=== PATIENT | male | born 1975 | race African-American/Black ===

== ENCOUNTER 2016-04-07 15:53 | Emergency (ER) | payer MEDICAID ==
[2016-04-07] MEDS ORDERED: NORMAL SALINE 1000 ML 1,000 ML IV ONE ×2 (16:42→19:04)
[2016-04-07] MEDS ORDERED: ONDANSETRON HCL INJ/PF 4 MG/2 ML SDV IV ONE ×2 (16:42→21:48)
[2016-04-07 17:11] LABS: HEMATOCRIT 56.2 % (37.9-51.0); HGB HCT DIFFERENCE -2.2; MEAN CORPUSCULAR HEMOGLOBIN 24.3 pg (27.0-33.4); MEAN CORPUSCULAR VOLUME 76 fl (80-97); RED CELL DISTRIBUTION WIDTH 16.2 % (11.5-14.0)
[2016-04-07 17:24] LABS: ALANINE AMINOTRANSFERASE 61 U/L (21-72); ALBUMIN 5.3 g/dL (3.5-5.0); ALKALINE PHOSPHATASE 82 U/L (38-126); ANION GAP 18 (5-19); ASPARTATE AMINO TRANSFERASE 34 U/L (17-59); BILIRUBIN,TOTAL 1.6 mg/dL (0.2-1.3); BLOOD UREA NITROGEN 18 mg/dL (7-20); CALCIUM 11.6 mg/dL (8.4-10.2); CARBON DIOXIDE 22 mmol/L (22-30); CHLORIDE 100 mmol/L (98-107); CREATININE RESULT 1.78 mg/dL (0.52-1.25); GLUCOSE 107 mg/dL (75-110); POTASSIUM 4.7 mmol/L (3.6-5.0); SODIUM 139.6 mmol/L (137-145)
[2016-04-07 17:34] LABS: BAND NEUTROPHILS % (MANUAL) 1 % (3-5); BASOPHILS % (MANUAL) 2 % (0-2); EOSINOPHILS % (MANUAL) 0 % (0-6); LYMPHOCYTES % (MANUAL) 5 % (13-45); TOTAL CELLS COUNTED 100
[2016-04-07 17:37] LABS: ANISOCYTOSIS 1+; HYPOCHROMASIA SLIGHT; MICROCYTOSIS 2+; OVALOCYTES SLIGHT; POIKILOCYTOSIS 1+; TARGET CELLS SLIGHT
[2016-04-07 17:38] LABS: RED BLOOD COUNT 7.39 10^6/uL (4.35-5.55)
--- NOTE | 2016-04-07 19:08 | ER Document Report ---
ED General - General Chief Complaint: Nausea/Vomiting Stated Complaint: NAUSEA/VOMITING Notes: Patient is a 41-year-old male with past medical history of stage IV colon cancer on active chemotherapy presents with vomiting and abdominal pain. States his primary concern is the vomiting as his level of abdominal pain today is typical for him. Described as a diffuse, cramping abdominal pain. Nothing improves or worsens his pain. Notes that he is had green output from the ostomy which is not uncommon for him. He has not seen his main doctor regarding today's concerns. He's had similar episodes in the past that required ED visits. He has not had any fever, cough weakness or numbness. TRAVEL OUTSIDE OF THE [place] IN LAST 30 DAYS: No - Related Data Allergies/Adverse Reactions: No Known Allergies Allergy (Verified 12/05/15 09:26) Past Medical History - General Information source: Patient - Social History Smoking Status: Never Smoker Frequency of alcohol use: None Drug Abuse: None Lives with: Family Family History: Reviewed & Not Pertinent - Past Medical History Cardiac Medical History: Reports: Hx Hypertension Pulmonary Medical History: Denies: Hx Tuberculosis Malignancy Medical History: Reports Hx Colorectal Cancer - With ileostomy placement. GI Medical History: Reports: Hx Colonoscopy Past Surgical History: Reports: Hx Abdominal Surgery - colon resection, Hx Appendectomy, Hx Bowel Surgery - Partial bowel resection, partial splenectomy, Hx Cholecystectomy, Hx Ileostomy - Immunizations Hx Diphtheria, Pertussis, Tetanus Vaccination: No Hx Pneumococcal Vaccination: 01/16/13 Review of Systems - Review of Systems Notes: Constitutional: Negative for fever. HENT: Negative for sore throat. Eyes: Negative for visual changes. Cardiovascular: Negative for chest pain. Respiratory: Negative for shortness of breath. Gastrointestinal: Positive for abdominal pain, vomiting Genitourinary: Negative for dysuria. Musculoskeletal: Negative for back pain. Skin: Negative for rash. Neurological: Negative for headaches, weakness or numbness. 10 point ROS negative except as marked above and in HPI. Physical Exam - Vital signs Vitals: Temp Pulse Resp BP Pulse Ox 97.5 F 82 20 115/82 98 04/07/16 16:05 04/07/16 16:05 04/07/16 16:05 04/07/16 16:05 04/07/16 16:05 Interpretation: Normal Notes: PHYSICAL EXAMINATION: GENERAL: Well-appearing, well-nourished and in no acute distress. HEAD: Atraumatic, normocephalic. EYES: Pupils equal round and reactive to light, extraocular movements intact, sclera anicteric, conjunctiva are normal. ENT: nares patent, oropharynx clear without exudates. Moist mucous membranes. NECK: Normal range of motion, supple without lymphadenopathy LUNGS: Breath sounds clear to auscultation bilaterally and equal. No wheezes rales or rhonchi. HEART: Regular rate and rhythm without murmurs ABDOMEN: Soft, diffuse mild tenderness, normoactive bowel sounds. No guarding, no rebound. No masses appreciated. Ostomy with liquid green output. EXTREMITIES: Normal range of motion, no pitting or edema. No cyanosis. NEUROLOGICAL: No focal neurological deficits. Moves all extremities spontaneously and on command. PSYCH: Normal mood, normal affect. SKIN: Warm, Dry, normal turgor, no rashes or lesions noted. Course - Re-evaluation Re-evalutation: 04/07/16 19:06 Patient presents with vomiting and diffuse abdominal pain in the setting of stage IV metastatic colon cancer, actively on chemotherapy his ostomy is having clear, bilious output. He has diffuse abdominal pain without rebound or guarding. Primary concern is bowel obstruction versus ileus. His labs do demonstrate prominent leukocytosis with associated hemoconcentration. His other vitals are within normal limits and I do not suspect sepsis at this time. A bowel perforation is also on the differential although I think this is less likely given his overall nontoxic appearance and absence of any peritoneal signs on abdominal exam. He will receive fluids, pain control, antiemetics and a CT scan of the abdomen and pelvis without contrast due to his acute kidney injury and inability to tolerate oral intake at this time. 04/07/16 20:[address] scan of the abdomen and pelvis does not show any evidence of an obstruction or ileus. States his abdominal pain is improved at this time. He is not tolerating oral intake. Vitals remain within normal limits. I do suspect that the elevated white blood cell count was due to hemoconcentration as demonstrated by an elevated hemoglobin and platelet count as well as patient' s episodes of vomiting prior to arrival. He is overall very well in appearance this time. Review of prior medical records show that he often has a green output from his ostomy that this is not different and patient does confirm this. At this time will discharge with return precautions and follow-up recommendations. Verbal discharge instructions given a the bedside and opportunity for questions given. Medication warnings reviewed. Patient is in agreement with this plan and has verbalized understanding of return precautions and the need for primary care follow-up in the next 24-72 hours. - Vital Signs Vital signs: Temp Pulse Resp BP Pulse Ox 97.5 F 82 12 128/96 H 91 L 04/07/16 16:05 04/07/16 16:05 04/08/16 02:01 04/08/16 02:00 04/08/16 02:01 - Laboratory Result Diagrams: 04/07/16 16:40 04/07/16 16:40 Laboratory results interpreted by me: 04/07/16 04/07/16 16:40 16:40 WBC 20.0 H RBC 7.39 H Hgb 18.0 H Hct 56.2 H MCV 76 L MCH 24.3 L RDW 16.2 H Plt Count 452 H Seg Neuts % (Manual) 86 H Band Neutrophils % 1 L Lymphocytes % (Manual) 5 L Abs Neuts (Manual) 17.4 H Abs Basophils (Manual) 0.4 H Creatinine 1.78 H Est GFR ( Amer) 51 L Est GFR (Non-Af Amer) 42 L Calcium 11.6 H Total Bilirubin 1.6 H Total Protein 10.0 H Albumin 5.3 H - Diagnostic Test Radiology reviewed: Reports reviewed Discharge - Discharge Clinical Impression: Abdominal pain Qualifiers: Abdominal location: generalized Qualified Code(s): R10.84 - Generalized abdominal pain Vomiting Qualifiers: Vomiting type: unspecified Vomiting Intractability: non-intractable Nausea presence: with nausea Qualified Code(s): R11.2 - Nausea with vomiting, unspecified Condition: Good Disposition: HOME, SELF-CARE Additional Instructions: Your CT scan today was normal and did not show any evidence of an obstruction. You need to follow-up with her primary doctors at your earliest ability. Return to the emergency department immediately if you have persistent vomiting, pass out, have worsening abdominal pain, develop a fever greater than 100.4F, or have any other symptoms that are worrisome to you. Referrals: ANDREI WILLARD MD [Primary Care Provider] - Follow up tomorrow
[2016-04-07] MEDS: HYDROMORPHONE HCL INJ/PF 2 MG/ML AMPULE IV PRN ×2 (19:19→21:56)
[2016-04-07] MEDS ORDERED: PROMETHAZINE HCL INJ 25 MG/1 ML VIAL IV ONE (20:23)
[2016-04-07] MEDS ORDERED: METOCLOPRAMIDE HCL INJ/PF 10 MG/2 ML SDV IV ONE (20:39)
[2016-04-08] MEDS ORDERED: NALOXONE HCL INJ/PF 0.4 MG/1 ML SDV IV ONE (00:16)
[2016-04-08 02:04] VITALS: BP 128/96
== END 2016-04-08 02:23 | disposition home or self-care (01) ==
LOC: ER 15:53
DX: R11.2 Nausea with vomiting, unspecified (principal); R10.84 Generalized abdominal pain; C18.9 Malignant neoplasm of colon, unspecified; I10 Essential (primary) hypertension; Z93.3 Colostomy status
CPT/HCPCS: 36591; 96376; 99284; 96361; 96374; 96375; 36415; 85025; 80053; 74176; J2765; J2310; J1170; J2405; J7030

== ENCOUNTER 2016-05-29 06:33 | Inpatient (IN) | payer MEDICAID ==
[2016-05-29] MEDS ORDERED: NORMAL SALINE 1,000 ML IV ONE (07:30)
--- NOTE | 2016-05-29 07:30 | ER Document Report ---
ED GI/ - General Mode of Arrival: Medic Information source: Patient TRAVEL OUTSIDE OF THE [place] IN LAST 30 DAYS: No - HPI Patient complains to provider of: Abdominal pain Onset: Other - x2 days Timing/Duration: Persistent Associated symptoms: Fever, Vomiting Similar symptoms previously: Yes Recently seen / treated by doctor: Yes <CYN SCHMITT - Last Filed: 05/29/16 08:23> <ABHILASH MANZANARES - Last Filed: 05/29/16 17:08> - General Stated Complaint: URINARY PROBLEMS Notes: Patient is a 41-year-old male that presents to the emergency department today with complaints of abdominal pain for 2 days. Patient is on chemotherapy, and has been every other week for 11 years according to him for colorectal. Patient 's last chemotherapy treatment was 3 days ago. Patient states his bladder felt hard and he has had associated vomiting and hematuria. Patient states his pain today feels similar to when his ileostomy is obstructed however he usually has constant vomiting when that occurs. Patient states yesterday he felt hot and had a temperature of 100.6 in the ambulance on the way here today. Patient states he vomited once last night. Patient states he has a mild cough and has had one for a few weeks and was started on an antibiotic by his oncologist but he cannot remember which one. (CYN SCHMITT) - Related Data Allergies/Adverse Reactions: No Known Allergies Allergy (Verified 12/05/15 09:26) Home Medications: Current Home Medications Alprazolam [Xanax 0.5 mg Tablet] 0.5 mg PO BID 05/29/16 [History] Diphenoxylate HCl/Atropine [Lomotil 2.5-0.025 mg Tablet] 1 tab PO TIDP PRN 05/29 [History] Hydromorphone HCl [Dilaudid] 8 mg PO Q4HP PRN 05/29/16 [History] Ondansetron HCl [Zofran 8 mg Tablet] 8 mg PO Q8HP PRN 05/29/16 [History] Promethazine HCl [Phenergan] 25 mg PO Q6 05/29/16 [History] Zolpidem Tartrate [Ambien 5 mg Tablet] 5 mg PO HSP PRN 05/29/16 [History] Past Medical History - General Information source: Patient, [facility] Records - Social History Smoking Status: Unknown if Ever Smoked Cigarette use (# per day): No Frequency of alcohol use: None Drug Abuse: None Lives with: Family Family History: Reviewed & Not Pertinent - Past Medical History Cardiac Medical History: Reports: Hx Hypertension Malignancy Medical History: Reports Hx Colorectal Cancer - With ileostomy placement. GI Medical History: Reports: Hx Colonoscopy Past Surgical History: Reports: Hx Abdominal Surgery - colon resection, Hx Appendectomy, Hx Bowel Surgery - Partial bowel resection, partial splenectomy, Hx Cholecystectomy, Hx Ileostomy - Immunizations Hx Diphtheria, Pertussis, Tetanus Vaccination: No Hx Pneumococcal Vaccination: 01/16/13 <GIANNA SCHMITTON - Last Filed: 05/29/16 08:23> Review of Systems - Review of Systems Constitutional: See HPI, Fever EENT: No symptoms reported Cardiovascular: No symptoms reported Respiratory: See HPI, Cough Gastrointestinal: See HPI, Vomiting Genitourinary: See HPI, Hematuria Male Genitourinary: No symptoms reported Musculoskeletal: No symptoms reported Skin: No symptoms reported Hematologic/Lymphatic: No symptoms reported Neurological/Psychological: No symptoms reported -: Yes All other systems reviewed and negative <CYN SCHMITT - Last Filed: 05/29/16 08:23> Physical Exam <CYN SCHMITT - Last Filed: 05/29/16 08:23> <ABHILASH MANZANARES - Last Filed: 05/29/16 17:08> - Vital signs Vitals: Temp Pulse Resp BP Pulse Ox 99.6 F 88 18 127/86 H 98 05/29/16 07:33 05/29/16 07:33 05/29/16 07:33 05/29/16 07:33 05/29/16 07:33 - Notes Notes: Physical Exam: General: Alert, appears uncomfortable. HEENT: Normocephalic. Atraumatic. PERRL. Extraocular movements intact. Oropharynx clear. Neck: Supple. Non-tender. Respiratory: No respiratory distress. Clear and equal breath sounds bilaterally. Cardiovascular: Regular rate and rhythm. Abdominal: Diffuse lower abdominal tenderness, ileostomy in place. Decreased bowel Sounds. Back: Non-tender. No deformity or step off. Extremities: Moves all four extremities. Upper extremities: Normal inspection. Normal ROM. Lower extremities: Normal inspection. No edema. Normal ROM. Neurological: Normal cognition. AAOx4. Normal speech. Psychological: Normal affect. Normal Mood. Skin: Warm. Dry. Normal color. (CYN SCHMITT) Course - Laboratory Result Diagrams: 05/29/16 07:45 05/29/16 07:45 <CYN SCHMITT - Last Filed: 05/29/16 08:23> - Laboratory Result Diagrams: 05/29/16 07:45 05/29/16 08:50 <ABHILASH MANZANARES - Last Filed: 05/29/16 17:08> - Re-evaluation Re-evalutation: 05/29/16 10:11 Patient's has history of colon cancer and is status post ileostomy presents complaining of severe abdominal pain. The patient does have a history of small bowel obstruction and is concerned that he may have same. He said this morning he started "pissing blood". On exam, the patient appears uncomfortable, vital signs are stable except patient is febrile. The abdominal exam reveals tenderness in the lower quadrants however is soft, but with diminished bowel sounds. Medical decision making: This patient has a fever and abdominal pain with history of colon cancer. Concern for possible SBO, abscess, fistula. Awaiting CT results. He shouldn't being treated with IV fluids, analgesics and nausea medications. Antibiotics will be started empirically. (ABHILASH MANZANARES) - Vital Signs Vital signs: Temp Pulse Resp BP Pulse Ox 99.6 F 88 18 127/86 H 98 05/29/16 07:33 05/29/16 07:33 05/29/16 07:33 05/29/16 07:33 05/29/16 07:33 - Laboratory Laboratory results interpreted by me: 05/29/16 05/29/16 05/29/16 07:45 08:10 08:50 WBC 17.8 H RBC 5.95 H MCV 75 L MCH 23.8 L MCHC 31.7 L RDW 16.8 H Seg Neutrophils % 84.2 H Lymphocytes % 5.3 L Absolute Neutrophils 15.0 H Absolute Monocytes 1.8 H Carbon Dioxide 21 L Lipase 16.4 L Urine Protein 100 H Urine Ketones 20 H Urine Blood MODERATE H Ur Leukocyte Esterase LARGE H Discharge <CYN SCHMITT - Last Filed: 05/29/16 08:23> - Discharge Admitting Provider: Hospitalist Unit Admitted: Medical Floor <ABHILASH MANZANARES - Last Filed: 05/29/16 17:08> - Discharge Clinical Impression: SIRS (systemic inflammatory response syndrome) UTI (urinary tract infection) Qualifiers: Urinary tract infection type: site unspecified Hematuria presence: with hematuria Qualified Code(s): N39.0 - Urinary tract infection, site not specified Scribe Attestation: 05/29/16 13:29 I personally performed the services described in the documentation, reviewed and edited the documentation which was dictated to the scribe in my presence, and it accurately records my words and actions. (ABHILASH MANZANARES) Scribe Documentation - Scribe Written by Scribe:: Tamara Hernandez, 05/29/2016 0818 acting as scribe for :: Strong <CYN SCHMITT - Last Filed: 05/29/16 08:23>
[2016-05-29] MEDS ORDERED: MORPHINE SULFATE 10 MG/ML INJ IV ONE ×2 (07:31→10:09)
[2016-05-29] MEDS ORDERED: DIPHENHYDRAMINE HCL 50 MG/ML VIAL IV ONE ×2 (07:32→13:39)
[2016-05-29] MEDS ORDERED: METOCLOPRAMIDE HCL INJ/PF 10 MG/2 ML SDV IV ONE ×2 (07:32→13:39)
[2016-05-29 08:08] LABS: ABSOLUTE BASOPHILS # (AUTO) 0.1 10^3/uL (0.0-0.2); ABSOLUTE LYMPHOCYTES (AUTO) 0.9 10^3/uL (0.5-4.7); ABSOLUTE MONOCYTES (AUTO) 1.8 10^3/uL (0.1-1.4); BASOPHILS % (AUTO) 0.5 % (0-2); EOSINOPHILS % (AUTO) 0.1 % (0-6); HEMATOCRIT 44.7 % (37.9-51.0); HEMOGLOBIN 14.1 g/dL (13.5-17.0); HGB HCT DIFFERENCE -2.4; LYMPHOCYTES % (AUTO) 5.3 % (13-45); MEAN CORPUSCULAR HEMOGLOBIN 23.8 pg (27.0-33.4); MEAN CORPUSCULAR HGB CONC 31.7 g/dL (32.0-36.0); MEAN CORPUSCULAR VOLUME 75 fl (80-97); MONOCYTES % (AUTO) 9.9 % (3-13); RED BLOOD COUNT 5.95 10^6/uL (4.35-5.55); RED CELL DISTRIBUTION WIDTH 16.8 % (11.5-14.0); SEGMENTED NEUTROPHILS % (AUTO) 84.2 % (42-78); WHITE BLOOD COUNT 17.8 10^3/uL (4.0-10.5)
[2016-05-29 08:42] LABS: APPEARANCE,URINE TURBID; BILIRUBIN,URINE NEGATIVE (NEGATIVE); GLUCOSE, URINE NEGATIVE (NEGATIVE); KETONES,URINE 20 mg/dL (NEGATIVE); LEUKOCYTE ESTERASE,URINE LARGE (NEGATIVE); NITRITE,URINE NEGATIVE (NEGATIVE); PROTEIN,URINE 100 mg/dL (NEGATIVE); UROBILINOGEN,URINE NEGATIVE mg/dL (<2.0)
[2016-05-29 09:25] LABS: ALANINE AMINOTRANSFERASE 42 U/L (21-72); ALBUMIN 3.7 g/dL (3.5-5.0); ALKALINE PHOSPHATASE 56 U/L (38-126); ANION GAP 16 (5-19); ASPARTATE AMINO TRANSFERASE 22 U/L (17-59); BILIRUBIN,DIRECT 0.2 mg/dL (0.0-0.4); BLOOD UREA NITROGEN 7 mg/dL (7-20); CALCIUM 9.2 mg/dL (8.4-10.2); CARBON DIOXIDE 21 mmol/L (22-30); CHLORIDE 102 mmol/L (98-107); CREATININE RESULT 0.82 mg/dL (0.52-1.25); GLUCOSE 85 mg/dL (75-110); LIPASE 16.4 U/L (23-300); POTASSIUM 4.3 mmol/L (3.6-5.0); SODIUM 138.9 mmol/L (137-145); TOTAL PROTEIN 6.9 g/dL (6.3-8.2)
[2016-05-29] MEDS ORDERED: PIPERACILLIN/TAZOBACTAM 3.375 GM VIAL IV ONE (10:13)
[2016-05-29] MEDS ORDERED: KETOROLAC TROMETHAMINE INJ/PF 30 MG/1 ML SDV IV ONE (13:38)
[2016-05-29] MEDS: HEPARIN SOD (PORCINE) 5,000 UNIT/ML 1 ML SYRINGE SUBCUT SCH ×2 (13:58→22:09)
--- NOTE | 2016-05-29 16:52 | PDOC H&P ---
History of Present Illness Admission Date/PCP: 05/29/16 13:24 ANDREI WILLARD MD Oncologist: Dr. Lewis Patient complains of: Bladder pain History of Present Illness: Mr. Mansfield is a 41-year-old -[place] male with a past medical history of colon cancer with ileostomy that is well known to the hospitalist service. The patient presents to the emergency department with complaints of abdominal pain for 2 days. Patient is on chemotherapy, and has been every other week for 11 years according to him for colorectal. Patient's last chemotherapy treatment was 3 days ago. Patient states his bladder felt hard and he has had associated vomiting and hematuria. Patient states his pain today feels similar to when his ileostomy is obstructed however he usually has constant vomiting when that occurs. Patient states yesterday he felt hot and had a temperature of 100.6 in the ambulance on the way here today. Patient states he vomited once last night. Patient states he has a mild cough and has had one for a few weeks and was started on an antibiotic by his oncologist but he cannot remember which one. On the emergency department the patient had a CT which was not specific for obstructive process. According to the patient he does not feel instructed at this time. The patient's leukocytosis and UA were suggestive of UTI and the patient was referred to the hospitalist formation and management. Past Medical History Cardiac Medical History: Reports: Hypertension Malignancy Medical History: Reports: Colorectal Cancer - With ileostomy placement. GI Medical History: Reports: Other - Recurrent small bowel obstructions Psychiatric Medical History: Reports: Other - Opiate dependence Past Surgical History Past Surgical History: Reports: Appendectomy, Cholecystectomy, Ileostomy, Splenectomy - Partial Social History Information Source: Patient Occupation: Disabled Lives with: Family Smoking Status: Unknown if Ever Smoked Frequency of Alcohol Use: None Hx Recreational Drug Use: No Hx Prescription Drug Abuse: No - Advance Directive Resuscitation Status: Full Code Surrogate healthcare decision maker:: Mother Family History Family History: Reviewed & Not Pertinent Parental Family History Reviewed: Yes Children Family History Reviewed: Yes Sibling(s) Family History Reviewed.: Yes Medication/Allergy Home Medications: Alprazolam [Xanax 0.5 mg Tablet] 0.5 mg PO BID 05/29/16 Diphenoxylate HCl/Atropine [Lomotil 2.5-0.025 mg Tablet] 1 tab PO TIDP PRN 05/29 Hydromorphone HCl [Dilaudid] 8 mg PO Q4HP PRN 05/29/16 Ondansetron HCl [Zofran 8 mg Tablet] 8 mg PO Q8HP PRN 05/29/16 Promethazine HCl [Phenergan] 25 mg PO Q6 05/29/16 Zolpidem Tartrate [Ambien 5 mg Tablet] 5 mg PO HSP PRN 05/29/16 Allergies/Adverse Reactions: No Known Allergies Allergy (Verified 12/05/15 09:26) Review of Systems Constitutional: ABSENT: chills, fever(s), headache(s), weight gain, weight loss Eyes: ABSENT: visual disturbances Ears: ABSENT: hearing changes Cardiovascular: ABSENT: chest pain, dyspnea on exertion, edema, orthropnea, palpitations Respiratory: ABSENT: cough, hemoptysis Gastrointestinal: PRESENT: abdominal pain, nausea, vomiting. ABSENT: constipation, diarrhea, hematemesis, hematochezia Genitourinary: PRESENT: difficulty urinating, dysuria. ABSENT: hematuria Musculoskeletal: ABSENT: joint swelling Integumentary: ABSENT: rash, wounds Neurological: ABSENT: abnormal gait, abnormal speech, confusion, dizziness, focal weakness, syncope Psychiatric: ABSENT: anxiety, depression, homidical ideation, suicidal ideation Endocrine: ABSENT: cold intolerance, heat intolerance, polydipsia, polyuria Hematologic/Lymphatic: ABSENT: easy bleeding, easy bruising Physical Exam Vital Signs: Temp Pulse Resp BP Pulse Ox 99.6 F 88 18 127/86 H 98 05/29/16 07:33 05/29/16 07:33 05/29/16 07:33 05/29/16 07:33 05/29/16 07:33 Intake & Output 05/27/16 05/28/16 05/29/16 23:59 23:59 23:59 Weight 65 kg General appearance: PRESENT: no acute distress, well-developed, well-nourished Head exam: PRESENT: atraumatic, normocephalic Eye exam: PRESENT: conjunctiva pink, EOMI, PERRLA. ABSENT: scleral icterus Ear exam: PRESENT: normal external ear exam Mouth exam: PRESENT: moist, tongue midline Neck exam: ABSENT: carotid bruit, JVD, lymphadenopathy, thyromegaly Respiratory exam: PRESENT: clear to auscultation luisa. ABSENT: rales, rhonchi, wheezes Cardiovascular exam: PRESENT: RRR. ABSENT: diastolic murmur, rubs, systolic murmur Pulses: PRESENT: normal dorsalis pedis pul Vascular exam: PRESENT: normal capillary refill GI/Abdominal exam: PRESENT: firm, normal bowel sounds, soft, tenderness, other - Ileostomy with green output. ABSENT: distended, guarding, mass, organolmegaly , rebound Rectal exam: PRESENT: deferred Extremities exam: PRESENT: full ROM. ABSENT: calf tenderness, clubbing, pedal edema Neurological exam: PRESENT: alert, awake, oriented to person, oriented to place , oriented to time, oriented to situation, CN II-XII grossly intact. ABSENT: motor sensory deficit Psychiatric exam: PRESENT: appropriate affect, normal mood. ABSENT: homicidal ideation, suicidal ideation Skin exam: PRESENT: dry, intact, warm. ABSENT: cyanosis, rash Results Laboratory Results: Labs- Last Values WBC 17.8 10^3/uL (4.0-10.5) H 05/29/16 07:45 RBC 5.95 10^6/uL (4.35-5.55) H 05/29/16 07:45 Hgb 14.1 g/dL (13.5-17.0) 05/29/16 07:45 Hct 44.7 % (37.9-51.0) 05/29/16 07:45 MCV 75 fl (80-97) L 05/29/16 07:45 MCH 23.8 pg (27.0-33.4) L 05/29/16 07:45 MCHC 31.7 g/dL (32.0-36.0) L 05/29/16 07:45 RDW 16.8 % (11.5-14.0) H 05/29/16 07:45 Plt Count 445 10^3/uL (150-450) 05/29/16 07:45 Seg Neutrophils % 84.2 % (42-78) H 05/29/16 07:45 Lymphocytes % 5.3 % (13-45) L 05/29/16 07:45 Monocytes % 9.9 % (3-13) 05/29/16 07:45 Eosinophils % 0.1 % (0-6) 05/29/16 07:45 Basophils % 0.5 % (0-2) 05/29/16 07:45 Absolute Neutrophils 15.0 10^3/uL (1.7-8.2) H 05/29/16 07:45 Absolute Lymphocytes 0.9 10^3/uL (0.5-4.7) 05/29/16 07:45 Absolute Monocytes 1.8 10^3/uL (0.1-1.4) H 05/29/16 07:45 Absolute Eosinophils 0.0 10^3/uL (0.0-0.6) 05/29/16 07:45 Absolute Basophils 0.1 10^3/uL (0.0-0.2) 05/29/16 07:45 Sodium 138.9 mmol/L (137-145) 05/29/16 08:50 Potassium 4.3 mmol/L (3.6-5.0) 05/29/16 08:50 Chloride 102 mmol/L (98-107) 05/29/16 08:50 Carbon Dioxide 21 mmol/L (22-30) L 05/29/16 08:50 Anion Gap 16 (5-19) 05/29/16 08:50 BUN 7 mg/dL (7-20) 05/29/16 08:50 Creatinine 0.82 mg/dL (0.52-1.25) 05/29/16 08:50 Est GFR ( Amer) > 60 (>60) 05/29/16 08:50 Est GFR (Non-Af Amer) > 60 (>60) 05/29/16 08:50 Glucose 85 mg/dL (75-110) 05/29/16 08:50 Lactic Acid 1.1 mmol/L (0.7-2.1) 05/29/16 07:45 Calcium 9.2 mg/dL (8.4-10.2) 05/29/16 08:50 Total Bilirubin 1.0 mg/dL (0.2-1.3) 05/29/16 08:50 Direct Bilirubin 0.2 mg/dL (0.0-0.4) 05/29/16 08:50 Indirect Bilirubin Not Reportable 05/29/16 08:50 Neonat Total Bilirubin Not Reportable 05/29/16 08:50 AST 22 U/L (17-59) 05/29/16 08:50 ALT 42 U/L (21-72) 05/29/16 08:50 Alkaline Phosphatase 56 U/L (38-126) 05/29/16 08:50 Total Protein 6.9 g/dL (6.3-8.2) 05/29/16 08:50 Albumin 3.7 g/dL (3.5-5.0) 05/29/16 08:50 Lipase 16.4 U/L (23-300) L 05/29/16 08:50 Urine Color YELLOW 05/29/16 08:10 Urine Appearance TURBID 05/29/16 08:10 Urine pH 5.0 (5.0-9.0) 05/29/16 08:10 Ur Specific [place] 1.010 05/29/16 08:10 Urine Protein 100 mg/dL (NEGATIVE) H 05/29/16 08:10 Urine Glucose (UA) NEGATIVE mg/dL (NEGATIVE) 05/29/16 08:10 Urine Ketones 20 mg/dL (NEGATIVE) H 05/29/16 08:10 Urine Blood MODERATE (NEGATIVE) H 05/29/16 08:10 Urine Nitrite NEGATIVE (NEGATIVE) 05/29/16 08:10 Urine Bilirubin NEGATIVE (NEGATIVE) 05/29/16 08:10 Urine Urobilinogen NEGATIVE mg/dL (<2.0) 05/29/16 08:10 Ur Leukocyte Esterase LARGE (NEGATIVE) H 05/29/16 08:10 Urine WBC (Auto) >182 /HPF 05/29/16 08:10 Urine RBC (Auto) 93 /HPF 05/29/16 08:10 Urine Bacteria (Auto) 1+ /HPF 05/29/16 08:10 Urine WBC Clumps MANY /HPF 05/29/16 08:10 Urine Ascorbic Acid NEGATIVE (NEGATIVE) 05/29/16 08:10 Impressions: Abdomen/Pelvis CT 05/29/16 07:35 IMPRESSION: STABLE APPEARANCE OF THE ABDOMEN AND PELVIS. EXTENSIVE SURGICAL CHANGES. APPARENTLY LOCULATED FLUID COLLECTIONS INTERSPERSED AMONG THE BOWEL LOOPS HAVE A SIMILAR APPEARANCE TO THE PRIOR STUDIES. NO DEFINITE ACUTE FINDINGS. Chest X-Ray 05/29/16 10:32 IMPRESSION: STABLE MILD SCARRING IN THE RIGHT LUNG BASE. NO ACUTE RADIOGRAPHIC FINDING IN THE CHEST. Assessment & Plan - Diagnosis (1) UTI (urinary tract infection) Qualifiers: Urinary tract infection type: site unspecified Hematuria presence: with hematuria Qualified Code(s): N39.0 - Urinary tract infection, site not specified Is this a current diagnosis for this admission?: YesPlan: Will admit the patient to inpatient telemetry. Will cover the patient with antibiotics IV antibiotic coverage and await for culture and sensitivity. (2) SIRS (systemic inflammatory response syndrome) Is this a current diagnosis for this admission?: Yes (3) Opiate dependence, continuous Is this a current diagnosis for this admission?: YesPlan: Currently awaiting med reconciliation (4) Anemia of chronic disease Is this a current diagnosis for this admission?: Yes (5) Ileostomy in place Is this a current diagnosis for this admission?: Yes (6) Nutrition Is this a current diagnosis for this admission?: Yes - Time Time Spent: 50 to 70 Minutes Anticipated discharge: Home Within: within 48 hours Disposition: The patient is a full code. Pending patient's symptomatology and diagnostic findings will reevaluate in the a.m.
[2016-05-29] MEDS ORDERED: LACTULOSE SYRUP 20 GM/30 ML UDCUP PO ONE (20:04)
[2016-05-29] MEDS: HYDROMORPHONE HCL INJ/PF 2 MG/ML AMPULE SUBCUT PRN (20:44)
[2016-05-29] MEDS ORDERED: HALOPERIDOL LACTATE INJ 5 MG/1 ML VIAL IM ONE (21:45)
[2016-05-30] MEDS: HYDROMORPHONE HCL INJ/PF 2 MG/ML AMPULE SUBCUT PRN ×3 (00:31→08:47)
[2016-05-30] MEDS ORDERED: LEVOFLOXACIN 750 MG/D5W RTU 750 MG/150 ML RTUPB IV ONE ×2 (04:48→05:00)
[2016-05-30] MEDS: HEPARIN SOD (PORCINE) 5,000 UNIT/ML 1 ML SYRINGE SUBCUT SCH ×3 (05:18→21:36)
[2016-05-30] MEDS ORDERED: VANCOMYCIN HCL 1,000 MG in DEXTROSE 5%-WATER 250 ML IV ONE (06:22)
[2016-05-30] MEDS ORDERED: VANCOMYCIN HCL 0 MG in DEXTROSE 5%-WATER 250 ML IV NR (06:30)
[2016-05-30] MEDS ORDERED: PROMETHAZINE HCL 25 MG SUPP.RECT PR PRN (06:46)
[2016-05-30 07:22] LABS: HEMATOCRIT 40.5 % (37.9-51.0); HEMOGLOBIN 12.7 g/dL (13.5-17.0); HGB HCT DIFFERENCE -2.4; MEAN CORPUSCULAR HEMOGLOBIN 23.9 pg (27.0-33.4); MEAN CORPUSCULAR HGB CONC 31.3 g/dL (32.0-36.0); MEAN CORPUSCULAR VOLUME 76 fl (80-97); RED CELL DISTRIBUTION WIDTH 16.7 % (11.5-14.0); WHITE BLOOD COUNT 21.1 10^3/uL (4.0-10.5)
[2016-05-30 07:35] LABS: ANION GAP 16 (5-19); BLOOD UREA NITROGEN 7 mg/dL (7-20); CARBON DIOXIDE 24 mmol/L (22-30); CHLORIDE 98 mmol/L (98-107); CREATININE RESULT 0.77 mg/dL (0.52-1.25); GLUCOSE 94 mg/dL (75-110); POTASSIUM 3.7 mmol/L (3.6-5.0); SODIUM 137.5 mmol/L (137-145)
[2016-05-30] MEDS: VANCOMYCIN HCL 1,000 MG in DEXTROSE 5%-WATER 250 ML IV SCH ×2 (09:17→18:11)
[2016-05-30] MEDS: ALPRAZOLAM 0.5 MG TABLET PO SCH ×2 (09:21→18:11)
[2016-05-30] MEDS ORDERED: PHENAZOPYRIDINE HCL 200 MG TABLET PO SCH (10:00)
[2016-05-30] MEDS ORDERED: PHENAZOPYRIDINE HCL 200 MG TABLET PO ONE (11:00)
[2016-05-30] MEDS: PIPERACILLIN SODIUM/TAZOBACTAM 4.5 GM in NORMAL SALINE 100 ML IV SCH ×3 (12:18→23:06)
--- NOTE | 2016-05-30 12:47 | PDOC PROGRESS REPORT ---
Subjective Progress Note for:: 05/30/16 Subjective:: The patient was seen earlier today on rounds. The patient states that his bladder spasms are intermittent but overall have improved. The patient admits to abdominal pain. The patient states he tolerated breakfast however he had nausea and vomiting with dinner. The patient denies any excessive output from his ileostomy, shortness of breath, dizziness, chest pain, heart palpitations, fevers, or chills. The patient has remained afebrile. Blood pressures have been in a good range. When prompted the patient voices no other concerns at this time. Review of systems: The rest of the review of systems is negative. Physical Exam Vital Signs: Temp Pulse Resp BP Pulse Ox 99.7 F 92 18 126/84 H 98 05/30/16 07:36 05/30/16 07:36 05/30/16 07:36 05/30/16 07:36 05/30/16 07:36 Intake & Output 05/28/16 05/29/16 05/30/16 23:59 23:59 23:59 Intake Total 985 Output Total 550 Balance 435 Weight 65 kg 68 kg General appearance: PRESENT: no acute distress, well-developed, well-nourished Head exam: PRESENT: atraumatic, normocephalic Eye exam: PRESENT: conjunctiva pink, EOMI, PERRLA. ABSENT: scleral icterus Ear exam: PRESENT: normal external ear exam Mouth exam: PRESENT: moist, tongue midline Neck exam: ABSENT: carotid bruit, JVD, lymphadenopathy, thyromegaly Respiratory exam: PRESENT: clear to auscultation luisa. ABSENT: rales, rhonchi, wheezes Cardiovascular exam: PRESENT: RRR. ABSENT: diastolic murmur, rubs, systolic murmur Pulses: PRESENT: normal dorsalis pedis pul Vascular exam: PRESENT: normal capillary refill GI/Abdominal exam: PRESENT: firm, normal bowel sounds, soft, tenderness, other - Ileostomy with green output. ABSENT: distended, guarding, mass, organolmegaly , rebound Rectal exam: PRESENT: deferred Extremities exam: PRESENT: full ROM. ABSENT: calf tenderness, clubbing, pedal edema Neurological exam: PRESENT: alert, awake, oriented to person, oriented to place , oriented to time, oriented to situation, CN II-XII grossly intact. ABSENT: motor sensory deficit Psychiatric exam: PRESENT: appropriate affect, normal mood. ABSENT: homicidal ideation, suicidal ideation Skin exam: PRESENT: dry, intact, warm. ABSENT: cyanosis, rash Results Laboratory Results: 05/30/16 06:04 05/30/16 06:04 05/30/16 05/30/16 06:04 06:04 WBC 21.1 H RBC 5.30 Hgb 12.7 L Hct 40.5 MCV 76 L MCH 23.9 L MCHC 31.3 L RDW 16.7 H Plt Count 406 Sodium 137.5 Potassium 3.7 Chloride 98 Carbon Dioxide 24 Anion Gap 16 BUN 7 Creatinine 0.77 Est GFR ( Amer) > 60 Est GFR (Non-Af Amer) > 60 Glucose 94 Calcium 9.0 Impressions: Abdomen/Pelvis CT 05/29/16 07:35 IMPRESSION: STABLE APPEARANCE OF THE ABDOMEN AND PELVIS. EXTENSIVE SURGICAL CHANGES. APPARENTLY LOCULATED FLUID COLLECTIONS INTERSPERSED AMONG THE BOWEL LOOPS HAVE A SIMILAR APPEARANCE TO THE PRIOR STUDIES. NO DEFINITE ACUTE FINDINGS. Chest X-Ray 05/29/16 10:32 IMPRESSION: STABLE MILD SCARRING IN THE RIGHT LUNG BASE. NO ACUTE RADIOGRAPHIC FINDING IN THE CHEST. Assessment & Plan - Diagnosis (1) UTI (urinary tract infection) Qualifiers: Urinary tract infection type: site unspecified Hematuria presence: with hematuria Qualified Code(s): N39.0 - Urinary tract infection, site not specified Is this a current diagnosis for this admission?: YesPlan: Will add Pyridium. In spite of findings on UA urine culture did not reveal any growth this may be skewed by the patient's outpatient antibiotic use. Will continue broad-spectrum coverage for now given the patient's bump in white count. (2) SIRS (systemic inflammatory response syndrome) Is this a current diagnosis for this admission?: YesPlan: Will continue wrought antibiotic coverage given the patient's complicated medical history and increasing white count. Selected Entries 05/30/16 00:23 Temperature 100.2 F 05/29/16 05/30/16 07:45 06:04 WBC 17.8 H 21.1 H (3) Opiate dependence, continuous Is this a current diagnosis for this admission?: YesPlan: Resume home medications. (4) Anemia of chronic disease Is this a current diagnosis for this admission?: Yes (5) Ileostomy in place Is this a current diagnosis for this admission?: Yes (6) Nutrition Is this a current diagnosis for this admission?: Yes (7) Positive blood culture Is this a current diagnosis for this admission?: YesPlan: 1 blood cultures positive for gram-positive cocci. Possible contaminant. However given the patient's medical history will repeat blood cultures and follow. - Time Time Spent with patient: 25-34 minutes Medications reviewed and adjusted accordingly: Yes Anticipated discharge: Home Within: within 24 hours, within 48 hours Disposition: The patient is a full code. Pending patient's symptomatology and diagnostic findings will reevaluate in the a.m.
[2016-05-30] MEDS: HYDROMORPHONE HCL 2 MG TABLET PO PRN ×2 (13:35→20:23)
[2016-05-30] MEDS: PHENAZOPYRIDINE HCL 200 MG TABLET PO SCH ×2 (13:40→21:35)
[2016-05-30] MEDS: ONDANSETRON HCL 8 MG TABLET PO PRN (13:52)
[2016-05-30] MEDS: ACETAMINOPHEN 325 MG TABLET PO PRN (16:27)
[2016-05-30] MEDS: ZOLPIDEM TARTRATE 5 MG TABLET PO PRN (21:36)
[2016-05-31] MEDS: ACETAMINOPHEN 325 MG TABLET PO PRN ×2 (02:15→13:53)
[2016-05-31] MEDS: VANCOMYCIN HCL 1,000 MG in DEXTROSE 5%-WATER 250 ML IV SCH ×3 (02:15→18:17)
[2016-05-31] MEDS: HYDROMORPHONE HCL 2 MG TABLET PO PRN ×3 (02:20→21:39)
[2016-05-31] MEDS: HEPARIN SOD (PORCINE) 5,000 UNIT/ML 1 ML SYRINGE SUBCUT SCH ×3 (06:01→21:39)
[2016-05-31] MEDS: PHENAZOPYRIDINE HCL 200 MG TABLET PO SCH ×2 (06:01→13:53)
[2016-05-31] MEDS: PIPERACILLIN SODIUM/TAZOBACTAM 4.5 GM in NORMAL SALINE 100 ML IV SCH ×3 (06:01→17:19)
[2016-05-31 07:12] LABS: HEMATOCRIT 40.4 % (37.9-51.0); HGB HCT DIFFERENCE -1.4; MEAN CORPUSCULAR HEMOGLOBIN 24.2 pg (27.0-33.4); MEAN CORPUSCULAR HGB CONC 32.2 g/dL (32.0-36.0); MEAN CORPUSCULAR VOLUME 75 fl (80-97); RED BLOOD COUNT 5.39 10^6/uL (4.35-5.55); RED CELL DISTRIBUTION WIDTH 16.7 % (11.5-14.0); WHITE BLOOD COUNT 14.7 10^3/uL (4.0-10.5)
[2016-05-31 07:24] LABS: ANION GAP 12 (5-19); BLOOD UREA NITROGEN 7 mg/dL (7-20); CARBON DIOXIDE 30 mmol/L (22-30); CHLORIDE 97 mmol/L (98-107); CREATININE RESULT 1.07 mg/dL (0.52-1.25); GLUCOSE 84 mg/dL (75-110); POTASSIUM 3.4 mmol/L (3.6-5.0); SODIUM 139.4 mmol/L (137-145)
[2016-05-31] MEDS ORDERED: POTASSIUM CHLORIDE 10 MEQ TABLET.SA PO ONE (09:00)
[2016-05-31] MEDS: ALPRAZOLAM 0.5 MG TABLET PO SCH ×2 (09:03→17:19)
[2016-05-31] MEDS ORDERED: LEVOFLOXACIN 750 MG/D5W RTU 750 MG/150 ML RTUPB IV SCH (10:00)
[2016-05-31 10:37] LABS: CREATININE RESULT 1.29 mg/dL (0.52-1.25)
--- NOTE | 2016-05-31 11:31 | PDOC PROGRESS REPORT ---
Subjective Progress Note for:: 05/31/16 Subjective:: Patient is seen on morning rounds. He is presently resting in bed eating breakfast. He denies chest pain, shortness of breath or dyspnea. He denies any abdominal pain, nausea or vomiting. He denies fever or chills. He states he just feels tired. He did have an episode of hematuria with small clots this morning. He denies any significant arthralgias of myalgias this morning. Remainder of review of systems is negative Physical Exam Vital Signs: Temp Pulse Resp BP Pulse Ox 99.1 F 93 18 129/93 H 96 05/31/16 08:00 05/31/16 08:00 05/31/16 08:00 05/31/16 08:00 05/31/16 08:00 Intake & Output 05/30/16 05/31/16 06/01/16 06:59 06:59 06:59 Intake Total 985 2330 Output Total 550 3100 Balance 435 -770 Weight 68 kg 68 kg General appearance: PRESENT: no acute distress, well-developed, well-nourished Head exam: PRESENT: atraumatic, normocephalic Eye exam: PRESENT: conjunctiva pink, EOMI, PERRLA. ABSENT: scleral icterus Ear exam: PRESENT: normal external ear exam Mouth exam: PRESENT: moist, tongue midline Neck exam: ABSENT: carotid bruit, JVD, lymphadenopathy, thyromegaly Respiratory exam: PRESENT: clear to auscultation luisa. ABSENT: rales, rhonchi, wheezes Cardiovascular exam: PRESENT: RRR. ABSENT: diastolic murmur, rubs, systolic murmur Pulses: PRESENT: normal dorsalis pedis pul Vascular exam: PRESENT: normal capillary refill GI/Abdominal exam: PRESENT: ascites Rectal exam: PRESENT: deferred Extremities exam: PRESENT: full ROM. ABSENT: calf tenderness, clubbing, pedal edema Psychiatric exam: PRESENT: appropriate affect, normal mood. ABSENT: homicidal ideation, suicidal ideation Skin exam: PRESENT: dry, intact, warm. ABSENT: cyanosis, rash Results Laboratory Results: 05/31/16 06:57 05/31/16 09:50 05/31/16 05/31/16 05/31/16 06:57 06:57 09:50 WBC 14.7 H RBC 5.39 Hgb 13.0 L Hct 40.4 MCV 75 L MCH 24.2 L MCHC 32.2 RDW 16.7 H Plt Count 390 Sodium 139.4 Potassium 3.4 L Chloride 97 L Carbon Dioxide 30 Anion Gap 12 BUN 7 Creatinine 1.07 1.29 H Est GFR ( Amer) > 60 > 60 Est GFR (Non-Af Amer) > 60 > 60 Glucose 84 Calcium 9.0 Magnesium 2.0 Impressions: Abdomen/Pelvis CT 05/29/16 07:35 IMPRESSION: STABLE APPEARANCE OF THE ABDOMEN AND PELVIS. EXTENSIVE SURGICAL CHANGES. APPARENTLY LOCULATED FLUID COLLECTIONS INTERSPERSED AMONG THE BOWEL LOOPS HAVE A SIMILAR APPEARANCE TO THE PRIOR STUDIES. NO DEFINITE ACUTE FINDINGS. Chest X-Ray 05/29/16 10:32 IMPRESSION: STABLE MILD SCARRING IN THE RIGHT LUNG BASE. NO ACUTE RADIOGRAPHIC FINDING IN THE CHEST. Assessment & Plan - Diagnosis (1) UTI (urinary tract infection) Qualifiers: Urinary tract infection type: site unspecified Hematuria presence: with hematuria Qualified Code(s): N39.0 - Urinary tract infection, site not specified Is this a current diagnosis for this admission?: YesPlan: Continue broad spectrum antibiotics. Culture pending (2) SIRS (systemic inflammatory response syndrome) Is this a current diagnosis for this admission?: YesPlan: Improved with IV hydration and antibiotics. (3) Opiate dependence, continuous Is this a current diagnosis for this admission?: YesPlan: Continue present opiod pain medication (4) Positive blood culture Is this a current diagnosis for this admission?: YesPlan: One bottle positive. May be contaminant. Repeat cultures are pending. Will continue IV antibiotics (5) Anemia of chronic disease Is this a current diagnosis for this admission?: YesPlan: Presently stable - Time Time Spent with patient: 25-34 minutes Medications reviewed and adjusted accordingly: Yes Anticipated discharge: Home
[2016-05-31] MEDS: ONDANSETRON HCL 8 MG TABLET PO PRN (12:29)
[2016-05-31] MEDS: ZOLPIDEM TARTRATE 5 MG TABLET PO PRN (23:33)
[2016-06-01] MEDS: PIPERACILLIN SODIUM/TAZOBACTAM 4.5 GM in NORMAL SALINE 100 ML IV SCH ×5 (00:10→23:22)
[2016-06-01] MEDS: VANCOMYCIN HCL 1,000 MG in DEXTROSE 5%-WATER 250 ML IV SCH ×3 (01:29→20:22)
[2016-06-01] MEDS: HYDROMORPHONE HCL 2 MG TABLET PO PRN ×3 (03:35→22:26)
[2016-06-01] MEDS: HEPARIN SOD (PORCINE) 5,000 UNIT/ML 1 ML SYRINGE SUBCUT SCH ×3 (05:47→22:26)
[2016-06-01] MEDS: ALPRAZOLAM 0.5 MG TABLET PO SCH ×2 (10:43→18:07)
[2016-06-01] MEDS: ONDANSETRON HCL 8 MG TABLET PO PRN (13:59)
[2016-06-01] MEDS: ZOLPIDEM TARTRATE 5 MG TABLET PO PRN (22:26)
[2016-06-02] MEDS: VANCOMYCIN HCL 1,000 MG in DEXTROSE 5%-WATER 250 ML IV SCH (02:53)
[2016-06-02] MEDS: PIPERACILLIN SODIUM/TAZOBACTAM 4.5 GM in NORMAL SALINE 100 ML IV SCH (05:47)
[2016-06-02] MEDS: HEPARIN SOD (PORCINE) 5,000 UNIT/ML 1 ML SYRINGE SUBCUT SCH ×3 (05:47→21:58)
[2016-06-02 06:23] LABS: HEMATOCRIT 37.3 % (37.9-51.0); HEMOGLOBIN 11.7 g/dL (13.5-17.0); HGB HCT DIFFERENCE -2.2; MEAN CORPUSCULAR HEMOGLOBIN 23.6 pg (27.0-33.4); MEAN CORPUSCULAR HGB CONC 31.4 g/dL (32.0-36.0); MEAN CORPUSCULAR VOLUME 75 fl (80-97); RED BLOOD COUNT 4.97 10^6/uL (4.35-5.55); RED CELL DISTRIBUTION WIDTH 16.8 % (11.5-14.0); WHITE BLOOD COUNT 10.4 10^3/uL (4.0-10.5)
[2016-06-02 06:39] LABS: ANION GAP 11 (5-19); BLOOD UREA NITROGEN 14 mg/dL (7-20); CALCIUM 8.6 mg/dL (8.4-10.2); CARBON DIOXIDE 26 mmol/L (22-30); CHLORIDE 102 mmol/L (98-107); CREATININE RESULT 3.26 mg/dL (0.52-1.25); GLUCOSE 80 mg/dL (75-110); POTASSIUM 4.1 mmol/L (3.6-5.0); SODIUM 139.4 mmol/L (137-145)
[2016-06-02 06:55] LABS: BASOPHILS % (MANUAL) 1 % (0-2); EOSINOPHILS % (MANUAL) 2 % (0-6); LYMPHOCYTES % (MANUAL) 8 % (13-45); TOTAL CELLS COUNTED 100
[2016-06-02] MEDS: HYDROMORPHONE HCL 2 MG TABLET PO PRN ×3 (06:56→21:58)
[2016-06-02 06:57] LABS: ANISOCYTOSIS 1+; HOWELL-JOLLY BODIES PRESENT; POIKILOCYTOSIS 3+; POLYCHROMASIA SLIGHT; TARGET CELLS 3+
[2016-06-02] MEDS: CEFUROXIME 500 MG TABLET PO SCH ×2 (09:32→17:09)
[2016-06-02] MEDS: ALPRAZOLAM 0.5 MG TABLET PO SCH ×2 (09:32→17:09)
--- NOTE | 2016-06-02 11:51 | PDOC PROGRESS REPORT ---
Subjective Progress Note for:: 06/02/16 Subjective:: Patient is seen on morning rounds. He is presently resting in bed eating breakfast. He denies chest pain, shortness of breath or dyspnea. He denies any abdominal pain, nausea or vomiting. He denies fever or chills. He states he just feels tired. His urine is now clear with no further hematuria or clots. He denies any significant arthralgias of myalgias this morning. Remainder of review of systems is negative Physical Exam Vital Signs: Temp Pulse Resp BP Pulse Ox 98.5 F 75 20 94/59 L 100 06/02/16 07:34 06/02/16 07:34 06/02/16 07:34 06/02/16 07:34 06/02/16 07:34 Intake & Output 06/01/16 06/02/16 06/03/16 06:59 06:59 06:59 Intake Total 7296 2484 Output Total 2270 2775 Balance 5026 -291 Weight 69 kg 79.6 kg General appearance: PRESENT: no acute distress, well-developed, well-nourished Head exam: PRESENT: atraumatic, normocephalic Eye exam: PRESENT: conjunctiva pink, EOMI, PERRLA. ABSENT: scleral icterus Ear exam: PRESENT: normal external ear exam Mouth exam: PRESENT: moist, tongue midline Neck exam: ABSENT: carotid bruit, JVD, lymphadenopathy, thyromegaly Respiratory exam: PRESENT: clear to auscultation luisa. ABSENT: rales, rhonchi, wheezes Cardiovascular exam: PRESENT: RRR. ABSENT: diastolic murmur, rubs, systolic murmur Pulses: PRESENT: normal dorsalis pedis pul Vascular exam: PRESENT: normal capillary refill GI/Abdominal exam: PRESENT: normal bowel sounds, soft. ABSENT: distended, guarding, mass, organolmegaly, rebound, tenderness Rectal exam: PRESENT: deferred Extremities exam: PRESENT: full ROM. ABSENT: calf tenderness, clubbing, pedal edema Neurological exam: PRESENT: alert, awake, oriented to person, oriented to place , oriented to time, oriented to situation, CN II-XII grossly intact. ABSENT: motor sensory deficit Psychiatric exam: PRESENT: appropriate affect, normal mood. ABSENT: homicidal ideation, suicidal ideation Skin exam: PRESENT: dry, intact, warm. ABSENT: cyanosis, rash Results Laboratory Results: 06/02/16 05:30 06/02/16 05:30 06/02/16 06/02/16 05:30 05:30 WBC 10.4 RBC 4.97 Hgb 11.7 L Hct 37.3 L MCV 75 L MCH 23.6 L MCHC 31.4 L RDW 16.8 H Plt Count 473 H Seg Neutrophils % Not Reportable Lymphocytes % Not Reportable Monocytes % Not Reportable Eosinophils % Not Reportable Basophils % Not Reportable Absolute Neutrophils Not Reportable Absolute Lymphocytes Not Reportable Absolute Monocytes Not Reportable Absolute Eosinophils Not Reportable Absolute Basophils Not Reportable Sodium 139.4 Potassium 4.1 Chloride 102 Carbon Dioxide 26 Anion Gap 11 BUN 14 Creatinine 3.26 H Est GFR ( Amer) 25 L Est GFR (Non-Af Amer) 21 L Glucose 80 Calcium 8.6 Impressions: Abdomen/Pelvis CT 05/29/16 07:35 IMPRESSION: STABLE APPEARANCE OF THE ABDOMEN AND PELVIS. EXTENSIVE SURGICAL CHANGES. APPARENTLY LOCULATED FLUID COLLECTIONS INTERSPERSED AMONG THE BOWEL LOOPS HAVE A SIMILAR APPEARANCE TO THE PRIOR STUDIES. NO DEFINITE ACUTE FINDINGS. Chest X-Ray 05/29/16 10:32 IMPRESSION: STABLE MILD SCARRING IN THE RIGHT LUNG BASE. NO ACUTE RADIOGRAPHIC FINDING IN THE CHEST. Assessment & Plan - Diagnosis (1) UTI (urinary tract infection) Qualifiers: Urinary tract infection type: site unspecified Hematuria presence: with hematuria Qualified Code(s): N39.0 - Urinary tract infection, site not specified Is this a current diagnosis for this admission?: YesPlan: Continue broad spectrum antibiotics. Culture pending (2) SIRS (systemic inflammatory response syndrome) Is this a current diagnosis for this admission?: YesPlan: Improved with IV hydration and antibiotics. (3) Opiate dependence, continuous Is this a current diagnosis for this admission?: YesPlan: Continue present opiod pain medication (4) Positive blood culture Is this a current diagnosis for this admission?: YesPlan: One bottle positive. May be contaminant. Repeat cultures are pending. Will continue IV antibiotics (5) Anemia of chronic disease Is this a current diagnosis for this admission?: YesPlan: Presently stable - Time Time Spent with patient: 25-34 minutes Critical Time spent with patient: 15-24 minutes Medications reviewed and adjusted accordingly: Yes Anticipated discharge: Home Within: within 24 hours
--- NOTE | 2016-06-02 12:28 | PDOC PROGRESS REPORT ---
Subjective Progress Note for:: 06/01/16 Subjective:: Patient is seen on morning rounds. He is presently resting in bed eating breakfast. He denies chest pain, shortness of breath or dyspnea. He denies any abdominal pain, or vomiting. He has had some nausea over night. He denies any shortness of breath He denies fever or chills. His urine is now clear with no further hematuria or clots. He denies any significant arthralgias of myalgias this morning. He states he is supposed to get chemotherapy on Thursday. Remainder of review of systems is negative Physical Exam Vital Signs: Temp Pulse Resp BP Pulse Ox 98.5 F 75 20 94/59 L 100 06/02/16 07:34 06/02/16 07:34 06/02/16 07:34 06/02/16 07:34 06/02/16 07:34 Intake & Output 06/01/16 06/02/16 06/03/16 06:59 06:59 06:59 Intake Total 7296 2484 Output Total 2270 2775 Balance 5026 -291 Weight 69 kg 79.6 kg General appearance: PRESENT: no acute distress, well-developed, well-nourished Head exam: PRESENT: atraumatic, normocephalic Eye exam: PRESENT: conjunctiva pink, EOMI, PERRLA. ABSENT: scleral icterus Ear exam: PRESENT: normal external ear exam Mouth exam: PRESENT: moist, tongue midline Neck exam: ABSENT: carotid bruit, JVD, lymphadenopathy, thyromegaly Respiratory exam: PRESENT: clear to auscultation luisa. ABSENT: rales, rhonchi, wheezes Cardiovascular exam: PRESENT: RRR. ABSENT: diastolic murmur, rubs, systolic murmur Pulses: PRESENT: normal dorsalis pedis pul Vascular exam: PRESENT: normal capillary refill GI/Abdominal exam: PRESENT: normal bowel sounds, soft. ABSENT: distended, guarding, mass, organolmegaly, rebound, tenderness Rectal exam: PRESENT: deferred Extremities exam: PRESENT: full ROM. ABSENT: calf tenderness, clubbing, pedal edema Neurological exam: PRESENT: alert, awake, oriented to person, oriented to place , oriented to time, oriented to situation, CN II-XII grossly intact. ABSENT: motor sensory deficit Psychiatric exam: PRESENT: appropriate affect, normal mood. ABSENT: homicidal ideation, suicidal ideation Skin exam: PRESENT: dry, intact, warm. ABSENT: cyanosis, rash Results Laboratory Results: 06/02/16 05:30 06/02/16 05:30 06/02/16 06/02/16 05:30 05:30 WBC 10.4 RBC 4.97 Hgb 11.7 L Hct 37.3 L MCV 75 L MCH 23.6 L MCHC 31.4 L RDW 16.8 H Plt Count 473 H Seg Neutrophils % Not Reportable Lymphocytes % Not Reportable Monocytes % Not Reportable Eosinophils % Not Reportable Basophils % Not Reportable Absolute Neutrophils Not Reportable Absolute Lymphocytes Not Reportable Absolute Monocytes Not Reportable Absolute Eosinophils Not Reportable Absolute Basophils Not Reportable Sodium 139.4 Potassium 4.1 Chloride 102 Carbon Dioxide 26 Anion Gap 11 BUN 14 Creatinine 3.26 H Est GFR ( Amer) 25 L Est GFR (Non-Af Amer) 21 L Glucose 80 Calcium 8.6 Impressions: Abdomen/Pelvis CT 05/29/16 07:35 IMPRESSION: STABLE APPEARANCE OF THE ABDOMEN AND PELVIS. EXTENSIVE SURGICAL CHANGES. APPARENTLY LOCULATED FLUID COLLECTIONS INTERSPERSED AMONG THE BOWEL LOOPS HAVE A SIMILAR APPEARANCE TO THE PRIOR STUDIES. NO DEFINITE ACUTE FINDINGS. Chest X-Ray 05/29/16 10:32 IMPRESSION: STABLE MILD SCARRING IN THE RIGHT LUNG BASE. NO ACUTE RADIOGRAPHIC FINDING IN THE CHEST. Assessment & Plan - Diagnosis (1) UTI (urinary tract infection) Qualifiers: Urinary tract infection type: site unspecified Hematuria presence: with hematuria Qualified Code(s): N39.0 - Urinary tract infection, site not specified Is this a current diagnosis for this admission?: YesPlan: Continue broad spectrum antibiotics. Culture pending (2) SIRS (systemic inflammatory response syndrome) Is this a current diagnosis for this admission?: YesPlan: Improved with IV hydration and antibiotics. (3) Opiate dependence, continuous Is this a current diagnosis for this admission?: YesPlan: Continue present opiod pain medication (4) Positive blood culture Is this a current diagnosis for this admission?: YesPlan: One bottle positive. May be contaminant. Repeat cultures are pending. Will continue IV antibiotics (5) Anemia of chronic disease Is this a current diagnosis for this admission?: YesPlan: Presently stable - Time Time Spent with patient: 25-34 minutes Critical Time spent with patient: 15-24 minutes Medications reviewed and adjusted accordingly: Yes Anticipated discharge: Home Within: within 48 hours
[2016-06-02] MEDS: KETOROLAC TROMETHAMINE INJ/PF 30 MG/1 ML SDV IV PRN (20:40)
[2016-06-02] MEDS: ZOLPIDEM TARTRATE 5 MG TABLET PO PRN (21:58)
[2016-06-03] MEDS: KETOROLAC TROMETHAMINE INJ/PF 30 MG/1 ML SDV IV PRN (02:55)
[2016-06-03] MEDS: HYDROMORPHONE HCL 2 MG TABLET PO PRN ×2 (03:38→17:00)
[2016-06-03] MEDS: HEPARIN SOD (PORCINE) 5,000 UNIT/ML 1 ML SYRINGE SUBCUT SCH ×3 (05:35→21:33)
[2016-06-03] MEDS: ALPRAZOLAM 0.5 MG TABLET PO SCH ×2 (09:38→17:00)
[2016-06-03] MEDS: CEFUROXIME 500 MG TABLET PO SCH ×2 (09:39→17:00)
--- NOTE | 2016-06-03 13:27 | PDOC PROGRESS REPORT ---
Subjective Progress Note for:: 06/03/16 Subjective:: The patient was seen earlier today on rounds. The patient states that his bladder spasms have improved. The patient admits to abdominal pain. The patient states he tolerated breakfast however he had nausea and vomiting with dinner. The patient creatinine did rise significantly just overnight. The patient denies any excessive output from his ileostomy, shortness of breath, dizziness, chest pain, heart palpitations, fevers, or chills. The patient has remained afebrile. Blood pressures have been in a good range. When prompted the patient voices no other concerns at this time. Review of systems: The rest of the review of systems is negative. Physical Exam Vital Signs: Temp Pulse Resp BP Pulse Ox 97.7 F 79 17 117/66 99 06/03/16 11:17 06/03/16 11:17 06/03/16 11:17 06/03/16 11:17 06/03/16 11:17 Intake & Output 06/01/16 06/02/16 06/03/16 23:59 23:59 23:59 Intake Total 7800 1789 1610 Output Total 2110 2775 600 Balance 5690 -986 1010 Weight 69 kg 79.6 kg 78.6 kg General appearance: PRESENT: no acute distress, well-developed, well-nourished Head exam: PRESENT: atraumatic, normocephalic Eye exam: PRESENT: conjunctiva pink, EOMI, PERRLA. ABSENT: scleral icterus Ear exam: PRESENT: normal external ear exam Mouth exam: PRESENT: moist, tongue midline Neck exam: ABSENT: carotid bruit, JVD, lymphadenopathy, thyromegaly Respiratory exam: PRESENT: clear to auscultation luisa. ABSENT: rales, rhonchi, wheezes Cardiovascular exam: PRESENT: RRR. ABSENT: diastolic murmur, rubs, systolic murmur Pulses: PRESENT: normal dorsalis pedis pul Vascular exam: PRESENT: normal capillary refill GI/Abdominal exam: PRESENT: firm, normal bowel sounds, soft, tenderness, other - Ileostomy with green output. ABSENT: distended, guarding, mass, organolmegaly , rebound Rectal exam: PRESENT: deferred Extremities exam: PRESENT: full ROM. ABSENT: calf tenderness, clubbing, pedal edema Neurological exam: PRESENT: alert, awake, oriented to person, oriented to place , oriented to time, oriented to situation, CN II-XII grossly intact. ABSENT: motor sensory deficit Psychiatric exam: PRESENT: appropriate affect, normal mood. ABSENT: homicidal ideation, suicidal ideation Skin exam: PRESENT: dry, intact, warm. ABSENT: cyanosis, rash Results Laboratory Results: 06/02/16 05:30 06/02/16 05:30 Impressions: Abdomen/Pelvis CT 05/29/16 07:35 IMPRESSION: STABLE APPEARANCE OF THE ABDOMEN AND PELVIS. EXTENSIVE SURGICAL CHANGES. APPARENTLY LOCULATED FLUID COLLECTIONS INTERSPERSED AMONG THE BOWEL LOOPS HAVE A SIMILAR APPEARANCE TO THE PRIOR STUDIES. NO DEFINITE ACUTE FINDINGS. Chest X-Ray 05/29/16 10:32 IMPRESSION: STABLE MILD SCARRING IN THE RIGHT LUNG BASE. NO ACUTE RADIOGRAPHIC FINDING IN THE CHEST. Assessment & Plan - Diagnosis (1) Acute renal failure Qualifiers: Acute renal failure type: unspecified Qualified Code(s): N17.9 - Acute kidney failure, unspecified Is this a current diagnosis for this admission?: YesPlan: Will aggressively hydrate. Will obtain renal ultrasound. (2) UTI (urinary tract infection) Qualifiers: Urinary tract infection type: site unspecified Hematuria presence: with hematuria Qualified Code(s): N39.0 - Urinary tract infection, site not specified Is this a current diagnosis for this admission?: YesPlan: Continue Pyridium. In spite of findings on UA urine culture did not reveal any growth this may be skewed by the patient's outpatient antibiotic use. Will continue current antibiotic coverage.. (3) SIRS (systemic inflammatory response syndrome) Is this a current diagnosis for this admission?: YesPlan: Improved Selected Entries (4) Opiate dependence, continuous Is this a current diagnosis for this admission?: YesPlan: Resume home medications. (5) Anemia of chronic disease Is this a current diagnosis for this admission?: Yes (6) Ileostomy in place Is this a current diagnosis for this admission?: Yes (7) Nutrition Is this a current diagnosis for this admission?: Yes (8) Positive blood culture Is this a current diagnosis for this admission?: YesPlan: 1 blood cultures positive for gram-positive cocci. Possible contaminant. However given the patient's medical history will repeat blood cultures and follow. - Time Time Spent with patient: 25-34 minutes Medications reviewed and adjusted accordingly: Yes Anticipated discharge: Home Within: within 24 hours, within 48 hours Disposition: The patient is a full code. Pending patient's symptomatology and diagnostic findings will reevaluate in the a.m.
[2016-06-03 14:48] LABS: APPEARANCE,URINE SLIGHTLY-CLOUDY; BILIRUBIN,URINE NEGATIVE (NEGATIVE); GLUCOSE, URINE NEGATIVE (NEGATIVE); KETONES,URINE NEGATIVE (NEGATIVE); LEUKOCYTE ESTERASE,URINE SMALL (NEGATIVE); NITRITE,URINE NEGATIVE (NEGATIVE); PROTEIN,URINE 30 mg/dL (NEGATIVE); UROBILINOGEN,URINE NEGATIVE mg/dL (<2.0)
[2016-06-03] MEDS: ZOLPIDEM TARTRATE 5 MG TABLET PO PRN (21:33)
[2016-06-04] MEDS: ACETAMINOPHEN 325 MG TABLET PO PRN (00:33)
[2016-06-04] MEDS: HYDROMORPHONE HCL 2 MG TABLET PO PRN ×2 (00:33→17:43)
[2016-06-04 04:54] LABS: HEMATOCRIT 36.4 % (37.9-51.0); HEMOGLOBIN 11.4 g/dL (13.5-17.0); HGB HCT DIFFERENCE -2.2; MEAN CORPUSCULAR HEMOGLOBIN 23.8 pg (27.0-33.4); MEAN CORPUSCULAR HGB CONC 31.3 g/dL (32.0-36.0); MEAN CORPUSCULAR VOLUME 76 fl (80-97); RED BLOOD COUNT 4.78 10^6/uL (4.35-5.55); WHITE BLOOD COUNT 9.9 10^3/uL (4.0-10.5)
[2016-06-04 05:21] LABS: ANION GAP 11 (5-19); BLOOD UREA NITROGEN 13 mg/dL (7-20); CALCIUM 8.4 mg/dL (8.4-10.2); CARBON DIOXIDE 21 mmol/L (22-30); CHLORIDE 109 mmol/L (98-107); CREATININE RESULT 2.81 mg/dL (0.52-1.25); GLUCOSE 84 mg/dL (75-110); MAGNESIUM 1.7 mg/dL (1.6-2.3); POTASSIUM 4.5 mmol/L (3.6-5.0)
[2016-06-04] MEDS: HEPARIN SOD (PORCINE) 5,000 UNIT/ML 1 ML SYRINGE SUBCUT SCH ×3 (06:08→21:29)
[2016-06-04] MEDS: CEFUROXIME 500 MG TABLET PO SCH ×2 (10:15→21:27)
[2016-06-04] MEDS: ALPRAZOLAM 0.5 MG TABLET PO SCH ×2 (10:15→17:08)
[2016-06-04] MEDS ORDERED: HYDROMORPHONE HCL INJ/PF 2 MG/ML AMPULE SUBCUT ONE (11:00)
--- NOTE | 2016-06-04 17:07 | PDOC PROGRESS REPORT ---
Subjective Progress Note for:: 06/04/16 Subjective:: The patient was seen earlier today on rounds. The patient states that his bladder spasms have improved. The patient admits to abdominal pain. The patient states he tolerated breakfast however he had nausea and vomiting with dinner. The patient creatinine did rise significantly just overnight. The patient denies any excessive output from his ileostomy, shortness of breath, dizziness, chest pain, heart palpitations, fevers, or chills. The patient has remained afebrile. Blood pressures have been in a good range. When prompted the patient voices no other concerns at this time. Review of systems: The rest of the review of systems is negative. Physical Exam Vital Signs: Temp Pulse Resp BP Pulse Ox 99.6 F 75 17 126/77 H 98 06/04/16 15:28 06/04/16 15:28 06/04/16 15:28 06/04/16 15:28 06/04/16 15:28 Intake & Output 06/02/16 06/03/16 06/04/16 23:59 23:59 23:59 Intake Total 1789 3805 5095 Output Total 2775 1100 1800 Balance -986 2705 3295 Weight 79.6 kg 78.6 kg General appearance: PRESENT: no acute distress, well-developed, well-nourished Head exam: PRESENT: atraumatic, normocephalic Eye exam: PRESENT: conjunctiva pink, EOMI, PERRLA. ABSENT: scleral icterus Ear exam: PRESENT: normal external ear exam Mouth exam: PRESENT: moist, tongue midline Neck exam: ABSENT: carotid bruit, JVD, lymphadenopathy, thyromegaly Respiratory exam: PRESENT: clear to auscultation luisa. ABSENT: rales, rhonchi, wheezes Cardiovascular exam: PRESENT: RRR. ABSENT: diastolic murmur, rubs, systolic murmur Pulses: PRESENT: normal dorsalis pedis pul Vascular exam: PRESENT: normal capillary refill GI/Abdominal exam: PRESENT: firm, normal bowel sounds, soft, tenderness, other - Ileostomy with green output. ABSENT: distended, guarding, mass, organolmegaly , rebound Rectal exam: PRESENT: deferred Extremities exam: PRESENT: full ROM. ABSENT: calf tenderness, clubbing, pedal edema Neurological exam: PRESENT: alert, awake, oriented to person, oriented to place , oriented to time, oriented to situation, CN II-XII grossly intact. ABSENT: motor sensory deficit Psychiatric exam: PRESENT: appropriate affect, normal mood. ABSENT: homicidal ideation, suicidal ideation Skin exam: PRESENT: dry, intact, warm. ABSENT: cyanosis, rash Results Laboratory Results: 06/04/16 04:07 06/04/16 04:07 06/04/16 06/04/16 04:07 04:07 WBC 9.9 RBC 4.78 Hgb 11.4 L Hct 36.4 L MCV 76 L MCH 23.8 L MCHC 31.3 L RDW 17.0 H Plt Count 446 Sodium 141.0 Potassium 4.5 Chloride 109 H Carbon Dioxide 21 L Anion Gap 11 BUN 13 Creatinine 2.81 H Est GFR ( Amer) 30 L Est GFR (Non-Af Amer) 25 L Glucose 84 Calcium 8.4 Magnesium 1.7 05/30/16 14:45 Blood Blood Culture - Final NO GROWTH IN 5 DAYS 05/30/16 13:30 Blood Blood Culture - Final NO GROWTH IN 5 DAYS Impressions: Abdomen/Pelvis CT 05/29/16 07:35 IMPRESSION: STABLE APPEARANCE OF THE ABDOMEN AND PELVIS. EXTENSIVE SURGICAL CHANGES. APPARENTLY LOCULATED FLUID COLLECTIONS INTERSPERSED AMONG THE BOWEL LOOPS HAVE A SIMILAR APPEARANCE TO THE PRIOR STUDIES. NO DEFINITE ACUTE FINDINGS. Chest X-Ray 05/29/16 10:32 IMPRESSION: STABLE MILD SCARRING IN THE RIGHT LUNG BASE. NO ACUTE RADIOGRAPHIC FINDING IN THE CHEST. Renal Ultrasound 06/03/16 00:00 IMPRESSION: 1. Echogenic kidneys consistent with medical renal disease. 2. Free fluid surrounding the left kidney. Assessment & Plan - Diagnosis (1) Acute renal failure Qualifiers: Acute renal failure type: unspecified Qualified Code(s): N17.9 - Acute kidney failure, unspecified Is this a current diagnosis for this admission?: YesPlan: Will aggressively hydrate. Do appreciate nephrology input. (2) UTI (urinary tract infection) Qualifiers: Urinary tract infection type: site unspecified Hematuria presence: with hematuria Qualified Code(s): N39.0 - Urinary tract infection, site not specified Is this a current diagnosis for this admission?: YesPlan: Continue Pyridium. In spite of findings on UA urine culture did not reveal any growth this may be skewed by the patient's outpatient antibiotic use. Will continue current antibiotic coverage.. (3) SIRS (systemic inflammatory response syndrome) Is this a current diagnosis for this admission?: YesPlan: Improved Selected Entries (4) Opiate dependence, continuous Is this a current diagnosis for this admission?: YesPlan: Resume home medications. (5) Anemia of chronic disease Is this a current diagnosis for this admission?: Yes (6) Ileostomy in place Is this a current diagnosis for this admission?: Yes (7) Nutrition Is this a current diagnosis for this admission?: Yes (8) Positive blood culture Is this a current diagnosis for this admission?: YesPlan: 1 blood cultures positive for gram-positive cocci. Repeat blood culture was negative therefore felt this is contaminant.
--- NOTE | 2016-06-04 20:39 | PDOC CONSULTATION ---
Consultation Consult Date: 06/04/16 Attending physician:: MATHIEU DAY MD Consult reason:: I was asked by Dr. Day to see this patient because of acute renal failure. History of Present Illness Admission Date/PCP: 05/29/16 13:24 ANDREI WILLARD MD History of Present Illness: Patient is a 41-year-old -[place] gentleman with history of colon cancer with ileostomy who has been on chemotherapy for the last 11 years, hypertension, opiate dependence who was admitted on 05/29/2016 because of bladder pain. He was diagnosed with urinary tract infection with SIRS and was treated with antibiotics. He had CT scan of the abdomen with IV contrast on May 29 during admission. He did have some few episodes of relatively low blood pressure in the range of 94-99/56 on May 30 in June 02. He received vancomycin from May 30 of June 02. The last and only vancomycin trough level was on May 31 with 11.4. He received Toradol one dose on admission on May 29. In terms of his kidney function he was admitted with BUN of 7 creatinine of 0.82. His creatinine gina to 1.29 and May 31. On June 02 he had a BUN of 14 and creatinine of 3.26 and today had a BUN of 13 and creatinine of 2.81. He seems to be adequately hydrated at least from the intake and output record. Patient did confirm that he is making good amount of urine. He denies any high ileostomy output. His bladder spasm this improved. He has chronic abdominal pain. He has not had appetite since admission though. He tells me that he has had episodes of acute renal failure secondary to dehydration in the past. Currently he was switched to oral antibiotics. His renal ultrasound is fairly unremarkable except for possible evidence of medical renal disease. Past Medical History Cardiac Medical History: Reports: Hypertension-primary Malignancy Medical History: Reports: Colorectal Cancer - With ileostomy placement. GI Medical History: Reports: Other - Recurrent small bowel obstructions Psychiatric Medical History: Reports: Other - Opiate dependence Past Surgical History Past Surgical History: Reports: Appendectomy, Cholecystectomy, Ileostomy, Splenectomy - Partial Social History Lives with: Family Smoking Status: Never Smoker Frequency of Alcohol Use: Social Hx Recreational Drug Use: No Hx Prescription Drug Abuse: No - Advance Directive Resuscitation Status: Full Code Family History Family History: Reviewed & Not Pertinent Parental Family History Reviewed: Yes Children Family History Reviewed: Yes Sibling(s) Family History Reviewed.: Yes Medication/Allergy Home Medications: Alprazolam [Xanax 0.5 mg Tablet] 0.5 mg PO BID 05/29/16 Diphenoxylate HCl/Atropine [Lomotil 2.5-0.025 mg Tablet] 1 tab PO TIDP PRN 05/29 Hydromorphone HCl [Dilaudid] 8 mg PO Q4HP PRN 05/29/16 Ondansetron HCl [Zofran 8 mg Tablet] 8 mg PO Q8HP PRN 05/29/16 Promethazine HCl [Phenergan] 25 mg PO Q6 05/29/16 Zolpidem Tartrate [Ambien 5 mg Tablet] 5 mg PO HSP PRN 05/29/16 Allergies/Adverse Reactions: No Known Allergies Allergy (Verified 12/05/15 09:26) Review of Systems All systems: reviewed and no additional remarkable complaints except as stated Review of Systems: Constitutional: ABSENT: chills, fatigue, fever(s), headache(s), weight gain, weight loss Eyes: ABSENT: visual disturbances Ears: ABSENT: hearing changes Cardiovascular: ABSENT: chest pain, dyspnea on exertion, edema, orthropnea, palpitations Respiratory: ABSENT: cough, dyspnea, hemoptysis Gastrointestinal: ABSENT: constipation, diarrhea, hematemesis, hematochezia, nausea, vomiting; positive chronic abdominal pain Genitourinary: ABSENT: dysuria, hematuria; admits bladder spasm but improved from admission Musculoskeletal: ABSENT: joint swelling Integumentary: ABSENT: rash, wounds Neurological: ABSENT: abnormal gait, abnormal speech, confusion, dizziness, focal weakness, numbness, syncope Psychiatric: ABSENT: anxiety, depression Endocrine: ABSENT: cold intolerance, heat intolerance, polydipsia, polyuria Hematologic/Lymphatic: ABSENT: easy bleeding, easy bruising, lymphadenopathy Physical Exam Vital Signs: Temp Pulse Resp BP Pulse Ox 99.6 F 75 17 126/77 H 98 06/04/16 15:28 06/04/16 15:28 06/04/16 15:28 06/04/16 15:28 06/04/16 15:28 Intake & Output 06/03/16 06/04/16 06/05/16 06:59 06:59 06:59 Intake Total 2359 6030 3260 Output Total 1200 1100 1200 Balance 1159 4930 2060 Weight 78.6 kg Exam: General appearance: no acute distress, cooperative, well-developed, well- nourished Head exam: PRESENT: atraumatic, normocephalic Eye exam: PRESENT: Conjunctiva [place], EOMI, PERRLA. ABSENT: conjunctival injection, scleral icterus Mouth exam: PRESENT: moist, neck supple, tongue midline Neck exam: PRESENT: full ROM. ABSENT: carotid bruit, JVD, lymphadenopathy, thyromegaly Respiratory exam: PRESENT: clear to auscultation bilaterally. ABSENT: rales, rhonchi, stridor, wheezes Cardiovascular exam: PRESENT: RRR, +S1, +S2. ABSENT: systolic murmur Pulses: PRESENT: normal radial pulses, normal dorsalis pedis pulses GI/Abdominal exam: PRESENT: normal bowel sounds, soft. Mildly tender. Ileostomy in the right lower quadrant area ABSENT: guarding, mass Rectal exam: deferred Extremities exam: PRESENT: full ROM. ABSENT: calf tenderness, pedal edema Musculoskeletal: PRESENT: full ROM. ABSENT: deformity Neurological exam: PRESENT: alert, Awake, Oriented to person, Oriented to place , Oriented to time, reflexes normal, CN II-XII grossly intact. ABSENT: motor sensory deficit Psychiatric exam: PRESENT: appropriate affect, normal mood. ABSENT: homicidal ideation, suicidal ideation Skin exam: PRESENT: intact, dry, warm. ABSENT: rash Results Laboratory Results: 06/04/16 04:07 06/04/16 04:07 06/04/16 06/04/16 04:07 04:07 WBC 9.9 RBC 4.78 Hgb 11.4 L Hct 36.4 L MCV 76 L MCH 23.8 L MCHC 31.3 L RDW 17.0 H Plt Count 446 Sodium 141.0 Potassium 4.5 Chloride 109 H Carbon Dioxide 21 L Anion Gap 11 BUN 13 Creatinine 2.81 H Est GFR ( Amer) 30 L Est GFR (Non-Af Amer) 25 L Glucose 84 Calcium 8.4 Magnesium 1.7 05/30/16 14:45 Blood Blood Culture - Final NO GROWTH IN 5 DAYS 05/30/16 13:30 Blood Blood Culture - Final NO GROWTH IN 5 DAYS Impressions: Abdomen/Pelvis CT 05/29/16 07:35 IMPRESSION: STABLE APPEARANCE OF THE ABDOMEN AND PELVIS. EXTENSIVE SURGICAL CHANGES. APPARENTLY LOCULATED FLUID COLLECTIONS INTERSPERSED AMONG THE BOWEL LOOPS HAVE A SIMILAR APPEARANCE TO THE PRIOR STUDIES. NO DEFINITE ACUTE FINDINGS. Chest X-Ray 05/29/16 10:32 IMPRESSION: STABLE MILD SCARRING IN THE RIGHT LUNG BASE. NO ACUTE RADIOGRAPHIC FINDING IN THE CHEST. Renal Ultrasound 06/03/16 00:00 IMPRESSION: 1. Echogenic kidneys consistent with medical renal disease. 2. Free fluid surrounding the left kidney. Assessment & Plan - Diagnosis (1) Acute renal failure Qualifiers: Acute renal failure type: unspecified Qualified Code(s): N17.9 - Acute kidney failure, unspecified Is this a current diagnosis for this admission?: YesPlan: Cause of this could be multifactorial. Contributory factors include vancomycin although level was not toxic when checked, relative hypotension, infection, and IV contrast. Patient is not oliguric. Kidney function is actually improving compared to 2 days ago. Patient does not seem to be dehydrated. Renal ultrasound did not show any obstruction. Continue current management and monitor kidney function without further intervention at this point. No need of any renal replacement therapy. Avoid further nephrotoxic agents. (2) SIRS (systemic inflammatory response syndrome) Is this a current diagnosis for this admission?: Yes (3) UTI (urinary tract infection) Qualifiers: Urinary tract infection type: site unspecified Hematuria presence: with hematuria Qualified Code(s): N39.0 - Urinary tract infection, site not specified Is this a current diagnosis for this admission?: Yes (4) Anemia of chronic disease Is this a current diagnosis for this admission?: Yes - Notes Notes: Thank you very much for this consultation. I will follow the patient with you. - Time Time Spent: 50 to 70 Minutes
[2016-06-05] MEDS: HEPARIN SOD (PORCINE) 5,000 UNIT/ML 1 ML SYRINGE SUBCUT SCH ×3 (05:42→21:35)
[2016-06-05] MEDS: ALPRAZOLAM 0.5 MG TABLET PO SCH ×2 (09:37→17:19)
[2016-06-05] MEDS: CEFUROXIME 500 MG TABLET PO SCH ×2 (09:37→21:34)
[2016-06-05 13:26] LABS: ANION GAP 12 (5-19); BLOOD UREA NITROGEN 16 mg/dL (7-20); CALCIUM 8.8 mg/dL (8.4-10.2); CARBON DIOXIDE 21 mmol/L (22-30); CHLORIDE 110 mmol/L (98-107); CREATININE RESULT 2.85 mg/dL (0.52-1.25); GLUCOSE 90 mg/dL (75-110); POTASSIUM 5.1 mmol/L (3.6-5.0); SODIUM 142.6 mmol/L (137-145)
--- NOTE | 2016-06-05 13:55 | PDOC PROGRESS REPORT ---
Subjective Progress Note for:: 06/05/16 Subjective:: The patient was seen earlier today on rounds. The patient states that his bladder spasms have improved. The patient admits to abdominal pain. The patient states he tolerated breakfast however he had nausea and vomiting with dinner. The patient creatinine remained about the same overnight in spite of aggressive hydration. Do appreciate Dr. dyer with nephrology's input with this. The patient denies any excessive output from his ileostomy, shortness of breath, dizziness, chest pain, heart palpitations, fevers, or chills. The patient has remained afebrile. Blood pressures have been in a good range. The patient complains of breakthrough pain and specifically has asked for subcutaneous Dilaudid.. Review of systems: The rest of the review of systems is negative. Physical Exam Vital Signs: Temp Pulse Resp BP Pulse Ox 98.0 F 50 L 16 131/77 H 99 06/05/16 11:21 06/05/16 11:21 06/05/16 11:21 06/05/16 11:21 06/05/16 11:21 Intake & Output 06/03/16 06/04/16 06/05/16 23:59 23:59 23:59 Intake Total 3805 7095 720 Output Total 1100 1800 1120 Balance 2705 5295 -400 Weight 78.6 kg General appearance: PRESENT: no acute distress, well-developed, well-nourished Head exam: PRESENT: atraumatic, normocephalic Eye exam: PRESENT: conjunctiva pink, EOMI, PERRLA. ABSENT: scleral icterus Ear exam: PRESENT: normal external ear exam Mouth exam: PRESENT: moist, tongue midline Neck exam: ABSENT: carotid bruit, JVD, lymphadenopathy, thyromegaly Respiratory exam: PRESENT: clear to auscultation luisa, symmetrical, unlabored. ABSENT: rales, rhonchi, tachypnea, wheezes Cardiovascular exam: PRESENT: RRR. ABSENT: diastolic murmur, rubs, systolic murmur Pulses: PRESENT: normal dorsalis pedis pul Vascular exam: PRESENT: normal capillary refill GI/Abdominal exam: PRESENT: normal bowel sounds, soft. ABSENT: distended, guarding, mass, organolmegaly, rebound, tenderness Rectal exam: PRESENT: deferred Extremities exam: PRESENT: full ROM. ABSENT: calf tenderness, clubbing, pedal edema Neurological exam: PRESENT: alert, awake, oriented to person, oriented to place , oriented to time, oriented to situation, CN II-XII grossly intact. ABSENT: motor sensory deficit Psychiatric exam: PRESENT: appropriate affect, normal mood. ABSENT: homicidal ideation, suicidal ideation Skin exam: PRESENT: dry, intact, warm. ABSENT: cyanosis, rash Results Laboratory Results: 06/04/16 04:07 06/05/16 12:52 06/05/16 12:52 Sodium 142.6 Potassium 5.1 H Chloride 110 H Carbon Dioxide 21 L Anion Gap 12 BUN 16 Creatinine 2.85 H Est GFR ( Amer) 30 L Est GFR (Non-Af Amer) 24 L Glucose 90 Calcium 8.8 Impressions: Abdomen/Pelvis CT 05/29/16 07:35 IMPRESSION: STABLE APPEARANCE OF THE ABDOMEN AND PELVIS. EXTENSIVE SURGICAL CHANGES. APPARENTLY LOCULATED FLUID COLLECTIONS INTERSPERSED AMONG THE BOWEL LOOPS HAVE A SIMILAR APPEARANCE TO THE PRIOR STUDIES. NO DEFINITE ACUTE FINDINGS. Chest X-Ray 05/29/16 10:32 IMPRESSION: STABLE MILD SCARRING IN THE RIGHT LUNG BASE. NO ACUTE RADIOGRAPHIC FINDING IN THE CHEST. Renal Ultrasound 06/03/16 00:00 IMPRESSION: 1. Echogenic kidneys consistent with medical renal disease. 2. Free fluid surrounding the left kidney. Assessment & Plan - Diagnosis (1) Acute renal failure Qualifiers: Acute renal failure type: unspecified Qualified Code(s): N17.9 - Acute kidney failure, unspecified Is this a current diagnosis for this admission?: YesPlan: Will aggressively hydrate. Do appreciate nephrology input. (2) UTI (urinary tract infection) Qualifiers: Urinary tract infection type: site unspecified Hematuria presence: with hematuria Qualified Code(s): N39.0 - Urinary tract infection, site not specified Is this a current diagnosis for this admission?: YesPlan: Continue Pyridium. In spite of findings on UA urine culture did not reveal any growth this may be skewed by the patient's outpatient antibiotic use. Will continue current antibiotic coverage. (3) SIRS (systemic inflammatory response syndrome) Is this a current diagnosis for this admission?: YesPlan: Improved Selected Entries (4) Opiate dependence, continuous Is this a current diagnosis for this admission?: YesPlan: Resume home medications. (5) Anemia of chronic disease Is this a current diagnosis for this admission?: Yes (6) Ileostomy in place Is this a current diagnosis for this admission?: Yes (7) Nutrition Is this a current diagnosis for this admission?: Yes (8) Positive blood culture Is this a current diagnosis for this admission?: YesPlan: 1 blood cultures positive for gram-positive cocci. Repeat blood culture was negative therefore felt this is contaminant. - Time Time Spent with patient: 25-34 minutes Medications reviewed and adjusted accordingly: Yes Anticipated discharge: Home Within: within 24 hours, within 48 hours
[2016-06-05] MEDS: HYDROMORPHONE HCL INJ/PF 2 MG/ML AMPULE SUBCUT PRN ×2 (14:06→20:28)
[2016-06-05] MEDS: ACETAMINOPHEN 325 MG TABLET PO PRN (19:54)
[2016-06-05] MEDS ORDERED: FUROSEMIDE 40 MG TABLET PO ONE (20:12)
--- NOTE | 2016-06-05 20:17 | PDOC PROGRESS REPORT ---
Subjective Progress Note for:: 06/05/16 Subjective:: Patient feels nauseated tonight. He tells me that he drinks about 5 of those water jug that he has in the room daily. He also claims that he makes only about three fourths of the urine now for 24 hours which is around 600-700 mL of urine output only. He does empty his ileostomy bag 5 times half full most of the time. His intake and output shows that his positive fluid balance but this be not be accurate as this urine output does not seem to be all recorded as well as the ileostomy output because the patient is the one emptying them. Patient denies any other complaints. Physical Exam Vital Signs: Temp Pulse Resp BP Pulse Ox 97.7 F 55 L 18 137/76 H 100 06/05/16 15:11 06/05/16 15:11 06/05/16 15:11 06/05/16 15:11 06/05/16 15:11 Intake & Output 06/04/16 06/05/16 06/06/16 06:59 06:59 06:59 Intake Total 6030 3980 10 Output Total 1100 2320 Balance 4930 1660 10 Exam: General appearance: PRESENT: no acute distress, cooperative, well-developed, well-nourished Head exam: PRESENT: atraumatic, normocephalic Eye exam: PRESENT: conjunctiva pink, PERRLA. ABSENT: scleral icterus Neck exam: ABSENT: JVD Respiratory exam: PRESENT: Normal breath sounds. ABSENT: crackles, rales, rhonchi, unlabored, wheezes Cardiovascular exam: PRESENT: Regular rate rhythm -+S1, +S2. ABSENT: diastolic murmur, systolic murmur GI/Abdominal exam: PRESENT: normal bowel sounds, soft. Ileostomy in the right lower quadrant ABSENT: guarding, mass, tenderness Extremities exam: ABSENT: No edema Neurological exam: PRESENT: alert, awake, oriented to person, place and time. Skin exam: PRESENT: dry, warm, Results Laboratory Results: 06/04/16 04:07 06/05/16 12:52 06/05/16 12:52 Sodium 142.6 Potassium 5.1 H Chloride 110 H Carbon Dioxide 21 L Anion Gap 12 BUN 16 Creatinine 2.85 H Est GFR ( Amer) 30 L Est GFR (Non-Af Amer) 24 L Glucose 90 Calcium 8.8 Impressions: Abdomen/Pelvis CT 05/29/16 07:35 IMPRESSION: STABLE APPEARANCE OF THE ABDOMEN AND PELVIS. EXTENSIVE SURGICAL CHANGES. APPARENTLY LOCULATED FLUID COLLECTIONS INTERSPERSED AMONG THE BOWEL LOOPS HAVE A SIMILAR APPEARANCE TO THE PRIOR STUDIES. NO DEFINITE ACUTE FINDINGS. Chest X-Ray 05/29/16 10:32 IMPRESSION: STABLE MILD SCARRING IN THE RIGHT LUNG BASE. NO ACUTE RADIOGRAPHIC FINDING IN THE CHEST. Renal Ultrasound 06/03/16 00:00 IMPRESSION: 1. Echogenic kidneys consistent with medical renal disease. 2. Free fluid surrounding the left kidney. Assessment & Plan - Diagnosis (1) Acute renal failure Qualifiers: Acute renal failure type: unspecified Qualified Code(s): N17.9 - Acute kidney failure, unspecified Is this a current diagnosis for this admission?: YesPlan: Cause of this could be multifactorial. Contributory factors include vancomycin although level was not toxic when checked, relative hypotension, infection, and IV contrast. Patient is not oliguric. Kidney function is unchanged from yesterday. Patient does not seem to be dehydrated. He appears to be euvolemic. Renal ultrasound did not show any obstruction. I will give a trial of Lasix 40 mg 1 dose orally today and see if we can improve his urine output as well as kidney function. Continue current management and monitor kidney function without further intervention at this point. No need of any renal replacement therapy. Avoid further nephrotoxic agents. (2) SIRS (systemic inflammatory response syndrome) Is this a current diagnosis for this admission?: Yes (3) UTI (urinary tract infection) Qualifiers: Urinary tract infection type: site unspecified Hematuria presence: with hematuria Qualified Code(s): N39.0 - Urinary tract infection, site not specified Is this a current diagnosis for this admission?: Yes (4) Anemia of chronic disease Is this a current diagnosis for this admission?: Yes - Time Time with patient: 15-25 minutes
[2016-06-05] MEDS: ZOLPIDEM TARTRATE 5 MG TABLET PO PRN (21:34)
[2016-06-06] MEDS: HYDROMORPHONE HCL INJ/PF 2 MG/ML AMPULE SUBCUT PRN ×2 (04:15→19:52)
[2016-06-06 05:09] LABS: ANION GAP 15 (5-19); BLOOD UREA NITROGEN 17 mg/dL (7-20); CALCIUM 9.1 mg/dL (8.4-10.2); CARBON DIOXIDE 21 mmol/L (22-30); CHLORIDE 109 mmol/L (98-107); CREATININE RESULT 3.05 mg/dL (0.52-1.25); GLUCOSE 103 mg/dL (75-110); SODIUM 145.2 mmol/L (137-145)
[2016-06-06 05:15] LABS: POTASSIUM 3.8 mmol/L (3.6-5.0)
[2016-06-06] MEDS: HEPARIN SOD (PORCINE) 5,000 UNIT/ML 1 ML SYRINGE SUBCUT SCH ×3 (06:10→21:21)
[2016-06-06] MEDS ORDERED: NORMAL SALINE 1000 ML 1,000 ML IV PRN (09:37)
--- NOTE | 2016-06-06 14:55 | PDOC PROGRESS REPORT ---
Subjective Progress Note for:: 06/06/16 Subjective:: Patient was given IV fluid bolus this morning and is now currently being given 0.9 normal saline at 250 mL an hour. Apparently the patient's IV was not working properly yesterday and so he was not given much of on IV fluids although the patient claims that he is drinking 5 jogs of water. His intake and output does not reflect that however. He also didn't make much urine yesterday. Currently he is making better urine output with IV fluids. Patient desperately wants to go home. Physical Exam Vital Signs: Temp Pulse Resp BP Pulse Ox 98.3 F 56 L 20 123/83 100 06/06/16 11:13 06/06/16 11:13 06/06/16 11:13 06/06/16 11:13 06/06/16 11:13 Intake & Output 06/05/16 06/06/16 06/07/16 06:59 06:59 06:59 Intake Total 3980 1020 Output Total 2320 1400 Balance 1660 -380 Exam: General appearance: PRESENT: no acute distress, cooperative, well-developed, well-nourished Head exam: PRESENT: atraumatic, normocephalic Eye exam: PRESENT: conjunctiva pink, PERRLA. ABSENT: scleral icterus Neck exam: ABSENT: JVD Respiratory exam: PRESENT: Normal breath sounds. ABSENT: crackles, rales, rhonchi, unlabored, wheezes Cardiovascular exam: PRESENT: Regular rate rhythm -+S1, +S2. ABSENT: diastolic murmur, systolic murmur GI/Abdominal exam: PRESENT: normal bowel sounds, soft. Ileostomy in the right lower quadrant. ABSENT: guarding, mass, tenderness Extremities exam: ABSENT: No edema Neurological exam: PRESENT: alert, awake, oriented to person, place and time. Skin exam: PRESENT: dry, warm, Results Laboratory Results: 06/04/16 04:07 06/06/16 04:13 06/06/16 04:13 Sodium 145.2 H Potassium 3.8 D Chloride 109 H Carbon Dioxide 21 L Anion Gap 15 BUN 17 Creatinine 3.05 H Est GFR ( Amer) 27 L Est GFR (Non-Af Amer) 23 L Glucose 103 Calcium 9.1 Impressions: Abdomen/Pelvis CT 05/29/16 07:35 IMPRESSION: STABLE APPEARANCE OF THE ABDOMEN AND PELVIS. EXTENSIVE SURGICAL CHANGES. APPARENTLY LOCULATED FLUID COLLECTIONS INTERSPERSED AMONG THE BOWEL LOOPS HAVE A SIMILAR APPEARANCE TO THE PRIOR STUDIES. NO DEFINITE ACUTE FINDINGS. Chest X-Ray 05/29/16 10:32 IMPRESSION: STABLE MILD SCARRING IN THE RIGHT LUNG BASE. NO ACUTE RADIOGRAPHIC FINDING IN THE CHEST. Renal Ultrasound 06/03/16 00:00 IMPRESSION: 1. Echogenic kidneys consistent with medical renal disease. 2. Free fluid surrounding the left kidney. Assessment & Plan - Diagnosis (1) Acute renal failure Qualifiers: Acute renal failure type: unspecified Qualified Code(s): N17.9 - Acute kidney failure, unspecified Is this a current diagnosis for this admission?: YesPlan: Cause of this could be multifactorial. Contributory factors include vancomycin although level was not toxic when checked, relative hypotension, infection, and IV contrast. Patient is not oliguric. Kidney function is slightly worse from yesterday. Renal ultrasound did not show any obstruction. Continue current IV fluids being given with the same rate. Monitor intake and output more accurately. No diuretics for now. No need of any renal replacement therapy. Avoid further nephrotoxic agents. (2) SIRS (systemic inflammatory response syndrome) Is this a current diagnosis for this admission?: Yes (3) UTI (urinary tract infection) Qualifiers: Urinary tract infection type: site unspecified Hematuria presence: with hematuria Qualified Code(s): N39.0 - Urinary tract infection, site not specified Is this a current diagnosis for this admission?: Yes (4) Anemia of chronic disease Is this a current diagnosis for this admission?: Yes - Time Time with patient: 15-25 minutes
--- NOTE | 2016-06-06 15:20 | PDOC PROGRESS REPORT ---
Subjective Progress Note for:: 06/06/16 Subjective:: The patient was seen earlier today on rounds. The patient states that his bladder spasms have improved. The patient admits to abdominal pain. The patient states he tolerated breakfast however he had nausea and vomiting with dinner. The patient creatinine remained about the same overnight in spite of aggressive hydration. Do appreciate Dr. Weaver's with nephrology's input with this. The patient denies any excessive output from his ileostomy, shortness of breath, dizziness, chest pain, heart palpitations, fevers, or chills. The patient has remained afebrile. Blood pressures have been in a good range. Breakthrough pain has improved with Dilaudid. Review of systems: The rest of the review of systems is negative. Physical Exam Vital Signs: Temp Pulse Resp BP Pulse Ox 98.3 F 56 L 20 123/83 100 06/06/16 11:13 06/06/16 11:13 06/06/16 11:13 06/06/16 11:13 06/06/16 11:13 Intake & Output 06/04/16 06/05/16 06/06/16 23:59 23:59 23:59 Intake Total 7095 730 1010 Output Total 1800 1120 1400 Balance 5295 -390 -390 General appearance: PRESENT: no acute distress, well-developed, well-nourished Head exam: PRESENT: atraumatic, normocephalic Eye exam: PRESENT: conjunctiva pink, EOMI, PERRLA. ABSENT: scleral icterus Ear exam: PRESENT: normal external ear exam Mouth exam: PRESENT: moist, tongue midline Neck exam: ABSENT: carotid bruit, JVD, lymphadenopathy, thyromegaly Respiratory exam: PRESENT: clear to auscultation luisa, symmetrical, unlabored. ABSENT: rales, rhonchi, tachypnea, wheezes Cardiovascular exam: PRESENT: RRR. ABSENT: diastolic murmur, rubs, systolic murmur Pulses: PRESENT: normal dorsalis pedis pul Vascular exam: PRESENT: normal capillary refill GI/Abdominal exam: PRESENT: normal bowel sounds, soft. ABSENT: distended, guarding, mass, organolmegaly, rebound, tenderness Rectal exam: PRESENT: deferred Extremities exam: PRESENT: full ROM. ABSENT: calf tenderness, clubbing, pedal edema Neurological exam: PRESENT: alert, awake, oriented to person, oriented to place , oriented to time, oriented to situation, CN II-XII grossly intact. ABSENT: motor sensory deficit Psychiatric exam: PRESENT: appropriate affect, normal mood. ABSENT: homicidal ideation, suicidal ideation Skin exam: PRESENT: dry, intact, warm. ABSENT: cyanosis, rash Results Laboratory Results: 06/04/16 04:07 06/06/16 04:13 06/06/16 04:13 Sodium 145.2 H Potassium 3.8 D Chloride 109 H Carbon Dioxide 21 L Anion Gap 15 BUN 17 Creatinine 3.05 H Est GFR ( Amer) 27 L Est GFR (Non-Af Amer) 23 L Glucose 103 Calcium 9.1 Impressions: Abdomen/Pelvis CT 05/29/16 07:35 IMPRESSION: STABLE APPEARANCE OF THE ABDOMEN AND PELVIS. EXTENSIVE SURGICAL CHANGES. APPARENTLY LOCULATED FLUID COLLECTIONS INTERSPERSED AMONG THE BOWEL LOOPS HAVE A SIMILAR APPEARANCE TO THE PRIOR STUDIES. NO DEFINITE ACUTE FINDINGS. Chest X-Ray 05/29/16 10:32 IMPRESSION: STABLE MILD SCARRING IN THE RIGHT LUNG BASE. NO ACUTE RADIOGRAPHIC FINDING IN THE CHEST. Renal Ultrasound 06/03/16 00:00 IMPRESSION: 1. Echogenic kidneys consistent with medical renal disease. 2. Free fluid surrounding the left kidney. Assessment & Plan - Diagnosis (1) Acute renal failure Qualifiers: Acute renal failure type: unspecified Qualified Code(s): N17.9 - Acute kidney failure, unspecified Is this a current diagnosis for this admission?: YesPlan: Will aggressively hydrate. Do appreciate nephrology input. (2) UTI (urinary tract infection) Qualifiers: Urinary tract infection type: site unspecified Hematuria presence: with hematuria Qualified Code(s): N39.0 - Urinary tract infection, site not specified Is this a current diagnosis for this admission?: YesPlan: Continue Pyridium. In spite of findings on UA urine culture did not reveal any growth this may be skewed by the patient's outpatient antibiotic use. Will continue current antibiotic coverage. (3) SIRS (systemic inflammatory response syndrome) Is this a current diagnosis for this admission?: YesPlan: Improved Selected Entries (4) Opiate dependence, continuous Is this a current diagnosis for this admission?: YesPlan: Resume home medications. (5) Anemia of chronic disease Is this a current diagnosis for this admission?: Yes (6) Ileostomy in place Is this a current diagnosis for this admission?: Yes (7) Nutrition Is this a current diagnosis for this admission?: Yes (8) Positive blood culture Is this a current diagnosis for this admission?: YesPlan: 1 blood cultures positive for gram-positive cocci. Repeat blood culture was negative therefore felt this is contaminant. - Time Time Spent with patient: 25-34 minutes Medications reviewed and adjusted accordingly: Yes Anticipated discharge: Home Within: within 24 hours, within 48 hours
[2016-06-06] MEDS: NORMAL SALINE 1000 ML 1,000 ML IV PRN (15:24)
[2016-06-06 21:19] LABS: APPEARANCE,URINE CLEAR; BILIRUBIN,URINE NEGATIVE (NEGATIVE); GLUCOSE, URINE NEGATIVE (NEGATIVE); KETONES,URINE NEGATIVE (NEGATIVE); LEUKOCYTE ESTERASE,URINE SMALL (NEGATIVE); NITRITE,URINE NEGATIVE (NEGATIVE); PROTEIN,URINE NEGATIVE (NEGATIVE); URINE SPECIFIC GRAVITY 1.006; UROBILINOGEN,URINE NEGATIVE mg/dL (<2.0)
[2016-06-07] MEDS: HYDROMORPHONE HCL INJ/PF 2 MG/ML AMPULE SUBCUT PRN ×4 (01:29→20:20)
[2016-06-07 05:22] LABS: HEMATOCRIT 35.3 % (37.9-51.0); HEMOGLOBIN 11.2 g/dL (13.5-17.0); HGB HCT DIFFERENCE -1.7; MEAN CORPUSCULAR HGB CONC 31.7 g/dL (32.0-36.0); MEAN CORPUSCULAR VOLUME 76 fl (80-97); RED BLOOD COUNT 4.65 10^6/uL (4.35-5.55); WHITE BLOOD COUNT 9.3 10^3/uL (4.0-10.5)
[2016-06-07] MEDS: HEPARIN SOD (PORCINE) 5,000 UNIT/ML 1 ML SYRINGE SUBCUT SCH ×3 (05:22→21:53)
[2016-06-07 05:28] LABS: ANION GAP 12 (5-19); BLOOD UREA NITROGEN 18 mg/dL (7-20); CALCIUM 8.2 mg/dL (8.4-10.2); CARBON DIOXIDE 19 mmol/L (22-30); CHLORIDE 113 mmol/L (98-107); CREATININE RESULT 2.69 mg/dL (0.52-1.25); GLUCOSE 85 mg/dL (75-110); MAGNESIUM 1.4 mg/dL (1.6-2.3); SODIUM 143.8 mmol/L (137-145)
--- NOTE | 2016-06-07 08:47 | PDOC PROGRESS REPORT ---
Subjective Progress Note for:: 06/07/16 Subjective:: The patient was seen earlier today on rounds. The patient states that his bladder spasms have resolved. The patient admits to abdominal pain. The patient states he tolerated his meals. The patient creatinine improved overnight with hydration. Do appreciate Dr. Weaver's with nephrology's input with this. The patient denies any excessive output from his ileostomy, shortness of breath, dizziness, chest pain, heart palpitations, fevers, or chills. The patient has remained afebrile. Blood pressures have been in a good range. Breakthrough pain has improved with Dilaudid. Review of systems: The rest of the review of systems is negative. Physical Exam Vital Signs: Temp Pulse Resp BP Pulse Ox 98.8 F 56 L 17 115/64 99 06/07/16 04:22 06/07/16 07:00 06/07/16 04:22 06/07/16 04:22 06/07/16 04:22 Intake & Output 06/05/16 06/06/16 06/07/16 23:59 23:59 23:59 Intake Total 730 3550 3750 Output Total 1120 2640 2340 Balance -401 749 9220 General appearance: PRESENT: no acute distress, well-developed, well-nourished Head exam: PRESENT: atraumatic, normocephalic Eye exam: PRESENT: conjunctiva pink, EOMI, PERRLA. ABSENT: scleral icterus Ear exam: PRESENT: normal external ear exam Mouth exam: PRESENT: moist, tongue midline Neck exam: ABSENT: carotid bruit, JVD, lymphadenopathy, thyromegaly Respiratory exam: PRESENT: clear to auscultation luisa, symmetrical, unlabored. ABSENT: rales, rhonchi, tachypnea, wheezes Cardiovascular exam: PRESENT: RRR. ABSENT: diastolic murmur, rubs, systolic murmur Pulses: PRESENT: normal dorsalis pedis pul Vascular exam: PRESENT: normal capillary refill GI/Abdominal exam: PRESENT: normal bowel sounds, soft. ABSENT: distended, guarding, mass, organolmegaly, rebound, tenderness Rectal exam: PRESENT: deferred Extremities exam: PRESENT: full ROM. ABSENT: calf tenderness, clubbing, pedal edema Neurological exam: PRESENT: alert, awake, oriented to person, oriented to place , oriented to time, oriented to situation, CN II-XII grossly intact. ABSENT: motor sensory deficit Psychiatric exam: PRESENT: appropriate affect, normal mood. ABSENT: homicidal ideation, suicidal ideation Skin exam: PRESENT: dry, intact, warm. ABSENT: cyanosis, rash Results Laboratory Results: 06/07/16 04:36 06/07/16 04:36 06/06/16 06/07/16 06/07/16 20:47 04:36 04:36 WBC 9.3 RBC 4.65 Hgb 11.2 L Hct 35.3 L MCV 76 L MCH 24.0 L MCHC 31.7 L RDW 17.0 H Plt Count 460 H Sodium 143.8 Potassium 5.0 Chloride 113 H Carbon Dioxide 19 L Anion Gap 12 BUN 18 Creatinine 2.69 H Est GFR ( Amer) 32 L Est GFR (Non-Af Amer) 26 L Glucose 85 Calcium 8.2 L Magnesium 1.4 L Urine Color YELLOW Urine Appearance CLEAR Urine pH 5.0 Ur Specific [place] 1.006 Urine Protein NEGATIVE Urine Glucose (UA) NEGATIVE Urine Ketones NEGATIVE Urine Blood NEGATIVE Urine Nitrite NEGATIVE Ur Leukocyte Esterase SMALL H Urine WBC (Auto) 10 Urine RBC (Auto) 0 Impressions: Abdomen/Pelvis CT 05/29/16 07:35 IMPRESSION: STABLE APPEARANCE OF THE ABDOMEN AND PELVIS. EXTENSIVE SURGICAL CHANGES. APPARENTLY LOCULATED FLUID COLLECTIONS INTERSPERSED AMONG THE BOWEL LOOPS HAVE A SIMILAR APPEARANCE TO THE PRIOR STUDIES. NO DEFINITE ACUTE FINDINGS. Chest X-Ray 05/29/16 10:32 IMPRESSION: STABLE MILD SCARRING IN THE RIGHT LUNG BASE. NO ACUTE RADIOGRAPHIC FINDING IN THE CHEST. Renal Ultrasound 06/03/16 00:00 IMPRESSION: 1. Echogenic kidneys consistent with medical renal disease. 2. Free fluid surrounding the left kidney. Assessment & Plan - Diagnosis (1) Acute renal failure Qualifiers: Acute renal failure type: unspecified Qualified Code(s): N17.9 - Acute kidney failure, unspecified Is this a current diagnosis for this admission?: YesPlan: Will aggressively hydrate. Do appreciate nephrology input. (2) UTI (urinary tract infection) Qualifiers: Urinary tract infection type: site unspecified Hematuria presence: with hematuria Qualified Code(s): N39.0 - Urinary tract infection, site not specified Is this a current diagnosis for this admission?: YesPlan: Continue Pyridium PRN. In spite of findings on UA urine culture did not reveal any growth this may be skewed by the patient's outpatient antibiotic use. Will continue current antibiotic coverage. (3) SIRS (systemic inflammatory response syndrome) Is this a current diagnosis for this admission?: YesPlan: Improved Selected Entries (4) Opiate dependence, continuous Is this a current diagnosis for this admission?: YesPlan: Resume home medications. (5) Anemia of chronic disease Is this a current diagnosis for this admission?: Yes (6) Ileostomy in place Is this a current diagnosis for this admission?: Yes (7) Nutrition Is this a current diagnosis for this admission?: Yes (8) Positive blood culture Is this a current diagnosis for this admission?: Yes - Time Time Spent with patient: 25-34 minutes Medications reviewed and adjusted accordingly: Yes Anticipated discharge: Home Within: within 24 hours, within 48 hours
[2016-06-07] MEDS: NORMAL SALINE 1000 ML 1,000 ML IV PRN (10:17)
[2016-06-07] MEDS: MAGNESIUM SULFATE/D5W 1 GM/100 ML RTUPB IV SCH ×2 (10:17→11:47)
--- NOTE | 2016-06-07 15:11 | PDOC PROGRESS REPORT ---
Subjective Progress Note for:: 06/07/16 Subjective:: Patient is clinically stable. His kidney function is better with initiation of IV fluids. He doesn't have any other new complaints. Physical Exam Vital Signs: Temp Pulse Resp BP Pulse Ox 98.4 F 56 L 20 123/74 98 06/07/16 08:07 06/07/16 14:00 06/07/16 08:07 06/07/16 08:07 06/07/16 08:07 Intake & Output 06/06/16 06/07/16 06/08/16 06:59 06:59 06:59 Intake Total 1020 6290 Output Total 1400 3580 Balance -380 2710 Exam: General appearance: PRESENT: no acute distress, cooperative, well-developed, well-nourished Head exam: PRESENT: atraumatic, normocephalic Eye exam: PRESENT: conjunctiva pink, PERRLA. ABSENT: scleral icterus Neck exam: ABSENT: JVD Respiratory exam: PRESENT: Normal breath sounds. ABSENT: crackles, rales, rhonchi, unlabored, wheezes Cardiovascular exam: PRESENT: Regular rate rhythm -+S1, +S2. ABSENT: diastolic murmur, systolic murmur GI/Abdominal exam: PRESENT: normal bowel sounds, soft. Mild tenderness in the lower abdomen. Ileostomy bag in place in the right lower quadrant. ABSENT: guarding, mass Extremities exam: ABSENT: No edema Neurological exam: PRESENT: alert, awake, oriented to person, place and time. Skin exam: PRESENT: dry, warm, Results Laboratory Results: 06/07/16 04:36 06/07/16 04:36 06/06/16 06/07/16 06/07/16 20:47 04:36 04:36 WBC 9.3 RBC 4.65 Hgb 11.2 L Hct 35.3 L MCV 76 L MCH 24.0 L MCHC 31.7 L RDW 17.0 H Plt Count 460 H Sodium 143.8 Potassium 5.0 Chloride 113 H Carbon Dioxide 19 L Anion Gap 12 BUN 18 Creatinine 2.69 H Est GFR ( Amer) 32 L Est GFR (Non-Af Amer) 26 L Glucose 85 Calcium 8.2 L Magnesium 1.4 L Urine Color YELLOW Urine Appearance CLEAR Urine pH 5.0 Ur Specific [place] 1.006 Urine Protein NEGATIVE Urine Glucose (UA) NEGATIVE Urine Ketones NEGATIVE Urine Blood NEGATIVE Urine Nitrite NEGATIVE Ur Leukocyte Esterase SMALL H Urine WBC (Auto) 10 Urine RBC (Auto) 0 Impressions: Abdomen/Pelvis CT 05/29/16 07:35 IMPRESSION: STABLE APPEARANCE OF THE ABDOMEN AND PELVIS. EXTENSIVE SURGICAL CHANGES. APPARENTLY LOCULATED FLUID COLLECTIONS INTERSPERSED AMONG THE BOWEL LOOPS HAVE A SIMILAR APPEARANCE TO THE PRIOR STUDIES. NO DEFINITE ACUTE FINDINGS. Chest X-Ray 05/29/16 10:32 IMPRESSION: STABLE MILD SCARRING IN THE RIGHT LUNG BASE. NO ACUTE RADIOGRAPHIC FINDING IN THE CHEST. Renal Ultrasound 06/03/16 00:00 IMPRESSION: 1. Echogenic kidneys consistent with medical renal disease. 2. Free fluid surrounding the left kidney. Assessment & Plan - Diagnosis (1) Acute renal failure Qualifiers: Acute renal failure type: unspecified Qualified Code(s): N17.9 - Acute kidney failure, unspecified Is this a current diagnosis for this admission?: YesPlan: Cause of this could be multifactorial. Contributory factors include vancomycin although level was not toxic when checked, relative hypotension, infection, and IV contrast. Patient is not oliguric. Kidney function is slowly getting better. Renal ultrasound did not show any obstruction. Continue current IV fluids being given with the same rate but will change 2.5 normal saline due to hyperchloremia. Monitor intake and output more accurately. No diuretics for now. No need of any renal replacement therapy. Avoid further nephrotoxic agents. Due to the patient's ileostomy output I think the patient really needs a lot of fluid to replace it if his cannot go home from here. (2) SIRS (systemic inflammatory response syndrome) Is this a current diagnosis for this admission?: Yes (3) UTI (urinary tract infection) Qualifiers: Urinary tract infection type: site unspecified Hematuria presence: with hematuria Qualified Code(s): N39.0 - Urinary tract infection, site not specified Is this a current diagnosis for this admission?: Yes (4) Anemia of chronic disease Is this a current diagnosis for this admission?: Yes - Time Time with patient: 15-25 minutes
[2016-06-07] MEDS: 1/2 NORMAL SALINE 1,000 ML IV PRN (17:35)
[2016-06-08] MEDS: HYDROMORPHONE HCL INJ/PF 2 MG/ML AMPULE SUBCUT PRN ×4 (02:30→21:44)
[2016-06-08] MEDS: HEPARIN SOD (PORCINE) 5,000 UNIT/ML 1 ML SYRINGE SUBCUT SCH ×3 (05:46→21:44)
[2016-06-08 06:25] LABS: ANION GAP 10 (5-19); BLOOD UREA NITROGEN 17 mg/dL (7-20); CALCIUM 8.3 mg/dL (8.4-10.2); CARBON DIOXIDE 18 mmol/L (22-30); CHLORIDE 114 mmol/L (98-107); CREATININE RESULT 2.63 mg/dL (0.52-1.25); GLUCOSE 76 mg/dL (75-110); MAGNESIUM 1.7 mg/dL (1.6-2.3); POTASSIUM 5.5 mmol/L (3.6-5.0); SODIUM 142.4 mmol/L (137-145)
--- NOTE | 2016-06-08 09:23 | PDOC PROGRESS REPORT ---
Subjective Progress Note for:: 06/08/16 Subjective:: The patient was seen earlier today on rounds. The patient admits to abdominal pain. I found a bottle of ibuprofen at the bedside. Patient admitted to taking "3-4". I explained the nephrotoxic repercussion and the patient has agreed to not take anymore. The patient states he tolerated his meals. The patient creatinine stayed the same overnight with hydration. Do appreciate Dr. Weaver's with nephrology's input with this. The patient denies any, shortness of breath, dizziness, chest pain, heart palpitations, fevers, or chills. The patient has remained afebrile. Blood pressures have been in a good range. Breakthrough pain has improved with Dilaudid. Review of systems: The rest of the review of systems is negative. Physical Exam Vital Signs: Temp Pulse Resp BP Pulse Ox 98.5 F 52 L 18 143/81 H 100 06/08/16 07:33 06/08/16 07:33 06/08/16 07:33 06/08/16 07:33 06/08/16 07:33 Intake & Output 06/06/16 06/07/16 06/08/16 23:59 23:59 23:59 Intake Total 3550 5541 3200 Output Total 2640 2340 2000 Balance 910 3201 1200 General appearance: PRESENT: no acute distress, well-developed, well-nourished Head exam: PRESENT: atraumatic, normocephalic Eye exam: PRESENT: conjunctiva pink, EOMI, PERRLA. ABSENT: scleral icterus Ear exam: PRESENT: normal external ear exam Mouth exam: PRESENT: moist, tongue midline Neck exam: ABSENT: carotid bruit, JVD, lymphadenopathy, thyromegaly Respiratory exam: PRESENT: clear to auscultation luisa, symmetrical, unlabored. ABSENT: rales, rhonchi, tachypnea, wheezes Cardiovascular exam: PRESENT: RRR. ABSENT: diastolic murmur, rubs, systolic murmur Pulses: PRESENT: normal dorsalis pedis pul Vascular exam: PRESENT: normal capillary refill GI/Abdominal exam: PRESENT: normal bowel sounds, soft. ABSENT: distended, guarding, mass, organolmegaly, rebound, tenderness Rectal exam: PRESENT: deferred Extremities exam: PRESENT: full ROM. ABSENT: calf tenderness, clubbing, pedal edema Neurological exam: PRESENT: alert, awake, oriented to person, oriented to place , oriented to time, oriented to situation, CN II-XII grossly intact. ABSENT: motor sensory deficit Psychiatric exam: PRESENT: appropriate affect, normal mood. ABSENT: homicidal ideation, suicidal ideation Skin exam: PRESENT: dry, intact, warm. ABSENT: cyanosis, rash Results Laboratory Results: 06/07/16 04:36 06/08/16 05:03 06/08/16 05:03 Sodium 142.4 Potassium 5.5 H Chloride 114 H Carbon Dioxide 18 L Anion Gap 10 BUN 17 Creatinine 2.63 H Est GFR ( Amer) 32 L Est GFR (Non-Af Amer) 27 L Glucose 76 Calcium 8.3 L Magnesium 1.7 Impressions: Abdomen/Pelvis CT 05/29/16 07:35 IMPRESSION: STABLE APPEARANCE OF THE ABDOMEN AND PELVIS. EXTENSIVE SURGICAL CHANGES. APPARENTLY LOCULATED FLUID COLLECTIONS INTERSPERSED AMONG THE BOWEL LOOPS HAVE A SIMILAR APPEARANCE TO THE PRIOR STUDIES. NO DEFINITE ACUTE FINDINGS. Chest X-Ray 05/29/16 10:32 IMPRESSION: STABLE MILD SCARRING IN THE RIGHT LUNG BASE. NO ACUTE RADIOGRAPHIC FINDING IN THE CHEST. Renal Ultrasound 06/03/16 00:00 IMPRESSION: 1. Echogenic kidneys consistent with medical renal disease. 2. Free fluid surrounding the left kidney. Assessment & Plan - Diagnosis (1) Acute renal failure Qualifiers: Acute renal failure type: unspecified Qualified Code(s): N17.9 - Acute kidney failure, unspecified Is this a current diagnosis for this admission?: YesPlan: Will aggressively hydrate. Do appreciate nephrology input. Instructed patient to stop taking any medications not given to him by nursing, especially NSAIDS. (2) UTI (urinary tract infection) Qualifiers: Urinary tract infection type: site unspecified Hematuria presence: with hematuria Qualified Code(s): N39.0 - Urinary tract infection, site not specified Is this a current diagnosis for this admission?: YesPlan: Continue Pyridium PRN. In spite of findings on UA urine culture did not reveal any growth this may be skewed by the patient's outpatient antibiotic use. This is day 10. Discontinue antibiotics. (3) SIRS (systemic inflammatory response syndrome) Is this a current diagnosis for this admission?: YesPlan: Improved Selected Entries (4) Opiate dependence, continuous Is this a current diagnosis for this admission?: YesPlan: Resume home medications. (5) Anemia of chronic disease Is this a current diagnosis for this admission?: Yes (6) Ileostomy in place Is this a current diagnosis for this admission?: YesPlan: Will add Questran to slow output. (7) Nutrition Is this a current diagnosis for this admission?: Yes (8) Positive blood culture Is this a current diagnosis for this admission?: Yes - Time Time Spent with patient: 25-34 minutes Medications reviewed and adjusted accordingly: Yes Anticipated discharge: Home Within: within 24 hours, within 48 hours
[2016-06-08] MEDS: CHOLESTYRAMINE/ASPARTAME 4 GM PACKET PO SCH ×4 (10:19→21:44)
[2016-06-08] MEDS: 1/2 NORMAL SALINE 1,000 ML IV PRN ×3 (11:04→21:56)
--- NOTE | 2016-06-08 17:34 | PDOC PROGRESS REPORT ---
Subjective Progress Note for:: 06/08/16 Subjective:: Patient does not have any new complaints except for his abdominal pain. He was found to be taking Advil PM and he admits taking 3 tablets a day for the last couple of nights. Physical Exam Vital Signs: Temp Pulse Resp BP Pulse Ox 97.6 F 59 L 18 133/81 H 100 06/08/16 11:21 06/08/16 14:00 06/08/16 11:21 06/08/16 11:21 06/08/16 11:21 Intake & Output 06/07/16 06/08/16 06/09/16 06:59 06:59 06:59 Intake Total 6290 4991 950 Output Total 3580 2000 600 Balance 2710 2991 350 Exam: General appearance: PRESENT: no acute distress, cooperative, well-developed, well-nourished Head exam: PRESENT: atraumatic, normocephalic Eye exam: PRESENT: conjunctiva pink, PERRLA. ABSENT: scleral icterus Neck exam: ABSENT: JVD Respiratory exam: PRESENT: Normal breath sounds. ABSENT: crackles, rales, rhonchi, unlabored, wheezes Cardiovascular exam: PRESENT: Regular rate rhythm -+S1, +S2. ABSENT: diastolic murmur, systolic murmur GI/Abdominal exam: PRESENT: normal bowel sounds, soft. Mild tenderness, ileostomy bag in the right lower quadrant area ABSENT: guarding, mass Extremities exam: ABSENT: No edema Neurological exam: PRESENT: alert, awake, oriented to person, place and time. Skin exam: PRESENT: dry, warm, Results Laboratory Results: 06/07/16 04:36 06/08/16 05:03 06/08/16 05:03 Sodium 142.4 Potassium 5.5 H Chloride 114 H Carbon Dioxide 18 L Anion Gap 10 BUN 17 Creatinine 2.63 H Est GFR ( Amer) 32 L Est GFR (Non-Af Amer) 27 L Glucose 76 Calcium 8.3 L Magnesium 1.7 Impressions: Abdomen/Pelvis CT 05/29/16 07:35 IMPRESSION: STABLE APPEARANCE OF THE ABDOMEN AND PELVIS. EXTENSIVE SURGICAL CHANGES. APPARENTLY LOCULATED FLUID COLLECTIONS INTERSPERSED AMONG THE BOWEL LOOPS HAVE A SIMILAR APPEARANCE TO THE PRIOR STUDIES. NO DEFINITE ACUTE FINDINGS. Chest X-Ray 05/29/16 10:32 IMPRESSION: STABLE MILD SCARRING IN THE RIGHT LUNG BASE. NO ACUTE RADIOGRAPHIC FINDING IN THE CHEST. Renal Ultrasound 06/03/16 00:00 IMPRESSION: 1. Echogenic kidneys consistent with medical renal disease. 2. Free fluid surrounding the left kidney. Assessment & Plan - Diagnosis (1) Acute renal failure Qualifiers: Acute renal failure type: unspecified Qualified Code(s): N17.9 - Acute kidney failure, unspecified Is this a current diagnosis for this admission?: YesPlan: Cause of this could be multifactorial. Contributory factors include vancomycin although level was not toxic when checked, relative hypotension, infection, and IV contrast. Patient is not oliguric. Kidney function is slowly getting better. Renal ultrasound did not show any obstruction. Continue current IV fluids being given with the same rate but with 0.45 normal saline due to hyperchloremia. Monitor intake and output more accurately. No diuretics for now. No need of any renal replacement therapy. Avoid further nephrotoxic agents. Advised patient again is the use of nonsteroidal anti-inflammatory agents including Advil and explained to him the adverse effects in worsening his kidney function and causing hyperkalemia which she has. Due to the patient' s ileostomy output I think the patient really needs a lot of fluid to replace it if his cannot go home from here. (2) SIRS (systemic inflammatory response syndrome) Is this a current diagnosis for this admission?: Yes (3) UTI (urinary tract infection) Qualifiers: Urinary tract infection type: site unspecified Hematuria presence: with hematuria Qualified Code(s): N39.0 - Urinary tract infection, site not specified Is this a current diagnosis for this admission?: Yes (4) Anemia of chronic disease Is this a current diagnosis for this admission?: Yes - Time Time with patient: 15-25 minutes
[2016-06-08] MEDS: ZOLPIDEM TARTRATE 5 MG TABLET PO PRN (22:02)
[2016-06-09] MEDS: HYDROMORPHONE HCL INJ/PF 2 MG/ML AMPULE SUBCUT PRN ×4 (03:43→23:09)
[2016-06-09] MEDS: HEPARIN SOD (PORCINE) 5,000 UNIT/ML 1 ML SYRINGE SUBCUT SCH ×3 (06:05→23:09)
[2016-06-09 06:26] LABS: ANION GAP 12 (5-19); BLOOD UREA NITROGEN 18 mg/dL (7-20); CALCIUM 8.8 mg/dL (8.4-10.2); CARBON DIOXIDE 17 mmol/L (22-30); CHLORIDE 111 mmol/L (98-107); CREATININE RESULT 2.59 mg/dL (0.52-1.25); GLUCOSE 75 mg/dL (75-110); MAGNESIUM 1.4 mg/dL (1.6-2.3); SODIUM 140.3 mmol/L (137-145)
--- NOTE | 2016-06-09 09:11 | PDOC PROGRESS REPORT ---
Subjective Progress Note for:: 06/09/16 Subjective:: The patient was seen earlier today on rounds. The patient admits to abdominal pain. The patient states he did not take any ibuprofen overnight. The patient states he tolerated his meals. The patient creatinine is stable overnight with hydration. Patient states he feels his output has slowed down. Do appreciate Dr. Weaver's with nephrology's input with this. The patient denies any, shortness of breath, dizziness, chest pain, heart palpitations, fevers, or chills. The patient has remained afebrile. Blood pressures have been in a good range. Breakthrough pain has improved with Dilaudid. Review of systems: The rest of the review of systems is negative. Physical Exam Vital Signs: Temp Pulse Resp BP Pulse Ox 98.1 F 50 L 20 132/65 H 98 06/09/16 07:42 06/09/16 07:42 06/09/16 07:42 06/09/16 07:42 06/09/16 07:42 Intake & Output 06/07/16 06/08/16 06/09/16 23:59 23:59 23:59 Intake Total 5541 8892 4019 Output Total 2340 2600 4000 Balance 3201 6292 19 General appearance: PRESENT: no acute distress, well-developed, well-nourished Head exam: PRESENT: atraumatic, normocephalic Eye exam: PRESENT: conjunctiva pink, EOMI, PERRLA. ABSENT: scleral icterus Ear exam: PRESENT: normal external ear exam Mouth exam: PRESENT: moist, tongue midline Neck exam: ABSENT: carotid bruit, JVD, lymphadenopathy, thyromegaly Respiratory exam: PRESENT: clear to auscultation luisa, symmetrical, unlabored. ABSENT: rales, rhonchi, tachypnea, wheezes Cardiovascular exam: PRESENT: RRR. ABSENT: diastolic murmur, rubs, systolic murmur Pulses: PRESENT: normal dorsalis pedis pul Vascular exam: PRESENT: normal capillary refill GI/Abdominal exam: PRESENT: normal bowel sounds, soft. ABSENT: distended, guarding, mass, organolmegaly, rebound, tenderness Rectal exam: PRESENT: deferred Extremities exam: PRESENT: full ROM. ABSENT: calf tenderness, clubbing, pedal edema Neurological exam: PRESENT: alert, awake, oriented to person, oriented to place , oriented to time, oriented to situation, CN II-XII grossly intact. ABSENT: motor sensory deficit Psychiatric exam: PRESENT: appropriate affect, normal mood. ABSENT: homicidal ideation, suicidal ideation Skin exam: PRESENT: dry, intact, warm. ABSENT: cyanosis, rash Results Laboratory Results: 06/07/16 04:36 06/09/16 05:41 06/09/16 05:41 Sodium 140.3 Potassium 5.0 Chloride 111 H Carbon Dioxide 17 L Anion Gap 12 BUN 18 Creatinine 2.59 H Est GFR ( Amer) 33 L Est GFR (Non-Af Amer) 27 L Glucose 75 Calcium 8.8 Magnesium 1.4 L Impressions: Abdomen/Pelvis CT 05/29/16 07:35 IMPRESSION: STABLE APPEARANCE OF THE ABDOMEN AND PELVIS. EXTENSIVE SURGICAL CHANGES. APPARENTLY LOCULATED FLUID COLLECTIONS INTERSPERSED AMONG THE BOWEL LOOPS HAVE A SIMILAR APPEARANCE TO THE PRIOR STUDIES. NO DEFINITE ACUTE FINDINGS. Chest X-Ray 05/29/16 10:32 IMPRESSION: STABLE MILD SCARRING IN THE RIGHT LUNG BASE. NO ACUTE RADIOGRAPHIC FINDING IN THE CHEST. Renal Ultrasound 06/03/16 00:00 IMPRESSION: 1. Echogenic kidneys consistent with medical renal disease. 2. Free fluid surrounding the left kidney. Assessment & Plan - Diagnosis (1) Acute renal failure Qualifiers: Acute renal failure type: unspecified Qualified Code(s): N17.9 - Acute kidney failure, unspecified Is this a current diagnosis for this admission?: YesPlan: Will aggressively hydrate. Do appreciate nephrology input. Instructed patient to stop taking any medications not given to him by nursing, especially NSAIDS. (2) UTI (urinary tract infection) Qualifiers: Urinary tract infection type: site unspecified Hematuria presence: with hematuria Qualified Code(s): N39.0 - Urinary tract infection, site not specified Is this a current diagnosis for this admission?: YesPlan: Continue Pyridium PRN. Resolved. (3) SIRS (systemic inflammatory response syndrome) Is this a current diagnosis for this admission?: YesPlan: Improved Selected Entries (4) Opiate dependence, continuous Is this a current diagnosis for this admission?: YesPlan: Resume home medications. (5) Anemia of chronic disease Is this a current diagnosis for this admission?: Yes (6) Ileostomy in place Is this a current diagnosis for this admission?: YesPlan: Added Questran without major improvement. Will consult GI. (7) Nutrition Is this a current diagnosis for this admission?: Yes (8) Positive blood culture Is this a current diagnosis for this admission?: YesPlan: 1 blood cultures positive for gram-positive cocci. Repeat blood culture was negative therefore felt this is contaminant. (9) Hypomagnesemia Is this a current diagnosis for this admission?: YesPlan: Will replace and replace. - Time Time Spent with patient: 25-34 minutes Medications reviewed and adjusted accordingly: Yes Anticipated discharge: Home Within: within 24 hours, within 48 hours
[2016-06-09] MEDS ORDERED: MAGNESIUM SULFATE/D5W 1 GM/100 ML RTUPB IV ONE (09:15)
[2016-06-09] MEDS: 1/2 NORMAL SALINE 1,000 ML IV PRN ×2 (09:28→16:27)
[2016-06-09] MEDS: CHOLESTYRAMINE/ASPARTAME 4 GM PACKET PO SCH ×4 (09:29→23:08)
[2016-06-09] MEDS: MAGNESIUM OXIDE 400 MG TABLET PO SCH ×3 (09:29→17:20)
[2016-06-10] MEDS: HEPARIN SOD (PORCINE) 5,000 UNIT/ML 1 ML SYRINGE SUBCUT SCH ×3 (05:29→22:51)
[2016-06-10] MEDS: HYDROMORPHONE HCL INJ/PF 2 MG/ML AMPULE SUBCUT PRN ×4 (05:29→22:52)
[2016-06-10 07:05] LABS: ANION GAP 13 (5-19); BLOOD UREA NITROGEN 18 mg/dL (7-20); CARBON DIOXIDE 19 mmol/L (22-30); CHLORIDE 109 mmol/L (98-107); CREATININE RESULT 2.55 mg/dL (0.52-1.25); GLUCOSE 79 mg/dL (75-110); MAGNESIUM 1.6 mg/dL (1.6-2.3); POTASSIUM 4.8 mmol/L (3.6-5.0); SODIUM 141.4 mmol/L (137-145)
[2016-06-10] MEDS: CHOLESTYRAMINE/ASPARTAME 4 GM PACKET PO SCH ×4 (08:42→22:45)
[2016-06-10] MEDS: MAGNESIUM OXIDE 400 MG TABLET PO SCH ×3 (11:06→17:12)
--- NOTE | 2016-06-10 16:36 | PDOC PROGRESS REPORT ---
Subjective Progress Note for:: 06/10/16 Subjective:: The patient was seen earlier today on rounds. The patient admits to abdominal pain. The patient states he did not take any ibuprofen overnight. The patient states he tolerated his meals. The patient creatinine is stable overnight with hydration. Patient states he feels his output has slowed down. Do appreciate Dr. Weaver's with nephrology's input with this. The patient denies any, shortness of breath, dizziness, chest pain, heart palpitations, fevers, or chills. The patient has remained afebrile. Blood pressures have been in a good range. Breakthrough pain has improved with Dilaudid. The patient informed me that his oncologist Dr. Lewis would like to speak with me. I made contact with the office and was recommended to consult oncology here at [place]. Review of systems: The rest of the review of systems is negative. Brief history: Mr. Mansfield is a 41-year-old male with a past medical history of colon cancer with complete colectomy and subsequent ileostomy. The patient is well known to the hospitalist service due to multiple admissions for dehydration as well as a bowel obstruction and ileus secondary to chronic opiate use. The patient was admitted this day due to UTI. During the patient' s stay he developed an acute kidney injury and nephrology was consult. Review of the patient's previous labs it appears the patient has had bouts with elevated creatinines the past however his baseline appears to be in the 1 range. His creatinine went up to 3.5 and was felt to be secondary to vancomycin , transient hypotension, and recently discovered NSAID use from his own bottle. The patient has been aggressively hydrated at the rate of 1 liter every 4 hours however his creatinine is very slowly improving. Nephrology recommendations are for a spent with fluids. Discussed the case with Dr. Presley with oncology who is seen the patient in the past and she has agreed to see him this admission. The patient is on maintenance chemotherapy every 2 weeks and would like to receive his chemotherapy. However given the patient's kidney function proteinuria uncertain if he'll be able to tolerate this however is will be deferred to oncology. Pending oncology's recommendations will discuss home IV fluids versus placement or IV fluids with nephrology for recommendations on rate. Physical Exam Vital Signs: Temp Pulse Resp BP Pulse Ox 98.6 F 46 L 17 158/87 H 99 06/10/16 15:40 06/10/16 15:40 06/10/16 15:40 06/10/16 15:40 06/10/16 15:40 Intake & Output 06/08/16 06/09/16 06/10/16 23:59 23:59 23:59 Intake Total 8892 6619 5466 Output Total 2600 5750 2821 Balance 6292 866 9395 General appearance: PRESENT: no acute distress, well-developed, well-nourished Head exam: PRESENT: atraumatic, normocephalic Eye exam: PRESENT: conjunctiva pink, EOMI, PERRLA. ABSENT: scleral icterus Ear exam: PRESENT: normal external ear exam Mouth exam: PRESENT: moist, tongue midline Neck exam: ABSENT: carotid bruit, JVD, lymphadenopathy, thyromegaly Respiratory exam: PRESENT: clear to auscultation luisa, symmetrical, unlabored. ABSENT: rales, rhonchi, tachypnea, wheezes Cardiovascular exam: PRESENT: RRR. ABSENT: diastolic murmur, rubs, systolic murmur Pulses: PRESENT: normal dorsalis pedis pul Vascular exam: PRESENT: normal capillary refill GI/Abdominal exam: PRESENT: normal bowel sounds, soft. ABSENT: distended, guarding, mass, organolmegaly, rebound, tenderness Rectal exam: PRESENT: deferred Extremities exam: PRESENT: full ROM. ABSENT: calf tenderness, clubbing, pedal edema Neurological exam: PRESENT: alert, awake, oriented to person, oriented to place , oriented to time, oriented to situation, CN II-XII grossly intact. ABSENT: motor sensory deficit Psychiatric exam: PRESENT: appropriate affect, normal mood. ABSENT: homicidal ideation, suicidal ideation Skin exam: PRESENT: dry, intact, warm. ABSENT: cyanosis, rash Results Laboratory Results: 06/07/16 04:36 06/10/16 06:09 06/10/16 06:09 Sodium 141.4 Potassium 4.8 Chloride 109 H Carbon Dioxide 19 L Anion Gap 13 BUN 18 Creatinine 2.55 H Est GFR ( Amer) 34 L Est GFR (Non-Af Amer) 28 L Glucose 79 Calcium 9.0 Magnesium 1.6 Impressions: Abdomen/Pelvis CT 05/29/16 07:35 IMPRESSION: STABLE APPEARANCE OF THE ABDOMEN AND PELVIS. EXTENSIVE SURGICAL CHANGES. APPARENTLY LOCULATED FLUID COLLECTIONS INTERSPERSED AMONG THE BOWEL LOOPS HAVE A SIMILAR APPEARANCE TO THE PRIOR STUDIES. NO DEFINITE ACUTE FINDINGS. Chest X-Ray 05/29/16 10:32 IMPRESSION: STABLE MILD SCARRING IN THE RIGHT LUNG BASE. NO ACUTE RADIOGRAPHIC FINDING IN THE CHEST. Renal Ultrasound 06/03/16 00:00 IMPRESSION: 1. Echogenic kidneys consistent with medical renal disease. 2. Free fluid surrounding the left kidney. Assessment & Plan - Diagnosis (1) Acute renal failure Qualifiers: Acute renal failure type: unspecified Qualified Code(s): N17.9 - Acute kidney failure, unspecified Is this a current diagnosis for this admission?: YesPlan: Will aggressively hydrate. Do appreciate nephrology input. Instructed patient to stop taking any medications not given to him by nursing, especially NSAIDS. Discussed home IV fluids as well as placement for IV fluids and the patient is highly resistant to this stating that he will not make a decision regarding this until he is discussed the case with oncology. Uncertain the exact amount of output from the patient's ileostomy as he frequently empties his bag and flushes it and does not report this to staff. His been encouraged to communicate volume. Appears his baseline creatinine is in the 1 range. She is creatinine was at baseline around admission and DARCY has developed since admission. (2) UTI (urinary tract infection) Qualifiers: Urinary tract infection type: site unspecified Hematuria presence: with hematuria Qualified Code(s): N39.0 - Urinary tract infection, site not specified Is this a current diagnosis for this admission?: YesPlan: Course of treatment has been completed. (3) SIRS (systemic inflammatory response syndrome) Is this a current diagnosis for this admission?: YesPlan: Improved Selected Entries (4) Opiate dependence, continuous Is this a current diagnosis for this admission?: YesPlan: Resume home medications. (5) Anemia of chronic disease Is this a current diagnosis for this admission?: Yes (6) Ileostomy in place Is this a current diagnosis for this admission?: YesPlan: Added Questran without major improvement. A GI consultation. May benefit from medium chain triglyceride such as Coconut oil. (7) Nutrition Is this a current diagnosis for this admission?: Yes (8) Positive blood culture Is this a current diagnosis for this admission?: YesPlan: 1 blood cultures positive for gram-positive cocci. Repeat blood culture was negative therefore felt this is contaminant. (9) Hypomagnesemia Is this a current diagnosis for this admission?: YesPlan: Will replace and replace. - Time Time Spent with patient: on this visit including assessment, plan, physical examination, family meeting, and specialty collaboration, and patient education is 35 minutes. Time Spent with patient: 35 or more minutes Medications reviewed and adjusted accordingly: Yes Anticipated discharge: Home, SNF, Acute Rehab, Other Within: when bed available, Other Disposition: The patient is a full code. Pending patient's symptomatology and diagnostic findings will reevaluate in the a.m.
--- NOTE | 2016-06-10 17:41 | PDOC CONSULTATION ---
Consultation Consult Date: 06/10/16 History of Present Illness Admission Date/PCP: 05/29/16 13:24 ANDREI WILLARD MD History of Present Illness: This is a 41-year-old patient was admitted on 05/29/2016 with urinary tract infection. Consultation was requested for increase in ileostomy output. According to the patient and his output has not changed in any significant way. He does use Imodium at home but feels like he is doing as normal as he has ever been. He had a total colectomy with ileostomy about 11 years ago and continues to follow with an oncologist in [place]. He has a small metastases in his liver and is undergoing chemotherapy Past Medical History Cardiac Medical History: Reports: Hypertension Pulmonary Medical History: Denies: Tuberculosis Malignancy Medical History: Reports: Colorectal Cancer - With ileostomy placement. GI Medical History: Reports: Other - Recurrent small bowel obstructions Psychiatric Medical History: Reports: Other - Opiate dependence Past Surgical History Past Surgical History: Reports: Appendectomy, Cholecystectomy, Ileostomy, Splenectomy - Partial Social History Lives with: Family Smoking Status: Never Smoker Frequency of Alcohol Use: Social Hx Recreational Drug Use: No Hx Prescription Drug Abuse: No - Advance Directive Resuscitation Status: Full Code Family History Family History: Reviewed & Not Pertinent Parental Family History Reviewed: No Children Family History Reviewed: NA Sibling(s) Family History Reviewed.: NA Medication/Allergy Home Medications: Alprazolam [Xanax 0.5 mg Tablet] 0.5 mg PO BID 05/29/16 Diphenoxylate HCl/Atropine [Lomotil 2.5-0.025 mg Tablet] 1 tab PO TIDP PRN 05/29 Hydromorphone HCl [Dilaudid] 8 mg PO Q4HP PRN 05/29/16 Ondansetron HCl [Zofran 8 mg Tablet] 8 mg PO Q8HP PRN 05/29/16 Promethazine HCl [Phenergan] 25 mg PO Q6 05/29/16 Zolpidem Tartrate [Ambien 5 mg Tablet] 5 mg PO HSP PRN 05/29/16 Allergies/Adverse Reactions: No Known Allergies Allergy (Verified 12/05/15 09:26) Review of Systems All systems: reviewed and no additional remarkable complaints except as stated Physical Exam Vital Signs: Temp Pulse Resp BP Pulse Ox 98.6 F 46 L 17 158/87 H 99 06/10/16 15:40 06/10/16 15:40 06/10/16 15:40 06/10/16 15:40 06/10/16 15:40 Intake & Output 06/09/16 06/10/16 06/11/16 06:59 06:59 06:59 Intake Total 9711 7066 1000 Output Total 4600 3671 900 Balance 5111 3395 100 Exam: General: Patient is alert and looks well. HEENT: There is no pallor or jaundice. PERRLA. Oropharynx normal Respiratory: No chest deformity. No respiratory distress. Chest wall palpitation was unremarkable. Breath sounds were normal Cardiovascular: Heart sounds 1 and 2 normal with no murmurs. Abdominal: Not distended. Soft and nontender. Liver and spleen not palpable. No ascites demonstrated. Bowel sounds active. Rectal examination was deferred. He has an ileostomy Extremities: No edema Neurological: Alert and oriented x4. Grossly nonfocal. Normal speech Skin: No significant rash Psychological: Normal affect Results Laboratory Results: 06/07/16 04:36 06/10/16 06:09 06/10/16 06:09 Sodium 141.4 Potassium 4.8 Chloride 109 H Carbon Dioxide 19 L Anion Gap 13 BUN 18 Creatinine 2.55 H Est GFR ( Amer) 34 L Est GFR (Non-Af Amer) 28 L Glucose 79 Calcium 9.0 Magnesium 1.6 Impressions: Abdomen/Pelvis CT 05/29/16 07:35 IMPRESSION: STABLE APPEARANCE OF THE ABDOMEN AND PELVIS. EXTENSIVE SURGICAL CHANGES. APPARENTLY LOCULATED FLUID COLLECTIONS INTERSPERSED AMONG THE BOWEL LOOPS HAVE A SIMILAR APPEARANCE TO THE PRIOR STUDIES. NO DEFINITE ACUTE FINDINGS. Chest X-Ray 05/29/16 10:32 IMPRESSION: STABLE MILD SCARRING IN THE RIGHT LUNG BASE. NO ACUTE RADIOGRAPHIC FINDING IN THE CHEST. Renal Ultrasound 06/03/16 00:00 IMPRESSION: 1. Echogenic kidneys consistent with medical renal disease. 2. Free fluid surrounding the left kidney. Assessment & Plan - Diagnosis (1) Ileostomy dysfunction Is this a current diagnosis for this admission?: YesPlan: His ileostomy output is actually stable from what the patient is saying. He was started on Questran which did not change his output much. He will continue to use Imodium when necessary. (2) Ileostomy in place Is this a current diagnosis for this admission?: Yes (3) Colon cancer Qualifiers: Colon location: unspecified part of colon Qualified Code(s): C18.9 - Malignant neoplasm of colon, unspecified Is this a current diagnosis for this admission?: YesPlan: He has metastasis to his liver and is currently undergoing treatment. He will follow-up with his oncologist as outpatient. He was seen by Dr. Presley in house
[2016-06-10] MEDS: ZOLPIDEM TARTRATE 5 MG TABLET PO PRN (22:52)
[2016-06-11] MEDS: HYDROMORPHONE HCL INJ/PF 2 MG/ML AMPULE SUBCUT PRN ×2 (05:07→11:20)
[2016-06-11] MEDS: HEPARIN SOD (PORCINE) 5,000 UNIT/ML 1 ML SYRINGE SUBCUT SCH ×3 (05:07→22:17)
--- NOTE | 2016-06-11 07:55 | PDOC CONSULTATION ---
Consultation Consult Date: 06/10/16 Consult reason:: Colon Cancer History of Present Illness Admission Date/PCP: 05/29/16 13:24 ANDREI WILLARD MD History of Present Illness: This is a 41-year-old AA male with a h/o Stage IV Colorectal cancer followed by Dr. Veronica Lewis currently on active treatment who was admitted on 05/29/2016 with urinary tract infection. His hospital course has been complicated by renal insufficiency but he would like to continue his treatment. He had a total colectomy with ileostomy about 11 years ago and continues to follow with an oncologist in [place]. He has a small metastases in his liver and continues to have abdominal discomfort and is on chronic analgesics at home with Dilaudid. Past Medical History Cardiac Medical History: Reports: Hypertension Pulmonary Medical History: Denies: Tuberculosis Malignancy Medical History: Reports: Colorectal Cancer - With ileostomy placement. GI Medical History: Reports: Other - Recurrent small bowel obstructions Psychiatric Medical History: Reports: Other - Opiate dependence Past Surgical History Past Surgical History: Reports: Appendectomy, Cholecystectomy, Ileostomy, Splenectomy - Partial Social History Lives with: Family Smoking Status: Never Smoker Frequency of Alcohol Use: Social Hx Recreational Drug Use: No Hx Prescription Drug Abuse: No - Advance Directive Resuscitation Status: Full Code Family History Family History: Reviewed & Not Pertinent Parental Family History Reviewed: Yes Children Family History Reviewed: Yes Sibling(s) Family History Reviewed.: Yes Medication/Allergy Home Medications: Alprazolam [Xanax 0.5 mg Tablet] 0.5 mg PO BID 05/29/16 Diphenoxylate HCl/Atropine [Lomotil 2.5-0.025 mg Tablet] 1 tab PO TIDP PRN 05/29 Hydromorphone HCl [Dilaudid] 8 mg PO Q4HP PRN 05/29/16 Ondansetron HCl [Zofran 8 mg Tablet] 8 mg PO Q8HP PRN 05/29/16 Promethazine HCl [Phenergan] 25 mg PO Q6 05/29/16 Zolpidem Tartrate [Ambien 5 mg Tablet] 5 mg PO HSP PRN 05/29/16 Allergies/Adverse Reactions: No Known Allergies Allergy (Verified 12/05/15 09:26) Review of Systems Constitutional: PRESENT: as per HPI Gastrointestinal: PRESENT: diarrhea, other - abdominal pain Genitourinary: PRESENT: as per HPI Musculoskeletal: PRESENT: as per HPI Physical Exam Vital Signs: Temp Pulse Resp BP Pulse Ox 98.3 F 87 18 120/69 100 06/11/16 03:22 06/11/16 07:00 06/11/16 03:22 06/11/16 03:22 06/11/16 03:22 Intake & Output 06/10/16 06/11/16 06/12/16 06:59 06:59 06:59 Intake Total 7066 2327 Output Total 3671 2175 Balance 3395 152 Head exam: PRESENT: atraumatic, normocephalic Eye exam: PRESENT: conjunctiva pale Neck exam: PRESENT: full ROM Respiratory exam: PRESENT: clear to auscultation luisa Cardiovascular exam: PRESENT: RRR GI/Abdominal exam: PRESENT: normal bowel sounds, tenderness, other - stoma with output, midline thickening at surgical site Psychiatric exam: PRESENT: appropriate affect Results Laboratory Results: 06/07/16 04:36 06/10/16 06:09 Impressions: Abdomen/Pelvis CT 05/29/16 07:35 IMPRESSION: STABLE APPEARANCE OF THE ABDOMEN AND PELVIS. EXTENSIVE SURGICAL CHANGES. APPARENTLY LOCULATED FLUID COLLECTIONS INTERSPERSED AMONG THE BOWEL LOOPS HAVE A SIMILAR APPEARANCE TO THE PRIOR STUDIES. NO DEFINITE ACUTE FINDINGS. Chest X-Ray 05/29/16 10:32 IMPRESSION: STABLE MILD SCARRING IN THE RIGHT LUNG BASE. NO ACUTE RADIOGRAPHIC FINDING IN THE CHEST. Renal Ultrasound 06/03/16 00:00 IMPRESSION: 1. Echogenic kidneys consistent with medical renal disease. 2. Free fluid surrounding the left kidney. Assessment & Plan - Diagnosis (1) Acute renal failure Qualifiers: Acute renal failure type: unspecified Qualified Code(s): N17.9 - Acute kidney failure, unspecified Is this a current diagnosis for this admission?: YesPlan: Dr. Weaver following but may be in part due to his therapy. Will confirm his treatment with Dr. Lewis (2) Colon cancer metastasized to liver Is this a current diagnosis for this admission?: YesPlan: If feasible will continue his treatment. (3) Opiate dependence, continuous Is this a current diagnosis for this admission?: YesPlan: Discussed adding Fentanyl patch but he is resistant and wants his current regimen of prn Dilaudid - Time Critical Time spent with patient: 15-24 minutes Medications reviewed and adjusted accordingly: Yes - Inpatient Certification Medical Necessity: Significant Comorbidiites Make Outpatient Treatment Too Risky
[2016-06-11] MEDS: CHOLESTYRAMINE/ASPARTAME 4 GM PACKET PO SCH ×4 (08:22→22:18)
[2016-06-11] MEDS: MAGNESIUM OXIDE 400 MG TABLET PO SCH ×3 (09:40→17:14)
--- NOTE | 2016-06-11 11:14 | PDOC PROGRESS REPORT ---
Subjective Progress Note for:: 06/11/16 Subjective:: The patient is an unfortunate 41-year-old -[place] male with a past medical history significant for colorectal cancer who follows with Dr. Veronica Lewis. He is on maintenance chemotherapy every 2 weeks. He has a past medical history significant for total colectomy and ileostomy. He has issues with a high output ileostomy. The patient was admitted to the hospital with urinary tract infection. He has developed acute renal failure thought to be multifactorial in nature secondary to dehydration, medications and instead use. The patient is being aggressively hydrated by nephrology and is receiving 1 L of fluid every 4 hours. His renal function is quite slow to improve. His baseline creatinine is around 1.0. As of yesterday his creatinine is down to 2.5. It peaked in the mid [address] Presley from the oncology service has seen the patient at the request of Dr. Veronica Lewis as the patient would like to continue his chemotherapy here in the hospital. She is making efforts to arrange this. Today when I saw the patient he is quite confused regarding the plan of care. I spent quite some time reviewing the hospitalization to date and he currently understands that he needs further fluid hydration. Hopefully we can get his kidney function in a better place and I have explained that he will have more options regarding chemotherapy going forward if his renal function will improve. In regards to his high output ileostomy he states that the only thing that has ever worked for him is Imodium. He has never been tried on octreotide. He was seen by gastroenterology who is making no changes to his regimen. At this point it is recommended that he continue when necessary Imodium as well as the Questran that was started during this hospitalization. Overall he states that he is feeling much better. He believes that he has been treated for his urinary tract infection. His biggest complaints are that he is receiving IM Dilaudid. He does not want to change his dosing but is asked if he could get this through his IV as it is quite painful to get the IM injection. Otherwise he denies fever or chills. He's had no chest pain, shortness of breath or heart palpitations. No nausea, vomiting. He states his output from his ileostomy is stable. No dysuria, frequency or hematuria. Physical Exam Vital Signs: Temp Pulse Resp BP Pulse Ox 98.0 F 56 L 17 143/89 H 95 06/11/16 08:04 06/11/16 08:04 06/11/16 08:04 06/11/16 08:04 06/11/16 08:04 Intake & Output 06/10/16 06/11/16 06/12/16 06:59 06:59 06:59 Intake Total 7067 2327 Output Total 3671 2175 Balance 3395 152 General appearance: PRESENT: no acute distress, well-developed, well-nourished Head exam: PRESENT: atraumatic, normocephalic Mouth exam: PRESENT: moist, tongue midline Respiratory exam: PRESENT: clear to auscultation luisa. ABSENT: rales, rhonchi, wheezes Cardiovascular exam: PRESENT: RRR. ABSENT: diastolic murmur, rubs, systolic murmur GI/Abdominal exam: PRESENT: hernia, normal bowel sounds, soft, other - Ileostomy in place that appears to be working properly.. ABSENT: ascites, distended, rebound, rigid, tenderness Rectal exam: PRESENT: deferred Neurological exam: PRESENT: alert, awake, oriented to person, oriented to place , oriented to time, CN II-XII grossly intact Psychiatric exam: PRESENT: appropriate affect, normal mood. ABSENT: homicidal ideation, suicidal ideation Skin exam: PRESENT: dry, intact, warm. ABSENT: cyanosis, rash Results Laboratory Results: 06/07/16 04:36 06/10/16 06:09 Impressions: Abdomen/Pelvis CT 05/29/16 07:35 IMPRESSION: STABLE APPEARANCE OF THE ABDOMEN AND PELVIS. EXTENSIVE SURGICAL CHANGES. APPARENTLY LOCULATED FLUID COLLECTIONS INTERSPERSED AMONG THE BOWEL LOOPS HAVE A SIMILAR APPEARANCE TO THE PRIOR STUDIES. NO DEFINITE ACUTE FINDINGS. Chest X-Ray 05/29/16 10:32 IMPRESSION: STABLE MILD SCARRING IN THE RIGHT LUNG BASE. NO ACUTE RADIOGRAPHIC FINDING IN THE CHEST. Renal Ultrasound 06/03/16 00:00 IMPRESSION: 1. Echogenic kidneys consistent with medical renal disease. 2. Free fluid surrounding the left kidney. Assessment & Plan - Diagnosis (1) High output ileostomy Plan: Gastroenterology recommended Imodium. I see that this is not being given at this point. I am going to place him on scheduled Imodium and we'll see how he does over the next day or 2. He will continue Questran. Of note he has never been tried on octreotide. (2) Acute renal failure Qualifiers: Acute renal failure type: unspecified Qualified Code(s): N17.9 - Acute kidney failure, unspecified Is this a current diagnosis for this admission?: YesPlan: The patient's creatinine is slow to improve. He will continue current IV fluids. We will await further recommendations from nephrology. We will check a chemistry panel in the morning. (3) Colon cancer metastasized to liver Is this a current diagnosis for this admission?: YesPlan: He has been seen by Dr. Presley and we certainly appreciate her input. She is looking into whether he can receive chemotherapy during this hospitalization. He usually follows with Dr. Veronica Lewis. (4) Hypomagnesemia Is this a current diagnosis for this admission?: YesPlan: Repleted. He will have a magnesium level checked in the morning. (5) Positive blood culture Is this a current diagnosis for this admission?: YesPlan: He had one out of 2 blood cultures at the time of admission positive for staph epidermidis. Repeat blood cultures have been negative. This was likely a contaminant (6) SIRS (systemic inflammatory response syndrome) Is this a current diagnosis for this admission?: YesPlan: Secondary to urinary tract infection and acute renal failure. Improving (7) UTI (urinary tract infection) Qualifiers: Urinary tract infection type: site unspecified Hematuria presence: with hematuria Qualified Code(s): N39.0 - Urinary tract infection, site not specified Is this a current diagnosis for this admission?: YesPlan: He has completed a course of IV antibiotics. His urine culture was negative. (8) Opiate dependence, continuous Is this a current diagnosis for this admission?: YesPlan: The patient has chronic pain with continuous narcotic use and is on an oral regimen at home. I will change his IM dosing to IV dosing of his Dilaudid. We are not going to escalate the dose. He may have Dilaudid 1 mg every 6 hours when necessary. (9) Anemia of chronic disease Is this a current diagnosis for this admission?: YesPlan: He has had a precipitous drop in his hemoglobin likely due to hemodilution. He also likely has an anemia of chronic disease due to his underlying malignancy. His hemoglobin is stable. We'll recheck a CBC in the morning. - Time Time Spent with patient: 15-24 minutes Medications reviewed and adjusted accordingly: Yes Anticipated discharge: Home
[2016-06-11] MEDS: LOPERAMIDE HCL 2 MG CAPSULE PO SCH ×3 (13:29→23:13)
[2016-06-11] MEDS: HYDROMORPHONE HCL INJ/PF 2 MG/ML AMPULE IV PRN ×2 (17:14→23:13)
[2016-06-11] MEDS: ZOLPIDEM TARTRATE 5 MG TABLET PO PRN (23:14)
[2016-06-11] MEDS: 1/2 NORMAL SALINE 1,000 ML IV PRN (23:14)
[2016-06-12] MEDS: HYDROMORPHONE HCL INJ/PF 2 MG/ML AMPULE IV PRN ×3 (05:11→17:58)
[2016-06-12] MEDS: HEPARIN SOD (PORCINE) 5,000 UNIT/ML 1 ML SYRINGE SUBCUT SCH ×3 (05:11→22:33)
[2016-06-12] MEDS: LOPERAMIDE HCL 2 MG CAPSULE PO SCH ×4 (05:12→22:33)
[2016-06-12 05:23] LABS: HEMATOCRIT 37.2 % (37.9-51.0); HEMOGLOBIN 11.4 g/dL (13.5-17.0); MEAN CORPUSCULAR HGB CONC 30.8 g/dL (32.0-36.0); MEAN CORPUSCULAR VOLUME 75 fl (80-97); RED BLOOD COUNT 4.97 10^6/uL (4.35-5.55); RED CELL DISTRIBUTION WIDTH 17.4 % (11.5-14.0); WHITE BLOOD COUNT 13.2 10^3/uL (4.0-10.5)
[2016-06-12 05:35] LABS: ANION GAP 13 (5-19); BLOOD UREA NITROGEN 14 mg/dL (7-20); CALCIUM 9.1 mg/dL (8.4-10.2); CARBON DIOXIDE 22 mmol/L (22-30); CHLORIDE 108 mmol/L (98-107); CREATININE RESULT 2.33 mg/dL (0.52-1.25); GLUCOSE 89 mg/dL (75-110); MAGNESIUM 1.4 mg/dL (1.6-2.3); POTASSIUM 4.9 mmol/L (3.6-5.0); SODIUM 143.4 mmol/L (137-145)
[2016-06-12 06:17] LABS: BASOPHILS % (MANUAL) 0 % (0-2); EOSINOPHILS % (MANUAL) 1 % (0-6); LYMPHOCYTES % (MANUAL) 12 % (13-45); TOTAL CELLS COUNTED 100
[2016-06-12 06:21] LABS: ANISOCYTOSIS 1+; MICROCYTOSIS 1+; POIKILOCYTOSIS 3+; POLYCHROMASIA SLIGHT; TARGET CELLS 3+
[2016-06-12 06:22] LABS: PLATELET CLUMPS PRESENT
[2016-06-12] MEDS: MAGNESIUM SULFATE/D5W 1 GM/100 ML RTUPB IV SCH ×3 (09:24→12:16)
[2016-06-12] MEDS: MAGNESIUM OXIDE 400 MG TABLET PO SCH ×3 (09:24→17:06)
[2016-06-12] MEDS: CHOLESTYRAMINE/ASPARTAME 4 GM PACKET PO SCH ×4 (09:47→21:56)
--- NOTE | 2016-06-12 15:40 | PDOC PROGRESS REPORT ---
Subjective Progress Note for:: 06/12/16 Subjective:: The patient is resting comfortably in his bed. He has no complaints today. He said that yesterday afternoon he developed some nausea and had an episode of vomiting. This was not associated with any abdominal pain. He's had no fever chills overnight. He does not have a headache or any sign of an upper respiratory infection. He does not have a cough. No chest pain or heart palpitations. No further episodes of nausea today. He states he tolerated his diet and has had no vomiting. He has no abdominal pain. He believes the output from his ileostomy is improving. He reports no dysuria, frequency or hematuria. Physical Exam Vital Signs: Temp Pulse Resp BP Pulse Ox 98.7 F 63 18 130/86 H 95 06/12/16 11:40 06/12/16 11:40 06/12/16 11:40 06/12/16 11:40 06/12/16 11:40 Intake & Output 06/11/16 06/12/16 06/13/16 06:59 06:59 06:59 Intake Total 2327 4196 Output Total 2175 1400 Balance 152 2796 General appearance: PRESENT: no acute distress, well-developed, well-nourished Head exam: PRESENT: atraumatic, normocephalic Mouth exam: PRESENT: moist, tongue midline Respiratory exam: PRESENT: clear to auscultation lusia. ABSENT: rales, rhonchi, wheezes Cardiovascular exam: PRESENT: RRR. ABSENT: diastolic murmur, rubs, systolic murmur Extremities exam: PRESENT: full ROM. ABSENT: calf tenderness, clubbing, pedal edema Results Laboratory Results: 06/12/16 04:45 06/12/16 04:45 06/12/16 06/12/16 04:45 04:45 WBC 13.2 H RBC 4.97 Hgb 11.4 L Hct 37.2 L MCV 75 L MCH 23.0 L MCHC 30.8 L RDW 17.4 H Plt Count 742 H Seg Neutrophils % Not Reportable Lymphocytes % Not Reportable Monocytes % Not Reportable Eosinophils % Not Reportable Basophils % Not Reportable Absolute Neutrophils Not Reportable Absolute Lymphocytes Not Reportable Absolute Monocytes Not Reportable Absolute Eosinophils Not Reportable Absolute Basophils Not Reportable Sodium 143.4 Potassium 4.9 Chloride 108 H Carbon Dioxide 22 Anion Gap 13 BUN 14 Creatinine 2.33 H Est GFR ( Amer) 37 L Est GFR (Non-Af Amer) 31 L Glucose 89 Calcium 9.1 Magnesium 1.4 L Impressions: Abdomen/Pelvis CT 05/29/16 07:35 IMPRESSION: STABLE APPEARANCE OF THE ABDOMEN AND PELVIS. EXTENSIVE SURGICAL CHANGES. APPARENTLY LOCULATED FLUID COLLECTIONS INTERSPERSED AMONG THE BOWEL LOOPS HAVE A SIMILAR APPEARANCE TO THE PRIOR STUDIES. NO DEFINITE ACUTE FINDINGS. Chest X-Ray 05/29/16 10:32 IMPRESSION: STABLE MILD SCARRING IN THE RIGHT LUNG BASE. NO ACUTE RADIOGRAPHIC FINDING IN THE CHEST. Renal Ultrasound 06/03/16 00:00 IMPRESSION: 1. Echogenic kidneys consistent with medical renal disease. 2. Free fluid surrounding the left kidney. Assessment & Plan - Diagnosis (1) High output ileostomy Plan: He will continue scheduled Imodium. He states his output is improving. He has been seen by gastroenterology and we certainly appreciate their input. (2) Acute renal failure Qualifiers: Acute renal failure type: unspecified Qualified Code(s): N17.9 - Acute kidney failure, unspecified Is this a current diagnosis for this admission?: YesPlan: Creatinine is somewhat improved today. He will continue current IV fluid hydration and we will recheck a chemistry panel in the morning. (3) Colon cancer metastasized to liver Is this a current diagnosis for this admission?: YesPlan: I spoke to Dr. Presley this morning. She has contacted his primary oncologist Dr. Veronica Lewis. Dr. Lewis does not think he needs to be treated while he is here in the hospital and wants us to work on getting his acute issues under control. (4) Hypomagnesemia Is this a current diagnosis for this admission?: YesPlan: Repleted. He will have a magnesium level checked in the morning. (5) Positive blood culture Is this a current diagnosis for this admission?: YesPlan: He had one out of 2 blood cultures positive for staph epidermidis. Repeat blood cultures were subsequently negative. The patient does have worsening leukocytosis. We will repeat blood cultures one more time today. I believe the initial positive blood culture was a contaminant (6) SIRS (systemic inflammatory response syndrome) Is this a current diagnosis for this admission?: YesPlan: Resolved (7) UTI (urinary tract infection) Qualifiers: Urinary tract infection type: site unspecified Hematuria presence: with hematuria Qualified Code(s): N39.0 - Urinary tract infection, site not specified Is this a current diagnosis for this admission?: YesPlan: He has completed a course of IV antibiotics. His urine culture was negative. (8) Opiate dependence, continuous Is this a current diagnosis for this admission?: YesPlan: The patient has chronic pain with continuous narcotic use and is on an oral regimen at home. He may have Dilaudid 1 mg every 6 hours when necessary. (9) Anemia of chronic disease Is this a current diagnosis for this admission?: YesPlan: He has had a precipitous drop in his hemoglobin likely due to hemodilution. He also likely has an anemia of chronic disease due to his underlying malignancy. His hemoglobin is stable. We'll recheck a CBC in the morning. - Time Time Spent with patient: 25-34 minutes - 25 minutes
[2016-06-12 22:33] LABS: APPEARANCE,URINE CLEAR; BILIRUBIN,URINE NEGATIVE (NEGATIVE); GLUCOSE, URINE NEGATIVE (NEGATIVE); KETONES,URINE NEGATIVE (NEGATIVE); LEUKOCYTE ESTERASE,URINE SMALL (NEGATIVE); NITRITE,URINE NEGATIVE (NEGATIVE); PROTEIN,URINE NEGATIVE (NEGATIVE); URINE SPECIFIC GRAVITY 1.004; UROBILINOGEN,URINE NEGATIVE mg/dL (<2.0)
[2016-06-12] MEDS: 1/2 NORMAL SALINE 1,000 ML IV PRN (22:33)
--- NOTE | 2016-06-12 23:03 | PDOC PROGRESS REPORT ---
Subjective Progress Note for:: 06/12/16 Subjective:: Feeling better today and discussed that Dr. Lewis would like to hold on his treatment. Pain is currently under control. Physical Exam Vital Signs: Temp Pulse Resp BP Pulse Ox 98.5 F 58 L 20 128/86 H 100 06/12/16 19:57 06/12/16 19:57 06/12/16 19:57 06/12/16 19:57 06/12/16 19:57 Intake & Output 06/11/16 06/12/16 06/13/16 06:59 06:59 06:59 Intake Total 2327 4196 2460 Output Total 2175 1400 1625 Balance 152 2796 835 General appearance: PRESENT: no acute distress Head exam: PRESENT: atraumatic, normocephalic Eye exam: PRESENT: EOMI, PERRLA Ear exam: PRESENT: normal external ear exam Respiratory exam: PRESENT: clear to auscultation luisa Cardiovascular exam: PRESENT: RRR GI/Abdominal exam: PRESENT: hyperactive bowel sounds, soft Neurological exam: PRESENT: alert, awake, oriented to person, oriented to place , oriented to time, oriented to situation, CN II-XII grossly intact Psychiatric exam: PRESENT: appropriate affect Results Laboratory Results: 06/12/16 04:45 06/12/16 04:45 06/12/16 06/12/16 06/12/16 04:45 04:45 17:50 WBC 13.2 H RBC 4.97 Hgb 11.4 L Hct 37.2 L MCV 75 L MCH 23.0 L MCHC 30.8 L RDW 17.4 H Plt Count 742 H Seg Neutrophils % Not Reportable Lymphocytes % Not Reportable Monocytes % Not Reportable Eosinophils % Not Reportable Basophils % Not Reportable Absolute Neutrophils Not Reportable Absolute Lymphocytes Not Reportable Absolute Monocytes Not Reportable Absolute Eosinophils Not Reportable Absolute Basophils Not Reportable Sodium 143.4 Potassium 4.9 Chloride 108 H Carbon Dioxide 22 Anion Gap 13 BUN 14 Creatinine 2.33 H Est GFR ( Amer) 37 L Est GFR (Non-Af Amer) 31 L Glucose 89 Calcium 9.1 Magnesium 1.4 L Urine Color COLORLESS Urine Appearance CLEAR Urine pH 6.0 Ur Specific [place] 1.004 Urine Protein NEGATIVE Urine Glucose (UA) NEGATIVE Urine Ketones NEGATIVE Urine Blood SMALL H Urine Nitrite NEGATIVE Ur Leukocyte Esterase SMALL H Urine WBC (Auto) 11 Urine RBC (Auto) 2 Impressions: Abdomen/Pelvis CT 05/29/16 07:35 IMPRESSION: STABLE APPEARANCE OF THE ABDOMEN AND PELVIS. EXTENSIVE SURGICAL CHANGES. APPARENTLY LOCULATED FLUID COLLECTIONS INTERSPERSED AMONG THE BOWEL LOOPS HAVE A SIMILAR APPEARANCE TO THE PRIOR STUDIES. NO DEFINITE ACUTE FINDINGS. Renal Ultrasound 06/03/16 00:00 IMPRESSION: 1. Echogenic kidneys consistent with medical renal disease. 2. Free fluid surrounding the left kidney. Chest X-Ray 06/12/16 15:30 IMPRESSION: There appears to be of minimal right pleural effusion compared to the earlier study. No acute pulmonary disease is seen. Assessment & Plan - Diagnosis (1) Acute renal failure Qualifiers: Acute renal failure type: unspecified Qualified Code(s): N17.9 - Acute kidney failure, unspecified Is this a current diagnosis for this admission?: YesPlan: Dr. Lewis said that he had had ARF in the past secondary to high output failure. He has had to increase his intake of Gatorade in the past to maintain his renal function and lytes. (2) Colon cancer metastasized to liver Is this a current diagnosis for this admission?: YesPlan: Will hold on treatment at this time. (3) Opiate dependence, continuous Is this a current diagnosis for this admission?: Yes - Time Time Spent with patient: 25-34 minutes Critical Time spent with patient: 15-24 minutes Medications reviewed and adjusted accordingly: Yes Anticipated discharge: Home Within: within 48 hours
[2016-06-13] MEDS: HYDROMORPHONE HCL INJ/PF 2 MG/ML AMPULE IV PRN ×3 (00:02→12:02)
[2016-06-13] MEDS: ZOLPIDEM TARTRATE 5 MG TABLET PO PRN (00:03)
[2016-06-13] MEDS: HEPARIN SOD (PORCINE) 5,000 UNIT/ML 1 ML SYRINGE SUBCUT SCH ×2 (06:03→14:03)
[2016-06-13] MEDS: LOPERAMIDE HCL 2 MG CAPSULE PO SCH ×2 (06:05→10:40)
[2016-06-13 06:16] LABS: ANION GAP 14 (5-19); BLOOD UREA NITROGEN 15 mg/dL (7-20); CARBON DIOXIDE 22 mmol/L (22-30); CHLORIDE 105 mmol/L (98-107); CREATININE RESULT 2.34 mg/dL (0.52-1.25); GLUCOSE 86 mg/dL (75-110); MAGNESIUM 1.8 mg/dL (1.6-2.3)
[2016-06-13 06:23] LABS: POTASSIUM 5.1 mmol/L (3.6-5.0)
[2016-06-13] MEDS: CHOLESTYRAMINE/ASPARTAME 4 GM PACKET PO SCH ×2 (08:43→12:03)
[2016-06-13] MEDS: MAGNESIUM OXIDE 400 MG TABLET PO SCH ×2 (10:40→14:03)
[2016-06-13 11:55] LABS: HEMATOCRIT 40.5 % (37.9-51.0); HEMOGLOBIN 12.5 g/dL (13.5-17.0); MEAN CORPUSCULAR HEMOGLOBIN 23.2 pg (27.0-33.4); MEAN CORPUSCULAR HGB CONC 30.8 g/dL (32.0-36.0); MEAN CORPUSCULAR VOLUME 75 fl (80-97); RED BLOOD COUNT 5.39 10^6/uL (4.35-5.55); RED CELL DISTRIBUTION WIDTH 17.3 % (11.5-14.0); WHITE BLOOD COUNT 10.6 10^3/uL (4.0-10.5)
[2016-06-13 12:40] LABS: EOSINOPHILS % (MANUAL) 3 % (0-6); LYMPHOCYTES % (MANUAL) 15 % (13-45); TOTAL CELLS COUNTED 100
[2016-06-13 12:41] LABS: ANISOCYTOSIS 2+; BASOPHILS % (MANUAL) 6 % (0-2); BURR CELLS SLIGHT; HYPOCHROMASIA 2+; MICROCYTOSIS 1+; POIKILOCYTOSIS 1+; SCHISTOCYTES 1+; TARGET CELLS 3+
[2016-06-13 12:42] LABS: PLATELET CLUMPS PRESENT; ROULEAUX 2+; TOXIC GRANULATION 2+; TOXIC VACUOLATION PRESENT
[2016-06-13 12:43] LABS: HOWELL-JOLLY BODIES PRESENT
--- NOTE | 2016-06-13 13:55 | PDOC DISCHARGE SUMMARY ---
General - Admit/Disc Date/PCP Admission Date/Primary Care Provider: 05/29/16 13:24 ANDREI WILLARD MD Oncologist: Dr. Veronica Lewis Discharge Date: 06/13/16 - Discharge Diagnosis (1) High output ileostomy Is this a current diagnosis for this admission?: YesSummary: Improved. He has been started on Questran. He will take Imodium as needed. (2) Acute renal failure Is this a current diagnosis for this admission?: YesSummary: Improved with aggressive IV fluid hydration. Creatinine on the day of discharge is 2.34 (3) Colon cancer metastasized to liver Is this a current diagnosis for this admission?: YesSummary: He will follow-up with Dr. Veronica Lewis this week. He was seen by Dr. Presley during this hospitalization and chemotherapy was deferred until he got out of the hospital. (4) Hypomagnesemia Is this a current diagnosis for this admission?: YesSummary: He has been started on by mouth supplementation (5) Positive blood culture Is this a current diagnosis for this admission?: YesSummary: Staph epidermidis in 1 out of 2 bottles. Repeat cultures were negative. This was thought to be a skin contaminant. (6) SIRS (systemic inflammatory response syndrome) Is this a current diagnosis for this admission?: YesSummary: Resolved (7) UTI (urinary tract infection) Is this a current diagnosis for this admission?: YesSummary: He completed a course of antibiotic therapy. His urine culture however was negative. (8) Thrombocytosis Summary: The patient has developed thrombocytosis. This is thought to be reactive. I have encouraged him to follow-up with Dr. Lewis next week. (9) Opiate dependence, continuous Is this a current diagnosis for this admission?: YesSummary: Chronic pain with continuous narcotic use. He will resume his home regimen (10) Anemia of chronic disease Is this a current diagnosis for this admission?: YesSummary: Likely due to his underlying malignancy as well as hemodilution from aggressive fluid hydration - Additional Information Resuscitation Status: Full Code Discharge Diet: As Tolerated, Regular Discharge Activity: Activity As Tolerated, Balance Activity w/Rest, Slowly Increase Activity Home Medications: Alprazolam [Xanax 0.5 mg Tablet] 0.5 mg PO BID 05/29/16 Hydromorphone HCl [Dilaudid] 8 mg PO Q4HP PRN 05/29/16 Promethazine HCl [Phenergan] 25 mg PO Q6 05/29/16 Zolpidem Tartrate [Ambien 5 mg Tablet] 5 mg PO HSP PRN 05/29/16 Cholestyramine/Aspartame [Questran Light 4 gm Packet] 4 gm PO MEALSHS #120 packet 06/13/16 Loperamide HCl [Imodium 2 mg Capsule] 2 mg PO Q6H capsule 06/13/16 Magnesium Oxide [Mag-Ox 400 mg Tablet] 800 mg PO TID #90 tablet 06/13/16 History of Present Illness History of Present Illness: JERE CRUZ is a 41 year old male who presented to the emergency room with abdominal pain and fever Hospital Course Hospital Course: The patient is an unfortunate 41-year-old -[place] male with a past medical history significant for colorectal cancer. He follows with Dr. Veronica Lewis. He is on maintenance chemotherapy every 2 weeks. He has a past medical history significant for total colectomy and ileostomy. He has issues with a high output ileostomy. The patient presented to the emergency room with fever and abdominal pain and was found to have evidence of a urinary tract infection. He also had acute renal failure thought to be secondary to dehydration and medications. He was followed by nephrology here in the hospital and his creatinine peaked in the mid 3 range. It is been trending down and on the day of discharge is 2.34. The patient was aggressively hydrated and overall has done quite well. The patient's urine culture was negative and he has completed a course of IV antibiotics. He was seen by gastroenterology who recommended starting Questran and taking Imodium. The patient has had some improvement in his output since that time. The patient has developed thrombocytosis that is thought to be reactive at this point. I did discuss the patient with Dr. David Eugene on the day of discharge and it is felt that he is stable. He will follow-up with Dr. Veronica Lewis next week. At this point maximum hospital benefits been reached. The patient will be discharged to home today in stable condition. Physical Exam Vital Signs: Temp Pulse Resp BP Pulse Ox 98.4 F 52 L 17 125/71 99 06/13/16 07:39 06/13/16 07:39 06/13/16 07:39 06/13/16 07:39 06/13/16 07:39 Intake & Output 06/12/16 06/13/16 06/14/16 06:59 06:59 06:59 Intake Total 4196 5710 Output Total 1400 3725 Balance 2796 1984 General appearance: PRESENT: no acute distress, well-developed, well-nourished Head exam: PRESENT: atraumatic, normocephalic Mouth exam: PRESENT: moist, tongue midline Respiratory exam: PRESENT: clear to auscultation luisa. ABSENT: rales, rhonchi, wheezes Cardiovascular exam: PRESENT: RRR. ABSENT: diastolic murmur, rubs, systolic murmur GI/Abdominal exam: PRESENT: normal bowel sounds, soft, other - He has an ileostomy with brown liquid stool in the bag.. ABSENT: distended, guarding, mass, organolmegaly, rebound, tenderness Extremities exam: PRESENT: full ROM. ABSENT: calf tenderness, clubbing, pedal edema Musculoskeletal exam: PRESENT: ambulatory Neurological exam: PRESENT: alert, awake, oriented to person, oriented to place , oriented to time, oriented to situation, CN II-XII grossly intact. ABSENT: motor sensory deficit Skin exam: PRESENT: dry, intact, warm. ABSENT: cyanosis, rash Results Laboratory Results: 06/13/16 11:39 06/13/16 05:17 06/12/16 06/13/16 06/13/16 17:50 05:17 11:39 WBC 10.6 H RBC 5.39 Hgb 12.5 L Hct 40.5 MCV 75 L MCH 23.2 L MCHC 30.8 L RDW 17.3 H Plt Count 923 H Seg Neutrophils % Not Reportable Lymphocytes % Not Reportable Monocytes % Not Reportable Eosinophils % Not Reportable Basophils % Not Reportable Absolute Neutrophils Not Reportable Absolute Lymphocytes Not Reportable Absolute Monocytes Not Reportable Absolute Eosinophils Not Reportable Absolute Basophils Not Reportable Sodium 141.0 Potassium 5.1 H Chloride 105 Carbon Dioxide 22 Anion Gap 14 BUN 15 Creatinine 2.34 H Est GFR ( Amer) 37 L Est GFR (Non-Af Amer) 31 L Glucose 86 Calcium 9.0 Magnesium 1.8 Urine Color COLORLESS Urine Appearance CLEAR Urine pH 6.0 Ur Specific [place] 1.004 Urine Protein NEGATIVE Urine Glucose (UA) NEGATIVE Urine Ketones NEGATIVE Urine Blood SMALL H Urine Nitrite NEGATIVE Ur Leukocyte Esterase SMALL H Urine WBC (Auto) 11 Urine RBC (Auto) 2 Impressions: Abdomen/Pelvis CT 05/29/16 07:35 IMPRESSION: STABLE APPEARANCE OF THE ABDOMEN AND PELVIS. EXTENSIVE SURGICAL CHANGES. APPARENTLY LOCULATED FLUID COLLECTIONS INTERSPERSED AMONG THE BOWEL LOOPS HAVE A SIMILAR APPEARANCE TO THE PRIOR STUDIES. NO DEFINITE ACUTE FINDINGS. Renal Ultrasound 06/03/16 00:00 IMPRESSION: 1. Echogenic kidneys consistent with medical renal disease. 2. Free fluid surrounding the left kidney. Chest X-Ray 06/12/16 15:30 IMPRESSION: There appears to be of minimal right pleural effusion compared to the earlier study. No acute pulmonary disease is seen. Qualifiers PATEINT BEING DISCHARGED WITH ANY OF THE FOLLOWING DIAGNOSIS?: No Plan Discharge Plan: The patient will eat discharged home today with close outpatient follow-up by Dr. Lewis. He will keep his regularly scheduled appointment with his primary care provider. Time Spent: Greater than 30 Minutes
[2016-06-13 14:29] VITALS: BP 137/84
[2016-06-17 08:23] LABS: PATH REVIEW PATHOLOGIST REVIEWED
== END 2016-06-13 15:15 | disposition home or self-care (01) | DRG 690 ==
LOC: ER 06:33 → EH 13:24 → UNDOADMIN 13:24 → EH 13:50 → 5 19:05
PROVIDERS: ADMIT Family Medicine; ATTEND Family Medicine
DX: N39.0 Urinary tract infection, site not specified (principal); N17.9 Acute kidney failure, unspecified; C18.9 Malignant neoplasm of colon, unspecified; C78.7 Secondary malignant neoplasm of liver and intrahepatic bile duct; F11.20 Opioid dependence, uncomplicated; K56.7 Ileus, unspecified; Z93.2 Ileostomy status; E83.42 Hypomagnesemia; D63.8 Anemia in other chronic diseases classified elsewhere; D47.3 Essential (hemorrhagic) thrombocythemia; E86.0 Dehydration; T36.8X5A Adverse effect of other systemic antibiotics, initial encounter; I95.89 Other hypotension; I10 Essential (primary) hypertension; R31.9 Hematuria, unspecified; Z90.81 Acquired absence of spleen; Z79.899 Other long term (current) drug therapy; Z90.49 Acquired absence of other specified parts of digestive tract; Z79.891 Long term (current) use of opiate analgesic
CPT/HCPCS: 36415; 71010; 74177; 76775; 80048; 80053; 80202; 81001; 82565; 83605; 83690; 83735; 85025; 85027; 87040; 87077; 87086; 87186; 96365; 96375; 96376; 99285; J1170; J1200; J1644; J1885; J1956; J2270; J2543; J2765; J3370; J3475; J3490; J7030; J7060; S0119

== ENCOUNTER 2016-08-04 14:29 | Inpatient (IN) | payer MEDICAID ==
--- NOTE | 2016-08-04 16:40 | ER Document Report ---
ED Medical Screen (RME) - General Chief Complaint: Abdominal Pain Stated Complaint: ABDOMINAL PAIN Time Seen by Provider: 08/04/16 16:38 Mode of Arrival: Wheelchair Information source: Patient TRAVEL OUTSIDE OF THE [place] IN LAST 30 DAYS: No - HPI Patient complains to provider of: Abdominal pain with nausea and vomiting Notes: 08/04/16 16:39 Patient is a 41-year-old male with a history of colon cancer abdominal surgeries and an ileostomy, who just recently completed a course of chemotherapy on Thursday, presents to the emergency room complaining of abdominal pain, nausea and vomiting, vomiting a small amount of blood, fever, symptoms started over the past 2 days - Related Data Allergies/Adverse Reactions: No Known Allergies Allergy (Verified 08/04/16 14:39) Past Medical History - Past Medical History Cardiac Medical History: Reports: Hx Hypertension Pulmonary Medical History: Denies: Hx Tuberculosis Renal/ Medical History: Denies: Hx Peritoneal Dialysis Malignancy Medical History: Reports Hx Colorectal Cancer - With ileostomy placement. GI Medical History: Reports: Hx Colonoscopy Past Surgical History: Reports: Hx Abdominal Surgery - colon resection, Hx Appendectomy, Hx Bowel Surgery - Partial bowel resection, partial splenectomy, Hx Cholecystectomy, Hx Genitourinary Surgery - partial bladder removel per pt., Hx Ileostomy - Immunizations Hx Diphtheria, Pertussis, Tetanus Vaccination: No Physical Exam - Vital signs Vitals: Temp Pulse Resp BP Pulse Ox 100.9 F H 93 14 119/77 95 08/04/16 14:39 08/04/16 14:39 08/04/16 14:39 08/04/16 14:39 08/04/16 14:39 Course - Vital Signs Vital signs: Temp Pulse Resp BP Pulse Ox 100.9 F H 93 14 119/77 95 08/04/16 14:39 08/04/16 14:39 08/04/16 14:39 08/04/16 14:39 08/04/16 14:39
[2016-08-04 17:34] LABS: HEMATOCRIT 39.8 % (37.9-51.0); HEMOGLOBIN 12.5 g/dL (13.5-17.0); HGB HCT DIFFERENCE -2.3; MEAN CORPUSCULAR HEMOGLOBIN 23.8 pg (27.0-33.4); MEAN CORPUSCULAR HGB CONC 31.3 g/dL (32.0-36.0); MEAN CORPUSCULAR VOLUME 76 fl (80-97); RED BLOOD COUNT 5.24 10^6/uL (4.35-5.55); RED CELL DISTRIBUTION WIDTH 17.2 % (11.5-14.0); WHITE BLOOD COUNT 19.6 10^3/uL (4.0-10.5)
[2016-08-04 17:45] LABS: APPEARANCE,URINE SLIGHTLY-CLOUDY; BILIRUBIN,URINE NEGATIVE (NEGATIVE); GLUCOSE, URINE NEGATIVE (NEGATIVE); KETONES,URINE 80 mg/dL (NEGATIVE); LEUKOCYTE ESTERASE,URINE NEGATIVE (NEGATIVE); NITRITE,URINE NEGATIVE (NEGATIVE); PROTEIN,URINE 100 mg/dL (NEGATIVE); URINE SPECIFIC GRAVITY 1.027; UROBILINOGEN,URINE NEGATIVE mg/dL (<2.0)
[2016-08-04 17:55] LABS: BAND NEUTROPHILS % (MANUAL) 2 % (3-5); BASOPHILS % (MANUAL) 0 % (0-2); EOSINOPHILS % (MANUAL) 0 % (0-6); LYMPHOCYTES % (MANUAL) 6 % (13-45); TOTAL CELLS COUNTED 100
[2016-08-04 17:59] LABS: ANISOCYTOSIS 1+; BURR CELLS SLIGHT; HYPOCHROMASIA 2+; MICROCYTOSIS 2+; OVALOCYTES SLIGHT; POIKILOCYTOSIS 2+; SCHISTOCYTES SLIGHT; TARGET CELLS SLIGHT
[2016-08-04 18:01] LABS: ALANINE AMINOTRANSFERASE 31 U/L (21-72); ALBUMIN 3.9 g/dL (3.5-5.0); ALKALINE PHOSPHATASE 54 U/L (38-126); ANION GAP 14 (5-19); ASPARTATE AMINO TRANSFERASE 24 U/L (17-59); BILIRUBIN,DIRECT 0.6 mg/dL (0.0-0.4); BILIRUBIN,TOTAL 1.9 mg/dL (0.2-1.3); BLOOD UREA NITROGEN 12 mg/dL (7-20); CALCIUM 9.1 mg/dL (8.4-10.2); CARBON DIOXIDE 26 mmol/L (22-30); CHLORIDE 94 mmol/L (98-107); CREATININE RESULT 0.76 mg/dL (0.52-1.25); GLUCOSE 96 mg/dL (75-110); LIPASE 17.2 U/L (23-300); POTASSIUM 3.7 mmol/L (3.6-5.0); SODIUM 134.3 mmol/L (137-145); TOTAL PROTEIN 7.5 g/dL (6.3-8.2)
--- NOTE | 2016-08-04 18:26 | RADIOLOGY REPORT (SQ) ---
EXAM DESCRIPTION: CT ABD/PELVIS WITH IV ONLY COMPLETED DATE/TIME: 08/04/2016 5:35 pm REASON FOR STUDY: abd pain COMPARISON: None. TECHNIQUE: CT scan of the abdomen and pelvis performed using helical scanning technique with dynamic intravenous contrast injection. No oral contrast. Images reviewed with lung, soft tissue, and bone windows. Reconstructed coronal and sagittal MPR images reviewed. Delayed images for evaluation of the urinary system also acquired. All images stored on PACS. All CT scanners at this facility use dose modulation, iterative reconstruction, and/or weight based d osing when appropriate to reduce radiation dose to as low as reasonably achievable (ALARA). [facility]: Dose Right [facility]: CareDose [facility]: Dose Right [facility]: Teradose 4D [facility]: Vuzit CONTRAST TYPE AND DOSE: contrast/concentration: Isovue 370.00 mg/ml; Total Contrast Delivered: 83.0 ml; Total Saline Delivered: 68.0 ml RENAL FUNCTION: Not recorded RADIATION DOSE: 15.75. LIMITATIONS: None. FINDINGS: LOWER CHEST: No significant findings. No nodules or infiltrates. LIVER: Normal size. No masses or dilated ducts. SPLEEN: Normal size. No focal lesions. PANCREAS: No masses. No significant calcifications. No adjacent inflammation or peripancreatic fluid collections. Pancreatic duct not dilated. GALLBLADDER: Surgically absent ADRENAL GLANDS: No significant masses or asymmetry. RIGHT KIDNEY AND URETER: No solid masses. No significant calcifications. No hydronephrosis or hyd roureter. LEFT KIDNEY AND URETER: No solid masses. No significant calcifications. No hydronephrosis or hydr oureter. AORTA AND VESSELS: No aneurysm. No dissection. Renal arteries, SMA, celiac without stenosis. RETROPERITONEUM: No retroperitoneal adenopathy, hemorrhage or masses. BOWEL AND PERITONEAL CAVITY: There is been least partial resection of the colon. An ostomy is presen t in the right lower quadrant. There are loculated pockets of fluid amongst the bowel loops. This a ppearance is stable. APPENDIX: Surgically absent. PELVIS: The urinary bladder is normal. ABDOMINAL WALL: An ostomy is present the right lower quadrant. BONES: No significant or acute findings. OTHER: No other significant finding. IMPRESSION: There are surgical changes and there are loculated pockets of fluid among the bowel loop s. No acute abnormality is seen. TECHNICAL DOCUMENTATION: JOB ID: [id number] Quality ID # [id number]: Final reports with documentation of one or more dose reduction techniques (e.g., Au tomated exposure control, adjustment of the mA and/or kV according to patient size, use of iterative reconstruction technique) 2010 [employer]- All Rights Reserved
[2016-08-04] MEDS ORDERED: HYDROMORPHONE HCL INJ/PF 2 MG/ML AMPULE IV ONE (18:34)
[2016-08-04] MEDS ORDERED: ONDANSETRON HCL INJ/PF 4 MG/2 ML SDV IV ONE (18:35)
[2016-08-04] MEDS ORDERED: NORMAL SALINE 1000 ML 1,000 ML IV ONE (18:35)
--- NOTE | 2016-08-04 18:39 | ER Document Report ---
ED General - General Chief Complaint: Abdominal Pain Stated Complaint: ABDOMINAL PAIN Time Seen by Provider: 08/04/16 16:38 Mode of Arrival: Wheelchair Notes: Patient is a 41-year-old male with past medical history of stage IV metastatic colon cancer, currently on chemotherapy which she last received 3 days ago who presents with 24 hours of progressively worsening diffuse abdominal pain with associated vomiting and increased ostomy output. States he has had similar episodes in the past with intestinal inflammation in the setting of chemotherapy. He did have a fever today. The pain is described as a diffuse, cramping, severe pain. Nothing improves or worsens his pain. He was referred to the emergency department by his primary doctor. Denies any melena or hematochezia. TRAVEL OUTSIDE OF THE [place] IN LAST 30 DAYS: No - Related Data Allergies/Adverse Reactions: No Known Allergies Allergy (Verified 08/04/16 14:39) Past Medical History - General Information source: Patient - Social History Smoking Status: Never Smoker Frequency of alcohol use: None Drug Abuse: None Lives with: Family Family History: Reviewed & Not Pertinent Patient has suicidal ideation: No Patient has homicidal ideation: No - Past Medical History Cardiac Medical History: Reports: Hx Hypertension Pulmonary Medical History: Denies: Hx Tuberculosis Renal/ Medical History: Denies: Hx Peritoneal Dialysis Malignancy Medical History: Reports Hx Colorectal Cancer - With ileostomy placement. GI Medical History: Reports: Hx Colonoscopy Past Surgical History: Reports: Hx Abdominal Surgery - colon resection, Hx Appendectomy, Hx Bowel Surgery - Partial bowel resection, partial splenectomy, Hx Cholecystectomy, Hx Genitourinary Surgery - partial bladder removel per pt., Hx Ileostomy - Immunizations Hx Diphtheria, Pertussis, Tetanus Vaccination: No Hx Pneumococcal Vaccination: 01/16/13 Review of Systems - Review of Systems Notes: Constitutional: Negative for fever. HENT: Negative for sore throat. Eyes: Negative for visual changes. Cardiovascular: Negative for chest pain. Respiratory: Negative for shortness of breath. Gastrointestinal: Positive for abdominal pain, vomiting and diarrhea. Genitourinary: Negative for dysuria. Musculoskeletal: Negative for back pain. Skin: Negative for rash. Neurological: Negative for headaches, weakness or numbness. 10 point ROS negative except as marked above and in HPI. Physical Exam - Vital signs Vitals: Temp Pulse Resp BP Pulse Ox 100.9 F H 93 14 119/77 95 08/04/16 14:39 06/19/17 14:39 08/04/16 14:39 08/04/16 14:39 08/04/16 14:39 Interpretation: Febrile Notes: PHYSICAL EXAMINATION: GENERAL: Appears mildly uncomfortable but no acute distress HEAD: Atraumatic, normocephalic. EYES: Pupils equal round and reactive to light, extraocular movements intact, sclera anicteric, conjunctiva are normal. ENT: nares patent, oropharynx clear without exudates. Moderately dry mucous membranes. NECK: Normal range of motion, supple without lymphadenopathy LUNGS: Breath sounds clear to auscultation bilaterally and equal. No wheezes rales or rhonchi. HEART: Regular rate and rhythm without murmurs ABDOMEN: Soft, diffuse mild tenderness to palpation without rebound or guarding. Right lower quadrant ileostomy with liquid, brown green output EXTREMITIES: Normal range of motion, no pitting or edema. No cyanosis. NEUROLOGICAL: No focal neurological deficits. Moves all extremities spontaneously and on command. PSYCH: Normal mood, normal affect. SKIN: Warm, Dry, normal turgor, no rashes or lesions noted. Course - Re-evaluation Re-evalutation: 08/04/16 18:38 Patient presents with fever, leukocytosis with neutorphilic predominance, last chemo 3 days ago. He has diffuse abdominal pain without any focal rebound or guarding. No rigidity. He has a very watery, greenish stool output. He also has had active vomiting. CT scan of the abdomen pelvis did not demonstrate any acute pathology. Fluid-filled bowel loops again noted but this noted to be a chronic finding. Patient does meet SIRS criteria given his fever, leukocytosis as well as his neutrophilic predominance. He does appear somewhat clinically dehydrated and his labs support this with an elevated urine specific gravity, hyponatremia and hypochloremia. However, his acute kidney injury from prior has resolved. I have discussed this case with the oncologist fire protection designer Dr. Graham who is in agreement with admission to the hospitalist service. He has requested a C. difficile toxin assay which I think is appropriate given patient' s clinical symptoms and history. Will also begin broad-spectrum antibiotics including vancomycin, Flagyl, and cefepime given that patient is actively on chemotherapy and presents with a fever and leukocytosis. - Vital Signs Vital signs: Temp Pulse Resp BP Pulse Ox 100.9 F H 93 14 119/77 95 06/19/17 14:39 08/04/16 14:39 08/04/16 14:39 08/04/16 14:39 08/04/16 14:39 - Laboratory Result Diagrams: 08/04/16 17:00 08/04/16 17:00 Laboratory results interpreted by me: 08/04/16 08/04/16 08/04/16 17:00 17:00 17:00 WBC 19.6 H Hgb 12.5 L MCV 76 L MCH 23.8 L MCHC 31.3 L RDW 17.2 H Seg Neuts % (Manual) 90 H Band Neutrophils % 2 L Lymphocytes % (Manual) 6 L Monocytes % (Manual) 2 L Abs Neuts (Manual) 18.0 H Sodium 134.3 L Chloride 94 L Total Bilirubin 1.9 H Direct Bilirubin 0.6 H Lipase 17.2 L Urine Protein 100 H Urine Ketones 80 H Urine Blood SMALL H - Diagnostic Test Radiology reviewed: Reports reviewed Discharge - Discharge Clinical Impression: SIRS (systemic inflammatory response syndrome), Ileostomy in place, High output ileostomy Colon cancer Qualifiers: Colon location: unspecified part of colon Qualified Code(s): C18.9 - Malignant neoplasm of colon, unspecified Condition: Fair Disposition: ADMITTED INPATIENT Admitting Provider: [facility] [place] [facility] Admitted: [facility]
[2016-08-04] MEDS ORDERED: VANCOMYCIN HCL INJ 1000 MG VIAL IV ONE ×2 (18:42→23:28)
[2016-08-04] MEDS ORDERED: CEFEPIME 2 GM/D5W RTU 50 ML IV ONE (18:42)
[2016-08-04] MEDS ORDERED: METRONIDAZOLE 500 MG/NS RTU 100 ML IV ONE (18:42)
[2016-08-04 22:37] LABS: ADD ON TESTING BLD IN LAB ACKNOWLEDGE
[2016-08-04 23:09] LABS: MAGNESIUM 1.6 mg/dL (1.6-2.3)
[2016-08-04] MEDS ORDERED: MORPHINE SULFATE 10 MG/ML INJ IV PRN (23:09)
[2016-08-04] MEDS ORDERED: DEXTROSE 50%-WATER 25 GM/50 ML DISP.SYRIN IV PRN ×2 (23:22)
[2016-08-04] MEDS ORDERED: GLUCAGON,HUMAN RECOMB 1 MG INJ SUBCUT PRN (23:22)
[2016-08-04] MEDS ORDERED: DEXTROSE 40% GEL 15 GM TUBE PO PRN ×2 (23:22)
[2016-08-04] MEDS ORDERED: VANCOMYCIN HCL 0 MG in DEXTROSE 5%-WATER 250 ML IV NR (23:45)
[2016-08-05] MEDS ORDERED: NORMAL SALINE 1000 ML 1,000 ML IV ONE (00:15)
[2016-08-05] MEDS ORDERED: PIPERACILLIN/TAZOBACTAM 4.5 GM VIAL IV PRN (00:20)
--- NOTE | 2016-08-05 00:22 | PDOC H&P ---
History of Present Illness Admission Date/PCP: 08/04/16 20:50 Chintan Bailey Onc Veronica Lewis Patient complains of: abd pain History of Present Illness: JERE CRUZ is a 41 year old -Turkish male with a fairly complicated past medical history, reportedly diagnosed with colon cancer at the age of 23, and through multiple abdominal operations for cancer eventually metastatic to his liver, now has a permanent ileostomy, having undergone complete colectomy. Chemotherapy every 2 weeks. Last round 3 days ago. Presents to the emergency room complaining of generalized cramping abdominal pain, primarily in the left lower quadrant of his abdomen, without radiation. For the past 2-3 days. Movement makes it worse. He has had nausea and vomiting , along with fever and shaking chills. No change in his ileostomy output. No medication changes. No unusual oral intake. No antibiotic use for the past 4 months. No history of C. difficile infection. Hospitalized for 16 days approximately 4 months ago for somewhat similar symptoms in [place]. I have asked patient to attempt to find the hospital's name so we can request old records. Patient has been discussed with emergency room physician who evaluated the patient. Hospitalized on our service May 29- of this year with final diagnoses including high output ileostomy, acute renal failure, urinary tract infection. History and physical and discharge summary have been reviewed. Laboratory results are listed in [employer] and are reviewed. X-ray summary results are listed below, with full report(s) reviewed. 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 Disabled. No use of alcohol tobacco or illicit drugs. No known drug allergies. Home medications initially autopopulated into [employer] may not accurately reflect patient's true medications, dosages, and/or frequencies. automation tech to reconcile medications. Unfortunately, patient not certain of all medications/dosages/frequencies. REVIEW OF SYSTEMS: Constitutional: See history and present illness. Eyes: No vision complaints. ENT: No swallowing problems or complaints. Denies hearing loss. Pulmonary: No current complaints. Cardiovascular: No current complaints, including chest pain. Gastrointestinal: See history and present illness. Skin: No current complaints, including rashes. Hematologic: Denies easy bruising. Neurologic: No current complaints, including numbness or tingling. Musculoskeletal: No current or chronic joint complaints, such as arthritis. Psychiatric: Anxiety. Endocrine: No current complaints, including polyuria. Genitourinary: No current complaints, including dysuria. PHYSICAL EXAMINATION: 5 feet 9 inches tall. 77.3 kg. BMI 25.2 kg/m. Blood pressure 119/89. Pulse 95 and regular. 99% saturation on room air. Respirations are 21 and unlabored. Temperature 102.4 short while ago. Thin otherwise well-developed -Turkish male appearing approximately stated age. Appears not to feel very well. Complaining of abdominal pain. Otherwise, pleasant awake alert and cooperative. Skin is warm and dry. No grossly obvious evidence of rash in areas of skin examined. No subcutaneous nodules palpated. ENT: Hearing grossly normal to normal conversation. Tongue midline on protrusion pink and slightly tacky. Eyes: No scleral icterus. Pupils equal and reactive to light at 4 mm. Dewey-Humboldt conjunctivae. Neck is supple and nontender to gentle active range of motion and palpation. Midline trachea. No palpable thyroid nodule mass enlargement or tenderness. Lymphatic: No palpable cervical or clavicular nodes. Neck and lymphatic exams limited by patient body habitus. Psychiatric: Reasonable insight into acute and chronic medical issues. Oriented to time location and why here. Lungs: Auscultation reveals clear and equal breath sounds bilaterally. No use of accessory respiratory muscles. Cardiovascular: Heart regular rate and rhythm, without gallop murmur or rub. No carotid or abdominal aortic bruits. No ankle or pedal edema. Faintly palpable dorsalis pedis pulses. Abdomen:soft with rare bowel sounds. Diffuse tenderness throughout, with what feels to be guarding/peritoneal signs in particular in the left lower quadrant. Unable to adequately evaluate abdomen for masses or organomegaly due to pain. Dewey-Humboldt ileostomy in the right lower abdomen. Extremities: Feet are warm and dry. No calf tenderness to compression. No grossly obvious visual evidence of calf swelling. Gentle manipulation of lower extremities fails to reveal any obvious evidence of injury or instability to knees hips or ankles. Neurologic: Moves upper extremities grossly normally. Patellar reflexes absent. Absent Babinski. Light touch is intact at feet. Dorsiflexion and plantarflexion of feet 5 / 5 and symmetric. Past Medical History Cardiac Medical History: Denies: Congestive Heart Failure, DVT, Hyperlipidema, Hypertension, Pulmonary Embolism Pulmonary Medical History: Denies: Asthma, Chronic Obstructive Pulmonary Disease (COPD), Sleep Apnea, Tuberculosis EENT Medical History: Denies: Eyes, Ears, Throat Neurological Medical History: Denies: Hemorrhagic CVA, Ischemic CVA, Seizures Endocrine Medical History: Denies: Diabetes Mellitus Type 1, Diabetes Mellitus Type 2, Hyperthyroidism, Hypothyroidism Malignancy Medical History: Reports: Colorectal Cancer - Metastatic to liver, status post complete colectomy. Ileostomy. GI Medical History: Reports: Other - Colon cancer metastatic to liver. Denies: Cirrhosis, Gastroesophageal Reflux Disease, Hepatitis, Peptic Ulcer Disease Musculoskeltal Medical History: Denies: Arthritis Skin Medical History: Reports: None Psychiatric Medical History: Reports: General Anxiety Disorder Denies: Alcohol Dependency, Depression, Substance Abuse, Tobacco Dependency Hematology: Reports: None Infectious Medical History: Denies: Clostridium Difficile, Hepatitis B, Hepatitis C, Methicillin- Resistant Staph Aureus Past Surgical History Past Surgical History: Reports: Appendectomy, Cholecystectomy, Ileostomy, Other - Total colectomy for colorectal cancer. Social History Information Source: Patient, Emergency Med Personnel, [facility] Records Lives with: Family Smoking Status: Never Smoker Frequency of Alcohol Use: None Hx Recreational Drug Use: No Drugs: None Hx Prescription Drug Abuse: No - Advance Directive Resuscitation Status: Full Code Surrogate healthcare decision maker:: Father Family History Family History: Reviewed & Not Pertinent Parental Family History Reviewed: Yes - Father diabetic; mother healthy. Children Family History Reviewed: Yes - Healthy Sibling(s) Family History Reviewed.: Yes - Healthy Medication/Allergy Home Medications: Alprazolam [Alprazolam] 0.5 mg PO BIDP PRN 08/05/16 Hydromorphone HCl [Dilaudid] 8 mg PO Q4H 08/05/16 Loperamide HCl [Imodium A-D] 2 mg PO ASDIR PRN 08/05/16 Magnesium Oxide [Mag-Ox 400 mg Tablet] 800 mg PO TID 08/05/16 Allergies/Adverse Reactions: No Known Allergies Allergy (Verified 08/04/16 14:39) Physical Exam Vital Signs: Temp Pulse Resp BP Pulse Ox 102.4 F H 93 22 H 119/89 H 95 08/04/16 23:05 08/04/16 14:39 08/04/16 23:00 08/04/16 23:00 08/04/16 23:00 Results Impressions: Abdomen/Pelvis CT 08/04/16 16:39 IMPRESSION: There are surgical changes and there are loculated pockets of fluid among the bowel loops. No acute abnormality is seen. Assessment & Plan - Diagnosis (1) Generalized abdominal pain Is this a current diagnosis for this admission?: YesPlan: Physical exam findings consistent with peritonitis. At 11 PM on August 04, I spoke by phone with Dr. Perry. Patient discussed in detail. At 11:18 PM I spoke once again with Dr. Perry after he had reviewed the patient's chart and examined the patient. He and I both feel patient should be transferred urgently to tertiary center for likely emergency abdominal surgery. However, patient has refused transfer. At 11:40 PM, at the patient's bedside, with his ER nurse Angie present, I discussed in layperson's terms the rationale for urgent transfer to a tertiary center. However, patient once again refuses transfer. patient understands the risks associated with refusing transfer and possible urgent surgery to include but not be limited to , and/or stroke with permanent paralysis. Patient's conversation is lucid and appropriate. Patient again refuses transfer. Patient has signed a refusal of care treatment form. We will proceed with IMCU admission. IV fluids. N.p.o. Pain medication. Intravenous Pepcid for gastritis prophylaxis. Oncology consult. telephone discussion with patient registration supervisor oncologist, Dr. Sanders; he agrees with current plans and treatment. Antibiotics to consist of Zosyn along with intravenous vancomycin. Pharmacy to assist with dosing. I have strongly encouraged patient not to get out of bed without notifying staff , to avoid a fall with injury. Knee high SCDs for DVT prophylaxis, along with subcutaneous Lovenox. Impression and plans were discussed with patient who concurs. Patient states he will discuss need for transfer and probable emergency surgery with family tonight. Told him to notify nursing staff immediately if he changes his mind and agrees to transfer. He understands that "time is of the essence" ( patient words) in this matter. Time spent in evaluation and management of patient: 85 critical-care minutes. (2) Leukocytosis Qualifiers: Leukocytosis type: unspecified Qualified Code(s): D72.829 - Elevated white blood cell count, unspecified Is this a current diagnosis for this admission?: Yes (3) Nausea & vomiting Qualifiers: Vomiting type: unspecified Vomiting Intractability: non-intractable Qualified Code(s): R11.2 - Nausea with vomiting, unspecified Is this a current diagnosis for this admission?: Yes (4) Refusal of care by patient Is this a current diagnosis for this admission?: Yes (5) Ileostomy in place Is this a current diagnosis for this admission?: Yes (6) Maintenance chemotherapy Is this a current diagnosis for this admission?: Yes (7) Colon cancer metastasized to liver Is this a current diagnosis for this admission?: Yes - Inpatient Certification Based on my medical assessment, after consideration of the patient's comorbidities, presenting symptoms, or acuity I expect that the services needed warrant INPATIENT care.: Yes I certify that my determination is in accordance with my understanding of Medicare's requirements for reasonable and necessary INPATIENT services [42 CFR 412.3e].: Yes Medical Necessity: Need For IV Fluids, Need For Continuous Telemetry Monitoring , Need for Pain Control, Need for IV Antibiotics, Risk of Diagnosis Which Will Require Inpatient Eval/Care/Monitoring Post Hospital Care: D/C or Transfer Summary
[2016-08-05] MEDS ORDERED: MAGNESIUM SULFATE/D5W 1 GM/100 ML RTUPB IV ONE (00:30)
[2016-08-05] MEDS ORDERED: POTASSI CL 20 MEQ/50 ML RIDER 20 MEQ/50 ML RTUPB IV ONE (00:30)
[2016-08-05] MEDS: MORPHINE SULFATE 10 MG/ML INJ IV PRN ×2 (02:06→06:54)
[2016-08-05] MEDS: ACETAMINOPHEN 325 MG TABLET PO PRN ×2 (02:31→13:10)
[2016-08-05] MEDS: NORMAL SALINE 1000 ML 1,000 ML IV PRN ×2 (02:35→20:47)
[2016-08-05] MEDS ORDERED: PIPERACILLIN/TAZOBACTAM 4.5 GM VIAL IV ONE (06:53)
[2016-08-05] MEDS: PIPERACILLIN SODIUM/TAZOBACTAM 4.5 GM in NORMAL SALINE 100 ML IV SCH ×4 (06:54→23:06)
[2016-08-05 07:14] LABS: HEMOGLOBIN 11.4 g/dL (13.5-17.0); HGB HCT DIFFERENCE -2.8; MEAN CORPUSCULAR HEMOGLOBIN 23.7 pg (27.0-33.4); MEAN CORPUSCULAR HGB CONC 30.7 g/dL (32.0-36.0); MEAN CORPUSCULAR VOLUME 77 fl (80-97); RED BLOOD COUNT 4.79 10^6/uL (4.35-5.55); RED CELL DISTRIBUTION WIDTH 17.1 % (11.5-14.0)
[2016-08-05 07:30] LABS: ALANINE AMINOTRANSFERASE 29 U/L (21-72); ALBUMIN 2.9 g/dL (3.5-5.0); ALKALINE PHOSPHATASE 54 U/L (38-126); ANION GAP 9 (5-19); ASPARTATE AMINO TRANSFERASE 17 U/L (17-59); BILIRUBIN,DIRECT 0.3 mg/dL (0.0-0.4); BILIRUBIN,TOTAL 1.4 mg/dL (0.2-1.3); BLOOD UREA NITROGEN 7 mg/dL (7-20); CALCIUM 8.3 mg/dL (8.4-10.2); CARBON DIOXIDE 27 mmol/L (22-30); CHLORIDE 97 mmol/L (98-107); CREATININE RESULT 0.79 mg/dL (0.52-1.25); GLUCOSE 79 mg/dL (75-110); POTASSIUM 3.9 mmol/L (3.6-5.0); SODIUM 132.9 mmol/L (137-145); TOTAL PROTEIN 6.1 g/dL (6.3-8.2)
[2016-08-05 07:52] LABS: BASOPHILS % (MANUAL) 0 % (0-2); EOSINOPHILS % (MANUAL) 0 % (0-6); LYMPHOCYTES % (MANUAL) 7 % (13-45); TOTAL CELLS COUNTED 100
[2016-08-05 07:53] LABS: ANISOCYTOSIS 1+; MICROCYTOSIS SLIGHT; OVALOCYTES SLIGHT; POIKILOCYTOSIS 1+; TOXIC GRANULATION 2+; TOXIC VACUOLATION PRESENT
[2016-08-05 07:54] LABS: HYPOCHROMASIA 1+; SCHISTOCYTES SLIGHT; TARGET CELLS 2+
--- NOTE | 2016-08-05 07:55 | CONSULTATION REPORT E ---
Consultation Report NAME: JERE CRUZ : 1975 AGE: 41Y DATE: 08/04/2016 308 A TO: MINGO PERRY M.D. FROM: NORBERTO LOPEZ M.D. Requesting Physician TIME SEEING THE PATIENT: Approximately 11:30 p.m. CHIEF COMPLAINT: Abdominal pain. REPORT OF CONSULTATION: The patient is a 41-year-old male with a known history of metastatic colon carcinoma, currently on bi-weekly chemotherapy under the direction of JHONNY Conner. The patient initially underwent what sounds like near total colectomy, ileostomy, [facility] approximately 11 years ago. The patient has battled several episodes of small bowel obstruction nonoperatively. The patient comes to the Emergency Department via ground rescue complaining of acute onset abdominal pain, mostly in the lower quadrant with decreased ileostomy output, but primarily due to decreased p.o. intake. Several episodes of nausea and vomiting prior to arrival and once in the Emergency Department. He was found to be febrile. A CT scan of the abdomen and pelvis without oral contrast shows multiple loculated fluid pockets, which were felt to be chronic, otherwise the CT scan was somewhat limited in its diagnostic value. The patient was evaluated by Dr. Perry and felt to have peritoneal signs on exam and may require exploratory surgery. Past medical and surgical history can be found in the history and physical document as provided by Dr. Lopez. REVIEW OF SYSTEMS: Constitutional: As per HPI. Eyes: Patient denies. Cardiovascular: Patient denies gastrointestinal, as per HPI. PHYSICAL EXAM: VITAL SIGNS: Heart rate 80, blood pressure 119/80. GENERAL: A thin, male speaking mostly with his eyes closed. In moderate distress. SKIN: Warm and dry. EARS: No external deformities. NECK: No adenopathy. LUNGS: Slightly diminished in the base bilaterally. HEART: Without murmur or gallop. ABDOMEN: Flat, midline scar, well healed, no hernia. Right lower quadrant ileostomy with some edema. There are small bowel contents in the receptacle. The abdomen is diffusely tender with guarding. EXTREMITIES: Upper and lower extremities without gross deformity. LABORATORY PROFILE: He has a white blood cell count of 19,000, hemoglobin of 12.5. Electrolytes showed sodium 134, total bilirubin of 1.9, lipase of 17. IMPRESSION: 1. Acute abdominal pain of unclear etiology associated with leukocytosis; highly suspicious for an intraabdominal sepsis. 2. History of metastatic colon carcinoma status post colectomy and permanent ileostomy currently on maintenance chemotherapy. RECOMMENDATIONS: 1. I spoke with the patient regarding my concerns that he has an abdomen consistent with an acute intraabdominal problem and may very well benefit from exploratory surgery. He was not too enthused about that. I did discuss this with Dr. Devi last p.m. as well. 2. Given the limited resources at [facility], including surgical expertise, etc., I felt that transferring to a tertiary care level institution was in the patient's best interest. I discussed this with Dr. Devi, who discussed this with the patient. However, he was not interested in leaving [facility]. 3. The patient was admitted for IV fluids and antibiotics and further evaluation early this morning. DICTATING PHYSICIAN: MINGO PERRY M.D. [id number] PHY#: [id number] ID: [id number] JOB#: [id number] ACCT: [id number] cc:MINGO PERRY M.D. > MTDD
--- NOTE | 2016-08-05 07:55 | PDOC CONSULTATION ---
Consultation Consult Date: 08/05/16 Attending physician:: NORBERTO OJEDA Consult reason:: Known history of stage IV mucinous colorectal adenocarcinoma, currently being treated in [facility], Dr. Veronica Lewis,here with peritonitis History of Present Illness Admission Date/PCP: 08/04/16 23:52 Patient complains of: Abdominal pain, fever History of Present Illness: 41-year-old male with known history of stage IV mucinous adenocarcinoma. There is history from previous notes here, he was originally diagnosed in 2004, he was originally treated at [facility], he had surgery at [facility] and [place], when he was diagnosed he did have stage IV mucinous adenocarcinoma, he was treated with an extensive resection as well as HIPEC. He was then treated over the last 7-8 years with a multitude of chemotherapy agents, he has received FOLFOX, Avastin, Xeloda, and currently he is on receiving that every 2 weeks, FOLFIRI + AVASTIN he recently had the pump removed this past Thursday. About 2 days ago he began experiencing increasing abdominal pain, fevers, nausea and vomiting, ultimately the abdominal pain got too severe and he was brought to the ER. He was seen overnight and he does have some peritoneal signs, today when I examined him he certainly is tender in the left abdominal area. He still having ostomy output so he is not obstructed. He was placed on broad-spectrum antibiotics with Zosyn and vancomycin. He is getting Dilaudid for pain and that is what he takes at home. Past Medical History Cardiac Medical History: Denies: Congestive Heart Failure, DVT, Hyperlipidema, Hypertension, Pulmonary Embolism Pulmonary Medical History: Denies: Asthma, Chronic Obstructive Pulmonary Disease (COPD), Sleep Apnea, Tuberculosis EENT Medical History: Denies: Eyes, Ears, Throat Neurological Medical History: Denies: Hemorrhagic CVA, Ischemic CVA, Seizures Endocrine Medical History: Denies: Diabetes Mellitus Type 1, Diabetes Mellitus Type 2, Hyperthyroidism, Hypothyroidism Malignancy Medical History: Reports: Colorectal Cancer - Metastatic to liver, status post complete colectomy. Ileostomy. GI Medical History: Reports: Other - Colon cancer metastatic to liver. Denies: Cirrhosis, Gastroesophageal Reflux Disease, Hepatitis, Peptic Ulcer Disease Musculoskeltal Medical History: Denies: Arthritis Skin Medical History: Reports: None Psychiatric Medical History: Reports: General Anxiety Disorder Denies: Alcohol Dependency, Depression, Substance Abuse, Tobacco Dependency Hematology: Reports: None Infectious Medical History: Denies: Clostridium Difficile, Hepatitis B, Hepatitis C, Methicillin- Resistant Staph Aureus Past Surgical History Past Surgical History: Reports: Appendectomy, Cholecystectomy, Ileostomy, Other - Total colectomy for colorectal cancer. Social History Lives with: Family Smoking Status: Never Smoker Frequency of Alcohol Use: None Hx Recreational Drug Use: No Drugs: None Hx Prescription Drug Abuse: No - Advance Directive Resuscitation Status: Full Code Family History Family History: Reviewed & Not Pertinent Parental Family History Reviewed: Yes Children Family History Reviewed: Yes Sibling(s) Family History Reviewed.: Yes Medication/Allergy Home Medications: Alprazolam [Xanax 0.5 mg Tablet] 0.5 mg PO BID 05/29/16 Hydromorphone HCl [Dilaudid] 8 mg PO Q4HP PRN 05/29/16 Promethazine HCl [Phenergan] 25 mg PO Q6 05/29/16 Zolpidem Tartrate [Ambien 5 mg Tablet] 5 mg PO HSP PRN 05/29/16 Cholestyramine/Aspartame [Questran Light 4 gm Packet] 4 gm PO MEALSHS #120 packet 06/13/16 Loperamide HCl [Imodium 2 mg Capsule] 2 mg PO Q6H capsule 06/13/16 Magnesium Oxide [Mag-Ox 400 mg Tablet] 800 mg PO TID #90 tablet 06/13/16 Allergies/Adverse Reactions: No Known Allergies Allergy (Verified 08/04/16 14:39) Review of Systems Constitutional: PRESENT: anorexia, chills, fatigue Gastrointestinal: PRESENT: abdominal pain, nausea, vomiting Integumentary: PRESENT: diaphoresis Neurological: ABSENT: abnormal gait, abnormal speech, confusion, dizziness, focal weakness, syncope Physical Exam Vital Signs: Temp Pulse Resp BP Pulse Ox 102.9 F H 94 20 114/69 97 08/05/16 04:16 08/05/16 04:16 08/05/16 04:16 08/05/16 04:16 08/05/16 04:16 Intake & Output 08/04/16 08/05/16 08/06/16 06:59 06:59 06:59 Weight 77.3 kg General appearance: PRESENT: mild distress Head exam: PRESENT: atraumatic Mouth exam: PRESENT: dry mucosa Respiratory exam: PRESENT: clear to auscultation luisa. ABSENT: rales, rhonchi, wheezes GI/Abdominal exam: PRESENT: guarding, rigid, tenderness Rectal exam: PRESENT: deferred Neurological exam: PRESENT: alert, awake, oriented to person, oriented to place , oriented to time, oriented to situation, CN II-XII grossly intact. ABSENT: motor sensory deficit Results Laboratory Results: 08/05/16 06:48 Seg Neutrophils % Not Reportable Lymphocytes % Not Reportable Monocytes % Not Reportable Eosinophils % Not Reportable Basophils % Not Reportable Absolute Neutrophils Not Reportable Absolute Lymphocytes Not Reportable Absolute Monocytes Not Reportable Absolute Eosinophils Not Reportable Absolute Basophils Not Reportable Impressions: Abdomen/Pelvis CT 08/04/16 16:39 IMPRESSION: There are surgical changes and there are loculated pockets of fluid among the bowel loops. No acute abnormality is seen. Status: Image reviewed by me Assessment & Plan - Diagnosis (1) Peritonitis (acute) generalized Is this a current diagnosis for this admission?: YesPlan: He does appear that he does have peritonitis, he does have omental disease although per recent imaging done here all of his disease is stable, it does not appear he is progressing, he has been placed on broad-spectrum antibiotics, hospitalist team overnight had recommended transfer to a tertiary care center for consideration of surgical evaluation. The patient refused that and wants to be treated with medical management only at this point. We will continue with broad-spectrum antibiotics, I will discuss his case with hospitalist team. (2) Colon cancer metastasized to liver Is this a current diagnosis for this admission?: YesPlan: He does have colon cancer with liver metastasis as well as peritoneal metastasis , but are present liver metastasis is well controlled in the omental metastasis seems well controlled as well. He seems to be tolerating chemotherapy well, he seems to be doing well otherwise, so would make sense to be aggressive with medical management. He does not want any surgical management so it would be reasonable to continue care here with IV antibiotics and the hope that the peritonitis will resolve. I believe there is a reasonable chance that this would resolve and he can get back to systemic chemotherapy. - Time Time Spent: Greater than 70 Minutes Critical Time spent with patient: 35 or more minutes - Inpatient Certification Based on my medical assessment, after consideration of the patient's comorbidities, presenting symptoms, or acuity I expect that the services needed warrant INPATIENT care.: Yes I certify that my determination is in accordance with my understanding of Medicare's requirements for reasonable and necessary INPATIENT services [42 CFR 412.3e].: Yes Medical Necessity: Need for IV Antibiotics, Need for Surgery
[2016-08-05] MEDS: VANCOMYCIN HCL 1,000 MG in DEXTROSE 5%-WATER 250 ML IV SCH ×2 (08:51→17:46)
--- NOTE | 2016-08-05 10:23 | PROGRESS NOTE E ---
Progress Note NAME: JERE CRUZ : 1975 AGE: 41Y DATE: 08/05/2016 ROOM: 308 SUBJECTIVE: The patient's temperature is somewhat decreased to 100 degrees Fahrenheit. The rest of his vital signs are stable. His white count decreased from 19.6 yesterday to 17 today. His hemoglobin slightly decreased from 12.5 yesterday to 11.4 this morning. OBJECTIVE: On examination, he is pump and still operator in the left lower quadrant with rebound. However, he feels that his pains are slightly better today than yesterday. He has a history of colon cancer with mets to the liver and omentum and had colectomy with permanent ileostomy. I read the note of the oncologist. Patient also refuses to have any operations at this time and refuses to be transferred to a tertiary care facility because he feels his symptoms will improve with medical management. PLAN: Continue the medical therapy in the form of IV antibiotics, bowel rest and pain management. DICTATING PHYSICIAN: ERICKA OLIVO M.D. [id number] PHY#: [id number] ID: [id number] JOB#: [id number] ACCT: [id number] cc: >
[2016-08-05] MEDS: HYDROMORPHONE HCL INJ/PF 2 MG/ML AMPULE IV PRN ×5 (10:28→23:51)
[2016-08-05] MEDS: ENOXAPARIN SODIUM INJ 40 MG/0.4 ML DISP.SYRIN SUBCUT SCH (11:08)
[2016-08-05] MEDS: FAMOTIDINE INJ/PF 20 MG/2 ML SDV IV SCH ×2 (11:09→21:02)
--- NOTE | 2016-08-05 17:03 | PDOC PROGRESS REPORT ---
Subjective Progress Note for:: 08/05/16 Subjective:: Complains of lower abdominal pain. Reports it is improved from yesterday Physical Exam Vital Signs: Temp Pulse Resp BP Pulse Ox 100.4 F 92 20 109/67 98 08/05/16 15:45 08/05/16 15:45 08/05/16 15:45 08/05/16 15:45 08/05/16 15:45 Intake & Output 08/04/16 08/05/16 08/06/16 06:59 06:59 06:59 Weight 77.3 kg General appearance: PRESENT: no acute distress Eye exam: PRESENT: conjunctiva pink. ABSENT: scleral icterus Ear exam: PRESENT: normal external ear exam Mouth exam: PRESENT: moist, tongue midline Neck exam: ABSENT: JVD Respiratory exam: PRESENT: clear to auscultation luisa. ABSENT: rales, rhonchi, wheezes Cardiovascular exam: PRESENT: RRR. ABSENT: diastolic murmur, rubs, systolic murmur GI/Abdominal exam: PRESENT: normal bowel sounds, tenderness - Lower abdominal, other - Ostomy present in the lower abdomen. ABSENT: distended, guarding, mass , organolmegaly, rebound Extremities exam: ABSENT: calf tenderness, clubbing, pedal edema Neurological exam: PRESENT: alert, awake, oriented to person, oriented to place , oriented to time, oriented to situation, CN II-XII grossly intact. ABSENT: motor sensory deficit Psychiatric exam: PRESENT: appropriate affect Skin exam: PRESENT: dry, intact, warm. ABSENT: cyanosis, rash Results Laboratory Results: 08/05/16 06:48 08/05/16 06:48 08/05/16 08/05/16 06:48 06:48 WBC 17.0 H RBC 4.79 Hgb 11.4 L Hct 37.0 L MCV 77 L MCH 23.7 L MCHC 30.7 L RDW 17.1 H Plt Count 336 Seg Neutrophils % Not Reportable Lymphocytes % Not Reportable Monocytes % Not Reportable Eosinophils % Not Reportable Basophils % Not Reportable Absolute Neutrophils Not Reportable Absolute Lymphocytes Not Reportable Absolute Monocytes Not Reportable Absolute Eosinophils Not Reportable Absolute Basophils Not Reportable Sodium 132.9 L Potassium 3.9 Chloride 97 L Carbon Dioxide 27 Anion Gap 9 BUN 7 Creatinine 0.79 Est GFR ( Amer) > 60 Est GFR (Non-Af Amer) > 60 Glucose 79 Calcium 8.3 L Total Bilirubin 1.4 H AST 17 ALT 29 Alkaline Phosphatase 54 Total Protein 6.1 L Albumin 2.9 L Impressions: Abdomen/Pelvis CT 08/04/16 16:39 IMPRESSION: There are surgical changes and there are loculated pockets of fluid among the bowel loops. No acute abnormality is seen. Assessment & Plan - Diagnosis (1) SIRS (systemic inflammatory response syndrome) Is this a current diagnosis for this admission?: YesPlan: Patient has SIRS from his peritonitis. (2) Peritonitis (acute) generalized Is this a current diagnosis for this admission?: YesPlan: He is on Zosyn. He has been evaluated by general surgery who has recommended transfer to a tertiary care facility given his history. Patient refuses that and we will treat with IV antibiotics. (3) Colon cancer Qualifiers: Colon location: unspecified part of colon Qualified Code(s): C18.9 - Malignant neoplasm of colon, unspecified Is this a current diagnosis for this admission?: YesPlan: Is followed by Dr. Veronica Lewis of oncology in [place] - Time Time Spent with patient: 25-34 minutes - Inpatient Certification Medical Necessity: Need for IV Antibiotics
--- NOTE | 2016-08-05 17:20 | CONSULTATION REPORT E ---
Consultation Report NAME: JERE CRUZ : 1975 AGE: 41Y DATE: 08/05/2016 308 A TO: ERICKA OLIVO M.D. FROM: NORBERTO OJEDA M.D. Requesting Physician REASON FOR CONSULTATION: Patient with left lower quadrant pains and possible peritonitis. HISTORY OF PRESENT ILLNESS: This is a 41-year-old male who had a previous subtotal colectomy done about 11 years for a carcinoma of the colon. The patient claims he is having chemotherapy almost every 2-3 weeks and his cancer has been stable. He claims there is a small trace of liver metastasis but apparently has not gotten any bigger. Patient reminded me that I saw him in May of this year for partial bowel obstruction when the ileostomy stopped draining. I remember that I did a digital exam of the ileostomy and eventually the colostomy functioned. The patient had a CAT scan of the abdomen in the emergency room on 08/04/2016 which showed there are surgical changes with loculated pockets of fluid among the bowel loops. No other acute abnormality was noted. Patient has been complaining of lower abdominal pains over the past 2 days with some nausea. Colostomy has been draining well. DICTATING PHYSICIAN: REICKA OLIVO M.D. [id number] PHY#: [id number] ID: [id number] JOB#: [id number] ACCT: [id number] cc:ERICKA OLIVO M.D. >
[2016-08-06] MEDS: VANCOMYCIN HCL 1,000 MG in DEXTROSE 5%-WATER 250 ML IV SCH ×4 (01:18→23:22)
[2016-08-06] MEDS: HYDROMORPHONE HCL INJ/PF 2 MG/ML AMPULE IV PRN ×8 (03:12→23:54)
[2016-08-06] MEDS: NORMAL SALINE 1000 ML 1,000 ML IV PRN (03:15)
[2016-08-06] MEDS: ACETAMINOPHEN 325 MG TABLET PO PRN ×2 (04:26→15:32)
[2016-08-06 05:05] LABS: HEMATOCRIT 35.1 % (37.9-51.0); HEMOGLOBIN 10.8 g/dL (13.5-17.0); HGB HCT DIFFERENCE -2.7; MEAN CORPUSCULAR HEMOGLOBIN 23.5 pg (27.0-33.4); MEAN CORPUSCULAR HGB CONC 30.7 g/dL (32.0-36.0); MEAN CORPUSCULAR VOLUME 77 fl (80-97); RED BLOOD COUNT 4.59 10^6/uL (4.35-5.55); RED CELL DISTRIBUTION WIDTH 17.4 % (11.5-14.0); WHITE BLOOD COUNT 18.7 10^3/uL (4.0-10.5)
[2016-08-06] MEDS: PIPERACILLIN SODIUM/TAZOBACTAM 4.5 GM in NORMAL SALINE 100 ML IV SCH ×4 (05:20→23:22)
[2016-08-06 05:33] LABS: ANION GAP 9 (5-19); BLOOD UREA NITROGEN 5 mg/dL (7-20); CALCIUM 7.9 mg/dL (8.4-10.2); CARBON DIOXIDE 25 mmol/L (22-30); CHLORIDE 100 mmol/L (98-107); CREATININE RESULT 0.83 mg/dL (0.52-1.25); GLUCOSE 70 mg/dL (75-110); POTASSIUM 3.5 mmol/L (3.6-5.0); SODIUM 134.4 mmol/L (137-145)
--- NOTE | 2016-08-06 07:58 | PDOC PROGRESS REPORT ---
Subjective Progress Note for:: 08/06/16 Subjective:: Pt feeling much better, is able to sit up and walk, feels belly is much softer Physical Exam Vital Signs: Temp Pulse Resp BP Pulse Ox 101.2 F H 96 20 119/73 97 08/06/16 04:22 08/06/16 04:22 08/06/16 04:22 08/06/16 04:22 08/06/16 04:22 Intake & Output 08/05/16 08/06/16 08/07/16 06:59 06:59 06:59 Intake Total 4081 Output Total 2300 Balance 1781 Weight 77.3 kg 74.4 kg General appearance: PRESENT: no acute distress, well-developed, well-nourished Head exam: PRESENT: atraumatic, normocephalic Eye exam: PRESENT: conjunctiva pink, EOMI, PERRLA. ABSENT: scleral icterus Ear exam: PRESENT: normal external ear exam Mouth exam: PRESENT: moist, tongue midline Neck exam: ABSENT: carotid bruit, JVD, lymphadenopathy, thyromegaly Respiratory exam: PRESENT: clear to auscultation luisa. ABSENT: rales, rhonchi, wheezes Cardiovascular exam: PRESENT: RRR. ABSENT: diastolic murmur, rubs, systolic murmur Pulses: PRESENT: normal dorsalis pedis pul Vascular exam: PRESENT: normal capillary refill GI/Abdominal exam: PRESENT: other - abd softer still w. guarding on deep palpation Rectal exam: PRESENT: deferred Extremities exam: PRESENT: full ROM. ABSENT: calf tenderness, clubbing, pedal edema Neurological exam: PRESENT: alert, awake, oriented to person, oriented to place , oriented to time, oriented to situation, CN II-XII grossly intact. ABSENT: motor sensory deficit Psychiatric exam: PRESENT: appropriate affect, normal mood. ABSENT: homicidal ideation, suicidal ideation Skin exam: PRESENT: dry, intact, warm. ABSENT: cyanosis, rash Results Laboratory Results: 08/06/16 04:12 08/06/16 04:12 08/05/16 08/06/16 08/06/16 06:48 04:12 04:12 WBC 17.0 H 18.7 H RBC 4.79 4.59 Hgb 11.4 L 10.8 L Hct 37.0 L 35.1 L MCV 77 L 77 L MCH 23.7 L 23.5 L MCHC 30.7 L 30.7 L RDW 17.1 H 17.4 H Plt Count 336 340 Sodium 134.4 L Potassium 3.5 L Chloride 100 Carbon Dioxide 25 Anion Gap 9 BUN 5 L Creatinine 0.83 Est GFR ( Amer) > 60 Est GFR (Non-Af Amer) > 60 Glucose 70 L Calcium 7.9 L Impressions: Abdomen/Pelvis CT 08/04/16 16:39 IMPRESSION: There are surgical changes and there are loculated pockets of fluid among the bowel loops. No acute abnormality is seen. Assessment & Plan - Diagnosis (1) Peritonitis (acute) generalized Is this a current diagnosis for this admission?: YesPlan: Seems improved, con't medical management per hospitalist and surgicalist teams (2) Colon cancer metastasized to liver Is this a current diagnosis for this admission?: YesPlan: Futher rx planned as outpt, he is followed [place] Dr. [place] - Time Time Spent with patient: 35 or more minutes Critical Time spent with patient: 35 or more minutes - Inpatient Certification Based on my medical assessment, after consideration of the patient's comorbidities, presenting symptoms, or acuity I expect that the services needed warrant INPATIENT care.: Yes I certify that my determination is in accordance with my understanding of Medicare's requirements for reasonable and necessary INPATIENT services [42 CFR 412.3e].: Yes Medical Necessity: Need For IV Fluids, Need for IV Antibiotics, Need for Surgery
--- NOTE | 2016-08-06 11:46 | PDOC PROGRESS REPORT ---
Subjective Progress Note for:: 08/06/16 Subjective:: Complains of lower abdominal pain. Reports it is improving Physical Exam Vital Signs: Temp Pulse Resp BP Pulse Ox 98.5 F 81 16 111/77 100 08/06/16 08:06 08/06/16 08:06 08/06/16 08:06 08/06/16 08:06 08/06/16 08:06 Intake & Output 08/05/16 08/06/16 08/07/16 06:59 06:59 06:59 Intake Total 4081 Output Total 2300 Balance 1781 Weight 77.3 kg 74.4 kg General appearance: PRESENT: no acute distress Eye exam: PRESENT: conjunctiva pink. ABSENT: scleral icterus Mouth exam: PRESENT: moist, tongue midline Neck exam: ABSENT: JVD Respiratory exam: PRESENT: clear to auscultation luisa. ABSENT: rales, rhonchi, wheezes Cardiovascular exam: PRESENT: RRR. ABSENT: diastolic murmur, rubs, systolic murmur GI/Abdominal exam: PRESENT: normal bowel sounds, soft, tenderness - Lower tenderness but improved from yesterday, other - Ostomy in place. ABSENT: distended, guarding, mass, organolmegaly, rebound Extremities exam: ABSENT: calf tenderness, clubbing, pedal edema Neurological exam: PRESENT: alert, awake, oriented to person, oriented to place , oriented to time, oriented to situation, CN II-XII grossly intact. ABSENT: motor sensory deficit Psychiatric exam: PRESENT: appropriate affect Skin exam: PRESENT: dry, intact, warm. ABSENT: cyanosis, rash Results Laboratory Results: 08/06/16 04:12 08/06/16 04:12 08/06/16 08/06/16 04:12 04:12 WBC 18.7 H RBC 4.59 Hgb 10.8 L Hct 35.1 L MCV 77 L MCH 23.5 L MCHC 30.7 L RDW 17.4 H Plt Count 340 Sodium 134.4 L Potassium 3.5 L Chloride 100 Carbon Dioxide 25 Anion Gap 9 BUN 5 L Creatinine 0.83 Est GFR ( Amer) > 60 Est GFR (Non-Af Amer) > 60 Glucose 70 L Calcium 7.9 L Impressions: Abdomen/Pelvis CT 08/04/16 16:39 IMPRESSION: There are surgical changes and there are loculated pockets of fluid among the bowel loops. No acute abnormality is seen. Assessment & Plan - Diagnosis (1) SIRS (systemic inflammatory response syndrome) Is this a current diagnosis for this admission?: YesPlan: Patient has SIRS from his peritonitis. (2) Peritonitis (acute) generalized Is this a current diagnosis for this admission?: YesPlan: He is on Zosyn and vancomycin. Pain is improved from yesterday. We will advance him to a clear diet. (3) Colon cancer Qualifiers: Colon location: unspecified part of colon Qualified Code(s): C18.9 - Malignant neoplasm of colon, unspecified Is this a current diagnosis for this admission?: YesPlan: Is followed by Dr. Veronica Lewis of oncology in [place] - Time Time Spent with patient: 25-34 minutes - Inpatient Certification Medical Necessity: Need for IV Antibiotics
[2016-08-06] MEDS: FAMOTIDINE INJ/PF 20 MG/2 ML SDV IV SCH ×2 (12:11→21:31)
[2016-08-06] MEDS: ENOXAPARIN SODIUM INJ 40 MG/0.4 ML DISP.SYRIN SUBCUT SCH (12:12)
[2016-08-07] MEDS: HYDROMORPHONE HCL INJ/PF 2 MG/ML AMPULE IV PRN ×5 (03:00→21:04)
[2016-08-07 05:12] LABS: HEMATOCRIT 32.1 % (37.9-51.0); HEMOGLOBIN 9.8 g/dL (13.5-17.0); HGB HCT DIFFERENCE -2.7; MEAN CORPUSCULAR HEMOGLOBIN 23.5 pg (27.0-33.4); MEAN CORPUSCULAR HGB CONC 30.5 g/dL (32.0-36.0); MEAN CORPUSCULAR VOLUME 77 fl (80-97); RED BLOOD COUNT 4.16 10^6/uL (4.35-5.55); RED CELL DISTRIBUTION WIDTH 17.5 % (11.5-14.0); WHITE BLOOD COUNT 22.7 10^3/uL (4.0-10.5)
[2016-08-07] MEDS: NORMAL SALINE 1000 ML 1,000 ML IV PRN (05:12)
[2016-08-07] MEDS: PIPERACILLIN SODIUM/TAZOBACTAM 4.5 GM in NORMAL SALINE 100 ML IV SCH ×4 (05:12→23:20)
[2016-08-07] MEDS: VANCOMYCIN HCL 1,000 MG in DEXTROSE 5%-WATER 250 ML IV SCH ×2 (05:12→17:24)
[2016-08-07 05:36] LABS: ANION GAP 10 (5-19); BLOOD UREA NITROGEN 3 mg/dL (7-20); CALCIUM 7.7 mg/dL (8.4-10.2); CARBON DIOXIDE 27 mmol/L (22-30); CHLORIDE 97 mmol/L (98-107); CREATININE RESULT 0.83 mg/dL (0.52-1.25); GLUCOSE 80 mg/dL (75-110); SODIUM 134.4 mmol/L (137-145)
[2016-08-07 05:43] LABS: BAND NEUTROPHILS % (MANUAL) 1 % (3-5); BASOPHILS % (MANUAL) 1 % (0-2); EOSINOPHILS % (MANUAL) 0 % (0-6); LYMPHOCYTES % (MANUAL) 7 % (13-45); TOTAL CELLS COUNTED 100
[2016-08-07 05:44] LABS: HYPOCHROMASIA SLIGHT; POLYCHROMASIA SLIGHT; TOXIC VACUOLATION PRESENT
[2016-08-07 05:45] LABS: ANISOCYTOSIS 1+; BURR CELLS SLIGHT; MICROCYTOSIS SLIGHT; SCHISTOCYTES SLIGHT; TARGET CELLS SLIGHT
[2016-08-07] MEDS ORDERED: POTASSIUM CHLORIDE 20 MEQ/50 ML RTU IV SCH (06:00)
[2016-08-07] MEDS: ACETAMINOPHEN 325 MG TABLET PO PRN ×2 (06:13→13:38)
[2016-08-07] MEDS ORDERED: POTASSIUM CHLORIDE 10 MEQ TABLET.SA PO ONE (06:15)
--- NOTE | 2016-08-07 08:28 | PDOC PROGRESS REPORT ---
Subjective Progress Note for:: 08/07/16 Subjective:: Patient doing better but still had fever yesterday Physical Exam Vital Signs: Temp Pulse Resp BP Pulse Ox 100.6 F H 88 18 117/74 96 08/07/16 04:38 08/07/16 07:00 08/07/16 04:38 08/07/16 04:38 08/07/16 04:38 Intake & Output 08/06/16 08/07/16 08/08/16 06:59 06:59 06:59 Intake Total 4081 3160 Output Total 2300 2850 Balance 1781 310 Weight 74.4 kg 74 kg General appearance: PRESENT: no acute distress, well-developed, well-nourished Head exam: PRESENT: atraumatic, normocephalic Eye exam: PRESENT: conjunctiva pink, EOMI, PERRLA. ABSENT: scleral icterus Ear exam: PRESENT: normal external ear exam Mouth exam: PRESENT: moist, tongue midline Neck exam: ABSENT: carotid bruit, JVD, lymphadenopathy, thyromegaly Respiratory exam: PRESENT: clear to auscultation luisa. ABSENT: rales, rhonchi, wheezes Cardiovascular exam: PRESENT: RRR. ABSENT: diastolic murmur, rubs, systolic murmur Pulses: PRESENT: normal dorsalis pedis pul Vascular exam: PRESENT: normal capillary refill GI/Abdominal exam: PRESENT: normal bowel sounds, soft. ABSENT: distended, guarding, mass, organolmegaly, rebound, tenderness Rectal exam: PRESENT: deferred Extremities exam: PRESENT: full ROM. ABSENT: calf tenderness, clubbing, pedal edema Neurological exam: PRESENT: alert, awake, oriented to person, oriented to place , oriented to time, oriented to situation, CN II-XII grossly intact. ABSENT: motor sensory deficit Psychiatric exam: PRESENT: appropriate affect, normal mood. ABSENT: homicidal ideation, suicidal ideation Skin exam: PRESENT: dry, intact, warm. ABSENT: cyanosis, rash Results Laboratory Results: 08/07/16 04:20 08/07/16 04:20 08/07/16 08/07/16 08/07/16 04:20 04:20 04:20 WBC 22.7 H RBC 4.16 L Hgb 9.8 L Hct 32.1 L MCV 77 L MCH 23.5 L MCHC 30.5 L RDW 17.5 H Plt Count 369 Seg Neutrophils % Not Reportable Lymphocytes % Not Reportable Monocytes % Not Reportable Eosinophils % Not Reportable Basophils % Not Reportable Absolute Neutrophils Not Reportable Absolute Lymphocytes Not Reportable Absolute Monocytes Not Reportable Absolute Eosinophils Not Reportable Absolute Basophils Not Reportable Sodium 134.4 L Potassium 3.0 L* Chloride 97 L Carbon Dioxide 27 Anion Gap 10 BUN 3 L Creatinine 0.83 Est GFR ( Amer) > 60 Est GFR (Non-Af Amer) > 60 Glucose 80 Calcium 7.7 L Magnesium 1.7 Impressions: Abdomen/Pelvis CT 08/04/16 16:39 IMPRESSION: There are surgical changes and there are loculated pockets of fluid among the bowel loops. No acute abnormality is seen. Assessment & Plan - Diagnosis (1) Peritonitis (acute) generalized Is this a current diagnosis for this admission?: YesPlan: Seems better but unknown why he still had a spiking fever, seems a little bit down today, he is continued on IV antibiotics. Clinically he seems better from abdominal pain standpoint, was able to palpate a little bit deeper on physical exam, so I believe we can transition to full liquids. I went ahead and advanced his diet. (2) Colon cancer metastasized to liver Is this a current diagnosis for this admission?: YesPlan: Further treatment plan as an outpatient - Time Time Spent with patient: 35 or more minutes Critical Time spent with patient: 35 or more minutes
[2016-08-07] MEDS: FAMOTIDINE INJ/PF 20 MG/2 ML SDV IV SCH ×2 (09:16→21:04)
[2016-08-07] MEDS: POTASSI CL 20 MEQ/50 ML RIDER 50 ML IV SCH ×2 (09:17→11:16)
[2016-08-07] MEDS: ENOXAPARIN SODIUM INJ 40 MG/0.4 ML DISP.SYRIN SUBCUT SCH (09:24)
--- NOTE | 2016-08-07 12:17 | PDOC PROGRESS REPORT ---
Subjective Progress Note for:: 08/07/16 Subjective:: Complains of lower abdominal pain. Physical Exam Vital Signs: Temp Pulse Resp BP Pulse Ox 99.1 F 80 18 113/87 H 100 08/07/16 11:39 08/07/16 11:39 08/07/16 11:39 08/07/16 11:39 08/07/16 11:39 Intake & Output 08/06/16 08/07/16 08/08/16 06:59 06:59 06:59 Intake Total 4081 3160 Output Total 2300 2850 Balance 1781 310 Weight 74.4 kg 74 kg General appearance: PRESENT: no acute distress Eye exam: PRESENT: conjunctiva pink. ABSENT: scleral icterus Ear exam: PRESENT: normal external ear exam Mouth exam: PRESENT: moist, tongue midline Neck exam: ABSENT: JVD Respiratory exam: PRESENT: clear to auscultation luisa. ABSENT: rales, rhonchi, wheezes Cardiovascular exam: PRESENT: RRR. ABSENT: diastolic murmur, rubs, systolic murmur GI/Abdominal exam: PRESENT: normal bowel sounds, soft, tenderness - Lower tenderness., other - Ostomy in place. ABSENT: distended, guarding, mass, organolmegaly, rebound Extremities exam: ABSENT: calf tenderness, clubbing, pedal edema Neurological exam: PRESENT: alert, awake, oriented to person, oriented to place , oriented to time, oriented to situation, CN II-XII grossly intact. ABSENT: motor sensory deficit Psychiatric exam: PRESENT: appropriate affect Skin exam: PRESENT: dry, intact, warm. ABSENT: cyanosis, rash Results Laboratory Results: 08/07/16 04:20 08/07/16 04:20 08/07/16 08/07/16 08/07/16 04:20 04:20 04:20 WBC 22.7 H RBC 4.16 L Hgb 9.8 L Hct 32.1 L MCV 77 L MCH 23.5 L MCHC 30.5 L RDW 17.5 H Plt Count 369 Seg Neutrophils % Not Reportable Lymphocytes % Not Reportable Monocytes % Not Reportable Eosinophils % Not Reportable Basophils % Not Reportable Absolute Neutrophils Not Reportable Absolute Lymphocytes Not Reportable Absolute Monocytes Not Reportable Absolute Eosinophils Not Reportable Absolute Basophils Not Reportable Sodium 134.4 L Potassium 3.0 L* Chloride 97 L Carbon Dioxide 27 Anion Gap 10 BUN 3 L Creatinine 0.83 Est GFR ( Amer) > 60 Est GFR (Non-Af Amer) > 60 Glucose 80 Calcium 7.7 L Magnesium 1.7 Impressions: Abdomen/Pelvis CT 08/04/16 16:39 IMPRESSION: There are surgical changes and there are loculated pockets of fluid among the bowel loops. No acute abnormality is seen. Assessment & Plan - Diagnosis (1) SIRS (systemic inflammatory response syndrome) Is this a current diagnosis for this admission?: YesPlan: Patient has SIRS from his peritonitis. (2) Peritonitis (acute) generalized Is this a current diagnosis for this admission?: YesPlan: He is on Zosyn and vancomycin. Pain is improving. (3) Colon cancer Qualifiers: Colon location: unspecified part of colon Qualified Code(s): C18.9 - Malignant neoplasm of colon, unspecified Is this a current diagnosis for this admission?: YesPlan: Is followed by Dr. Veronica Lewis of oncology in [facility]. Patient be followed by Dr. Graham while hospitalized - Time Time Spent with patient: 25-34 minutes - Inpatient Certification Medical Necessity: Need For IV Fluids, Need for IV Antibiotics
--- NOTE | 2016-08-07 13:59 | PDOC PROGRESS REPORT ---
Subjective Progress Note for:: 08/07/16 Subjective:: Still with diffuse abdominal pain. Physical Exam Vital Signs: Temp Pulse Resp BP Pulse Ox 99.1 F 80 18 113/87 H 100 08/07/16 11:39 08/07/16 11:39 08/07/16 11:39 08/07/16 11:39 08/07/16 11:39 Intake & Output 08/06/16 08/07/16 08/08/16 06:59 06:59 06:59 Intake Total 4081 3160 Output Total 2300 2850 Balance 1781 310 Weight 74.4 kg 74 kg General appearance: PRESENT: no acute distress, cooperative Respiratory exam: PRESENT: clear to auscultation luisa Cardiovascular exam: PRESENT: RRR GI/Abdominal exam: PRESENT: other - Firm, distended, diffuse abdominal tenderness with guarding and rebound Results Laboratory Results: 08/07/16 04:20 08/07/16 04:20 08/07/16 08/07/16 08/07/16 04:20 04:20 04:20 WBC 22.7 H RBC 4.16 L Hgb 9.8 L Hct 32.1 L MCV 77 L MCH 23.5 L MCHC 30.5 L RDW 17.5 H Plt Count 369 Seg Neutrophils % Not Reportable Lymphocytes % Not Reportable Monocytes % Not Reportable Eosinophils % Not Reportable Basophils % Not Reportable Absolute Neutrophils Not Reportable Absolute Lymphocytes Not Reportable Absolute Monocytes Not Reportable Absolute Eosinophils Not Reportable Absolute Basophils Not Reportable Sodium 134.4 L Potassium 3.0 L* Chloride 97 L Carbon Dioxide 27 Anion Gap 10 BUN 3 L Creatinine 0.83 Est GFR ( Amer) > 60 Est GFR (Non-Af Amer) > 60 Glucose 80 Calcium 7.7 L Magnesium 1.7 Impressions: Abdomen/Pelvis CT 08/04/16 16:39 IMPRESSION: There are surgical changes and there are loculated pockets of fluid among the bowel loops. No acute abnormality is seen. Assessment & Plan - Diagnosis (1) Peritonitis (acute) generalized Is this a current diagnosis for this admission?: YesPlan: I have clearly explained to the patient that he needs an urgent operation in light of his peritonitis. I have explained to the patient clearly that he may very well without an operation. Despite my recommendation, patient vehemently refuses an operation. Surgery signing off since the patient absolutely refuses surgical intervention.
[2016-08-07] MEDS ORDERED: ONDANSETRON HCL INJ/PF 4 MG/2 ML SDV ONE (23:20)
[2016-08-08] MEDS: HYDROMORPHONE HCL INJ/PF 2 MG/ML AMPULE IV PRN ×7 (00:35→23:04)
[2016-08-08] MEDS: VANCOMYCIN HCL 1,000 MG in DEXTROSE 5%-WATER 250 ML IV SCH ×4 (02:08→20:02)
[2016-08-08] MEDS: NORMAL SALINE 1000 ML 1,000 ML IV PRN ×2 (04:21→18:47)
[2016-08-08 05:07] LABS: HEMATOCRIT 30.9 % (37.9-51.0); HEMOGLOBIN 9.7 g/dL (13.5-17.0); HGB HCT DIFFERENCE -1.8; MEAN CORPUSCULAR HGB CONC 31.4 g/dL (32.0-36.0); MEAN CORPUSCULAR VOLUME 76 fl (80-97); RED BLOOD COUNT 4.04 10^6/uL (4.35-5.55); RED CELL DISTRIBUTION WIDTH 17.1 % (11.5-14.0); WHITE BLOOD COUNT 22.8 10^3/uL (4.0-10.5)
[2016-08-08] MEDS: PIPERACILLIN SODIUM/TAZOBACTAM 4.5 GM in NORMAL SALINE 100 ML IV SCH ×4 (05:09→23:03)
[2016-08-08 05:23] LABS: ANION GAP 11 (5-19); BLOOD UREA NITROGEN 6 mg/dL (7-20); CALCIUM 8.1 mg/dL (8.4-10.2); CARBON DIOXIDE 28 mmol/L (22-30); CHLORIDE 98 mmol/L (98-107); CREATININE RESULT 0.77 mg/dL (0.52-1.25); GLUCOSE 93 mg/dL (75-110); POTASSIUM 3.3 mmol/L (3.6-5.0); SODIUM 137.4 mmol/L (137-145)
[2016-08-08 05:35] LABS: BASOPHILS % (MANUAL) 0 % (0-2); EOSINOPHILS % (MANUAL) 0 % (0-6); LYMPHOCYTES % (MANUAL) 5 % (13-45); TOTAL CELLS COUNTED 100
[2016-08-08 05:37] LABS: ANISOCYTOSIS 2+; BURR CELLS 1+; HYPOCHROMASIA SLIGHT; MICROCYTOSIS 1+; POIKILOCYTOSIS 2+; ROULEAUX 2+; TARGET CELLS 1+; TOXIC GRANULATION 1+; TOXIC VACUOLATION PRESENT
[2016-08-08] MEDS: ONDANSETRON HCL INJ/PF 4 MG/2 ML SDV IV PRN ×3 (07:20→21:31)
--- NOTE | 2016-08-08 08:15 | PDOC PROGRESS REPORT ---
Subjective Progress Note for:: 08/08/16 Subjective:: Pt's abd much better, was able to deeply palpate today w/out pain. But ate full breakfast that father brought in w/ pancakes and sausage. About 3 hours later began having bilious emesis that con't through the night. Physical Exam Vital Signs: Temp Pulse Resp BP Pulse Ox 99.9 F 83 16 125/84 98 08/08/16 04:13 08/08/16 04:13 08/08/16 04:13 08/08/16 04:13 08/08/16 04:13 Intake & Output 08/07/16 08/08/16 08/09/16 06:59 06:59 06:59 Intake Total 3160 2324 Output Total 2850 900 Balance 310 1424 Weight 74 kg General appearance: PRESENT: no acute distress, well-developed, well-nourished Head exam: PRESENT: atraumatic, normocephalic Eye exam: PRESENT: conjunctiva pink, EOMI, PERRLA. ABSENT: scleral icterus Ear exam: PRESENT: normal external ear exam Mouth exam: PRESENT: moist, tongue midline Neck exam: ABSENT: carotid bruit, JVD, lymphadenopathy, thyromegaly Respiratory exam: PRESENT: clear to auscultation luisa. ABSENT: rales, rhonchi, wheezes Cardiovascular exam: PRESENT: RRR. ABSENT: diastolic murmur, rubs, systolic murmur Pulses: PRESENT: normal dorsalis pedis pul Vascular exam: PRESENT: normal capillary refill GI/Abdominal exam: PRESENT: normal bowel sounds, soft. ABSENT: distended, guarding, mass, organolmegaly, rebound, tenderness Rectal exam: PRESENT: deferred Extremities exam: PRESENT: full ROM. ABSENT: calf tenderness, clubbing, pedal edema Neurological exam: PRESENT: alert, awake, oriented to person, oriented to place , oriented to time, oriented to situation, CN II-XII grossly intact. ABSENT: motor sensory deficit Psychiatric exam: PRESENT: appropriate affect, normal mood. ABSENT: homicidal ideation, suicidal ideation Skin exam: PRESENT: dry, intact, warm. ABSENT: cyanosis, rash Results Laboratory Results: 08/08/16 04:10 08/08/16 04:10 08/08/16 08/08/16 04:10 04:10 WBC 22.8 H RBC 4.04 L Hgb 9.7 L Hct 30.9 L MCV 76 L MCH 24.0 L MCHC 31.4 L RDW 17.1 H Plt Count 427 Seg Neutrophils % Not Reportable Lymphocytes % Not Reportable Monocytes % Not Reportable Eosinophils % Not Reportable Basophils % Not Reportable Absolute Neutrophils Not Reportable Absolute Lymphocytes Not Reportable Absolute Monocytes Not Reportable Absolute Eosinophils Not Reportable Absolute Basophils Not Reportable Sodium 137.4 Potassium 3.3 L Chloride 98 Carbon Dioxide 28 Anion Gap 11 BUN 6 L Creatinine 0.77 Est GFR ( Amer) > 60 Est GFR (Non-Af Amer) > 60 Glucose 93 Calcium 8.1 L Impressions: Abdomen/Pelvis CT 08/04/16 16:39 IMPRESSION: There are surgical changes and there are loculated pockets of fluid among the bowel loops. No acute abnormality is seen. Assessment & Plan - Diagnosis (1) Peritonitis (acute) generalized Is this a current diagnosis for this admission?: YesPlan: Physical exam better but w/ nausea maybe prompted by too early initiation of solid foods (done by pt), will advance more slowly, will con't w/ medical management. Recommend d/c vanc. Maybe transition zosyn to less spectrum antbx ( will discuss w/ hospitalist team) (2) Colon cancer metastasized to liver Is this a current diagnosis for this admission?: YesPlan: Further rx planned as oupt - Time Time Spent with patient: 35 or more minutes Critical Time spent with patient: 35 or more minutes
[2016-08-08 09:42] LABS: CREATININE RESULT 0.81 mg/dL (0.52-1.25)
[2016-08-08] MEDS: FAMOTIDINE INJ/PF 20 MG/2 ML SDV IV SCH ×2 (10:44→22:25)
[2016-08-08] MEDS: ENOXAPARIN SODIUM INJ 40 MG/0.4 ML DISP.SYRIN SUBCUT SCH (10:44)
--- NOTE | 2016-08-08 13:38 | PDOC PROGRESS REPORT ---
Subjective Progress Note for:: 08/08/16 Subjective:: Reports that his abdominal pain is improved Physical Exam Vital Signs: Temp Pulse Resp BP Pulse Ox 98.6 F 79 18 109/65 100 08/08/16 07:28 08/08/16 07:28 08/08/16 07:28 08/08/16 07:28 08/08/16 07:28 Intake & Output 08/07/16 08/08/16 08/09/16 06:59 06:59 06:59 Intake Total 3160 2324 Output Total 2850 900 Balance 310 1424 Weight 74 kg General appearance: PRESENT: no acute distress Eye exam: PRESENT: conjunctiva pink. ABSENT: scleral icterus Ear exam: PRESENT: normal external ear exam Mouth exam: PRESENT: moist, tongue midline Neck exam: ABSENT: JVD Respiratory exam: PRESENT: clear to auscultation luisa. ABSENT: rales, rhonchi, wheezes Cardiovascular exam: PRESENT: RRR. ABSENT: diastolic murmur, rubs, systolic murmur GI/Abdominal exam: PRESENT: normal bowel sounds, soft, tenderness - Minimal tenderness in the lower abdomen., other - Ostomy in place. ABSENT: distended, guarding, mass, organolmegaly, rebound Extremities exam: ABSENT: calf tenderness, clubbing, pedal edema Neurological exam: PRESENT: alert, awake, oriented to person, oriented to place , oriented to time, oriented to situation, CN II-XII grossly intact. ABSENT: motor sensory deficit Psychiatric exam: PRESENT: appropriate affect Skin exam: PRESENT: dry, intact, warm. ABSENT: cyanosis, rash Results Laboratory Results: 08/08/16 04:10 08/08/16 08:45 08/08/16 08/08/16 08/08/16 04:10 04:10 08:45 WBC 22.8 H RBC 4.04 L Hgb 9.7 L Hct 30.9 L MCV 76 L MCH 24.0 L MCHC 31.4 L RDW 17.1 H Plt Count 427 Seg Neutrophils % Not Reportable Lymphocytes % Not Reportable Monocytes % Not Reportable Eosinophils % Not Reportable Basophils % Not Reportable Absolute Neutrophils Not Reportable Absolute Lymphocytes Not Reportable Absolute Monocytes Not Reportable Absolute Eosinophils Not Reportable Absolute Basophils Not Reportable Sodium 137.4 Potassium 3.3 L Chloride 98 Carbon Dioxide 28 Anion Gap 11 BUN 6 L Creatinine 0.77 0.81 Est GFR ( Amer) > 60 > 60 Est GFR (Non-Af Amer) > 60 > 60 Glucose 93 Calcium 8.1 L Impressions: Abdomen/Pelvis CT 08/04/16 16:39 IMPRESSION: There are surgical changes and there are loculated pockets of fluid among the bowel loops. No acute abnormality is seen. Assessment & Plan - Diagnosis (1) SIRS (systemic inflammatory response syndrome) Is this a current diagnosis for this admission?: YesPlan: Patient has SIRS from his peritonitis. (2) Peritonitis (acute) generalized Is this a current diagnosis for this admission?: YesPlan: He is on Zosyn and vancomycin. Pain is improving. (3) Colon cancer Qualifiers: Colon location: unspecified part of colon Qualified Code(s): C18.9 - Malignant neoplasm of colon, unspecified Is this a current diagnosis for this admission?: YesPlan: Is followed by Dr. Veronica Lewis of oncology in [facility]. Patient is being followed by Dr. Graham while hospitalized - Time Time Spent with patient: 25-34 minutes - Inpatient Certification Medical Necessity: Need Close Monitoring Due to Risk of Patient Decompensation
[2016-08-09] MEDS: HYDROMORPHONE HCL INJ/PF 2 MG/ML AMPULE IV PRN ×6 (02:06→23:59)
[2016-08-09] MEDS: VANCOMYCIN HCL 1,000 MG in DEXTROSE 5%-WATER 250 ML IV SCH ×2 (02:07→09:31)
[2016-08-09 05:02] LABS: ANION GAP 8 (5-19); BLOOD UREA NITROGEN 6 mg/dL (7-20); CALCIUM 8.4 mg/dL (8.4-10.2); CARBON DIOXIDE 30 mmol/L (22-30); CHLORIDE 100 mmol/L (98-107); CREATININE RESULT 0.88 mg/dL (0.52-1.25); GLUCOSE 100 mg/dL (75-110); POTASSIUM 3.3 mmol/L (3.6-5.0); SODIUM 137.6 mmol/L (137-145)
[2016-08-09 05:08] LABS: HEMATOCRIT 30.8 % (37.9-51.0); HEMOGLOBIN 9.6 g/dL (13.5-17.0); MEAN CORPUSCULAR HEMOGLOBIN 23.6 pg (27.0-33.4); MEAN CORPUSCULAR HGB CONC 31.1 g/dL (32.0-36.0); MEAN CORPUSCULAR VOLUME 76 fl (80-97); RED BLOOD COUNT 4.07 10^6/uL (4.35-5.55); RED CELL DISTRIBUTION WIDTH 17.2 % (11.5-14.0); WHITE BLOOD COUNT 15.3 10^3/uL (4.0-10.5)
[2016-08-09] MEDS: PIPERACILLIN SODIUM/TAZOBACTAM 4.5 GM in NORMAL SALINE 100 ML IV SCH ×4 (05:29→23:16)
[2016-08-09] MEDS: NORMAL SALINE 1000 ML 1,000 ML IV PRN ×3 (05:31→23:18)
[2016-08-09 05:48] LABS: BASOPHILS % (MANUAL) 0 % (0-2); EOSINOPHILS % (MANUAL) 0 % (0-6); LYMPHOCYTES % (MANUAL) 3 % (13-45); TOTAL CELLS COUNTED 100
[2016-08-09 05:51] LABS: ACANTHOCYTES 1+; ANISOCYTOSIS 1+; BURR CELLS 1+; HYPOCHROMASIA 1+; MICROCYTOSIS 1+; POIKILOCYTOSIS 2+; TARGET CELLS 2+
[2016-08-09] MEDS: ONDANSETRON HCL INJ/PF 4 MG/2 ML SDV IV PRN (06:56)
[2016-08-09] MEDS: FAMOTIDINE INJ/PF 20 MG/2 ML SDV IV SCH ×2 (09:32→21:11)
[2016-08-09] MEDS: ENOXAPARIN SODIUM INJ 40 MG/0.4 ML DISP.SYRIN SUBCUT SCH (09:32)
--- NOTE | 2016-08-09 11:33 | PDOC PROGRESS REPORT ---
Subjective Progress Note for:: 08/09/16 Subjective:: He seems to be doing a little bit better only vomited 3 times yesterday. Belly still feels soft. Physical Exam Vital Signs: Temp Pulse Resp BP Pulse Ox 99.7 F 86 16 133/92 H 99 08/09/16 07:22 08/09/16 07:22 08/09/16 07:22 08/09/16 07:22 08/09/16 07:22 Intake & Output 08/08/16 08/09/16 08/10/16 06:59 06:59 06:59 Intake Total 2324 4031 Output Total 900 1025 Balance 1424 3006 Weight 74 kg General appearance: PRESENT: no acute distress, well-developed, well-nourished Head exam: PRESENT: atraumatic, normocephalic Eye exam: PRESENT: conjunctiva pink, EOMI, PERRLA. ABSENT: scleral icterus Ear exam: PRESENT: normal external ear exam Mouth exam: PRESENT: moist, tongue midline Neck exam: ABSENT: carotid bruit, JVD, lymphadenopathy, thyromegaly Respiratory exam: PRESENT: clear to auscultation luisa. ABSENT: rales, rhonchi, wheezes Cardiovascular exam: PRESENT: RRR. ABSENT: diastolic murmur, rubs, systolic murmur Pulses: PRESENT: normal dorsalis pedis pul Vascular exam: PRESENT: normal capillary refill GI/Abdominal exam: PRESENT: normal bowel sounds, soft. ABSENT: distended, guarding, mass, organolmegaly, rebound, tenderness Rectal exam: PRESENT: deferred Extremities exam: PRESENT: full ROM. ABSENT: calf tenderness, clubbing, pedal edema Neurological exam: PRESENT: alert, awake, oriented to person, oriented to place , oriented to time, oriented to situation, CN II-XII grossly intact. ABSENT: motor sensory deficit Psychiatric exam: PRESENT: appropriate affect, normal mood. ABSENT: homicidal ideation, suicidal ideation Skin exam: PRESENT: dry, intact, warm. ABSENT: cyanosis, rash Results Laboratory Results: 08/09/16 04:10 08/09/16 04:10 08/09/16 08/09/16 04:10 04:10 WBC 15.3 H RBC 4.07 L Hgb 9.6 L Hct 30.8 L MCV 76 L MCH 23.6 L MCHC 31.1 L RDW 17.2 H Plt Count 487 H Seg Neutrophils % Not Reportable Lymphocytes % Not Reportable Monocytes % Not Reportable Eosinophils % Not Reportable Basophils % Not Reportable Absolute Neutrophils Not Reportable Absolute Lymphocytes Not Reportable Absolute Monocytes Not Reportable Absolute Eosinophils Not Reportable Absolute Basophils Not Reportable Sodium 137.6 Potassium 3.3 L Chloride 100 Carbon Dioxide 30 Anion Gap 8 BUN 6 L Creatinine 0.88 Est GFR ( Amer) > 60 Est GFR (Non-Af Amer) > 60 Glucose 100 Calcium 8.4 Impressions: Abdomen/Pelvis CT 08/04/16 16:39 IMPRESSION: There are surgical changes and there are loculated pockets of fluid among the bowel loops. No acute abnormality is seen. Assessment & Plan - Diagnosis (1) Peritonitis (acute) generalized Is this a current diagnosis for this admission?: YesPlan: Improved, continue with hydration, recommended that he push clear liquids today and see if he can advance diet further. But he will need to advance slowly. Continue with antibiotics but I have discontinued the vancomycin. (2) Colon cancer metastasized to liver Is this a current diagnosis for this admission?: YesPlan: Further treatment planned as an outpatient - Time Time Spent with patient: 35 or more minutes Critical Time spent with patient: 35 or more minutes
[2016-08-09] MEDS: PROMETHAZINE HCL INJ 25 MG/1 ML VIAL IV PRN ×2 (12:18→19:58)
--- NOTE | 2016-08-09 12:41 | PDOC PROGRESS REPORT ---
Subjective Progress Note for:: 08/09/16 Subjective:: Reports that his abdominal pain is improved Physical Exam Vital Signs: Temp Pulse Resp BP Pulse Ox 99.0 F 69 16 129/72 H 98 08/09/16 11:48 08/09/16 11:48 08/09/16 11:48 08/09/16 11:48 08/09/16 11:48 Intake & Output 08/08/16 08/09/16 08/10/16 06:59 06:59 06:59 Intake Total 2324 4031 237 Output Total 900 1025 700 Balance 1424 3006 -463 Weight 74 kg General appearance: PRESENT: no acute distress Eye exam: PRESENT: conjunctiva pink Mouth exam: PRESENT: moist, tongue midline Neck exam: ABSENT: JVD Respiratory exam: PRESENT: clear to auscultation luisa. ABSENT: rales, rhonchi, wheezes Cardiovascular exam: PRESENT: RRR. ABSENT: diastolic murmur, rubs, systolic murmur GI/Abdominal exam: PRESENT: normal bowel sounds, soft, tenderness - Minimal lower abdominal tenderness. ABSENT: distended, guarding, mass, organolmegaly, rebound Extremities exam: ABSENT: calf tenderness, clubbing, pedal edema Neurological exam: PRESENT: alert, awake, oriented to person, oriented to place , oriented to time, oriented to situation, CN II-XII grossly intact. ABSENT: motor sensory deficit Psychiatric exam: PRESENT: appropriate affect Skin exam: PRESENT: dry, intact, warm. ABSENT: cyanosis, rash Results Laboratory Results: 08/09/16 04:10 08/09/16 04:10 08/09/16 08/09/16 04:10 04:10 WBC 15.3 H RBC 4.07 L Hgb 9.6 L Hct 30.8 L MCV 76 L MCH 23.6 L MCHC 31.1 L RDW 17.2 H Plt Count 487 H Seg Neutrophils % Not Reportable Lymphocytes % Not Reportable Monocytes % Not Reportable Eosinophils % Not Reportable Basophils % Not Reportable Absolute Neutrophils Not Reportable Absolute Lymphocytes Not Reportable Absolute Monocytes Not Reportable Absolute Eosinophils Not Reportable Absolute Basophils Not Reportable Sodium 137.6 Potassium 3.3 L Chloride 100 Carbon Dioxide 30 Anion Gap 8 BUN 6 L Creatinine 0.88 Est GFR ( Amer) > 60 Est GFR (Non-Af Amer) > 60 Glucose 100 Calcium 8.4 Impressions: Abdomen/Pelvis CT 08/04/16 16:39 IMPRESSION: There are surgical changes and there are loculated pockets of fluid among the bowel loops. No acute abnormality is seen. Assessment & Plan - Diagnosis (1) SIRS (systemic inflammatory response syndrome) Is this a current diagnosis for this admission?: YesPlan: Patient has SIRS from his peritonitis. (2) Peritonitis (acute) generalized Is this a current diagnosis for this admission?: YesPlan: He is on Zosyn. Vancomycin has been stopped. Pain is improving. (3) Colon cancer Qualifiers: Colon location: unspecified part of colon Qualified Code(s): C18.9 - Malignant neoplasm of colon, unspecified Is this a current diagnosis for this admission?: YesPlan: Is followed by Dr. Veronica Lewis of oncology in [place] outpatient. Patient is being followed by Dr. Graham while hospitalized - Time Time Spent with patient: 25-34 minutes - Inpatient Certification Medical Necessity: Need Close Monitoring Due to Risk of Patient Decompensation, Need for IV Antibiotics
[2016-08-09] MEDS: LORAZEPAM INJ 2 MG/1 ML VIAL IV PRN (16:26)
[2016-08-10] MEDS: HYDROMORPHONE HCL INJ/PF 2 MG/ML AMPULE IV PRN ×4 (03:30→19:58)
[2016-08-10 05:22] LABS: HEMATOCRIT 30.1 % (37.9-51.0); HEMOGLOBIN 9.2 g/dL (13.5-17.0); HGB HCT DIFFERENCE -2.5; MEAN CORPUSCULAR HEMOGLOBIN 23.4 pg (27.0-33.4); MEAN CORPUSCULAR HGB CONC 30.7 g/dL (32.0-36.0); MEAN CORPUSCULAR VOLUME 76 fl (80-97); RED BLOOD COUNT 3.95 10^6/uL (4.35-5.55); RED CELL DISTRIBUTION WIDTH 17.3 % (11.5-14.0); WHITE BLOOD COUNT 12.9 10^3/uL (4.0-10.5)
[2016-08-10] MEDS: PIPERACILLIN SODIUM/TAZOBACTAM 4.5 GM in NORMAL SALINE 100 ML IV SCH ×3 (05:23→17:52)
[2016-08-10 05:25] LABS: ANION GAP 16 (5-19); BLOOD UREA NITROGEN 13 mg/dL (7-20); CALCIUM 8.3 mg/dL (8.4-10.2); CARBON DIOXIDE 25 mmol/L (22-30); CHLORIDE 105 mmol/L (98-107); CREATININE RESULT 1.65 mg/dL (0.52-1.25); GLUCOSE 69 mg/dL (75-110); POTASSIUM 3.2 mmol/L (3.6-5.0); SODIUM 145.5 mmol/L (137-145)
[2016-08-10 06:34] LABS: BAND NEUTROPHILS % (MANUAL) 1 % (3-5); BASOPHILS % (MANUAL) 0 % (0-2); EOSINOPHILS % (MANUAL) 0 % (0-6); LYMPHOCYTES % (MANUAL) 4 % (13-45); TOTAL CELLS COUNTED 100
[2016-08-10 06:38] LABS: PLATELET CLUMPS PRESENT
[2016-08-10 06:39] LABS: TARGET CELLS 2+
[2016-08-10 06:40] LABS: ANISOCYTOSIS 1+; MICROCYTOSIS SLIGHT; POIKILOCYTOSIS 1+; TOXIC GRANULATION SLIGHT
[2016-08-10 06:41] LABS: BURR CELLS 1+
[2016-08-10] MEDS ORDERED: NORMAL SALINE 1000 ML 1,000 ML IV ONE (07:18)
[2016-08-10] MEDS: ONDANSETRON HCL INJ/PF 4 MG/2 ML SDV IV PRN (07:54)
[2016-08-10] MEDS: NORMAL SALINE 1000 ML 1,000 ML IV PRN ×2 (07:57→15:31)
[2016-08-10] MEDS: FAMOTIDINE INJ/PF 20 MG/2 ML SDV IV SCH ×2 (09:35→21:48)
[2016-08-10] MEDS: ENOXAPARIN SODIUM INJ 40 MG/0.4 ML DISP.SYRIN SUBCUT SCH (09:36)
--- NOTE | 2016-08-10 10:08 | PDOC PROGRESS REPORT ---
Subjective Progress Note for:: 08/10/16 Subjective:: Had some vomiting earlier this morning Physical Exam Vital Signs: Temp Pulse Resp BP Pulse Ox 99.0 F 68 16 127/77 H 97 08/10/16 07:23 08/10/16 07:23 08/10/16 07:23 08/10/16 07:23 08/10/16 07:23 Intake & Output 08/09/16 08/10/16 08/11/16 06:59 06:59 06:59 Intake Total 4031 5731 Output Total 1025 2875 Balance 3006 2856 Weight 74 kg General appearance: PRESENT: no acute distress Eye exam: PRESENT: conjunctiva pink. ABSENT: scleral icterus Mouth exam: PRESENT: moist, tongue midline Neck exam: ABSENT: JVD Respiratory exam: PRESENT: clear to auscultation luisa. ABSENT: rales, rhonchi, wheezes Cardiovascular exam: PRESENT: RRR. ABSENT: diastolic murmur, rubs, systolic murmur GI/Abdominal exam: PRESENT: soft. ABSENT: distended, guarding, mass, organolmegaly, rebound, tenderness Extremities exam: ABSENT: calf tenderness, clubbing, pedal edema Neurological exam: PRESENT: alert, awake, oriented to person, oriented to place , oriented to time, oriented to situation, CN II-XII grossly intact. ABSENT: motor sensory deficit Psychiatric exam: PRESENT: appropriate affect Skin exam: PRESENT: dry, intact, warm. ABSENT: cyanosis, rash Results Laboratory Results: 08/10/16 04:00 08/10/16 04:00 08/10/16 08/10/16 04:00 04:00 WBC 12.9 H RBC 3.95 L Hgb 9.2 L Hct 30.1 L MCV 76 L MCH 23.4 L MCHC 30.7 L RDW 17.3 H Plt Count 565 H Seg Neutrophils % Not Reportable Lymphocytes % Not Reportable Monocytes % Not Reportable Eosinophils % Not Reportable Basophils % Not Reportable Absolute Neutrophils Not Reportable Absolute Lymphocytes Not Reportable Absolute Monocytes Not Reportable Absolute Eosinophils Not Reportable Absolute Basophils Not Reportable Sodium 145.5 H Potassium 3.2 L Chloride 105 Carbon Dioxide 25 Anion Gap 16 BUN 13 Creatinine 1.65 H Est GFR ( Amer) 56 L Est GFR (Non-Af Amer) 46 L Glucose 69 L Calcium 8.3 L Impressions: Abdomen/Pelvis CT 08/04/16 16:39 IMPRESSION: There are surgical changes and there are loculated pockets of fluid among the bowel loops. No acute abnormality is seen. Assessment & Plan - Diagnosis (1) SIRS (systemic inflammatory response syndrome) Is this a current diagnosis for this admission?: YesPlan: Patient has SIRS from his peritonitis. (2) Peritonitis (acute) generalized Is this a current diagnosis for this admission?: YesPlan: He is on Zosyn. Vancomycin has been stopped. Pain is improving but is still having some vomiting. Will start the patient on Reglan to see if that will help (3) Colon cancer Qualifiers: Colon location: unspecified part of colon Qualified Code(s): C18.9 - Malignant neoplasm of colon, unspecified Is this a current diagnosis for this admission?: YesPlan: Is followed by Dr. Veronica Lewis of oncology in [facility]. Patient is being followed by Dr. Graham while hospitalized (4) Acute renal failure Qualifiers: Acute renal failure type: unspecified Qualified Code(s): N17.9 - Acute kidney failure, unspecified Is this a current diagnosis for this admission?: YesPlan: We will give IV fluids overnight. - Time Time Spent with patient: 25-34 minutes - Inpatient Certification Medical Necessity: Need Close Monitoring Due to Risk of Patient Decompensation, Need For IV Fluids
[2016-08-10] MEDS: METOCLOPRAMIDE HCL 10 MG TABLET PO SCH ×3 (11:54→21:51)
[2016-08-10] MEDS: PROMETHAZINE HCL INJ 25 MG/1 ML VIAL IV PRN ×2 (11:58→17:52)
--- NOTE | 2016-08-10 22:40 | EKG REPORT ---
SEVERITY:- BORDERLINE ECG - SINUS ARRHYTHMIA, RATE 47-67 PROBABLE LEFT ATRIAL ABNORMALITY ABNORMALITIES, ANTERIOR LEADS CONSIDER ISCHEMIA VS NON SPECIFIC : Confirmed by: Marika Martinez 10-Aug-2016 22:39:36
[2016-08-11 05:18] LABS: HEMATOCRIT 28.6 % (37.9-51.0); HGB HCT DIFFERENCE -1.6; MEAN CORPUSCULAR HEMOGLOBIN 23.8 pg (27.0-33.4); MEAN CORPUSCULAR HGB CONC 31.5 g/dL (32.0-36.0); MEAN CORPUSCULAR VOLUME 76 fl (80-97); RED BLOOD COUNT 3.79 10^6/uL (4.35-5.55); RED CELL DISTRIBUTION WIDTH 16.8 % (11.5-14.0); WHITE BLOOD COUNT 14.2 10^3/uL (4.0-10.5)
[2016-08-11 05:29] LABS: ANION GAP 16 (5-19); BLOOD UREA NITROGEN 16 mg/dL (7-20); CARBON DIOXIDE 19 mmol/L (22-30); CHLORIDE 110 mmol/L (98-107); CREATININE RESULT 1.52 mg/dL (0.52-1.25); GLUCOSE 69 mg/dL (75-110); POTASSIUM 3.5 mmol/L (3.6-5.0); SODIUM 144.7 mmol/L (137-145)
[2016-08-11] MEDS: PIPERACILLIN SODIUM/TAZOBACTAM 4.5 GM in NORMAL SALINE 100 ML IV SCH ×5 (05:30→17:34)
[2016-08-11 06:12] LABS: BASOPHILS % (MANUAL) 0 % (0-2); EOSINOPHILS % (MANUAL) 0 % (0-6); LYMPHOCYTES % (MANUAL) 4 % (13-45); TOTAL CELLS COUNTED 100
[2016-08-11 06:14] LABS: BURR CELLS SLIGHT; OVALOCYTES SLIGHT; SCHISTOCYTES SLIGHT; TARGET CELLS 2+
[2016-08-11 06:15] LABS: ANISOCYTOSIS 1+; HYPOCHROMASIA 1+; MICROCYTOSIS 1+; POIKILOCYTOSIS 1+; TOXIC GRANULATION 1+
[2016-08-11] MEDS: NORMAL SALINE 1000 ML 1,000 ML IV PRN ×2 (06:25→17:37)
[2016-08-11] MEDS: METOCLOPRAMIDE HCL 10 MG TABLET PO SCH (08:52)
--- NOTE | 2016-08-11 10:23 | PDOC PROGRESS REPORT ---
Subjective Progress Note for:: 08/11/16 Subjective:: Had some vomiting earlier this morning Physical Exam Vital Signs: Temp Pulse Resp BP Pulse Ox 98.0 F 45 L 20 108/59 L 99 08/11/16 07:27 08/11/16 07:27 08/11/16 07:27 08/11/16 07:27 08/11/16 07:27 Intake & Output 08/10/16 08/11/16 08/12/16 06:59 06:59 06:59 Intake Total 5731 4844 Output Total 2875 2950 Balance 2856 1894 General appearance: PRESENT: no acute distress Eye exam: PRESENT: conjunctiva pink. ABSENT: scleral icterus Mouth exam: PRESENT: moist, tongue midline Neck exam: ABSENT: JVD Respiratory exam: PRESENT: clear to auscultation luisa. ABSENT: rales, rhonchi, wheezes Cardiovascular exam: PRESENT: RRR. ABSENT: diastolic murmur, rubs, systolic murmur GI/Abdominal exam: PRESENT: normal bowel sounds, soft, other - Ostomy in place. ABSENT: distended, guarding, mass, organolmegaly, rebound, tenderness Extremities exam: ABSENT: calf tenderness, clubbing, pedal edema Neurological exam: PRESENT: alert, awake, oriented to person, oriented to place , oriented to time, oriented to situation, CN II-XII grossly intact. ABSENT: motor sensory deficit Psychiatric exam: PRESENT: appropriate affect Skin exam: PRESENT: dry, intact, warm. ABSENT: cyanosis, rash Results Laboratory Results: 08/11/16 03:55 08/11/16 03:55 08/11/16 08/11/16 03:55 03:55 WBC 14.2 H RBC 3.79 L Hgb 9.0 L Hct 28.6 L MCV 76 L MCH 23.8 L MCHC 31.5 L RDW 16.8 H Plt Count 591 H Seg Neutrophils % Not Reportable Lymphocytes % Not Reportable Monocytes % Not Reportable Eosinophils % Not Reportable Basophils % Not Reportable Absolute Neutrophils Not Reportable Absolute Lymphocytes Not Reportable Absolute Monocytes Not Reportable Absolute Eosinophils Not Reportable Absolute Basophils Not Reportable Sodium 144.7 Potassium 3.5 L Chloride 110 H Carbon Dioxide 19 L Anion Gap 16 BUN 16 Creatinine 1.52 H Est GFR ( Amer) > 60 Est GFR (Non-Af Amer) 51 L Glucose 69 L Calcium 8.0 L Impressions: Abdomen/Pelvis CT 08/04/16 16:39 IMPRESSION: There are surgical changes and there are loculated pockets of fluid among the bowel loops. No acute abnormality is seen. Assessment & Plan - Diagnosis (1) SIRS (systemic inflammatory response syndrome) Is this a current diagnosis for this admission?: YesPlan: Patient has SIRS from his peritonitis. (2) Peritonitis (acute) generalized Is this a current diagnosis for this admission?: YesPlan: He is on Zosyn. Pain is improving but is still having some vomiting. Will repeat abdominal CT to see if he has any new abnormalities given the fact that he is acidotic with a low bicarbonate this morning. (3) Colon cancer Qualifiers: Colon location: unspecified part of colon Qualified Code(s): C18.9 - Malignant neoplasm of colon, unspecified Is this a current diagnosis for this admission?: YesPlan: Is followed by Dr. Veronica Lewis of oncology in [facility]. Patient is being followed by Dr. Graham while hospitalized (4) Acute renal failure Qualifiers: Acute renal failure type: unspecified Qualified Code(s): N17.9 - Acute kidney failure, unspecified Is this a current diagnosis for this admission?: YesPlan: Slightly improved. We will continue with IV fluids. (5) Bradycardia Is this a current diagnosis for this admission?: YesPlan: Patient had asymptomatic bradycardia. The patient has had nausea and vomiting this morning. Cardiology has evaluated the patient and noted that he is in third-degree heart block currently. They recommend an echocardiogram as well as stop the Reglan which has been done. Their assistance is greatly appreciated - Time Time Spent with patient: 25-34 minutes - Inpatient Certification Medical Necessity: Need for Pain Control, Need for IV Antibiotics
[2016-08-11] MEDS: FAMOTIDINE INJ/PF 20 MG/2 ML SDV IV SCH ×2 (10:26→21:18)
[2016-08-11] MEDS: ENOXAPARIN SODIUM INJ 40 MG/0.4 ML DISP.SYRIN SUBCUT SCH (10:26)
[2016-08-11] MEDS ORDERED: ATROPINE SULFATE INJ 1 MG/10 ML DISP.SYRIN IV ONE (10:45)
[2016-08-11] MEDS: PROMETHAZINE HCL INJ 25 MG/1 ML VIAL IV PRN ×2 (11:05→19:21)
--- NOTE | 2016-08-11 14:01 | XCELERA REPORT ---
[address] [address] Transthoracic Echocardiogram Report Name: JERE CRUZ Age: 41 yrs Gender: Male : 1975 Patient Status: Inpatient Patient Location: [id number]\A Study Date: 08/11/2016 10:32 AM Height: 69 in Weight: 163 lb BSA: 1.9 m2 Procedure: A two-dimensional transthoracic echocardiogram with color flow and Doppler was performed. The study was technically adequate with some images being suboptimal in quality. Reason For Study: BRADYCARDIA / PERICARDIAL DISEASE History: BRADYCARDIA / PERICARDIAL DISEASE. Ordering Physician: DACIA CARDOZA Performed By: Katherin Powers Interpretation Summary The left ventricle is normal in size. There is normal left ventricular wall thickness. LV EF is 65% Left ventricular systolic function is normal. Doppler measurements suggest normal left ventricular diastolic function The left ventricular wall motion is normal. There is no thrombus. The right atrium is normal. The left atrial size is normal. The interatrial septum is intact with no evidence for an atrial septal defect. There is no evidence of mitral valve prolapse. There is no mitral valve stenosis. There is a trace to mild amount of mitral regurgitation There is no aortic valve stenosis There is no LVOT obstruction. No aortic regurgitation is present. No 'AV ring abscess'. There is no tricuspid stenosis. There is a trace amount of tricuspid regurgitation Right ventricular systolic pressure is normal. RVSP is 27 mm of Hg , with RA mean of 5. The aortic root is normal size. Trace pericardial effusion , with no echo evidence of tamponade/ MMode/2D Measurements \T\ Calculations RVDd: 3.0 cm LVIDd: 5.2 cm FS: 34.5 % Ao root diam: 3.7 cm IVSd: 1.0 cm LVIDs: 3.4 cm EDV(Teich): 127.9 ml LVPWd: 0.96 cm ESV(Teich): 46.9 ml Ao root area: 10.6 cm2 EF(Teich): 63.3 % LA dimension: 3.0 cm LVOT diam: 2.5 cm LVOT area: 4.7 cm2 Doppler Measurements \T\ Calculations MV E max tommy: MV P1/2t max tommy: Ao V2 max: LV V1 max P.3 cm/sec 94.3 cm/sec 135.1 cm/sec 8.0 mmHg MV A max tommy: MV P1/2t: 60.8 msec Ao max PG: LV V1 max: 89.3 cm/sec MVA(P1/2t): 3.6 cm2 7.3 mmHg 141.7 cm/sec MV E/A: 1.0 MV dec slope: SOFI(V,D): 5.0 cm2 453.8 cm/sec2 PA V2 max: PI end-d tommy: TR max tommy: 119.0 cm/sec 132.6 cm/sec 232.7 cm/sec PA max PG: TR max P.7 mmHg 21.7 mmHg Left Ventricle The left ventricle is normal in size. There is normal left ventricular wall thickness. LV EF is 65%. Left ventricular systolic function is normal. Doppler measurements suggest normal left ventricular diastolic function. The left ventricular wall motion is normal. There is no thrombus. There is no ventricular septal defect visualized. Right Ventricle The right ventricle is normal in size and function. Atria The right atrium is normal. The left atrial size is normal. The interatrial septum is intact with no evidence for an atrial septal defect. Mitral Valve There is no evidence of mitral valve prolapse. There is no vegetation seen on the mitral valve. There is no mitral valve stenosis. There is a trace to mild amount of mitral regurgitation. Aortic Valve The aortic valve is trileaflet. The aortic valve opens well. There is no aortic valvular vegetation. There is no aortic valve stenosis. There is no LVOT obstruction. No 'AV ring abscess'. No aortic regurgitation is present. Tricuspid Valve There is no tricuspid stenosis. There is a trace amount of tricuspid regurgitation. Right ventricular systolic pressure is normal. RVSP is 27 mm of Hg , with RA mean of 5. Pulmonic Valve There is no pulmonic valvular stenosis. There is a trace amount of pulmonic regurgitation. Great Vessels The aortic root is normal size. Effusions Trace pericardial effusion , with no echo evidence of tamponade/. : DACIA CARDOZA > Dacia Cardoza
[2016-08-11] MEDS: ONDANSETRON HCL INJ/PF 4 MG/2 ML SDV IV PRN (14:27)
--- NOTE | 2016-08-11 14:31 | RADIOLOGY REPORT (SQ) ---
EXAM DESCRIPTION: CT ABD/PELVIS NO ORAL OR IV COMPLETED DATE/TIME: 08/11/2016 2:09 pm REASON FOR STUDY: peritonitis COMPARISON: CT abdomen pelvis with IV contrast 08/04/2016 CT abdomen pelvis without contrast 04/07/2016, 05/15/2015, 05/10/2015, 05/26/2013 TECHNIQUE: CT scan of the abdomen and pelvis performed without intravenous or oral contrast. Images reviewed with lung, soft tissue, and bone windows. Reconstructed coronal and sagittal MPR images revi ewed. All images stored on PACS. All CT scanners at this facility use dose modulation, iterative reconstruction, and/or weight based d osing when appropriate to reduce radiation dose to as low as reasonably achievable (ALARA). [facility]: Dose Right [facility]: CareDose [facility]: Dose Right [facility]: Teradose 4D [facility]: Smart NEXTA Media RADIATION DOSE: Up-to-date CT equipment and radiation dose reduction techniques were employed. CTDIv ol: 3.4 mGy. DLP: 204 mGy-cm.mGy. LIMITATIONS: No oral or IV contrast FINDINGS: LOWER CHEST: No significant findings. No nodules or infiltrates. NON-CONTRASTED LIVER, SPLEEN, ADRENALS: Evaluation limited by lack of IV contrast. No identified sign ificant masses. Spleen surgically absent PANCREAS: No masses. No peripancreatic inflammatory changes. GALLBLADDER: Surgically absent RIGHT KIDNEY AND URETER: No suspicious masses. Assessment limited by lack of IV contrast. No signif icant calcifications. No hydronephrosis or hydroureter. LEFT KIDNEY AND URETER: No suspicious masses. Assessment limited by lack of IV contrast. No signifi cant calcifications. No hydronephrosis or hydroureter. AORTA AND RETROPERITONEUM: No aneurysm. No retroperitoneal masses or adenopathy. BOWEL: No obvious masses or inflammatory changes. No free fluid. PERITONEAL CAVITY: Distended with diffuse ascites in the lesser sac, pelvic cul-de-sac, right and le ft pericolic gutters, and left subphrenic region. APPENDIX: Surgically absent PELVIS, BLADDER, AND ABDOMINAL WALL:No abnormal masses. No free fluid. Bladder normal. BONES: No significant findings. OTHER: Report discussed with dr Eugene IMPRESSION: Very limited scan due the lack of IV and oral contrast. Stable ascites in the abdomen a nd pelvis compared to 08/04/2016. No gross free intraperitoneal air. TECHNICAL DOCUMENTATION: JOB ID: [id number] Quality ID # [id number]: Final reports with documentation of one or more dose reduction techniques (e.g., Au tomated exposure control, adjustment of the mA and/or kV according to patient size, use of iterative reconstruction technique) 2010 [employer]- All Rights Reserved
[2016-08-11] MEDS: HYDROMORPHONE HCL INJ/PF 2 MG/ML AMPULE IV PRN ×2 (16:41→20:57)
--- NOTE | 2016-08-11 18:42 | EKG REPORT ---
SEVERITY:- BORDERLINE ECG - SECOND DEGREE HEART BLOCK WITH MOBITZ TYPE 1, WENC[place]BACH WITH BRADYCARDIA ANTERIOR T WAVE CHANGES, CONSIDER ISCHEMIA BORDERLINE RIGHT AXIS DEVIATION BORDERLINE PROLONGED QT INTERVAL : Confirmed by: Marika Martinez 11-Aug-2016 18:41:18
--- NOTE | 2016-08-11 18:44 | EKG REPORT ---
SEVERITY:- ABNORMAL ECG - HIGH GRADE AV BLOCK, GROUPED BEATING SUGGEST WENCHEBACH BORDERLINE RIGHT AXIS DEVIATION NONSPECIFIC T ABNORMALITIES, ANTERIOR LEADS BORDERLINE PROLONGED QT INTERVAL : Confirmed by: Marika Martinez 11-Aug-2016 18:43:34
[2016-08-12] MEDS: PIPERACILLIN SODIUM/TAZOBACTAM 4.5 GM in NORMAL SALINE 100 ML IV SCH (00:07)
[2016-08-12] MEDS: NORMAL SALINE 1000 ML 1,000 ML IV PRN ×2 (00:09→05:10)
[2016-08-12] MEDS: LORAZEPAM INJ 2 MG/1 ML VIAL IV PRN ×3 (00:53→10:46)
[2016-08-12] MEDS: HYDROMORPHONE HCL INJ/PF 2 MG/ML AMPULE IV PRN ×4 (03:12→20:37)
[2016-08-12] MEDS: PROMETHAZINE HCL INJ 25 MG/1 ML VIAL IV PRN ×3 (04:23→22:15)
[2016-08-12 05:24] LABS: ABSOLUTE BASOPHILS # (AUTO) 0.1 10^3/uL (0.0-0.2); ABSOLUTE LYMPHOCYTES (AUTO) 0.7 10^3/uL (0.5-4.7); ABSOLUTE NEUT (AUTO) 10.3 10^3/uL (1.7-8.2); BASOPHILS % (AUTO) 0.6 % (0-2); EOSINOPHILS % (AUTO) 0.2 % (0-6); HEMATOCRIT 29.4 % (37.9-51.0); HEMOGLOBIN 9.3 g/dL (13.5-17.0); HGB HCT DIFFERENCE -1.5; LYMPHOCYTES % (AUTO) 5.7 % (13-45); MEAN CORPUSCULAR HGB CONC 31.8 g/dL (32.0-36.0); MEAN CORPUSCULAR VOLUME 76 fl (80-97); RED BLOOD COUNT 3.89 10^6/uL (4.35-5.55); RED CELL DISTRIBUTION WIDTH 16.7 % (11.5-14.0); SEGMENTED NEUTROPHILS % (AUTO) 85.5 % (42-78)
[2016-08-12 05:33] LABS: ANION GAP 15 (5-19); BLOOD UREA NITROGEN 14 mg/dL (7-20); CALCIUM 8.1 mg/dL (8.4-10.2); CARBON DIOXIDE 21 mmol/L (22-30); CHLORIDE 107 mmol/L (98-107); CREATININE RESULT 1.18 mg/dL (0.52-1.25); GLUCOSE 67 mg/dL (75-110); POTASSIUM 3.2 mmol/L (3.6-5.0); SODIUM 142.9 mmol/L (137-145)
--- NOTE | 2016-08-12 07:50 | EKG REPORT ---
SEVERITY:- BORDERLINE ECG - SINUS RHYTHM BORDERLINE T ABNORMALITIES, ANTERIOR LEADS : Confirmed by: Marika Martinez 12-Aug-2016 07:49:11
--- NOTE | 2016-08-12 08:32 | PDOC PROGRESS REPORT ---
Subjective Progress Note for:: 08/12/16 Subjective:: No acute events overnight Physical Exam Vital Signs: Temp Pulse Resp BP Pulse Ox 98.3 F 66 16 132/76 H 100 08/12/16 03:33 08/12/16 07:00 08/12/16 03:33 08/12/16 03:33 08/12/16 03:33 Intake & Output 08/11/16 08/12/16 08/13/16 06:59 06:59 06:59 Intake Total 4844 4361 Output Total 2950 1275 Balance 1894 3086 General appearance: PRESENT: no acute distress, well-developed, well-nourished Head exam: PRESENT: atraumatic, normocephalic Eye exam: PRESENT: conjunctiva pink, EOMI, PERRLA. ABSENT: scleral icterus Ear exam: PRESENT: normal external ear exam Mouth exam: PRESENT: moist, tongue midline Neck exam: ABSENT: carotid bruit, JVD, lymphadenopathy, thyromegaly Respiratory exam: PRESENT: clear to auscultation luisa. ABSENT: rales, rhonchi, wheezes Cardiovascular exam: PRESENT: RRR. ABSENT: diastolic murmur, rubs, systolic murmur Pulses: PRESENT: normal dorsalis pedis pul Vascular exam: PRESENT: normal capillary refill GI/Abdominal exam: PRESENT: normal bowel sounds, soft. ABSENT: distended, guarding, mass, organolmegaly, rebound, tenderness Rectal exam: PRESENT: deferred Extremities exam: PRESENT: full ROM. ABSENT: calf tenderness, clubbing, pedal edema Neurological exam: PRESENT: alert, awake, oriented to person, oriented to place , oriented to time, oriented to situation, CN II-XII grossly intact. ABSENT: motor sensory deficit Psychiatric exam: PRESENT: appropriate affect, normal mood. ABSENT: homicidal ideation, suicidal ideation Skin exam: PRESENT: dry, intact, warm. ABSENT: cyanosis, rash Results Laboratory Results: 08/12/16 04:05 08/12/16 04:05 08/12/16 08/12/16 04:05 04:05 WBC 12.0 H RBC 3.89 L Hgb 9.3 L Hct 29.4 L MCV 76 L MCH 24.0 L MCHC 31.8 L RDW 16.7 H Plt Count 644 H Seg Neutrophils % 85.5 H Lymphocytes % 5.7 L Monocytes % 8.0 Eosinophils % 0.2 Basophils % 0.6 Absolute Neutrophils 10.3 H Absolute Lymphocytes 0.7 Absolute Monocytes 1.0 Absolute Eosinophils 0.0 Absolute Basophils 0.1 Sodium 142.9 Potassium 3.2 L Chloride 107 Carbon Dioxide 21 L Anion Gap 15 BUN 14 Creatinine 1.18 Est GFR ( Amer) > 60 Est GFR (Non-Af Amer) > 60 Glucose 67 L Calcium 8.1 L Impressions: Abdomen/Pelvis CT 08/11/16 00:00 IMPRESSION: Very limited scan due the lack of IV and oral contrast. Stable ascites in the abdomen and pelvis compared to 08/04/2016. No gross free intraperitoneal air. Assessment & Plan - Diagnosis (1) Peritonitis (acute) generalized Is this a current diagnosis for this admission?: YesPlan: Still with nausea, CT imaging did not show anything new, will now sign off this case, do not know what else to offer, will leave this up to hospitalist team to see what to do. (2) Colon cancer metastasized to liver Is this a current diagnosis for this admission?: YesPlan: He will continue treatment as an outpatient with Dr. Lewis of [facility]. Will sign off thank you for the opportunity to assist in this patient's care. - Time Time Spent with patient: 25-34 minutes Critical Time spent with patient: 25-34 minutes
[2016-08-12] MEDS ORDERED: CLINDAMYCIN 600 MG/D5W RTU 600 MG/50 ML RTUPB IV SCH (10:00)
--- NOTE | 2016-08-12 10:08 | PDOC PROGRESS REPORT ---
Subjective Progress Note for:: 08/12/16 Subjective:: Patient has continued nausea and vomiting. His spouse also states he has been confused. She states that he has been having mucousy bowel movement from the rectum. He still has colostomy output as well. He denies abdominal pain. He denies headache. Physical Exam Vital Signs: Temp Pulse Resp BP Pulse Ox 98.5 F 64 16 110/65 99 08/12/16 07:39 08/12/16 07:39 08/12/16 07:39 08/12/16 07:39 08/12/16 07:39 Intake & Output 08/11/16 08/12/16 08/13/16 06:59 06:59 06:59 Intake Total 4844 4361 Output Total 2950 1275 Balance 1894 3086 GENERAL: No acute distress HEENT: Conjunctiva clear, nonicteric, moist mucous membranes, no JVD, midline trachea RESPIRATORY: Clear to auscultation bilaterally, no wheezes, no rhonchi CARDIAC: Regular rate and rhythm, no murmurs/gallops/rubs ABDOMEN: Soft, nondistended, nontender, diminished bowel sounds, no rebound, no guarding. colostomy present EXTREMETIES: No edema, cyanosis, clubbing NEUROLOGIC: Alert, oriented to person/place/time, CN's grossly intact, no focal deficits SKIN: No rash, wounds PSYCH: Normal mood, normal affect Results Laboratory Results: 08/12/16 04:05 08/12/16 04:05 08/12/16 08/12/16 04:05 04:05 WBC 12.0 H RBC 3.89 L Hgb 9.3 L Hct 29.4 L MCV 76 L MCH 24.0 L MCHC 31.8 L RDW 16.7 H Plt Count 644 H Seg Neutrophils % 85.5 H Lymphocytes % 5.7 L Monocytes % 8.0 Eosinophils % 0.2 Basophils % 0.6 Absolute Neutrophils 10.3 H Absolute Lymphocytes 0.7 Absolute Monocytes 1.0 Absolute Eosinophils 0.0 Absolute Basophils 0.1 Sodium 142.9 Potassium 3.2 L Chloride 107 Carbon Dioxide 21 L Anion Gap 15 BUN 14 Creatinine 1.18 Est GFR ( Amer) > 60 Est GFR (Non-Af Amer) > 60 Glucose 67 L Calcium 8.1 L Impressions: Abdomen/Pelvis CT 08/11/16 00:00 IMPRESSION: Very limited scan due the lack of IV and oral contrast. Stable ascites in the abdomen and pelvis compared to 08/04/2016. No gross free intraperitoneal air. Assessment & Plan - Diagnosis (1) Peritonitis (acute) generalized Is this a current diagnosis for this admission?: YesPlan: Discontinue IV Zosyn. Start IV Cipro and IV Flagyl. We will need to maintain patient on IV antibiotics until he is able to take good oral intake. (2) Colon cancer Qualifiers: Colon location: unspecified part of colon Qualified Code(s): C18.9 - Malignant neoplasm of colon, unspecified Is this a current diagnosis for this admission?: YesPlan: Patient is status post ileostomy. He is followed by Dr. Veronica Lewis of oncology in [facility] as an outpatient. (3) Bradycardia Is this a current diagnosis for this admission?: Yes (4) Nausea & vomiting Qualifiers: Vomiting type: unspecified Vomiting Intractability: non-intractable Qualified Code(s): R11.2 - Nausea with vomiting, unspecified Is this a current diagnosis for this admission?: YesPlan: Check CT scan of the head given history of stage IV cancer and noted bradycardia. (5) Acute renal failure Qualifiers: Acute renal failure type: unspecified Qualified Code(s): N17.9 - Acute kidney failure, unspecified Is this a current diagnosis for this admission?: YesPlan: Resolved. (6) Full code status Is this a current diagnosis for this admission?: Yes - Time Time Spent with patient: 35 or more minutes
[2016-08-12] MEDS: FAMOTIDINE INJ/PF 20 MG/2 ML SDV IV SCH ×2 (10:13→21:03)
[2016-08-12] MEDS: ENOXAPARIN SODIUM INJ 40 MG/0.4 ML DISP.SYRIN SUBCUT SCH (10:13)
[2016-08-12] MEDS: POTASSI CL 20 MEQ/D5-1/2NS 1L 1,000 ML IV PRN (11:32)
--- NOTE | 2016-08-12 11:35 | RADIOLOGY REPORT (SQ) ---
EXAM DESCRIPTION: CT HEAD COMBO COMPLETED DATE/TIME: 08/12/2016 11:19 am REASON FOR STUDY: stage 4 cancer, N/V COMPARISON: CT brain 05/28/2013 CT abdomen pelvis 08/11/2016 TECHNIQUE: Axial images acquired through the brain without and with intravenous contrast. Images re viewed with bone, brain and subdural windows. Images stored on PACS. All CT scanners at this facility use dose modulation, iterative reconstruction, and/or weight based d osing when appropriate to reduce radiation dose to as low as reasonably achievable (ALARA). [facility]: Dose Right [facility]: CareDose [facility]: Dose Right [facility]: Teradose 4D [facility]: [employer] CONTRAST TYPE AND DOSE: 50mL Isovue 370- low osmolar. RENAL FUNCTION: Creatinine 1.2 RADIATION DOSE: Up-to-date CT equipment and radiation dose reduction techniques were employed. CTDIv ol: 49.0 mGy. DLP: 1762 mGy-cm.. LIMITATIONS: Very mild motion artifact FINDINGS: VENTRICLES: Normal size and contour. CEREBRUM: No masses. No hemorrhage. No midline shift. Normal jean/white matter differentiation. No ev idence for acute infarction. No enhancing lesions. CEREBELLUM: No masses. No hemorrhage. No alteration of density. No evidence for acute infarction. No enhancing lesions. EXTRA-AXIAL SPACES: No fluid collections. No enhancing lesions. ORBITS AND GLOBE: No intra- or extraconal masses. Normal contour of globe without masses. CALVARIUM: No fracture. PARANASAL SINUSES: No fluid or mucosal thickening. SOFT TISSUES: No mass or hematoma. OTHER: No other significant finding. IMPRESSION: NORMAL BRAIN CT WITHOUT AND WITH CONTRAST. TECHNICAL DOCUMENTATION: JOB ID: [id number] Quality ID # [id number]: Final reports with documentation of one or more dose reduction techniques (e.g., Au tomated exposure control, adjustment of the mA and/or kV according to patient size, use of iterative reconstruction technique) 2010 [employer]- All Rights Reserved
[2016-08-12] MEDS: CIPROFLOXACIN 400 MG/D5W RTU 400 MG/200 ML RTUPB IV SCH ×2 (12:00→22:15)
[2016-08-12] MEDS: ONDANSETRON HCL INJ/PF 4 MG/2 ML SDV IV PRN (12:01)
[2016-08-12] MEDS: METRONIDAZOLE 500 MG/NS RTU 100 ML IV SCH ×3 (14:04→23:27)
--- NOTE | 2016-08-12 22:19 | PROGRESS NOTE E ---
Progress Note NAME: JERE CRUZ : 1975 AGE: 41Y DATE: 08/12/2016 ROOM: 308 SUBJECTIVE: The patient still is drowsy and earlier this morning appeared to be drowsy. He had a CAT scan of the head to make sure there is no metastasis and this was negative. The patient continues to have high-grade AV block episodes with stable blood pressure. This is because of his nausea and vomiting and retching, which he has continued. He also has abdominal pain but that seems to be much better. OBJECTIVE: GENERAL: He is well-built, appears to be chronically ill in some distress due to nausea and retching. VITAL SIGNS: He is afebrile with a temperature of 98.4 degrees Fahrenheit, pulse is 68 beats per minute, blood pressure 119/79, respirations are 16 per minute and 02 sats are 100% on room air. EYES: Pupils are equal, round, regular, reactive to light and accommodation. Extraocular movements are normal. There is no conjunctival pallor. There is no scleral icterus. ENT is negative. NECK: Supple. There is no JVD. Carotids are equal. There is no bruit. There is no goiter. There is no lymphadenopathy. Trachea is central. LUNGS: Clear to auscultation and percussion. HEART: S1 and S2 are heard. There is no S4 gallop. There is no S3 gallop. There is a systolic murmur at left sternal border at the apex. There is no rub. ABDOMEN: Soft. There seems to be no discomfort on deep palpation. There is no hepatosplenomegaly. Bowel sounds are well heard. EXTREMITIES: Femorals are fairly diminished. There are no femoral bruits. Leg pulses are well felt. There is no pedal edema. There is no DVT or cellulitis. CENTRAL NERVOUS SYSTEM: The patient is drowsy but oriented x3 when awakened. He has no focal deficits. PSYCHIATRIC: The patient appears to be depressed and slightly drowsy but when awakened, his judgment and insight seem to be intact. DIAGNOSTIC TEST RESULTS: The patient's EKG shows sinus rhythm with borderline T abnormalities in the anterior leads. Rhythm strips show intermittent high-grade AV block, but the patient's blood pressure is stable and there is no hemodynamic compromises. The white count is 12,000, hemoglobin 9.3, hematocrit is 29.4, platelet count is 644,000. The patient's sodium is 142.9, potassium is 3.2, chloride 107, CO2 is 21, the patient's BUN is 14, creatinine 1.18, GFR is greater than 60, glucose is 67 and his calcium is 8.1. IMPRESSION: 1. INTERMITTENT HIGH-GRADE AV BLOCK (COMPLETE HEART BLOCK WITH JUNCTIONAL ESCAPE RHYTHM AND COMPLETE HEART BLOCK WITH THIRD DEGREE AV BLOCK) SECONDARY TO *------* DUE TO NAUSEA, VOMITING, AND RETCHING. 2. INTRACTABLE NAUSEA, VOMITING AND RETCHING. Most likely secondary to his GI problem which is peritonitis. 3. PERITONITIS WHICH IS IMPROVING. Continue antibiotics. 4. COLORECTAL CANCER WITH METS TO THE LIVER. There is no evidence of any abscess. PLAN: Would keep the patient around the clock on antiemetic agents to prevent the patient from having nausea and retching. The patient does not require temporary or permanent pacemaker at present. Would recommend keeping the patient free of pain and free of nausea and vomiting and retching. Cardiac status seems to be stable. Will sign off as discussed with the hospitalist. Note 25 minutes spent on this patient with more than 50% of the time spent on direct patient care. Also his medications have been reviewed and also discussed with the patient's mother and the patient. Note, would strongly recommend avoiding Reglan since this can cause bradycardia. This is moderately complex medical decision-making involved in this case. Thanking you. DICTATING PHYSICIAN: CHELA CARDOZA M.D. [id number] PHY#: [id number] ID: [id number] JOB#: [id number] ACCT: [id number] cc: >
[2016-08-13] MEDS: HYDROMORPHONE HCL INJ/PF 2 MG/ML AMPULE IV PRN ×6 (02:01→21:37)
[2016-08-13] MEDS: POTASSI CL 20 MEQ/D5-1/2NS 1L 1,000 ML IV PRN ×2 (02:03→14:17)
[2016-08-13] MEDS: PROMETHAZINE HCL INJ 25 MG/1 ML VIAL IV PRN ×2 (04:28→22:43)
[2016-08-13 04:57] LABS: ABSOLUTE BASOPHILS # (AUTO) 0.1 10^3/uL (0.0-0.2); ABSOLUTE EOSINOPHILS # (AUTO) 0.1 10^3/uL (0.0-0.6); ABSOLUTE LYMPHOCYTES (AUTO) 0.8 10^3/uL (0.5-4.7); ABSOLUTE MONOCYTES (AUTO) 1.1 10^3/uL (0.1-1.4); ABSOLUTE NEUT (AUTO) 12.2 10^3/uL (1.7-8.2); BASOPHILS % (AUTO) 0.8 % (0-2); EOSINOPHILS % (AUTO) 0.4 % (0-6); HEMATOCRIT 30.4 % (37.9-51.0); HEMOGLOBIN 9.5 g/dL (13.5-17.0); HGB HCT DIFFERENCE -1.9; LYMPHOCYTES % (AUTO) 5.7 % (13-45); MEAN CORPUSCULAR HEMOGLOBIN 23.8 pg (27.0-33.4); MEAN CORPUSCULAR HGB CONC 31.2 g/dL (32.0-36.0); MEAN CORPUSCULAR VOLUME 76 fl (80-97); MONOCYTES % (AUTO) 7.6 % (3-13); RED BLOOD COUNT 3.98 10^6/uL (4.35-5.55); RED CELL DISTRIBUTION WIDTH 16.5 % (11.5-14.0); SEGMENTED NEUTROPHILS % (AUTO) 85.5 % (42-78); WHITE BLOOD COUNT 14.3 10^3/uL (4.0-10.5)
[2016-08-13] MEDS: METRONIDAZOLE 500 MG/NS RTU 100 ML IV SCH ×3 (05:03→18:23)
[2016-08-13 05:20] LABS: ANION GAP 12 (5-19); BLOOD UREA NITROGEN 9 mg/dL (7-20); CALCIUM 8.1 mg/dL (8.4-10.2); CARBON DIOXIDE 26 mmol/L (22-30); CHLORIDE 102 mmol/L (98-107); GLUCOSE 92 mg/dL (75-110); POTASSIUM 3.1 mmol/L (3.6-5.0); SODIUM 139.8 mmol/L (137-145)
[2016-08-13] MEDS ORDERED: POTASSI CL 20 MEQ/50 ML RIDER 20 MEQ/50 ML RTUPB IV ONE (08:00)
[2016-08-13] MEDS: ONDANSETRON HCL INJ/PF 4 MG/2 ML SDV IV PRN ×3 (08:20→20:55)
--- NOTE | 2016-08-13 09:40 | PDOC PROGRESS REPORT ---
Subjective Progress Note for:: 08/13/16 Subjective:: Patient is overall feeling better. He did have one episode of vomiting this morning. His pain is controlled. He denies fever, chills, headache, chest pain , shortness of breath. Physical Exam Vital Signs: Temp Pulse Resp BP Pulse Ox 98.5 F 77 16 123/76 99 08/13/16 07:49 08/13/16 07:49 08/13/16 07:49 08/13/16 07:49 08/13/16 07:49 Intake & Output 08/12/16 08/13/16 08/14/16 06:59 06:59 06:59 Intake Total 4361 2860 Output Total 1275 2150 Balance 3086 710 GENERAL: No acute distress HEENT: Conjunctiva clear, nonicteric, moist mucous membranes, no JVD, midline trachea RESPIRATORY: Clear to auscultation bilaterally, no wheezes, no rhonchi CARDIAC: Regular rate and rhythm, no murmurs/gallops/rubs ABDOMEN: Soft, nondistended, nontender, diminished bowel sounds, no rebound, no guarding. colostomy present with good stool output EXTREMETIES: No edema, cyanosis, clubbing NEUROLOGIC: Alert, oriented to person/place/time, CN's grossly intact, no focal deficits SKIN: No rash, wounds PSYCH: Normal mood, normal affect Results Laboratory Results: 08/13/16 04:20 08/13/16 04:20 08/13/16 08/13/16 04:20 04:20 WBC 14.3 H RBC 3.98 L Hgb 9.5 L Hct 30.4 L MCV 76 L MCH 23.8 L MCHC 31.2 L RDW 16.5 H Plt Count 634 H Seg Neutrophils % 85.5 H Lymphocytes % 5.7 L Monocytes % 7.6 Eosinophils % 0.4 Basophils % 0.8 Absolute Neutrophils 12.2 H Absolute Lymphocytes 0.8 Absolute Monocytes 1.1 Absolute Eosinophils 0.1 Absolute Basophils 0.1 Sodium 139.8 Potassium 3.1 L Chloride 102 Carbon Dioxide 26 Anion Gap 12 BUN 9 Creatinine 1.10 Est GFR ( Amer) > 60 Est GFR (Non-Af Amer) > 60 Glucose 92 Calcium 8.1 L Impressions: Abdomen/Pelvis CT 08/11/16 00:00 IMPRESSION: Very limited scan due the lack of IV and oral contrast. Stable ascites in the abdomen and pelvis compared to 08/04/2016. No gross free intraperitoneal air. Head CT 08/12/16 00:00 IMPRESSION: NORMAL BRAIN CT WITHOUT AND WITH CONTRAST. Assessment & Plan - Diagnosis (1) Peritonitis (acute) generalized Is this a current diagnosis for this admission?: YesPlan: Continue IV Cipro and IV Flagyl. We will need to maintain patient on IV antibiotics until he is able to take good oral intake. (2) Colon cancer Qualifiers: Colon location: unspecified part of colon Qualified Code(s): C18.9 - Malignant neoplasm of colon, unspecified Is this a current diagnosis for this admission?: YesPlan: Patient is status post ileostomy. He is followed by Dr. Veronica Lewis of oncology in [facility] as an outpatient. I have personally discussed the case with Dr. Lewis today. (3) Bradycardia Is this a current diagnosis for this admission?: Yes (4) Nausea & vomiting Qualifiers: Vomiting type: unspecified Vomiting Intractability: non-intractable Qualified Code(s): R11.2 - Nausea with vomiting, unspecified Is this a current diagnosis for this admission?: YesPlan: Head CT negative. Possibly secondary to relative opiate withdrawal as patient normally takes Dilaudid 8 mg every 4 hours as an outpatient. Continue IV fluids until taking good oral intake. Continue antiemetics. (5) Acute renal failure Qualifiers: Acute renal failure type: unspecified Qualified Code(s): N17.9 - Acute kidney failure, unspecified Is this a current diagnosis for this admission?: YesPlan: Resolved. (6) Full code status Is this a current diagnosis for this admission?: Yes - Time Time Spent with patient: 35 or more minutes
[2016-08-13] MEDS: FAMOTIDINE INJ/PF 20 MG/2 ML SDV IV SCH ×2 (10:16→21:38)
[2016-08-13] MEDS: ENOXAPARIN SODIUM INJ 40 MG/0.4 ML DISP.SYRIN SUBCUT SCH (10:16)
[2016-08-13] MEDS: CIPROFLOXACIN 400 MG/D5W RTU 400 MG/200 ML RTUPB IV SCH ×2 (10:24→22:33)
--- NOTE | 2016-08-13 12:09 | CONSULTATION REPORT E ---
Consultation Report NAME: JERE CRUZ : 1975 AGE: 41Y DATE: 308 A TO: CHELA CARDOZA M.D. FROM: NORBERTO OJEDA M.D. Requesting Physician REASON FOR CONSULTATION: The patient with episodes of bradycardia, which seems to be junctional bradycardia and also complete heart block. HISTORY: The patient is a 41-year-old -[place] male with history of colon cancer and metastasis to the lung who was admitted on 08/04/2016 with abdominal pain, nausea, vomiting, retching. He was diagnosed as having peritonitis. He was also getting Reglan. The last dose was yesterday morning, the morning of 08/10/2016. He was noted to have bradycardic episodes, which was sudden. On examination, even though the blood pressure was stable the patient complained of generalized weakness, but the generalized weakness he has had since admission because of the abdominal pain, nausea, vomiting and also retching. He also is in pain, which seems to be slightly better controlled as per the patient, but still does have some pain. Review of the strips showed that the patient has junctional bradycardia with a stable blood pressure and also complete heart block. He states that in [place] the same thing happened and that his heart rate went down into the 30's and they just observed him and did not treat him. No pacemaker was advised. Note that the QRS are narrow complex. He denies any chest pain or discomfort. There is no PND, orthopnea or leg edema, but the patient is in significant distress due to nausea, retching, vomiting and pain, all which factors can cause increased and sent the patient into junctional bradycardia and complete heart block. PAST MEDICAL HISTORY: Negative for hypertension, coronary artery disease, DC, anginal symptoms, congestive heart failure, asthma, COPD or hypertension. He has no history of chronic kidney disease. He has a diagnosis of colon cancer, status post ileostomy. He also has metastasis to the liver. There is no history of TIA, CVA. There is no history of diabetes mellitus or thyroid disease. There is no history of anxiety or depression, but the patient appears to be miserable and seems to be very drowsy and depressed. The patient also had been having fevers, chills or rigors prior to admission. PAST SURGICAL HISTORY: Positive for: 1. Appendectomy. 2. Cholecystectomy. 3. Ileostomy. 4. Total colectomy for colorectal cancer. SOCIAL HISTORY: The patient does not smoke. There is no history of EtOH abuse. DISPOSITION: The patient is a FULL CODE. His is his surrogate healthcare decision maker. FAMILY HISTORY: Mother had diabetes mellitus. No history of coronary artery disease or hypertension in siblings. ALLERGIES: He has no known allergies. MEDICATIONS: 1. Tylenol 650 mg p.o. q.4 h. p.r.n. 2. Glucose 40% gel 15 g p.o. p.r.n. and 30 g p.o. p.r.n. hypoglycemia. 3. He is on hypoglycemic precautions with dextrose 50% 12.5 mg and 25 g IV p.r.n. 4. Lovenox 40 mg subcutaneously daily. 5. Pepcid 20 mg IV q.12 h. 6. Glucagon 1 mg subcutaneously p.r.n. 7. Hydromorphone 0.5 mg IV q.3 h. p.r.n. 8. Piperacillin 4.5 g IV piggyback q.6 h. 9. He is on normal saline at 175 mL/h. 10. Lorazepam 1 mg IV q.4 h. p.r.n. 11. Zofran 4 mg IV q.6 h. p.r.n. 12. Phenergan 25 mg IV q.6h. p.r.n. Note that the patient's Phenergan has been held by the nurses last night due to the patient being slightly bradycardic. REVIEW OF SYMPTOMS: CONSTITUTIONAL: The patient had fever, chills and rigors with abdominal pain. HEAD: Denies any headaches. EYES: No history of amblyopia or diplopia. No history of amaurosis fugax. EARS: No history of hearing loss. No history of recurrent ear infection. No history of tinnitus. No history of vertigo. NOSE: No deviated nasal septum. There is no inflammation of the nasal mucous membranes. MOUTH: No history of ulcers in the mouth. No history of altered taste sensation. No bleeding from the gums. THROAT: No odynophagia or dysphagia. No recurrent sore throat. SKIN: There is no pleuritis. There is no psoriasis. There is no history of skin cancer. NECK: Denies any neck pain. There is no goiter. There is no swelling in the neck. LUNGS: No history of cough or sputum production. No history of wheezing. No history of asthma or COPD. No history of sleep apnea. No history of pulmonary embolism. No history of hemoptysis. No history of pleuritic chest pain. CARDIOVASCULAR: No history of coronary artery disease, DC or anginal symptoms. No history of congestive heart failure. No history of PND or orthopnea. No history of leg edema. No history of near syncope or syncope. No history of congestive heart failure. No history of hypertension. No history of congenital heart disease. No history of palpitations or syncope. Note that the patient states that when he was in [place] with abdominal pain at that time he was noted to be bradycardic, but they just observed him and did not recommend a pacemaker. GASTROINTESTINAL: History of colorectal cancer, status post colectomy now with mets to the liver. The patient is on maintenance chemotherapy. The patient refused to be transferred to a tertiary care for emergency surgery in view of the patient's abdominal pain. The patient was admitted with abdominal pain and also seems to have intractable nausea, vomiting and retching. No history of GI bleed. RENAL: No history of chronic kidney disease. No history of symptoms of UTI. No history of hematuria, pyuria or dysuria. MUSCULOSKELETAL: Denies arthritis or collagen vascular disease. CENTRAL NERVOUS SYSTEM: No history of TIA or CVA. No history of seizures, headaches or migraines. PSYCHIATRIC: The patient's judgment and insight are intact, even though he is drowsy. His affect is withdrawn. The patient appears to be depressed. VASCULAR: There is no history of calf or buttock claudication. No history of DVT. HEMATOLOGIC: No history of bleeding diathesis. No history of clotting disorders. PHYSICAL EXAMINATION: VITAL SIGNS: He is afebrile with a temperature of 98 degrees Fahrenheit, pulse is 45 beats per minute. The monitor shows complete heart block. The EKG showed junctional bradycardia. Blood pressure is 108/59, respirations 20 per minute. O2 sat is 99% on room air. GENERAL: The patient is well-built and well-nourished in distress due to nausea, retching and vomiting. There is no coffee-grounds. The patient is well-built and appears to be slightly mal-nourished. He is well groomed. Note that the patient states that he has generalized fatigue and weakness, but this has not increased with the heart rate going down. He has had these symptoms since admission. HEENT: Head is atraumatic, normocephalic. EYES: Pupils are equal, round, regular, reactive to light and accommodation. Extraocular movements are normal. There is no conjunctival pallor. There is no scleral icterus. EARS: Tympanic membranes are intact. External auditory canals are clear. NOSE: There is no deviated nasal septum. There is no inflammation of the nasal mucous membranes. MOUTH: Mucous membranes of the mouth are slightly dry. Tongue is dry. There are no ulcers. There is no bleeding from the gums. THROAT: There is no redness of the oropharynx. There are no exudates. SKIN: There are no skin lesions. NECK: Supple. There is no JVD. Carotids are equal. There is no bruit. There is no lymphadenopathy. There is no goiter. Trachea is central. LUNGS: Clear to auscultation and percussion. There is no chest wall tenderness. HEART: S1 and S2 are heard. There is no S4 gallop. There is no S3 gallop. There is a systolic murmur at left sternal border at the apex. There is no rub. ABDOMEN: Soft, nontender. There is no hepatosplenomegaly. Bowel sounds are well heard. On deep palpation, there does not seem to be any discomfort today. There is no hepatosplenomegaly. EXTREMITIES: Femorals are well felt. Leg pulses are well felt. There is no pedal edema. There is no DVT or cellulitis. There is no cyanosis or clubbing. CENTRAL NERVOUS SYSTEM: The patient is conscious, awake, drowsy, but there are no focal deficits. PSYCHIATRIC: In spite of the patient's drowsiness, his judgement and insight are intact. He appears to be slightly depressed. His affect is withdrawn. DIAGNOSTIC TEST RESULTS: The patient's abdominal and pelvis CT shows very limited scan due to lack of IV contrast abdomen and pelvis. No free retroperitoneal air. The patient's EKG done this morning shows sinus arrhythmia, probable left atrial enlargement, nonspecific ST abnormalities in anterior leads. There is prolonged QTC. His EKG done later this morning shows complete heart block with mild QRS complexes. Serial EKG showed junctional bradycardia. The patient's echocardiogram shows the left ventricle is normal size. There is no LVH. LV ejection fraction is normal at 65%. The left ventricular systolic function is normal. The Doppler measurements suggest normal left ventricular diastolic function. The left ventricular wall motion is normal. There is no thrombus. The right atrium is normal. The left atrial size is normal. The interior atrial septum is intact. There is no evidence of mitral valve prolapse. There is no mitral valve stenosis. There is trace amount of mitral regurgitation. There is no aortic valve stenosis. There is no aortic regurgitation. There is no LVOT obstruction. There is no aortic valve ring abscess. There is no tricuspid stenosis. There is trace amount of tricuspid regurgitation. The right ventricular systolic pressure is normal. RVSP is 27 mmHg with RA mean of 5. There is trace pericardial effusion with no evidence of tamponade. The aortic root is of normal size. There is no aortic regurgitation. The patient's white count is 14,200, hemoglobin 9.0, hematocrit is 28.6, platelet count is 591,000. The patient's C. difficile toxin is negative. The patient's sodium is 141, potassium is low at 3.5, chloride 110, CO2 is 19. The patient's BUN is 16, creatinine 1.52. GFR is greater than 60. The patient's magnesium on 08/07/2016 was 1.7. IMPRESSION: 1. Junctional bradycardia and complete heart block with narrow complex QRS complexes and also prolonged QTC. This is most likely secondary to due to the patient having nausea, vomiting, retching and abdominal pain. Note, I gave the patient 0.6 mg of atropine and the patient went into sinus rhythm, but the patient is likely going to have recurrence. Would recommend discontinuing the patient's Reglan since this can cause bradycardia and prolonged QTC interval, which may cause even more problems with the patient's already being high. At present there is no indication for permanent pacemaker since the patient's blood pressure is stable. Note after I gave the patient 0.6 mg of atropine IV, his heart rate came up to 81 beats/minute, blood pressure 145/82 and now the vital signs are stable. Also there is no evidence of aortic valve abscess, which can cause bradycardia. 2. Nausea, vomiting, retching and abdominal pain. Would recommend strongly to treat this aggressively to prevent increased . 3. Peritonitis. 4. Colon cancer with liver mets. 5. Leukocytosis, most likely due to peritonitis. Note that the patient is on antibiotics, we will continue that. The patient is also on IV fluids, we will continue that. We will follow you closely. Note the patient was seen at 10:00 a.m. Thirty minutes spent on the patient including I was there when the nurses gave the patient atropine and I watched the reaction to the atropine. More than 50% of the time was spent on direct patient care. Discussed with other care giving providers on the case. Discussed with attending physician and also the patient and later with the patient's family. Echocardiogram findings were discussed with them. Note that this case involved highly complex medical decision-making in view of the patient's bradycardia and complete heart block. We will follow with you. > @ DICTATING PHYSICIAN: Josué OBREGON [id number] PHY#: [id number] ID: [id number] JOB#: [id number] ACCT: [id number] cc:CHELA CARDOZA M.D. >
[2016-08-14] MEDS: METRONIDAZOLE 500 MG/NS RTU 100 ML IV SCH ×4 (00:20→18:18)
[2016-08-14] MEDS: HYDROMORPHONE HCL INJ/PF 2 MG/ML AMPULE IV PRN ×6 (01:49→22:26)
[2016-08-14] MEDS: POTASSI CL 20 MEQ/D5-1/2NS 1L 1,000 ML IV PRN ×2 (04:07→22:27)
[2016-08-14 06:47] LABS: ABSOLUTE BASOPHILS # (AUTO) 0.1 10^3/uL (0.0-0.2); ABSOLUTE EOSINOPHILS # (AUTO) 0.1 10^3/uL (0.0-0.6); ABSOLUTE LYMPHOCYTES (AUTO) 0.8 10^3/uL (0.5-4.7); ABSOLUTE MONOCYTES (AUTO) 1.1 10^3/uL (0.1-1.4); ABSOLUTE NEUT (AUTO) 13.5 10^3/uL (1.7-8.2); BASOPHILS % (AUTO) 0.7 % (0-2); EOSINOPHILS % (AUTO) 0.3 % (0-6); HEMATOCRIT 30.9 % (37.9-51.0); HEMOGLOBIN 9.6 g/dL (13.5-17.0); HGB HCT DIFFERENCE -2.1; LYMPHOCYTES % (AUTO) 5.3 % (13-45); MEAN CORPUSCULAR HEMOGLOBIN 23.5 pg (27.0-33.4); MEAN CORPUSCULAR VOLUME 76 fl (80-97); MONOCYTES % (AUTO) 6.8 % (3-13); RED BLOOD COUNT 4.08 10^6/uL (4.35-5.55); RED CELL DISTRIBUTION WIDTH 16.5 % (11.5-14.0); SEGMENTED NEUTROPHILS % (AUTO) 86.9 % (42-78); WHITE BLOOD COUNT 15.6 10^3/uL (4.0-10.5)
[2016-08-14 07:07] LABS: ANION GAP 15 (5-19); BLOOD UREA NITROGEN 6 mg/dL (7-20); CALCIUM 8.2 mg/dL (8.4-10.2); CARBON DIOXIDE 23 mmol/L (22-30); CHLORIDE 102 mmol/L (98-107); CREATININE RESULT 1.03 mg/dL (0.52-1.25); GLUCOSE 84 mg/dL (75-110); POTASSIUM 3.5 mmol/L (3.6-5.0); SODIUM 139.8 mmol/L (137-145)
[2016-08-14] MEDS: ONDANSETRON HCL INJ/PF 4 MG/2 ML SDV IV PRN ×2 (08:27→16:41)
--- NOTE | 2016-08-14 08:59 | PDOC PROGRESS REPORT ---
Subjective Progress Note for:: 08/14/16 Subjective:: Patient is overall feeling better. He does continue to have nausea. His pain is controlled. He denies fever, chills, headache, chest pain, shortness of breath. Physical Exam Vital Signs: Temp Pulse Resp BP Pulse Ox 97.9 F 79 12 122/75 96 08/14/16 07:09 08/14/16 07:09 08/14/16 07:09 08/14/16 07:09 08/14/16 07:09 Intake & Output 08/13/16 08/14/16 08/15/16 06:59 06:59 06:59 Intake Total 2860 3475 Output Total 2150 2000 Balance 710 1475 Weight 74.3 kg GENERAL: No acute distress HEENT: Conjunctiva clear, nonicteric, moist mucous membranes, no JVD, midline trachea RESPIRATORY: Clear to auscultation bilaterally, no wheezes, no rhonchi CARDIAC: Regular rate and rhythm, no murmurs/gallops/rubs ABDOMEN: Soft, nondistended, nontender, diminished bowel sounds, no rebound, no guarding. colostomy present with good stool output EXTREMETIES: No edema, cyanosis, clubbing NEUROLOGIC: Alert, oriented to person/place/time, CN's grossly intact, no focal deficits SKIN: No rash, wounds PSYCH: Normal mood, normal affect Results Laboratory Results: 08/14/16 06:00 08/14/16 06:00 08/14/16 08/14/16 06:00 06:00 WBC 15.6 H RBC 4.08 L Hgb 9.6 L Hct 30.9 L MCV 76 L MCH 23.5 L MCHC 31.0 L RDW 16.5 H Plt Count 616 H Seg Neutrophils % 86.9 H Lymphocytes % 5.3 L Monocytes % 6.8 Eosinophils % 0.3 Basophils % 0.7 Absolute Neutrophils 13.5 H Absolute Lymphocytes 0.8 Absolute Monocytes 1.1 Absolute Eosinophils 0.1 Absolute Basophils 0.1 Sodium 139.8 Potassium 3.5 L Chloride 102 Carbon Dioxide 23 Anion Gap 15 BUN 6 L Creatinine 1.03 Est GFR ( Amer) > 60 Est GFR (Non-Af Amer) > 60 Glucose 84 Calcium 8.2 L Impressions: Abdomen/Pelvis CT 08/11/16 00:00 IMPRESSION: Very limited scan due the lack of IV and oral contrast. Stable ascites in the abdomen and pelvis compared to 08/04/2016. No gross free intraperitoneal air. Head CT 08/12/16 00:00 IMPRESSION: NORMAL BRAIN CT WITHOUT AND WITH CONTRAST. Assessment & Plan - Diagnosis (1) Peritonitis (acute) generalized Is this a current diagnosis for this admission?: YesPlan: Continue IV Cipro and IV Flagyl. We will need to maintain patient on IV antibiotics until he is able to take good oral intake. (2) Colon cancer Qualifiers: Colon location: unspecified part of colon Qualified Code(s): C18.9 - Malignant neoplasm of colon, unspecified Is this a current diagnosis for this admission?: YesPlan: Patient is status post ileostomy. He is followed by Dr. Veronica Lewis of oncology in [facility] as an outpatient. I have personally discussed the case with Dr. Lewis 08/13/16. (3) Bradycardia Is this a current diagnosis for this admission?: Yes (4) Nausea & vomiting Qualifiers: Vomiting type: unspecified Vomiting Intractability: non-intractable Qualified Code(s): R11.2 - Nausea with vomiting, unspecified Is this a current diagnosis for this admission?: YesPlan: Head CT negative. Possibly secondary to relative opiate withdrawal as patient normally takes Dilaudid 8 mg every 4 hours as an outpatient. Continue IV fluids until taking good oral intake. Continue antiemetics. (5) Acute renal failure Qualifiers: Acute renal failure type: unspecified Qualified Code(s): N17.9 - Acute kidney failure, unspecified Is this a current diagnosis for this admission?: Yes (6) Full code status Is this a current diagnosis for this admission?: Yes - Time Time Spent with patient: 35 or more minutes
[2016-08-14] MEDS: LORAZEPAM INJ 2 MG/1 ML VIAL IV PRN ×2 (10:35→18:20)
[2016-08-14] MEDS: FAMOTIDINE INJ/PF 20 MG/2 ML SDV IV SCH ×2 (10:35→21:24)
[2016-08-14] MEDS: ENOXAPARIN SODIUM INJ 40 MG/0.4 ML DISP.SYRIN SUBCUT SCH (10:36)
[2016-08-14] MEDS: CIPROFLOXACIN 400 MG/D5W RTU 400 MG/200 ML RTUPB IV SCH ×2 (10:36→22:25)
[2016-08-14] MEDS: PROMETHAZINE HCL INJ 25 MG/1 ML VIAL IV PRN (13:11)
[2016-08-15] MEDS: LORAZEPAM INJ 2 MG/1 ML VIAL IV PRN ×2 (01:01→22:58)
[2016-08-15] MEDS: HYDROMORPHONE HCL INJ/PF 2 MG/ML AMPULE IV PRN ×5 (03:27→19:46)
[2016-08-15] MEDS: ONDANSETRON HCL INJ/PF 4 MG/2 ML SDV IV PRN ×3 (05:02→22:57)
[2016-08-15] MEDS: METRONIDAZOLE 500 MG/NS RTU 100 ML IV SCH ×5 (05:04→23:14)
[2016-08-15 05:39] LABS: HEMATOCRIT 29.9 % (37.9-51.0); HEMOGLOBIN 9.1 g/dL (13.5-17.0); HGB HCT DIFFERENCE -2.6; MEAN CORPUSCULAR HGB CONC 30.4 g/dL (32.0-36.0); MEAN CORPUSCULAR VOLUME 76 fl (80-97); RED BLOOD COUNT 3.96 10^6/uL (4.35-5.55); RED CELL DISTRIBUTION WIDTH 16.4 % (11.5-14.0); WHITE BLOOD COUNT 14.3 10^3/uL (4.0-10.5)
[2016-08-15] MEDS: PROMETHAZINE HCL INJ 25 MG/1 ML VIAL IV PRN (05:43)
[2016-08-15 05:54] LABS: ALANINE AMINOTRANSFERASE 25 U/L (21-72); ALBUMIN 2.6 g/dL (3.5-5.0); ALKALINE PHOSPHATASE 83 U/L (38-126); ANION GAP 14 (5-19); ASPARTATE AMINO TRANSFERASE 16 U/L (17-59); BILIRUBIN,DIRECT 0.5 mg/dL (0.0-0.4); BILIRUBIN,TOTAL 0.8 mg/dL (0.2-1.3); BLOOD UREA NITROGEN 6 mg/dL (7-20); CARBON DIOXIDE 25 mmol/L (22-30); CHLORIDE 100 mmol/L (98-107); CREATININE RESULT 1.04 mg/dL (0.52-1.25); GLUCOSE 83 mg/dL (75-110); POTASSIUM 3.4 mmol/L (3.6-5.0); SODIUM 138.7 mmol/L (137-145); TOTAL PROTEIN 6.3 g/dL (6.3-8.2)
[2016-08-15 06:17] LABS: BASOPHILS % (MANUAL) 0 % (0-2); EOSINOPHILS % (MANUAL) 0 % (0-6); LYMPHOCYTES % (MANUAL) 8 % (13-45); TOTAL CELLS COUNTED 100
[2016-08-15 06:20] LABS: ANISOCYTOSIS 1+; HYPOCHROMASIA 1+; MICROCYTOSIS 1+; TOXIC GRANULATION SLIGHT
[2016-08-15 06:21] LABS: OVALOCYTES SLIGHT; TARGET CELLS 1+
[2016-08-15] MEDS ORDERED: POTASSI CL 20 MEQ/50 ML RIDER 50 ML IV ONE (07:46)
[2016-08-15] MEDS: CIPROFLOXACIN 400 MG/D5W RTU 400 MG/200 ML RTUPB IV SCH ×2 (10:49→22:00)
[2016-08-15] MEDS: FAMOTIDINE INJ/PF 20 MG/2 ML SDV IV SCH ×2 (10:49→21:20)
[2016-08-15] MEDS: ENOXAPARIN SODIUM INJ 40 MG/0.4 ML DISP.SYRIN SUBCUT SCH (10:50)
--- NOTE | 2016-08-15 13:44 | PDOC PROGRESS REPORT ---
Subjective Progress Note for:: 08/15/16 Subjective:: Patient complains of pain not controlled by 1 mg IV Dilaudid. He is tolerating solid foods but has poor intake. He denies fever, chills, headache, chest pain, vomiting, shortness of breath. Physical Exam Vital Signs: Temp Pulse Resp BP Pulse Ox 99.6 F 79 15 119/77 96 08/15/16 12:31 08/15/16 12:31 08/15/16 12:31 08/15/16 12:31 08/15/16 12:31 Intake & Output 08/14/16 08/15/16 08/16/16 06:59 06:59 06:59 Intake Total 3475 3218 650 Output Total 1999 1000 625 Balance 1475 2218 25 Weight 74.3 kg GENERAL: No acute distress HEENT: Conjunctiva clear, nonicteric, moist mucous membranes, no JVD, midline trachea RESPIRATORY: Clear to auscultation bilaterally, no wheezes, no rhonchi CARDIAC: Regular rate and rhythm, no murmurs/gallops/rubs ABDOMEN: Soft, nondistended, nontender, diminished bowel sounds, no rebound, no guarding. colostomy present with good stool output EXTREMETIES: No edema, cyanosis, clubbing NEUROLOGIC: Alert, oriented to person/place/time, CN's grossly intact, no focal deficits SKIN: No rash, wounds PSYCH: Normal mood, normal affect Results Laboratory Results: 08/15/16 04:57 08/15/16 04:57 08/15/16 08/15/16 04:57 04:57 WBC 14.3 H RBC 3.96 L Hgb 9.1 L Hct 29.9 L MCV 76 L MCH 23.0 L MCHC 30.4 L RDW 16.4 H Plt Count 559 H Seg Neutrophils % Not Reportable Lymphocytes % Not Reportable Monocytes % Not Reportable Eosinophils % Not Reportable Basophils % Not Reportable Absolute Neutrophils Not Reportable Absolute Lymphocytes Not Reportable Absolute Monocytes Not Reportable Absolute Eosinophils Not Reportable Absolute Basophils Not Reportable Sodium 138.7 Potassium 3.4 L Chloride 100 Carbon Dioxide 25 Anion Gap 14 BUN 6 L Creatinine 1.04 Est GFR ( Amer) > 60 Est GFR (Non-Af Amer) > 60 Glucose 83 Calcium 8.0 L Total Bilirubin 0.8 AST 16 L ALT 25 Alkaline Phosphatase 83 Total Protein 6.3 Albumin 2.6 L Impressions: Abdomen/Pelvis CT 08/11/16 00:00 IMPRESSION: Very limited scan due the lack of IV and oral contrast. Stable ascites in the abdomen and pelvis compared to 08/04/2016. No gross free intraperitoneal air. Head CT 08/12/16 00:00 IMPRESSION: NORMAL BRAIN CT WITHOUT AND WITH CONTRAST. Assessment & Plan - Diagnosis (1) Peritonitis (acute) generalized Is this a current diagnosis for this admission?: YesPlan: Continue IV Cipro and IV Flagyl. We will need to maintain patient on IV antibiotics until he is able to take good oral intake. (2) Colon cancer Qualifiers: Colon location: unspecified part of colon Qualified Code(s): C18.9 - Malignant neoplasm of colon, unspecified Is this a current diagnosis for this admission?: YesPlan: Patient is status post ileostomy. He is followed by Dr. Veronica Lewis of oncology in [facility] as an outpatient. I have personally discussed the case with Dr. Lewis 08/13/16. (3) Bradycardia Is this a current diagnosis for this admission?: Yes (4) Nausea & vomiting Qualifiers: Vomiting type: unspecified Vomiting Intractability: non-intractable Qualified Code(s): R11.2 - Nausea with vomiting, unspecified Is this a current diagnosis for this admission?: YesPlan: Head CT negative. Possibly secondary to relative opiate withdrawal as patient normally takes Dilaudid 8 mg every 4 hours as an outpatient. Continue IV fluids until taking good oral intake. Continue antiemetics. (5) Acute renal failure Qualifiers: Acute renal failure type: unspecified Qualified Code(s): N17.9 - Acute kidney failure, unspecified Is this a current diagnosis for this admission?: Yes (6) Full code status Is this a current diagnosis for this admission?: Yes (7) Chronic pain Is this a current diagnosis for this admission?: YesPlan: Chronic opiate dependence. Patient's oncologist states that he normally takes Dilaudid 8 mg p.o. every 4 hours as an outpatient. His pain is poorly controlled at this time so I will increase Dilaudid to 2 mg IV every 3 hours as needed. - Time Time Spent with patient: 35 or more minutes
[2016-08-16] MEDS: HYDROMORPHONE HCL INJ/PF 2 MG/ML AMPULE IV PRN ×6 (00:54→21:24)
[2016-08-16 04:26] LABS: ABSOLUTE BASOPHILS # (AUTO) 0.1 10^3/uL (0.0-0.2); ABSOLUTE LYMPHOCYTES (AUTO) 0.8 10^3/uL (0.5-4.7); ABSOLUTE MONOCYTES (AUTO) 1.3 10^3/uL (0.1-1.4); ABSOLUTE NEUT (AUTO) 12.8 10^3/uL (1.7-8.2); BASOPHILS % (AUTO) 0.7 % (0-2); EOSINOPHILS % (AUTO) 0.3 % (0-6); HEMATOCRIT 29.2 % (37.9-51.0); HEMOGLOBIN 9.1 g/dL (13.5-17.0); HGB HCT DIFFERENCE -1.9; LYMPHOCYTES % (AUTO) 5.1 % (13-45); MEAN CORPUSCULAR HEMOGLOBIN 23.3 pg (27.0-33.4); MEAN CORPUSCULAR HGB CONC 31.2 g/dL (32.0-36.0); MEAN CORPUSCULAR VOLUME 75 fl (80-97); MONOCYTES % (AUTO) 8.8 % (3-13); RED BLOOD COUNT 3.91 10^6/uL (4.35-5.55); RED CELL DISTRIBUTION WIDTH 16.4 % (11.5-14.0); SEGMENTED NEUTROPHILS % (AUTO) 85.1 % (42-78)
[2016-08-16 04:40] LABS: BLOOD UREA NITROGEN 6 mg/dL (7-20); CALCIUM 8.3 mg/dL (8.4-10.2); CREATININE RESULT 1.12 mg/dL (0.52-1.25); GLUCOSE 88 mg/dL (75-110); POTASSIUM 3.8 mmol/L (3.6-5.0)
[2016-08-16 04:41] LABS: ALANINE AMINOTRANSFERASE 22 U/L (21-72); ALBUMIN 2.8 g/dL (3.5-5.0); ALKALINE PHOSPHATASE 89 U/L (38-126); ANION GAP 13 (5-19); ASPARTATE AMINO TRANSFERASE 16 U/L (17-59); BILIRUBIN,DIRECT 0.5 mg/dL (0.0-0.4); BILIRUBIN,TOTAL 0.7 mg/dL (0.2-1.3); CARBON DIOXIDE 26 mmol/L (22-30); CHLORIDE 99 mmol/L (98-107); MAGNESIUM 1.3 mg/dL (1.6-2.3); TOTAL PROTEIN 6.6 g/dL (6.3-8.2)
[2016-08-16] MEDS: METRONIDAZOLE 500 MG/NS RTU 100 ML IV SCH ×3 (05:04→17:08)
[2016-08-16] MEDS ORDERED: MAGNESIUM SULFATE/D5W 1 GM/100 ML RTUPB IV ONE (08:00)
--- NOTE | 2016-08-16 10:13 | PDOC PROGRESS REPORT ---
Subjective Progress Note for:: 08/16/16 Subjective:: According to patient's mother who is present at the bedside patient has been very sedated most of the day. Patient states that because he is up all night. He has had a few episodes of vomiting. Chronic abdominal pain is controlled. Physical Exam Vital Signs: Temp Pulse Resp BP Pulse Ox 100.0 F 92 16 119/85 96 08/16/16 07:35 08/16/16 07:35 08/16/16 07:35 08/16/16 07:35 08/16/16 07:35 Intake & Output 08/15/16 08/16/16 08/17/16 06:59 06:59 06:59 Intake Total 3218 3002 Output Total 1000 1925 Balance 2218 1077 GENERAL: No acute distress HEENT: Conjunctiva clear, nonicteric, moist mucous membranes, no JVD, midline trachea RESPIRATORY: Clear to auscultation bilaterally, no wheezes, no rhonchi CARDIAC: Regular rate and rhythm, no murmurs/gallops/rubs ABDOMEN: Soft, nondistended, nontender, diminished bowel sounds, no rebound, no guarding. colostomy present with good stool output EXTREMETIES: No edema, cyanosis, clubbing NEUROLOGIC: Alert, oriented to person/place/time, CN's grossly intact, no focal deficits SKIN: No rash, wounds PSYCH: Normal mood, normal affect Results Laboratory Results: 08/16/16 03:54 08/16/16 03:54 08/16/16 08/16/16 03:54 03:54 WBC 15.0 H RBC 3.91 L Hgb 9.1 L Hct 29.2 L MCV 75 L MCH 23.3 L MCHC 31.2 L RDW 16.4 H Plt Count 551 H Seg Neutrophils % 85.1 H Lymphocytes % 5.1 L Monocytes % 8.8 Eosinophils % 0.3 Basophils % 0.7 Absolute Neutrophils 12.8 H Absolute Lymphocytes 0.8 Absolute Monocytes 1.3 Absolute Eosinophils 0.0 Absolute Basophils 0.1 Sodium 138.0 Potassium 3.8 Chloride 99 Carbon Dioxide 26 Anion Gap 13 BUN 6 L Creatinine 1.12 Est GFR ( Amer) > 60 Est GFR (Non-Af Amer) > 60 Glucose 88 Calcium 8.3 L Magnesium 1.3 L Total Bilirubin 0.7 AST 16 L ALT 22 Alkaline Phosphatase 89 Total Protein 6.6 Albumin 2.8 L Impressions: Abdomen/Pelvis CT 08/11/16 00:00 IMPRESSION: Very limited scan due the lack of IV and oral contrast. Stable ascites in the abdomen and pelvis compared to 08/04/2016. No gross free intraperitoneal air. Head CT 08/12/16 00:00 IMPRESSION: NORMAL BRAIN CT WITHOUT AND WITH CONTRAST. Assessment & Plan - Diagnosis (1) Leukocytosis Qualifiers: Leukocytosis type: unspecified Qualified Code(s): D72.829 - Elevated white blood cell count, unspecified Is this a current diagnosis for this admission?: YesPlan: The patient is afebrile. Repeat CT abdomen/pelvis. Check chest x-ray. Patient has had some bowel movement per rectum over the past couple days and is on broad-spectrum antibiotics I will check C. difficile of his bowel movement ( not ostomy output) as he can still develop C. difficile proctitis. (2) Peritonitis (acute) generalized Is this a current diagnosis for this admission?: YesPlan: Continue IV Cipro and IV Flagyl. We will need to maintain patient on IV antibiotics until he is able to take good oral intake. Repeat CT abdomen/pelvis a persistent leukocytosis. (3) Colon cancer Qualifiers: Colon location: unspecified part of colon Qualified Code(s): C18.9 - Malignant neoplasm of colon, unspecified Is this a current diagnosis for this admission?: YesPlan: Patient is status post ileostomy. He is followed by Dr. Veronica Lewis of oncology in [facility] as an outpatient. I have personally discussed the case with Dr. Lewis 08/13/16. (4) Bradycardia Is this a current diagnosis for this admission?: Yes (5) Nausea & vomiting Qualifiers: Vomiting type: unspecified Vomiting Intractability: non-intractable Qualified Code(s): R11.2 - Nausea with vomiting, unspecified Is this a current diagnosis for this admission?: Yes (6) Acute renal failure Qualifiers: Acute renal failure type: unspecified Qualified Code(s): N17.9 - Acute kidney failure, unspecified Is this a current diagnosis for this admission?: Yes (7) Chronic pain Is this a current diagnosis for this admission?: Yes (8) Full code status Is this a current diagnosis for this admission?: Yes - Time Time Spent with patient: 35 or more minutes
--- NOTE | 2016-08-16 10:48 | RADIOLOGY REPORT (SQ) ---
EXAM DESCRIPTION: CHEST SINGLE VIEW COMPLETED DATE/TIME: 08/16/2016 10:26 am REASON FOR STUDY: fever COMPARISON: 06/12/2016. NUMBER OF VIEWS: One view. TECHNIQUE: Single frontal radiographic view of the chest acquired. LIMITATIONS: None. FINDINGS: LUNGS AND PLEURA: Generally low lung volumes. Minimal left basilar airspace disease or strong bsegmental atelectasis. Right basilar scarring, as before. Upper lung hanson are clear. MEDIASTINUM AND HILAR STRUCTURES: No masses. No contour abnormality. HEART AND VASCULAR STRUCTURES: Normal size. No evidence for failure. BONES: No acute findings. HARDWARE: Right port, as before. OTHER: No other significant finding. IMPRESSION: Mild left basilar opacity, suspect subsegmental atelectasis although developing pneumoni a is certainly possible. TECHNICAL DOCUMENTATION: JOB ID: [id number] [email or web address]- All Rights Reserved
[2016-08-16] MEDS: FAMOTIDINE INJ/PF 20 MG/2 ML SDV IV SCH ×2 (10:59→21:24)
[2016-08-16] MEDS: ENOXAPARIN SODIUM INJ 40 MG/0.4 ML DISP.SYRIN SUBCUT SCH (10:59)
[2016-08-16] MEDS: CIPROFLOXACIN 400 MG/D5W RTU 400 MG/200 ML RTUPB IV SCH (11:00)
[2016-08-16] MEDS: ONDANSETRON HCL INJ/PF 4 MG/2 ML SDV IV PRN ×2 (12:20→20:07)
[2016-08-16] MEDS: POTASSI CL 20 MEQ/D5-1/2NS 1L 1,000 ML IV PRN (12:49)
--- NOTE | 2016-08-16 16:44 | RADIOLOGY REPORT (SQ) ---
EXAM DESCRIPTION: CT ABD/PELVIS WITH IV ONLY COMPLETED DATE/TIME: 08/16/2016 4:23 pm REASON FOR STUDY: elevated WBC, abd pain, colon CA COMPARISON: 08/04/2016 TECHNIQUE: CT scan of the abdomen and pelvis performed using helical scanning technique with dynamic intravenous contrast injection. No oral contrast. Images reviewed with lung, soft tissue, and bone windows. Reconstructed coronal and sagittal MPR images reviewed. Delayed images for evaluation of the urinary system also acquired. All images stored on PACS. All CT scanners at this facility use dose modulation, iterative reconstruction, and/or weight based d osing when appropriate to reduce radiation dose to as low as reasonably achievable (ALARA). [facility]: Dose Right [facility]: CareDose [facility]: Dose Right [facility]: Teradose 4D [facility]: Yuyuto CONTRAST TYPE AND DOSE: contrast/concentration: Isovue 370.00 mg/ml; Total Contrast Delivered: 80.0 ml; Total Saline Delivered: 68.1 ml RENAL FUNCTION: BUN 6; CREATININE 1.12 RADIATION DOSE: 14.83. LIMITATIONS: None. FINDINGS: LOWER CHEST: No significant findings. Bibasilar atelectasis versus consolidation. LIVER: Normal size. No masses. No dilated ducts. SPLEEN: Surgically absent. PANCREAS: No masses. No significant calcifications. No adjacent inflammation or peripancreatic fluid collections. Pancreatic duct not dilated. GALLBLADDER: Surgically absent. ADRENAL GLANDS: No significant masses or asymmetry. RIGHT KIDNEY AND URETER: No solid masses. No significant calcifications. Mild hydronephrosis and hydroureter. LEFT KIDNEY AND URETER: No solid masses. No significant calcifications. Mild hydronephrosis and h ydroureter. AORTA AND VESSELS: No aneurysm. No dissection. Renal arteries, SMA, celiac without stenosis. RETROPERITONEUM: No retroperitoneal adenopathy, hemorrhage or masses. BOWEL AND PERITONEAL CAVITY: Surgical changes are again demonstrated; the precise nature is poorly ch aracterized. A right lower quadrant ostomy is present. The stomach and duodenum appear dilated, as do several loops of more distal small bowel. The absence of enteric contrast limits examination. APPENDIX: Surgically absent. PELVIS: No mass or free fluid. Normal bladder. ABDOMINAL WALL: Ostomy as above. No masses. No hernias. BONES: No significant or acute findings. OTHER: No other significant finding. IMPRESSION: Surgical changes of the bowel noting multiple dilated loops; the absence of enteric cont rast limits the ability to discern between loculated fluid and enteric fluid. Interval development o f mild bilateral hydronephrosis and hydroureter, favored to be on the basis of mechanical obstruction due to adjacent bowel distension. TECHNICAL DOCUMENTATION: JOB ID: [id number] Quality ID # [id number]: Final reports with documentation of one or more dose reduction techniques (e.g., Au tomated exposure control, adjustment of the mA and/or kV according to patient size, use of iterative reconstruction technique) 2010 [employer]- All Rights Reserved
--- NOTE | 2016-08-16 17:36 | Progress Note ---
Provider Note Provider Note: Bibasilar PNA- High probability of gram negative due to vomiting. Change Abx to Ertapenem, Levaquin, Vanc. Check BC's.
[2016-08-16] MEDS ORDERED: VANCOMYCIN HCL 0 MG in DEXTROSE 5%-WATER 250 ML IV NR (17:45)
[2016-08-16] MEDS ORDERED: ERTAPENEM SODIUM INJ 1 GM VIAL IV PRN (17:56)
[2016-08-16] MEDS ORDERED: VANCOMYCIN HCL INJ 1000 MG VIAL IV PRN (17:57)
[2016-08-16] MEDS ORDERED: ERTAPENEM SODIUM 1 GM in NORMAL SALINE 50 ML IV SCH (18:00)
[2016-08-16] MEDS: LEVOFLOXACIN 750 MG/D5W RTU 750 MG/150 ML RTUPB IV SCH (18:37)
[2016-08-16] MEDS ORDERED: VANCOMYCIN HCL 1,500 MG in DEXTROSE 5%-WATER 250 ML IV ONE (20:00)
[2016-08-16] MEDS ORDERED: ERTAPENEM SODIUM INJ 1 GM VIAL ONE (20:33)
[2016-08-16] MEDS ORDERED: VANCOMYCIN HCL INJ 1000 MG VIAL ONE (20:33)
[2016-08-17] MEDS: HYDROMORPHONE HCL INJ/PF 2 MG/ML AMPULE IV PRN ×6 (01:53→22:09)
[2016-08-17 05:12] LABS: HEMATOCRIT 28.9 % (37.9-51.0); HGB HCT DIFFERENCE -1.9; MEAN CORPUSCULAR HEMOGLOBIN 23.4 pg (27.0-33.4); MEAN CORPUSCULAR VOLUME 75 fl (80-97); RED BLOOD COUNT 3.83 10^6/uL (4.35-5.55); WHITE BLOOD COUNT 14.9 10^3/uL (4.0-10.5)
[2016-08-17 05:30] LABS: ALANINE AMINOTRANSFERASE 26 U/L (21-72); ALBUMIN 2.7 g/dL (3.5-5.0); ALKALINE PHOSPHATASE 80 U/L (38-126); ANION GAP 11 (5-19); ASPARTATE AMINO TRANSFERASE 16 U/L (17-59); BILIRUBIN,DIRECT 0.5 mg/dL (0.0-0.4); BILIRUBIN,TOTAL 0.7 mg/dL (0.2-1.3); BLOOD UREA NITROGEN 5 mg/dL (7-20); CALCIUM 8.2 mg/dL (8.4-10.2); CARBON DIOXIDE 28 mmol/L (22-30); CHLORIDE 97 mmol/L (98-107); CREATININE RESULT 0.97 mg/dL (0.52-1.25); GLUCOSE 85 mg/dL (75-110); MAGNESIUM 1.3 mg/dL (1.6-2.3); POTASSIUM 3.6 mmol/L (3.6-5.0); SODIUM 135.9 mmol/L (137-145); TOTAL PROTEIN 6.7 g/dL (6.3-8.2)
[2016-08-17 05:49] LABS: BASOPHILS % (MANUAL) 0 % (0-2); EOSINOPHILS % (MANUAL) 1 % (0-6); LYMPHOCYTES % (MANUAL) 4 % (13-45); TOTAL CELLS COUNTED 100
[2016-08-17 05:51] LABS: ACANTHOCYTES 1+; ANISOCYTOSIS 1+; HYPOCHROMASIA 2+; MICROCYTOSIS 1+; POIKILOCYTOSIS 2+
[2016-08-17 05:52] LABS: ROULEAUX SLIGHT; TARGET CELLS 2+
[2016-08-17] MEDS ORDERED: MAGNESIUM SULFATE/D5W 1 GM/100 ML RTUPB IV ONE (07:45)
[2016-08-17] MEDS: ONDANSETRON HCL INJ/PF 4 MG/2 ML SDV IV PRN ×2 (07:56→21:07)
[2016-08-17] MEDS ORDERED: DEXTROSE 40% GEL 15 GM TUBE PO PRN ×2 (08:50)
[2016-08-17] MEDS ORDERED: GLUCAGON,HUMAN RECOMB 1 MG INJ SUBCUT PRN (08:50)
[2016-08-17] MEDS ORDERED: DEXTROSE 50%-WATER 25 GM/50 ML DISP.SYRIN IV PRN ×2 (08:50)
[2016-08-17] MEDS ORDERED: PHARMACY COMMUNICATION ORDER MC NR (09:15)
--- NOTE | 2016-08-17 09:21 | PDOC PROGRESS REPORT ---
Subjective Progress Note for:: 08/17/16 Subjective:: Patient is having continued episodes of vomiting and hiccups. He is still having good ostomy output. He denies fever, chills, headache, shortness of breath. He does have continued chronic abdominal pain from his cancer. Physical Exam Vital Signs: Temp Pulse Resp BP Pulse Ox 98.9 F 85 12 121/85 95 08/17/16 04:27 08/17/16 04:27 08/17/16 04:27 08/17/16 04:27 08/17/16 04:27 Intake & Output 08/16/16 08/17/16 08/18/16 06:59 06:59 06:59 Intake Total 3002 3997 Output Total 1925 3400 Balance 1077 597 GENERAL: No acute distress HEENT: Conjunctiva clear, nonicteric, moist mucous membranes, no JVD, midline trachea RESPIRATORY: Clear to auscultation bilaterally, no wheezes, no rhonchi CARDIAC: Regular rate and rhythm, no murmurs/gallops/rubs ABDOMEN: Soft, nondistended, nontender, diminished bowel sounds, no rebound, no guarding. colostomy present with good stool output EXTREMETIES: No edema, cyanosis, clubbing NEUROLOGIC: Alert, oriented to person/place/time, CN's grossly intact, no focal deficits SKIN: No rash, wounds PSYCH: Normal mood, normal affect Results Laboratory Results: 08/17/16 04:32 08/17/16 04:32 08/17/16 08/17/16 04:32 04:32 WBC 14.9 H RBC 3.83 L Hgb 9.0 L Hct 28.9 L MCV 75 L MCH 23.4 L MCHC 31.0 L RDW 16.0 H Plt Count 605 H Seg Neutrophils % Not Reportable Lymphocytes % Not Reportable Monocytes % Not Reportable Eosinophils % Not Reportable Basophils % Not Reportable Absolute Neutrophils Not Reportable Absolute Lymphocytes Not Reportable Absolute Monocytes Not Reportable Absolute Eosinophils Not Reportable Absolute Basophils Not Reportable Sodium 135.9 L Potassium 3.6 Chloride 97 L Carbon Dioxide 28 Anion Gap 11 BUN 5 L Creatinine 0.97 Est GFR ( Amer) > 60 Est GFR (Non-Af Amer) > 60 Glucose 85 Calcium 8.2 L Magnesium 1.3 L Total Bilirubin 0.7 AST 16 L ALT 26 Alkaline Phosphatase 80 Total Protein 6.7 Albumin 2.7 L Impressions: Head CT 08/12/16 00:00 IMPRESSION: NORMAL BRAIN CT WITHOUT AND WITH CONTRAST. Abdomen/Pelvis CT 08/16/16 00:00 IMPRESSION: Surgical changes of the bowel noting multiple dilated loops; the absence of enteric contrast limits the ability to discern between loculated fluid and enteric fluid. Interval development of mild bilateral hydronephrosis and hydroureter, favored to be on the basis of mechanical obstruction due to adjacent bowel distension. Chest X-Ray 08/16/16 09:55 IMPRESSION: Mild left basilar opacity, suspect subsegmental atelectasis although developing pneumonia is certainly possible. Assessment & Plan - Diagnosis (1) Pneumonia Is this a current diagnosis for this admission?: YesPlan: Likely bacterial. High probability of gram-negative organism given her persistent vomiting. Continue IV ertapenem, Levaquin, vancomycin day #2. (2) Ileus Is this a current diagnosis for this admission?: YesPlan: N.p.o. NG tube to wall suction. IV fluids. Address causes of ileus which include infection and narcotic use. Advised patient to mobilize and try and decrease narcotic use if possible. Given the fact that he has good ostomy output I doubt there is a bowel obstruction. That being said patient does have intra-abdominal malignancy and prior bowel surgery so would like to consult surgery for opinion. If surgery does not feel that there is a bowel obstruction I may consider addition of Reglan. (3) Leukocytosis Qualifiers: Leukocytosis type: unspecified Qualified Code(s): D72.829 - Elevated white blood cell count, unspecified Is this a current diagnosis for this admission?: YesPlan: The patient is afebrile. Repeat CT abdomen/pelvis showed bibasilar pneumonia and ileus. Patient has had some bowel movement per rectum over the past couple days and is on broad-spectrum antibiotics I will check C. difficile of his bowel movement (not ostomy output) as he can still develop C. difficile proctitis. (4) Peritonitis (acute) generalized Is this a current diagnosis for this admission?: YesPlan: Antibiotics as mentioned above. (5) Colon cancer Qualifiers: Colon location: unspecified part of colon Qualified Code(s): C18.9 - Malignant neoplasm of colon, unspecified Is this a current diagnosis for this admission?: YesPlan: Patient is status post ileostomy. He is followed by Dr. Veronica Lewis of oncology in [facility] as an outpatient. I have personally discussed the case with Dr. Lewis 08/13/16. (6) Bradycardia Is this a current diagnosis for this admission?: Yes (7) Acute renal failure Qualifiers: Acute renal failure type: unspecified Qualified Code(s): N17.9 - Acute kidney failure, unspecified Is this a current diagnosis for this admission?: Yes (8) Chronic pain Is this a current diagnosis for this admission?: YesPlan: Chronic opiate dependence. Patient's oncologist states that he normally takes Dilaudid 8 mg p.o. every 4 hours as an outpatient. I have had a discussion with patient regarding the need to minimize narcotic use in light of ileus. (9) Ileostomy in place Is this a current diagnosis for this admission?: Yes (10) Full code status Is this a current diagnosis for this admission?: Yes - Time Time Spent with patient: 35 or more minutes
[2016-08-17] MEDS: FAMOTIDINE INJ/PF 20 MG/2 ML SDV IV SCH ×2 (09:39→21:07)
[2016-08-17] MEDS: ENOXAPARIN SODIUM INJ 40 MG/0.4 ML DISP.SYRIN SUBCUT SCH (09:39)
[2016-08-17] MEDS: VANCOMYCIN HCL 1,000 MG in DEXTROSE 5%-WATER 250 ML IV SCH ×3 (12:39→23:31)
--- NOTE | 2016-08-17 14:08 | CONSULTATION REPORT E ---
Consultation Report NAME: JERE CRUZ : 1975 AGE: 41Y DATE: 308 A TO: ERICKA OLIVO M.D. FROM: NORBERTO OJEDA M.D. Requesting Physician REASON FOR CONSULTATION: Patient with evidence of obstruction on a CAT scan of the abdomen. HISTORY OF PRESENT ILLNESS: This is a 41-year-old male with known history of colon cancer with mets post colectomy. He has not been vomiting and had a CAT scan of the abdomen yesterday which showed dilated stomach and duodenum, as well as dilated small bowel loops. This morning, has been vomiting with hiccups. His abdomen is distended but denies any tenderness or pains. The CT scan of the abdomen was reviewed and definitely has evidence for partial obstruction since the ileostomy, appears to be continuing to function. An NG tube was then inserted. I inserted it after failed attempt to put in the left nasal area and finally, able to put it into the right nasal area up to about 60 cm. There was gush of about 200 mL of light greenish fluid. IMPRESSION: 1. Partial bowel obstruction. 2. Placement of NG tube done. 3. Continue with low intermittent suction. 4. He may need parenteral nutrition through the port because he has been unable to tolerate his diet well, and he needed nutrition. Will follow the patient with you. DICTATING PHYSICIAN: ERICKA OLIVO M.D. [id number] PHY#: [id number] ID: [id number] JOB#: [id number] ACCT: [id number] cc:ERICKA OLIVO M.D. >
[2016-08-17] MEDS: LEVOFLOXACIN 750 MG/D5W RTU 750 MG/150 ML RTUPB IV SCH (17:17)
[2016-08-17] MEDS: ERTAPENEM SODIUM 1 GM in NORMAL SALINE 50 ML IV SCH (21:12)
[2016-08-18] MEDS: HYDROMORPHONE HCL INJ/PF 2 MG/ML AMPULE IV PRN ×6 (02:05→22:50)
[2016-08-18] MEDS: VANCOMYCIN HCL 1,000 MG in DEXTROSE 5%-WATER 250 ML IV SCH ×3 (05:55→22:47)
[2016-08-18 07:16] LABS: ABSOLUTE EOSINOPHILS # (AUTO) 0.1 10^3/uL (0.0-0.6); ABSOLUTE LYMPHOCYTES (AUTO) 0.7 10^3/uL (0.5-4.7); ABSOLUTE MONOCYTES (AUTO) 1.8 10^3/uL (0.1-1.4); BASOPHILS % (AUTO) 0.3 % (0-2); EOSINOPHILS % (AUTO) 0.5 % (0-6); HEMATOCRIT 28.5 % (37.9-51.0); HEMOGLOBIN 8.8 g/dL (13.5-17.0); HGB HCT DIFFERENCE -2.1; LYMPHOCYTES % (AUTO) 4.7 % (13-45); MEAN CORPUSCULAR HEMOGLOBIN 23.4 pg (27.0-33.4); MEAN CORPUSCULAR HGB CONC 30.9 g/dL (32.0-36.0); MEAN CORPUSCULAR VOLUME 76 fl (80-97); MONOCYTES % (AUTO) 12.1 % (3-13); RED BLOOD COUNT 3.77 10^6/uL (4.35-5.55); RED CELL DISTRIBUTION WIDTH 15.9 % (11.5-14.0); SEGMENTED NEUTROPHILS % (AUTO) 82.4 % (42-78); WHITE BLOOD COUNT 14.6 10^3/uL (4.0-10.5)
[2016-08-18 07:42] LABS: ANION GAP 13 (5-19); BLOOD UREA NITROGEN 4 mg/dL (7-20); CARBON DIOXIDE 28 mmol/L (22-30); CHLORIDE 98 mmol/L (98-107); CREATININE RESULT 0.96 mg/dL (0.52-1.25); GLUCOSE 84 mg/dL (75-110); MAGNESIUM 1.6 mg/dL (1.6-2.3); POTASSIUM 3.7 mmol/L (3.6-5.0); SODIUM 138.8 mmol/L (137-145)
[2016-08-18] MEDS: FAMOTIDINE INJ/PF 20 MG/2 ML SDV IV SCH ×2 (10:12→21:10)
[2016-08-18] MEDS: ENOXAPARIN SODIUM INJ 40 MG/0.4 ML DISP.SYRIN SUBCUT SCH (10:12)
[2016-08-18] MEDS: POTASSI CL 20 MEQ/D5-1/2NS 1L 1,000 ML IV PRN (14:15)
--- NOTE | 2016-08-18 14:22 | RADIOLOGY REPORT (SQ) ---
EXAM DESCRIPTION: KUB/ABDOMEN (SINGLE VIEW) COMPLETED DATE/TIME: 08/18/2016 1:40 pm REASON FOR STUDY: blockage COMPARISON: None. NUMBER OF VIEWS: 12/05/2015 TECHNIQUE: Supine radiographic image of the abdomen acquired. LIMITATIONS: None. FINDINGS: BOWEL GAS PATTERN: Mildly dilated loops of small bowel in the right upper quadrant. CALCIFICATIONS: No suspicious calcifications. SOFT TISSUES: No gross mass or suggestion of organomegaly. HARDWARE: None. BONES: No bone lesions or fracture. OTHER: No other significant finding. IMPRESSION: Ileus or partial small bowel obstruction.
--- NOTE | 2016-08-18 17:22 | PDOC PROGRESS REPORT ---
Subjective Progress Note for:: 08/18/16 Subjective:: Patient is very upset about not being able to eat and would like to know why. I again reinforced to him that he has an ileus and requires bowel rest and told him yesterday. He is still having good ostomy output. He denies fever, chills , headache, shortness of breath. He does have continued chronic abdominal pain from his cancer. Physical Exam Vital Signs: Temp Pulse Resp BP Pulse Ox 98.4 F 77 18 127/83 H 97 08/18/16 11:34 08/18/16 11:34 08/18/16 11:34 08/18/16 11:34 08/18/16 11:34 Intake & Output 08/17/16 08/18/16 08/19/16 06:59 06:59 06:59 Intake Total 3997 3839 Output Total 3400 6375 1000 Balance 597 -8219 -1000 GENERAL: No acute distress HEENT: Conjunctiva clear, nonicteric, moist mucous membranes, no JVD, midline trachea RESPIRATORY: Clear to auscultation bilaterally, no wheezes, no rhonchi CARDIAC: Regular rate and rhythm, no murmurs/gallops/rubs ABDOMEN: Soft, distended, nontender, diminished bowel sounds, no rebound, no guarding. colostomy present with good stool output EXTREMETIES: No edema, cyanosis, clubbing NEUROLOGIC: Alert, oriented to person/place/time, CN's grossly intact, no focal deficits SKIN: No rash, wounds PSYCH: Normal mood, normal affect Results Laboratory Results: 08/18/16 06:10 08/18/16 06:10 08/18/16 08/18/16 06:10 06:10 WBC 14.6 H RBC 3.77 L Hgb 8.8 L Hct 28.5 L MCV 76 L MCH 23.4 L MCHC 30.9 L RDW 15.9 H Plt Count 683 H Seg Neutrophils % 82.4 H Lymphocytes % 4.7 L Monocytes % 12.1 Eosinophils % 0.5 Basophils % 0.3 Absolute Neutrophils 12.0 H Absolute Lymphocytes 0.7 Absolute Monocytes 1.8 H Absolute Eosinophils 0.1 Absolute Basophils 0.0 Sodium 138.8 Potassium 3.7 Chloride 98 Carbon Dioxide 28 Anion Gap 13 BUN 4 L Creatinine 0.96 Est GFR ( Amer) > 60 Est GFR (Non-Af Amer) > 60 Glucose 84 Calcium 8.0 L Magnesium 1.6 Impressions: Head CT 08/12/16 00:00 IMPRESSION: NORMAL BRAIN CT WITHOUT AND WITH CONTRAST. Abdomen/Pelvis CT 08/16/16 00:00 IMPRESSION: Surgical changes of the bowel noting multiple dilated loops; the absence of enteric contrast limits the ability to discern between loculated fluid and enteric fluid. Interval development of mild bilateral hydronephrosis and hydroureter, favored to be on the basis of mechanical obstruction due to adjacent bowel distension. Chest X-Ray 08/16/16 09:55 IMPRESSION: Mild left basilar opacity, suspect subsegmental atelectasis although developing pneumonia is certainly possible. KUB X-Ray 08/18/16 12:29 IMPRESSION: Ileus or partial small bowel obstruction. Assessment & Plan - Diagnosis (1) Pneumonia Is this a current diagnosis for this admission?: YesPlan: Likely bacterial. High probability of gram-negative organism given her persistent vomiting. Continue IV ertapenem, Levaquin, vancomycin day #3. (2) Ileus Is this a current diagnosis for this admission?: YesPlan: N.p.o. NG tube to wall suction. IV fluids. Address causes of ileus which include infection, decreased mobility metastatic colon cancer and narcotic use. Advised patient to mobilize and try and decrease narcotic use if possible. Given the fact that he has good ostomy output I doubt there is a bowel obstruction. That being said patient does have intra-abdominal malignancy and prior bowel surgery. Case discussed with Dr. Miller of surgery and Dr. Perry of surgery and they do not feel the patient has bowel obstruction given good ostomy output. We could consider Reglan if condition does not improve in the next day or 2. (3) Leukocytosis Qualifiers: Leukocytosis type: unspecified Qualified Code(s): D72.829 - Elevated white blood cell count, unspecified Is this a current diagnosis for this admission?: YesPlan: The patient is afebrile. Repeat CT abdomen/pelvis showed bibasilar pneumonia and ileus. (4) Peritonitis (acute) generalized Is this a current diagnosis for this admission?: Yes (5) Colon cancer Qualifiers: Colon location: unspecified part of colon Qualified Code(s): C18.9 - Malignant neoplasm of colon, unspecified Is this a current diagnosis for this admission?: YesPlan: Patient is status post ileostomy. He is followed by Dr. Veronica Lewis of oncology in [facility] as an outpatient. I have personally discussed the case with Dr. Lewis 08/13/16. (6) Bradycardia Is this a current diagnosis for this admission?: Yes (7) Acute renal failure Qualifiers: Acute renal failure type: unspecified Qualified Code(s): N17.9 - Acute kidney failure, unspecified Is this a current diagnosis for this admission?: Yes (8) Chronic pain Is this a current diagnosis for this admission?: Yes (9) Ileostomy in place Is this a current diagnosis for this admission?: Yes (10) Full code status Is this a current diagnosis for this admission?: Yes - Time Time Spent with patient: 35 or more minutes
[2016-08-18] MEDS: LEVOFLOXACIN 750 MG/D5W RTU 750 MG/150 ML RTUPB IV SCH (18:05)
[2016-08-18] MEDS: ERTAPENEM SODIUM 1 GM in NORMAL SALINE 50 ML IV SCH (21:11)
[2016-08-19] MEDS: HYDROMORPHONE HCL INJ/PF 2 MG/ML AMPULE IV PRN ×6 (02:35→21:50)
[2016-08-19] MEDS: VANCOMYCIN HCL 1,000 MG in DEXTROSE 5%-WATER 250 ML IV SCH (05:24)
[2016-08-19 05:57] LABS: ABSOLUTE BASOPHILS # (AUTO) 0.1 10^3/uL (0.0-0.2); ABSOLUTE LYMPHOCYTES (AUTO) 0.9 10^3/uL (0.5-4.7); ABSOLUTE MONOCYTES (AUTO) 2.2 10^3/uL (0.1-1.4); ABSOLUTE NEUT (AUTO) 12.9 10^3/uL (1.7-8.2); BASOPHILS % (AUTO) 0.9 % (0-2); EOSINOPHILS % (AUTO) 0.2 % (0-6); HEMATOCRIT 29.2 % (37.9-51.0); HEMOGLOBIN 8.9 g/dL (13.5-17.0); HGB HCT DIFFERENCE -2.5; LYMPHOCYTES % (AUTO) 5.7 % (13-45); MEAN CORPUSCULAR HEMOGLOBIN 23.1 pg (27.0-33.4); MEAN CORPUSCULAR HGB CONC 30.7 g/dL (32.0-36.0); MEAN CORPUSCULAR VOLUME 76 fl (80-97); MONOCYTES % (AUTO) 13.5 % (3-13); RED BLOOD COUNT 3.87 10^6/uL (4.35-5.55); SEGMENTED NEUTROPHILS % (AUTO) 79.7 % (42-78); WHITE BLOOD COUNT 16.2 10^3/uL (4.0-10.5)
[2016-08-19 06:11] LABS: ANION GAP 12 (5-19); BLOOD UREA NITROGEN 3 mg/dL (7-20); CALCIUM 8.4 mg/dL (8.4-10.2); CARBON DIOXIDE 30 mmol/L (22-30); CHLORIDE 100 mmol/L (98-107); GLUCOSE 83 mg/dL (75-110); POTASSIUM 3.4 mmol/L (3.6-5.0); SODIUM 141.7 mmol/L (137-145)
--- NOTE | 2016-08-19 09:15 | RADIOLOGY REPORT (SQ) ---
EXAM DESCRIPTION: KUB/ABDOMEN (SINGLE VIEW) COMPLETED DATE/TIME: 08/19/2016 8:59 am REASON FOR STUDY: sbo partial COMPARISON: 08/18/2016. NUMBER OF VIEWS: One view. TECHNIQUE: Supine radiographic image of the abdomen acquired. LIMITATIONS: None. FINDINGS: BOWEL GAS PATTERN: No gas filled dilated loops appreciated today. CALCIFICATIONS: No suspicious calcifications. SOFT TISSUES: No gross mass or suggestion of organomegaly. HARDWARE: Nasogastric tube in place, tip to the distal stomach. BONES: No acute fracture. No worrisome bone lesions. OTHER: No other significant finding. IMPRESSION: Bowel gas pattern looks improved with nasogastric tube in place. TECHNICAL DOCUMENTATION: JOB ID: [id number] [employer]- All Rights Reserved
[2016-08-19] MEDS ORDERED: PHENOL/SODIUM PHENOLATE 100 SPRAY/177 ML BOTTLE PO PRN (09:35)
[2016-08-19] MEDS: ENOXAPARIN SODIUM INJ 40 MG/0.4 ML DISP.SYRIN SUBCUT SCH (10:02)
[2016-08-19] MEDS: FAMOTIDINE INJ/PF 20 MG/2 ML SDV IV SCH ×2 (10:03→21:50)
[2016-08-19] MEDS: POTASSI CL 20 MEQ/50 ML RIDER 50 ML IV SCH ×3 (10:55→14:15)
[2016-08-19] MEDS: METOCLOPRAMIDE HCL INJ/PF 10 MG/2 ML SDV IV SCH ×3 (12:09→23:27)
[2016-08-19] MEDS: MAGNESIUM SULFATE/D5W 100 ML IV SCH ×3 (12:09→14:15)
[2016-08-19] MEDS ORDERED: NORMAL SALINE 1000 ML 1,000 ML IV ONE (12:58)
--- NOTE | 2016-08-19 15:04 | PDOC PROGRESS REPORT ---
Subjective Progress Note for:: 08/19/16 Subjective:: Reports that he is feeling improved and that he would like to eat. He does report that he gets dizzy on standing. Nursing reports that they have seen him eating and drinking despite being n.p.o. Patient denies chest pain, shortness of breath, nausea, vomiting, fever, chills , chest pain, lower extremity swelling. Patient does report air in his ostomy bag. Physical Exam Vital Signs: Temp Pulse Resp BP Pulse Ox 99.2 F 83 16 124/87 H 96 08/19/16 07:36 08/19/16 07:36 08/19/16 07:36 08/19/16 07:36 08/19/16 07:36 Intake & Output 08/18/16 08/19/16 08/20/16 06:59 06:59 06:59 Intake Total 3839 2550 Output Total 6351 0661 Balance -7526 -7000 Weight 77.4 kg Exam: GENERAL: No acute distress, thin, chronically ill-appearing HEENT: Conjunctiva clear, nonicteric, moist mucous membranes, no JVD, midline trachea RESPIRATORY: Clear to auscultation bilaterally, no wheezes, no rhonchi CARDIAC: Regular rate and rhythm, no murmurs/gallops/rubs ABDOMEN: Soft, distended, mildly tender to palpation periumbilical, diminished bowel sounds, no rebound, no guarding, RLQ ileostomy present with air in bag with small amount of stool EXTREMETIES: No edema, cyanosis, clubbing NEUROLOGIC: Alert, oriented to person/place/time, CN's grossly intact, no focal deficits SKIN: No rash, wounds PSYCH: Normal mood, normal affect Results Laboratory Results: 08/19/16 05:10 08/19/16 05:10 08/19/16 08/19/16 05:10 05:10 WBC 16.2 H RBC 3.87 L Hgb 8.9 L Hct 29.2 L MCV 76 L MCH 23.1 L MCHC 30.7 L RDW 16.0 H Plt Count 701 H Seg Neutrophils % 79.7 H Lymphocytes % 5.7 L Monocytes % 13.5 H Eosinophils % 0.2 Basophils % 0.9 Absolute Neutrophils 12.9 H Absolute Lymphocytes 0.9 Absolute Monocytes 2.2 H Absolute Eosinophils 0.0 Absolute Basophils 0.1 Sodium 141.7 Potassium 3.4 L Chloride 100 Carbon Dioxide 30 Anion Gap 12 BUN 3 L Creatinine 1.10 Est GFR ( Amer) > 60 Est GFR (Non-Af Amer) > 60 Glucose 83 Calcium 8.4 Impressions: Head CT 08/12/16 00:00 IMPRESSION: NORMAL BRAIN CT WITHOUT AND WITH CONTRAST. Abdomen/Pelvis CT 08/16/16 00:00 IMPRESSION: Surgical changes of the bowel noting multiple dilated loops; the absence of enteric contrast limits the ability to discern between loculated fluid and enteric fluid. Interval development of mild bilateral hydronephrosis and hydroureter, favored to be on the basis of mechanical obstruction due to adjacent bowel distension. Chest X-Ray 08/16/16 09:55 IMPRESSION: Mild left basilar opacity, suspect subsegmental atelectasis although developing pneumonia is certainly possible. KUB X-Ray 08/18/16 12:29 IMPRESSION: Ileus or partial small bowel obstruction. Assessment & Plan - Diagnosis (1) Ileus Is this a current diagnosis for this admission?: YesPlan: Continue NG to suction and encourage ambulation. Replete electrolytes. Treat symptomatically. If patient is able to tolerate ambulation, will consider clears and continued clamp NG. Use of Reglan. (2) Chronic pain Qualifiers: Chronic pain type: due to neoplasm Qualified Code(s): G89.3 - Neoplasm related pain (acute) (chronic) Is this a current diagnosis for this admission?: YesPlan: Decrease dose of Dilaudid (3) Colon cancer Qualifiers: Colon location: unspecified part of colon Qualified Code(s): C18.9 - Malignant neoplasm of colon, unspecified Is this a current diagnosis for this admission?: YesPlan: The patient's oncologist for maintenance chemotherapy and for decisions related to this diagnosis. Overall though, patient has stage IV colonic cancer and has had this for the past 11 years, I suspect that patient's outcome overall will be unfavorable. (4) High output ileostomy Is this a current diagnosis for this admission?: Yes (5) Pneumonia Qualifiers: Pneumonia type: due to unspecified organism Laterality: left Lung location: lower lobe of lung Qualified Code(s): J18.1 - Lobar pneumonia, unspecified organism Is this a current diagnosis for this admission?: YesPlan: Suspect that this is likely atelectasis and not true pneumonia. Patient reports no cough, denies chest pain, and has been no decrease in his oxygen saturation. Will obtain an AP and lateral and give patient an incentive spirometry. (6) SIRS (systemic inflammatory response syndrome) Is this a current diagnosis for this admission?: YesPlan: All cultures are currently negative Patient met SIRS criteria on admission likely secondary to dehydration and partial SBO. (7) Acute renal failure Qualifiers: Acute renal failure type: unspecified Qualified Code(s): N17.9 - Acute kidney failure, unspecified Is this a current diagnosis for this admission?: YesPlan: Improved (8) Full code status Is this a current diagnosis for this admission?: YesPlan: Surrogate decision makers (9) Hypomagnesemia Is this a current diagnosis for this admission?: YesPlan: Replete and recheck - Time Time Spent with patient: 25-34 minutes Medications reviewed and adjusted accordingly: Yes Anticipated discharge: Home Within: within 48 hours, within 72 hours
--- NOTE | 2016-08-19 15:51 | RADIOLOGY REPORT (SQ) ---
EXAM DESCRIPTION: CHEST PA/LAT COMPLETED DATE/TIME: 08/19/2016 3:28 pm REASON FOR STUDY: ?pna, suspect atelectasis COMPARISON: 08/16/2016. TECHNIQUE: Frontal and lateral radiographic views of the chest acquired. NUMBER OF VIEWS: Two view. LIMITATIONS: None. FINDINGS: LUNGS AND PLEURA: Low lung volumes with bibasilar linear areas of subsegmental atelectasis . Similar appearance compared to prior. MEDIASTINUM AND HILAR STRUCTURES: No masses or contour abnormalities. HEART AND VASCULAR STRUCTURES: Heart normal size. No evidence for failure. BONES: No acute findings. HARDWARE: Right subclavian port. Nasogastric tube down, tip appropriately within the stomach. OTHER: No other significant finding. IMPRESSION: Low lung volumes with basilar subsegmental atelectasis bilaterally. TECHNICAL DOCUMENTATION: JOB ID: [id number] [employer]- All Rights Reserved
[2016-08-19] MEDS: LEVOFLOXACIN 750 MG/D5W RTU 750 MG/150 ML RTUPB IV SCH (18:17)
[2016-08-19] MEDS: POTASSI CL 20 MEQ/D5-1/2NS 1L 1,000 ML IV PRN (22:26)
[2016-08-20] MEDS: HYDROMORPHONE HCL INJ/PF 2 MG/ML AMPULE IV PRN ×6 (02:08→22:03)
[2016-08-20] MEDS: METOCLOPRAMIDE HCL INJ/PF 10 MG/2 ML SDV IV SCH ×4 (06:10→23:29)
[2016-08-20] MEDS: POTASSI CL 20 MEQ/D5-1/2NS 1L 1,000 ML IV PRN ×2 (07:21→16:05)
[2016-08-20] MEDS: FAMOTIDINE INJ/PF 20 MG/2 ML SDV IV SCH ×2 (10:12→22:02)
[2016-08-20] MEDS: ENOXAPARIN SODIUM INJ 40 MG/0.4 ML DISP.SYRIN SUBCUT SCH (10:13)
[2016-08-20 10:36] LABS: HEMATOCRIT 26.5 % (37.9-51.0); HEMOGLOBIN 8.3 g/dL (13.5-17.0); HGB HCT DIFFERENCE -1.6; MEAN CORPUSCULAR HEMOGLOBIN 23.2 pg (27.0-33.4); MEAN CORPUSCULAR HGB CONC 31.2 g/dL (32.0-36.0); MEAN CORPUSCULAR VOLUME 74 fl (80-97); RED BLOOD COUNT 3.56 10^6/uL (4.35-5.55); RED CELL DISTRIBUTION WIDTH 16.1 % (11.5-14.0); WHITE BLOOD COUNT 16.6 10^3/uL (4.0-10.5)
[2016-08-20 10:52] LABS: ANION GAP 11 (5-19); BLOOD UREA NITROGEN 2 mg/dL (7-20); CALCIUM 8.3 mg/dL (8.4-10.2); CARBON DIOXIDE 28 mmol/L (22-30); CHLORIDE 100 mmol/L (98-107); CREATININE RESULT 1.15 mg/dL (0.52-1.25); GLUCOSE 96 mg/dL (75-110); MAGNESIUM 1.6 mg/dL (1.6-2.3); POTASSIUM 3.7 mmol/L (3.6-5.0)
[2016-08-20 11:06] LABS: BASOPHILS % (MANUAL) 0 % (0-2); EOSINOPHILS % (MANUAL) 0 % (0-6); LYMPHOCYTES % (MANUAL) 4 % (13-45); TOTAL CELLS COUNTED 100
[2016-08-20 11:07] LABS: MICROCYTOSIS 1+; TOXIC GRANULATION 1+; TOXIC VACUOLATION PRESENT
[2016-08-20 11:08] LABS: ANISOCYTOSIS 1+
[2016-08-20 11:10] LABS: HYPOCHROMASIA SLIGHT; OVALOCYTES SLIGHT; PLATELET CLUMPS PRESENT; POIKILOCYTOSIS SLIGHT; POLYCHROMASIA SLIGHT; TARGET CELLS 3+; TEAR DROP CELLS SLIGHT
[2016-08-20 11:11] LABS: SPHEROCYTES SLIGHT
[2016-08-20 11:13] LABS: ROULEAUX SLIGHT
--- NOTE | 2016-08-20 12:40 | RADIOLOGY REPORT (SQ) ---
EXAM DESCRIPTION: KUB/ABDOMEN (SINGLE VIEW) COMPLETED DATE/TIME: 08/20/2016 11:03 am REASON FOR STUDY: ileus COMPARISON: Abdominal films 08/19/2016, 08/18/2016, CT abdomen pelvis 08/11/2016, 08/16/2016 NUMBER OF VIEWS: One view. TECHNIQUE: Supine radiographic image of the abdomen acquired. LIMITATIONS: None. FINDINGS: BOWEL GAS PATTERN: There is a nasogastric tube with the tip in the stomach fundus. Small amount of air in mildly distended gastric antrum. A distended air-filled 2nd and 3rd portion d uodenum. Few air bubbles in the left upper quadrant possibly in small bowel loops. Right lower quadrant ileos bigg. This is an abnormal bowel gas pattern, question proximal small bowel obstruction. This is similar co mpared to previous studies. Findings discussed with Dr. Connelly CALCIFICATIONS: No suspicious calcifications. SOFT TISSUES: No gross mass or suggestion of organomegaly. HARDWARE: Nasogastric tube tip and side port in the stomach. Enterotomy bowel milagros are seen in th e mid epigastrium the right lower quadrant BONES: No acute fracture. No worrisome bone lesions. OTHER: No other significant finding. IMPRESSION: Findings worrisome for partial small bowel obstruction similar compared to previous exam s TECHNICAL DOCUMENTATION: JOB ID: [id number]- All Rights Reserved
--- NOTE | 2016-08-20 14:20 | PDOC PROGRESS REPORT ---
Subjective Progress Note for:: 08/20/16 Subjective:: Patient seen earlier today on morning rounds. Patient was not feeling well after clear liquids yesterday and NG was hooked back up to suction. patient has had over 600 mL of NG aspirate. Patient admits to nausea and abdominal pain. Patient denies vomiting, fever, chills, chest pain, shortness of breath, cough. Tmax in 24 hours 99.8 degrees Fahrenheit Physical Exam Vital Signs: Temp Pulse Resp BP Pulse Ox 99.8 F 77 16 126/81 H 98 08/20/16 11:10 08/20/16 11:10 08/20/16 11:10 08/20/16 11:10 08/20/16 11:10 Intake & Output 08/19/16 08/20/16 08/21/16 06:59 06:59 06:59 Intake Total 2550 6436 540 Output Total 9550 1800 Balance -7000 4636 540 Weight 77.4 kg Exam: GENERAL: No acute distress, thin, chronically ill-appearing HEENT: Conjunctiva clear, nonicteric, moist mucous membranes, no JVD, midline trachea RESPIRATORY: Clear to auscultation bilaterally, no wheezes, no rhonchi CARDIAC: Regular rate and rhythm, no murmurs/gallops/rubs ABDOMEN: soft, distended, mildly tender to palpation periumbilical, absent bowel sounds, no rebound, no guarding, RLQ ileostomy present with air in bag with small amount of yellow fluid EXTREMETIES: No cyanosis, clubbing; trace edema NEUROLOGIC: Alert, oriented to person/place/time, CN's grossly intact, no focal deficits SKIN: No rash, wounds PSYCH: Normal mood, normal affect Results Laboratory Results: 08/20/16 10:11 08/20/16 10:11 08/20/16 08/20/16 10:11 10:11 WBC 16.6 H RBC 3.56 L Hgb 8.3 L Hct 26.5 L MCV 74 L MCH 23.2 L MCHC 31.2 L RDW 16.1 H Plt Count 761 H Seg Neutrophils % Not Reportable Lymphocytes % Not Reportable Monocytes % Not Reportable Eosinophils % Not Reportable Basophils % Not Reportable Absolute Neutrophils Not Reportable Absolute Lymphocytes Not Reportable Absolute Monocytes Not Reportable Absolute Eosinophils Not Reportable Absolute Basophils Not Reportable Sodium 139.0 Potassium 3.7 Chloride 100 Carbon Dioxide 28 Anion Gap 11 BUN 2 L Creatinine 1.15 Est GFR ( Amer) > 60 Est GFR (Non-Af Amer) > 60 Glucose 96 Calcium 8.3 L Magnesium 1.6 Impressions: Head CT 08/12/16 00:00 IMPRESSION: NORMAL BRAIN CT WITHOUT AND WITH CONTRAST. Abdomen/Pelvis CT 08/16/16 00:00 IMPRESSION: Surgical changes of the bowel noting multiple dilated loops; the absence of enteric contrast limits the ability to discern between loculated fluid and enteric fluid. Interval development of mild bilateral hydronephrosis and hydroureter, favored to be on the basis of mechanical obstruction due to adjacent bowel distension. Chest X-Ray 08/19/16 00:00 IMPRESSION: Low lung volumes with basilar subsegmental atelectasis bilaterally. KUB X-Ray 08/20/16 00:00 IMPRESSION: Findings worrisome for partial small bowel obstruction similar compared to previous exams Assessment & Plan - Diagnosis (1) Small bowel obstruction Is this a current diagnosis for this admission?: YesPlan: Partial small bowel obstruction. N.p.o. NG to low intermittent suction. Continue to monitor patient electrolytes. Potassium and Magnesium currently normal (2) Ileus Is this a current diagnosis for this admission?: Yes (3) Chronic pain Qualifiers: Chronic pain type: due to neoplasm Qualified Code(s): G89.3 - Neoplasm related pain (acute) (chronic) Is this a current diagnosis for this admission?: YesPlan: C continue current dose of Dilaudid (4) High output ileostomy Is this a current diagnosis for this admission?: Yes (5) Pneumonia Qualifiers: Pneumonia type: due to unspecified organism Laterality: left Lung location: lower lobe of lung Qualified Code(s): J18.1 - Lobar pneumonia, unspecified organism Is this a current diagnosis for this admission?: YesPlan: Suspect that this is likely atelectasis and not true pneumonia. Patient reports no cough, denies chest pain, and has been no decrease in his oxygen saturation. Chest x-ray done on 08/19/2016 revealed mild basilar atelectasis without infiltrate. This has been ruled out and will remove from list. (6) Acute renal failure Qualifiers: Acute renal failure type: unspecified Qualified Code(s): N17.9 - Acute kidney failure, unspecified Is this a current diagnosis for this admission?: YesPlan: Improved (7) Hypomagnesemia Is this a current diagnosis for this admission?: YesPlan: improved (8) Peritonitis (acute) generalized Is this a current diagnosis for this admission?: YesPlan: Currently on Cipro and Flagyl and have the escalated him from his triple antibiotic therapy. At this time, I feel the patient requires surgical intervention. (9) Ileostomy in place Is this a current diagnosis for this admission?: Yes (10) Maintenance chemotherapy Is this a current diagnosis for this admission?: Yes (11) Colon cancer metastasized to liver Is this a current diagnosis for this admission?: Yes (12) Full code status Is this a current diagnosis for this admission?: Yes (13) SIRS (systemic inflammatory response syndrome) Is this a current diagnosis for this admission?: YesPlan: All cultures are currently negative Patient met SIRS criteria on admission likely secondary to dehydration and partial SBO. - Time Time Spent with patient: 35 or more minutes Medications reviewed and adjusted accordingly: Yes [facility] when bed available
--- NOTE | 2016-08-20 16:03 | PDOC DISCHARGE SUMMARY ---
General - Admit/Disc Date/PCP Admission Date/Primary Care Provider: 08/04/16 23:52 Discharge Date: 08/20/16 - Discharge Diagnosis (1) Small bowel obstruction Is this a current diagnosis for this admission?: Yes (2) Ileus Is this a current diagnosis for this admission?: Yes (3) Chronic pain Is this a current diagnosis for this admission?: Yes (4) High output ileostomy Is this a current diagnosis for this admission?: Yes (5) Pneumonia Is this a current diagnosis for this admission?: Yes (6) Acute renal failure Is this a current diagnosis for this admission?: Yes (7) Hypomagnesemia Is this a current diagnosis for this admission?: Yes (8) Peritonitis (acute) generalized Is this a current diagnosis for this admission?: Yes (9) Ileostomy in place Is this a current diagnosis for this admission?: Yes (10) Maintenance chemotherapy Is this a current diagnosis for this admission?: Yes (11) Colon cancer metastasized to liver Is this a current diagnosis for this admission?: Yes (12) SIRS (systemic inflammatory response syndrome) Is this a current diagnosis for this admission?: Yes (13) Full code status Is this a current diagnosis for this admission?: Yes - Additional Information Resuscitation Status: Full Code Home Medications: Alprazolam [Alprazolam] 0.5 mg PO BIDP PRN 08/05/16 Hydromorphone HCl [Dilaudid] 8 mg PO Q4H 08/05/16 Loperamide HCl [Imodium A-D] 2 mg PO ASDIR PRN 08/05/16 Magnesium Oxide [Mag-Ox 400 mg Tablet] 800 mg PO TID 08/05/16 History of Present Illness History of Present Illness: JERE CRUZ is a 41 year old male with a fairly complicated past medical history, reportedly diagnosed with colon cancer at the age of 23, and through multiple abdominal operations for cancer eventually metastatic to his liver, now has a permanent ileostomy, having undergone complete colectomy. Chemotherapy every 2 weeks. Last round 3 days ago. Presents to the emergency room complaining of generalized cramping abdominal pain, primarily in the left lower quadrant of his abdomen, without radiation. For the past 2-3 days. Movement makes it worse. He has had nausea and vomiting , along with fever and shaking chills. No change in his ileostomy output. No medication changes. No unusual oral intake. No antibiotic use for the past 4 months. No history of C. difficile infection. Hospitalized for 16 days approximately 4 months ago for somewhat similar symptoms in [place]. I have asked patient to attempt to find the hospital's name so we can request old records. Patient has been discussed with emergency room physician who evaluated the patient. Hospitalized on our service May 29- of this year with final diagnoses including high output ileostomy, acute renal failure, urinary tract infection. History and physical and discharge summary have been reviewed. Hospital Course Hospital Course: Was admitted for generalized peritonitis which is felt to be secondary to partial small bowel obstruction. At the time of admission, patient was offered surgery by several surgeons, but patient declined despite knowing that this may worsen his condition. Patient's peritonitis has been medically managed on and off with a multitude of antibiotics including vancomycin, ertapenem, Zosyn, cefepime, Cipro, Flagyl, and Levaquin. Recently, patient was thought to have pneumonia, but this was ruled out based on patient's symptomatology and lack of radiographic evidence. Currently patient has been de-escalated to Cipro and Flagyl. Patient has not been improving and is better admonitions to remain n.p.o. he still continues to eat. Patient does have an NG and this has been placed to suction. Patient is now developing a dilated duodenum consistent with a worsening of his underlying obstruction. At this time patient is amenable to transfer for surgical intervention at [facility]. Patient has been accepted by Dr. Adams. Physical Exam Vital Signs: Temp Pulse Resp BP Pulse Ox 99.8 F 75 16 126/81 H 98 08/20/16 11:10 08/20/16 14:00 08/20/16 11:10 08/20/16 11:10 08/20/16 11:10 Intake & Output 08/19/16 08/20/16 08/21/16 06:59 06:59 06:59 Intake Total 2550 6436 540 Output Total 9550 1800 Balance -7000 4636 540 Weight 77.4 kg Exam: GENERAL: No acute distress, thin, chronically ill-appearing HEENT: Conjunctiva clear, nonicteric, moist mucous membranes, no JVD, midline trachea RESPIRATORY: Clear to auscultation bilaterally, no wheezes, no rhonchi CARDIAC: Regular rate and rhythm, no murmurs/gallops/rubs ABDOMEN: soft, distended, mildly tender to palpation periumbilical, absent bowel sounds, no rebound, no guarding, RLQ ileostomy present with air in bag with small amount of yellow fluid EXTREMETIES: No cyanosis, clubbing; trace edema NEUROLOGIC: Alert, oriented to person/place/time, CN's grossly intact, no focal deficits SKIN: No rash, wounds PSYCH: Normal mood, normal affect Results Laboratory Results: 08/20/16 10:11 08/20/16 10:11 08/20/16 08/20/16 10:11 10:11 WBC 16.6 H RBC 3.56 L Hgb 8.3 L Hct 26.5 L MCV 74 L MCH 23.2 L MCHC 31.2 L RDW 16.1 H Plt Count 761 H Seg Neutrophils % Not Reportable Lymphocytes % Not Reportable Monocytes % Not Reportable Eosinophils % Not Reportable Basophils % Not Reportable Absolute Neutrophils Not Reportable Absolute Lymphocytes Not Reportable Absolute Monocytes Not Reportable Absolute Eosinophils Not Reportable Absolute Basophils Not Reportable Sodium 139.0 Potassium 3.7 Chloride 100 Carbon Dioxide 28 Anion Gap 11 BUN 2 L Creatinine 1.15 Est GFR ( Amer) > 60 Est GFR (Non-Af Amer) > 60 Glucose 96 Calcium 8.3 L Magnesium 1.6 Impressions: Head CT 08/12/16 00:00 IMPRESSION: NORMAL BRAIN CT WITHOUT AND WITH CONTRAST. Abdomen/Pelvis CT 08/16/16 00:00 IMPRESSION: Surgical changes of the bowel noting multiple dilated loops; the absence of enteric contrast limits the ability to discern between loculated fluid and enteric fluid. Interval development of mild bilateral hydronephrosis and hydroureter, favored to be on the basis of mechanical obstruction due to adjacent bowel distension. Chest X-Ray 08/19/16 00:00 IMPRESSION: Low lung volumes with basilar subsegmental atelectasis bilaterally. KUB X-Ray 08/20/16 00:00 IMPRESSION: Findings worrisome for partial small bowel obstruction similar compared to previous exams Qualifiers [facility]INT BEING DISCHARGED WITH ANY OF THE FOLLOWING DIAGNOSIS?: No Plan Time Spent: Greater than 30 Minutes
[2016-08-20] MEDS: METRONIDAZOLE 500 MG/NS RTU 100 ML IV SCH ×2 (17:54→23:29)
[2016-08-20 19:53] LABS: APPEARANCE,URINE TURBID; BILIRUBIN,URINE NEGATIVE (NEGATIVE); GLUCOSE, URINE NEGATIVE (NEGATIVE); KETONES,URINE NEGATIVE (NEGATIVE); LEUKOCYTE ESTERASE,URINE LARGE (NEGATIVE); NITRITE,URINE NEGATIVE (NEGATIVE); PROTEIN,URINE 100 mg/dL (NEGATIVE); URINE SPECIFIC GRAVITY 1.006; UROBILINOGEN,URINE NEGATIVE mg/dL (<2.0)
[2016-08-20] MEDS: CIPROFLOXACIN 400 MG/D5W RTU 200 ML IV SCH (22:02)
[2016-08-20] MEDS: ONDANSETRON HCL INJ/PF 4 MG/2 ML SDV IV PRN (23:29)
[2016-08-21] MEDS: HYDROMORPHONE HCL INJ/PF 2 MG/ML AMPULE IV PRN ×6 (01:58→22:05)
[2016-08-21] MEDS: POTASSI CL 20 MEQ/D5-1/2NS 1L 1,000 ML IV PRN ×2 (03:17→14:10)
[2016-08-21 05:46] LABS: ABSOLUTE BASOPHILS # (AUTO) 0.2 10^3/uL (0.0-0.2); ABSOLUTE LYMPHOCYTES (AUTO) 0.8 10^3/uL (0.5-4.7); ABSOLUTE NEUT (AUTO) 12.6 10^3/uL (1.7-8.2); BASOPHILS % (AUTO) 1.1 % (0-2); EOSINOPHILS % (AUTO) 0.2 % (0-6); HEMATOCRIT 27.5 % (37.9-51.0); HEMOGLOBIN 8.5 g/dL (13.5-17.0); LYMPHOCYTES % (AUTO) 5.2 % (13-45); MEAN CORPUSCULAR HEMOGLOBIN 23.1 pg (27.0-33.4); MEAN CORPUSCULAR HGB CONC 31.1 g/dL (32.0-36.0); MEAN CORPUSCULAR VOLUME 74 fl (80-97); MONOCYTES % (AUTO) 12.7 % (3-13); RED BLOOD COUNT 3.69 10^6/uL (4.35-5.55); RED CELL DISTRIBUTION WIDTH 15.8 % (11.5-14.0); SEGMENTED NEUTROPHILS % (AUTO) 80.8 % (42-78); WHITE BLOOD COUNT 15.7 10^3/uL (4.0-10.5)
[2016-08-21] MEDS: METOCLOPRAMIDE HCL INJ/PF 10 MG/2 ML SDV IV SCH ×3 (06:05→18:11)
[2016-08-21 06:09] LABS: ANION GAP 10 (5-19); BLOOD UREA NITROGEN 3 mg/dL (7-20); CALCIUM 8.3 mg/dL (8.4-10.2); CARBON DIOXIDE 28 mmol/L (22-30); CHLORIDE 102 mmol/L (98-107); CREATININE RESULT 1.32 mg/dL (0.52-1.25); GLUCOSE 98 mg/dL (75-110); MAGNESIUM 1.4 mg/dL (1.6-2.3); SODIUM 140.1 mmol/L (137-145)
[2016-08-21] MEDS: METRONIDAZOLE 500 MG/NS RTU 100 ML IV SCH ×3 (06:09→19:30)
[2016-08-21] MEDS ORDERED: NORMAL SALINE 1000 ML 1,000 ML IV ONE (07:25)
--- NOTE | 2016-08-21 08:56 | RADIOLOGY REPORT (SQ) ---
EXAM DESCRIPTION: KUB/ABDOMEN (SINGLE VIEW) COMPLETED DATE/TIME: 08/21/2016 8:17 am REASON FOR STUDY: partial sbo COMPARISON: CT abdomen pelvis 08/04/2016, 08/11/2016, 08/16/2016 Abdominal films 08/18/2016, 08/19/2016, 08/20/2016 NUMBER OF VIEWS: One view. TECHNIQUE: Supine radiographic image of the abdomen acquired. LIMITATIONS: None. FINDINGS: BOWEL GAS PATTERN: Stomach and proximal small bowel are partially decompressed. Mild gase ous distension of the gastric antrum. Small bowel loops seen on prior studies are not apparent today . Right-sided ileostomy unchanged CALCIFICATIONS: No suspicious calcifications. SOFT TISSUES: No gross mass or suggestion of organomegaly. HARDWARE: None in the abdomen. BONES: No acute fracture. No worrisome bone lesions. OTHER: No other significant finding. IMPRESSION: Slight decompression of proximal small bowel loops compared to previous studies Nasogastric tube tip and side port in the stomach. TECHNICAL DOCUMENTATION: JOB ID: [id number] [employer]- All Rights Reserved
[2016-08-21] MEDS: MAGNESIUM SULFATE/D5W 1 GM/100 ML RTUPB IV SCH ×2 (09:07→11:00)
[2016-08-21] MEDS: ENOXAPARIN SODIUM INJ 40 MG/0.4 ML DISP.SYRIN SUBCUT SCH (10:14)
[2016-08-21] MEDS: CIPROFLOXACIN 400 MG/D5W RTU 200 ML IV SCH ×2 (10:59→21:04)
[2016-08-21] MEDS: FAMOTIDINE INJ/PF 20 MG/2 ML SDV IV SCH ×2 (11:07→21:04)
--- NOTE | 2016-08-21 13:58 | PDOC PROGRESS REPORT ---
Subjective Progress Note for:: 08/21/16 Subjective:: Patient seen earlier today on morning rounds. A small amount of yellowish formed stool in his ileostomy today. Patient also has similar stool now coming out of his NG. Patient admits to nausea and abdominal pain. Patient denies vomiting, fever, chills, chest pain, shortness of breath, cough. Tmax in 24 hours 99.9 degrees Fahrenheit Physical Exam Vital Signs: Temp Pulse Resp BP Pulse Ox 98.4 F 87 18 131/85 H 95 08/21/16 04:08 08/21/16 04:08 08/21/16 04:08 08/21/16 04:08 08/21/16 04:08 Intake & Output 08/20/16 08/21/16 08/22/16 06:59 06:59 06:59 Intake Total 6436 3590 Output Total 1800 1350 Balance 4636 2240 Weight 74.3 kg Exam: GENERAL: No acute distress, thin, chronically ill-appearing HEENT: Conjunctiva clear, nonicteric, moist mucous membranes, no JVD, midline trachea RESPIRATORY: Clear to auscultation bilaterally, no wheezes, no rhonchi CARDIAC: Regular rate and rhythm, no murmurs/gallops/rubs ABDOMEN:firm, distended, mildly tender to palpation periumbilical, absent bowel sounds, no rebound, no guarding, RLQ ileostomy present with air in bag with small amount of yellow fluid EXTREMETIES: No cyanosis, clubbing; trace edema NEUROLOGIC: Alert, oriented to person/place/time, CN's grossly intact, no focal deficits SKIN: No rash, wounds PSYCH: Normal mood, normal affect Results Laboratory Results: 08/21/16 05:28 08/21/16 05:28 08/20/16 08/20/16 08/20/16 10:11 10:11 17:20 WBC 16.6 H RBC 3.56 L Hgb 8.3 L Hct 26.5 L MCV 74 L MCH 23.2 L MCHC 31.2 L RDW 16.1 H Plt Count 761 H Seg Neutrophils % Not Reportable Lymphocytes % Not Reportable Monocytes % Not Reportable Eosinophils % Not Reportable Basophils % Not Reportable Absolute Neutrophils Not Reportable Absolute Lymphocytes Not Reportable Absolute Monocytes Not Reportable Absolute Eosinophils Not Reportable Absolute Basophils Not Reportable Sodium 139.0 Potassium 3.7 Chloride 100 Carbon Dioxide 28 Anion Gap 11 BUN 2 L Creatinine 1.15 Est GFR ( Amer) > 60 Est GFR (Non-Af Amer) > 60 Glucose 96 Calcium 8.3 L Phosphorus Magnesium 1.6 Urine Color YELLOW Urine Appearance TURBID Urine pH 7.0 Ur Specific [place] 1.006 Urine Protein 100 H Urine Glucose (UA) NEGATIVE Urine Ketones NEGATIVE Urine Blood SMALL H Urine Nitrite NEGATIVE Ur Leukocyte Esterase LARGE H Urine WBC (Auto) >182 Urine RBC (Auto) 10 08/21/16 08/21/16 05:28 05:28 WBC 15.7 H RBC 3.69 L Hgb 8.5 L Hct 27.5 L MCV 74 L MCH 23.1 L MCHC 31.1 L RDW 15.8 H Plt Count 662 H Seg Neutrophils % 80.8 H Lymphocytes % 5.2 L Monocytes % 12.7 Eosinophils % 0.2 Basophils % 1.1 Absolute Neutrophils 12.6 H Absolute Lymphocytes 0.8 Absolute Monocytes 2.0 H Absolute Eosinophils 0.0 Absolute Basophils 0.2 Sodium 140.1 Potassium 4.0 Chloride 102 Carbon Dioxide 28 Anion Gap 10 BUN 3 L Creatinine 1.32 H Est GFR ( Amer) > 60 Est GFR (Non-Af Amer) 59 L Glucose 98 Calcium 8.3 L Phosphorus 4.0 Magnesium 1.4 L Urine Color Urine Appearance Urine pH Ur Specific [place] Urine Protein Urine Glucose (UA) Urine Ketones Urine Blood Urine Nitrite Ur Leukocyte Esterase Urine WBC (Auto) Urine RBC (Auto) Impressions: Head CT 08/12/16 00:00 IMPRESSION: NORMAL BRAIN CT WITHOUT AND WITH CONTRAST. Abdomen/Pelvis CT 08/16/16 00:00 IMPRESSION: Surgical changes of the bowel noting multiple dilated loops; the absence of enteric contrast limits the ability to discern between loculated fluid and enteric fluid. Interval development of mild bilateral hydronephrosis and hydroureter, favored to be on the basis of mechanical obstruction due to adjacent bowel distension. Chest X-Ray 08/19/16 00:00 IMPRESSION: Low lung volumes with basilar subsegmental atelectasis bilaterally. KUB X-Ray 08/20/16 00:00 IMPRESSION: Findings worrisome for partial small bowel obstruction similar compared to previous exams Assessment & Plan - Diagnosis (1) Small bowel obstruction Is this a current diagnosis for this admission?: YesPlan: Partial small bowel obstruction. Appears to be worsening and now has a jimmie stool in his NG. Patient has been accepted to [facility] and is currently pending a bed in transfer. N.p.o. NG to low intermittent suction. Continue to monitor patient electrolytes. Potassium currently normal Replete Magnesium. (2) Ileus Is this a current diagnosis for this admission?: Yes (3) Chronic pain Qualifiers: Chronic pain type: due to neoplasm Qualified Code(s): G89.3 - Neoplasm related pain (acute) (chronic) Is this a current diagnosis for this admission?: YesPlan: C continue current dose of Dilaudid Generic Name Dose Route Start Last Admin Trade Name Freq PRN Reason Stop Dose Admin Hydromorphone HCl 2 mg 08/16/16 09:53 08/21/16 10:14 Dilaudid Inj/Pf 2 Mg/Ml Ampule IV 08/23/16 09:51 2 mg Q4HP PRN PAIN (4) High output ileostomy Is this a current diagnosis for this admission?: Yes (5) Acute renal failure Qualifiers: Acute renal failure type: unspecified Qualified Code(s): N17.9 - Acute kidney failure, unspecified Is this a current diagnosis for this admission?: Yes (6) Hypomagnesemia Is this a current diagnosis for this admission?: YesPlan: replete and recheck (7) Peritonitis (acute) generalized Is this a current diagnosis for this admission?: YesPlan: Currently on Cipro and Flagyl and have de-escalated him from his triple antibiotic therapy. At this time, I feel the patient requires surgical intervention. (8) Maintenance chemotherapy Is this a current diagnosis for this admission?: Yes (9) Colon cancer metastasized to liver Is this a current diagnosis for this admission?: Yes (10) SIRS (systemic inflammatory response syndrome) Is this a current diagnosis for this admission?: Yes (11) Full code status Is this a current diagnosis for this admission?: Yes - Time Time Spent with patient: 25-34 minutes Medications reviewed and adjusted accordingly: Yes Anticipated discharge: [facility]: when bed available - Plan Summary Plan Summary: Time, I am highly suspicious for advancing metastatic disease with carcinomatosis of the abdomen. Both patient and his family are unreasonable about his expected prognosis. I have conveyed this to the accepting facility.
[2016-08-21] MEDS ORDERED: MAGNESIUM SULFATE/D5W 1 GM/100 ML RTUPB IV ONE (16:28)
--- NOTE | 2016-08-21 20:24 | RADIOLOGY REPORT (SQ) ---
EXAM DESCRIPTION: U/S RETROPERITON (RENAL/AORTA) COMPLETED DATE/TIME: 08/21/2016 8:04 pm REASON FOR STUDY: increasing crea, hydro on last CT COMPARISON: CT dated 08/16/2016 TECHNIQUE: Dynamic and static grayscale images acquired of the kidneys and bladder and recorded on P ACS. Additional selected color Doppler and spectral images recorded. LIMITATIONS: None. FINDINGS: RIGHT KIDNEY: The right kidney is echogenic. There is persistent hydronephrosis no defini te interval change when compared to prior CT. LEFT KIDNEY: The left kidney is echogenic. There is left-sided hydronephrosis. Again no appreciabl e changed compared to CT. BLADDER: There is debris in the bladder. Ureteral jets are not demonstrated. OTHER FINDINGS: No other significant finding. IMPRESSION: Bilateral hydronephrosis right greater than left. Overall findings appear grossly stabl e when compared to CT dated August 16. TECHNICAL DOCUMENTATION: JOB ID: [id number] [employer]- All Rights Reserved
[2016-08-22] MEDS: METOCLOPRAMIDE HCL INJ/PF 10 MG/2 ML SDV IV SCH ×3 (00:23→11:54)
[2016-08-22] MEDS: METRONIDAZOLE 500 MG/NS RTU 100 ML IV SCH ×3 (00:23→11:54)
[2016-08-22] MEDS: HYDROMORPHONE HCL INJ/PF 2 MG/ML AMPULE IV PRN ×4 (02:01→14:08)
[2016-08-22] MEDS: POTASSI CL 20 MEQ/D5-1/2NS 1L 1,000 ML IV PRN ×2 (03:06→13:08)
[2016-08-22 09:20] LABS: HEMATOCRIT 26.3 % (37.9-51.0); HEMOGLOBIN 8.1 g/dL (13.5-17.0); MEAN CORPUSCULAR HGB CONC 30.9 g/dL (32.0-36.0); MEAN CORPUSCULAR VOLUME 74 fl (80-97); RED BLOOD COUNT 3.54 10^6/uL (4.35-5.55); RED CELL DISTRIBUTION WIDTH 15.9 % (11.5-14.0); WHITE BLOOD COUNT 18.3 10^3/uL (4.0-10.5)
[2016-08-22 09:36] LABS: BAND NEUTROPHILS % (MANUAL) 1 % (3-5); BASOPHILS % (MANUAL) 0 % (0-2); EOSINOPHILS % (MANUAL) 0 % (0-6); LYMPHOCYTES % (MANUAL) 5 % (13-45); TOTAL CELLS COUNTED 100
--- NOTE | 2016-08-22 09:37 | RADIOLOGY REPORT (SQ) ---
EXAM DESCRIPTION: KUB/ABDOMEN (SINGLE VIEW) COMPLETED DATE/TIME: 08/22/2016 9:25 am REASON FOR STUDY: BOWEL STRUCTION COMPARISON: CT abdomen pelvis 08/11/2016, 08/16/2016 Abdominal films 08/18/2016, 08/19/2016, 08/20/2016, 08/21/2016 NUMBER OF VIEWS: One view. TECHNIQUE: Supine radiographic image of the abdomen acquired. LIMITATIONS: None. FINDINGS: BOWEL GAS PATTERN: Nasogastric tube decompresses the stomach. Few air-filled nondistended left upper quadrant small bowel loops. There is still moderate gaseous distention of the 2nd portio n duodenum, nonspecific. Right ileostomy unchanged. CALCIFICATIONS: No suspicious calcifications. SOFT TISSUES: No gross mass or suggestion of organomegaly. HARDWARE: Nasogastric tube tip and side port in the stomach BONES: No acute fracture. No worrisome bone lesions. OTHER: No other significant finding. IMPRESSION: Significant decrease in left upper quadrant air-filled dilated small bowel loops compare d to the previous studies. TECHNICAL DOCUMENTATION: JOB ID: [id number] [employer]- All Rights Reserved
[2016-08-22 09:38] LABS: TOXIC GRANULATION 2+; TOXIC VACUOLATION PRESENT
[2016-08-22 09:39] LABS: ANISOCYTOSIS 1+; HYPOCHROMASIA 1+; MICROCYTOSIS 1+; OVALOCYTES SLIGHT; POIKILOCYTOSIS 1+; POLYCHROMASIA SLIGHT; ROULEAUX SLIGHT; SCHISTOCYTES SLIGHT; TARGET CELLS 3+
[2016-08-22 09:44] LABS: ANION GAP 10 (5-19); BLOOD UREA NITROGEN 4 mg/dL (7-20); CALCIUM 8.2 mg/dL (8.4-10.2); CARBON DIOXIDE 27 mmol/L (22-30); CHLORIDE 105 mmol/L (98-107); CREATININE RESULT 1.41 mg/dL (0.52-1.25); GLUCOSE 104 mg/dL (75-110); POTASSIUM 3.6 mmol/L (3.6-5.0); SODIUM 141.9 mmol/L (137-145)
[2016-08-22] MEDS: FAMOTIDINE INJ/PF 20 MG/2 ML SDV IV SCH (10:22)
[2016-08-22] MEDS: ENOXAPARIN SODIUM INJ 40 MG/0.4 ML DISP.SYRIN SUBCUT SCH (10:22)
[2016-08-22] MEDS: CIPROFLOXACIN 400 MG/D5W RTU 200 ML IV SCH (10:22)
[2016-08-22] MEDS ORDERED: NORMAL SALINE 1000 ML 1,000 ML IV ONE (11:29)
--- NOTE | 2016-08-22 12:34 | PDOC TRANSFER SUMMARY ---
General Admission Date/PCP: 08/04/16 23:52 Admission Date: 08/04/16 Transfer Date: 08/22/16 Accepting Facility: [facility] Accepting Physician: Dr. Morales Resuscitation Status: Full Code - Transfer Diagnosis (1) Sepsis Is this a current diagnosis for this admission?: Yes (2) Peritonitis (acute) generalized Is this a current diagnosis for this admission?: Yes (3) Small bowel obstruction Is this a current diagnosis for this admission?: Yes (4) Ileus Is this a current diagnosis for this admission?: Yes (5) Chronic pain Is this a current diagnosis for this admission?: Yes (6) Acute renal failure Is this a current diagnosis for this admission?: Yes (7) Hypomagnesemia Is this a current diagnosis for this admission?: Yes (8) Maintenance chemotherapy Is this a current diagnosis for this admission?: Yes (9) Colon cancer metastasized to liver Is this a current diagnosis for this admission?: Yes (10) Full code status Is this a current diagnosis for this admission?: Yes - Transfer Medications Home Medications: Alprazolam [Alprazolam] 0.5 mg PO BIDP PRN 08/05/16 Hydromorphone HCl [Dilaudid] 8 mg PO Q4H 08/05/16 Loperamide HCl [Imodium A-D] 2 mg PO ASDIR PRN 08/05/16 Magnesium Oxide [Mag-Ox 400 mg Tablet] 800 mg PO TID 08/05/16 Transfer Medications: Current Medications Acetaminophen (Tylenol 325 Mg Tablet) 650 mg PO Q4HP PRN PRN Reason: FOR PAIN OR TEMP Stop: 09/03/16 23:51 Last Admin: 08/07/16 13:38 Dose: 650 mg Dextrose (Dextrose Inj 50% Syringe (25 Gm/50 Ml)) 12.5 gm IV PRN PRN; Protocol PRN Reason: FOR BG 50-69 IN ALERT PATIENT Stop: 09/16/16 08:49 Dextrose (Dextrose Inj 50% Syringe (25 Gm/50 Ml)) 25 gm IV PRN PRN; Protocol PRN Reason: See Label Comments Stop: 09/16/16 08:49 Enoxaparin Sodium (Lovenox Inj 40 Mg/0.4 Ml Disp.Syrin) 40 mg SUBCUT DAILY JUAN RAMON Stop: 09/04/16 09:59 Last Admin: 08/22/16 10:22 Dose: 40 mg Famotidine (Pepcid Inj/Pf 20 Mg/2 Ml Sdv) 20 mg IV Q12 JUAN RAMON Stop: 09/04/16 09:59 Last Admin: 08/22/16 10:22 Dose: 20 mg Glucagon (Glucagen Inj 1 Mg Vial) 1 mg SUBCUT PRN PRN; Protocol PRN Reason: Evaluate for BG < 70 Stop: 09/16/16 08:49 Glucose (Glutose 40% Gel 15 Gm Tube) 15 gm PO PRN PRN; Protocol PRN Reason: For BG 50-69 in Alert Patient Stop: 09/16/16 08:49 Glucose (Glutose 40% Gel 15 Gm Tube) 30 gm PO PRN PRN; Protocol PRN Reason: FOR BG < 50 IN ALERT PATIENT Stop: 09/16/16 08:49 Hydromorphone HCl (Dilaudid Inj/Pf 2 Mg/Ml Ampule) 2 mg IV Q4HP PRN PRN Reason: PAIN Stop: 08/23/16 09:51 Last Admin: 08/22/16 10:22 Dose: 2 mg Potassium Chloride/Dextrose/Sod Cl (D5-1/2ns 1000 Ml/Kcl 20 Meq Premix Bag) 1, 000 mls @ 150 mls/hr IV CONTINUOUS PRN PRN Reason: THIS MED IS NOT "PRN" Stop: 09/11/16 09:58 Last Admin: 08/22/16 03:06 Dose: 1,000 ml Ciprofloxacin/Dextrose (Cipro Rtu 400 Mg/D5w 200 Ml Premix Bag) 200 mls @ 200 mls/hr IV Q12 COUNTS INCLUDE 234 BEDS AT THE [facility] Stop: 08/27/16 21:59 Last Admin: 08/22/16 10:22 Dose: 200 ml Metronidazole (Flagyl Rtu 500 Mg/Ns 100ml Premix) 100 mls @ 100 mls/hr IV Q6 JUAN RAMON Stop: 08/27/16 17:59 Last Admin: 08/22/16 11:54 Dose: 100 ml Metoclopramide HCl (Reglan Inj/Pf 10 Mg/2 Ml Sdv) 10 mg IV Q6 JUAN RAMON Stop: 09/19/16 11:59 Last Admin: 08/22/16 11:54 Dose: 10 mg Ondansetron HCl (Zofran Inj/Pf 4 Mg/2 Ml Sdv) 4 mg IV Q6HP PRN PRN Reason: FOR NAUSEA/VOMITING Stop: 09/06/16 23:20 Last Admin: 08/20/16 23:29 Dose: 4 mg Pharmacy Profile Note (Medication Communication Order) 1 each MC .NOTICE NR Stop: 09/16/16 09:14 Phenol (Chloraseptic Sore Throat [place] 177 Ml) 2 spray PO Q1HP PRN Stop: 09/18/16 09:34 Sodium Chloride (Saline Flush 2.5 Ml Monoject Prefil Syrin) 2.5 ml IV Q8 JUAN RAMON Stop: 09/04/16 05:59 Last Admin: 08/22/16 06:51 Dose: Not Given - Allergies Allergies/Adverse Reactions: No Known Allergies Allergy (Verified 08/04/16 14:39) - Diet/Activity Discharge Diet: Other (Comments) - npo Hospital Course Hospital Course: Was admitted for generalized peritonitis which is felt to be secondary to partial small bowel obstruction. At the time of admission, patient was offered surgery by several surgeons, but patient declined despite knowing that this may worsen his condition. Patient's peritonitis has been medically managed on and off with a multitude of antibiotics including vancomycin, ertapenem, Zosyn, cefepime, Cipro, Flagyl, and Levaquin. Recently, patient was thought to have pneumonia, but this was ruled out based on patient's symptomatology and lack of radiographic evidence. Currently patient has been de-escalated to Cipro and Flagyl. Patient has not been improving and is better admonitions to remain n.p.o. he still continues to eat. Patient does have an NG and this has been placed to suction. Patient is now developing a dilated duodenum consistent with a worsening of his underlying obstruction and feculant/bilious material through NG. Despite hydration, patients renal function is beginning to worsen and repeat ultrasound of the kidneys done on 08/21/16 shows mild bilateral hydronepheosis consistant with CT from 08/16/16. Patient was accepted by [facility] for ongoing care. We appreciate our colleagues assistance in this complex patient. Physical Exam Vital Signs: Temp Pulse Resp BP Pulse Ox 98.4 F 84 18 132/86 H 96 08/22/16 07:20 08/22/16 07:20 08/22/16 07:20 08/22/16 07:20 08/22/16 07:20 Intake & Output 08/21/16 08/22/16 08/23/16 06:59 06:59 06:59 Intake Total 5315 9306 Output Total 2174 4139 Balance 4040 -550 Weight 74.3 kg 69.3 kg Exam: GENERAL: No acute distress, thin, acute and chronically ill-appearing HEENT: Conjunctiva clear, nonicteric, moist mucous membranes, no JVD, midline trachea RESPIRATORY: Clear to auscultation bilaterally, no wheezes, no rhonchi CARDIAC: Regular rate and rhythm, no murmurs/gallops/rubs ABDOMEN:firm, distended, mildly tender to palpation periumbilical, absent bowel sounds, no rebound, no guarding, RLQ ileostomy present with air in bag with small amount of yellow fluid EXTREMETIES: No cyanosis, clubbing; trace edema NEUROLOGIC: Alert, oriented to person/place/time, CN's grossly intact, no focal deficits SKIN: No rash, wounds PSYCH: Normal mood, normal affect Results Laboratory Results: 08/22/16 09:00 08/22/16 09:00 08/22/16 08/22/16 08/22/16 09:00 09:00 09:00 WBC 18.3 H RBC 3.54 L Hgb 8.1 L Hct 26.3 L MCV 74 L MCH 23.0 L MCHC 30.9 L RDW 15.9 H Plt Count 710 H Seg Neutrophils % Not Reportable Lymphocytes % Not Reportable Monocytes % Not Reportable Eosinophils % Not Reportable Basophils % Not Reportable Absolute Neutrophils Not Reportable Absolute Lymphocytes Not Reportable Absolute Monocytes Not Reportable Absolute Eosinophils Not Reportable Absolute Basophils Not Reportable Sodium 141.9 Potassium 3.6 Chloride 105 Carbon Dioxide 27 Anion Gap 10 BUN 4 L Creatinine 1.41 H Est GFR ( Amer) > 60 Est GFR (Non-Af Amer) 55 L Glucose 104 Calcium 8.2 L Magnesium 1.7 08/20/16 17:20 Clean Catch Midstream Urine Culture - Final NO GROWTH 2 DAYS 08/16/16 18:30 Blood Blood Culture - Final NO GROWTH IN 5 DAYS 08/16/16 17:54 Blood Blood Culture - Final NO GROWTH IN 5 DAYS Impressions: Head CT 08/12/16 00:00 IMPRESSION: NORMAL BRAIN CT WITHOUT AND WITH CONTRAST. Abdomen/Pelvis CT 08/16/16 00:00 IMPRESSION: Surgical changes of the bowel noting multiple dilated loops; the absence of enteric contrast limits the ability to discern between loculated fluid and enteric fluid. Interval development of mild bilateral hydronephrosis and hydroureter, favored to be on the basis of mechanical obstruction due to adjacent bowel distension. Chest X-Ray 08/19/16 00:00 IMPRESSION: Low lung volumes with basilar subsegmental atelectasis bilaterally. Renal Ultrasound 08/21/16 00:00 IMPRESSION: Bilateral hydronephrosis right greater than left. Overall findings appear grossly stable when compared to CT dated August 16. KUB X-Ray 08/22/16 09:15 IMPRESSION: Significant decrease in left upper quadrant air-filled dilated small bowel loops compared to the previous studies. Plan Time Spent: Less than 30 Minutes
[2016-08-22 14:00] VITALS: BP 117/77
== END 2016-08-22 14:58 | disposition short-term general hospital (02) | DRG 871 ==
LOC: ER 14:29 → UNDOADMIN 20:50 → EH 20:50 → 3N 08-05 01:46 → EH 08-05 01:46 → 3S 08-20 18:47
PROVIDERS: ADMIT Family Medicine; ATTEND Family Medicine
PROC: 0D9670Z Drainage of Stomach with Drainage Device, Via Natural or Artificial Opening (ICD-10-PCS; principal; 2016-08-17)
DX: A41.9 Sepsis, unspecified organism (principal); K65.0 Generalized (acute) peritonitis; C78.6 Secondary malignant neoplasm of retroperitoneum and peritoneum; C78.7 Secondary malignant neoplasm of liver and intrahepatic bile duct; N17.9 Acute kidney failure, unspecified; I44.2 Atrioventricular block, complete; K56.7 Ileus, unspecified; Z85.038 Personal history of other malignant neoplasm of large intestine; E83.42 Hypomagnesemia; R00.1 Bradycardia, unspecified; G89.3 Neoplasm related pain (acute) (chronic); F41.1 Generalized anxiety disorder; Z90.49 Acquired absence of other specified parts of digestive tract; Z79.899 Other long term (current) drug therapy; Z93.2 Ileostomy status
CPT/HCPCS: 36415; 70470; 71010; 71020; 74000; 74176; 74177; 76770; 80048; 80053; 80202; 81001; 82565; 83690; 83735; 84100; 85025; 85027; 87040; 87086; 87493; 93005; 93010; 93306; 94799; 96365; 96375; 99285; J0461; J0692; J0744; J1170; J1335; J1650; J1956; J2060; J2270; J2405; J2543; J2550; J2765; J3370; J3475; J3480; J3490; J7030; J7060; S0028

== ENCOUNTER 2016-09-23 13:25 | Inpatient (IN) | payer MEDICAID ==
[2016-09-23] MEDS ORDERED: DEXTROSE 50%-WATER 25 GM/50 ML DISP.SYRIN IV PRN ×2 (17:12)
[2016-09-23] MEDS ORDERED: ONDANSETRON HCL INJ/PF 4 MG/2 ML SDV IV PRN (17:12)
[2016-09-23] MEDS ORDERED: ACETAMINOPHEN 325 MG TABLET PO PRN (17:12)
[2016-09-23] MEDS ORDERED: DEXTROSE 40% GEL 15 GM TUBE PO PRN ×2 (17:12)
[2016-09-23] MEDS ORDERED: GLUCAGON,HUMAN RECOMB 1 MG INJ SUBCUT PRN (17:12)
[2016-09-23] MEDS ORDERED: ALPRAZOLAM 0.5 MG TABLET PO PRN (17:14)
[2016-09-23] MEDS ORDERED: PHARMACY COMMUNICATION ORDER MC NR (17:15)
--- NOTE | 2016-09-23 17:23 | PDOC H&P ---
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 status, and NG tube decompression. Patient is tentatively scheduled to have HIPEC at [facility] by Dr. Villa on 10/16/2016. Dr. Villa can be contacted at [phone]. Patient has no specific complaints. He is having ostomy output now since being transferred to [facility]. Prior to transfer to [facility] he was not having ostomy output. Past Medical History Cardiac Medical History: Denies: Congestive Heart Failure, DVT, Hyperlipidema, Hypertension, Pulmonary Embolism Pulmonary Medical History: Denies: Asthma, Chronic Obstructive Pulmonary Disease (COPD), Sleep Apnea, Tuberculosis Neurological Medical History: Denies: Seizures Endocrine Medical History: Denies: Diabetes Mellitus Type 1, Diabetes Mellitus Type 2, Hyperthyroidism, Hypothyroidism Malignancy Medical History: Reports: Colorectal Cancer - Metastatic to liver, status post complete colectomy. Ileostomy. GI Medical History: Denies: Cirrhosis, Gastroesophageal Reflux Disease, Hepatitis Musculoskeltal Medical History: Denies: Arthritis Psychiatric Medical History: Denies: Depression Infectious Medical History: Denies: Clostridium Difficile, Methicillin-Resistant Staph Aureus Past Surgical History Past Surgical History: Reports: Appendectomy, Cholecystectomy, Ileostomy, Other - Total colectomy for colorectal cancer. Social History Information Source: Patient, Transfer Record Smoking Status: Unknown if Ever Smoked Frequency of Alcohol Use: None Hx Recreational Drug Use: No Drugs: None Hx Prescription Drug Abuse: No - Advance Directive Resuscitation Status: Full Code Family History Family History: Reviewed & Not Pertinent Parental Family History Reviewed: Yes Children Family History Reviewed: Yes Sibling(s) Family History Reviewed.: Yes Medication/Allergy Home Medications: Alprazolam [Alprazolam] 0.5 mg PO BIDP PRN 08/05/16 Hydromorphone HCl [Dilaudid] 8 mg PO Q4H 08/05/16 Loperamide HCl [Imodium A-D] 2 mg PO ASDIR PRN 08/05/16 Magnesium Oxide [Mag-Ox 400 mg Tablet] 800 mg PO TID 08/05/16 Allergies/Adverse Reactions: No Known Allergies Allergy (Verified 08/04/16 14:39) Review of Systems Constitutional: ABSENT: chills, fever(s), headache(s), weight gain, weight loss Eyes: ABSENT: visual disturbances Ears: ABSENT: hearing changes Cardiovascular: ABSENT: chest pain, dyspnea on exertion, edema, orthropnea, palpitations Respiratory: ABSENT: cough, hemoptysis Gastrointestinal: ABSENT: abdominal pain, constipation, diarrhea, hematemesis, hematochezia, nausea, vomiting Genitourinary: ABSENT: dysuria, hematuria Musculoskeletal: ABSENT: joint swelling Integumentary: ABSENT: rash, wounds Neurological: ABSENT: abnormal gait, abnormal speech, confusion, dizziness, focal weakness, syncope Psychiatric: ABSENT: anxiety, depression, homidical ideation, suicidal ideation Endocrine: ABSENT: cold intolerance, heat intolerance, polydipsia, polyuria Hematologic/Lymphatic: ABSENT: easy bleeding, easy bruising Physical Exam Vital Signs: Temp Pulse Resp BP Pulse Ox 99.0 F 95 17 116/84 100 09/23/16 17:00 09/23/16 17:00 09/23/16 17:00 09/23/16 17:00 09/23/16 17:00 Intake & Output 09/22/16 09/23/16 09/24/16 06:59 06:59 06:59 Weight 54 kg PHYSICAL EXAM: GENERAL: Appears well, no acute distress, underweight HEENT: Normocephalic, no scleral icterus, conjunctiva clear, EOEM intact, PERRLA , moist mucous membranes. NG tube in place NECK: trachea midline, no thyromegally RESPIRATORY: Clear to auscultation, no wheezes/rhonchi CARDIAC: Regular rate and rhythm, no murmur/taylor/rub ABDOMEN: Soft, no distension, no tenderness, no guarding, normal bowel sounds, negative Harris sign. Ileostomy in right lower quadrant with watery output RECTAL: deferred : deferred EXTREMITIES: No edema, cyanosis, clubbing MUSCULOSKELETAL: No joint swelling or deformity VASCULAR: normal peripheral pulses NEUROLOGIC: Alert, oriented to person/place/time, normal speech, cranial nerves grossly intact, 5/5 strength in all extremities, tactile sensation intact in all extremities SKIN: No rash, no wounds, no worrisome skin lesions PSYCHIATRIC: Normal mood, normal affect Assessment & Plan - Diagnosis (1) Small bowel obstruction Is this a current diagnosis for this admission?: YesPlan: Continue n.p.o. status. Continue TPN and consult dietitian for recommendations. 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 Patient is tentatively scheduled to have HIPEC at [facility] by Dr. Villa on . Dr. Villa can be contacted at [phone]. We will continue nutritional support and physical therapy pending transfer back to [facility] on 10/15/2016. (3) DVT prophylaxis Is this a current diagnosis for this admission?: YesPlan: SCDs. I will avoid pharmacologic prophylaxis given widely metastatic intra- abdominal cancer risk of bleeding. (4) Full code status Is this a current diagnosis for this admission?: Yes - Time Time Spent: 50 to 70 Minutes Anticipated discharge: [facility] Within: Other - on 10/15/2016
[2016-09-23] MEDS ORDERED: ACETAMINOPHEN 325 MG TABLET NG PRN (17:35)
[2016-09-23] MEDS ORDERED: ALPRAZOLAM 0.5 MG TABLET NG PRN (17:36)
[2016-09-23] MEDS: DIPHENHYDRAMINE HCL 50 MG/ML VIAL IV PRN (17:51)
--- NOTE | 2016-09-23 18:23 | RADIOLOGY REPORT (SQ) ---
EXAM DESCRIPTION: KUB/ABDOMEN (SINGLE VIEW) COMPLETED DATE/TIME: 09/23/2016 6:10 pm REASON FOR STUDY: Check Placement of NG Tube COMPARISON: 08/22/2016 NUMBER OF VIEWS: One view. TECHNIQUE: Supine radiographic image of the abdomen acquired. LIMITATIONS: None. FINDINGS: BOWEL GAS PATTERN: Nonspecific gas pattern. CALCIFICATIONS: No suspicious calcifications. SOFT TISSUES: No gross mass or suggestion of organomegaly. HARDWARE: An NG tube is present with the tip near the antrum of the stomach. BONES: No acute fracture. No worrisome bone lesions. OTHER: No other significant finding. IMPRESSION: Tube placement as described. TECHNICAL DOCUMENTATION: JOB ID: [id number] [employer]- All Rights Reserved
[2016-09-23] MEDS: POTASSI CL 20 MEQ/D5-1/2NS 1L 1,000 ML IV PRN (19:45)
[2016-09-23] MEDS: HYDROMORPHONE HCL INJ/PF 2 MG/ML AMPULE IV PRN (19:46)
[2016-09-24] MEDS: HYDROMORPHONE HCL INJ/PF 2 MG/ML AMPULE IV PRN ×6 (00:34→23:05)
[2016-09-24] MEDS: DIPHENHYDRAMINE HCL 50 MG/ML VIAL IV PRN ×3 (00:34→21:08)
[2016-09-24] MEDS: POTASSI CL 20 MEQ/D5-1/2NS 1L 1,000 ML IV PRN (05:37)
[2016-09-24 06:51] LABS: ABSOLUTE BASOPHILS # (AUTO) 0.1 10^3/uL (0.0-0.2); ABSOLUTE EOSINOPHILS # (AUTO) 0.2 10^3/uL (0.0-0.6); ABSOLUTE LYMPHOCYTES (AUTO) 1.1 10^3/uL (0.5-4.7); ABSOLUTE MONOCYTES (AUTO) 0.9 10^3/uL (0.1-1.4); ABSOLUTE NEUT (AUTO) 13.7 10^3/uL (1.7-8.2); BASOPHILS % (AUTO) 0.4 % (0-2); HEMATOCRIT 26.9 % (37.9-51.0); HEMOGLOBIN 8.5 g/dL (13.5-17.0); HGB HCT DIFFERENCE -1.4; LYMPHOCYTES % (AUTO) 6.9 % (13-45); MEAN CORPUSCULAR HEMOGLOBIN 22.7 pg (27.0-33.4); MEAN CORPUSCULAR HGB CONC 31.8 g/dL (32.0-36.0); MEAN CORPUSCULAR VOLUME 72 fl (80-97); MONOCYTES % (AUTO) 5.6 % (3-13); RED BLOOD COUNT 3.75 10^6/uL (4.35-5.55); RED CELL DISTRIBUTION WIDTH 15.8 % (11.5-14.0); SEGMENTED NEUTROPHILS % (AUTO) 86.1 % (42-78); WHITE BLOOD COUNT 15.9 10^3/uL (4.0-10.5)
[2016-09-24 07:02] LABS: ALANINE AMINOTRANSFERASE 88 U/L (21-72); ALBUMIN 3.1 g/dL (3.5-5.0); ALKALINE PHOSPHATASE 195 U/L (38-126); ANION GAP 14 (5-19); ASPARTATE AMINO TRANSFERASE 56 U/L (17-59); BILIRUBIN,DIRECT 0.5 mg/dL (0.0-0.4); BILIRUBIN,TOTAL 0.5 mg/dL (0.2-1.3); BLOOD UREA NITROGEN 19 mg/dL (7-20); CALCIUM 9.3 mg/dL (8.4-10.2); CARBON DIOXIDE 27 mmol/L (22-30); CHLORIDE 98 mmol/L (98-107); GLUCOSE 96 mg/dL (75-110); SODIUM 138.8 mmol/L (137-145); TOTAL PROTEIN 8.6 g/dL (6.3-8.2)
[2016-09-24 07:11] LABS: POTASSIUM 5.2 mmol/L (3.6-5.0)
[2016-09-24] MEDS ORDERED: DEXTROSE 50%-WATER SYRINGE 25 GM/50 ML DOSE IV PRN (10:53)
[2016-09-24] MEDS ORDERED: DEXTROSE 50%-WATER SYRINGE 12.5 GM/25 ML DOSE IV PRN (10:53)
[2016-09-24] MEDS ORDERED: GLUCAGON,HUMAN RECOMB 1 MG INJ IM PRN (10:53)
[2016-09-24] MEDS ORDERED: DEXTROSE 40% GEL 15 GM TUBE X 2 PO PRN (10:53)
[2016-09-24] MEDS ORDERED: INSULIN REG, HUMAN 100 UNIT/ML 3 ML VIAL (PYX) SUBCUT PRN (10:53)
[2016-09-24] MEDS ORDERED: DEXTROSE 40% GEL 15 GM TUBE PO PRN (10:53)
[2016-09-24] MEDS ORDERED: DEXTROSE 10%-WATER 1,000 ML IV PRN (10:53)
--- NOTE | 2016-09-24 11:46 | PDOC PROGRESS REPORT ---
Subjective Progress Note for:: 09/24/16 Subjective:: Patient has no complaints. He has had no nausea or vomiting overnight. His pain is controlled. Physical Exam Vital Signs: Temp Pulse Resp BP Pulse Ox 97.5 F 83 16 126/89 H 100 09/24/16 08:23 09/24/16 08:23 09/24/16 08:23 09/24/16 08:23 09/24/16 08:23 Intake & Output 09/23/16 09/24/16 09/25/16 06:59 06:59 06:59 Intake Total 1093 355 Output Total 1999 1200 Balance -907 -845 Weight 57.5 kg GENERAL: No acute distress HEENT: Conjunctiva clear, nonicteric, moist mucous membranes, no JVD, midline trachea RESPIRATORY: Clear to auscultation bilaterally, no wheezes, no rhonchi CARDIAC: Regular rate and rhythm, no murmurs/gallops/rubs ABDOMEN: Soft, nondistended, nontender, positive bowel sounds, no rebound, no guarding. Ileostomy present in right lower quadrant with liquid output EXTREMETIES: No edema, cyanosis, clubbing NEUROLOGIC: Alert, oriented to person/place/time, CN's grossly intact, no focal deficits SKIN: No rash, wounds PSYCH: Normal mood, normal affect Results Laboratory Results: 09/24/16 06:31 09/24/16 06:31 09/24/16 09/24/16 09/24/16 05:26 05:26 06:31 WBC 15.9 H RBC 3.75 L Hgb 8.5 L Hct 26.9 L MCV 72 L MCH 22.7 L MCHC 31.8 L RDW 15.8 H Plt Count 703 H Seg Neutrophils % 86.1 H Lymphocytes % 6.9 L Monocytes % 5.6 Eosinophils % 1.0 Basophils % 0.4 Absolute Neutrophils 13.7 H Absolute Lymphocytes 1.1 Absolute Monocytes 0.9 Absolute Eosinophils 0.2 Absolute Basophils 0.1 Sodium Potassium Chloride Carbon Dioxide Anion Gap BUN Creatinine Est GFR ( Amer) Est GFR (Non-Af Amer) Glucose Calcium Magnesium Total Bilirubin AST ALT Alkaline Phosphatase Total Protein Albumin 09/24/16 06:31 WBC RBC Hgb Hct MCV MCH MCHC RDW Plt Count Seg Neutrophils % Lymphocytes % Monocytes % Eosinophils % Basophils % Absolute Neutrophils Absolute Lymphocytes Absolute Monocytes Absolute Eosinophils Absolute Basophils Sodium 138.8 Potassium 5.2 H Chloride 98 Carbon Dioxide 27 Anion Gap 14 BUN 19 Creatinine 0.50 L Est GFR ( Amer) > 60 Est GFR (Non-Af Amer) > 60 Glucose 96 Calcium 9.3 Magnesium Total Bilirubin 0.5 AST 56 ALT 88 H Alkaline Phosphatase 195 H Total Protein 8.6 H Albumin 3.1 L Impressions: KUB X-Ray 09/23/16 17:12 IMPRESSION: Tube placement as described. Assessment & Plan - Diagnosis (1) Small bowel obstruction Is this a current diagnosis for this admission?: YesPlan: Continue n.p.o. status except ice chips. Continue TPN and consult dietitian for recommendations. KUB on 09/23/2016 with nonspecific bowel gas pattern. Patient has good ileostomy output. 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 Patient is tentatively scheduled to have HIPEC at [facility] by Dr. Villa on . Dr. Villa can be contacted at [phone]. We will continue nutritional support and physical therapy pending transfer back to [facility] on 10/15/2016. (3) DVT prophylaxis Is this a current diagnosis for this admission?: Yes (4) Full code status Is this a current diagnosis for this admission?: Yes - Time Time Spent with patient: 15-24 minutes
[2016-09-24 13:01] LABS: PROTHROMBIN TIME 15.2 SEC (11.4-15.4)
--- NOTE | 2016-09-24 13:54 | Physician Advisory Note ---
Physician Advisor ProgressNote .: [facility], I have reviewed the medical record for this patient. Physician Advisor Statement: Please consider documentin. "underweight with protein-calorie malnutrition [state mild, mod, or severe] with BMI 18.2, Cr 0.5, anemia, metastatic CA, prolonged NPO status w/TPN, ____[? 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 Thanks! CK
[2016-09-24] MEDS: AMINO ACIDS 5%/D25W 1,000 ML IV PRN (16:30)
[2016-09-25] MEDS: HYDROMORPHONE HCL INJ/PF 2 MG/ML AMPULE IV PRN ×4 (04:19→20:08)
[2016-09-25] MEDS: DIPHENHYDRAMINE HCL 50 MG/ML VIAL IV PRN ×3 (06:21→23:12)
[2016-09-25 07:06] LABS: ABSOLUTE BASOPHILS # (AUTO) 0.1 10^3/uL (0.0-0.2); ABSOLUTE EOSINOPHILS # (AUTO) 0.2 10^3/uL (0.0-0.6); ABSOLUTE NEUT (AUTO) 16.4 10^3/uL (1.7-8.2); BASOPHILS % (AUTO) 0.4 % (0-2); EOSINOPHILS % (AUTO) 1.1 % (0-6); HEMATOCRIT 26.7 % (37.9-51.0); HEMOGLOBIN 8.4 g/dL (13.5-17.0); HGB HCT DIFFERENCE -1.5; LYMPHOCYTES % (AUTO) 5.4 % (13-45); MEAN CORPUSCULAR HEMOGLOBIN 22.9 pg (27.0-33.4); MEAN CORPUSCULAR HGB CONC 31.4 g/dL (32.0-36.0); MEAN CORPUSCULAR VOLUME 73 fl (80-97); MONOCYTES % (AUTO) 5.2 % (3-13); RED BLOOD COUNT 3.65 10^6/uL (4.35-5.55); RED CELL DISTRIBUTION WIDTH 15.3 % (11.5-14.0); SEGMENTED NEUTROPHILS % (AUTO) 87.9 % (42-78); WHITE BLOOD COUNT 18.6 10^3/uL (4.0-10.5)
[2016-09-25 08:17] LABS: ALANINE AMINOTRANSFERASE 92 U/L (21-72); ALBUMIN 3.2 g/dL (3.5-5.0); ALKALINE PHOSPHATASE 223 U/L (38-126); ANION GAP 15 (5-19); ASPARTATE AMINO TRANSFERASE 60 U/L (17-59); BILIRUBIN,DIRECT 0.5 mg/dL (0.0-0.4); BILIRUBIN,TOTAL 0.5 mg/dL (0.2-1.3); BLOOD UREA NITROGEN 15 mg/dL (7-20); CALCIUM 9.4 mg/dL (8.4-10.2); CARBON DIOXIDE 28 mmol/L (22-30); CHLORIDE 95 mmol/L (98-107); CREATININE RESULT 0.52 mg/dL (0.52-1.25); GLUCOSE 98 mg/dL (75-110); MAGNESIUM 1.6 mg/dL (1.6-2.3); PHOSPHORUS 6.4 mg/dL (2.5-4.5); POTASSIUM 4.7 mmol/L (3.6-5.0); SODIUM 137.5 mmol/L (137-145); TOTAL PROTEIN 8.8 g/dL (6.3-8.2)
[2016-09-25 08:24] LABS: PREALBUMIN 7.5 mg/dL (17.6-36.0)
--- NOTE | 2016-09-25 08:53 | RADIOLOGY REPORT (SQ) ---
EXAM DESCRIPTION: CHEST SINGLE VIEW COMPLETED DATE/TIME: 09/25/2016 8:40 am REASON FOR STUDY: elevated WBC COMPARISON: Chest films 08/16/2016, 08/19/2016 EXAM PARAMETERS: NUMBER OF VIEWS: One view. TECHNIQUE: Single frontal radiographic view of the chest acquired. RADIATION DOSE: NA LIMITATIONS: None. FINDINGS: LUNGS AND PLEURA: Minimal bandlike atelectasis both lung bases. No fluffy alveolar infiltrates worrisome for edema or pneumonia. No pleural effusions or pneumothorax. MEDIASTINUM AND HILAR STRUCTURES: No masses. Contour normal. HEART AND VASCULAR STRUCTURES: Heart normal in size. Normal vasculature. BONES: No acute findings. HARDWARE: Nasogastric tube tip and side port in stomach. Right-sided permanent central line tip supe rior vena cava. Right PICC line tip superior vena cava. OTHER: No other significant finding. IMPRESSION: Minimal bibasilar bandlike atelectasis TECHNICAL DOCUMENTATION: JOB ID: [id number]
--- NOTE | 2016-09-25 09:08 | PDOC PROGRESS REPORT ---
Subjective Progress Note for:: 09/25/16 Subjective:: Patient has no complaints. He has had no nausea or vomiting overnight. His pain is controlled. Physical Exam Vital Signs: Temp Pulse Resp BP Pulse Ox 98.5 F 88 16 127/89 H 99 09/25/16 00:42 09/25/16 00:42 09/25/16 00:42 09/25/16 00:42 09/25/16 00:42 Intake & Output 09/24/16 09/25/16 09/26/16 06:59 06:59 06:59 Intake Total 1093 2230 Output Total 1999 4850 Balance -907 -7130 Weight 57.5 kg 56.4 kg GENERAL: No acute distress HEENT: Conjunctiva clear, nonicteric, moist mucous membranes, no JVD, midline trachea RESPIRATORY: Clear to auscultation bilaterally, no wheezes, no rhonchi CARDIAC: Regular rate and rhythm, no murmurs/gallops/rubs ABDOMEN: Soft, nondistended, nontender, positive bowel sounds, no rebound, no guarding. Ileostomy present in right lower quadrant with liquid output EXTREMETIES: No edema, cyanosis, clubbing NEUROLOGIC: Alert, oriented to person/place/time, CN's grossly intact, no focal deficits SKIN: No rash, wounds. PICC line right arm PSYCH: Normal mood, normal affect Results Laboratory Results: 09/25/16 06:05 09/25/16 06:05 09/24/16 09/25/16 09/25/16 06:31 06:05 06:05 WBC 18.6 H RBC 3.65 L Hgb 8.4 L Hct 26.7 L MCV 73 L MCH 22.9 L MCHC 31.4 L RDW 15.3 H Plt Count 986 H Seg Neutrophils % 87.9 H Lymphocytes % 5.4 L Monocytes % 5.2 Eosinophils % 1.1 Basophils % 0.4 Absolute Neutrophils 16.4 H Absolute Lymphocytes 1.0 Absolute Monocytes 1.0 Absolute Eosinophils 0.2 Absolute Basophils 0.1 Sodium 137.5 Potassium 4.7 Chloride 95 L Carbon Dioxide 28 Anion Gap 15 BUN 15 Creatinine 0.52 Est GFR ( Amer) > 60 Est GFR (Non-Af Amer) > 60 Glucose 98 Calcium 9.4 Phosphorus 6.4 H Magnesium 1.6 Total Bilirubin 0.5 AST 60 H ALT 92 H Alkaline Phosphatase 223 H Total Protein 8.8 H Albumin 3.2 L Prealbumin 7.5 L Triglycerides 91 Impressions: KUB X-Ray 09/23/16 17:12 IMPRESSION: Tube placement as described. Chest X-Ray 09/25/16 07:39 IMPRESSION: Minimal bibasilar bandlike atelectasis Assessment & Plan - Diagnosis (1) Leukocytosis Qualifiers: Leukocytosis type: unspecified Qualified Code(s): D72.829 - Elevated white blood cell count, unspecified Is this a current diagnosis for this admission?: YesPlan: Patient is afebrile. Blood pressure stable. Possibly secondary to malignancy. Check blood cultures secondary to TPN. Chest x-ray negative. Check urinalysis and urine culture. (2) Small bowel obstruction Is this a current diagnosis for this admission?: YesPlan: Continue n.p.o. status except ice chips. Continue TPN and consult dietitian for recommendations. KUB on 09/23/2016 with nonspecific bowel gas pattern. Patient has good ileostomy output. 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 Patient is tentatively scheduled to have HIPEC at [facility] by Dr. Villa on . Dr. Villa can be contacted at [phone]. We will continue nutritional support and physical therapy pending transfer back to [facility] on 10/15/2016. (4) Anemia of chronic disease Is this a current diagnosis for this admission?: YesPlan: Secondary to malignancy. Monitor H&H for stability. (5) DVT prophylaxis Is this a current diagnosis for this admission?: Yes (6) Full code status Is this a current diagnosis for this admission?: Yes - Time Time Spent with patient: 25-34 minutes Anticipated discharge: [facility]
[2016-09-25] MEDS: FAT EMULSIONS 250 ML IV SCH (09:23)
[2016-09-25] MEDS ORDERED: ACETAMINOPHEN SOLN 325 MG/10.15 ML UDCUP NG PRN (13:56)
[2016-09-25] MEDS: AMINO ACIDS 5%/D25W 1,000 ML IV PRN (18:00)
[2016-09-25 19:10] LABS: APPEARANCE,URINE SLIGHTLY-CLOUDY; BILIRUBIN,URINE NEGATIVE (NEGATIVE); GLUCOSE, URINE NEGATIVE (NEGATIVE); KETONES,URINE NEGATIVE (NEGATIVE); LEUKOCYTE ESTERASE,URINE NEGATIVE (NEGATIVE); NITRITE,URINE NEGATIVE (NEGATIVE); PROTEIN,URINE 100 mg/dL (NEGATIVE); URINE SPECIFIC GRAVITY 1.025; UROBILINOGEN,URINE NEGATIVE mg/dL (<2.0)
[2016-09-26] MEDS: HYDROMORPHONE HCL INJ/PF 2 MG/ML AMPULE IV PRN ×7 (00:08→23:59)
[2016-09-26] MEDS: ONDANSETRON HCL INJ/PF 4 MG/2 ML SDV IV PRN ×2 (00:08→12:05)
[2016-09-26] MEDS: DIPHENHYDRAMINE HCL 50 MG/ML VIAL IV PRN ×3 (05:24→18:01)
[2016-09-26 06:20] LABS: HEMATOCRIT 27.1 % (37.9-51.0); HEMOGLOBIN 8.4 g/dL (13.5-17.0); HGB HCT DIFFERENCE -1.9; MEAN CORPUSCULAR HEMOGLOBIN 22.6 pg (27.0-33.4); MEAN CORPUSCULAR HGB CONC 31.2 g/dL (32.0-36.0); MEAN CORPUSCULAR VOLUME 72 fl (80-97); RED BLOOD COUNT 3.74 10^6/uL (4.35-5.55); RED CELL DISTRIBUTION WIDTH 15.7 % (11.5-14.0); WHITE BLOOD COUNT 20.1 10^3/uL (4.0-10.5)
[2016-09-26 06:32] LABS: ALANINE AMINOTRANSFERASE 90 U/L (21-72); ALBUMIN 3.3 g/dL (3.5-5.0); ALKALINE PHOSPHATASE 236 U/L (38-126); ANION GAP 14 (5-19); ASPARTATE AMINO TRANSFERASE 58 U/L (17-59); BILIRUBIN,DIRECT 0.5 mg/dL (0.0-0.4); BILIRUBIN,TOTAL 0.5 mg/dL (0.2-1.3); BLOOD UREA NITROGEN 15 mg/dL (7-20); CALCIUM 9.5 mg/dL (8.4-10.2); CARBON DIOXIDE 30 mmol/L (22-30); CHLORIDE 91 mmol/L (98-107); CREATININE RESULT 0.57 mg/dL (0.52-1.25); GLUCOSE 80 mg/dL (75-110); PHOSPHORUS 6.1 mg/dL (2.5-4.5); POTASSIUM 4.9 mmol/L (3.6-5.0); SODIUM 134.8 mmol/L (137-145); TOTAL PROTEIN 9.2 g/dL (6.3-8.2)
[2016-09-26 06:37] LABS: BASOPHILS % (MANUAL) 1 % (0-2); EOSINOPHILS % (MANUAL) 1 % (0-6); LYMPHOCYTES % (MANUAL) 5 % (13-45); TOTAL CELLS COUNTED 100
[2016-09-26 06:39] LABS: ANISOCYTOSIS 1+; POIKILOCYTOSIS 2+; PREALBUMIN 8.3 mg/dL (17.6-36.0); ROULEAUX 1+; TARGET CELLS 2+; TOXIC VACUOLATION PRESENT
[2016-09-26 06:40] LABS: HYPOCHROMASIA 1+; MICROCYTOSIS 1+
[2016-09-26] MEDS ORDERED: VANCOMYCIN HCL 0 MG in DEXTROSE 5%-WATER 250 ML IV NR (07:30)
[2016-09-26] MEDS: VANCOMYCIN HCL 1,000 MG in DEXTROSE 5%-WATER 250 ML IV SCH ×2 (09:27→18:01)
--- NOTE | 2016-09-26 13:57 | PDOC PROGRESS REPORT ---
Subjective Progress Note for:: 09/26/16 Subjective:: Patient has no complaints. He has had no nausea or vomiting overnight. His pain is controlled. Physical Exam Vital Signs: Temp Pulse Resp BP Pulse Ox 98.1 F 89 16 120/86 H 100 09/26/16 11:09 09/26/16 11:09 09/26/16 11:09 09/26/16 11:09 09/26/16 11:09 Intake & Output 09/25/16 09/26/16 09/27/16 06:59 06:59 06:59 Intake Total 2230 2063 Output Total 4850 650 Balance -2620 1413 Weight 56.4 kg 56.3 kg GENERAL: No acute distress HEENT: Conjunctiva clear, nonicteric, moist mucous membranes, no JVD, midline trachea RESPIRATORY: Clear to auscultation bilaterally, no wheezes, no rhonchi CARDIAC: Regular rate and rhythm, no murmurs/gallops/rubs ABDOMEN: Soft, nondistended, nontender, positive bowel sounds, no rebound, no guarding. Ileostomy present in right lower quadrant with liquid output EXTREMETIES: No edema, cyanosis, clubbing NEUROLOGIC: Alert, oriented to person/place/time, CN's grossly intact, no focal deficits SKIN: No rash, wounds. PICC line right arm PSYCH: Normal mood, normal affect Results Laboratory Results: 09/26/16 05:35 09/26/16 05:35 09/25/16 09/26/16 09/26/16 17:10 05:35 05:35 WBC 20.1 H RBC 3.74 L Hgb 8.4 L Hct 27.1 L MCV 72 L MCH 22.6 L MCHC 31.2 L RDW 15.7 H Plt Count 972 H Seg Neutrophils % Not Reportable Lymphocytes % Not Reportable Monocytes % Not Reportable Eosinophils % Not Reportable Basophils % Not Reportable Absolute Neutrophils Not Reportable Absolute Lymphocytes Not Reportable Absolute Monocytes Not Reportable Absolute Eosinophils Not Reportable Absolute Basophils Not Reportable Sodium 134.8 L Potassium 4.9 Chloride 91 L Carbon Dioxide 30 Anion Gap 14 BUN 15 Creatinine 0.57 Est GFR ( Amer) > 60 Est GFR (Non-Af Amer) > 60 Glucose 80 Calcium 9.5 Phosphorus 6.1 H Total Bilirubin 0.5 AST 58 ALT 90 H Alkaline Phosphatase 236 H Total Protein 9.2 H Albumin 3.3 L Prealbumin 8.3 L Urine Color YELLOW Urine Appearance SLIGHTLY-CLOUDY Urine pH 6.0 Ur Specific [place] 1.025 Urine Protein 100 H Urine Glucose (UA) NEGATIVE Urine Ketones NEGATIVE Urine Blood MODERATE H Urine Nitrite NEGATIVE Ur Leukocyte Esterase NEGATIVE Urine WBC (Auto) 8 Urine RBC (Auto) 85 Impressions: KUB X-Ray 09/23/16 17:12 IMPRESSION: Tube placement as described. Chest X-Ray 09/25/16 07:39 IMPRESSION: Minimal bibasilar bandlike atelectasis Assessment & Plan - Diagnosis (1) Gram-positive bacteremia Is this a current diagnosis for this admission?: YesPlan: Start IV vancomycin pending further identification and susceptibility. Follow- up blood cultures in 24 hours. If blood cultures remain positive I will discontinue PICC line. (2) Leukocytosis Qualifiers: Leukocytosis type: unspecified Qualified Code(s): D72.829 - Elevated white blood cell count, unspecified Is this a current diagnosis for this admission?: YesPlan: Patient is afebrile. Blood pressure stable. Possibly secondary to malignancy and/or bacteremia. Chest x-ray negative. Urine culture negative. Also consider sinusitis possibility given long-standing NG tube. (3) Small bowel obstruction Is this a current diagnosis for this admission?: YesPlan: Continue n.p.o. status except ice chips. Continue TPN. KUB on 09/23/2016 with nonspecific bowel gas pattern. Patient has good ileostomy output. 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 Patient is tentatively scheduled to have HIPEC at [facility] by Dr. Villa on . Dr. Villa can be contacted at [phone]. We will continue nutritional support and physical therapy pending transfer back to [facility] on 10/15/2016. (5) Anemia of chronic disease Is this a current diagnosis for this admission?: YesPlan: Secondary to malignancy. Monitor H&H for stability. (6) DVT prophylaxis Is this a current diagnosis for this admission?: Yes (7) Full code status Is this a current diagnosis for this admission?: Yes - Time Time Spent with patient: 35 or more minutes Anticipated discharge: [facility]
[2016-09-26] MEDS: AMINO ACIDS 5%/D25W 1,000 ML IV PRN (16:51)
[2016-09-27] MEDS: DIPHENHYDRAMINE HCL 50 MG/ML VIAL IV PRN ×4 (02:30→22:51)
[2016-09-27] MEDS: VANCOMYCIN HCL 1,000 MG in DEXTROSE 5%-WATER 250 ML IV SCH ×3 (02:30→17:38)
[2016-09-27 02:57] LABS: HEMATOCRIT 28.1 % (37.9-51.0); HEMOGLOBIN 8.8 g/dL (13.5-17.0); HGB HCT DIFFERENCE -1.7; MEAN CORPUSCULAR HEMOGLOBIN 22.7 pg (27.0-33.4); MEAN CORPUSCULAR HGB CONC 31.5 g/dL (32.0-36.0); MEAN CORPUSCULAR VOLUME 72 fl (80-97); RED BLOOD COUNT 3.89 10^6/uL (4.35-5.55); RED CELL DISTRIBUTION WIDTH 15.6 % (11.5-14.0); WHITE BLOOD COUNT 27.8 10^3/uL (4.0-10.5)
[2016-09-27 03:08] LABS: ALANINE AMINOTRANSFERASE 109 U/L (21-72); ALBUMIN 3.5 g/dL (3.5-5.0); ALKALINE PHOSPHATASE 250 U/L (38-126); ANION GAP 16 (5-19); ASPARTATE AMINO TRANSFERASE 91 U/L (17-59); BILIRUBIN,DIRECT 0.5 mg/dL (0.0-0.4); BILIRUBIN,TOTAL 0.6 mg/dL (0.2-1.3); BLOOD UREA NITROGEN 18 mg/dL (7-20); CALCIUM 9.9 mg/dL (8.4-10.2); CARBON DIOXIDE 27 mmol/L (22-30); CHLORIDE 90 mmol/L (98-107); CREATININE RESULT 0.64 mg/dL (0.52-1.25); GLUCOSE 110 mg/dL (75-110); PHOSPHORUS 6.6 mg/dL (2.5-4.5); POTASSIUM 5.1 mmol/L (3.6-5.0); SODIUM 132.9 mmol/L (137-145); TOTAL PROTEIN 9.6 g/dL (6.3-8.2)
[2016-09-27 03:15] LABS: PREALBUMIN 8.6 mg/dL (17.6-36.0)
[2016-09-27 03:16] LABS: BASOPHILS % (MANUAL) 0 % (0-2); EOSINOPHILS % (MANUAL) 2 % (0-6); LYMPHOCYTES % (MANUAL) 5 % (13-45); TOTAL CELLS COUNTED 100
[2016-09-27 03:20] LABS: HYPOCHROMASIA 2+; MICROCYTOSIS 1+; POLYCHROMASIA SLIGHT; TOXIC GRANULATION 1+; TOXIC VACUOLATION PRESENT
[2016-09-27 03:21] LABS: ACANTHOCYTES SLIGHT; ANISOCYTOSIS 1+; OVALOCYTES 1+; POIKILOCYTOSIS 3+; TARGET CELLS 2+
[2016-09-27] MEDS: HYDROMORPHONE HCL INJ/PF 2 MG/ML AMPULE IV PRN ×5 (04:37→20:45)
[2016-09-27] MEDS ORDERED: PIPERACILLIN SODIUM/TAZOBACTAM 3.375 GM in NORMAL SALINE 100 ML IV ONE ×2 (08:00→10:00)
[2016-09-27] MEDS: ONDANSETRON HCL INJ/PF 4 MG/2 ML SDV IV PRN ×3 (08:54→22:51)
--- NOTE | 2016-09-27 10:31 | RADIOLOGY REPORT (SQ) ---
EXAM DESCRIPTION: CT FACIAL AREA WITHOUT COMPLETED DATE/TIME: 09/27/2016 9:43 am REASON FOR STUDY: fever, prolonged NGT COMPARISON: None. TECHNIQUE: Noncontrasted images through the facial bones and orbits windowed for bone and soft tissu e. Additional coronal and sagittal reconstructed images reviewed. All images stored on PACS. All CT scanners at this facility use dose modulation, iterative reconstruction, and/or weight based d osing when appropriate to reduce radiation dose to as low as reasonably achievable (ALARA). [facility]: Dose Right [facility]: CareDose [facility]: Dose Right [facility]: Teradose 4D [facility]: [employer] RADIATION DOSE: Up-to-date CT equipment and radiation dose reduction techniques were employed. CTDIv ol: 30.4 mGy. DLP: 646 mGy-cm. mGy. LIMITATIONS: None. FINDINGS: FACIAL BONES: No fracture or bone lesion. ORBITS: Intact. No fracture. Symmetric intact globes and retroorbital soft tissues. PARANASAL SINUSES: Clear. No significant mucosal thickening, mass or fluid. No nasal polyps. Maxill cayden sinus outlets are patent. SOFT TISSUES: No mass or edema. INFERIOR BRAIN: Limited view. No acute findings. OTHER: NG tube is identified. IMPRESSION: NG tube is identified. No other significant findings. TECHNICAL DOCUMENTATION: JOB ID: [id number] Quality ID # [id number]: Final reports with documentation of one or more dose reduction techniques (e.g., Au tomated exposure control, adjustment of the mA and/or kV according to patient size, use of iterative reconstruction technique) 2010 [employer]- All Rights Reserved
--- NOTE | 2016-09-27 10:36 | RADIOLOGY REPORT (SQ) ---
EXAM DESCRIPTION: CT CHEST WITH COMPLETED DATE/TIME: 09/27/2016 9:48 am REASON FOR STUDY: fever, cough COMPARISON: Chest x-ray dated 09/25/2016 TECHNIQUE: CT scan of the chest performed using helical scanning technique with dynamic intravenous contrast injection. Images reviewed with lung, soft tissue and bone windows. Reconstructed coronal and sagittal MPR images reviewed. All images stored on PACS. All CT scanners at this facility use dose modulation, iterative reconstruction, and/or weight based d osing when appropriate to reduce radiation dose to as low as reasonably achievable (ALARA). [facility]: Dose Right [facility]: CareDose [facility]: Dose Right [facility]: Teradose 4D [facility]: [employer] CONTRAST TYPE AND DOSE: contrast/concentration: Isovue 370.00 mg/ml; Total Contrast Delivered: 80.0 ml; Total Saline Delivered: 65.1 ml RENAL FUNCTION: None required. The patient is less than 50 years old. RADIATION DOSE: Up-to-date CT equipment and radiation dose reduction techniques were employed. CTDIv ol: 4.9 - 5.3 mGy. DLP: 626 mGy-cm. . LIMITATIONS: None. FINDINGS: LUNGS AND PLEURA: There are minimal linear densities in the left lung base which could rep resent atelectatic changes or minimal pneumonic infiltrate. Remaining lung hanson are clear. No ple ural effusions are identified. No pneumothorax is seen. HILAR AND MEDIASTINAL STRUCTURES: No identified masses or abnormal nodes. HEART AND VASCULAR STRUCTURES: No aneurysm or dissection. No central pulmonary emboli. No pericardi al effusion. HARDWARE: NG tube is seen in course to the abdomen. UPPER ABDOMEN: See results under abdominal CT scan THYROID AND OTHER SOFT TISSUES: No masses. No adenopathy. BONES: No significant finding. OTHER: No other significant finding. IMPRESSION: Minimal linear densities in the left lung base which could represent atelectatic changes or minimal pneumonic infiltrate. Other findings as noted above TECHNICAL DOCUMENTATION: JOB ID: [id number] Quality ID # [id number]: Final reports with documentation of one or more dose reduction techniques (e.g., Au tomated exposure control, adjustment of the mA and/or kV according to patient size, use of iterative reconstruction technique) 2010 [employer]- All Rights Reserved
--- NOTE | 2016-09-27 10:47 | RADIOLOGY REPORT (SQ) ---
EXAM DESCRIPTION: CT ABD/PELVIS WITH IV ONLY COMPLETED DATE/TIME: 09/27/2016 9:48 am REASON FOR STUDY: SOB, FEVER COMPARISON: 08/16/2016 TECHNIQUE: CT scan of the abdomen and pelvis performed using helical scanning technique with dynamic intravenous contrast injection. No oral contrast. Images reviewed with lung, soft tissue, and bone windows. Reconstructed coronal and sagittal MPR images reviewed. Delayed images for evaluation of the urinary system also acquired. All images stored on PACS. All CT scanners at this facility use dose modulation, iterative reconstruction, and/or weight based d osing when appropriate to reduce radiation dose to as low as reasonably achievable (ALARA). [facility]: Dose Right [facility]: CareDose [facility]: Dose Right [facility]: Teradose 4D [facility]: [employer] CONTRAST TYPE AND DOSE: 80 mL Isovue 370 RENAL FUNCTION: None required. The patient is less than 50 years old. RADIATION DOSE: . LIMITATIONS: None. FINDINGS: LOWER CHEST: See results under chest CT scan LIVER: Normal size. No masses. No dilated ducts. SPLEEN: Status post splenectomy PANCREAS: No masses. No significant calcifications. No adjacent inflammation or peripancreatic fluid collections. Pancreatic duct not dilated. GALLBLADDER: Status post cholecystectomy ADRENAL GLANDS: No significant masses or asymmetry. RIGHT KIDNEY AND URETER: No solid masses. No significant calcifications. No hydronephrosis or hyd roureter. LEFT KIDNEY AND URETER: No solid masses. No significant calcifications. No hydronephrosis or hydr oureter. AORTA AND VESSELS: No aneurysm. No dissection. Renal arteries, SMA, celiac without stenosis. RETROPERITONEUM: No retroperitoneal adenopathy, hemorrhage or masses. BOWEL AND PERITONEAL CAVITY: Right lower quadrant ostomy is again identified. Multiple thick walled fluid collections are identified which were present on the previous study and do not appear to repres ent distended bowel loops. Again the lack of oral contrast makes exact delineation somewhat difficul t. There are fluid and air distended small bowel loops consistent with a small bowel obstruction APPENDIX: Status post appendectomy. PELVIS: Pelvic fat and soft tissue planes are somewhat difficult to delineate. Calcific densities ar e identified in the pelvis which may be associated with a mass. ABDOMINAL WALL: No masses. No hernias. BONES: No significant or acute findings. OTHER: NG tube is identified in the stomach IMPRESSION: Postsurgical changes as noted above. Multiple thick-walled fluid collections are identi fied which were present on the previous study and do not appear to represent distended bowel loops. Again the lack of oral contrast makes exact delineation somewhat difficult. There are air and fluid distended small bowel loops consistent with a small bowel obstruction. Clinical correlation is recom mended. Other findings as noted above TECHNICAL DOCUMENTATION: JOB ID: [id number] Quality ID # [id number]: Final reports with documentation of one or more dose reduction techniques (e.g., Au tomated exposure control, adjustment of the mA and/or kV according to patient size, use of iterative reconstruction technique) 2010 [employer]- All Rights Reserved
[2016-09-27] MEDS ORDERED: PIPERACILLIN SODIUM/TAZOBACTAM 3.375 GM in NORMAL SALINE 100 ML IV SCH (12:00)
--- NOTE | 2016-09-27 12:19 | PDOC PROGRESS REPORT ---
Subjective Progress Note for:: 09/27/16 Subjective:: Patient has developed fevers overnight. Continues to have a slight cough. No shortness of breath. No vomiting. Physical Exam Vital Signs: Temp Pulse Resp BP Pulse Ox 99.2 F 92 17 115/87 H 100 09/27/16 07:40 09/27/16 07:40 09/27/16 07:40 09/27/16 07:40 09/27/16 07:40 Intake & Output 09/26/16 09/27/16 09/28/16 06:59 06:59 06:59 Intake Total 2063 2946 Output Total 650 1100 Balance 1413 1846 Weight 56.3 kg 56.3 kg GENERAL: No acute distress HEENT: Conjunctiva clear, nonicteric, moist mucous membranes, no JVD, midline trachea RESPIRATORY: Clear to auscultation bilaterally, no wheezes, no rhonchi CARDIAC: Regular rate and rhythm, no murmurs/gallops/rubs ABDOMEN: Soft, nondistended, nontender, positive bowel sounds, no rebound, no guarding. Ileostomy present in right lower quadrant with liquid output EXTREMETIES: No edema, cyanosis, clubbing NEUROLOGIC: Alert, oriented to person/place/time, CN's grossly intact, no focal deficits SKIN: No rash, wounds. PICC line right arm PSYCH: Normal mood, normal affect Results Laboratory Results: 09/27/16 02:30 09/27/16 02:30 09/27/16 09/27/16 09/27/16 02:30 02:30 02:30 WBC 27.8 H RBC 3.89 L Hgb 8.8 L Hct 28.1 L MCV 72 L MCH 22.7 L MCHC 31.5 L RDW 15.6 H Plt Count 978 H Seg Neutrophils % Not Reportable Lymphocytes % Not Reportable Monocytes % Not Reportable Eosinophils % Not Reportable Basophils % Not Reportable Absolute Neutrophils Not Reportable Absolute Lymphocytes Not Reportable Absolute Monocytes Not Reportable Absolute Eosinophils Not Reportable Absolute Basophils Not Reportable Sodium Cancelled 132.9 L Potassium Cancelled 5.1 H Chloride Cancelled 90 L Carbon Dioxide Cancelled 27 Anion Gap Cancelled 16 BUN Cancelled 18 Creatinine Cancelled 0.64 Est GFR ( Amer) Cancelled > 60 Est GFR (Non-Af Amer) Cancelled > 60 Glucose Cancelled 110 Calcium Cancelled 9.9 Phosphorus 6.6 H Total Bilirubin 0.6 AST 91 H ALT 109 H Alkaline Phosphatase 250 H Total Protein 9.6 H Albumin 3.5 Prealbumin 8.6 L 09/25/16 17:10 Clean Catch Midstream Urine Culture - Final NO GROWTH 2 DAYS Impressions: KUB X-Ray 09/23/16 17:12 IMPRESSION: Tube placement as described. Chest X-Ray 09/25/16 07:39 IMPRESSION: Minimal bibasilar bandlike atelectasis Abdomen/Pelvis CT 09/27/16 00:00 IMPRESSION: Postsurgical changes as noted above. Multiple thick-walled fluid collections are identified which were present on the previous study and do not appear to represent distended bowel loops. Again the lack of oral contrast makes exact delineation somewhat difficult. There are air and fluid distended small bowel loops consistent with a small bowel obstruction. Clinical correlation is recommended. Other findings as noted above Chest CT 09/27/16 00:00 IMPRESSION: Minimal linear densities in the left lung base which could represent atelectatic changes or minimal pneumonic infiltrate. Other findings as noted above Facial Bones CT 09/27/16 00:00 IMPRESSION: NG tube is identified. No other significant findings. Assessment & Plan - Diagnosis (1) SIRS (systemic inflammatory response syndrome) Is this a current diagnosis for this admission?: YesPlan: Blood pressure stable. Secondary to malignancy, pneumonia and bacteremia. (2) Pneumonia Qualifiers: Pneumonia type: due to unspecified organism Laterality: left Lung location: lower lobe of lung Qualified Code(s): J18.1 - Lobar pneumonia, unspecified organism Is this a current diagnosis for this admission?: YesPlan: CT scan of chest shows left lung base airspace disease. Likely bacterial. High probability of gram-negative organism. Start IV Zosyn, IV Levaquin. Check sputum culture. (3) Gram-positive bacteremia Is this a current diagnosis for this admission?: YesPlan: Continue IV vancomycin pending further identification and susceptibility. Follow-up blood cultures 09/27/2016 pending. If blood cultures remain positive I will discontinue PICC line. (4) Small bowel obstruction Is this a current diagnosis for this admission?: YesPlan: Continue n.p.o. status except ice chips. Continue TPN. KUB on 09/23/2016 with nonspecific bowel gas pattern. Patient has good ileostomy output. 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 Patient is tentatively scheduled to have HIPEC at [facility] by Dr. Villa on . Dr. Vilal can be contacted at [phone]. We will continue nutritional support and physical therapy pending transfer back to [facility] on 10/15/2016. (6) Anemia of chronic disease Is this a current diagnosis for this admission?: YesPlan: Secondary to malignancy. Monitor H&H for stability. (7) DVT prophylaxis Is this a current diagnosis for this admission?: Yes (8) Full code status Is this a current diagnosis for this admission?: Yes - Time Time Spent with patient: 35 or more minutes
[2016-09-27] MEDS: LEVOFLOXACIN 750 MG/D5W RTU 150 ML IV SCH (14:04)
[2016-09-27] MEDS: AMINO ACIDS 5%/D25W 1,000 ML IV PRN (14:05)
[2016-09-27] MEDS: PIPERACILLIN SODIUM/TAZOBACTAM 3.375 GM in NORMAL SALINE 100 ML IV SCH ×2 (15:10→20:45)
[2016-09-28] MEDS: HYDROMORPHONE HCL INJ/PF 2 MG/ML AMPULE IV PRN ×6 (00:51→22:05)
[2016-09-28] MEDS: VANCOMYCIN HCL 1,000 MG in DEXTROSE 5%-WATER 250 ML IV SCH ×3 (01:38→17:14)
[2016-09-28] MEDS: PIPERACILLIN SODIUM/TAZOBACTAM 3.375 GM in NORMAL SALINE 100 ML IV SCH ×4 (03:50→21:14)
[2016-09-28] MEDS: ONDANSETRON HCL INJ/PF 4 MG/2 ML SDV IV PRN ×3 (05:21→19:28)
[2016-09-28] MEDS: DIPHENHYDRAMINE HCL 50 MG/ML VIAL IV PRN ×3 (05:21→19:28)
[2016-09-28 06:15] LABS: ANION GAP 13 (5-19); BLOOD UREA NITROGEN 14 mg/dL (7-20); CALCIUM 9.6 mg/dL (8.4-10.2); CARBON DIOXIDE 28 mmol/L (22-30); CHLORIDE 89 mmol/L (98-107); CREATININE RESULT 0.72 mg/dL (0.52-1.25); GLUCOSE 77 mg/dL (75-110); POTASSIUM 5.2 mmol/L (3.6-5.0); SODIUM 130.4 mmol/L (137-145)
[2016-09-28 06:16] LABS: HEMATOCRIT 25.9 % (37.9-51.0); HEMOGLOBIN 8.1 g/dL (13.5-17.0); HGB HCT DIFFERENCE -1.6; MEAN CORPUSCULAR HEMOGLOBIN 22.2 pg (27.0-33.4); MEAN CORPUSCULAR HGB CONC 31.3 g/dL (32.0-36.0); MEAN CORPUSCULAR VOLUME 71 fl (80-97); RED BLOOD COUNT 3.65 10^6/uL (4.35-5.55); RED CELL DISTRIBUTION WIDTH 15.5 % (11.5-14.0); WHITE BLOOD COUNT 21.9 10^3/uL (4.0-10.5)
[2016-09-28 06:20] LABS: BASOPHILS % (MANUAL) 0 % (0-2); EOSINOPHILS % (MANUAL) 1 % (0-6); LYMPHOCYTES % (MANUAL) 6 % (13-45); TOTAL CELLS COUNTED 100
[2016-09-28 06:21] LABS: TOXIC VACUOLATION PRESENT
[2016-09-28 06:23] LABS: POLYCHROMASIA SLIGHT
[2016-09-28 06:24] LABS: ANISOCYTOSIS SLIGHT; HYPOCHROMASIA 2+; MICROCYTOSIS 1+; OVALOCYTES 1+; POIKILOCYTOSIS 3+; TARGET CELLS 2+
[2016-09-28] MEDS: LEVOFLOXACIN 750 MG/D5W RTU 150 ML IV SCH (13:39)
[2016-09-28] MEDS: AMINO ACIDS 5%/D25W 1,000 ML IV PRN (14:33)
--- NOTE | 2016-09-28 16:21 | PDOC PROGRESS REPORT ---
Subjective Progress Note for:: 09/28/16 Subjective:: Patient has had no fever since starting broad-spectrum antibiotic yesterday. White blood count is coming down. Pain is controlled. No vomiting. Physical Exam Vital Signs: Temp Pulse Resp BP Pulse Ox 97.9 F 83 16 113/77 99 09/28/16 11:31 09/28/16 11:31 09/28/16 11:31 09/28/16 11:31 09/28/16 11:31 Intake & Output 09/27/16 09/28/16 09/29/16 06:59 06:59 06:59 Intake Total 2946 2374 0 Output Total 1100 4300 1400 Balance 1846 -1926 -1400 Weight 56.3 kg 57.2 kg GENERAL: No acute distress HEENT: Conjunctiva clear, nonicteric, moist mucous membranes, no JVD, midline trachea RESPIRATORY: Clear to auscultation bilaterally, no wheezes, no rhonchi CARDIAC: Regular rate and rhythm, no murmurs/gallops/rubs ABDOMEN: Soft, nondistended, nontender, positive bowel sounds, no rebound, no guarding. Ileostomy present in right lower quadrant with liquid output EXTREMETIES: No edema, cyanosis, clubbing NEUROLOGIC: Alert, oriented to person/place/time, CN's grossly intact, no focal deficits SKIN: No rash, wounds. PICC line right arm PSYCH: Normal mood, normal affect Results Laboratory Results: 09/28/16 05:20 09/28/16 05:20 09/28/16 09/28/16 05:20 05:20 WBC 21.9 H RBC 3.65 L Hgb 8.1 L Hct 25.9 L MCV 71 L MCH 22.2 L MCHC 31.3 L RDW 15.5 H Plt Count 990 H Seg Neutrophils % Not Reportable Lymphocytes % Not Reportable Monocytes % Not Reportable Eosinophils % Not Reportable Basophils % Not Reportable Absolute Neutrophils Not Reportable Absolute Lymphocytes Not Reportable Absolute Monocytes Not Reportable Absolute Eosinophils Not Reportable Absolute Basophils Not Reportable Sodium 130.4 L Potassium 5.2 H Chloride 89 L Carbon Dioxide 28 Anion Gap 13 BUN 14 Creatinine 0.72 Est GFR ( Amer) > 60 Est GFR (Non-Af Amer) > 60 Glucose 77 Calcium 9.6 09/25/16 09:09 Blood Blood Culture - Final Mrsa (Meth Resis Staph Aureus) Impressions: KUB X-Ray 09/23/16 17:12 IMPRESSION: Tube placement as described. Chest X-Ray 09/25/16 07:39 IMPRESSION: Minimal bibasilar bandlike atelectasis Abdomen/Pelvis CT 09/27/16 00:00 IMPRESSION: Postsurgical changes as noted above. Multiple thick-walled fluid collections are identified which were present on the previous study and do not appear to represent distended bowel loops. Again the lack of oral contrast makes exact delineation somewhat difficult. There are air and fluid distended small bowel loops consistent with a small bowel obstruction. Clinical correlation is recommended. Other findings as noted above Chest CT 09/27/16 00:00 IMPRESSION: Minimal linear densities in the left lung base which could represent atelectatic changes or minimal pneumonic infiltrate. Other findings as noted above Facial Bones CT 09/27/16 00:00 IMPRESSION: NG tube is identified. No other significant findings. Assessment & Plan - Diagnosis (1) SIRS (systemic inflammatory response syndrome) Is this a current diagnosis for this admission?: YesPlan: Blood pressure stable. Secondary to malignancy, pneumonia and bacteremia. Patient is now afebrile. White blood count is trending down with initiation of antibiotics. (2) Pneumonia Qualifiers: Pneumonia type: due to unspecified organism Laterality: left Lung location: lower lobe of lung Qualified Code(s): J18.1 - Lobar pneumonia, unspecified organism Is this a current diagnosis for this admission?: YesPlan: CT scan of chest shows left lung base airspace disease. Likely bacterial. High probability of gram-negative organism. Continue IV Zosyn, IV Levaquin #2. (3) Gram-positive bacteremia Is this a current diagnosis for this admission?: YesPlan: Blood cultures from 09/25/2016 growing MRSA. Continue IV vancomycin day #3. Follow-up blood cultures 09/27/2016 with no growth. (4) Small bowel obstruction Is this a current diagnosis for this admission?: YesPlan: Continue n.p.o. status except ice chips. Continue TPN. KUB on 09/23/2016 with nonspecific bowel gas pattern. Patient has good ileostomy output. 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 Patient is tentatively scheduled to have HIPEC at [facility] by Dr. Villa on . Dr. Villa can be contacted at [phone]. We will continue nutritional support and physical therapy pending transfer back to [facility] on 10/15/2016. (6) Anemia of chronic disease Is this a current diagnosis for this admission?: Yes (7) DVT prophylaxis Is this a current diagnosis for this admission?: Yes (8) Full code status Is this a current diagnosis for this admission?: Yes - Time Time Spent with patient: 35 or more minutes Anticipated discharge: [facility]
[2016-09-29] MEDS: DIPHENHYDRAMINE HCL 50 MG/ML VIAL IV PRN ×4 (01:53→22:56)
[2016-09-29] MEDS: HYDROMORPHONE HCL INJ/PF 2 MG/ML AMPULE IV PRN ×6 (01:53→21:30)
[2016-09-29] MEDS: ONDANSETRON HCL INJ/PF 4 MG/2 ML SDV IV PRN (01:53)
[2016-09-29] MEDS: VANCOMYCIN HCL 1,000 MG in DEXTROSE 5%-WATER 250 ML IV SCH ×3 (01:53→17:54)
[2016-09-29] MEDS: PIPERACILLIN SODIUM/TAZOBACTAM 3.375 GM in NORMAL SALINE 100 ML IV SCH ×4 (03:20→21:30)
[2016-09-29 05:09] LABS: ABSOLUTE EOSINOPHILS # (AUTO) 0.3 10^3/uL (0.0-0.6); ABSOLUTE LYMPHOCYTES (AUTO) 1.3 10^3/uL (0.5-4.7); ABSOLUTE MONOCYTES (AUTO) 1.2 10^3/uL (0.1-1.4); ABSOLUTE NEUT (AUTO) 16.8 10^3/uL (1.7-8.2); BASOPHILS % (AUTO) 0.2 % (0-2); EOSINOPHILS % (AUTO) 1.4 % (0-6); HEMOGLOBIN 8.2 g/dL (13.5-17.0); HGB HCT DIFFERENCE -1.4; LYMPHOCYTES % (AUTO) 6.5 % (13-45); MEAN CORPUSCULAR HEMOGLOBIN 22.7 pg (27.0-33.4); MEAN CORPUSCULAR HGB CONC 31.6 g/dL (32.0-36.0); MEAN CORPUSCULAR VOLUME 72 fl (80-97); MONOCYTES % (AUTO) 6.2 % (3-13); RED BLOOD COUNT 3.63 10^6/uL (4.35-5.55); RED CELL DISTRIBUTION WIDTH 15.4 % (11.5-14.0); SEGMENTED NEUTROPHILS % (AUTO) 85.7 % (42-78); WHITE BLOOD COUNT 19.6 10^3/uL (4.0-10.5)
[2016-09-29 05:12] LABS: ANION GAP 12 (5-19); BLOOD UREA NITROGEN 18 mg/dL (7-20); CALCIUM 9.7 mg/dL (8.4-10.2); CARBON DIOXIDE 27 mmol/L (22-30); CHLORIDE 93 mmol/L (98-107); CREATININE RESULT 1.01 mg/dL (0.52-1.25); GLUCOSE 82 mg/dL (75-110); MAGNESIUM 1.9 mg/dL (1.6-2.3); POTASSIUM 4.8 mmol/L (3.6-5.0); SODIUM 132.3 mmol/L (137-145)
[2016-09-29 06:13] LABS: PROTHROMBIN TIME 18.1 SEC (11.4-15.4)
[2016-09-29] MEDS ORDERED: HYDROMORPHONE HCL INJ/PF 2 MG/ML AMPULE IV ONE (09:15)
[2016-09-29] MEDS ORDERED: HYDROMORPHONE HCL INJ/PF 2 MG/ML AMPULE ONE (09:21)
[2016-09-29] MEDS: FAT EMULSIONS 250 ML IV SCH (10:22)
--- NOTE | 2016-09-29 10:50 | PDOC PROGRESS REPORT ---
Subjective Progress Note for:: 09/29/16 Subjective:: Patient has had no fever since starting broad-spectrum antibiotic. White blood count is coming down. Pain is controlled. No vomiting. Physical Exam Vital Signs: Temp Pulse Resp BP Pulse Ox 98.3 F 85 16 108/64 100 09/29/16 08:14 09/29/16 08:14 09/29/16 08:14 09/29/16 08:14 09/29/16 08:14 Intake & Output 09/28/16 09/29/16 09/30/16 06:59 06:59 06:59 Intake Total 2374 3862 Output Total 4300 3400 Balance -1926 462 Weight 57.2 kg 57.4 kg GENERAL: No acute distress HEENT: Conjunctiva clear, nonicteric, moist mucous membranes, no JVD, midline trachea RESPIRATORY: Clear to auscultation bilaterally, no wheezes, no rhonchi CARDIAC: Regular rate and rhythm, no murmurs/gallops/rubs ABDOMEN: Soft, nondistended, nontender, positive bowel sounds, no rebound, no guarding. Ileostomy present in right lower quadrant with liquid output EXTREMETIES: No edema, cyanosis, clubbing NEUROLOGIC: Alert, oriented to person/place/time, CN's grossly intact, no focal deficits SKIN: No rash, wounds. PICC line right arm PSYCH: Normal mood, normal affect Results Laboratory Results: 09/29/16 04:45 09/29/16 04:45 09/29/16 09/29/16 09/29/16 04:45 04:45 04:45 WBC 19.6 H RBC 3.63 L Hgb 8.2 L Hct 26.0 L MCV 72 L MCH 22.7 L MCHC 31.6 L RDW 15.4 H Plt Count 985 H Seg Neutrophils % 85.7 H Lymphocytes % 6.5 L Monocytes % 6.2 Eosinophils % 1.4 Basophils % 0.2 Absolute Neutrophils 16.8 H Absolute Lymphocytes 1.3 Absolute Monocytes 1.2 Absolute Eosinophils 0.3 Absolute Basophils 0.0 Sodium 132.3 L Potassium 4.8 Chloride 93 L Carbon Dioxide 27 Anion Gap 12 BUN 18 Creatinine 1.01 Est GFR ( Amer) > 60 Est GFR (Non-Af Amer) > 60 Glucose 82 Calcium 9.7 Magnesium 1.9 Triglycerides 91 09/25/16 09:09 Blood Blood Culture - Final Mrsa (Meth Resis Staph Aureus) Impressions: KUB X-Ray 09/23/16 17:12 IMPRESSION: Tube placement as described. Chest X-Ray 09/25/16 07:39 IMPRESSION: Minimal bibasilar bandlike atelectasis Abdomen/Pelvis CT 09/27/16 00:00 IMPRESSION: Postsurgical changes as noted above. Multiple thick-walled fluid collections are identified which were present on the previous study and do not appear to represent distended bowel loops. Again the lack of oral contrast makes exact delineation somewhat difficult. There are air and fluid distended small bowel loops consistent with a small bowel obstruction. Clinical correlation is recommended. Other findings as noted above Chest CT 09/27/16 00:00 IMPRESSION: Minimal linear densities in the left lung base which could represent atelectatic changes or minimal pneumonic infiltrate. Other findings as noted above Facial Bones CT 09/27/16 00:00 IMPRESSION: NG tube is identified. No other significant findings. Assessment & Plan - Diagnosis (1) SIRS (systemic inflammatory response syndrome) Is this a current diagnosis for this admission?: YesPlan: Blood pressure stable. Secondary to malignancy, pneumonia and bacteremia. Patient is now afebrile. White blood count is trending down with initiation of antibiotics. (2) Pneumonia Qualifiers: Pneumonia type: due to unspecified organism Laterality: left Lung location: lower lobe of lung Qualified Code(s): J18.1 - Lobar pneumonia, unspecified organism Is this a current diagnosis for this admission?: YesPlan: Cough and fever have resolved since initiation of antibiotics. CT scan of chest shows left lung base airspace disease. Likely bacterial. High probability of gram-negative organism. Continue IV Zosyn, IV Levaquin #3. We will have to complete full course of IV antibiotic as patient is currently n.p.o. secondary to small bowel obstruction. (3) Gram-positive bacteremia Is this a current diagnosis for this admission?: YesPlan: Blood cultures from 09/25/2016 growing MRSA. Continue IV vancomycin day #05/30. Follow-up blood cultures 09/27/2016 with no growth. (4) Small bowel obstruction Is this a current diagnosis for this admission?: YesPlan: Continue n.p.o. status except ice chips. Continue TPN and continue to advance to goal rate of 75ml/hour. KUB on 09/23/2016 with nonspecific bowel gas pattern. Patient has good ileostomy output. He has no further vomiting. Clinically it would seem that his bowel obstruction has resolved. His CT scan unfortunately could not confirm this as patient did not want to use oral contrast. He is inquiring about whether or not he can take oral intake. I advised him that if he would allow us to perform CT scan with oral contrast to confirm resolution of small bowel obstruction we could consider initiation of some oral intake. 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 Patient is tentatively scheduled to have HIPEC at [facility] by Dr. Villa on . Dr. Villa can be contacted at [phone]. We will continue nutritional support and physical therapy pending transfer back to [facility] on 10/15/2016. (6) Anemia of chronic disease Is this a current diagnosis for this admission?: Yes (7) DVT prophylaxis Is this a current diagnosis for this admission?: Yes (8) Full code status Is this a current diagnosis for this admission?: Yes - Time Time Spent with patient: 25-34 minutes
[2016-09-29] MEDS: AMINO ACIDS 5%/D25W 1,000 ML IV PRN (11:05)
[2016-09-29] MEDS: LEVOFLOXACIN 750 MG/D5W RTU 150 ML IV SCH (13:46)
[2016-09-30] MEDS: HYDROMORPHONE HCL INJ/PF 2 MG/ML AMPULE IV PRN ×6 (01:43→22:18)
[2016-09-30] MEDS: VANCOMYCIN HCL 1,000 MG in DEXTROSE 5%-WATER 250 ML IV SCH ×3 (01:43→17:56)
[2016-09-30] MEDS: AMINO ACIDS 5%/D25W 1,000 ML IV PRN ×2 (03:37→23:24)
[2016-09-30] MEDS: PIPERACILLIN SODIUM/TAZOBACTAM 3.375 GM in NORMAL SALINE 100 ML IV SCH ×4 (03:41→22:18)
[2016-09-30] MEDS: DIPHENHYDRAMINE HCL 50 MG/ML VIAL IV PRN ×3 (05:10→18:08)
[2016-09-30 06:49] LABS: HGB HCT DIFFERENCE -1.4
[2016-09-30 06:57] LABS: HEMATOCRIT 23.3 % (37.9-51.0); MEAN CORPUSCULAR HEMOGLOBIN 22.3 pg (27.0-33.4); MEAN CORPUSCULAR HGB CONC 31.4 g/dL (32.0-36.0); MEAN CORPUSCULAR VOLUME 71 fl (80-97); RED BLOOD COUNT 3.28 10^6/uL (4.35-5.55); RED CELL DISTRIBUTION WIDTH 15.5 % (11.5-14.0); WHITE BLOOD COUNT 20.6 10^3/uL (4.0-10.5)
[2016-09-30 07:01] LABS: ALANINE AMINOTRANSFERASE 125 U/L (21-72); ALBUMIN 2.9 g/dL (3.5-5.0); ALKALINE PHOSPHATASE 234 U/L (38-126); ANION GAP 11 (5-19); ASPARTATE AMINO TRANSFERASE 72 U/L (17-59); BILIRUBIN,DIRECT 0.5 mg/dL (0.0-0.4); BILIRUBIN,TOTAL 0.5 mg/dL (0.2-1.3); BLOOD UREA NITROGEN 15 mg/dL (7-20); CALCIUM 9.8 mg/dL (8.4-10.2); CARBON DIOXIDE 28 mmol/L (22-30); CHLORIDE 95 mmol/L (98-107); CREATININE RESULT 0.94 mg/dL (0.52-1.25); GLUCOSE 81 mg/dL (75-110); MAGNESIUM 1.7 mg/dL (1.6-2.3); PHOSPHORUS 5.3 mg/dL (2.5-4.5); POTASSIUM 4.6 mmol/L (3.6-5.0); SODIUM 133.6 mmol/L (137-145); TOTAL PROTEIN 8.1 g/dL (6.3-8.2)
[2016-09-30 07:18] LABS: HEMOGLOBIN 7.3 g/dL (13.5-17.0)
[2016-09-30 07:46] LABS: ANISOCYTOSIS SLIGHT; BASOPHILS % (MANUAL) 1 % (0-2); EOSINOPHILS % (MANUAL) 1 % (0-6); LYMPHOCYTES % (MANUAL) 10 % (13-45); MICROCYTOSIS 1+; TARGET CELLS 4+; TOTAL CELLS COUNTED 100; TOXIC GRANULATION 1+
[2016-09-30 07:47] LABS: ROULEAUX 1+
[2016-09-30] MEDS: LEVOFLOXACIN 750 MG/D5W RTU 150 ML IV SCH (14:10)
--- NOTE | 2016-09-30 17:43 | PDOC PROGRESS REPORT ---
Subjective Progress Note for:: 09/30/16 Subjective:: Patient states that his abdominal pain is at its usual level. He says that he is just resting. He tells me that the plan is to increase his TPN to goal. We did go over whether or not he would like to have a contrasted CAT scan to evaluate for small bowel obstruction so that he could potentially eat. The patient still declines having that done. We also discussed at length his risk for blood clots considering that he is not up as much as he usually would be and he has a history of underlying cancer and elevated platelets of greater than 1000. He denies any chest pain or shortness of breath. Physical Exam Vital Signs: Temp Pulse Resp BP Pulse Ox 98.3 F 81 15 108/80 100 09/30/16 16:00 09/30/16 16:00 09/30/16 16:00 09/30/16 16:00 09/30/16 16:00 Intake & Output 09/29/16 09/30/16 10/01/16 06:59 06:59 06:59 Intake Total 3862 2880 1030 Output Total 3400 2620 2100 Balance 462 260 -1070 Weight 57.4 kg 57.4 kg GENERAL: This is a well-developed very thin appearing -Spanish male resting in bed currently in no acute distress. There is some evidence of temporal muscle wasting. HEART: Regular rate and rhythm. No murmurs, rubs or gallops. LUNGS: Clear to auscultation bilaterally with equal rise and fall of the chest. ABDOMEN: Soft, some tender to palpation in the lower quadrants. nondistended with normoactive bowel sounds. Ileostomy bag is in place with brown liquid stool. EXTREMETIES: No clubbing, cyanosis or edema. 2+ peripheral pulses bilaterally. NEURO: Awake, alert and oriented 3. Cranial nerves II through XII are grossly intact. Results Laboratory Results: 09/30/16 06:30 09/30/16 06:30 09/29/16 09/30/16 09/30/16 21:25 05:00 05:00 WBC Cancelled RBC Cancelled Hgb Cancelled Hct Cancelled MCV Cancelled MCH Cancelled MCHC Cancelled RDW Cancelled Plt Count Cancelled Seg Neutrophils % Cancelled Lymphocytes % Cancelled Monocytes % Cancelled Eosinophils % Cancelled Basophils % Cancelled Absolute Neutrophils Cancelled Absolute Lymphocytes Cancelled Absolute Monocytes Cancelled Absolute Eosinophils Cancelled Absolute Basophils Cancelled Sodium Cancelled Potassium Cancelled Chloride Cancelled Carbon Dioxide Cancelled Anion Gap Cancelled BUN Cancelled Creatinine Cancelled Est GFR ( Amer) Cancelled Est GFR (Non-Af Amer) Cancelled Glucose Cancelled Calcium Cancelled Phosphorus Cancelled Magnesium Cancelled Total Bilirubin Cancelled AST Cancelled ALT Cancelled Alkaline Phosphatase Cancelled Total Protein Cancelled Albumin Cancelled Triglycerides 90 09/30/16 09/30/16 06:30 06:30 WBC 20.6 H RBC 3.28 L Hgb 7.3 L Hct 23.3 L MCV 71 L MCH 22.3 L MCHC 31.4 L RDW 15.5 H Plt Count 1054 H* Seg Neutrophils % Not Reportable Lymphocytes % Not Reportable Monocytes % Not Reportable Eosinophils % Not Reportable Basophils % Not Reportable Absolute Neutrophils Not Reportable Absolute Lymphocytes Not Reportable Absolute Monocytes Not Reportable Absolute Eosinophils Not Reportable Absolute Basophils Not Reportable Sodium 133.6 L Potassium 4.6 Chloride 95 L Carbon Dioxide 28 Anion Gap 11 BUN 15 Creatinine 0.94 Est GFR ( Amer) > 60 Est GFR (Non-Af Amer) > 60 Glucose 81 Calcium 9.8 Phosphorus 5.3 H Magnesium 1.7 Total Bilirubin 0.5 AST 72 H ALT 125 H Alkaline Phosphatase 234 H Total Protein 8.1 Albumin 2.9 L Triglycerides 09/25/16 09:03 Blood Blood Culture - Final NO GROWTH IN 5 DAYS Impressions: KUB X-Ray 09/23/16 17:12 IMPRESSION: Tube placement as described. Chest X-Ray 09/25/16 07:39 IMPRESSION: Minimal bibasilar bandlike atelectasis Abdomen/Pelvis CT 09/27/16 00:00 IMPRESSION: Postsurgical changes as noted above. Multiple thick-walled fluid collections are identified which were present on the previous study and do not appear to represent distended bowel loops. Again the lack of oral contrast makes exact delineation somewhat difficult. There are air and fluid distended small bowel loops consistent with a small bowel obstruction. Clinical correlation is recommended. Other findings as noted above Chest CT 09/27/16 00:00 IMPRESSION: Minimal linear densities in the left lung base which could represent atelectatic changes or minimal pneumonic infiltrate. Other findings as noted above Facial Bones CT 09/27/16 00:00 IMPRESSION: NG tube is identified. No other significant findings. Assessment & Plan - Diagnosis (1) Small bowel obstruction Is this a current diagnosis for this admission?: YesPlan: Diverting ileostomy is in place. He is to be transferred divided on the for surgery. Patient remains n.p.o. TPN is being given continuously with a goal rate of 75 cc/h. Continue to titrate up to goal. (2) Acute renal failure Qualifiers: Acute renal failure type: unspecified Qualified Code(s): N17.9 - Acute kidney failure, unspecified Plan: Improved from 2 days ago but unchanged from yesterday. Continue fluids. (3) Colon cancer Qualifiers: Is this a current diagnosis for this admission?: YesPlan: The patient is going to undergo procedure at [facility] on 10/16/2016. He is going to remain here for TPN until the date of surgery. (4) Generalized abdominal pain Plan: Pain is chronic and is at its baseline. Continue current pain medications. These have been removed with the pharmacy. (5) High output ileostomy Plan: Concern for small bowel obstruction. Patient is currently draining liquid brown stool to her diverting colostomy. He is due to follow-up at [facility] for surgery October 16. (7) DVT prophylaxis Is this a current diagnosis for this admission?: YesPlan: Heparin 3 times daily. Has SCDs in the room but does not use them all the time. - Time Time Spent with patient: 25-34 minutes - Inpatient Certification Medical Necessity: Need For IV Fluids
[2016-09-30] MEDS: HEPARIN SOD (PORCINE) 5,000 UNIT/ML 1 ML SYRINGE SUBCUT SCH (22:17)
[2016-10-01] MEDS: PIPERACILLIN SODIUM/TAZOBACTAM 3.375 GM in NORMAL SALINE 100 ML IV SCH ×4 (02:59→20:31)
[2016-10-01] MEDS: DIPHENHYDRAMINE HCL 50 MG/ML VIAL IV PRN ×3 (02:59→20:31)
[2016-10-01] MEDS: VANCOMYCIN HCL 1,000 MG in DEXTROSE 5%-WATER 250 ML IV SCH ×2 (03:00→09:12)
[2016-10-01] MEDS: HYDROMORPHONE HCL INJ/PF 2 MG/ML AMPULE IV PRN ×5 (03:00→22:05)
[2016-10-01] MEDS: HEPARIN SOD (PORCINE) 5,000 UNIT/ML 1 ML SYRINGE SUBCUT SCH ×3 (05:14→22:05)
[2016-10-01 08:10] LABS: HEMATOCRIT 23.8 % (37.9-51.0); HGB HCT DIFFERENCE -1.6; MEAN CORPUSCULAR HEMOGLOBIN 22.4 pg (27.0-33.4); MEAN CORPUSCULAR HGB CONC 31.2 g/dL (32.0-36.0); MEAN CORPUSCULAR VOLUME 72 fl (80-97); RED BLOOD COUNT 3.31 10^6/uL (4.35-5.55); RED CELL DISTRIBUTION WIDTH 15.4 % (11.5-14.0)
[2016-10-01 08:12] LABS: HEMOGLOBIN 7.4 g/dL (13.5-17.0)
[2016-10-01 08:14] LABS: ANISOCYTOSIS 1+; BAND NEUTROPHILS % (MANUAL) 1 % (3-5); BASOPHILS % (MANUAL) 3 % (0-2); EOSINOPHILS % (MANUAL) 0 % (0-6); HYPOCHROMASIA 1+; LYMPHOCYTES % (MANUAL) 5 % (13-45); MICROCYTOSIS 2+; POLYCHROMASIA 1+; ROULEAUX 1+; TARGET CELLS 2+; TOTAL CELLS COUNTED 100; TOXIC GRANULATION 1+
[2016-10-01 08:50] LABS: ANION GAP 11 (5-19); BLOOD UREA NITROGEN 14 mg/dL (7-20); CALCIUM 9.8 mg/dL (8.4-10.2); CARBON DIOXIDE 27 mmol/L (22-30); CHLORIDE 96 mmol/L (98-107); CREATININE RESULT 1.01 mg/dL (0.52-1.25); GLUCOSE 54 mg/dL (75-110); MAGNESIUM 1.7 mg/dL (1.6-2.3); POTASSIUM 4.5 mmol/L (3.6-5.0); SODIUM 134.1 mmol/L (137-145)
[2016-10-01] MEDS: LEVOFLOXACIN 750 MG/D5W RTU 150 ML IV SCH (12:13)
[2016-10-01] MEDS: AMINO ACIDS 5%/D25W 1,000 ML IV PRN (15:42)
--- NOTE | 2016-10-01 16:40 | PDOC PROGRESS REPORT ---
Subjective Progress Note for:: 10/01/16 Subjective:: Patient states that his abdominal pain is at its usual level. the patient admits to consuming orange soda. He states that most of a gets sucked back out the NG tube. I suggested that if his ostomy output picks up to what it usually is as an outpatient that we could consider a trial of refeeding and clamping of his NG tube. The patient tells me quite frankly that this is what he intends to do anyway with or without any medical advice. Physical Exam Vital Signs: Temp Pulse Resp BP Pulse Ox 98.9 F 84 18 106/74 100 10/01/16 15:50 10/01/16 15:50 10/01/16 15:50 10/01/16 15:50 10/01/16 15:50 Intake & Output 09/30/16 10/01/16 10/02/16 06:59 06:59 06:59 Intake Total 2880 2430 Output Total 2620 3340 Balance 260 -910 Weight 57.4 kg 58 kg GENERAL: This is a well-developed very thin appearing -Malaysian male resting in bed currently in no acute distress. There is some evidence of temporal muscle wasting. HEART: Regular rate and rhythm. No murmurs, rubs or gallops. LUNGS: Clear to auscultation bilaterally with equal rise and fall of the chest. ABDOMEN: Soft, some tender to palpation in the lower quadrants. nondistended with normoactive bowel sounds. Ileostomy bag is in place with brown liquid stool. NG tube was clamped off EXTREMETIES: No clubbing, cyanosis or edema. 2+ peripheral pulses bilaterally. NEURO: Awake, alert and oriented 3. Cranial nerves II through XII are grossly intact. Results Laboratory Results: 10/01/16 05:30 10/01/16 05:30 10/01/16 10/01/16 10/01/16 02:55 02:55 03:40 WBC Cancelled Cancelled RBC Cancelled Cancelled Hgb Cancelled Cancelled Hct Cancelled Cancelled MCV Cancelled Cancelled MCH Cancelled Cancelled MCHC Cancelled Cancelled RDW Cancelled Cancelled Plt Count Cancelled Cancelled Seg Neutrophils % Cancelled Cancelled Lymphocytes % Cancelled Cancelled Monocytes % Cancelled Cancelled Eosinophils % Cancelled Cancelled Basophils % Cancelled Cancelled Absolute Neutrophils Cancelled Cancelled Absolute Lymphocytes Cancelled Cancelled Absolute Monocytes Cancelled Cancelled Absolute Eosinophils Cancelled Cancelled Absolute Basophils Cancelled Cancelled Sodium Cancelled Potassium Cancelled Chloride Cancelled Carbon Dioxide Cancelled Anion Gap Cancelled BUN Cancelled Creatinine Cancelled Est GFR ( Amer) Cancelled Est GFR (Non-Af Amer) Cancelled Glucose Cancelled Calcium Cancelled Magnesium Cancelled 10/01/16 10/01/16 10/01/16 03:40 05:30 05:30 WBC 20.0 H RBC 3.31 L Hgb 7.4 L Hct 23.8 L MCV 72 L MCH 22.4 L MCHC 31.2 L RDW 15.4 H Plt Count 1037 H* Seg Neutrophils % Not Reportable Lymphocytes % Not Reportable Monocytes % Not Reportable Eosinophils % Not Reportable Basophils % Not Reportable Absolute Neutrophils Not Reportable Absolute Lymphocytes Not Reportable Absolute Monocytes Not Reportable Absolute Eosinophils Not Reportable Absolute Basophils Not Reportable Sodium Cancelled 134.1 L Potassium Cancelled 4.5 Chloride Cancelled 96 L Carbon Dioxide Cancelled 27 Anion Gap Cancelled 11 BUN Cancelled 14 Creatinine Cancelled 1.01 Est GFR ( Amer) Cancelled > 60 Est GFR (Non-Af Amer) Cancelled > 60 Glucose Cancelled 54 L Calcium Cancelled 9.8 Magnesium Cancelled 1.7 Impressions: KUB X-Ray 09/23/16 17:12 IMPRESSION: Tube placement as described. Chest X-Ray 09/25/16 07:39 IMPRESSION: Minimal bibasilar bandlike atelectasis Abdomen/Pelvis CT 09/27/16 00:00 IMPRESSION: Postsurgical changes as noted above. Multiple thick-walled fluid collections are identified which were present on the previous study and do not appear to represent distended bowel loops. Again the lack of oral contrast makes exact delineation somewhat difficult. There are air and fluid distended small bowel loops consistent with a small bowel obstruction. Clinical correlation is recommended. Other findings as noted above Chest CT 09/27/16 00:00 IMPRESSION: Minimal linear densities in the left lung base which could represent atelectatic changes or minimal pneumonic infiltrate. Other findings as noted above Facial Bones CT 09/27/16 00:00 IMPRESSION: NG tube is identified. No other significant findings. Assessment & Plan - Diagnosis (1) Small bowel obstruction Is this a current diagnosis for this admission?: Yes Plan: Diverting ileostomy is in place. He is to be transferred divided on the for surgery. Patient remains n.p.o. TPN is being given continuously with a goal rate of 75 cc/h. Continue to titrate up to goal. Patient is consuming fluids against recommendations. While he is awaiting surgery he is being treated for elevated white count. I did discuss with discharge planning and TPN can in fact be given at home. If we can optimize the patient prior to his surgery and send him home to await outpatient follow-up for surgical intervention, then I think that would be the best course of action. As for now , the patient has a good reason to remain hospitalized. Continue to monitor. (2) Acute renal failure Qualifiers: Acute renal failure type: unspecified Qualified Code(s): N17.9 - Acute kidney failure, unspecified Plan: Improved. Continue fluids. (3) Colon cancer Qualifiers: Is this a current diagnosis for this admission?: Yes Plan: The patient is going to undergo procedure at [facility] on 10/16/2016. He is going to remain here for TPN until the date of surgery. (4) Generalized abdominal pain Plan: Pain is chronic and is at its baseline. Continue current pain medications. (5) High output ileostomy Plan: Concern for small bowel obstruction. Patient is currently draining liquid brown stool to her diverting colostomy. He is due to follow-up at [facility] for surgery October 16. (6) Sepsis Plan: Continue current antibiotics. White blood cell count remains at 20. Vinson cultures are negative. (7) DVT prophylaxis Is this a current diagnosis for this admission?: Yes Plan: Heparin 3 times daily. Has SCDs in the room but does not use them all the time. - Time Time Spent with patient: 15-24 minutes - Inpatient Certification Medical Necessity: Need Close Monitoring Due to Risk of Patient Decompensation
[2016-10-01] MEDS: VANCOMYCIN HCL 1,250 MG in DEXTROSE 5%-WATER 250 ML IV SCH (22:05)
[2016-10-02] MEDS: PIPERACILLIN SODIUM/TAZOBACTAM 3.375 GM in NORMAL SALINE 100 ML IV SCH ×4 (02:16→20:10)
[2016-10-02] MEDS: HYDROMORPHONE HCL INJ/PF 2 MG/ML AMPULE IV PRN ×5 (02:16→20:07)
[2016-10-02] MEDS: HEPARIN SOD (PORCINE) 5,000 UNIT/ML 1 ML SYRINGE SUBCUT SCH ×3 (06:20→21:54)
[2016-10-02] MEDS: ONDANSETRON HCL INJ/PF 4 MG/2 ML SDV IV PRN (06:21)
[2016-10-02] MEDS: DIPHENHYDRAMINE HCL 50 MG/ML VIAL IV PRN ×3 (06:21→20:07)
[2016-10-02] MEDS: AMINO ACIDS 5%/D25W 1,000 ML IV PRN ×2 (06:21→22:58)
[2016-10-02 06:41] LABS: ANION GAP 13 (5-19); BLOOD UREA NITROGEN 12 mg/dL (7-20); CALCIUM 9.5 mg/dL (8.4-10.2); CARBON DIOXIDE 25 mmol/L (22-30); CHLORIDE 97 mmol/L (98-107); GLUCOSE 75 mg/dL (75-110); POTASSIUM 4.3 mmol/L (3.6-5.0); SODIUM 134.8 mmol/L (137-145)
[2016-10-02] MEDS: VANCOMYCIN HCL 1,250 MG in DEXTROSE 5%-WATER 250 ML IV SCH ×2 (10:10→21:54)
[2016-10-02] MEDS: FAT EMULSIONS 250 ML IV SCH (10:10)
[2016-10-02] MEDS: LEVOFLOXACIN 750 MG/D5W RTU 150 ML IV SCH (12:36)
--- NOTE | 2016-10-02 14:15 | PDOC PROGRESS REPORT ---
Subjective Progress Note for:: 10/02/16 Subjective:: Patient states that his abdominal pain is at its usual level. No acute events overnight. He denies any chest pain or shortness of breath. He did not have any increase in his ostomy output. Physical Exam Vital Signs: Temp Pulse Resp BP Pulse Ox 98.5 F 85 16 104/74 100 10/02/16 11:24 10/02/16 11:24 10/02/16 11:24 10/02/16 11:24 10/02/16 11:24 Intake & Output 10/01/16 10/02/16 10/03/16 06:59 06:59 06:59 Intake Total 2430 3090 Output Total 3340 3900 900 Balance -910 -810 -900 Weight 58 kg 57.9 kg GENERAL: This is a well-developed very thin appearing -[place] male resting in bed currently in no acute distress. There is some evidence of temporal muscle wasting. HEART: Regular rate and rhythm. No murmurs, rubs or gallops. LUNGS: Clear to auscultation bilaterally with equal rise and fall of the chest. ABDOMEN: Soft, mildly tender to palpation in the lower quadrants. nondistended with normoactive bowel sounds. Ileostomy bag is in place with brown liquid stool. NG tube was hooked to suction. Cancer was completely full and being changed while in the room. EXTREMETIES: No clubbing, cyanosis or edema. 2+ peripheral pulses bilaterally. NEURO: Awake, alert and oriented 3. Cranial nerves II through XII are grossly intact. Results Laboratory Results: 10/01/16 05:30 10/02/16 05:50 10/02/16 05:50 Sodium 134.8 L Potassium 4.3 Chloride 97 L Carbon Dioxide 25 Anion Gap 13 BUN 12 Creatinine 1.00 Est GFR ( Amer) > 60 Est GFR (Non-Af Amer) > 60 Glucose 75 Calcium 9.5 09/27/16 09:17 Blood Blood Culture - Final NO GROWTH IN 5 DAYS 09/27/16 08:13 Blood Blood Culture - Final NO GROWTH IN 5 DAYS Impressions: KUB X-Ray 09/23/16 17:12 IMPRESSION: Tube placement as described. Chest X-Ray 09/25/16 07:39 IMPRESSION: Minimal bibasilar bandlike atelectasis Abdomen/Pelvis CT 09/27/16 00:00 IMPRESSION: Postsurgical changes as noted above. Multiple thick-walled fluid collections are identified which were present on the previous study and do not appear to represent distended bowel loops. Again the lack of oral contrast makes exact delineation somewhat difficult. There are air and fluid distended small bowel loops consistent with a small bowel obstruction. Clinical correlation is recommended. Other findings as noted above Chest CT 09/27/16 00:00 IMPRESSION: Minimal linear densities in the left lung base which could represent atelectatic changes or minimal pneumonic infiltrate. Other findings as noted above Facial Bones CT 09/27/16 00:00 IMPRESSION: NG tube is identified. No other significant findings. Assessment & Plan - Diagnosis (1) Small bowel obstruction Is this a current diagnosis for this admission?: Yes Plan: Diverting ileostomy is in place. He is to be transferred to [facility] on the for surgery. Patient remains n.p.o. TPN is being given continuously with a goal rate of 75 cc/h. Continue to titrate up to goal today. He is currently at 70 cc/h. (2) Acute renal failure Qualifiers: Acute renal failure type: unspecified Qualified Code(s): N17.9 - Acute kidney failure, unspecified Plan: Improved. Continue fluids. (3) Colon cancer Qualifiers: Is this a current diagnosis for this admission?: Yes Plan: The patient is going to undergo procedure at [facility] on 10/16/2016. He is going to remain here for TPN until the date of surgery. (4) Generalized abdominal pain Plan: Pain is chronic and is at its baseline. Continue current pain medications. (5) High output ileostomy Plan: Concern for small bowel obstruction. Patient is currently draining liquid brown stool to her diverting colostomy. He is due to follow-up at [facility] for surgery October 16. (6) Sepsis Plan: Continue current antibiotics. White blood cell count remains at 20. Vinson cultures are negative. (7) DVT prophylaxis Is this a current diagnosis for this admission?: Yes Plan: Heparin 3 times daily. Has SCDs in the room but does not use them all the time. - Time Time Spent with patient: 15-24 minutes - Inpatient Certification Medical Necessity: Need Close Monitoring Due to Risk of Patient Decompensation
[2016-10-03] MEDS: HYDROMORPHONE HCL INJ/PF 2 MG/ML AMPULE IV PRN ×6 (00:17→21:02)
[2016-10-03] MEDS: DIPHENHYDRAMINE HCL 50 MG/ML VIAL IV PRN ×3 (04:16→21:02)
[2016-10-03] MEDS: PIPERACILLIN SODIUM/TAZOBACTAM 3.375 GM in NORMAL SALINE 100 ML IV SCH ×4 (04:16→20:59)
[2016-10-03] MEDS: HEPARIN SOD (PORCINE) 5,000 UNIT/ML 1 ML SYRINGE SUBCUT SCH ×3 (05:08→21:06)
[2016-10-03 06:34] LABS: ANION GAP 9 (5-19); BLOOD UREA NITROGEN 12 mg/dL (7-20); CALCIUM 9.6 mg/dL (8.4-10.2); CARBON DIOXIDE 28 mmol/L (22-30); CHLORIDE 99 mmol/L (98-107); CREATININE RESULT 0.98 mg/dL (0.52-1.25); GLUCOSE 73 mg/dL (75-110); POTASSIUM 3.9 mmol/L (3.6-5.0); SODIUM 135.6 mmol/L (137-145)
[2016-10-03] MEDS: VANCOMYCIN HCL 1,250 MG in DEXTROSE 5%-WATER 250 ML IV SCH (09:17)
[2016-10-03 09:26] LABS: CREATININE RESULT 0.98 mg/dL (0.52-1.25)
[2016-10-03] MEDS: LEVOFLOXACIN 750 MG/D5W RTU 150 ML IV SCH (12:21)
[2016-10-03] MEDS: ONDANSETRON HCL INJ/PF 4 MG/2 ML SDV IV PRN (12:34)
--- NOTE | 2016-10-03 14:15 | PDOC PROGRESS REPORT ---
Subjective Progress Note for:: 10/03/16 Subjective:: Patient states that his abdominal pain is at its usual level. No acute events overnight. He denies any chest pain or shortness of breath. He did not have any increase in his ostomy output. Physical Exam Vital Signs: Temp Pulse Resp BP Pulse Ox 98.4 F 78 17 107/69 100 10/03/16 11:37 10/03/16 11:37 10/03/16 11:37 10/03/16 11:37 10/03/16 11:37 Intake & Output 10/02/16 10/03/16 10/04/16 06:59 06:59 06:59 Intake Total 3090 3390 Output Total 3900 3600 Balance -810 -210 Weight 57.9 kg 58 kg GENERAL: This is a well-developed very thin appearing -[place] male resting in bed currently in no acute distress. There is some evidence of temporal muscle wasting. HEART: Regular rate and rhythm. No murmurs, rubs or gallops. LUNGS: Clear to auscultation bilaterally with equal rise and fall of the chest. ABDOMEN: Soft, mildly tender to palpation in the lower quadrants. nondistended with normoactive bowel sounds. Ileostomy bag is in place with brown liquid stool. NG tube was hooked to suction. EXTREMETIES: No clubbing, cyanosis or edema. 2+ peripheral pulses bilaterally. NEURO: Awake, alert and oriented 3. Cranial nerves II through XII are grossly intact. Results Laboratory Results: 10/01/16 05:30 10/03/16 08:30 10/03/16 10/03/16 05:50 08:30 Sodium 135.6 L Potassium 3.9 Chloride 99 Carbon Dioxide 28 Anion Gap 9 BUN 12 Creatinine 0.98 0.98 Est GFR ( Amer) > 60 > 60 Est GFR (Non-Af Amer) > 60 > 60 Glucose 73 L Calcium 9.6 Impressions: KUB X-Ray 09/23/16 17:12 IMPRESSION: Tube placement as described. Chest X-Ray 09/25/16 07:39 IMPRESSION: Minimal bibasilar bandlike atelectasis Abdomen/Pelvis CT 09/27/16 00:00 IMPRESSION: Postsurgical changes as noted above. Multiple thick-walled fluid collections are identified which were present on the previous study and do not appear to represent distended bowel loops. Again the lack of oral contrast makes exact delineation somewhat difficult. There are air and fluid distended small bowel loops consistent with a small bowel obstruction. Clinical correlation is recommended. Other findings as noted above Chest CT 09/27/16 00:00 IMPRESSION: Minimal linear densities in the left lung base which could represent atelectatic changes or minimal pneumonic infiltrate. Other findings as noted above Facial Bones CT 09/27/16 00:00 IMPRESSION: NG tube is identified. No other significant findings. Assessment & Plan - Diagnosis (1) Small bowel obstruction Is this a current diagnosis for this admission?: Yes Plan: Diverting ileostomy is in place. He is to be transferred to [facility] on the for surgery. Patient remains n.p.o. TPN is being given continuously with a goal rate of 75 cc/h. Continue to titrate up to goal today. He is currently at 70 cc/h. (2) Acute renal failure Qualifiers: Acute renal failure type: unspecified Qualified Code(s): N17.9 - Acute kidney failure, unspecified Plan: Improved. Continue fluids. (3) Colon cancer Qualifiers: Is this a current diagnosis for this admission?: Yes Plan: The patient is going to undergo procedure at [facility] on 10/16/2016. He is going to remain here for TPN until the date of surgery. (4) Generalized abdominal pain Plan: Pain is chronic and is at its baseline. Continue current pain medications. (5) High output ileostomy Plan: Concern for small bowel obstruction. Patient is currently draining liquid brown stool to her diverting colostomy. He is due to follow-up at [facility] for surgery October 16. (6) Sepsis Plan: Continue current antibiotics. White blood cell count remains at 20. Vinson cultures are negative. (7) DVT prophylaxis Is this a current diagnosis for this admission?: Yes Plan: Heparin 3 times daily. Has SCDs in the room but does not use them all the time. - Time Time Spent with patient: 15-24 minutes - Inpatient Certification Medical Necessity: Need Close Monitoring Due to Risk of Patient Decompensation
[2016-10-03] MEDS: AMINO ACIDS 5%/D25W 1,000 ML IV PRN (14:59)
[2016-10-03] MEDS: VANCOMYCIN HCL 1,000 MG in DEXTROSE 5%-WATER 250 ML IV SCH (22:20)
[2016-10-04] MEDS: HYDROMORPHONE HCL INJ/PF 2 MG/ML AMPULE IV PRN ×6 (01:28→20:54)
[2016-10-04] MEDS: PIPERACILLIN SODIUM/TAZOBACTAM 3.375 GM in NORMAL SALINE 100 ML IV SCH ×2 (03:34→09:11)
[2016-10-04] MEDS: DIPHENHYDRAMINE HCL 50 MG/ML VIAL IV PRN ×3 (03:34→20:54)
[2016-10-04] MEDS: AMINO ACIDS 5%/D25W 1,000 ML IV PRN ×2 (05:12→19:18)
[2016-10-04] MEDS: HEPARIN SOD (PORCINE) 5,000 UNIT/ML 1 ML SYRINGE SUBCUT SCH ×3 (05:12→22:10)
[2016-10-04 05:46] LABS: HEMATOCRIT 21.9 % (37.9-51.0); HGB HCT DIFFERENCE -1.2; MEAN CORPUSCULAR HEMOGLOBIN 22.7 pg (27.0-33.4); MEAN CORPUSCULAR HGB CONC 31.4 g/dL (32.0-36.0); MEAN CORPUSCULAR VOLUME 72 fl (80-97); RED BLOOD COUNT 3.03 10^6/uL (4.35-5.55); RED CELL DISTRIBUTION WIDTH 15.4 % (11.5-14.0)
[2016-10-04 05:51] LABS: ANION GAP 11 (5-19); BLOOD UREA NITROGEN 12 mg/dL (7-20); CALCIUM 9.7 mg/dL (8.4-10.2); CARBON DIOXIDE 25 mmol/L (22-30); CHLORIDE 100 mmol/L (98-107); CREATININE RESULT 1.05 mg/dL (0.52-1.25); GLUCOSE 88 mg/dL (75-110); MAGNESIUM 1.5 mg/dL (1.6-2.3); SODIUM 135.7 mmol/L (137-145)
[2016-10-04 06:22] LABS: BAND NEUTROPHILS % (MANUAL) 2 % (3-5); BASOPHILS % (MANUAL) 0 % (0-2); EOSINOPHILS % (MANUAL) 3 % (0-6); LYMPHOCYTES % (MANUAL) 7 % (13-45); TOTAL CELLS COUNTED 100
[2016-10-04 06:23] LABS: ANISOCYTOSIS 1+; ROULEAUX 2+; TOXIC GRANULATION 1+; TOXIC VACUOLATION PRESENT
[2016-10-04 06:24] LABS: HYPOCHROMASIA SLIGHT; MICROCYTOSIS 1+; POLYCHROMASIA 2+
[2016-10-04 06:25] LABS: HEMOGLOBIN 6.9 g/dL (13.5-17.0)
[2016-10-04] MEDS ORDERED: NORMAL SALINE 250 ML IV PRN (09:17)
[2016-10-04] MEDS ORDERED: MAGNESIUM SULFATE/D5W 1 GM/100 ML RTUPB IV SCH (09:30)
--- NOTE | 2016-10-04 09:42 | PDOC PROGRESS REPORT ---
Subjective Progress Note for:: 10/04/16 Subjective:: Pt states that he is doing well. Pt states that he has not had fever or night sweats. Pt states he has not coughed up blood or seen blood in stool. Physical Exam Vital Signs: Temp Pulse Resp BP Pulse Ox 98.0 F 89 12 105/69 100 10/04/16 08:20 10/04/16 08:20 10/04/16 08:20 10/04/16 08:20 10/04/16 08:20 Intake & Output 10/03/16 10/04/16 10/05/16 06:59 06:59 06:59 Intake Total 3390 1300 Output Total 3600 4150 Balance -210 -2850 Weight 58 kg 58 kg General appearance: PRESENT: no acute distress, cooperative, other - temporal wasting Head exam: PRESENT: atraumatic, normocephalic Eye exam: PRESENT: conjunctiva pink, EOMI Mouth exam: PRESENT: neck supple Neck exam: PRESENT: full ROM, tenderness Respiratory exam: PRESENT: clear to auscultation luisa, unlabored Cardiovascular exam: PRESENT: RRR, rubs Pulses: PRESENT: normal radial pulses, normal femoral pulses GI/Abdominal exam: PRESENT: normal bowel sounds, soft, other - Ostomy in place Extremities exam: PRESENT: full ROM Musculoskeletal exam: PRESENT: full ROM, normal inspection Neurological exam: PRESENT: alert, altered, awake, oriented to person, oriented to place, oriented to time Psychiatric exam: PRESENT: appropriate affect, normal mood Skin exam: PRESENT: normal color, skin tears Results Laboratory Results: 10/04/16 05:10 10/04/16 05:10 10/03/16 10/04/16 10/04/16 08:30 05:10 05:10 WBC 25.0 H RBC 3.03 L Hgb 6.9 L Hct 21.9 L MCV 72 L MCH 22.7 L MCHC 31.4 L RDW 15.4 H Plt Count 1030 H* Seg Neutrophils % Not Reportable Lymphocytes % Not Reportable Monocytes % Not Reportable Eosinophils % Not Reportable Basophils % Not Reportable Absolute Neutrophils Not Reportable Absolute Lymphocytes Not Reportable Absolute Monocytes Not Reportable Absolute Eosinophils Not Reportable Absolute Basophils Not Reportable Sodium 135.7 L Potassium 4.0 Chloride 100 Carbon Dioxide 25 Anion Gap 11 BUN 12 Creatinine 0.98 1.05 Est GFR ( Amer) > 60 > 60 Est GFR (Non-Af Amer) > 60 > 60 Glucose 88 Calcium 9.7 Magnesium 1.5 L Impressions: KUB X-Ray 09/23/16 17:12 IMPRESSION: Tube placement as described. Chest X-Ray 09/25/16 07:39 IMPRESSION: Minimal bibasilar bandlike atelectasis Abdomen/Pelvis CT 09/27/16 00:00 IMPRESSION: Postsurgical changes as noted above. Multiple thick-walled fluid collections are identified which were present on the previous study and do not appear to represent distended bowel loops. Again the lack of oral contrast makes exact delineation somewhat difficult. There are air and fluid distended small bowel loops consistent with a small bowel obstruction. Clinical correlation is recommended. Other findings as noted above Chest CT 09/27/16 00:00 IMPRESSION: Minimal linear densities in the left lung base which could represent atelectatic changes or minimal pneumonic infiltrate. Other findings as noted above Facial Bones CT 09/27/16 00:00 IMPRESSION: NG tube is identified. No other significant findings. Assessment & Plan - Diagnosis (1) Sepsis Qualifiers: Sepsis type: methicillin susceptible Staphylococcus aureus Qualified Code(s ): A41.01 - Sepsis due to Methicillin susceptible Staphylococcus aureus Is this a current diagnosis for this admission?: Yes Plan: Will order for 2 D Echo for Thursday. No heart murmur heard on exam. Pt's repeat blood cultures are no growth. Will continue current antibiotic regimen. (2) Small bowel obstruction Is this a current diagnosis for this admission?: Yes Plan: Pt with NGT in place. Will continue to monitor. (3) Anemia of chronic disease Is this a current diagnosis for this admission?: Yes Plan: Will do anemia workup. Pt could have an Iron deficiency component. Will transfuse 2 units of Packed RBC today. (4) Hypomagnesemia Is this a current diagnosis for this admission?: Yes Plan: Will give 2 grams of Magnesium today. Will check labs in am. (5) Malnutrition of moderate degree Is this a current diagnosis for this admission?: Yes Plan: Will check Phosp. Continue TPN. (6) Colon cancer Qualifiers: Is this a current diagnosis for this admission?: Yes Plan: Stage 4 Colon Cancer with Small Bowel Obstruction: Pt scheduled for transfer to [facility] Oct 16. Will continue TPN. (7) Thrombocytosis Is this a current diagnosis for this admission?: Yes Plan: Will monitor. Pt on heparin. (8) DVT prophylaxis Is this a current diagnosis for this admission?: Yes Plan: Heparin - Time Time Spent with patient: 15-24 minutes Medications reviewed and adjusted accordingly: Yes
[2016-10-04] MEDS: VANCOMYCIN HCL 1,000 MG in DEXTROSE 5%-WATER 250 ML IV SCH ×2 (10:37→22:10)
[2016-10-04] MEDS ORDERED: MAGNESIUM SULFATE/D5W 1 GM/100 ML RTUPB IV ONE (11:30)
[2016-10-04] MEDS: NORMAL SALINE 250 ML IV PRN ×2 (13:30→17:14)
[2016-10-04 22:28] LABS: HEMATOCRIT 30.4 % (37.9-51.0); HGB HCT DIFFERENCE -1.6; MEAN CORPUSCULAR HEMOGLOBIN 23.8 pg (27.0-33.4); MEAN CORPUSCULAR HGB CONC 31.8 g/dL (32.0-36.0); MEAN CORPUSCULAR VOLUME 75 fl (80-97); RED BLOOD COUNT 4.06 10^6/uL (4.35-5.55); RED CELL DISTRIBUTION WIDTH 18.5 % (11.5-14.0); WHITE BLOOD COUNT 25.1 10^3/uL (4.0-10.5)
[2016-10-04 23:04] LABS: BASOPHILS % (MANUAL) 1 % (0-2); EOSINOPHILS % (MANUAL) 1 % (0-6); LYMPHOCYTES % (MANUAL) 2 % (13-45); TOTAL CELLS COUNTED 100
[2016-10-04 23:08] LABS: POLYCHROMASIA 1+
[2016-10-04 23:09] LABS: ANISOCYTOSIS 2+; HEMOGLOBIN 9.6 g/dL (13.5-17.0); HYPOCHROMASIA 2+; MICROCYTOSIS 1+
[2016-10-04 23:10] LABS: TARGET CELLS 3+
[2016-10-05] MEDS: HYDROMORPHONE HCL INJ/PF 2 MG/ML AMPULE IV PRN ×6 (01:19→21:06)
[2016-10-05] MEDS: HEPARIN SOD (PORCINE) 5,000 UNIT/ML 1 ML SYRINGE SUBCUT SCH ×3 (05:18→21:58)
[2016-10-05] MEDS: DIPHENHYDRAMINE HCL 50 MG/ML VIAL IV PRN ×4 (05:19→23:39)
[2016-10-05 05:39] LABS: MEAN CORPUSCULAR HEMOGLOBIN 24.1 pg (27.0-33.4); MEAN CORPUSCULAR VOLUME 75 fl (80-97); RED BLOOD COUNT 3.73 10^6/uL (4.35-5.55); RED CELL DISTRIBUTION WIDTH 18.7 % (11.5-14.0)
[2016-10-05 05:48] LABS: ALANINE AMINOTRANSFERASE 77 U/L (21-72); ALBUMIN 2.7 g/dL (3.5-5.0); ALKALINE PHOSPHATASE 194 U/L (38-126); ANION GAP 9 (5-19); ASPARTATE AMINO TRANSFERASE 54 U/L (17-59); BILIRUBIN,DIRECT 0.5 mg/dL (0.0-0.4); BILIRUBIN,TOTAL 0.7 mg/dL (0.2-1.3); BLOOD UREA NITROGEN 14 mg/dL (7-20); CALCIUM 10.1 mg/dL (8.4-10.2); CARBON DIOXIDE 27 mmol/L (22-30); CHLORIDE 101 mmol/L (98-107); GLUCOSE 78 mg/dL (75-110); MAGNESIUM 1.8 mg/dL (1.6-2.3); PHOSPHORUS 3.7 mg/dL (2.5-4.5); POTASSIUM 3.9 mmol/L (3.6-5.0); SODIUM 136.5 mmol/L (137-145); TOTAL PROTEIN 7.8 g/dL (6.3-8.2)
[2016-10-05 06:00] LABS: BASOPHILS % (MANUAL) 2 % (0-2); EOSINOPHILS % (MANUAL) 0 % (0-6); LYMPHOCYTES % (MANUAL) 1 % (13-45); TOTAL CELLS COUNTED 100
[2016-10-05 06:01] LABS: PLATELET CLUMPS PRESENT
[2016-10-05 06:04] LABS: ANISOCYTOSIS 2+; POIKILOCYTOSIS SLIGHT; POLYCHROMASIA 1+; TARGET CELLS 3+
[2016-10-05 09:53] LABS: APPEARANCE,URINE SLIGHTLY-CLOUDY; BILIRUBIN,URINE NEGATIVE (NEGATIVE); GLUCOSE, URINE NEGATIVE (NEGATIVE); KETONES,URINE NEGATIVE (NEGATIVE); LEUKOCYTE ESTERASE,URINE TRACE (NEGATIVE); NITRITE,URINE NEGATIVE (NEGATIVE); PROTEIN,URINE NEGATIVE (NEGATIVE); URINE SPECIFIC GRAVITY 1.004; UROBILINOGEN,URINE NEGATIVE mg/dL (<2.0)
[2016-10-05] MEDS: AMINO ACIDS 5%/D25W 1,000 ML IV PRN (10:40)
[2016-10-05] MEDS: VANCOMYCIN HCL 1,000 MG in DEXTROSE 5%-WATER 250 ML IV SCH ×2 (10:41→21:58)
[2016-10-05 10:56] LABS: CREATININE RESULT 1.21 mg/dL (0.52-1.25)
[2016-10-05] MEDS ORDERED: IRON SUCROSE COMPLEX INJ/PF 100 MG/5 ML SDV IV ONE (14:00)
[2016-10-05] MEDS: ONDANSETRON HCL INJ/PF 4 MG/2 ML SDV IV PRN (23:39)
[2016-10-06] MEDS: AMINO ACIDS 5%/D25W 1,000 ML IV PRN (00:40)
[2016-10-06] MEDS: HYDROMORPHONE HCL INJ/PF 2 MG/ML AMPULE IV PRN ×6 (01:01→21:27)
[2016-10-06] MEDS: HEPARIN SOD (PORCINE) 5,000 UNIT/ML 1 ML SYRINGE SUBCUT SCH ×3 (05:10→21:27)
[2016-10-06] MEDS: DIPHENHYDRAMINE HCL 50 MG/ML VIAL IV PRN ×3 (05:10→23:16)
[2016-10-06] MEDS: ONDANSETRON HCL INJ/PF 4 MG/2 ML SDV IV PRN ×2 (05:10→10:53)
[2016-10-06 05:55] LABS: HEMATOCRIT 25.8 % (37.9-51.0); HEMOGLOBIN 8.3 g/dL (13.5-17.0); HGB HCT DIFFERENCE -0.9; MEAN CORPUSCULAR HGB CONC 32.2 g/dL (32.0-36.0); MEAN CORPUSCULAR VOLUME 74 fl (80-97); RED BLOOD COUNT 3.46 10^6/uL (4.35-5.55); RED CELL DISTRIBUTION WIDTH 19.5 % (11.5-14.0); WHITE BLOOD COUNT 28.7 10^3/uL (4.0-10.5)
[2016-10-06] MEDS: VANCOMYCIN HCL 1,000 MG in DEXTROSE 5%-WATER 250 ML IV SCH ×2 (10:52→21:27)
[2016-10-06] MEDS: FAT EMULSIONS 250 ML IV SCH (10:53)
[2016-10-06] MEDS: IRON SUCROSE COMPLEX INJ/PF 100 MG/5 ML SDV IV SCH (11:26)
--- NOTE | 2016-10-06 11:54 | PDOC PROGRESS REPORT ---
Subjective Progress Note for:: 10/06/16 Subjective:: Pt states that he is doing ok. Pt's mother called due to concern about MRSA bacteremia. Physical Exam Vital Signs: Temp Pulse Resp BP Pulse Ox 98.2 F 78 18 114/78 98 10/06/16 08:21 10/06/16 08:21 10/06/16 08:21 10/06/16 08:21 10/06/16 08:21 Intake & Output 10/05/16 10/06/16 10/07/16 06:59 06:59 06:59 Intake Total 4414 2739 Output Total 5200 1675 Balance -786 1064 Weight 58 kg 59.1 kg General appearance: PRESENT: no acute distress, well-developed, well-nourished Head exam: PRESENT: atraumatic, normocephalic Eye exam: PRESENT: conjunctiva pink, EOMI Ear exam: PRESENT: normal external ear exam Mouth exam: PRESENT: moist, tongue midline Neck exam: ABSENT: carotid bruit, JVD, lymphadenopathy, thyromegaly Respiratory exam: PRESENT: clear to auscultation luisa. ABSENT: rales, rhonchi, wheezes Cardiovascular exam: PRESENT: RRR. ABSENT: diastolic murmur, rubs, systolic murmur Pulses: PRESENT: normal dorsalis pedis pul Vascular exam: PRESENT: normal capillary refill GI/Abdominal exam: PRESENT: normal bowel sounds, soft. ABSENT: distended, guarding, mass, organolmegaly, rebound, tenderness Extremities exam: PRESENT: full ROM. ABSENT: calf tenderness, clubbing, joint swelling, pedal edema, tenderness, +1 edema, +2 edema, other Neurological exam: PRESENT: alert, awake, oriented to person, oriented to place , oriented to time, oriented to situation, CN II-XII grossly intact. ABSENT: motor sensory deficit Psychiatric exam: PRESENT: appropriate affect, normal mood. ABSENT: homicidal ideation, suicidal ideation Skin exam: PRESENT: dry, intact, warm. ABSENT: cyanosis, rash Results Laboratory Results: 10/06/16 05:15 10/05/16 10:30 10/06/16 10/06/16 05:15 05:15 WBC 28.7 H RBC 3.46 L Hgb 8.3 L Hct 25.8 L MCV 74 L MCH 24.0 L MCHC 32.2 RDW 19.5 H Plt Count 948 H Magnesium 1.7 Impressions: KUB X-Ray 09/23/16 17:12 IMPRESSION: Tube placement as described. Chest X-Ray 09/25/16 07:39 IMPRESSION: Minimal bibasilar bandlike atelectasis Abdomen/Pelvis CT 09/27/16 00:00 IMPRESSION: Postsurgical changes as noted above. Multiple thick-walled fluid collections are identified which were present on the previous study and do not appear to represent distended bowel loops. Again the lack of oral contrast makes exact delineation somewhat difficult. There are air and fluid distended small bowel loops consistent with a small bowel obstruction. Clinical correlation is recommended. Other findings as noted above Chest CT 09/27/16 00:00 IMPRESSION: Minimal linear densities in the left lung base which could represent atelectatic changes or minimal pneumonic infiltrate. Other findings as noted above Facial Bones CT 09/27/16 00:00 IMPRESSION: NG tube is identified. No other significant findings. Assessment & Plan - Diagnosis (1) Sepsis Qualifiers: Sepsis type: methicillin susceptible Staphylococcus aureus Qualified Code(s ): A41.01 - Sepsis due to Methicillin susceptible Staphylococcus aureus Is this a current diagnosis for this admission?: Yes Plan: 2 D Echo Pending. No heart murmur heard on exam. Pt's repeat blood cultures are no growth. Will continue current antibiotic regimen. (2) Small bowel obstruction Is this a current diagnosis for this admission?: Yes Plan: Pt with NGT in place. Will continue to monitor. (3) Anemia of chronic disease Is this a current diagnosis for this admission?: Yes Plan: With Iron Deficiency Anemia: IV Iron replacement. (4) Hypomagnesemia Is this a current diagnosis for this admission?: Yes Plan: Will have additional magnesium to TPN. (5) Malnutrition of moderate degree Is this a current diagnosis for this admission?: Yes Plan: Continue TPN. (6) Colon cancer Qualifiers: Is this a current diagnosis for this admission?: Yes Plan: Stage 4 Colon Cancer with Small Bowel Obstruction: Pt scheduled for transfer to [facility] Oct 16. Will continue TPN. (7) Thrombocytosis Is this a current diagnosis for this admission?: Yes Plan: Will monitor. Pt on heparin. (8) DVT prophylaxis Is this a current diagnosis for this admission?: Yes Plan: Heparin - Time Time Spent with patient: 15-24 minutes
--- NOTE | 2016-10-06 11:57 | PDOC PROGRESS REPORT ---
Subjective Progress Note for:: 10/05/16 Subjective:: Pt states that he is doing ok. Nursing states that she has not had any problems with pt. Physical Exam Vital Signs: Temp Pulse Resp BP Pulse Ox 98.3 F 84 16 103/70 98 10/05/16 08:27 10/05/16 08:27 10/05/16 08:27 10/05/16 08:27 10/05/16 08:27 Intake & Output 10/04/16 10/05/16 10/06/16 06:59 06:59 06:59 Intake Total 1300 4414 Output Total 4150 5200 Balance -4427 -065 Weight 58 kg 58 kg General appearance: PRESENT: no acute distress, well-developed, well-nourished Head exam: PRESENT: atraumatic, normocephalic Eye exam: PRESENT: conjunctiva pink, EOMI Mouth exam: PRESENT: moist, tongue midline Neck exam: ABSENT: carotid bruit, JVD, lymphadenopathy, thyromegaly Respiratory exam: PRESENT: clear to auscultation luisa. ABSENT: rales, rhonchi, wheezes Pulses: PRESENT: normal dorsalis pedis pul Vascular exam: PRESENT: normal capillary refill GI/Abdominal exam: PRESENT: normal bowel sounds, soft. ABSENT: distended, guarding, mass, organolmegaly, rebound, tenderness Results Laboratory Results: 10/05/16 05:10 10/05/16 10:30 10/04/16 10/04/16 10/05/16 10:27 22:10 05:10 WBC 25.1 H 29.0 H RBC 4.06 L 3.73 L Hgb 9.6 L D 9.0 L Hct 30.4 L 28.0 L MCV 75 L 75 L MCH 23.8 L 24.1 L MCHC 31.8 L 32.0 RDW 18.5 H 18.7 H Plt Count 919 H 996 H Seg Neutrophils % Not Reportable Not Reportable Lymphocytes % Not Reportable Not Reportable Monocytes % Not Reportable Not Reportable Eosinophils % Not Reportable Not Reportable Basophils % Not Reportable Not Reportable Absolute Neutrophils Not Reportable Not Reportable Absolute Lymphocytes Not Reportable Not Reportable Absolute Monocytes Not Reportable Not Reportable Absolute Eosinophils Not Reportable Not Reportable Absolute Basophils Not Reportable Not Reportable Sodium Potassium Chloride Carbon Dioxide Anion Gap BUN Creatinine Est GFR ( Amer) Est GFR (Non-Af Amer) Glucose Calcium Phosphorus Magnesium Total Bilirubin AST ALT Alkaline Phosphatase Total Protein Albumin Urine Color Urine Appearance Urine pH Ur Specific [place] Urine Protein Urine Glucose (UA) Urine Ketones Urine Blood Urine Nitrite Ur Leukocyte Esterase Urine WBC (Auto) Urine RBC (Auto) Blood Type A NEGATIVE Antibody Screen NEGATIVE 10/05/16 10/05/16 10/05/16 05:10 09:05 10:30 WBC RBC Hgb Hct MCV MCH MCHC RDW Plt Count Seg Neutrophils % Lymphocytes % Monocytes % Eosinophils % Basophils % Absolute Neutrophils Absolute Lymphocytes Absolute Monocytes Absolute Eosinophils Absolute Basophils Sodium 136.5 L Potassium 3.9 Chloride 101 Carbon Dioxide 27 Anion Gap 9 BUN 14 Creatinine 1.00 1.21 Est GFR ( Amer) > 60 > 60 Est GFR (Non-Af Amer) > 60 > 60 Glucose 78 Calcium 10.1 Phosphorus 3.7 Magnesium 1.8 Total Bilirubin 0.7 AST 54 ALT 77 H Alkaline Phosphatase 194 H Total Protein 7.8 Albumin 2.7 L Urine Color YELLOW Urine Appearance SLIGHTLY-CLOUDY Urine pH 7.0 Ur Specific [place] 1.004 Urine Protein NEGATIVE Urine Glucose (UA) NEGATIVE Urine Ketones NEGATIVE Urine Blood NEGATIVE Urine Nitrite NEGATIVE Ur Leukocyte Esterase TRACE H Urine WBC (Auto) 7 Urine RBC (Auto) 1 Blood Type Antibody Screen Impressions: KUB X-Ray 09/23/16 17:12 IMPRESSION: Tube placement as described. Chest X-Ray 09/25/16 07:39 IMPRESSION: Minimal bibasilar bandlike atelectasis Abdomen/Pelvis CT 09/27/16 00:00 IMPRESSION: Postsurgical changes as noted above. Multiple thick-walled fluid collections are identified which were present on the previous study and do not appear to represent distended bowel loops. Again the lack of oral contrast makes exact delineation somewhat difficult. There are air and fluid distended small bowel loops consistent with a small bowel obstruction. Clinical correlation is recommended. Other findings as noted above Chest CT 09/27/16 00:00 IMPRESSION: Minimal linear densities in the left lung base which could represent atelectatic changes or minimal pneumonic infiltrate. Other findings as noted above Facial Bones CT 09/27/16 00:00 IMPRESSION: NG tube is identified. No other significant findings. Assessment & Plan - Diagnosis (1) Sepsis Qualifiers: Sepsis type: methicillin susceptible Staphylococcus aureus Qualified Code(s ): A41.01 - Sepsis due to Methicillin susceptible Staphylococcus aureus Is this a current diagnosis for this admission?: Yes Plan: 2 D Echo Pending. (2) Small bowel obstruction Is this a current diagnosis for this admission?: Yes Plan: Pt with NGT in place. Will continue to monitor. (3) Anemia of chronic disease Is this a current diagnosis for this admission?: Yes Plan: With Iron Deficiency Anemia: IV Iron replacement. (4) Hypomagnesemia Is this a current diagnosis for this admission?: Yes Plan: Pt given additional magnesium. (5) Malnutrition of moderate degree Is this a current diagnosis for this admission?: Yes Plan: Continue TPN. (6) Colon cancer Qualifiers: Is this a current diagnosis for this admission?: Yes Plan: Stage 4 Colon Cancer with Small Bowel Obstruction: Pt scheduled for transfer to [facility] Oct 16. Will continue TPN. (7) Thrombocytosis Is this a current diagnosis for this admission?: Yes Plan: Will monitor. Pt on heparin. (8) DVT prophylaxis Is this a current diagnosis for this admission?: Yes Plan: Heparin - Time Time Spent with patient: 15-24 minutes
--- NOTE | 2016-10-06 20:43 | XCELERA REPORT ---
[address] [address] Transthoracic Echocardiogram Report Name: JERE CRUZ Age: 41 yrs Gender: Male : 1975 Patient Status: Inpatient Patient Location: [address] [place], [place] [address] Study Date: 10/06/2016 10:13 AM Height: 70 in Weight: 130 lb BSA: 1.7 m2 Reason For Study: MRSA Bactermia Ordering Physician: ALIZA KENYON Performed By: Hien Dallas Interpretation Summary The left ventricular ejection fraction is within normal limits. LV diastolic function not assessed. The left ventricle is grossly normal size. Wall motion cannot be accurately commented on, but no definite regional wall motion abnormalities noted. The right ventricle is mildly dilated. The right ventricular systolic function is normal. The right atrium is normal in size The left atrial size is normal. There is a trace amount of mitral regurgitation There is no mitral valve stenosis. There is no aortic valve stenosis There is a trace amount of aortic regurgitation There is a trace or physiologic amount of tricuspid regurgitation There is no tricuspid stenosis. The aortic root is not well visualized. The inferior vena cava was not well visualized Minimal pericardial effusion. No definite vegetations noted but if clinical suspicion is high, then consider RENE and multiple blood cultures. Left Ventricle The left ventricle is grossly normal size. The left ventricular ejection fraction is within normal limits. LV diastolic function not assessed. Wall motion cannot be accurately commented on, but no definite regional wall motion abnormalities noted. Right Ventricle The right ventricle is mildly dilated. There is normal right ventricular wall thickness. The right ventricular systolic function is normal. Atria The right atrium is normal in size. The left atrial size is normal. Interarterial septum not well visualized and not well dopplered. Cannot comment on ASD/PFO presence. Mitral Valve The mitral valve leaflets are sclerotic, but show no functional abnormalities. There is no mitral valve stenosis. There is a trace amount of mitral regurgitation. Aortic Valve The aortic valve is sclerotic, but shows no functional abnormality. There is no aortic valve stenosis. There is a trace amount of aortic regurgitation. Tricuspid Valve The tricuspid valve is not well visualized secondary to technical limitations. There is no tricuspid stenosis. There is a trace or physiologic amount of tricuspid regurgitation. Pulmonic Valve The pulmonic valve is not well visualized. Great Vessels The aortic root is not well visualized. The inferior vena cava was not well visualized. Effusions Minimal pericardial effusion. Incidental Findings No definite vegetations noted but if clinical suspicion is high, then consider RENE and multiple blood cultures. : ALIZA KENYON > Marika Martinez
[2016-10-07] MEDS: HYDROMORPHONE HCL INJ/PF 2 MG/ML AMPULE IV PRN ×5 (01:40→21:48)
[2016-10-07] MEDS: HEPARIN SOD (PORCINE) 5,000 UNIT/ML 1 ML SYRINGE SUBCUT SCH ×3 (05:38→21:48)
[2016-10-07 06:37] LABS: HEMOGLOBIN 8.7 g/dL (13.5-17.0); HGB HCT DIFFERENCE -0.9; MEAN CORPUSCULAR HEMOGLOBIN 23.7 pg (27.0-33.4); MEAN CORPUSCULAR VOLUME 74 fl (80-97); RED BLOOD COUNT 3.65 10^6/uL (4.35-5.55); RED CELL DISTRIBUTION WIDTH 19.7 % (11.5-14.0); WHITE BLOOD COUNT 29.8 10^3/uL (4.0-10.5)
[2016-10-07 06:39] LABS: ANION GAP 12 (5-19); BLOOD UREA NITROGEN 16 mg/dL (7-20); CALCIUM 10.1 mg/dL (8.4-10.2); CARBON DIOXIDE 27 mmol/L (22-30); CHLORIDE 98 mmol/L (98-107); CREATININE RESULT 1.12 mg/dL (0.52-1.25); GLUCOSE 59 mg/dL (75-110); MAGNESIUM 1.6 mg/dL (1.6-2.3); POTASSIUM 3.8 mmol/L (3.6-5.0); SODIUM 137.1 mmol/L (137-145)
[2016-10-07 06:53] LABS: BASOPHILS % (MANUAL) 1 % (0-2); EOSINOPHILS % (MANUAL) 1 % (0-6); LYMPHOCYTES % (MANUAL) 10 % (13-45); TOTAL CELLS COUNTED 100
[2016-10-07 07:04] LABS: TOXIC GRANULATION SLIGHT
[2016-10-07 07:05] LABS: ANISOCYTOSIS 2+; MICROCYTOSIS 1+; POIKILOCYTOSIS 2+; POLYCHROMASIA SLIGHT; TARGET CELLS 2+; TEAR DROP CELLS SLIGHT; TOXIC VACUOLATION PRESENT
[2016-10-07] MEDS: VANCOMYCIN HCL 1,000 MG in DEXTROSE 5%-WATER 250 ML IV SCH ×2 (09:03→21:52)
[2016-10-07] MEDS: IRON SUCROSE COMPLEX INJ/PF 100 MG/5 ML SDV IV SCH (09:04)
[2016-10-07] MEDS: DIPHENHYDRAMINE HCL 50 MG/ML VIAL IV PRN ×3 (09:05→23:47)
[2016-10-07] MEDS: AMINO ACIDS 5%/D25W 1,000 ML IV PRN (12:27)
--- NOTE | 2016-10-07 13:49 | PDOC PROGRESS REPORT ---
Subjective Progress Note for:: 10/07/16 Subjective:: Pt seen eariler this morning. Pt states that he is doing well. Pt states that he is feeling good today. Pt states that he has been up walking around the hospital. Physical Exam Vital Signs: Temp Pulse Resp BP Pulse Ox 98.1 F 78 18 107/74 100 10/07/16 11:53 10/07/16 11:53 10/07/16 11:53 10/07/16 11:53 10/07/16 11:53 Intake & Output 10/06/16 10/07/16 10/08/16 06:59 06:59 06:59 Intake Total 2739 775 Output Total 1675 2250 Balance 1064 -1475 Weight 59.1 kg General appearance: PRESENT: no acute distress, well-developed, well-nourished Head exam: PRESENT: atraumatic, normocephalic Eye exam: PRESENT: conjunctiva pink, EOMI. ABSENT: scleral icterus Ear exam: PRESENT: normal external ear exam Mouth exam: PRESENT: moist Neck exam: ABSENT: carotid bruit, JVD, lymphadenopathy, thyromegaly Respiratory exam: PRESENT: clear to auscultation ulisa. ABSENT: rales, rhonchi, wheezes Cardiovascular exam: PRESENT: RRR. ABSENT: diastolic murmur, rubs, systolic murmur GI/Abdominal exam: PRESENT: normal bowel sounds, soft, other - osteomy bag in place.. ABSENT: distended, guarding, mass, organolmegaly, rebound, tenderness Extremities exam: PRESENT: full ROM. ABSENT: calf tenderness, clubbing, pedal edema Neurological exam: PRESENT: alert, awake, oriented to person, oriented to place , oriented to time, oriented to situation, CN II-XII grossly intact. ABSENT: motor sensory deficit Skin exam: PRESENT: dry, warm Results Laboratory Results: 10/07/16 05:46 10/07/16 05:46 10/04/16 10/06/16 10/07/16 10:27 05:15 05:46 WBC 29.8 H RBC 3.65 L Hgb 8.7 L Hct 27.0 L MCV 74 L MCH 23.7 L MCHC 32.0 RDW 19.7 H Plt Count 819 H Seg Neutrophils % Not Reportable Lymphocytes % Not Reportable Monocytes % Not Reportable Eosinophils % Not Reportable Basophils % Not Reportable Absolute Neutrophils Not Reportable Absolute Lymphocytes Not Reportable Absolute Monocytes Not Reportable Absolute Eosinophils Not Reportable Absolute Basophils Not Reportable Sodium Potassium Chloride Carbon Dioxide Anion Gap BUN Creatinine Est GFR ( Amer) Est GFR (Non-Af Amer) Glucose Calcium Magnesium Transferrin 296 Triglycerides 73 10/07/16 05:46 WBC RBC Hgb Hct MCV MCH MCHC RDW Plt Count Seg Neutrophils % Lymphocytes % Monocytes % Eosinophils % Basophils % Absolute Neutrophils Absolute Lymphocytes Absolute Monocytes Absolute Eosinophils Absolute Basophils Sodium 137.1 Potassium 3.8 Chloride 98 Carbon Dioxide 27 Anion Gap 12 BUN 16 Creatinine 1.12 Est GFR ( Amer) > 60 Est GFR (Non-Af Amer) > 60 Glucose 59 L Calcium 10.1 Magnesium 1.6 Transferrin Triglycerides 10/05/16 09:05 Clean Catch Midstream Urine Culture - Final NO GROWTH 2 DAYS Impressions: KUB X-Ray 09/23/16 17:12 IMPRESSION: Tube placement as described. Chest X-Ray 09/25/16 07:39 IMPRESSION: Minimal bibasilar bandlike atelectasis Abdomen/Pelvis CT 09/27/16 00:00 IMPRESSION: Postsurgical changes as noted above. Multiple thick-walled fluid collections are identified which were present on the previous study and do not appear to represent distended bowel loops. Again the lack of oral contrast makes exact delineation somewhat difficult. There are air and fluid distended small bowel loops consistent with a small bowel obstruction. Clinical correlation is recommended. Other findings as noted above Chest CT 09/27/16 00:00 IMPRESSION: Minimal linear densities in the left lung base which could represent atelectatic changes or minimal pneumonic infiltrate. Other findings as noted above Facial Bones CT 09/27/16 00:00 IMPRESSION: NG tube is identified. No other significant findings. Assessment & Plan - Diagnosis (1) Sepsis Qualifiers: Sepsis type: methicillin susceptible Staphylococcus aureus Qualified Code(s ): A41.01 - Sepsis due to Methicillin susceptible Staphylococcus aureus Is this a current diagnosis for this admission?: Yes Plan: 2 D Echo demonstrates no evidence of endocarditis. Pt's repeat blood culture and urine culture demonstrated no growth. (2) Small bowel obstruction Is this a current diagnosis for this admission?: Yes Plan: Pt with NGT in place. Will continue to monitor. (3) Anemia of chronic disease Is this a current diagnosis for this admission?: Yes Plan: With Iron Deficiency Anemia: IV Iron replacement. (4) Hypomagnesemia Is this a current diagnosis for this admission?: Yes Plan: Pt given additional magnesium. (5) Malnutrition of moderate degree Is this a current diagnosis for this admission?: Yes Plan: Continue TPN. (6) Colon cancer Qualifiers: Is this a current diagnosis for this admission?: Yes Plan: Stage 4 Colon Cancer with Small Bowel Obstruction: Pt scheduled for transfer to [facility] Oct 16. Will continue TPN. (7) Thrombocytosis Is this a current diagnosis for this admission?: Yes Plan: Will monitor. Pt on heparin. (8) DVT prophylaxis Is this a current diagnosis for this admission?: Yes Plan: Heparin - Time Time Spent with patient: 15-24 minutes
[2016-10-07] MEDS ORDERED: HYDROMORPHONE HCL INJ/PF 2 MG/ML AMPULE IV ONE (17:19)
[2016-10-07] MEDS ORDERED: HYDROMORPHONE HCL INJ/PF 2 MG/ML AMPULE ONE (17:21)
[2016-10-08] MEDS: HYDROMORPHONE HCL INJ/PF 2 MG/ML AMPULE IV PRN ×6 (01:43→22:30)
[2016-10-08] MEDS: AMINO ACIDS 5%/D25W 1,000 ML IV PRN (04:03)
[2016-10-08] MEDS: HEPARIN SOD (PORCINE) 5,000 UNIT/ML 1 ML SYRINGE SUBCUT SCH ×3 (06:11→21:46)
[2016-10-08] MEDS: VANCOMYCIN HCL 1,000 MG in DEXTROSE 5%-WATER 250 ML IV SCH ×2 (10:25→21:46)
[2016-10-08] MEDS: IRON SUCROSE COMPLEX INJ/PF 100 MG/5 ML SDV IV SCH (10:25)
--- NOTE | 2016-10-08 16:51 | PDOC PROGRESS REPORT ---
Subjective Progress Note for:: 10/08/16 Subjective:: Patient seen earlier this morning. Patient states that he is doing well states that he has no complaints. Physical Exam Vital Signs: Temp Pulse Resp BP Pulse Ox 98.4 F 80 17 120/83 99 10/08/16 07:59 10/08/16 07:59 10/08/16 07:59 10/08/16 07:59 10/08/16 07:59 Intake & Output 10/07/16 10/08/16 10/09/16 06:59 06:59 06:59 Intake Total 775 2546 Output Total 2250 1150 Balance -1475 1396 Weight 57.2 kg General appearance: PRESENT: no acute distress, thin, well-developed Head exam: PRESENT: atraumatic, normocephalic, other - NG tube in place Eye exam: PRESENT: conjunctiva pink, EOMI, PERRLA. ABSENT: scleral icterus Ear exam: PRESENT: normal external ear exam Mouth exam: PRESENT: moist, tongue midline Neck exam: ABSENT: carotid bruit, JVD, lymphadenopathy, thyromegaly Respiratory exam: PRESENT: clear to auscultation luisa. ABSENT: rales, rhonchi, wheezes Cardiovascular exam: PRESENT: RRR. ABSENT: diastolic murmur, rubs, systolic murmur Pulses: PRESENT: normal dorsalis pedis pul GI/Abdominal exam: PRESENT: normal bowel sounds, soft, other - Ostomy bag in place and NG tube in place. ABSENT: distended, guarding, mass, organolmegaly, rebound, tenderness Extremities exam: PRESENT: full ROM. ABSENT: calf tenderness, clubbing, pedal edema Musculoskeletal exam: PRESENT: full ROM Neurological exam: PRESENT: alert, awake, oriented to person, oriented to place , oriented to time, oriented to situation, CN II-XII grossly intact. ABSENT: motor sensory deficit Psychiatric exam: PRESENT: appropriate affect, normal mood. ABSENT: homicidal ideation, suicidal ideation Skin exam: PRESENT: dry, intact, warm. ABSENT: cyanosis, rash Results Laboratory Results: 10/07/16 05:46 10/07/16 05:46 Impressions: KUB X-Ray 09/23/16 17:12 IMPRESSION: Tube placement as described. Chest X-Ray 09/25/16 07:39 IMPRESSION: Minimal bibasilar bandlike atelectasis Abdomen/Pelvis CT 09/27/16 00:00 IMPRESSION: Postsurgical changes as noted above. Multiple thick-walled fluid collections are identified which were present on the previous study and do not appear to represent distended bowel loops. Again the lack of oral contrast makes exact delineation somewhat difficult. There are air and fluid distended small bowel loops consistent with a small bowel obstruction. Clinical correlation is recommended. Other findings as noted above Chest CT 09/27/16 00:00 IMPRESSION: Minimal linear densities in the left lung base which could represent atelectatic changes or minimal pneumonic infiltrate. Other findings as noted above Facial Bones CT 09/27/16 00:00 IMPRESSION: NG tube is identified. No other significant findings. Assessment & Plan - Diagnosis (1) Sepsis Qualifiers: Sepsis type: methicillin susceptible Staphylococcus aureus Qualified Code(s ): A41.01 - Sepsis due to Methicillin susceptible Staphylococcus aureus Is this a current diagnosis for this admission?: Yes Plan: 2 D Echo demonstrates no evidence of endocarditis. Pt's repeat blood culture and urine culture demonstrated no growth. Continue vancomycin. (2) Small bowel obstruction Is this a current diagnosis for this admission?: Yes Plan: Pt with NGT in place. Will continue to monitor. (3) Anemia of chronic disease Is this a current diagnosis for this admission?: Yes Plan: With Iron Deficiency Anemia: IV Iron replacement 3/. (4) Hypomagnesemia Is this a current diagnosis for this admission?: Yes Plan: Magnesium increased in TPN (5) Malnutrition of moderate degree Is this a current diagnosis for this admission?: Yes Plan: Continue TPN. (6) Colon cancer Qualifiers: Is this a current diagnosis for this admission?: Yes Plan: Stage 4 Colon Cancer with Small Bowel Obstruction: Pt scheduled for transfer to [facility] Oct 16. Will continue TPN. (7) Thrombocytosis Is this a current diagnosis for this admission?: Yes Plan: Will monitor. Pt on heparin. (8) Leukocytosis Qualifiers: Leukocytosis type: unspecified Qualified Code(s): D72.829 - Elevated white blood cell count, unspecified Is this a current diagnosis for this admission?: Yes Plan: Multifactorial Secondary to Colon Cancer and MRSA Bacteremia: Will continue to monitor. (9) DVT prophylaxis Is this a current diagnosis for this admission?: Yes - Time Time Spent with patient: 15-24 minutes
[2016-10-08] MEDS: DIPHENHYDRAMINE HCL 50 MG/ML VIAL IV PRN (20:40)
[2016-10-09] MEDS: HYDROMORPHONE HCL INJ/PF 2 MG/ML AMPULE IV PRN ×5 (03:39→20:05)
[2016-10-09] MEDS: HEPARIN SOD (PORCINE) 5,000 UNIT/ML 1 ML SYRINGE SUBCUT SCH ×3 (05:35→21:18)
[2016-10-09] MEDS: AMINO ACIDS 5%/D25W 1,000 ML IV PRN (11:18)
[2016-10-09] MEDS: FAT EMULSIONS 250 ML IV SCH (11:25)
[2016-10-09] MEDS: DIPHENHYDRAMINE HCL 50 MG/ML VIAL IV PRN ×2 (11:26→18:06)
[2016-10-09] MEDS: IRON SUCROSE COMPLEX INJ/PF 100 MG/5 ML SDV IV SCH (11:26)
[2016-10-09] MEDS: VANCOMYCIN HCL 1,000 MG in DEXTROSE 5%-WATER 250 ML IV SCH ×2 (11:26→21:41)
[2016-10-09] MEDS: ONDANSETRON HCL INJ/PF 4 MG/2 ML SDV IV PRN (14:51)
--- NOTE | 2016-10-09 17:10 | PDOC PROGRESS REPORT ---
Subjective Progress Note for:: 10/09/16 Subjective:: Patient seen earlier today. Patient sitting up in bed asking for his benadryl. Patient states he is otherwise doing well and is waiting to be transferred for his procedure. He is sleeping well and denies any pain. Physical Exam Vital Signs: Temp Pulse Resp BP Pulse Ox 97.8 F 78 17 123/82 100 10/09/16 11:42 10/09/16 11:42 10/09/16 08:12 10/09/16 11:42 10/09/16 11:42 Intake & Output 10/08/16 10/09/16 10/10/16 06:59 06:59 06:59 Intake Total 2546 2500 Output Total 1150 5760 Balance 1396 -3260 Weight 57.2 kg 60.7 kg General appearance: PRESENT: no acute distress, thin Head exam: PRESENT: atraumatic Mouth exam: PRESENT: moist, neck supple Respiratory exam: PRESENT: clear to auscultation luisa Cardiovascular exam: PRESENT: RRR GI/Abdominal exam: PRESENT: other - disteneded with +BS colostomy in place with watery output Rectal exam: PRESENT: deferred Musculoskeletal exam: PRESENT: normal inspection Neurological exam: PRESENT: alert, altered, awake Psychiatric exam: PRESENT: appropriate affect Skin exam: PRESENT: warm Results Laboratory Results: 10/07/16 05:46 10/07/16 05:46 Impressions: KUB X-Ray 09/23/16 17:12 IMPRESSION: Tube placement as described. Chest X-Ray 09/25/16 07:39 IMPRESSION: Minimal bibasilar bandlike atelectasis Abdomen/Pelvis CT 09/27/16 00:00 IMPRESSION: Postsurgical changes as noted above. Multiple thick-walled fluid collections are identified which were present on the previous study and do not appear to represent distended bowel loops. Again the lack of oral contrast makes exact delineation somewhat difficult. There are air and fluid distended small bowel loops consistent with a small bowel obstruction. Clinical correlation is recommended. Other findings as noted above Chest CT 09/27/16 00:00 IMPRESSION: Minimal linear densities in the left lung base which could represent atelectatic changes or minimal pneumonic infiltrate. Other findings as noted above Facial Bones CT 09/27/16 00:00 IMPRESSION: NG tube is identified. No other significant findings. Assessment & Plan - Diagnosis (1) DVT prophylaxis Is this a current diagnosis for this admission?: Yes Plan: Continue with heparin sub Q Q 8. (2) Leukocytosis Qualifiers: Leukocytosis type: unspecified Qualified Code(s): D72.829 - Elevated white blood cell count, unspecified Is this a current diagnosis for this admission?: Yes Plan: Possibly reactive as patient has colon cancer, anemia. Patient also diagnosed with MRSA bacteremia on this admission but has been on vancomycin since 10/03. Repeat blood cultures are negative. Repeat echo shows no vegetations which would be indicative of endocarditits. Will continue to monitor. (3) Malnutrition of moderate degree Is this a current diagnosis for this admission?: Yes Plan: Due to colon cancer and SOB. Patient currently on TPN. (4) Colon cancer Qualifiers: Is this a current diagnosis for this admission?: Yes Plan: Stage 4 colon cancer with small bowel obstruction. Patient scheduled for transfer to [facility] on October 16. Will continue TPN and NPO status for now. (5) Hypomagnesemia Is this a current diagnosis for this admission?: Yes Plan: Resolved. Patient receiving replacement in his TPN. Will follow up lab. (6) Sepsis Qualifiers: Sepsis type: methicillin susceptible Staphylococcus aureus Qualified Code(s ): A41.01 - Sepsis due to Methicillin susceptible Staphylococcus aureus Is this a current diagnosis for this admission?: Yes Plan: No clear source of infection. 2D echo demonstrated no evidence of endocarditis. Repeat blood and urine cultures are negative thus far. Patient on vancomycin since 10/03. 7 days of vancomycin should be adequate treatment. (7) Small bowel obstruction Is this a current diagnosis for this admission?: Yes Plan: Nasogastric tube still in place. Patient NPO. Continue TPN. Plan for transfer to [facility] for surgical intervention. (8) Thrombocytosis Is this a current diagnosis for this admission?: Yes Plan: Possibly reactive due to anemia, cancer and infection. Appears to be trending down. Will continue to monitor. Patient is currently on heparin. (9) Anemia of chronic disease Is this a current diagnosis for this admission?: Yes Plan: Anemia possibly due to colon cancer. Patient currently receiving iron infusion. Today is dose 4/5. - Time Time Spent with patient: Less than 15 minutes Anticipated discharge: [facility] Within: Other - Transfer to [facility] on 10/16 for sugerical procedure.
[2016-10-09] MEDS: NORMAL SALINE 10 ML SDV (SCHEDULED) IV SCH (21:18)
[2016-10-10] MEDS: HYDROMORPHONE HCL INJ/PF 2 MG/ML AMPULE IV PRN ×7 (00:04→23:56)
[2016-10-10] MEDS: DIPHENHYDRAMINE HCL 50 MG/ML VIAL IV PRN ×4 (00:04→19:58)
[2016-10-10] MEDS: AMINO ACIDS 5%/D25W 1,000 ML IV PRN ×2 (02:58→19:58)
[2016-10-10] MEDS: HEPARIN SOD (PORCINE) 5,000 UNIT/ML 1 ML SYRINGE SUBCUT SCH ×3 (06:20→22:17)
[2016-10-10 06:49] LABS: ALANINE AMINOTRANSFERASE 54 U/L (21-72); ALBUMIN 2.8 g/dL (3.5-5.0); ALKALINE PHOSPHATASE 218 U/L (38-126); ANION GAP 13 (5-19); ASPARTATE AMINO TRANSFERASE 37 U/L (17-59); BILIRUBIN,DIRECT 0.4 mg/dL (0.0-0.4); BILIRUBIN,TOTAL 0.5 mg/dL (0.2-1.3); BLOOD UREA NITROGEN 20 mg/dL (7-20); CALCIUM 9.6 mg/dL (8.4-10.2); CARBON DIOXIDE 25 mmol/L (22-30); CHLORIDE 98 mmol/L (98-107); CREATININE RESULT 1.09 mg/dL (0.52-1.25); GLUCOSE 73 mg/dL (75-110); POTASSIUM 3.8 mmol/L (3.6-5.0); SODIUM 135.6 mmol/L (137-145); TOTAL PROTEIN 7.7 g/dL (6.3-8.2)
[2016-10-10 07:22] LABS: HEMATOCRIT 25.9 % (37.9-51.0); HEMOGLOBIN 8.2 g/dL (13.5-17.0); HGB HCT DIFFERENCE -1.3; MEAN CORPUSCULAR HEMOGLOBIN 23.6 pg (27.0-33.4); MEAN CORPUSCULAR HGB CONC 31.9 g/dL (32.0-36.0); MEAN CORPUSCULAR VOLUME 74 fl (80-97); RED BLOOD COUNT 3.49 10^6/uL (4.35-5.55); RED CELL DISTRIBUTION WIDTH 20.2 % (11.5-14.0); WHITE BLOOD COUNT 28.2 10^3/uL (4.0-10.5)
[2016-10-10 07:33] LABS: BASOPHILS % (MANUAL) 0 % (0-2); EOSINOPHILS % (MANUAL) 1 % (0-6); HYPOCHROMASIA 2+; LYMPHOCYTES % (MANUAL) 4 % (13-45); MICROCYTOSIS 2+; POLYCHROMASIA 1+; ROULEAUX 2+; TARGET CELLS 2+; TOTAL CELLS COUNTED 100; TOXIC GRANULATION 1+; TOXIC VACUOLATION PRESENT
[2016-10-10] MEDS: NORMAL SALINE 10 ML SDV (SCHEDULED) IV SCH ×2 (11:08→22:17)
[2016-10-10] MEDS: VANCOMYCIN HCL 1,000 MG in DEXTROSE 5%-WATER 250 ML IV SCH (11:09)
--- NOTE | 2016-10-10 17:05 | PDOC PROGRESS REPORT ---
Subjective Progress Note for:: 10/10/16 Subjective:: Patient seen earlier today. She states he is doing well who she is waiting to be transferred to outside facility for a surgical procedure. Patient has no complaints at this time. Physical Exam Vital Signs: Temp Pulse Resp BP Pulse Ox 98.5 F 77 16 113/77 97 10/10/16 08:12 10/10/16 08:12 10/10/16 08:12 10/10/16 08:12 10/10/16 08:12 Intake & Output 10/09/16 10/10/16 10/11/16 06:59 06:59 06:59 Intake Total 2500 3325 Output Total 5760 2025 Balance -3260 1300 Weight 60.7 kg 60.8 kg General appearance: PRESENT: no acute distress, thin Head exam: PRESENT: atraumatic Mouth exam: PRESENT: moist Respiratory exam: PRESENT: clear to auscultation luisa Cardiovascular exam: PRESENT: RRR GI/Abdominal exam: PRESENT: soft - iliostomy in place with watery output. Positive bowel sounds. Rectal exam: PRESENT: deferred Musculoskeletal exam: PRESENT: ambulatory, full ROM Neurological exam: PRESENT: alert, awake Psychiatric exam: PRESENT: normal mood Results Laboratory Results: 10/10/16 06:15 10/10/16 06:15 10/10/16 10/10/16 06:15 06:15 WBC 28.2 H RBC 3.49 L Hgb 8.2 L Hct 25.9 L MCV 74 L MCH 23.6 L MCHC 31.9 L RDW 20.2 H Plt Count 856 H Seg Neutrophils % Not Reportable Lymphocytes % Not Reportable Monocytes % Not Reportable Eosinophils % Not Reportable Basophils % Not Reportable Absolute Neutrophils Not Reportable Absolute Lymphocytes Not Reportable Absolute Monocytes Not Reportable Absolute Eosinophils Not Reportable Absolute Basophils Not Reportable Sodium 135.6 L Potassium 3.8 Chloride 98 Carbon Dioxide 25 Anion Gap 13 BUN 20 Creatinine 1.09 Est GFR ( Amer) > 60 Est GFR (Non-Af Amer) > 60 Glucose 73 L Calcium 9.6 Total Bilirubin 0.5 AST 37 ALT 54 Alkaline Phosphatase 218 H Total Protein 7.7 Albumin 2.8 L 10/05/16 10:30 Blood Blood Culture - Final NO GROWTH IN 5 DAYS 10/05/16 08:19 Blood Blood Culture - Final NO GROWTH IN 5 DAYS Impressions: KUB X-Ray 09/23/16 17:12 IMPRESSION: Tube placement as described. Chest X-Ray 09/25/16 07:39 IMPRESSION: Minimal bibasilar bandlike atelectasis Abdomen/Pelvis CT 09/27/16 00:00 IMPRESSION: Postsurgical changes as noted above. Multiple thick-walled fluid collections are identified which were present on the previous study and do not appear to represent distended bowel loops. Again the lack of oral contrast makes exact delineation somewhat difficult. There are air and fluid distended small bowel loops consistent with a small bowel obstruction. Clinical correlation is recommended. Other findings as noted above Chest CT 09/27/16 00:00 IMPRESSION: Minimal linear densities in the left lung base which could represent atelectatic changes or minimal pneumonic infiltrate. Other findings as noted above Facial Bones CT 09/27/16 00:00 IMPRESSION: NG tube is identified. No other significant findings. Assessment & Plan - Diagnosis (1) Colon cancer Qualifiers: Is this a current diagnosis for this admission?: Yes (2) Sepsis Qualifiers: Sepsis type: methicillin susceptible Staphylococcus aureus Qualified Code(s ): A41.01 - Sepsis due to Methicillin susceptible Staphylococcus aureus Is this a current diagnosis for this admission?: Yes Plan: No clear source of infection. 2D echo demonstrated no evidence of endocarditis. Repeat blood and urine cultures are negative thus far. Patient on vancomycin since 10/03. 7 days of vancomycin should be adequate treatment. (3) Leukocytosis Qualifiers: Leukocytosis type: unspecified Qualified Code(s): D72.829 - Elevated white blood cell count, unspecified Is this a current diagnosis for this admission?: Yes Plan: Most likely eactive as patient has colon cancer, anemia. Patient also diagnosed with MRSA bacteremia on this admission but has been on vancomycin since 10/03. Repeat blood cultures are negative. Repeat echo shows no vegetations which would be indicative of endocarditits. Will continue to monitor. (4) Malnutrition of moderate degree Is this a current diagnosis for this admission?: Yes Plan: Due to colon cancer and SOB. Continue TPN. (5) Hypomagnesemia Is this a current diagnosis for this admission?: Yes Plan: Resolved. Magnesium in TPN. (6) Small bowel obstruction Is this a current diagnosis for this admission?: Yes Plan: Nasogastric tube still in place. Patient NPO. Continue TPN. Plan for transfer to [facility] for surgical intervention on 10/16. (7) Thrombocytosis Is this a current diagnosis for this admission?: Yes Plan: Possibly reactive due to anemia, cancer and infection. Appears to be trending down. Will continue to monitor. Patient is currently on heparin. (8) Anemia of chronic disease Is this a current diagnosis for this admission?: Yes Plan: Anemia possibly due to colon cancer. Patient currently receiving iron infusion. Today is dose 5/5. (9) DVT prophylaxis Is this a current diagnosis for this admission?: Yes Plan: Continue with heparin sub Q Q 8. - Time Time Spent with patient: Less than 15 minutes Anticipated discharge: [facility] Within: Other
[2016-10-11] MEDS: DIPHENHYDRAMINE HCL 50 MG/ML VIAL IV PRN ×4 (02:25→23:45)
[2016-10-11] MEDS: HYDROMORPHONE HCL INJ/PF 2 MG/ML AMPULE IV PRN ×6 (03:51→23:45)
[2016-10-11] MEDS: HEPARIN SOD (PORCINE) 5,000 UNIT/ML 1 ML SYRINGE SUBCUT SCH ×3 (06:24→22:15)
[2016-10-11] MEDS: NORMAL SALINE 10 ML SDV (SCHEDULED) IV SCH ×2 (11:15→22:15)
[2016-10-11] MEDS: AMINO ACIDS 5%/D25W 1,000 ML IV PRN (13:40)
--- NOTE | 2016-10-11 17:45 | PDOC PROGRESS REPORT ---
Subjective Progress Note for:: 10/11/16 Subjective:: Patient seen earlier today. Patient is complaining about pain and asking about his labs. Physical Exam Vital Signs: Temp Pulse Resp BP Pulse Ox 98.7 F 77 12 107/74 99 10/11/16 12:31 10/11/16 12:31 10/11/16 12:31 10/11/16 12:31 10/11/16 12:31 Intake & Output 10/10/16 10/11/16 10/12/16 06:59 06:59 06:59 Intake Total 3325 2250 Output Total 2024 1999 Balance 1300 250 Weight 60.8 kg 60.8 kg General appearance: PRESENT: mild distress Head exam: PRESENT: normocephalic Eye exam: PRESENT: EOMI Neck exam: PRESENT: full ROM Respiratory exam: PRESENT: clear to auscultation luisa Cardiovascular exam: PRESENT: RRR GI/Abdominal exam: PRESENT: hyperactive bowel sounds, other - non tender iliostomy with output Rectal exam: PRESENT: deferred Neurological exam: PRESENT: alert, awake, oriented to person, oriented to place Psychiatric exam: PRESENT: normal mood Results Laboratory Results: 10/10/16 06:15 10/10/16 06:15 Impressions: KUB X-Ray 09/23/16 17:12 IMPRESSION: Tube placement as described. Chest X-Ray 09/25/16 07:39 IMPRESSION: Minimal bibasilar bandlike atelectasis Abdomen/Pelvis CT 09/27/16 00:00 IMPRESSION: Postsurgical changes as noted above. Multiple thick-walled fluid collections are identified which were present on the previous study and do not appear to represent distended bowel loops. Again the lack of oral contrast makes exact delineation somewhat difficult. There are air and fluid distended small bowel loops consistent with a small bowel obstruction. Clinical correlation is recommended. Other findings as noted above Chest CT 09/27/16 00:00 IMPRESSION: Minimal linear densities in the left lung base which could represent atelectatic changes or minimal pneumonic infiltrate. Other findings as noted above Facial Bones CT 09/27/16 00:00 IMPRESSION: NG tube is identified. No other significant findings. Assessment & Plan - Diagnosis (1) Colon cancer Qualifiers: Is this a current diagnosis for this admission?: Yes Plan: Stage 4 colon cancer with small bowel obstruction. Patient scheduled for transfer to [facility] on October 16. Continue TPN and NPO status for now. (2) Sepsis Qualifiers: Sepsis type: methicillin susceptible Staphylococcus aureus Qualified Code(s ): A41.01 - Sepsis due to Methicillin susceptible Staphylococcus aureus Is this a current diagnosis for this admission?: Yes Plan: No clear source of infection. 2D echo demonstrated no evidence of endocarditis. Repeat blood and urine cultures are negative thus far. Patient on vancomycin since 10/03. 7 days of vancomycin should be adequate treatment. (3) Leukocytosis Qualifiers: Leukocytosis type: unspecified Qualified Code(s): D72.829 - Elevated white blood cell count, unspecified Is this a current diagnosis for this admission?: Yes Plan: Most likely eactive as patient has colon cancer, anemia. Patient also diagnosed with MRSA bacteremia on this admission but has been on vancomycin since 10/03. Repeat blood cultures are negative. Repeat echo shows no vegetations which would be indicative of endocarditits. Will continue to monitor. (4) Malnutrition of moderate degree Is this a current diagnosis for this admission?: Yes Plan: Due to colon cancer and SOB. Continue TPN. (5) Hypomagnesemia Is this a current diagnosis for this admission?: Yes Plan: Resolved. Magnesium in TPN. (6) Small bowel obstruction Is this a current diagnosis for this admission?: Yes Plan: Nasogastric tube still in place. Patient NPO. Continue TPN. Plan for transfer to [facility] for surgical intervention on 10/16. (7) Thrombocytosis Is this a current diagnosis for this admission?: Yes Plan: Possibly reactive due to anemia, cancer and infection. Appears to be trending down. Will continue to monitor. Patient is currently on heparin. (8) Anemia of chronic disease Is this a current diagnosis for this admission?: Yes Plan: Anemia possibly due to colon cancer. Patient currently receiving iron infusion. Received doses. Will repeat iron studies. (9) DVT prophylaxis Is this a current diagnosis for this admission?: Yes Plan: Continue with heparin sub Q Q 8. - Time Time Spent with patient: Less than 15 minutes Anticipated discharge: [facility] Within: Other - Transfer to [facility] on 10/16
[2016-10-12] MEDS: HYDROMORPHONE HCL INJ/PF 2 MG/ML AMPULE IV PRN ×5 (03:49→23:55)
[2016-10-12] MEDS: AMINO ACIDS 5%/D25W 1,000 ML IV PRN ×2 (03:49→19:52)
[2016-10-12] MEDS: DIPHENHYDRAMINE HCL 50 MG/ML VIAL IV PRN ×4 (06:03→23:55)
[2016-10-12] MEDS: HEPARIN SOD (PORCINE) 5,000 UNIT/ML 1 ML SYRINGE SUBCUT SCH ×3 (06:03→21:21)
[2016-10-12] MEDS: NORMAL SALINE 10 ML SDV (SCHEDULED) IV SCH ×2 (10:14→21:23)
[2016-10-12] MEDS: NORMAL SALINE 10 ML SDV (AFTER EACH USE) IV PRN ×3 (11:48→17:52)
[2016-10-12] MEDS: ONDANSETRON HCL INJ/PF 4 MG/2 ML SDV IV PRN (14:27)
[2016-10-13] MEDS: HYDROMORPHONE HCL INJ/PF 2 MG/ML AMPULE IV PRN ×6 (03:58→23:53)
[2016-10-13 04:51] LABS: HEMATOCRIT 26.9 % (37.9-51.0); HEMOGLOBIN 8.6 g/dL (13.5-17.0); HGB HCT DIFFERENCE -1.1; MEAN CORPUSCULAR HEMOGLOBIN 23.8 pg (27.0-33.4); MEAN CORPUSCULAR HGB CONC 31.8 g/dL (32.0-36.0); MEAN CORPUSCULAR VOLUME 75 fl (80-97); RED BLOOD COUNT 3.59 10^6/uL (4.35-5.55); RED CELL DISTRIBUTION WIDTH 20.7 % (11.5-14.0); WHITE BLOOD COUNT 24.2 10^3/uL (4.0-10.5)
[2016-10-13 05:02] LABS: ALANINE AMINOTRANSFERASE 96 U/L (21-72); ALKALINE PHOSPHATASE 283 U/L (38-126); ANION GAP 12 (5-19); ASPARTATE AMINO TRANSFERASE 83 U/L (17-59); BILIRUBIN,DIRECT 0.5 mg/dL (0.0-0.4); BILIRUBIN,TOTAL 0.5 mg/dL (0.2-1.3); BLOOD UREA NITROGEN 20 mg/dL (7-20); CALCIUM 9.8 mg/dL (8.4-10.2); CARBON DIOXIDE 29 mmol/L (22-30); CHLORIDE 96 mmol/L (98-107); CREATININE RESULT 1.04 mg/dL (0.52-1.25); GLUCOSE 68 mg/dL (75-110); MAGNESIUM 2.2 mg/dL (1.6-2.3); PHOSPHORUS 6.9 mg/dL (2.5-4.5); POTASSIUM 4.2 mmol/L (3.6-5.0); SODIUM 137.2 mmol/L (137-145); TOTAL PROTEIN 8.3 g/dL (6.3-8.2); TRIGLYCERIDES 82 mg/dL (<150)
[2016-10-13 05:11] LABS: PREALBUMIN 12.2 mg/dL (17.6-36.0)
[2016-10-13 05:12] LABS: PROTHROMBIN TIME 15.7 SEC (11.4-15.4)
[2016-10-13] MEDS: HEPARIN SOD (PORCINE) 5,000 UNIT/ML 1 ML SYRINGE SUBCUT SCH ×3 (06:23→21:58)
[2016-10-13] MEDS: DIPHENHYDRAMINE HCL 50 MG/ML VIAL IV PRN (06:23)
--- NOTE | 2016-10-13 08:06 | PDOC PROGRESS REPORT ---
Subjective Progress Note for:: 10/12/16 Subjective:: Resting at this time. However there is noted that patient's pain medication was no longer controlling his discomfort. Adjustments were made to his medication. Physical Exam Vital Signs: Temp Pulse Resp BP Pulse Ox 97.8 F 76 17 109/75 98 10/12/16 08:00 10/12/16 08:00 10/12/16 08:00 10/12/16 08:00 10/12/16 08:00 Intake & Output 10/11/16 10/12/16 10/13/16 06:59 06:59 06:59 Intake Total 2249 2150 Output Total 1999 2124 Balance 250 25 Weight 60.8 kg 59.4 kg General appearance: PRESENT: no acute distress, thin Head exam: PRESENT: normocephalic Respiratory exam: PRESENT: clear to auscultation luisa Cardiovascular exam: PRESENT: RRR GI/Abdominal exam: PRESENT: hypoactive bowel sounds - The ostomy in place with output abdomen nontender on palpation Rectal exam: PRESENT: deferred Extremities exam: PRESENT: full ROM Musculoskeletal exam: PRESENT: ambulatory Neurological exam: PRESENT: CN II-XII grossly intact Psychiatric exam: PRESENT: normal mood Skin exam: PRESENT: warm Results Laboratory Results: 10/10/16 06:15 10/10/16 06:15 Impressions: KUB X-Ray 09/23/16 17:12 IMPRESSION: Tube placement as described. Chest X-Ray 09/25/16 07:39 IMPRESSION: Minimal bibasilar bandlike atelectasis Abdomen/Pelvis CT 09/27/16 00:00 IMPRESSION: Postsurgical changes as noted above. Multiple thick-walled fluid collections are identified which were present on the previous study and do not appear to represent distended bowel loops. Again the lack of oral contrast makes exact delineation somewhat difficult. There are air and fluid distended small bowel loops consistent with a small bowel obstruction. Clinical correlation is recommended. Other findings as noted above Chest CT 09/27/16 00:00 IMPRESSION: Minimal linear densities in the left lung base which could represent atelectatic changes or minimal pneumonic infiltrate. Other findings as noted above Facial Bones CT 09/27/16 00:00 IMPRESSION: NG tube is identified. No other significant findings. Assessment & Plan - Diagnosis (1) Colon cancer Qualifiers: Is this a current diagnosis for this admission?: Yes Plan: Stage 4 colon cancer with small bowel obstruction. Patient scheduled for transfer to [facility] on October 16. Continue TPN and NPO status for now. (2) Sepsis Qualifiers: Sepsis type: methicillin susceptible Staphylococcus aureus Qualified Code(s ): A41.01 - Sepsis due to Methicillin susceptible Staphylococcus aureus Is this a current diagnosis for this admission?: Yes Plan: No clear source of infection. 2D echo demonstrated no evidence of endocarditis. Repeat blood and urine cultures are negative thus far. Patient on vancomycin since 10/03. 7 days of vancomycin should be adequate treatment. (3) Leukocytosis Qualifiers: Leukocytosis type: unspecified Qualified Code(s): D72.829 - Elevated white blood cell count, unspecified Is this a current diagnosis for this admission?: Yes Plan: Most likely eactive as patient has colon cancer, anemia. Patient also diagnosed with MRSA bacteremia on this admission but has been on vancomycin since 10/03. Repeat blood cultures are negative. Repeat echo shows no vegetations which would be indicative of endocarditits. Will continue to monitor. (4) Malnutrition of moderate degree Is this a current diagnosis for this admission?: Yes Plan: Due to colon cancer and SOB. Continue TPN. (5) Hypomagnesemia Is this a current diagnosis for this admission?: Yes Plan: Resolved. Magnesium in TPN. (6) Small bowel obstruction Is this a current diagnosis for this admission?: Yes Plan: Nasogastric tube still in place. Patient NPO. Continue TPN. Plan for transfer to [facility] for surgical intervention on 10/16. (7) Thrombocytosis Is this a current diagnosis for this admission?: Yes Plan: Possibly reactive due to anemia, cancer and infection. Appears to be trending down however still elevated. Will continue to monitor. Patient is currently on heparin. (8) Anemia of chronic disease Is this a current diagnosis for this admission?: Yes Plan: Anemia possibly due to colon cancer. Patient currently receiving iron infusion. Received 5 doses. Will try to limit unnecessary blood draws. (9) DVT prophylaxis Is this a current diagnosis for this admission?: Yes Plan: Continue with heparin sub Q Q 8. Discontinue SCDs - Time Time Spent with patient: Less than 15 minutes Anticipated discharge: [facility] - Patient to be transferred divided on 10/16 for surgery
[2016-10-13] MEDS: FAT EMULSIONS 250 ML IV SCH (10:13)
[2016-10-13] MEDS: NORMAL SALINE 10 ML SDV (SCHEDULED) IV SCH ×2 (10:15→21:58)
[2016-10-13] MEDS: AMINO ACIDS 5%/D25W 1,000 ML IV PRN (13:22)
--- NOTE | 2016-10-13 18:22 | PDOC PROGRESS REPORT ---
Subjective Progress Note for:: 10/13/16 Subjective:: Patient states he is feeling better today. Patient was vomiting yesterday and had pain. Patient states that pain medication adjustment is working. Physical Exam Vital Signs: Temp Pulse Resp BP Pulse Ox 98.0 F 76 18 114/82 98 10/13/16 08:14 10/13/16 08:14 10/13/16 08:14 10/13/16 08:14 10/13/16 08:14 Intake & Output 10/12/16 10/13/16 10/14/16 06:59 06:59 06:59 Intake Total 2150 1200 Output Total 2125 2100 Balance 25 -900 Weight 59.4 kg 59.8 kg General appearance: PRESENT: no acute distress, thin Head exam: PRESENT: normocephalic Eye exam: PRESENT: EOMI Respiratory exam: PRESENT: clear to auscultation luisa Cardiovascular exam: PRESENT: RRR GI/Abdominal exam: PRESENT: firm, normal bowel sounds, other - Ileostomy in place air in the bag stoma pink Rectal exam: PRESENT: deferred Extremities exam: ABSENT: pedal edema Musculoskeletal exam: PRESENT: ambulatory, full ROM Neurological exam: PRESENT: CN II-XII grossly intact Psychiatric exam: PRESENT: normal mood Skin exam: PRESENT: warm Results Laboratory Results: 10/13/16 04:00 10/13/16 04:00 10/13/16 10/13/16 04:00 04:00 WBC 24.2 H RBC 3.59 L Hgb 8.6 L Hct 26.9 L MCV 75 L MCH 23.8 L MCHC 31.8 L RDW 20.7 H Plt Count 836 H Sodium 137.2 Potassium 4.2 Chloride 96 L Carbon Dioxide 29 Anion Gap 12 BUN 20 Creatinine 1.04 Est GFR ( Amer) > 60 Est GFR (Non-Af Amer) > 60 Glucose 68 L Calcium 9.8 Phosphorus 6.9 H Magnesium 2.2 Total Bilirubin 0.5 AST 83 H ALT 96 H Alkaline Phosphatase 283 H Total Protein 8.3 H Albumin 3.0 L Prealbumin 12.2 L Triglycerides 82 Impressions: KUB X-Ray 09/23/16 17:12 IMPRESSION: Tube placement as described. Chest X-Ray 09/25/16 07:39 IMPRESSION: Minimal bibasilar bandlike atelectasis Abdomen/Pelvis CT 09/27/16 00:00 IMPRESSION: Postsurgical changes as noted above. Multiple thick-walled fluid collections are identified which were present on the previous study and do not appear to represent distended bowel loops. Again the lack of oral contrast makes exact delineation somewhat difficult. There are air and fluid distended small bowel loops consistent with a small bowel obstruction. Clinical correlation is recommended. Other findings as noted above Chest CT 09/27/16 00:00 IMPRESSION: Minimal linear densities in the left lung base which could represent atelectatic changes or minimal pneumonic infiltrate. Other findings as noted above Facial Bones CT 09/27/16 00:00 IMPRESSION: NG tube is identified. No other significant findings. Assessment & Plan - Diagnosis (1) Small bowel obstruction Is this a current diagnosis for this admission?: Yes Plan: Nasogastric tube still in place. Patient NPO. Continue TPN. Plan for transfer to [facility] for surgical intervention on 10/16. (2) Colon cancer Qualifiers: Is this a current diagnosis for this admission?: Yes Plan: Stage 4 colon cancer with small bowel obstruction. Patient scheduled for transfer to [facility] on October 16. Continue TPN and NPO status for now. (3) Leukocytosis Qualifiers: Leukocytosis type: unspecified Qualified Code(s): D72.829 - Elevated white blood cell count, unspecified Is this a current diagnosis for this admission?: Yes Plan: Most likely eactive as patient has colon cancer, anemia. Patient also diagnosed with MRSA bacteremia on this admission but has been on vancomycin since 10/03. Repeat blood cultures are negative. Repeat echo shows no vegetations which would be indicative of endocarditits. CBC mildly improved. Patient does not show any signs of acute infection. (4) Malnutrition of moderate degree Is this a current diagnosis for this admission?: Yes Plan: Due to colon cancer and SBO. Continue TPN. (5) Hypomagnesemia Is this a current diagnosis for this admission?: Yes Plan: Resolved. Magnesium in TPN. (6) Thrombocytosis Is this a current diagnosis for this admission?: Yes Plan: Possibly reactive due to anemia, cancer and infection. Appears to be trending down however still elevated. Will continue to monitor. Patient is currently on subcutaneous heparin. (7) Anemia of chronic disease Is this a current diagnosis for this admission?: Yes Plan: Anemia possibly due to colon cancer. Patient currently receiving iron infusion. Received 5 doses. Will try to limit unnecessary blood draws. (8) Gram-positive bacteremia Is this a current diagnosis for this admission?: Yes Plan: Patient treated for MRSA bacteremia. Repeat blood cultures have been negative. Source of infection was not found. Both cardiac echoes where negative for vegetations. Patient has completed 7 days of vancomycin. (9) Hyperphosphatemia Plan: Patient had hyperphosphatemia most likely due to supplementation and TPN. Of phosphate has been removed as his phosphate level is currently greater than 6. Will continue to monitor. (10) DVT prophylaxis Is this a current diagnosis for this admission?: Yes Plan: Continue with heparin sub Q Q 8. Discontinue SCDs - Time Time Spent with patient: 15-24 minutes Anticipated discharge: [facility]: within 48 hours
[2016-10-14] MEDS: HYDROMORPHONE HCL INJ/PF 2 MG/ML AMPULE IV PRN ×5 (03:59→23:54)
[2016-10-14] MEDS: AMINO ACIDS 5%/D25W 1,000 ML IV PRN ×2 (03:59→18:47)
[2016-10-14] MEDS: HEPARIN SOD (PORCINE) 5,000 UNIT/ML 1 ML SYRINGE SUBCUT SCH ×3 (06:06→22:20)
[2016-10-14] MEDS: DIPHENHYDRAMINE HCL 50 MG/ML VIAL IV PRN ×2 (06:06→18:03)
[2016-10-14] MEDS: NORMAL SALINE 10 ML SDV (SCHEDULED) IV SCH ×2 (10:13→22:20)
--- NOTE | 2016-10-14 17:39 | PDOC PROGRESS REPORT ---
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 He follows with Dr. Veronica Lewis in [place] who manages his cancer. He was transferred to our facility from [facility] for continued TPN, n.p.o. status and NG tube decompression. The patient is tentatively scheduled to have HIPEC performed by Dr. Villa on October 16, 2016. The patient does have a diverting colostomy in place. Today the patient is feeling well. He is a little frustrated as he is having some issues with his NG tube and he would like it repositioned. He has had no nausea or vomiting. He is tolerating TPN. He has had no fever or chills. No chest pain, shortness of breath or heart palpitations. No nausea, no abdominal pain. No urinary complaints. Physical Exam Vital Signs: Temp Pulse Resp BP Pulse Ox 97.9 F 81 18 111/85 100 10/14/16 07:58 10/14/16 07:58 10/14/16 07:58 10/14/16 07:58 10/14/16 07:58 Intake & Output 10/13/16 10/14/16 10/15/16 06:59 06:59 06:59 Intake Total 1200 1975 Output Total 2100 700 Balance -900 1275 Weight 59.8 kg 59.8 kg General appearance: PRESENT: no acute distress, cooperative, thin, other - Somewhat cachectic Mouth exam: PRESENT: moist, neck supple Respiratory exam: PRESENT: clear to auscultation luisa. ABSENT: rales, rhonchi, wheezes Cardiovascular exam: PRESENT: RRR, +S1, +S2. ABSENT: diastolic murmur, gallop, rubs, systolic murmur GI/Abdominal exam: PRESENT: firm, other - He does have a diverting colostomy in place. ABSENT: tenderness Rectal exam: PRESENT: deferred Extremities exam: ABSENT: calf tenderness, clubbing, pedal edema Neurological exam: PRESENT: alert, altered, awake, oriented to person, oriented to time, oriented to situation, CN II-XII grossly intact Psychiatric exam: PRESENT: appropriate affect Skin exam: PRESENT: dry, warm Results Laboratory Results: 10/13/16 04:00 10/13/16 04:00 Impressions: KUB X-Ray 08/08/17 17:12 IMPRESSION: Tube placement as described. Chest X-Ray 09/25/16 07:39 IMPRESSION: Minimal bibasilar bandlike atelectasis Abdomen/Pelvis CT 09/27/16 00:00 IMPRESSION: Postsurgical changes as noted above. Multiple thick-walled fluid collections are identified which were present on the previous study and do not appear to represent distended bowel loops. Again the lack of oral contrast makes exact delineation somewhat difficult. There are air and fluid distended small bowel loops consistent with a small bowel obstruction. Clinical correlation is recommended. Other findings as noted above Chest CT 09/27/16 00:00 IMPRESSION: Minimal linear densities in the left lung base which could represent atelectatic changes or minimal pneumonic infiltrate. Other findings as noted above Facial Bones CT 09/27/16 00:00 IMPRESSION: NG tube is identified. No other significant findings. Assessment & Plan - Diagnosis (1) Small bowel obstruction Plan: The patient continues with NG tube suction. He has continued TPN and he is tolerating it well. He will be transferred to [facility] on October 15 for surgery on the . (2) Colon cancer Qualifiers: Is this a current diagnosis for this admission?: Yes Plan: He has stage IV colon cancer followed by Dr. Veronica Lewis. He has a small bowel obstruction that will require surgery. Plan as above. (3) MRSA bacteremia Plan: It is unclear whether this was a true pathogen. It was present in 1 out of 2 bottles. Subsequent cultures have all remained negative. He continues on IV vancomycin. This is day #8 treatment. Patient has had 2 echocardiograms with no evidence of vegetation. (4) Leukocytosis Qualifiers: Leukocytosis type: unspecified Qualified Code(s): D72.829 - Elevated white blood cell count, unspecified Is this a current diagnosis for this admission?: Yes Plan: At this point I suspect this is reactive to ongoing small bowel obstruction. There is no evidence of acute infection. (5) Malnutrition of moderate degree Is this a current diagnosis for this admission?: Yes Plan: Secondary to colon cancer as well as ongoing small bowel obstruction. Continue TPN (6) Anemia Plan: He has a microcytic anemia likely related to his underlying malignancy. His hemoglobin is stable. (7) Thrombocytosis Is this a current diagnosis for this admission?: Yes Plan: Again this is likely reactive. (8) Hypomagnesemia Is this a current diagnosis for this admission?: Yes Plan: Repleted. Will check a level tomorrow. (9) Hyperphosphatemia Plan: This is likely due to TPN. The phosphorus was removed from his TPN and his level is improving. (10) Elevated liver function tests Plan: Of undetermined significance. Likely due to his acute illness. He did have a CT of the abdomen and pelvis that did not reveal any liver metastases. - Time Time Spent with patient: 25-34 minutes - Inpatient Certification Medical Necessity: Other - The patient was transferred back to us from [facility]. He will stay here until October 15 receiving TPN and NG tube decompression. He will be transferred back to their facility for surgery.
[2016-10-14] MEDS: ONDANSETRON HCL INJ/PF 4 MG/2 ML SDV IV PRN (23:55)
[2016-10-15] MEDS: HYDROMORPHONE HCL INJ/PF 2 MG/ML AMPULE IV PRN ×5 (03:55→20:16)
[2016-10-15] MEDS: HEPARIN SOD (PORCINE) 5,000 UNIT/ML 1 ML SYRINGE SUBCUT SCH ×3 (05:23→23:25)
[2016-10-15] MEDS: DIPHENHYDRAMINE HCL 50 MG/ML VIAL IV PRN (07:57)
[2016-10-15] MEDS ORDERED: VANCOMYCIN HCL 0 MG in DEXTROSE 5%-WATER 250 ML IV NR (09:00)
--- NOTE | 2016-10-15 09:36 | RADIOLOGY REPORT (SQ) ---
EXAM DESCRIPTION: CHEST SINGLE VIEW COMPLETED DATE/TIME: 10/15/2016 9:08 am REASON FOR STUDY: fever, probable aspiration COMPARISON: 09/25/2016 NUMBER OF VIEWS: One view. TECHNIQUE: Single frontal radiographic view of the chest acquired. LIMITATIONS: None. FINDINGS: LUNGS AND PLEURA: Linear atelectatic markings of the lung bases. Lungs otherwise clear. MEDIASTINUM AND HILAR STRUCTURES: No masses. Contour normal. HEART AND VASCULAR STRUCTURES: Heart normal in size. Normal vasculature. BONES: No acute findings. HARDWARE: Nasogastric tube extends below the diaphragm. Central catheter and port unchanged. OTHER: Continued slight elevation right hemidiaphragm. IMPRESSION: Linear basilar atelectasis. TECHNICAL DOCUMENTATION: JOB ID: [id number] [employer]- All Rights Reserved
[2016-10-15] MEDS: NORMAL SALINE 10 ML SDV (SCHEDULED) IV SCH ×2 (09:57→23:25)
--- NOTE | 2016-10-15 10:16 | PDOC PROGRESS REPORT ---
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 He has had issues with recurrent small bowel obstructions and really has no further traditional chemotherapy options left. He follows with Dr. Veronica Lewis in [place] who has managed his cancer to this point. He was transferred to our facility from [facility] for continued TPN, n.p.o. status and NG tube decompression. He had been evaluated by Dr Villa for a HIPEC procedure. She wished to optimize his nutritional status and his procedure had tentatively been scheduled for October 17, 2015. The patient has been here at our facility since September 23, 2016. He has remained on NG tube suction and has been receiving TPN via a PICC line. Unfortunately this morning the patient has spiked a high fever over 103. I spoke to Dr. Villa (pager number [phone]) this morning. Apparently there had been some confusion and the patient would not of been able to have this procedure performed later this week as we needed to contact her 1 week prior to the procedure so that she could make arrangements. Unfortunately this got lost in communication. In any event he would not be able to have his procedure this week due to the fact that he has developed fever and probable infection. At this point she would like to reschedule the procedure tentatively for October 30. In order for this procedure to be done on that date we would need to contact her no later than October 23 to confirm that he will be coming in to make the appropriate transportation arrangements and so she can book the OR and until culture results are finalized the chemotherapy team. If she is not contacted by October 23 they will not be able to do the procedure on October 30. Her recommendation was to place the patient on broad -spectrum antibiotics. She would like to give him a TPN holiday for 3-4 days but then resume. She has requested that we remove his PICC line as this is likely the source of the infection. We will follow up with culture results and appropriate antibiotic therapy. If he indeed has bacteremia when his blood cultures clear she would like to have the PICC line replaced. Today when I saw the patient he states he feels poorly. He has not had any shaking chills but states that he has a headache. He was unaware that he was running a fever. He has no sinus congestion or sore throat. He states he has developed a bit of a cough. He has not brought up any sputum. He has had no chest pain or heart palpitations. He has had nausea and has had an episode or 2 of vomiting this morning. He does not have any increased abdominal pain. He has dark liquid stool from his ostomy bag. Overall I discussed with the patient the new plan. I am going to give his mother's telephone number to Dr. Villa as she requested. He is agreeable to this. Again Dr. Villa stressed to the importance of contacting her at least 7 days prior to his procedure which would be no later than October 23, 2016. Physical Exam Vital Signs: Temp Pulse Resp BP Pulse Ox 103.1 F H 106 H 18 119/80 92 10/15/16 08:00 10/15/16 08:00 10/15/16 08:00 10/15/16 08:00 10/15/16 08:00 Intake & Output 10/14/16 10/15/16 10/16/16 06:59 06:59 06:59 Intake Total 1975 3986 Output Total 700 710 Balance 1275 3276 Weight 59.8 kg 59.8 kg General appearance: PRESENT: thin, other - The patient is significantly cachectic. The patient is somewhat diaphoretic and looks as if he feels extremely poorly. He is in no acute distress. Head exam: PRESENT: atraumatic, other - He has bitemporal wasting. Mouth exam: PRESENT: moist Respiratory exam: PRESENT: other - His lungs sound fairly clear. ABSENT: rales , wheezes - . This was an anterior exam and he had poor effort. Cardiovascular exam: PRESENT: RRR, +S1, +S2. ABSENT: diastolic murmur, gallop, rubs, systolic murmur GI/Abdominal exam: PRESENT: diminished bowel sounds, firm. ABSENT: tenderness Rectal exam: PRESENT: deferred Extremities exam: ABSENT: calf tenderness, clubbing, pedal edema Neurological exam: PRESENT: alert, awake, oriented to person, oriented to place , oriented to time, oriented to situation Skin exam: PRESENT: warm, other - Patient is quite warm to the touch. He is somewhat diaphoretic as well. Results Laboratory Results: 10/13/16 04:00 10/13/16 04:00 Impressions: KUB X-Ray 09/23/16 17:12 IMPRESSION: Tube placement as described. Abdomen/Pelvis CT 09/27/16 00:00 IMPRESSION: Postsurgical changes as noted above. Multiple thick-walled fluid collections are identified which were present on the previous study and do not appear to represent distended bowel loops. Again the lack of oral contrast makes exact delineation somewhat difficult. There are air and fluid distended small bowel loops consistent with a small bowel obstruction. Clinical correlation is recommended. Other findings as noted above Chest CT 09/27/16 00:00 IMPRESSION: Minimal linear densities in the left lung base which could represent atelectatic changes or minimal pneumonic infiltrate. Other findings as noted above Facial Bones CT 09/27/16 00:00 IMPRESSION: NG tube is identified. No other significant findings. Assessment & Plan - Diagnosis (1) Fever Plan: The patient has spiked an extremely high fever this morning. He has had a PICC line in place and has been receiving TPN via the PICC line for several weeks if not longer than that. This is likely a line infection although I cannot rule out a pneumonia as well. Blood cultures 2 have been drawn. We are also going to do fungal cultures as well. UA and urine culture will be obtained. Chest x- ray will be obtained as well. We will try to obtain a sputum culture if possible. At this point the patient's abdominal exam is benign and I do not believe he needs repeat imaging. Yesterday when I saw the patient I thought that he was receiving IV vancomycin for a positive blood culture at the beginning of this hospitalization but apparently this had been stopped. I am going to empirically place him back on IV vancomycin as well as imipenem for now. This will be the first day of treatment. We will follow up with culture results. Of note, the patient is somewhat tachycardic and his oxygen saturations are in the low 90s on room air. He is maintaining his blood pressure for now and currently does not have a septic picture. I will obtain a lactic acid as well for further evaluation. (2) Small bowel obstruction Plan: He has recurrent small bowel obstructions due to mucinous spread of his colon cancer. Currently in the process of trying to have a HIPEC procedure performed by Dr. Villa in [place]. The new tentative date for the procedure is October 30, 2016. The hospitalist team must contact Dr. Villa no later than October 23, 2016, so that she can make the appropriate arrangements. For now she would like him to have a TPN holiday for the next 3-4 days. His TPN can then be resumed. She would like to have his PICC line replaced as soon as his infectious issues cleared and it is felt safe. (3) Colon cancer Qualifiers: Is this a current diagnosis for this admission?: Yes Plan: He has stage IV colon cancer with mucinous spread followed by Dr. Veronica Lewis. He has a small bowel obstruction and is tentatively scheduled for HIPEC on Oct 30 [facility]. Plan as above. (4) MRSA bacteremia Plan: I was under the impression that he was still receiving IV vancomycin for his bacteremia. It was only in 1 out of 2 cultures and subsequent cultures were negative. Apparently his antibiotic therapy was stopped somewhere along the line and I was mistaken yesterday when I said that he was receiving vancomycin. On these cultures vancomycin had an LARON of 1. I am going to place him back on IV vancomycin today as well as meropenem in light of his high fever. (5) Leukocytosis Qualifiers: Leukocytosis type: unspecified Qualified Code(s): D72.829 - Elevated white blood cell count, unspecified Is this a current diagnosis for this admission?: Yes Plan: He has had a marked leukocytosis for most of this hospitalization. He has had no evidence of fever and his laboratory studies have been rather unremarkable. It was felt that his leukocytosis was likely secondary to an acute phase reactant to a small bowel obstruction. This morning no labs were ordered. I have ordered stat labs at this point. His leukocytosis if it is worsened is likely due to underlying infection. (6) Malnutrition of moderate degree Is this a current diagnosis for this admission?: Yes Plan: Secondary to colon cancer as well as ongoing small bowel obstruction. He will have his PICC line removed and we are going to stop his TPN for the next 3-[address] Villa would like it reinitiated after that. She also would like a PICC line placed when his infectious issues have improved. (7) Anemia Plan: He has a microcytic anemia likely related to his underlying malignancy. His hemoglobin is stable. (8) Thrombocytosis Is this a current diagnosis for this admission?: Yes Plan: Likely reactive to small bowel obstruction and now infection. (9) Hypomagnesemia Is this a current diagnosis for this admission?: Yes Plan: Continue to replete as needed. He will have a magnesium level drawn today as well as tomorrow. We will replete if we need to. (10) Hyperphosphatemia Plan: This is likely due to TPN. The phosphorus was removed from his TPN and his level is improving. (11) Elevated liver function tests Plan: Of undetermined significance. Likely due to metastatic colon cancer with mucinous spread. I will repeat his liver function tests today as well. - Time Time Spent with patient: 35 or more minutes Medications reviewed and adjusted accordingly: Yes Anticipated discharge: Kelvin - Hospitalist team needs to contact Dr. Villa, pager number [phone] by October 23 to confirm patient's transportation arrangements and suitability for HIPEC procedure on October 30, 2016 - Inpatient Certification Medical Necessity: Other - Inpatient hospitalization remains necessary. The patient now has a temperature of 103 and likely has developed a line infection or early pneumonia. Workup is ongoing and he is now requiring parenteral antibiotics. Plan as outlined above.
[2016-10-15 10:25] LABS: ALANINE AMINOTRANSFERASE 276 U/L (21-72); ALKALINE PHOSPHATASE 402 U/L (38-126); ASPARTATE AMINO TRANSFERASE 373 U/L (17-59); BILIRUBIN,DIRECT 0.8 mg/dL (0.0-0.4); BILIRUBIN,TOTAL 1.1 mg/dL (0.2-1.3); C-REACTIVE PROTEIN 50.6 mg/L (<10.0); TOTAL PROTEIN 8.8 g/dL (6.3-8.2)
[2016-10-15 10:26] LABS: ALBUMIN 3.1 g/dL (3.5-5.0)
[2016-10-15] MEDS ORDERED: FLUCONAZOLE 200 MG/NS RTU 100 MG in CONTAINER,EMPTY 1 EACH IV SCH (11:15)
--- NOTE | 2016-10-15 11:22 | Progress Note ---
Provider Note Provider Note: Since I wrote my previous note I have more information. I spoke again to Dr. Villa who now states that if possible she would like for him to be transported to the clinic on October 23 for a visit prior to his procedure on October 30. We will need to contact her early next week to make sure he has a clinic appointment available. Again her numbers are on my previous note. I also spoke to his primary oncologist Dr. Veronica Lewis. Her cell phone number is [phone]. Her recommendation since [facility] this time is to get Dr. Sanders to see the patient for the remainder of his hospital stay. I spoke to him at length on the phone and he would like for me to get a contrasted CT scan of the chest abdomen and pelvis. He would like IV and oral contrast for the abdomen. This will be ordered. He also recommended that I add fungal coverage empirically at this time as he could certainly have a fungal anemia due to his long-term TPN. He recommended that we place the patient on IV Diflucan 100 mg daily. This order has been written as well. I can be reached at [phone] if there are further questions regarding the plan of care. Additional time spent: 90 minutes.
[2016-10-15] MEDS: IMIPENEM/CILASTATIN SODIUM 1,000 MG in NORMAL SALINE 250 ML IV SCH ×3 (13:05→23:25)
[2016-10-15 13:46] LABS: MEAN CORPUSCULAR HEMOGLOBIN 24.2 pg (27.0-33.4); MEAN CORPUSCULAR HGB CONC 31.9 g/dL (32.0-36.0)
[2016-10-15 13:50] LABS: ANION GAP 14 (5-19); BLOOD UREA NITROGEN 25 mg/dL (7-20); CARBON DIOXIDE 23 mmol/L (22-30); CHLORIDE 97 mmol/L (98-107); GLUCOSE 89 mg/dL (75-110); HEMATOCRIT 28.8 % (37.9-51.0); HEMOGLOBIN 9.2 g/dL (13.5-17.0); HGB HCT DIFFERENCE -1.2; MEAN CORPUSCULAR VOLUME 76 fl (80-97); POTASSIUM 5.1 mmol/L (3.6-5.0); RED CELL DISTRIBUTION WIDTH 20.6 % (11.5-14.0); SODIUM 133.8 mmol/L (137-145); WHITE BLOOD COUNT 16.9 10^3/uL (4.0-10.5)
[2016-10-15] MEDS ORDERED: VANCOMYCIN HCL 1,000 MG in DEXTROSE 5%-WATER 250 ML IV ONE (14:00)
[2016-10-15 14:09] LABS: BASOPHILS % (MANUAL) 0 % (0-2); EOSINOPHILS % (MANUAL) 0 % (0-6); LYMPHOCYTES % (MANUAL) 4 % (13-45); TOTAL CELLS COUNTED 100
[2016-10-15 14:12] LABS: ANISOCYTOSIS 3+; HYPOCHROMASIA 2+; MICROCYTOSIS SLIGHT; TOXIC GRANULATION 1+; TOXIC VACUOLATION PRESENT
[2016-10-15] MEDS: FLUCONAZOLE 200 MG/NS RTU 100 ML IV SCH (15:09)
[2016-10-15 15:41] LABS: APPEARANCE,URINE SLIGHTLY-CLOUDY; BILIRUBIN,URINE NEGATIVE (NEGATIVE); GLUCOSE, URINE NEGATIVE (NEGATIVE); KETONES,URINE NEGATIVE (NEGATIVE); LEUKOCYTE ESTERASE,URINE TRACE (NEGATIVE); NITRITE,URINE NEGATIVE (NEGATIVE); PROTEIN,URINE 30 mg/dL (NEGATIVE); URINE SPECIFIC GRAVITY 1.015; UROBILINOGEN,URINE NEGATIVE mg/dL (<2.0)
[2016-10-15] MEDS ORDERED: ACETAMINOPHEN 650 MG SUPP.RECT PR PRN (16:32)
[2016-10-15] MEDS: VANCOMYCIN HCL 1,000 MG in DEXTROSE 5%-WATER 250 ML IV SCH (23:24)
[2016-10-16] MEDS: HYDROMORPHONE HCL INJ/PF 2 MG/ML AMPULE IV PRN ×6 (00:12→20:12)
--- NOTE | 2016-10-16 04:43 | RADIOLOGY REPORT (SQ) ---
EXAM DESCRIPTION: CT ABD/PELVIS WITH IV ORAL COMPLETED DATE/TIME: 10/15/2016 9:15 pm REASON FOR STUDY: evaluate partial small bowel obstruction COMPARISON: 09/27/2016. 08/11/2016. TECHNIQUE: CT scan of the abdomen and pelvis performed using helical scanning technique with dynamic intravenous contrast injection. No oral contrast. Images reviewed with lung, soft tissue, and bone windows. Reconstructed coronal and sagittal MPR images reviewed. Delayed images for evaluation of the urinary system also acquired. All images stored on PACS. All CT scanners at this facility use dose modulation, iterative reconstruction, and/or weight based d osing when appropriate to reduce radiation dose to as low as reasonably achievable (ALARA). [facility]: Dose Right [facility]: CareDose [facility]: Dose Right [facility]: Teradose 4D [facility]: [employer] CONTRAST TYPE AND DOSE: 100 mL Isovue 370- low osmolar. RENAL FUNCTION: None required. The patient is less than 50 years old. RADIATION DOSE: Up-to-date CT equipment and radiation dose reduction techniques were employed. CTDIv ol: 4.9 - 4.9 mGy. DLP: 620 mGy-cm.. LIMITATIONS: None. FINDINGS: LOWER CHEST: See separate report of the CT of the chest. LIVER: Normal size. No masses. No dilated ducts. SPLEEN: Absent. PANCREAS: No masses. No significant calcifications. No adjacent inflammation or peripancreatic fluid collections. Pancreatic duct not dilated. GALLBLADDER: No identified stones by CT criteria. No inflammatory changes to suggest cholecystitis. ADRENAL GLANDS: No significant masses or asymmetry. RIGHT KIDNEY AND URETER: No solid masses. No significant calcifications. Mild right hydronephrosi s -hydroureter. LEFT KIDNEY AND URETER: No solid masses. No significant calcifications. Moderate left hydronephro sis -hydroureter, increased/new compared with prior exam. AORTA AND VESSELS: No aneurysm. No dissection. Renal arteries, SMA, celiac without stenosis. RETROPERITONEUM: No retroperitoneal adenopathy, hemorrhage or masses. BOWEL AND PERITONEAL CAVITY: 3.8 diameter fluid dilated small bowel of the left upper abdominal quadr ant similar to prior exam from 09/27/2016. Severe chronic fluid dilation of large bowel extensively i ncluding transverse colon diameter measuring up to 7.1 cm. Ostomy site of the right paracentral abdo men. Suture material and/or calcification of the pelvis and along the right paracentral abdominal wa ll. Indeterminate low-attenuation components of the anterior pelvic wall, midline measure up to 2.1 cm each and may represent scar, seromatous collection, ; cannot exclude partial bowel herniation. Ch ronic, small loculated air-fluid appearance at the anterior pelvis, image 64 of series 5. PELVIS: 10 cm fluid distention of the urinary bladder. ABDOMINAL WALL: As above. BONES: No significant or acute findings. OTHER: NG tube with appears in adequate position. IMPRESSION: 1. Moderate small bowel obstruction pattern persists. Chronic severely dilated large b owel. No gross free air discerned. Lack of oral contrast decreases sensitivity-specificity of this exam. 2. Nonspecific moderate left hydronephrosis -hydroureter and mild right hydronephrosis -hydro ureter. This appearance is new/ worsened compared with prior exams. Recommend dynamic contrast CT o f the renal system. TECHNICAL DOCUMENTATION: JOB ID: [id number] Quality ID # [id number]: Final reports with documentation of one or more dose reduction techniques (e.g., Au tomated exposure control, adjustment of the mA and/or kV according to patient size, use of iterative reconstruction technique) 2010 [employer]- All Rights Reserved
--- NOTE | 2016-10-16 05:05 | RADIOLOGY REPORT (SQ) ---
EXAM DESCRIPTION: CT CHEST WITH COMPLETED DATE/TIME: 10/15/2016 9:15 pm REASON FOR STUDY: evaluate for metastases or pneumonia COMPARISON: 09/27/2016. TECHNIQUE: CT scan of the chest performed using helical scanning technique with dynamic intravenous contrast injection. Images reviewed with lung, soft tissue and bone windows. Reconstructed coronal and sagittal MPR images reviewed. All images stored on PACS. All CT scanners at this facility use dose modulation, iterative reconstruction, and/or weight based d osing when appropriate to reduce radiation dose to as low as reasonably achievable (ALARA). [facility]: Dose Right [facility]: CareDose [facility]: Dose Right [facility]: Teradose 4D [facility]: [employer] CONTRAST TYPE AND DOSE: contrast/concentration: Isovue 370.00 mg/ml; Total Contrast Delivered: 100.0 ml; Total Saline Delivered: 45.0 ml RENAL FUNCTION: None required. The patient is less than 50 years old. RADIATION DOSE: 620 LIMITATIONS: None. FINDINGS: LUNGS AND PLEURA: Small streaky opacity of the left lung base mildly increased. Small rig ht basilar atelectasis or scar. HILAR AND MEDIASTINAL STRUCTURES: No identified masses or abnormal nodes. HEART AND VASCULAR STRUCTURES: No aneurysm or dissection. No central pulmonary emboli. No pericardi al effusion. HARDWARE: Mini port and right subclavian central line tip at the cavoatrial junction. UPPER ABDOMEN: The THYROID AND OTHER SOFT TISSUES: No masses. No adenopathy. BONES: No significant finding. OTHER: No other significant finding. IMPRESSION: Small left lower lobar pneumonia/atelectasis, increased. Abnormal CT of the abdomen/pe lvis reported separately. TECHNICAL DOCUMENTATION: JOB ID: [id number] Quality ID # [id number]: Final reports with documentation of one or more dose reduction techniques (e.g., Au tomated exposure control, adjustment of the mA and/or kV according to patient size, use of iterative reconstruction technique) 2010 [employer]- All Rights Reserved
[2016-10-16 05:46] LABS: ABSOLUTE BASOPHILS # (AUTO) 0.1 10^3/uL (0.0-0.2); ABSOLUTE EOSINOPHILS # (AUTO) 0.1 10^3/uL (0.0-0.6); ABSOLUTE LYMPHOCYTES (AUTO) 1.2 10^3/uL (0.5-4.7); ABSOLUTE MONOCYTES (AUTO) 0.6 10^3/uL (0.1-1.4); ABSOLUTE NEUT (AUTO) 14.5 10^3/uL (1.7-8.2); BASOPHILS % (AUTO) 0.5 % (0-2); EOSINOPHILS % (AUTO) 0.7 % (0-6); HEMATOCRIT 27.6 % (37.9-51.0); HEMOGLOBIN 8.8 g/dL (13.5-17.0); HGB HCT DIFFERENCE -1.2; LYMPHOCYTES % (AUTO) 7.2 % (13-45); MEAN CORPUSCULAR HEMOGLOBIN 24.1 pg (27.0-33.4); MEAN CORPUSCULAR HGB CONC 31.8 g/dL (32.0-36.0); MEAN CORPUSCULAR VOLUME 76 fl (80-97); MONOCYTES % (AUTO) 3.4 % (3-13); RED BLOOD COUNT 3.64 10^6/uL (4.35-5.55); RED CELL DISTRIBUTION WIDTH 20.7 % (11.5-14.0); SEGMENTED NEUTROPHILS % (AUTO) 88.2 % (42-78); WHITE BLOOD COUNT 16.4 10^3/uL (4.0-10.5)
[2016-10-16 06:04] LABS: ALANINE AMINOTRANSFERASE 246 U/L (21-72); ALKALINE PHOSPHATASE 342 U/L (38-126); ANION GAP 15 (5-19); ASPARTATE AMINO TRANSFERASE 195 U/L (17-59); BILIRUBIN,DIRECT 0.8 mg/dL (0.0-0.4); BILIRUBIN,TOTAL 0.9 mg/dL (0.2-1.3); BLOOD UREA NITROGEN 18 mg/dL (7-20); CALCIUM 9.1 mg/dL (8.4-10.2); CARBON DIOXIDE 23 mmol/L (22-30); CHLORIDE 93 mmol/L (98-107); CREATININE RESULT 0.88 mg/dL (0.52-1.25); GLUCOSE 96 mg/dL (75-110); POTASSIUM 5.3 mmol/L (3.6-5.0); SODIUM 130.7 mmol/L (137-145); TOTAL PROTEIN 8.5 g/dL (6.3-8.2)
[2016-10-16] MEDS: HEPARIN SOD (PORCINE) 5,000 UNIT/ML 1 ML SYRINGE SUBCUT SCH ×3 (06:06→22:08)
[2016-10-16] MEDS: IMIPENEM/CILASTATIN SODIUM 1,000 MG in NORMAL SALINE 250 ML IV SCH ×3 (06:06→17:03)
[2016-10-16] MEDS ORDERED: NORMAL SALINE 1000 ML 1,000 ML IV PRN (08:31)
--- NOTE | 2016-10-16 08:41 | PDOC CONSULTATION ---
Consultation Consult Date: 10/16/16 Attending physician:: MINGO Márquez BUSTEED Consult reason:: Known history of stage IV appendiceal carcinoma, here with complete small bowel obstruction, requirement for total parenteral nutrition, now with fever and weakness. History of Present Illness Admission Date/PCP: 09/23/16 16:29 Patient complains of: Fever, weakness, stage IV mucinous cancer History of Present Illness: 41-year-old male with known history of stage IV mucinous adenocarcinoma, he was originally diagnosed in 2004, he was treated originally at [facility], he had surgery with [facility] and [place], he did have stage IV mucinous adenocarcinoma at the time of surgery, he had an extensive resection at that time as well as HIPEC treatment. Over the last 70 years he has been treated with a multitude of chemotherapy agents, he has received FOLFOX, Avastin , XELODA, most recently he was on FOLFIRI/AVASTIN but it has been 2 months since he has been able to receive treatment. I saw him first about 2 months ago , at the time he presented with a partial small bowel obstruction, this was treated with medical management, he came back with partial small bowel obstruction, and ultimately he was finally transferred to [place]. He was in [place] and they placed him on TPN and bowel rest. He was seen by surgical oncology there, Dr. Lachelle Villa, who wanted him to have further bowel rest and improvement in his performance status with TPN, for consideration of further HIPEC surgery and treatment. Over the last 1 month he has been transferred back here, he has been on TPN, and he was actually supposed to go back up there as an outpatient for admission for surgery. Unfortunately over the last 24 hours he spiked a fever up to 103, he has been cultured, the PICC line was removed and he has a peripheral IV, TPN was stopped , he is on broad-spectrum antibiotics and I have added antifungal therapy yesterday. The fevers have defervesced and over the last 12 hours has not had a fever. Past Medical History Cardiac Medical History: Denies: Congestive Heart Failure, DVT, Hyperlipidema, Hypertension, Pulmonary Embolism Pulmonary Medical History: Denies: Asthma, Chronic Obstructive Pulmonary Disease (COPD), Sleep Apnea, Tuberculosis Neurological Medical History: Denies: Seizures Endocrine Medical History: Denies: Diabetes Mellitus Type 1, Diabetes Mellitus Type 2, Hyperthyroidism, Hypothyroidism Malignancy Medical History: Reports: Colorectal Cancer - Metastatic to liver, status post complete colectomy. Ileostomy. GI Medical History: Denies: Cirrhosis, Gastroesophageal Reflux Disease, Hepatitis Musculoskeltal Medical History: Denies: Arthritis Psychiatric Medical History: Denies: Depression Infectious Medical History: Denies: Clostridium Difficile, Methicillin-Resistant Staph Aureus Past Surgical History Past Surgical History: Reports: Appendectomy, Cholecystectomy, Ileostomy, Other - Total colectomy for colorectal cancer. Social History Smoking Status: Unknown if Ever Smoked Frequency of Alcohol Use: None Hx Recreational Drug Use: No Drugs: None Hx Prescription Drug Abuse: No - Advance Directive Resuscitation Status: Full Code Family History Family History: Reviewed & Not Pertinent Parental Family History Reviewed: Yes Children Family History Reviewed: Yes Sibling(s) Family History Reviewed.: Yes Medication/Allergy Home Medications: Alprazolam [Xanax 0.5 mg Tablet] 0.5 mg PO BIDP PRN 09/23/16 Hydromorphone HCl [Dilaudid] 8 mg PO Q4HP PRN 09/23/16 Ondansetron HCl [Zofran 8 mg Tablet] 8 mg PO Q8HP PRN 09/23/16 Zolpidem Tartrate [Ambien 5 mg Tablet] 5 mg PO HSP PRN 09/23/16 Allergies/Adverse Reactions: No Known Allergies Allergy (Verified 08/04/16 14:39) Review of Systems Constitutional: ABSENT: chills, fever(s), headache(s), weight gain, weight loss Eyes: ABSENT: visual disturbances Ears: ABSENT: hearing changes Cardiovascular: ABSENT: chest pain, dyspnea on exertion, edema, orthropnea, palpitations Respiratory: ABSENT: cough, hemoptysis Gastrointestinal: ABSENT: abdominal pain, constipation, diarrhea, hematemesis, hematochezia, nausea, vomiting Genitourinary: ABSENT: dysuria, hematuria Musculoskeletal: ABSENT: joint swelling Integumentary: ABSENT: rash, wounds Neurological: ABSENT: abnormal gait, abnormal speech, confusion, dizziness, focal weakness, syncope Psychiatric: ABSENT: anxiety, depression, homidical ideation, suicidal ideation Endocrine: ABSENT: cold intolerance, heat intolerance, polydipsia, polyuria Hematologic/Lymphatic: ABSENT: easy bleeding, easy bruising Physical Exam Vital Signs: Temp Pulse Resp BP Pulse Ox 98.6 F 84 16 105/78 96 10/16/16 08:11 10/16/16 08:11 10/16/16 08:11 10/16/16 08:11 10/16/16 08:11 Intake & Output 10/15/16 10/16/16 10/17/16 06:59 06:59 06:59 Intake Total 3986 2568 Output Total 710 2210 Balance 3276 358 Weight 59.8 kg 59.8 kg General appearance: PRESENT: no acute distress, well-developed, well-nourished Head exam: PRESENT: atraumatic, normocephalic Eye exam: PRESENT: conjunctiva pink, EOMI, PERRLA. ABSENT: scleral icterus Ear exam: PRESENT: normal external ear exam Mouth exam: PRESENT: moist, tongue midline Neck exam: ABSENT: carotid bruit, JVD, lymphadenopathy, thyromegaly Respiratory exam: PRESENT: clear to auscultation luisa. ABSENT: rales, rhonchi, wheezes Cardiovascular exam: PRESENT: RRR. ABSENT: diastolic murmur, rubs, systolic murmur Pulses: PRESENT: normal dorsalis pedis pul Vascular exam: PRESENT: normal capillary refill GI/Abdominal exam: PRESENT: normal bowel sounds, soft. ABSENT: distended, guarding, mass, organolmegaly, rebound, tenderness Rectal exam: PRESENT: deferred Extremities exam: PRESENT: full ROM. ABSENT: calf tenderness, clubbing, pedal edema Neurological exam: PRESENT: alert, awake, oriented to person, oriented to place , oriented to time, oriented to situation, CN II-XII grossly intact. ABSENT: motor sensory deficit Psychiatric exam: PRESENT: appropriate affect, normal mood. ABSENT: homicidal ideation, suicidal ideation Skin exam: PRESENT: dry, intact, warm. ABSENT: cyanosis, rash Results Laboratory Results: 10/16/16 04:21 10/16/16 04:21 10/15/16 10/15/16 10/15/16 09:13 09:22 09:22 WBC RBC Hgb Hct MCV MCH MCHC RDW Plt Count Seg Neutrophils % Lymphocytes % Monocytes % Eosinophils % Basophils % Absolute Neutrophils Absolute Lymphocytes Absolute Monocytes Absolute Eosinophils Absolute Basophils Sodium Potassium Chloride Carbon Dioxide Anion Gap BUN Creatinine Est GFR ( Amer) Est GFR (Non-Af Amer) Glucose Lactic Acid 0.8 Calcium Phosphorus 4.9 H Magnesium Total Bilirubin 1.1 AST 373 H ALT 276 H Alkaline Phosphatase 402 H C-Reactive Protein 50.6 H Total Protein 8.8 H Albumin 3.1 L Urine Color Urine Appearance Urine pH Ur Specific [place] Urine Protein Urine Glucose (UA) Urine Ketones Urine Blood Urine Nitrite Ur Leukocyte Esterase Urine WBC (Auto) Urine RBC (Auto) 10/15/16 10/15/16 10/15/16 09:22 09:22 13:25 WBC 16.9 H RBC 3.80 L Hgb 9.2 L Hct 28.8 L MCV 76 L MCH 24.2 L MCHC 31.9 L RDW 20.6 H Plt Count 736 H Seg Neutrophils % Not Reportable Lymphocytes % Not Reportable Monocytes % Not Reportable Eosinophils % Not Reportable Basophils % Not Reportable Absolute Neutrophils Not Reportable Absolute Lymphocytes Not Reportable Absolute Monocytes Not Reportable Absolute Eosinophils Not Reportable Absolute Basophils Not Reportable Sodium 133.8 L Potassium 5.1 H Chloride 97 L Carbon Dioxide 23 Anion Gap 14 BUN 25 H Creatinine 1.10 Est GFR ( Amer) > 60 Est GFR (Non-Af Amer) > 60 Glucose 89 Lactic Acid Calcium 10.0 Phosphorus Magnesium 2.0 Total Bilirubin AST ALT Alkaline Phosphatase C-Reactive Protein Total Protein Albumin Urine Color YELLOW Urine Appearance SLIGHTLY-CLOUDY Urine pH 6.0 Ur Specific [place] 1.015 Urine Protein 30 H Urine Glucose (UA) NEGATIVE Urine Ketones NEGATIVE Urine Blood SMALL H Urine Nitrite NEGATIVE Ur Leukocyte Esterase TRACE H Urine WBC (Auto) 14 Urine RBC (Auto) 2 10/16/16 10/16/16 10/16/16 04:21 04:21 04:21 WBC 16.4 H RBC 3.64 L Hgb 8.8 L Hct 27.6 L MCV 76 L MCH 24.1 L MCHC 31.8 L RDW 20.7 H Plt Count 557 H Seg Neutrophils % 88.2 H Lymphocytes % 7.2 L Monocytes % 3.4 Eosinophils % 0.7 Basophils % 0.5 Absolute Neutrophils 14.5 H Absolute Lymphocytes 1.2 Absolute Monocytes 0.6 Absolute Eosinophils 0.1 Absolute Basophils 0.1 Sodium Cancelled 130.7 L Potassium Cancelled 5.3 H Chloride Cancelled 93 L Carbon Dioxide Cancelled 23 Anion Gap Cancelled 15 BUN Cancelled 18 Creatinine Cancelled 0.88 Est GFR ( Amer) Cancelled > 60 Est GFR (Non-Af Amer) Cancelled > 60 Glucose Cancelled 96 Lactic Acid Calcium Cancelled 9.1 Phosphorus Magnesium 1.6 Total Bilirubin 0.9 AST 195 H ALT 246 H Alkaline Phosphatase 342 H C-Reactive Protein Total Protein 8.5 H Albumin 3.0 L Urine Color Urine Appearance Urine pH Ur Specific [place] Urine Protein Urine Glucose (UA) Urine Ketones Urine Blood Urine Nitrite Ur Leukocyte Esterase Urine WBC (Auto) Urine RBC (Auto) Impressions: KUB X-Ray 09/23/16 17:12 IMPRESSION: Tube placement as described. Facial Bones CT 09/27/16 00:00 IMPRESSION: NG tube is identified. No other significant findings. Abdomen/Pelvis CT 10/15/16 00:00 IMPRESSION: 1. Moderate small bowel obstruction pattern persists. Chronic severely dilated large bowel. No gross free air discerned. Lack of oral contrast decreases sensitivity-specificity of this exam. 2. Nonspecific moderate left hydronephrosis -hydroureter and mild right hydronephrosis - hydroureter. This appearance is new/ worsened compared with prior exams. Recommend dynamic contrast CT of the renal system. Chest CT 10/15/16 00:00 IMPRESSION: Small left lower lobar pneumonia/atelectasis, increased. Abnormal CT of the abdomen/pelvis reported separately. Chest X-Ray 10/15/16 08:16 IMPRESSION: Linear basilar atelectasis. Assessment & Plan - Diagnosis (1) Small bowel obstruction Is this a current diagnosis for this admission?: Yes Plan: Secondary to most likely tumor causing obstruction, agree that the only approach possible would be a surgical approach and it would be best to give heated intraperitoneal chemotherapy during this approach but unsure if he is going to be a candidate for that given his performance status. Continue with current therapy with antibiotics plus TPN and bowel rest for the next 72 hours, and then reassess if fever free, restart TPN and hopefully working towards getting him to [place] for surgery. (2) Colon cancer metastasized to liver Is this a current diagnosis for this admission?: Yes Plan: He does have a mucinous adenocarcinoma of the appendix originally, his performance status is still borderline to so he could still be a candidate for further therapy, he could still be a candidate for surgery, he is adamant about having this. Hopefully this can happen. - Time Time Spent: Greater than 70 Minutes Critical Time spent with patient: 35 or more minutes - Inpatient Certification Based on my medical assessment, after consideration of the patient's comorbidities, presenting symptoms, or acuity I expect that the services needed warrant INPATIENT care.: Yes I certify that my determination is in accordance with my understanding of Medicare's requirements for reasonable and necessary INPATIENT services [42 CFR 412.3e].: Yes Medical Necessity: Need For IV Fluids, Need for IV Antibiotics
[2016-10-16] MEDS: NORMAL SALINE 10 ML SDV (SCHEDULED) IV SCH (09:42)
[2016-10-16] MEDS: VANCOMYCIN HCL 1,000 MG in DEXTROSE 5%-WATER 250 ML IV SCH ×2 (10:03→22:07)
[2016-10-16] MEDS: DEXTROSE 5%-1/2 NORMAL SALINE 1,000 ML IV PRN (10:07)
[2016-10-16] MEDS: FLUCONAZOLE 200 MG/NS RTU 100 ML IV SCH (11:33)
--- NOTE | 2016-10-16 14:49 | PDOC PROGRESS REPORT ---
Subjective Progress Note for:: 10/16/16 - HD#23 Subjective:: The patient is an unfortunate 41-year-old -[place] male with known stage IV mucinous adenocarcinoma of the colon. He has had issues with recurrent small bowel obstructions and really has no further traditional chemotherapy options left. He follows with Dr. Veronica Lewis in [place] who has managed his cancer to this point. He was transferred to our facility from [facility] for continued TPN, n.p.o. status and NG tube decompression. He had been evaluated by Dr Villa for HIPEC. She wished to optimize his nutritional status, so his procedure had tentatively been scheduled for October 17, 2015. The patient has been here at our facility since September 23, 2016. He has remained on NG tube suction and has been receiving TPN via a PICC line. Unfortunately, on the running of October 16, 2015 this morning he spiked a high fever over 103. Liz Martin spoke to Dr. Villa (pager number [phone]) the morning of the fever. Apparently, there had been some confusion and the patient would not of been able to have this procedure performed this week as we needed to contact her 1 week prior to the procedure, so that she could make arrangements. Unfortunately, this got lost in communication. In any event, he would not be able to have his procedure this week due to the fact that he has developed fever and probable infection. At this point she would like to reschedule the procedure tentatively for October 30. In order for this procedure to be done on that date, we would need to contact her no later than October 23 to confirm that he will be coming in, and to make the appropriate transportation arrangements, so she can book the OR and until culture results are finalized. If she is not contacted by October 23 they will not be able to do the procedure on October 30. Her recommendation was to place the patient on broad-spectrum antibiotics. She recommended giving him a TPN holiday for 3-4 days but then resume. (He has been on IV dextrose for 2 days now.) She requested that we remove his PICC line as this is likely the source of the infection. The PICC line was removed October 15. He has not had a fever since its removal. We will follow up with culture results and appropriate antibiotic therapy. If he has bacteremia, the PICC line will need to be replaced when the blood cultures are clear. Liz Martin spoke again to Dr. Villa who now stated that if possible she would like for him to be transported to the clinic on October 23 for a visit prior to his procedure on October 30. We will need to contact her (pager number [phone]) early next week to make sure he has a clinic appointment available. She also spoke to his primary oncologist Dr. Veronica Lewis. Her cell phone number is [phone]. Her recommendation since we have so many [facility]'s providers at this time is to get Dr. Sanders to see the patient for the remainder of his hospital stay. Ms Martin spoke to him at length on the phone. He recommended contrasted CT scan of the chest abdomen and pelvis. CT abdomen /pelvis October 15, 2016 demonstrated a moderate small bowel obstruction as well as bilateral hydronephrosis, left greater than right. He also recommended fungal coverage empirically at this time as he could certainly have a fungal infection due to his long-term TPN. Mr Mansfield was started on IV Diflucan 100 mg daily. Yesterday, October 15, 2016, the patient felt poorly. He has not had any shaking chills but states that he had a headache. He was unaware that he was running a fever. He has no sinus congestion or sore throat. He stated he has developed a bit of a cough. He did not cough up any sputum. He had no chest pain or heart palpitations. He had nausea and an episode or 2 of vomiting. He did not have any increased abdominal pain. He has dark liquid stool from his ostomy bag. Today, he is without new complaints. he has mild abdominal pain for which IV hydromorphone "push" helps. Physical Exam Vital Signs: Temp Pulse Resp BP Pulse Ox 98.6 F 84 16 105/78 96 10/16/16 08:11 10/16/16 08:11 10/16/16 08:11 10/16/16 08:11 10/16/16 08:11 Intake & Output 10/15/16 10/16/16 10/17/16 06:59 06:59 06:59 Intake Total 3986 2568 Output Total 710 2210 Balance 3276 358 Weight 59.8 kg 59.8 kg General appearance: PRESENT: no acute distress, thin Head exam: PRESENT: atraumatic, normocephalic Eye exam: PRESENT: conjunctiva pink, EOMI, PERRLA. ABSENT: scleral icterus Respiratory exam: PRESENT: clear to auscultation luisa. ABSENT: rales, rhonchi, wheezes Cardiovascular exam: PRESENT: RRR. ABSENT: diastolic murmur, rubs, systolic murmur GI/Abdominal exam: PRESENT: hypoactive bowel sounds, soft, other - ostomy. ABSENT: distended, tenderness Extremities exam: ABSENT: calf tenderness, pedal edema, tenderness Musculoskeletal exam: PRESENT: ambulatory Neurological exam: PRESENT: alert, awake, oriented to person, oriented to place , oriented to time, oriented to situation, CN II-XII grossly intact. ABSENT: motor sensory deficit Skin exam: PRESENT: dry Results Laboratory Results: 10/16/16 04:21 10/16/16 04:21 10/15/16 10/15/16 10/15/16 09:22 09:22 13:25 WBC 16.9 H RBC 3.80 L Hgb 9.2 L Hct 28.8 L MCV 76 L MCH 24.2 L MCHC 31.9 L RDW 20.6 H Plt Count 736 H Seg Neutrophils % Not Reportable Lymphocytes % Not Reportable Monocytes % Not Reportable Eosinophils % Not Reportable Basophils % Not Reportable Absolute Neutrophils Not Reportable Absolute Lymphocytes Not Reportable Absolute Monocytes Not Reportable Absolute Eosinophils Not Reportable Absolute Basophils Not Reportable Sodium 133.8 L Potassium 5.1 H Chloride 97 L Carbon Dioxide 23 Anion Gap 14 BUN 25 H Creatinine 1.10 Est GFR ( Amer) > 60 Est GFR (Non-Af Amer) > 60 Glucose 89 Calcium 10.0 Magnesium 2.0 Total Bilirubin AST ALT Alkaline Phosphatase Total Protein Albumin Urine Color YELLOW Urine Appearance SLIGHTLY-CLOUDY Urine pH 6.0 Ur Specific [place] 1.015 Urine Protein 30 H Urine Glucose (UA) NEGATIVE Urine Ketones NEGATIVE Urine Blood SMALL H Urine Nitrite NEGATIVE Ur Leukocyte Esterase TRACE H Urine WBC (Auto) 14 Urine RBC (Auto) 2 10/16/16 10/16/16 10/16/16 04:21 04:21 04:21 WBC 16.4 H RBC 3.64 L Hgb 8.8 L Hct 27.6 L MCV 76 L MCH 24.1 L MCHC 31.8 L RDW 20.7 H Plt Count 557 H Seg Neutrophils % 88.2 H Lymphocytes % 7.2 L Monocytes % 3.4 Eosinophils % 0.7 Basophils % 0.5 Absolute Neutrophils 14.5 H Absolute Lymphocytes 1.2 Absolute Monocytes 0.6 Absolute Eosinophils 0.1 Absolute Basophils 0.1 Sodium Cancelled 130.7 L Potassium Cancelled 5.3 H Chloride Cancelled 93 L Carbon Dioxide Cancelled 23 Anion Gap Cancelled 15 BUN Cancelled 18 Creatinine Cancelled 0.88 Est GFR ( Amer) Cancelled > 60 Est GFR (Non-Af Amer) Cancelled > 60 Glucose Cancelled 96 Calcium Cancelled 9.1 Magnesium 1.6 Total Bilirubin 0.9 AST 195 H ALT 246 H Alkaline Phosphatase 342 H Total Protein 8.5 H Albumin 3.0 L Urine Color Urine Appearance Urine pH Ur Specific [place] Urine Protein Urine Glucose (UA) Urine Ketones Urine Blood Urine Nitrite Ur Leukocyte Esterase Urine WBC (Auto) Urine RBC (Auto) Impressions: KUB X-Ray 09/23/16 17:12 IMPRESSION: Tube placement as described. Facial Bones CT 09/27/16 00:00 IMPRESSION: NG tube is identified. No other significant findings. Abdomen/Pelvis CT 10/15/16 00:00 IMPRESSION: 1. Moderate small bowel obstruction pattern persists. Chronic severely dilated large bowel. No gross free air discerned. Lack of oral contrast decreases sensitivity-specificity of this exam. 2. Nonspecific moderate left hydronephrosis -hydroureter and mild right hydronephrosis - hydroureter. This appearance is new/ worsened compared with prior exams. Recommend dynamic contrast CT of the renal system. Chest CT 10/15/16 00:00 IMPRESSION: Small left lower lobar pneumonia/atelectasis, increased. Abnormal CT of the abdomen/pelvis reported separately. Chest X-Ray 10/15/16 08:16 IMPRESSION: Linear basilar atelectasis. Assessment & Plan - Diagnosis (1) Fever Qualifiers: Encounter type: subsequent encounter Is this a current diagnosis for this admission?: Yes Plan: No fever since the PICC line was removed. Blood cultures are pending. Continue IV antibiotics for now. (2) Colon cancer Qualifiers: Is this a current diagnosis for this admission?: Yes Plan: He has stage IV colon cancer with mucinous spread followed by Dr. Veronica Lewis. He has a small bowel obstruction and is tentatively scheduled for HIPEC on Oct 30. (3) Small bowel obstruction Is this a current diagnosis for this admission?: Yes Plan: He has recurrent small bowel obstructions due to mucinous spread of his colon cancer. Currently in the process of trying to have a HIPEC procedure performed by Dr. Vlila in [place]. The new tentative date for the procedure is October 30, 2016. The hospitalist team must contact Dr. Villa no later than October 23, 2016, so that she can make the appropriate arrangements. For now she would like him to have a TPN holiday for the 3-4 days. (He has been off TPN for 2 days now.) His TPN can then be resumed. She would like to have his PICC line replaced as soon as his infectious issues cleared and it is felt safe. (4) Elevated liver function tests Plan: Of undetermined significance. Possibly due to TPN. (5) Hyperphosphatemia Is this a current diagnosis for this admission?: Yes Plan: It is still elevated, but improved. should improve on the TPN holiday. (6) MRSA bacteremia Is this a current diagnosis for this admission?: Yes Plan: He is on IV vancomycin and imipenem (added for recent fever) (7) Malnutrition of moderate degree Plan: Secondary to colon cancer as well as ongoing small bowel obstruction. He will had his PICC line removed yesterday October 15. TPN stoped as well. Continue to follow blood cultures. Reinsert PICC line when infection has resolved (If he develops bacteremia, he will need cultures to clear first) Then TPN can be resumed. (8) Hypomagnesemia Plan: Resolved (9) Hyperkalemia Is this a current diagnosis for this admission?: Yes Plan: Mildy elevated. Continue to monitor. (10) Hyponatremia Is this a current diagnosis for this admission?: Yes Plan: He is asymptomatic. Clinically insignificant. Continue to monitor. (11) Generalized abdominal pain Is this a current diagnosis for this admission?: Yes Plan: related to underlying malignancy and obstruction. Continue IV hydromorphone as needed.
[2016-10-17] MEDS: IMIPENEM/CILASTATIN SODIUM 1,000 MG in NORMAL SALINE 250 ML IV SCH ×4 (00:21→17:31)
[2016-10-17] MEDS: HYDROMORPHONE HCL INJ/PF 2 MG/ML AMPULE IV PRN ×6 (00:21→21:21)
[2016-10-17 05:03] LABS: HEMATOCRIT 27.1 % (37.9-51.0); HEMOGLOBIN 8.7 g/dL (13.5-17.0); MEAN CORPUSCULAR HEMOGLOBIN 24.1 pg (27.0-33.4); MEAN CORPUSCULAR HGB CONC 32.1 g/dL (32.0-36.0); MEAN CORPUSCULAR VOLUME 75 fl (80-97); RED CELL DISTRIBUTION WIDTH 20.1 % (11.5-14.0); WHITE BLOOD COUNT 15.7 10^3/uL (4.0-10.5)
[2016-10-17 05:21] LABS: ALANINE AMINOTRANSFERASE 164 U/L (21-72); ALBUMIN 2.8 g/dL (3.5-5.0); ALKALINE PHOSPHATASE 291 U/L (38-126); ANION GAP 12 (5-19); ASPARTATE AMINO TRANSFERASE 90 U/L (17-59); BILIRUBIN,DIRECT 0.5 mg/dL (0.0-0.4); BILIRUBIN,TOTAL 0.5 mg/dL (0.2-1.3); BLOOD UREA NITROGEN 15 mg/dL (7-20); CARBON DIOXIDE 26 mmol/L (22-30); CHLORIDE 94 mmol/L (98-107); CREATININE RESULT 0.75 mg/dL (0.52-1.25); GLUCOSE 84 mg/dL (75-110); MAGNESIUM 1.5 mg/dL (1.6-2.3); PHOSPHORUS 5.5 mg/dL (2.5-4.5); SODIUM 131.7 mmol/L (137-145); TOTAL PROTEIN 7.8 g/dL (6.3-8.2)
[2016-10-17 05:32] LABS: POTASSIUM 4.2 mmol/L (3.6-5.0)
[2016-10-17] MEDS: HEPARIN SOD (PORCINE) 5,000 UNIT/ML 1 ML SYRINGE SUBCUT SCH ×3 (06:08→21:21)
--- NOTE | 2016-10-17 08:17 | PDOC PROGRESS REPORT ---
Subjective Progress Note for:: 10/17/16 Subjective:: Today I had a long discussion with Dr. Villa from [facility], she is reviewed the recent images, she feels like surgery is still feasible, patient is actually still walking the halls regularly, and physically is doing very well given the fact that he has a complete obstruction. So I do agree with the fact that he could be a candidate for further therapy and surgery. If surgery is feasible and he is able to have the obstruction relieved, it is feasible to continue with systemic chemotherapy thereafter. We would not really be able to discharge the patient home with a complete obstruction and then have him go up to [facility] as an outpatient. Instead we would need to transfer, I spoke with Dr. Villa and she would accept transfer next week once we are sure the recent infection is subdued. Of note, he does have yeast in the blood as I expected, this is secondary to the TPN, he is on fluconazole, continue that. I will discuss with hospitalist team and see when they are comfortable with tapering his other antibiotics. He will continue on antibiotics with out TPN through the weekend and hol and we will reassess on Thursday. If everything goes okay then we may consider transfer at the end of next week. Physical Exam Vital Signs: Temp Pulse Resp BP Pulse Ox 98.3 F 75 20 99/69 L 95 10/17/16 04:27 10/17/16 04:27 10/17/16 04:27 10/17/16 04:27 10/17/16 04:27 Intake & Output 10/16/16 10/17/16 10/18/16 06:59 06:59 06:59 Intake Total 2568 3028 Output Total 2210 3150 Balance 358 -122 Weight 59.8 kg 58.3 kg General appearance: PRESENT: no acute distress, well-developed, well-nourished Head exam: PRESENT: atraumatic, normocephalic Eye exam: PRESENT: conjunctiva pink, EOMI, PERRLA. ABSENT: scleral icterus Ear exam: PRESENT: normal external ear exam Mouth exam: PRESENT: moist, tongue midline Neck exam: ABSENT: carotid bruit, JVD, lymphadenopathy, thyromegaly Respiratory exam: PRESENT: clear to auscultation luisa. ABSENT: rales, rhonchi, wheezes Cardiovascular exam: PRESENT: RRR. ABSENT: diastolic murmur, rubs, systolic murmur Pulses: PRESENT: normal dorsalis pedis pul Vascular exam: PRESENT: normal capillary refill GI/Abdominal exam: PRESENT: normal bowel sounds, soft. ABSENT: distended, guarding, mass, organolmegaly, rebound, tenderness Rectal exam: PRESENT: deferred Extremities exam: PRESENT: full ROM. ABSENT: calf tenderness, clubbing, pedal edema Neurological exam: PRESENT: alert, awake, oriented to person, oriented to place , oriented to time, oriented to situation, CN II-XII grossly intact. ABSENT: motor sensory deficit Psychiatric exam: PRESENT: appropriate affect, normal mood. ABSENT: homicidal ideation, suicidal ideation Skin exam: PRESENT: dry, intact, warm. ABSENT: cyanosis, rash Results Laboratory Results: 10/17/16 04:14 10/17/16 04:14 10/17/16 10/17/16 04:14 04:14 WBC 15.7 H RBC 3.60 L Hgb 8.7 L Hct 27.1 L MCV 75 L MCH 24.1 L MCHC 32.1 RDW 20.1 H Plt Count 607 H Sodium 131.7 L Potassium 4.2 D Chloride 94 L Carbon Dioxide 26 Anion Gap 12 BUN 15 Creatinine 0.75 Est GFR ( Amer) > 60 Est GFR (Non-Af Amer) > 60 Glucose 84 Calcium 9.0 Phosphorus 5.5 H Magnesium 1.5 L Total Bilirubin 0.5 AST 90 H ALT 164 H Alkaline Phosphatase 291 H Total Protein 7.8 Albumin 2.8 L Impressions: KUB X-Ray 09/23/16 17:12 IMPRESSION: Tube placement as described. Facial Bones CT 09/27/16 00:00 IMPRESSION: NG tube is identified. No other significant findings. Abdomen/Pelvis CT 10/15/16 00:00 IMPRESSION: 1. Moderate small bowel obstruction pattern persists. Chronic severely dilated large bowel. No gross free air discerned. Lack of oral contrast decreases sensitivity-specificity of this exam. 2. Nonspecific moderate left hydronephrosis -hydroureter and mild right hydronephrosis - hydroureter. This appearance is new/ worsened compared with prior exams. Recommend dynamic contrast CT of the renal system. Chest CT 10/15/16 00:00 IMPRESSION: Small left lower lobar pneumonia/atelectasis, increased. Abnormal CT of the abdomen/pelvis reported separately. Chest X-Ray 10/15/16 08:16 IMPRESSION: Linear basilar atelectasis. Assessment & Plan - Diagnosis (1) Small bowel obstruction Is this a current diagnosis for this admission?: Yes Plan: Continued, see HPI for plan. (2) Colon cancer metastasized to liver Is this a current diagnosis for this admission?: Yes Plan: Further therapy planned as an outpatient as delineated above note. - Time Time Spent with patient: 35 or more minutes Critical Time spent with patient: 35 or more minutes
[2016-10-17] MEDS: VANCOMYCIN HCL 1,000 MG in DEXTROSE 5%-WATER 250 ML IV SCH ×2 (10:25→21:21)
[2016-10-17] MEDS: DEXTROSE 5%-1/2 NORMAL SALINE 1,000 ML IV PRN (10:26)
[2016-10-17] MEDS: MAGNESIUM SULFATE/D5W 1 GM/100 ML RTUPB IV SCH ×2 (11:26→13:15)
[2016-10-17] MEDS: FLUCONAZOLE 200 MG/NS RTU 100 ML IV SCH (11:40)
--- NOTE | 2016-10-17 12:38 | Progress Note ---
Provider Note Provider Note: The patient is growing a non-albicans species. Therefore, I will switch his therapy to micafungin. Fluconazole will be dicontinued.
--- NOTE | 2016-10-17 12:39 | PDOC PROGRESS REPORT ---
Subjective Progress Note for:: 10/17/16 Subjective:: The patient is a 41-year-old black male with stage IV adenocarcinoma of the colon. The patient is currently admitted with a small bowel obstruction. The patient has been receiving TPN during this hospitalization which began on September 23, 2016. The patient developed a fever of 103 Fahrenheit on October 16, 2015. Currently, his blood cultures are growing yeast and he is receiving fluconazole. Oncology is following closely. At this point in time it is felt that the patient is a candidate for further abdominal resection. We are coordinating his care with Dr. Villa in [place]. Her pager number is [phone]. The patient has been receiving his oncology care with Dr. Veronica Lewis. Her cell phone number is [phone]. While here the patient is being followed by Dr. Sanders and his phone number is [phone]. At this point in time we are tentatively attempting surgery on October 30, 2016. According to Dr. Villa rest she would like to see him in clinic on October 23, 2016 for preoperative evaluation. Today, the patient voices no complaints. Physical Exam Vital Signs: Temp Pulse Resp BP Pulse Ox 98.1 F 73 12 100/68 95 10/17/16 08:38 10/17/16 08:38 10/17/16 08:38 10/17/16 08:38 10/17/16 08:38 Intake & Output 10/16/16 10/17/16 10/18/16 06:59 06:59 06:59 Intake Total 2568 3028 Output Total 2210 3150 Balance 358 -122 Weight 59.8 kg 58.3 kg General appearance: PRESENT: no acute distress, cooperative Head exam: PRESENT: atraumatic Eye exam: PRESENT: EOMI Mouth exam: PRESENT: neck supple Respiratory exam: PRESENT: clear to auscultation luisa Cardiovascular exam: PRESENT: RRR GI/Abdominal exam: PRESENT: distended, firm, hypoactive bowel sounds Rectal exam: PRESENT: deferred Extremities exam: PRESENT: full ROM Musculoskeletal exam: PRESENT: ambulatory Results Laboratory Results: 10/17/16 04:14 10/17/16 04:14 10/17/16 10/17/16 04:14 04:14 WBC 15.7 H RBC 3.60 L Hgb 8.7 L Hct 27.1 L MCV 75 L MCH 24.1 L MCHC 32.1 RDW 20.1 H Plt Count 607 H Sodium 131.7 L Potassium 4.2 D Chloride 94 L Carbon Dioxide 26 Anion Gap 12 BUN 15 Creatinine 0.75 Est GFR ( Amer) > 60 Est GFR (Non-Af Amer) > 60 Glucose 84 Calcium 9.0 Phosphorus 5.5 H Magnesium 1.5 L Total Bilirubin 0.5 AST 90 H ALT 164 H Alkaline Phosphatase 291 H Total Protein 7.8 Albumin 2.8 L 10/15/16 13:25 Clean Catch Midstream Urine Culture - Final NO GROWTH 2 DAYS Impressions: KUB X-Ray 09/23/16 17:12 IMPRESSION: Tube placement as described. Facial Bones CT 09/27/16 00:00 IMPRESSION: NG tube is identified. No other significant findings. Abdomen/Pelvis CT 10/15/16 00:00 IMPRESSION: 1. Moderate small bowel obstruction pattern persists. Chronic severely dilated large bowel. No gross free air discerned. Lack of oral contrast decreases sensitivity-specificity of this exam. 2. Nonspecific moderate left hydronephrosis -hydroureter and mild right hydronephrosis - hydroureter. This appearance is new/ worsened compared with prior exams. Recommend dynamic contrast CT of the renal system. Chest CT 10/15/16 00:00 IMPRESSION: Small left lower lobar pneumonia/atelectasis, increased. Abnormal CT of the abdomen/pelvis reported separately. Chest X-Ray 10/15/16 08:16 IMPRESSION: Linear basilar atelectasis. Assessment & Plan - Diagnosis (1) Fever Qualifiers: Encounter type: subsequent encounter Is this a current diagnosis for this admission?: Yes Plan: This is likely secondary to fungemia. Continue intravenous fluconazole. I will consider decreasing antibiotics as cultures unfold. (2) Gram-positive bacteremia Is this a current diagnosis for this admission?: Yes Plan: Continue vancomycin. (3) Hyperkalemia Is this a current diagnosis for this admission?: Yes (4) Hyperphosphatemia Is this a current diagnosis for this admission?: Yes (5) Hyponatremia Is this a current diagnosis for this admission?: Yes (6) MRSA bacteremia Is this a current diagnosis for this admission?: Yes (7) Malnutrition of moderate degree Is this a current diagnosis for this admission?: Yes (8) Small bowel obstruction Is this a current diagnosis for this admission?: Yes (9) Colon cancer Qualifiers: Is this a current diagnosis for this admission?: Yes (10) Hypomagnesemia Is this a current diagnosis for this admission?: Yes - Time Time Spent with patient: 25-34 minutes - Inpatient Certification Based on my medical assessment, after consideration of the patient's comorbidities, presenting symptoms, or acuity I expect that the services needed warrant INPATIENT care.: Yes I certify that my determination is in accordance with my understanding of Medicare's requirements for reasonable and necessary INPATIENT services [42 CFR 412.3e].: Yes Medical Necessity: Need For IV Fluids, Need for IV Antibiotics - Plan Summary Plan Summary: This patient will remain hospitalized for general supportive care. The goal will be to optimize his nutritional status and treat the underlying infection. Currently, he has both MRSA bacteremia and now he has a fungal growth in his blood cultures. I am not going to de-escalate therapy today. I will continue to follow cultures. Due to the fact that the patient has been receiving TPN he has multiple electrolyte abnormalities that will be followed daily and corrected as needed. Currently, the patient is on TPN holiday. We plan on resuming TPN on Thursday. The PICC line has been removed and may need to be replaced.
[2016-10-17] MEDS: MICAFUNGIN SODIUM 100 MG in NORMAL SALINE 100 ML IV SCH (15:01)
[2016-10-17] MEDS: DIPHENHYDRAMINE HCL 50 MG/ML VIAL IV PRN (20:03)
[2016-10-18] MEDS: IMIPENEM/CILASTATIN SODIUM 1,000 MG in NORMAL SALINE 250 ML IV SCH ×3 (00:06→11:30)
[2016-10-18] MEDS: HYDROMORPHONE HCL INJ/PF 2 MG/ML AMPULE IV PRN ×6 (01:03→20:57)
[2016-10-18 05:10] LABS: HEMOGLOBIN 8.1 g/dL (13.5-17.0); HGB HCT DIFFERENCE -1.7; MEAN CORPUSCULAR HEMOGLOBIN 23.6 pg (27.0-33.4); MEAN CORPUSCULAR HGB CONC 31.1 g/dL (32.0-36.0); MEAN CORPUSCULAR VOLUME 76 fl (80-97); RED BLOOD COUNT 3.43 10^6/uL (4.35-5.55); RED CELL DISTRIBUTION WIDTH 20.2 % (11.5-14.0); WHITE BLOOD COUNT 12.9 10^3/uL (4.0-10.5)
[2016-10-18] MEDS: DIPHENHYDRAMINE HCL 50 MG/ML VIAL IV PRN ×2 (05:12→20:57)
[2016-10-18] MEDS: HEPARIN SOD (PORCINE) 5,000 UNIT/ML 1 ML SYRINGE SUBCUT SCH ×3 (05:12→20:56)
[2016-10-18 05:30] LABS: ALANINE AMINOTRANSFERASE 108 U/L (21-72); ALBUMIN 2.6 g/dL (3.5-5.0); ALKALINE PHOSPHATASE 251 U/L (38-126); ANION GAP 11 (5-19); ASPARTATE AMINO TRANSFERASE 50 U/L (17-59); BILIRUBIN,DIRECT 0.5 mg/dL (0.0-0.4); BILIRUBIN,TOTAL 0.5 mg/dL (0.2-1.3); BLOOD UREA NITROGEN 12 mg/dL (7-20); CALCIUM 8.6 mg/dL (8.4-10.2); CARBON DIOXIDE 28 mmol/L (22-30); CHLORIDE 95 mmol/L (98-107); CREATININE RESULT 0.78 mg/dL (0.52-1.25); GLUCOSE 79 mg/dL (75-110); PHOSPHORUS 5.3 mg/dL (2.5-4.5); POTASSIUM 3.9 mmol/L (3.6-5.0); SODIUM 133.7 mmol/L (137-145); TOTAL PROTEIN 7.2 g/dL (6.3-8.2)
[2016-10-18 05:40] LABS: BASOPHILS % (MANUAL) 1 % (0-2); EOSINOPHILS % (MANUAL) 3 % (0-6); LYMPHOCYTES % (MANUAL) 5 % (13-45); TOTAL CELLS COUNTED 100
[2016-10-18 05:43] LABS: ANISOCYTOSIS 2+; HYPOCHROMASIA 2+; MICROCYTOSIS 1+; POIKILOCYTOSIS 2+; TARGET CELLS 2+; TOXIC GRANULATION 1+; TOXIC VACUOLATION PRESENT
[2016-10-18] MEDS: VANCOMYCIN HCL 1,000 MG in DEXTROSE 5%-WATER 250 ML IV SCH (08:55)
--- NOTE | 2016-10-18 11:58 | PDOC PROGRESS REPORT ---
Subjective Progress Note for:: 10/18/16 Subjective:: Pt doing better, no fevers. We got species back on fungal cx, +non albicans, I asked lab to send out for further speciation and sensitivities. Physical Exam Vital Signs: Temp Pulse Resp BP Pulse Ox 98.2 F 77 19 110/76 97 10/17/16 23:06 10/17/16 23:06 10/17/16 23:06 10/17/16 23:06 10/17/16 23:06 Intake & Output 10/17/16 10/18/16 10/19/16 06:59 06:59 06:59 Intake Total 3028 2700 Output Total 3150 2375 Balance -122 325 Weight 58.3 kg 58.3 kg General appearance: PRESENT: no acute distress, well-developed, well-nourished Head exam: PRESENT: atraumatic, normocephalic Eye exam: PRESENT: conjunctiva pink, EOMI, PERRLA. ABSENT: scleral icterus Ear exam: PRESENT: normal external ear exam Mouth exam: PRESENT: moist, tongue midline Neck exam: ABSENT: carotid bruit, JVD, lymphadenopathy, thyromegaly Respiratory exam: PRESENT: clear to auscultation luisa. ABSENT: rales, rhonchi, wheezes Cardiovascular exam: PRESENT: RRR. ABSENT: diastolic murmur, rubs, systolic murmur Pulses: PRESENT: normal dorsalis pedis pul Vascular exam: PRESENT: normal capillary refill GI/Abdominal exam: PRESENT: normal bowel sounds, soft. ABSENT: distended, guarding, mass, organolmegaly, rebound, tenderness Rectal exam: PRESENT: deferred Extremities exam: PRESENT: full ROM. ABSENT: calf tenderness, clubbing, pedal edema Neurological exam: PRESENT: alert, awake, oriented to person, oriented to place , oriented to time, oriented to situation, CN II-XII grossly intact. ABSENT: motor sensory deficit Psychiatric exam: PRESENT: appropriate affect, normal mood. ABSENT: homicidal ideation, suicidal ideation Skin exam: PRESENT: dry, intact, warm. ABSENT: cyanosis, rash Results Laboratory Results: 10/18/16 04:07 10/18/16 04:07 10/18/16 10/18/16 04:07 04:07 WBC 12.9 H RBC 3.43 L Hgb 8.1 L Hct 26.0 L MCV 76 L MCH 23.6 L MCHC 31.1 L RDW 20.2 H Plt Count 607 H Seg Neutrophils % Not Reportable Lymphocytes % Not Reportable Monocytes % Not Reportable Eosinophils % Not Reportable Basophils % Not Reportable Absolute Neutrophils Not Reportable Absolute Lymphocytes Not Reportable Absolute Monocytes Not Reportable Absolute Eosinophils Not Reportable Absolute Basophils Not Reportable Sodium 133.7 L Potassium 3.9 Chloride 95 L Carbon Dioxide 28 Anion Gap 11 BUN 12 Creatinine 0.78 Est GFR ( Amer) > 60 Est GFR (Non-Af Amer) > 60 Glucose 79 Calcium 8.6 Phosphorus 5.3 H Magnesium 2.0 Total Bilirubin 0.5 AST 50 ALT 108 H Alkaline Phosphatase 251 H Total Protein 7.2 Albumin 2.6 L 10/15/16 09:13 Blood Blood Culture - Final Yeast, Not Jossie Albicans 10/15/16 09:22 Blood Blood Culture - Final Yeast, Not Jossie Albicans 10/15/16 13:25 Clean Catch Midstream Urine Culture - Final NO GROWTH 2 DAYS Impressions: KUB X-Ray 09/23/16 17:12 IMPRESSION: Tube placement as described. Facial Bones CT 09/27/16 00:00 IMPRESSION: NG tube is identified. No other significant findings. Abdomen/Pelvis CT 10/15/16 00:00 IMPRESSION: 1. Moderate small bowel obstruction pattern persists. Chronic severely dilated large bowel. No gross free air discerned. Lack of oral contrast decreases sensitivity-specificity of this exam. 2. Nonspecific moderate left hydronephrosis -hydroureter and mild right hydronephrosis - hydroureter. This appearance is new/ worsened compared with prior exams. Recommend dynamic contrast CT of the renal system. Chest CT 10/15/16 00:00 IMPRESSION: Small left lower lobar pneumonia/atelectasis, increased. Abnormal CT of the abdomen/pelvis reported separately. Chest X-Ray 10/15/16 08:16 IMPRESSION: Linear basilar atelectasis. Assessment & Plan - Diagnosis (1) Small bowel obstruction Is this a current diagnosis for this admission?: Yes Plan: Continued, holding on TPN b/c of fungemia, cont antifungals and IVF support (2) Colon cancer metastasized to liver Is this a current diagnosis for this admission?: Yes Plan: Planned for surgery at [facility], possible transfer back to [facility] next week.
--- NOTE | 2016-10-18 12:05 | PDOC PROGRESS REPORT ---
Subjective Progress Note for:: 10/18/16 Subjective:: The patient is a 41-year-old black male with stage IV adenocarcinoma of the colon. The patient is currently admitted with a small bowel obstruction. The patient has been receiving TPN during this hospitalization which began on September 23, 2016. The patient developed a fever of 103 Fahrenheit on October 16, 2015. Currently, his blood cultures are growing yeast and he is receiving fluconazole. Oncology is following closely. At this point in time it is felt that the patient is a candidate for further abdominal resection. We are coordinating his care with Dr. Villa in [place]. Her pager number is [phone]. The patient has been receiving his oncology care with Dr. Veronica Lewis. Her cell phone number is [phone]. While here the patient is being followed by Dr. Sanders and his phone number is [phone]. At this point in time we are tentatively attempting surgery on October 30, 2016. According to Dr. Villa rest she would like to see him in clinic on October 23, 2016 for preoperative evaluation. Yesterday, the patient's blood cultures grew out a non-albicans Jossie species. The patient was switched to micafungin from fluconazole. Overnight, the patient did well. He voices no complaints today. Physical Exam Vital Signs: Temp Pulse Resp BP Pulse Ox 98.2 F 77 19 110/76 97 10/17/16 23:06 10/17/16 23:06 10/17/16 23:06 10/17/16 23:06 10/17/16 23:06 Intake & Output 10/17/16 10/18/16 10/19/16 06:59 06:59 06:59 Intake Total 3028 2700 Output Total 3150 2375 Balance -122 325 Weight 58.3 kg 58.3 kg General appearance: PRESENT: no acute distress, cooperative Eye exam: PRESENT: EOMI Respiratory exam: PRESENT: clear to auscultation luisa, unlabored Cardiovascular exam: PRESENT: RRR GI/Abdominal exam: PRESENT: firm - The patient's abdomen is firm but nondistended. Bowel sounds are extremely diminished. Patient has dark brown liquid in the ileostomy bag. Musculoskeletal exam: PRESENT: full ROM Neurological exam: PRESENT: awake Psychiatric exam: PRESENT: appropriate affect Skin exam: PRESENT: intact Results Laboratory Results: 10/18/16 04:07 10/18/16 04:07 10/18/16 10/18/16 04:07 04:07 WBC 12.9 H RBC 3.43 L Hgb 8.1 L Hct 26.0 L MCV 76 L MCH 23.6 L MCHC 31.1 L RDW 20.2 H Plt Count 607 H Seg Neutrophils % Not Reportable Lymphocytes % Not Reportable Monocytes % Not Reportable Eosinophils % Not Reportable Basophils % Not Reportable Absolute Neutrophils Not Reportable Absolute Lymphocytes Not Reportable Absolute Monocytes Not Reportable Absolute Eosinophils Not Reportable Absolute Basophils Not Reportable Sodium 133.7 L Potassium 3.9 Chloride 95 L Carbon Dioxide 28 Anion Gap 11 BUN 12 Creatinine 0.78 Est GFR ( Amer) > 60 Est GFR (Non-Af Amer) > 60 Glucose 79 Calcium 8.6 Phosphorus 5.3 H Magnesium 2.0 Total Bilirubin 0.5 AST 50 ALT 108 H Alkaline Phosphatase 251 H Total Protein 7.2 Albumin 2.6 L 10/15/16 09:13 Blood Blood Culture - Final Yeast, Not Jossie Albicans 10/15/16 09:22 Blood Blood Culture - Final Yeast, Not Jossie Albicans 10/15/16 13:25 Clean Catch Midstream Urine Culture - Final NO GROWTH 2 DAYS Impressions: KUB X-Ray 09/23/16 17:12 IMPRESSION: Tube placement as described. Facial Bones CT 09/27/16 00:00 IMPRESSION: NG tube is identified. No other significant findings. Abdomen/Pelvis CT 10/15/16 00:00 IMPRESSION: 1. Moderate small bowel obstruction pattern persists. Chronic severely dilated large bowel. No gross free air discerned. Lack of oral contrast decreases sensitivity-specificity of this exam. 2. Nonspecific moderate left hydronephrosis -hydroureter and mild right hydronephrosis - hydroureter. This appearance is new/ worsened compared with prior exams. Recommend dynamic contrast CT of the renal system. Chest CT 10/15/16 00:00 IMPRESSION: Small left lower lobar pneumonia/atelectasis, increased. Abnormal CT of the abdomen/pelvis reported separately. Chest X-Ray 10/15/16 08:16 IMPRESSION: Linear basilar atelectasis. Assessment & Plan - Diagnosis (1) Fever Qualifiers: Encounter type: subsequent encounter Is this a current diagnosis for this admission?: Yes Plan: This is likely secondary to fungemia. Patient is growing a non-albicans Jossie species. 10/17/16 therapy was switched to micafungin. Patient is currently afebrile. (2) Gram-positive bacteremia Is this a current diagnosis for this admission?: Yes Plan: Patient received vancomycin from 09/26 through 10/10. It was restarted on the , presumably due to the fever. I am going to stop vancomycin today. We have a source for the fever. (3) Hyperkalemia Is this a current diagnosis for this admission?: Yes Plan: Corrected. Will follow. (4) Hyperphosphatemia Is this a current diagnosis for this admission?: Yes Plan: Slightly improved. Pharmacy will need to address when TPN is restarted. (5) Hyponatremia Is this a current diagnosis for this admission?: Yes Plan: Currently resolved. (6) MRSA bacteremia Is this a current diagnosis for this admission?: Yes Plan: Stop vancomycin. (7) Malnutrition of moderate degree Is this a current diagnosis for this admission?: Yes Plan: Patient is currently on TPN holiday. TPN to be resumed Thursday or Thursday. (8) Small bowel obstruction Is this a current diagnosis for this admission?: Yes Plan: Ultimately, the patient will be transferred to a facility where he can undergo additional resection. (9) Colon cancer Qualifiers: Is this a current diagnosis for this admission?: Yes Plan: Oncology is following. Please refer to the subjective portion of this note for the ultimate plan. (10) Hypomagnesemia Is this a current diagnosis for this admission?: Yes Plan: Corrected. Will follow. - Time Time Spent with patient: 25-34 minutes - Inpatient Certification Medical Necessity: Significant Comorbidiites Make Outpatient Treatment Too Risky , Need Close Monitoring Due to Risk of Patient Decompensation, Need for IV Antibiotics
[2016-10-18] MEDS: MICAFUNGIN SODIUM 100 MG in NORMAL SALINE 100 ML IV SCH (14:12)
[2016-10-18] MEDS: DEXTROSE 5%-1/2 NORMAL SALINE 1,000 ML IV PRN (16:59)
[2016-10-18] MEDS: AMINO ACIDS 5%/D25W 1,000 ML IV PRN (19:36)
[2016-10-18] MEDS: FAT EMULSIONS 250 ML IV SCH (19:36)
[2016-10-19] MEDS: HYDROMORPHONE HCL INJ/PF 2 MG/ML AMPULE IV PRN ×6 (00:10→20:03)
[2016-10-19] MEDS: HEPARIN SOD (PORCINE) 5,000 UNIT/ML 1 ML SYRINGE SUBCUT SCH ×3 (05:59→22:45)
--- NOTE | 2016-10-19 11:53 | PDOC PROGRESS REPORT ---
Subjective Progress Note for:: 10/19/16 Subjective:: The patient is a 41-year-old black male with stage IV adenocarcinoma of the colon. The patient is currently admitted with a small bowel obstruction. The patient has been receiving TPN during this hospitalization which began on September 23, 2016. The patient developed a fever of 103 Fahrenheit on October 16, 2015. Currently, his blood cultures are growing yeast (Jossie, non-albicans) and he is receiving micafungin. Oncology is following closely. At this point in time it is felt that the patient is a candidate for further abdominal resection. We are coordinating his care with Dr. Villa in [place]. Her pager number is [phone]. The patient has been receiving his oncology care with Dr. Veronica Lewis. Her cell phone number is [phone]. While here the patient is being followed by Dr. Sanders and his phone number is . At this point in time we are tentatively attempting surgery on October 30, 2016. [address] Villa rest she would like to see him in clinic on October 23, [address] Sanders thinks that we may be able to transfer the patient to [facility] sometime this week. The patient's picc access has been removed. Picc tip is also growing yeast. Patient remains on a TPN holiday due to fungemia. Patient continues to have bilateral lower abdominal pain but is otherwise w/o any complaints today. HE REFUSED LAB DRAW TODAY. Physical Exam Vital Signs: Temp Pulse Resp BP Pulse Ox 98.5 F 62 16 107/72 96 10/19/16 07:45 10/19/16 07:45 10/19/16 07:45 10/19/16 07:45 10/19/16 07:45 Intake & Output 10/18/16 10/19/16 10/20/16 06:59 06:59 06:59 Intake Total 2700 3300 Output Total 2375 6200 Balance 325 -2900 Weight 58.3 kg 57.9 kg General appearance: PRESENT: no acute distress Head exam: PRESENT: atraumatic Eye exam: PRESENT: EOMI Respiratory exam: PRESENT: clear to auscultation luisa, unlabored Cardiovascular exam: PRESENT: RRR GI/Abdominal exam: PRESENT: firm - No guarding or rebound is noted. Ileostomy site is pink and bag has dark brown/green fluid. Extremities exam: PRESENT: full ROM Musculoskeletal exam: PRESENT: ambulatory Neurological exam: PRESENT: awake Psychiatric exam: PRESENT: appropriate affect Skin exam: PRESENT: intact Results Laboratory Results: 10/18/16 04:07 10/18/16 04:07 10/15/16 11:45 Catheter Tip - Picc Line Catheter Tip Culture - Final Yeast, Not Jossie Albicans Impressions: KUB X-Ray 09/23/16 17:12 IMPRESSION: Tube placement as described. Facial Bones CT 09/27/16 00:00 IMPRESSION: NG tube is identified. No other significant findings. Abdomen/Pelvis CT 10/15/16 00:00 IMPRESSION: 1. Moderate small bowel obstruction pattern persists. Chronic severely dilated large bowel. No gross free air discerned. Lack of oral contrast decreases sensitivity-specificity of this exam. 2. Nonspecific moderate left hydronephrosis -hydroureter and mild right hydronephrosis - hydroureter. This appearance is new/ worsened compared with prior exams. Recommend dynamic contrast CT of the renal system. Chest CT 10/15/16 00:00 IMPRESSION: Small left lower lobar pneumonia/atelectasis, increased. Abnormal CT of the abdomen/pelvis reported separately. Chest X-Ray 10/15/16 08:16 IMPRESSION: Linear basilar atelectasis. Assessment & Plan - Diagnosis (1) Fever Qualifiers: Encounter type: subsequent encounter Is this a current diagnosis for this admission?: Yes Plan: This is likely secondary to fungemia. Patient is growing a non-albicans Jossie species. 10/17/16 therapy was switched to micafungin. Patient is currently afebrile. (2) Gram-positive bacteremia Is this a current diagnosis for this admission?: Yes Plan: Patient received vancomycin from 09/26 through 10/10. It was restarted on the , presumably due to the fever. Vancomycin and imipenem were discontinued 10/18/16. The most recent fever is due to fungemia. (3) Hyperkalemia Is this a current diagnosis for this admission?: Yes Plan: Corrected. Will follow. Apparently, patient refused labs today because oncology felt that they were not necessary. I agree, however, I do need to check them at least every other day to monitor potassium, phosphorus etc. and correct electro lites as needed. (4) Hyperphosphatemia Is this a current diagnosis for this admission?: Yes Plan: Slightly improved. Pharmacy will need to address when TPN is restarted. (5) Hyponatremia Is this a current diagnosis for this admission?: Yes Plan: Currently resolved. See discussion about labs and her hyper kalemia. Will repeat in the morning. (6) MRSA bacteremia Is this a current diagnosis for this admission?: Yes Plan: Stop vancomycin. (7) Malnutrition of moderate degree Is this a current diagnosis for this admission?: Yes Plan: Patient is currently on TPN holiday due to fungemia. (8) Small bowel obstruction Is this a current diagnosis for this admission?: Yes Plan: Ultimately, the patient will be transferred to a facility where he can undergo additional resection. (9) Colon cancer Qualifiers: Is this a current diagnosis for this admission?: Yes Plan: Oncology is following. Please refer to the subjective portion of this note for the ultimate plan. (10) Hypomagnesemia Is this a current diagnosis for this admission?: Yes Plan: Corrected. Will follow. See discussion above re: checking labs. - Time Time Spent with patient: 15-24 minutes - Inpatient Certification Medical Necessity: Significant Comorbidiites Make Outpatient Treatment Too Risky , Need Close Monitoring Due to Risk of Patient Decompensation, Need For IV Fluids, Need for Surgery
[2016-10-19] MEDS: DIPHENHYDRAMINE HCL 50 MG/ML VIAL IV PRN ×2 (14:20→20:05)
[2016-10-19] MEDS: MICAFUNGIN SODIUM 100 MG in NORMAL SALINE 100 ML IV SCH (14:20)
[2016-10-20] MEDS: HYDROMORPHONE HCL INJ/PF 2 MG/ML AMPULE IV PRN ×7 (00:03→23:53)
[2016-10-20] MEDS: DEXTROSE 5%-1/2 NORMAL SALINE 1,000 ML IV PRN ×2 (04:05→20:02)
[2016-10-20] MEDS: DIPHENHYDRAMINE HCL 50 MG/ML VIAL IV PRN ×2 (04:08→23:53)
[2016-10-20] MEDS: HEPARIN SOD (PORCINE) 5,000 UNIT/ML 1 ML SYRINGE SUBCUT SCH ×3 (06:06→22:58)
[2016-10-20 07:50] LABS: HEMATOCRIT 26.6 % (37.9-51.0); HEMOGLOBIN 8.6 g/dL (13.5-17.0); HGB HCT DIFFERENCE -0.8; MEAN CORPUSCULAR HEMOGLOBIN 24.3 pg (27.0-33.4); MEAN CORPUSCULAR HGB CONC 32.3 g/dL (32.0-36.0); MEAN CORPUSCULAR VOLUME 75 fl (80-97); RED BLOOD COUNT 3.54 10^6/uL (4.35-5.55); RED CELL DISTRIBUTION WIDTH 20.2 % (11.5-14.0); WHITE BLOOD COUNT 15.5 10^3/uL (4.0-10.5)
[2016-10-20 08:04] LABS: ALANINE AMINOTRANSFERASE 60 U/L (21-72); ALBUMIN 2.6 g/dL (3.5-5.0); ALKALINE PHOSPHATASE 225 U/L (38-126); ANION GAP 9 (5-19); ASPARTATE AMINO TRANSFERASE 35 U/L (17-59); BILIRUBIN,DIRECT 0.6 mg/dL (0.0-0.4); BILIRUBIN,TOTAL 0.7 mg/dL (0.2-1.3); BLOOD UREA NITROGEN 6 mg/dL (7-20); CALCIUM 8.8 mg/dL (8.4-10.2); CARBON DIOXIDE 30 mmol/L (22-30); CHLORIDE 96 mmol/L (98-107); CREATININE RESULT 0.93 mg/dL (0.52-1.25); GLUCOSE 85 mg/dL (75-110); PHOSPHORUS 5.4 mg/dL (2.5-4.5); POTASSIUM 3.6 mmol/L (3.6-5.0); SODIUM 135.4 mmol/L (137-145); TOTAL PROTEIN 7.3 g/dL (6.3-8.2)
[2016-10-20] MEDS: MAGNESIUM SULFATE/D5W 1 GM/100 ML RTUPB IV SCH ×3 (12:01→14:16)
--- NOTE | 2016-10-20 12:19 | PDOC PROGRESS REPORT ---
Subjective Progress Note for:: 10/20/16 Subjective:: The patient is a 41-year-old black male with stage IV adenocarcinoma of the colon. The patient is currently admitted with a small bowel obstruction. The patient has been receiving TPN during this hospitalization which began on September 23, 2016. The patient developed a fever of 103 Fahrenheit on October 16, 2015. Currently, his blood cultures are growing yeast (Jossie, non-albicans) and he is receiving micafungin. Oncology is following closely. At this point in time it is felt that the patient is a candidate for further abdominal resection. We are coordinating his care with Dr. Villa in [place]. Her pager number is [phone]. The patient has been receiving his oncology care with Dr. Veronica Lewis. Her cell phone number is [phone]. While here the patient is being followed by Dr. Sanders and his phone number is . At this point in time we are tentatively attempting surgery on October 30, 2016. [address] Villa rest she would like to see him in clinic on October 23, [address] Sanders thinks that we may be able to transfer the patient to [facility] sometime this week. The patient's picc access has been removed. Picc tip is also growing yeast. Patient remains on a TPN holiday due to fungemia. Patient continues to have bilateral lower abdominal pain but is otherwise w/o any complaints today. Physical Exam Vital Signs: Temp Pulse Resp BP Pulse Ox 98.4 F 67 17 113/80 98 10/20/16 08:09 10/20/16 08:09 10/20/16 08:09 10/20/16 08:09 10/20/16 08:09 Intake & Output 10/19/16 10/20/16 10/21/16 06:59 06:59 06:59 Intake Total 3300 2600 Output Total 6200 3900 Balance -2900 -1300 Weight 57.9 kg 57.7 kg General appearance: PRESENT: no acute distress, cooperative Head exam: PRESENT: atraumatic Eye exam: PRESENT: EOMI Respiratory exam: PRESENT: clear to auscultation luisa, unlabored Cardiovascular exam: PRESENT: RRR GI/Abdominal exam: PRESENT: firm - No bs today. Musculoskeletal exam: PRESENT: ambulatory Neurological exam: PRESENT: alert, awake Psychiatric exam: PRESENT: appropriate affect Skin exam: PRESENT: intact - Dry Results Laboratory Results: 10/20/16 07:39 10/20/16 07:39 10/20/16 10/20/16 10/20/16 07:39 07:39 07:39 WBC 15.5 H RBC 3.54 L Hgb 8.6 L Hct 26.6 L MCV 75 L MCH 24.3 L MCHC 32.3 RDW 20.2 H Plt Count 641 H Sodium 135.4 L Potassium 3.6 Chloride 96 L Carbon Dioxide 30 Anion Gap 9 BUN 6 L Creatinine 0.93 Est GFR ( Amer) > 60 Est GFR (Non-Af Amer) > 60 Glucose 85 Calcium 8.8 Phosphorus 5.4 H Magnesium 1.5 L Total Bilirubin 0.7 AST 35 ALT 60 Alkaline Phosphatase 225 H Total Protein 7.3 Albumin 2.6 L Impressions: KUB X-Ray 09/23/16 17:12 IMPRESSION: Tube placement as described. Facial Bones CT 09/27/16 00:00 IMPRESSION: NG tube is identified. No other significant findings. Abdomen/Pelvis CT 10/15/16 00:00 IMPRESSION: 1. Moderate small bowel obstruction pattern persists. Chronic severely dilated large bowel. No gross free air discerned. Lack of oral contrast decreases sensitivity-specificity of this exam. 2. Nonspecific moderate left hydronephrosis -hydroureter and mild right hydronephrosis - hydroureter. This appearance is new/ worsened compared with prior exams. Recommend dynamic contrast CT of the renal system. Chest CT 10/15/16 00:00 IMPRESSION: Small left lower lobar pneumonia/atelectasis, increased. Abnormal CT of the abdomen/pelvis reported separately. Chest X-Ray 10/15/16 08:16 IMPRESSION: Linear basilar atelectasis. Assessment & Plan - Diagnosis (1) Fever Qualifiers: Encounter type: subsequent encounter Is this a current diagnosis for this admission?: Yes Plan: This is likely secondary to fungemia. Patient is growing a non-albicans Jossie species. 10/17/16 therapy was switched to micafungin. Patient is currently afebrile. (2) Gram-positive bacteremia Is this a current diagnosis for this admission?: Yes Plan: Patient received vancomycin from 09/26 through 10/10. It was restarted on the , presumably due to the fever. Vancomycin and imipenem were discontinued 10/18/16. The most recent fever appears to be due to fungemia. (3) Hyperkalemia Is this a current diagnosis for this admission?: Yes Plan: Corrected. Potassium today is 3.6. (4) Hyperphosphatemia Is this a current diagnosis for this admission?: Yes Plan: Stable at 5.4 today. Pharmacy will need to address when TPN is restarted. (5) Hyponatremia Is this a current diagnosis for this admission?: Yes Plan: Currently resolved. Na today is 135.4. (6) MRSA bacteremia Is this a current diagnosis for this admission?: Yes Plan: See above, patient has completed vancomycin from 09/26-10/10.. (7) Malnutrition of moderate degree Is this a current diagnosis for this admission?: Yes Plan: Patient is currently on TPN holiday due to fungemia. (8) Small bowel obstruction Is this a current diagnosis for this admission?: Yes Plan: Ultimately, the patient will be transferred to a facility where he can undergo additional resection. (9) Colon cancer Qualifiers: Is this a current diagnosis for this admission?: Yes Plan: Oncology is following. Please refer to the subjective portion of this note for the ultimate plan. (10) Hypomagnesemia Is this a current diagnosis for this admission?: Yes Plan: Magnesium was low this morning at 1.5. The patient will receive 3 g of intravenous magnesium today. - Time Time Spent with patient: 15-24 minutes - Inpatient Certification Medical Necessity: Significant Comorbidiites Make Outpatient Treatment Too Risky , Need Close Monitoring Due to Risk of Patient Decompensation, Need For IV Fluids, Need for IV Antibiotics, Risk of Complication if Not Cared For in Hospital
[2016-10-20] MEDS: MICAFUNGIN SODIUM 100 MG in NORMAL SALINE 100 ML IV SCH (15:20)
[2016-10-21] MEDS: HYDROMORPHONE HCL INJ/PF 2 MG/ML AMPULE IV PRN ×5 (03:57→20:13)
[2016-10-21] MEDS: HEPARIN SOD (PORCINE) 5,000 UNIT/ML 1 ML SYRINGE SUBCUT SCH ×3 (05:28→22:29)
[2016-10-21] MEDS: DIPHENHYDRAMINE HCL 50 MG/ML VIAL IV PRN ×2 (06:21→12:13)
--- NOTE | 2016-10-21 08:01 | PDOC PROGRESS REPORT ---
Subjective Progress Note for:: 10/21/16 Subjective:: No acute events overnight, patient has been doing well, still getting up and out of the room, no fevers now for about 4-5 days. Physical Exam Vital Signs: Temp Pulse Resp BP Pulse Ox 98.4 F 71 19 116/78 100 10/20/16 20:00 10/20/16 20:00 10/20/16 20:00 10/20/16 20:00 10/20/16 20:00 Intake & Output 10/20/16 10/21/16 10/22/16 06:59 06:59 06:59 Intake Total 2600 2400 Output Total 3900 1550 Balance -1300 850 Weight 57.7 kg General appearance: PRESENT: no acute distress, well-developed, well-nourished Head exam: PRESENT: atraumatic, normocephalic Eye exam: PRESENT: conjunctiva pink, EOMI, PERRLA. ABSENT: scleral icterus Ear exam: PRESENT: normal external ear exam Mouth exam: PRESENT: moist, tongue midline Neck exam: ABSENT: carotid bruit, JVD, lymphadenopathy, thyromegaly Respiratory exam: PRESENT: clear to auscultation luisa. ABSENT: rales, rhonchi, wheezes Cardiovascular exam: PRESENT: RRR. ABSENT: diastolic murmur, rubs, systolic murmur Pulses: PRESENT: normal dorsalis pedis pul Vascular exam: PRESENT: normal capillary refill GI/Abdominal exam: PRESENT: normal bowel sounds, soft. ABSENT: distended, guarding, mass, organolmegaly, rebound, tenderness Rectal exam: PRESENT: deferred Extremities exam: PRESENT: full ROM. ABSENT: calf tenderness, clubbing, pedal edema Neurological exam: PRESENT: alert, awake, oriented to person, oriented to place , oriented to time, oriented to situation, CN II-XII grossly intact. ABSENT: motor sensory deficit Psychiatric exam: PRESENT: appropriate affect, normal mood. ABSENT: homicidal ideation, suicidal ideation Skin exam: PRESENT: dry, intact, warm. ABSENT: cyanosis, rash Results Laboratory Results: 10/20/16 07:39 10/20/16 07:39 10/20/16 10/20/16 10/21/16 07:39 07:39 05:11 Sodium 135.4 L Potassium 3.6 Chloride 96 L Carbon Dioxide 30 Anion Gap 9 BUN 6 L Creatinine 0.93 Est GFR ( Amer) > 60 Est GFR (Non-Af Amer) > 60 Glucose 85 Calcium 8.8 Phosphorus 5.4 H Magnesium 1.5 L 2.0 Total Bilirubin 0.7 AST 35 ALT 60 Alkaline Phosphatase 225 H Total Protein 7.3 Albumin 2.6 L Impressions: KUB X-Ray 09/23/16 17:12 IMPRESSION: Tube placement as described. Facial Bones CT 09/27/16 00:00 IMPRESSION: NG tube is identified. No other significant findings. Abdomen/Pelvis CT 10/15/16 00:00 IMPRESSION: 1. Moderate small bowel obstruction pattern persists. Chronic severely dilated large bowel. No gross free air discerned. Lack of oral contrast decreases sensitivity-specificity of this exam. 2. Nonspecific moderate left hydronephrosis -hydroureter and mild right hydronephrosis - hydroureter. This appearance is new/ worsened compared with prior exams. Recommend dynamic contrast CT of the renal system. Chest CT 10/15/16 00:00 IMPRESSION: Small left lower lobar pneumonia/atelectasis, increased. Abnormal CT of the abdomen/pelvis reported separately. Chest X-Ray 10/15/16 08:16 IMPRESSION: Linear basilar atelectasis. Assessment & Plan - Diagnosis (1) Small bowel obstruction Is this a current diagnosis for this admission?: Yes Plan: Continued, plan for surgery in [place], Dr. Villa, I put a call into her this morning, waiting to hear back. We should have transfer to [place] this week sometime. We will find out how long/how any days of antifungal therapy needed prior to consideration of a surgical approach. (2) Colon cancer metastasized to liver Is this a current diagnosis for this admission?: Yes Plan: Surgery planned, thereafter if patient recovers he would be candidate for further chemotherapy. - Time Time Spent with patient: 35 or more minutes Critical Time spent with patient: 35 or more minutes
--- NOTE | 2016-10-21 13:29 | RADIOLOGY REPORT (SQ) ---
EXAM DESCRIPTION: PICC INSERTION; U/S GUIDE FOR VASCULAR ACCESS; FLUORO/CV PLACEMENT COMPLETED DATE/TIME: 10/21/2016 1:09 pm REASON FOR STUDY: resume TPN; IV ACCESS; RESUME TPN COMPARISON: AP chest 10/15/2016 FLUOROSCOPY TIME: 45 seconds 1 ultrasound and 1 digital chest images saved to PACS. TECHNIQUE: Fluoroscopic and ultrasound guided PICC placement. LIMITATIONS: None. PROCEDURE: After written consent and assessment were obtained, the patient was brought into the fluo roscopy room and place supine on the table. Ultrasound was used on the patient's left arm for PICC a ccess. The left arm was prepped and draped in a sterile fashion along with the ultrasound probe. The entry site was anesthetized with 1% lidocaine. A 21 gauge 7 cm needle was advanced through the skin a nd into the basilic vein under live ultrasound guidance. An ultrasound image was saved to PACS confi rming access site. A .018 guide wire was then inserted through the needle and into the venous system . The needle was the removed and an 11 blade scalpel was used to make a 1cm skin incision. A 5 fr pe el-away sheath was advanced over the wire and into the venous system. A measurement was then made usi ng the existing wire and live fluoroscopic guidance. The wire was then removed and the trimmed. The P ICC was advanced through the peel-away sheath and into the venous system. The peel-away sheath was re moved and the catheter was adhered to the patients arm with a stat lock. The catheter was then aspira brandi and flushed and a sterile bandage was placed over the access site. A fluoroscopic spot image was saved to PACS confirming the catheter tip within the superior vena cava. IMPRESSION: SUCCESSFUL PLACEMENT OF A 5 FR DUAL LUMEN 38 CM PICC IN THE LEFT BASILIC VEIN. COMMENT: Patient medication list reviewed: Yes- Quality ID# 130:Eligible professional attests to doc umenting in the medical record they obtained, updated, or reviewed the patient's current medications. . Quality ID 145: Final reports for procedures using fluoroscopy that document radiation exposure marc nancy, or exposure time and number of fluorographic images (if radiation exposure indices are not avail able) Quality ID #76: The patient was prepped and draped using maximum sterile barrier technique including cap, mask, sterile gown, sterile gloves, a large sterile sheet, hand hygiene, and 2% Chlorhexidine fo r cutaneous antisepsis. When ultrasound is used, sterile ultrasound techniques are followed requiring sterile gel and sterile probes. TECHNICAL DOCUMENTATION: JOB ID: [id number] [employer]- All Rights Reserved
[2016-10-21] MEDS: MICAFUNGIN SODIUM 100 MG in NORMAL SALINE 100 ML IV SCH (14:04)
--- NOTE | 2016-10-21 19:35 | PDOC PROGRESS REPORT ---
Subjective Progress Note for:: 10/21/16 Subjective:: She is currently doing well. Patient was told that he will be started back on his TPN and he looks forward to that as he is lost some weight since being off the TPN. Patient denies any pain at this time. Physical Exam Vital Signs: Temp Pulse Resp BP Pulse Ox 98.2 F 59 L 16 119/81 97 10/21/16 08:33 10/21/16 08:33 10/21/16 08:33 10/21/16 08:33 10/21/16 08:33 Intake & Output 10/20/16 10/21/16 10/22/16 06:59 06:59 06:59 Intake Total 2600 2400 1250 Output Total 3900 1550 1600 Balance -1300 850 -350 Weight 57.7 kg General appearance: PRESENT: no acute distress, thin Head exam: PRESENT: normocephalic Throat exam: PRESENT: other - G-tube in place to suction with bilious drainage Neck exam: PRESENT: full ROM Respiratory exam: PRESENT: clear to auscultation luisa Cardiovascular exam: PRESENT: RRR - Ileostomy in place pink stoma output decreased bowel sounds GI/Abdominal exam: PRESENT: other Rectal exam: PRESENT: deferred Extremities exam: ABSENT: pedal edema Musculoskeletal exam: PRESENT: ambulatory Neurological exam: PRESENT: alert, awake, oriented to person, oriented to place , oriented to time, CN II-XII grossly intact Psychiatric exam: PRESENT: normal mood Skin exam: PRESENT: warm Results Laboratory Results: 10/20/16 07:39 10/20/16 07:39 10/21/16 05:11 Magnesium 2.0 10/15/16 09:13 Blood Yeast/Fungus Identification - Final Not Reportable 10/15/16 09:13 Blood Yeast/Fungus Identification - Final Not Reportable 10/15/16 09:13 Blood Yeast/Fungus Identification - Final Not Reportable 10/15/16 09:13 Blood Yeast/Fungus Identification - Final Not Reportable Impressions: KUB X-Ray 09/23/16 17:12 IMPRESSION: Tube placement as described. Facial Bones CT 09/27/16 00:00 IMPRESSION: NG tube is identified. No other significant findings. Abdomen/Pelvis CT 10/15/16 00:00 IMPRESSION: 1. Moderate small bowel obstruction pattern persists. Chronic severely dilated large bowel. No gross free air discerned. Lack of oral contrast decreases sensitivity-specificity of this exam. 2. Nonspecific moderate left hydronephrosis -hydroureter and mild right hydronephrosis - hydroureter. This appearance is new/ worsened compared with prior exams. Recommend dynamic contrast CT of the renal system. Chest CT 10/15/16 00:00 IMPRESSION: Small left lower lobar pneumonia/atelectasis, increased. Abnormal CT of the abdomen/pelvis reported separately. Chest X-Ray 10/15/16 08:16 IMPRESSION: Linear basilar atelectasis. Guidance Fluoroscopy 10/21/16 00:00 IMPRESSION: SUCCESSFUL PLACEMENT OF A 5 FR DUAL LUMEN 38 CM PICC IN THE LEFT BASILIC VEIN. Interventional Vascular Procedure 10/21/16 00:00 IMPRESSION: SUCCESSFUL PLACEMENT OF A 5 FR DUAL LUMEN 38 CM PICC IN THE LEFT BASILIC VEIN. PICC Line Insertion 10/21/16 00:00 IMPRESSION: SUCCESSFUL PLACEMENT OF A 5 FR DUAL LUMEN 38 CM PICC IN THE LEFT BASILIC VEIN. Assessment & Plan - Diagnosis (1) Fungemia Is this a current diagnosis for this admission?: Yes Plan: Patient was found to be febrile and with fungemia. Patient is growing non- albicans Jossie species. Patient is on micafungin. Microbiology lab was called to have the sample sent out for further speciation. Oncology contacted me in regards to patient and ask for patient to be resumed on his TPN in preparation for transfer to [facility] for surgery on October 30. (2) Small bowel obstruction Is this a current diagnosis for this admission?: Yes Plan: Likely related to his adenocarcinoma. Plan is for transfer to [facility] for surgical procedure on October 30. Procedure was postponed at this time as patient was found to have fungemia and is currently being treated. Patient is still n.p.o. with NG tube in place to low intermittent suction. PICC line is being replaced today at 10/21/2016 and patient is being resumed on TPN. (3) Colon cancer Qualifiers: Is this a current diagnosis for this admission?: Yes Plan: Is being followed by oncology. Plan is for transferred divided for further evaluation and treatment in October 30. (4) Leukocytosis Qualifiers: Leukocytosis type: unspecified Qualified Code(s): D72.829 - Elevated white blood cell count, unspecified Is this a current diagnosis for this admission?: Yes Plan: Leukocytosis has improved since patient has been on micafungin for his fungemia. (5) Malnutrition of moderate degree Is this a current diagnosis for this admission?: Yes Plan: She has lost weight since not being on the TPN. PICC line is being placed today and patient is being resumed on his TPN. Patient has not been able to eat due to his small bowel obstruction most likely secondary to his adenocarcinoma. (6) Hypomagnesemia Is this a current diagnosis for this admission?: Yes Plan: Resolved we will continue to follow. Patient magnesium level is 2. (7) Thrombocytosis Is this a current diagnosis for this admission?: Yes Plan: Patient continues to have persistent thrombocytosis which could be due to his underlying malignancy and/or infection. He is on low molecular weight heparin. (8) Anemia of chronic disease Is this a current diagnosis for this admission?: Yes Plan: This is multifactorial is most likely related to his colon cancer. Patient has received iron infusion during this admission. Patient hemoglobin has been stable at 8.6. (9) Gram-positive bacteremia Is this a current diagnosis for this admission?: Yes Plan: She was treated with 7 days of vancomycin blood cultures were negative. Multiple cardiac echo transthoracic did not show any vegetations. (10) Hyperphosphatemia Is this a current diagnosis for this admission?: Yes Plan: Improved which changes of the TPN. Phosphorus level is still 5.4. Will resume TPN without phosphorus. (11) DVT prophylaxis Is this a current diagnosis for this admission?: Yes Plan: Continue subcutaneous heparin. - Time Time Spent with patient: Less than 15 minutes Anticipated discharge: [facility]: Other - Plan is for transfer divided on October 30 for further evaluation and treatment of his small bowel bowel obstruction most likely due to his adenocarcinoma of the colon. Patient had a PICC line placed today and has been resumed on his TPN. This was recommended by the surgeon.
[2016-10-21] MEDS: NORMAL SALINE 10 ML SDV (SCHEDULED) IV SCH (22:28)
[2016-10-21] MEDS: AMINO ACIDS 5%/D25W 1,000 ML IV PRN (22:39)
[2016-10-22] MEDS ORDERED: HYDROMORPHONE HCL INJ/PF 2 MG/ML AMPULE ONE ×2 (00:36→03:59)
[2016-10-22] MEDS: DIPHENHYDRAMINE HCL 50 MG/ML VIAL IV PRN ×3 (00:40→18:56)
[2016-10-22] MEDS: HYDROMORPHONE HCL INJ/PF 2 MG/ML AMPULE IV PRN ×5 (04:17→20:10)
[2016-10-22] MEDS: HEPARIN SOD (PORCINE) 5,000 UNIT/ML 1 ML SYRINGE SUBCUT SCH ×3 (05:59→22:21)
--- NOTE | 2016-10-22 08:36 | PDOC PROGRESS REPORT ---
Subjective Progress Note for:: 10/22/16 Subjective:: Had a long conversation with Dr. Burton yesterday, spent about 45 minutes in discussion and coordination of care today, patient will have surgery planned on October 31, we would attempt transfer later this week, she recommended PICC line placement as well as reinitiation of TPN, continued antifungal therapy with micafungin, patient will stay on micafungin until time of surgery. He probably will continue after surgery as well with that. Physical Exam Vital Signs: Temp Pulse Resp BP Pulse Ox 98.8 F 73 14 121/85 98 10/21/16 20:24 10/21/16 20:24 10/21/16 20:24 10/21/16 20:24 10/21/16 20:24 Intake & Output 10/21/16 10/22/16 10/23/16 06:59 06:59 06:59 Intake Total 2400 1460 Output Total 1550 2600 Balance 850 -1140 Weight 57.7 kg General appearance: PRESENT: no acute distress, well-developed, well-nourished Head exam: PRESENT: atraumatic, normocephalic Eye exam: PRESENT: conjunctiva pink, EOMI, PERRLA. ABSENT: scleral icterus Ear exam: PRESENT: normal external ear exam Mouth exam: PRESENT: moist, tongue midline Neck exam: ABSENT: carotid bruit, JVD, lymphadenopathy, thyromegaly Respiratory exam: PRESENT: clear to auscultation luisa. ABSENT: rales, rhonchi, wheezes Cardiovascular exam: PRESENT: RRR. ABSENT: diastolic murmur, rubs, systolic murmur Pulses: PRESENT: normal dorsalis pedis pul Vascular exam: PRESENT: normal capillary refill GI/Abdominal exam: PRESENT: normal bowel sounds, soft. ABSENT: distended, guarding, mass, organolmegaly, rebound, tenderness Rectal exam: PRESENT: deferred Extremities exam: PRESENT: full ROM. ABSENT: calf tenderness, clubbing, pedal edema Neurological exam: PRESENT: alert, awake, oriented to person, oriented to place , oriented to time, oriented to situation, CN II-XII grossly intact. ABSENT: motor sensory deficit Psychiatric exam: PRESENT: appropriate affect, normal mood. ABSENT: homicidal ideation, suicidal ideation Skin exam: PRESENT: dry, intact, warm. ABSENT: cyanosis, rash Results Laboratory Results: 10/20/16 07:39 10/20/16 07:39 10/15/16 09:13 Blood Yeast/Fungus Identification - Final Not Reportable 10/15/16 09:13 Blood Yeast/Fungus Identification - Final Not Reportable 10/15/16 09:13 Blood Yeast/Fungus Identification - Final Not Reportable 10/15/16 09:13 Blood Yeast/Fungus Identification - Final Not Reportable Impressions: KUB X-Ray 09/23/16 17:12 IMPRESSION: Tube placement as described. Facial Bones CT 09/27/16 00:00 IMPRESSION: NG tube is identified. No other significant findings. Abdomen/Pelvis CT 10/15/16 00:00 IMPRESSION: 1. Moderate small bowel obstruction pattern persists. Chronic severely dilated large bowel. No gross free air discerned. Lack of oral contrast decreases sensitivity-specificity of this exam. 2. Nonspecific moderate left hydronephrosis -hydroureter and mild right hydronephrosis - hydroureter. This appearance is new/ worsened compared with prior exams. Recommend dynamic contrast CT of the renal system. Chest CT 10/15/16 00:00 IMPRESSION: Small left lower lobar pneumonia/atelectasis, increased. Abnormal CT of the abdomen/pelvis reported separately. Chest X-Ray 10/15/16 08:16 IMPRESSION: Linear basilar atelectasis. Guidance Fluoroscopy 10/21/16 00:00 IMPRESSION: SUCCESSFUL PLACEMENT OF A 5 FR DUAL LUMEN 38 CM PICC IN THE LEFT BASILIC VEIN. Interventional Vascular Procedure 10/21/16 00:00 IMPRESSION: SUCCESSFUL PLACEMENT OF A 5 FR DUAL LUMEN 38 CM PICC IN THE LEFT BASILIC VEIN. PICC Line Insertion 10/21/16 00:00 IMPRESSION: SUCCESSFUL PLACEMENT OF A 5 FR DUAL LUMEN 38 CM PICC IN THE LEFT BASILIC VEIN. Assessment & Plan - Diagnosis (1) Small bowel obstruction Is this a current diagnosis for this admission?: Yes Plan: Continue with current therapy, changes made as above. (2) Colon cancer metastasized to liver Is this a current diagnosis for this admission?: Yes Plan: Surgery planned as above - Time Time Spent with patient: 35 or more minutes Critical Time spent with patient: 35 or more minutes
[2016-10-22] MEDS: NORMAL SALINE 10 ML SDV (SCHEDULED) IV SCH ×2 (09:07→22:21)
--- NOTE | 2016-10-22 14:39 | PDOC PROGRESS REPORT ---
Subjective Progress Note for:: 10/22/16 Subjective:: Patient resting comfortably. Per the nurse his is doing well and has no needs at this time. Physical Exam Vital Signs: Temp Pulse Resp BP Pulse Ox 98.1 F 71 18 114/84 100 10/22/16 11:38 10/22/16 11:38 10/22/16 11:38 10/22/16 11:38 10/22/16 11:38 Intake & Output 10/21/16 10/22/16 10/23/16 06:59 06:59 06:59 Intake Total 2400 1460 Output Total 1550 2600 Balance 850 -1140 Weight 57.7 kg General appearance: PRESENT: no acute distress, cooperative, thin Head exam: PRESENT: normocephalic Neck exam: PRESENT: full ROM Respiratory exam: PRESENT: clear to auscultation luisa, unlabored Cardiovascular exam: PRESENT: RRR - Diminished bowel sounds. Ileostomy in place pink stoma with output. NG tube in place low intermittent suction. Rectal exam: PRESENT: deferred Extremities exam: ABSENT: tenderness Musculoskeletal exam: PRESENT: full ROM - Sleeping, normal inspection. ABSENT: tenderness Neurological exam: PRESENT: other - Sleeping Skin exam: PRESENT: warm Results Laboratory Results: 10/20/16 07:39 10/20/16 07:39 Impressions: KUB X-Ray 09/23/16 17:12 IMPRESSION: Tube placement as described. Facial Bones CT 09/27/16 00:00 IMPRESSION: NG tube is identified. No other significant findings. Abdomen/Pelvis CT 10/15/16 00:00 IMPRESSION: 1. Moderate small bowel obstruction pattern persists. Chronic severely dilated large bowel. No gross free air discerned. Lack of oral contrast decreases sensitivity-specificity of this exam. 2. Nonspecific moderate left hydronephrosis -hydroureter and mild right hydronephrosis - hydroureter. This appearance is new/ worsened compared with prior exams. Recommend dynamic contrast CT of the renal system. Chest CT 10/15/16 00:00 IMPRESSION: Small left lower lobar pneumonia/atelectasis, increased. Abnormal CT of the abdomen/pelvis reported separately. Chest X-Ray 10/15/16 08:16 IMPRESSION: Linear basilar atelectasis. Guidance Fluoroscopy 10/21/16 00:00 IMPRESSION: SUCCESSFUL PLACEMENT OF A 5 FR DUAL LUMEN 38 CM PICC IN THE LEFT BASILIC VEIN. Interventional Vascular Procedure 10/21/16 00:00 IMPRESSION: SUCCESSFUL PLACEMENT OF A 5 FR DUAL LUMEN 38 CM PICC IN THE LEFT BASILIC VEIN. PICC Line Insertion 10/21/16 00:00 IMPRESSION: SUCCESSFUL PLACEMENT OF A 5 FR DUAL LUMEN 38 CM PICC IN THE LEFT BASILIC VEIN. Assessment & Plan - Diagnosis (1) Fungemia Is this a current diagnosis for this admission?: Yes Plan: Patient was found to be febrile and with fungemia. Patient is growing non- albicans Jossie species. Patient is on micafungin. Microbiology lab was called to have the sample sent out for further speciation-awaiting results. Patient is no longer febrile. Patient restarted on TPN on 10/21/2016. (2) Small bowel obstruction Is this a current diagnosis for this admission?: Yes Plan: Likely related to his adenocarcinoma. Plan is for transfer to [facility] for surgical procedure on October 30. Procedure was postponed at this time as patient was found to have fungemia and is currently being treated. Patient is still n.p.o. with NG tube in place to low intermittent suction. PICC line is being replaced today at 10/21/2016 TPN at a lower rate will gradually increase. (3) Colon cancer Qualifiers: Is this a current diagnosis for this admission?: Yes Plan: Is being followed by oncology. Plan is for transferred to [facility] for further evaluation and treatment in October 30. (4) Leukocytosis Qualifiers: Leukocytosis type: unspecified Qualified Code(s): D72.829 - Elevated white blood cell count, unspecified Is this a current diagnosis for this admission?: Yes Plan: Leukocytosis has improved since patient has been on micafungin for his fungemia. Patient otherwise has persistent leukocytosis which could be due to his underlying malignancy and/or reactive to his anemia. (5) Malnutrition of moderate degree Is this a current diagnosis for this admission?: Yes Plan: Patient was placed on a TPN medication after developing fungemia. Picc was placed on 10/22/2016 and patient was restarted on TPN. Malnutrition due to colon cancer complicated by small bowel obstruction resulting in inability to eat (6) Hypomagnesemia Is this a current diagnosis for this admission?: Yes Plan: Resolved. Patient receiving replacement in TPN. (7) Thrombocytosis Is this a current diagnosis for this admission?: Yes Plan: Patient continues to have persistent thrombocytosis which could be due to his underlying malignancy and/or infection. He is on low molecular weight heparin. (8) Anemia of chronic disease Is this a current diagnosis for this admission?: Yes (9) Gram-positive bacteremia Is this a current diagnosis for this admission?: Yes Plan: He completed treated with 7 days of vancomycin. Repeat blood cultures were negative. Multiple cardiac echo transthoracic did not show any vegetations. (10) Hyperphosphatemia Is this a current diagnosis for this admission?: Yes Plan: Improved with changes in the TPN however still elevated. Will continue to monitor. (11) DVT prophylaxis Is this a current diagnosis for this admission?: Yes Plan: Continue subcutaneous heparin. - Time Time Spent with patient: Less than 15 minutes Anticipated discharge: [facility] - Plan to transfer to [facility] at the end of the week for surgery.
[2016-10-22] MEDS: MICAFUNGIN SODIUM 100 MG in NORMAL SALINE 100 ML IV SCH (15:20)
[2016-10-22] MEDS: NORMAL SALINE 10 ML SDV (AFTER EACH USE) IV PRN (16:17)
[2016-10-22] MEDS: AMINO ACIDS 5%/D25W 1,000 ML IV PRN (20:10)
[2016-10-23] MEDS: HYDROMORPHONE HCL INJ/PF 2 MG/ML AMPULE IV PRN ×6 (00:13→20:15)
[2016-10-23] MEDS: DIPHENHYDRAMINE HCL 50 MG/ML VIAL IV PRN ×2 (01:28→12:22)
[2016-10-23] MEDS: HEPARIN SOD (PORCINE) 5,000 UNIT/ML 1 ML SYRINGE SUBCUT SCH ×3 (06:26→22:35)
[2016-10-23 07:28] LABS: ANION GAP 12 (5-19); BLOOD UREA NITROGEN 10 mg/dL (7-20); CALCIUM 9.4 mg/dL (8.4-10.2); CARBON DIOXIDE 32 mmol/L (22-30); CHLORIDE 95 mmol/L (98-107); CREATININE RESULT 1.02 mg/dL (0.52-1.25); GLUCOSE 71 mg/dL (75-110); PHOSPHORUS 4.9 mg/dL (2.5-4.5); POTASSIUM 3.5 mmol/L (3.6-5.0); SODIUM 139.3 mmol/L (137-145)
--- NOTE | 2016-10-23 08:26 | PDOC PROGRESS REPORT ---
Subjective Progress Note for:: 10/23/16 Subjective:: NO acute events overnight, pt stable Physical Exam Vital Signs: Temp Pulse Resp BP Pulse Ox 98.8 F 88 15 124/75 98 10/23/16 04:14 10/23/16 04:14 10/23/16 04:14 10/23/16 04:14 10/23/16 04:14 Intake & Output 10/22/16 10/23/16 10/24/16 06:59 06:59 06:59 Intake Total 1460 1350 Output Total 2600 2610 Balance -1140 -1260 Weight 57.7 kg General appearance: PRESENT: no acute distress, well-developed, well-nourished Head exam: PRESENT: atraumatic, normocephalic Eye exam: PRESENT: conjunctiva pink, EOMI, PERRLA. ABSENT: scleral icterus Ear exam: PRESENT: normal external ear exam Mouth exam: PRESENT: moist, tongue midline Neck exam: ABSENT: carotid bruit, JVD, lymphadenopathy, thyromegaly Respiratory exam: PRESENT: clear to auscultation luisa. ABSENT: rales, rhonchi, wheezes Cardiovascular exam: PRESENT: RRR. ABSENT: diastolic murmur, rubs, systolic murmur Pulses: PRESENT: normal dorsalis pedis pul Vascular exam: PRESENT: normal capillary refill GI/Abdominal exam: PRESENT: normal bowel sounds, soft. ABSENT: distended, guarding, mass, organolmegaly, rebound, tenderness Rectal exam: PRESENT: deferred Extremities exam: PRESENT: full ROM. ABSENT: calf tenderness, clubbing, pedal edema Neurological exam: PRESENT: alert, awake, oriented to person, oriented to place , oriented to time, oriented to situation, CN II-XII grossly intact. ABSENT: motor sensory deficit Psychiatric exam: PRESENT: appropriate affect, normal mood. ABSENT: homicidal ideation, suicidal ideation Skin exam: PRESENT: dry, intact, warm. ABSENT: cyanosis, rash Results Laboratory Results: 10/20/16 07:39 10/23/16 06:20 10/22/16 10/23/16 15:15 06:20 Sodium 139.3 Potassium 3.5 L Chloride 95 L Carbon Dioxide 32 H Anion Gap 12 BUN 10 Creatinine 1.02 Est GFR ( Amer) > 60 Est GFR (Non-Af Amer) > 60 Glucose 71 L Calcium 9.4 Phosphorus 4.9 H Magnesium 1.8 Impressions: KUB X-Ray 09/23/16 17:12 IMPRESSION: Tube placement as described. Facial Bones CT 09/27/16 00:00 IMPRESSION: NG tube is identified. No other significant findings. Abdomen/Pelvis CT 10/15/16 00:00 IMPRESSION: 1. Moderate small bowel obstruction pattern persists. Chronic severely dilated large bowel. No gross free air discerned. Lack of oral contrast decreases sensitivity-specificity of this exam. 2. Nonspecific moderate left hydronephrosis -hydroureter and mild right hydronephrosis - hydroureter. This appearance is new/ worsened compared with prior exams. Recommend dynamic contrast CT of the renal system. Chest CT 10/15/16 00:00 IMPRESSION: Small left lower lobar pneumonia/atelectasis, increased. Abnormal CT of the abdomen/pelvis reported separately. Chest X-Ray 10/15/16 08:16 IMPRESSION: Linear basilar atelectasis. Guidance Fluoroscopy 10/21/16 00:00 IMPRESSION: SUCCESSFUL PLACEMENT OF A 5 FR DUAL LUMEN 38 CM PICC IN THE LEFT BASILIC VEIN. Interventional Vascular Procedure 10/21/16 00:00 IMPRESSION: SUCCESSFUL PLACEMENT OF A 5 FR DUAL LUMEN 38 CM PICC IN THE LEFT BASILIC VEIN. PICC Line Insertion 10/21/16 00:00 IMPRESSION: SUCCESSFUL PLACEMENT OF A 5 FR DUAL LUMEN 38 CM PICC IN THE LEFT BASILIC VEIN. Assessment & Plan - Diagnosis (1) Small bowel obstruction Is this a current diagnosis for this admission?: Yes Plan: Further surgery at [facility] planned, cont NGT suction and TPN (2) Colon cancer metastasized to liver Is this a current diagnosis for this admission?: Yes Plan: Surgery planned then hopeful restart chemo as outpt (3) Fungemia Is this a current diagnosis for this admission?: Yes Plan: Non albicans fungemia, ID not yet back, cont micafungin. - Time Time Spent with patient: 25-34 minutes Critical Time spent with patient: 25-34 minutes
[2016-10-23] MEDS: FAT EMULSIONS 250 ML IV SCH (10:21)
[2016-10-23] MEDS: NORMAL SALINE 10 ML SDV (SCHEDULED) IV SCH ×2 (10:24→22:40)
[2016-10-23] MEDS: MICAFUNGIN SODIUM 100 MG in NORMAL SALINE 100 ML IV SCH (14:52)
[2016-10-23] MEDS: AMINO ACIDS 5%/D25W 1,000 ML IV PRN (16:07)
--- NOTE | 2016-10-23 23:23 | PDOC PROGRESS REPORT ---
Subjective Progress Note for:: 10/23/16 Subjective:: Patient doing well today and has no complaints. Physical Exam Vital Signs: Temp Pulse Resp BP Pulse Ox 97.6 F 72 19 137/74 H 100 10/23/16 20:09 10/23/16 20:09 10/23/16 20:09 10/23/16 20:09 10/23/16 20:09 Intake & Output 10/22/16 10/23/16 10/24/16 06:59 06:59 06:59 Intake Total 1460 1350 770 Output Total 2600 2610 900 Balance -1140 -1260 -130 Weight 57.7 kg General appearance: PRESENT: no acute distress, thin, other - Bitemporal wasting Head exam: PRESENT: normocephalic Eye exam: PRESENT: EOMI Mouth exam: PRESENT: dry mucosa Respiratory exam: PRESENT: clear to auscultation luisa, unlabored Cardiovascular exam: PRESENT: RRR GI/Abdominal exam: PRESENT: hypoactive bowel sounds - iliostomy dark pink stoma with air in bag. NG tube in place Rectal exam: PRESENT: deferred Extremities exam: ABSENT: pedal edema, tenderness Musculoskeletal exam: PRESENT: full ROM Neurological exam: PRESENT: alert, awake, oriented to person, oriented to place , oriented to time, CN II-XII grossly intact Psychiatric exam: PRESENT: normal mood Results Laboratory Results: 10/20/16 07:39 10/23/16 06:20 10/23/16 06:20 Sodium 139.3 Potassium 3.5 L Chloride 95 L Carbon Dioxide 32 H Anion Gap 12 BUN 10 Creatinine 1.02 Est GFR ( Amer) > 60 Est GFR (Non-Af Amer) > 60 Glucose 71 L Calcium 9.4 Phosphorus 4.9 H Impressions: KUB X-Ray 09/23/16 17:12 IMPRESSION: Tube placement as described. Facial Bones CT 09/27/16 00:00 IMPRESSION: NG tube is identified. No other significant findings. Abdomen/Pelvis CT 10/15/16 00:00 IMPRESSION: 1. Moderate small bowel obstruction pattern persists. Chronic severely dilated large bowel. No gross free air discerned. Lack of oral contrast decreases sensitivity-specificity of this exam. 2. Nonspecific moderate left hydronephrosis -hydroureter and mild right hydronephrosis - hydroureter. This appearance is new/ worsened compared with prior exams. Recommend dynamic contrast CT of the renal system. Chest CT 10/15/16 00:00 IMPRESSION: Small left lower lobar pneumonia/atelectasis, increased. Abnormal CT of the abdomen/pelvis reported separately. Chest X-Ray 10/15/16 08:16 IMPRESSION: Linear basilar atelectasis. Guidance Fluoroscopy 10/21/16 00:00 IMPRESSION: SUCCESSFUL PLACEMENT OF A 5 FR DUAL LUMEN 38 CM PICC IN THE LEFT BASILIC VEIN. Interventional Vascular Procedure 10/21/16 00:00 IMPRESSION: SUCCESSFUL PLACEMENT OF A 5 FR DUAL LUMEN 38 CM PICC IN THE LEFT BASILIC VEIN. PICC Line Insertion 10/21/16 00:00 IMPRESSION: SUCCESSFUL PLACEMENT OF A 5 FR DUAL LUMEN 38 CM PICC IN THE LEFT BASILIC VEIN. Assessment & Plan - Diagnosis (1) Fungemia Is this a current diagnosis for this admission?: Yes Plan: Culture growing non-albicans Jossie species. Patient is on micafungin. Microbiology lab was called to have the sample sent out for further speciation- awaiting results. Patient is no longer febrile. Patient restarted on TPN on 10/21/2016. (2) Small bowel obstruction Is this a current diagnosis for this admission?: Yes Plan: Likely related to his adenocarcinoma. Plan is for transfer to [facility] for surgical procedure on October 30. Procedure was postponed at this time as patient was found to have fungemia and is currently being treated. Patient is still n.p.o. with NG tube in place to low intermittent suction. PICC line is being replaced today at 10/21/2016 TPN is still being increased. [facility] was contacted on 10/23. The surgeon stated that they would contact us to see how that patient is doing and bring him in for surgery if appropriate. (3) Colon cancer Qualifiers: Is this a current diagnosis for this admission?: Yes Plan: Is being followed by oncology. Plan is for transferred to [facility] for further evaluation and treatment on October 30. (4) Leukocytosis Qualifiers: Leukocytosis type: unspecified Qualified Code(s): D72.829 - Elevated white blood cell count, unspecified Is this a current diagnosis for this admission?: Yes Plan: Leukocytosis has improved since patient has been on micafungin for his fungemia. Patient otherwise has persistent leukocytosis which could be due to his underlying malignancy and/or reactive to his anemia. (5) Malnutrition of moderate degree Is this a current diagnosis for this admission?: Yes Plan: Patient was placed on a TPN medication after developing fungemia. Picc was placed on 10/22/2016 and patient was restarted on TPN. Malnutrition due to colon cancer complicated by small bowel obstruction resulting in inability to eat (6) Hypomagnesemia Is this a current diagnosis for this admission?: Yes Plan: Resolved. Patient receiving replacement in TPN. (7) Thrombocytosis Is this a current diagnosis for this admission?: Yes Plan: Patient continues to have persistent thrombocytosis which could be due to his underlying malignancy and/or infection. He is on low molecular weight heparin. (8) Anemia of chronic disease Is this a current diagnosis for this admission?: Yes Plan: This is multifactorial is most likely related to his colon cancer. Patient has received iron infusion during this admission. Patient hemoglobin has been stable at 8.6. (9) Gram-positive bacteremia Is this a current diagnosis for this admission?: Yes Plan: He completed treated with 7 days of vancomycin. Repeat blood cultures were negative. Multiple cardiac echo transthoracic did not show any vegetations. (10) Hyperphosphatemia Is this a current diagnosis for this admission?: Yes Plan: Improved with changes in the TPN however still elevated. Will continue to monitor. (11) DVT prophylaxis Is this a current diagnosis for this admission?: Yes Plan: Continue subcutaneous heparin. - Time Time Spent with patient: Less than 15 minutes Anticipated discharge: [facility] - Patient to be transferred to [facility] on 10/30 for surgery.
[2016-10-24] MEDS: HYDROMORPHONE HCL INJ/PF 2 MG/ML AMPULE IV PRN ×6 (00:18→20:01)
[2016-10-24] MEDS: DIPHENHYDRAMINE HCL 50 MG/ML VIAL IV PRN ×3 (00:19→18:37)
[2016-10-24] MEDS: HEPARIN SOD (PORCINE) 5,000 UNIT/ML 1 ML SYRINGE SUBCUT SCH ×3 (05:56→22:49)
[2016-10-24] MEDS: AMINO ACIDS 5%/D25W 1,000 ML IV PRN ×2 (06:38→23:07)
--- NOTE | 2016-10-24 08:46 | PDOC PROGRESS REPORT ---
Subjective Progress Note for:: 10/24/16 Subjective:: No acute events overnight, will not see patient over the weekend Physical Exam Vital Signs: Temp Pulse Resp BP Pulse Ox 97.6 F 72 19 137/74 H 100 10/23/16 20:09 10/23/16 20:09 10/23/16 20:09 10/23/16 20:09 10/23/16 20:09 Intake & Output 10/23/16 10/24/16 10/25/16 06:59 06:59 06:59 Intake Total 1350 770 Output Total 2610 1150 Balance -1260 -380 Weight 55.2 kg General appearance: PRESENT: no acute distress, well-developed, well-nourished Head exam: PRESENT: atraumatic, normocephalic Eye exam: PRESENT: conjunctiva pink, EOMI, PERRLA. ABSENT: scleral icterus Ear exam: PRESENT: normal external ear exam Mouth exam: PRESENT: moist, tongue midline Neck exam: ABSENT: carotid bruit, JVD, lymphadenopathy, thyromegaly Respiratory exam: PRESENT: clear to auscultation luisa. ABSENT: rales, rhonchi, wheezes Cardiovascular exam: PRESENT: RRR. ABSENT: diastolic murmur, rubs, systolic murmur Pulses: PRESENT: normal dorsalis pedis pul Vascular exam: PRESENT: normal capillary refill GI/Abdominal exam: PRESENT: normal bowel sounds, soft. ABSENT: distended, guarding, mass, organolmegaly, rebound, tenderness Rectal exam: PRESENT: deferred Extremities exam: PRESENT: full ROM. ABSENT: calf tenderness, clubbing, pedal edema Neurological exam: PRESENT: alert, awake, oriented to person, oriented to place , oriented to time, oriented to situation, CN II-XII grossly intact. ABSENT: motor sensory deficit Psychiatric exam: PRESENT: appropriate affect, normal mood. ABSENT: homicidal ideation, suicidal ideation Skin exam: PRESENT: dry, intact, warm. ABSENT: cyanosis, rash Results Laboratory Results: 10/20/16 07:39 10/23/16 06:20 Impressions: KUB X-Ray 09/23/16 17:12 IMPRESSION: Tube placement as described. Facial Bones CT 09/27/16 00:00 IMPRESSION: NG tube is identified. No other significant findings. Abdomen/Pelvis CT 10/15/16 00:00 IMPRESSION: 1. Moderate small bowel obstruction pattern persists. Chronic severely dilated large bowel. No gross free air discerned. Lack of oral contrast decreases sensitivity-specificity of this exam. 2. Nonspecific moderate left hydronephrosis -hydroureter and mild right hydronephrosis - hydroureter. This appearance is new/ worsened compared with prior exams. Recommend dynamic contrast CT of the renal system. Chest CT 10/15/16 00:00 IMPRESSION: Small left lower lobar pneumonia/atelectasis, increased. Abnormal CT of the abdomen/pelvis reported separately. Chest X-Ray 10/15/16 08:16 IMPRESSION: Linear basilar atelectasis. Guidance Fluoroscopy 10/21/16 00:00 IMPRESSION: SUCCESSFUL PLACEMENT OF A 5 FR DUAL LUMEN 38 CM PICC IN THE LEFT BASILIC VEIN. Interventional Vascular Procedure 10/21/16 00:00 IMPRESSION: SUCCESSFUL PLACEMENT OF A 5 FR DUAL LUMEN 38 CM PICC IN THE LEFT BASILIC VEIN. PICC Line Insertion 10/21/16 00:00 IMPRESSION: SUCCESSFUL PLACEMENT OF A 5 FR DUAL LUMEN 38 CM PICC IN THE LEFT BASILIC VEIN. Assessment & Plan - Diagnosis (1) Small bowel obstruction Is this a current diagnosis for this admission?: Yes Plan: Surgery planned next week [facility], probable transfer next week prior to that. (2) Colon cancer metastasized to liver Is this a current diagnosis for this admission?: Yes Plan: Surgery as above, further chemotherapy then if patient recovers well from that (3) Fungemia Is this a current diagnosis for this admission?: Yes Plan: Continue with micafungin this will continue indefinitely until surgery - Time Time Spent with patient: 25-34 minutes Critical Time spent with patient: 25-34 minutes
[2016-10-24] MEDS: NORMAL SALINE 10 ML SDV (SCHEDULED) IV SCH ×2 (10:43→22:40)
[2016-10-24] MEDS: NORMAL SALINE 10 ML SDV (AFTER EACH USE) IV PRN (10:43)
[2016-10-24] MEDS: MICAFUNGIN SODIUM 100 MG in NORMAL SALINE 100 ML IV SCH (15:33)
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
[2016-10-25] MEDS: DIPHENHYDRAMINE HCL 50 MG/ML VIAL IV PRN ×4 (00:08→19:55)
[2016-10-25] MEDS: HYDROMORPHONE HCL INJ/PF 2 MG/ML AMPULE IV PRN ×7 (00:08→23:53)
[2016-10-25] MEDS: HEPARIN SOD (PORCINE) 5,000 UNIT/ML 1 ML SYRINGE SUBCUT SCH ×3 (06:17→22:57)
[2016-10-25] MEDS: NORMAL SALINE 10 ML SDV (SCHEDULED) IV SCH ×2 (11:02→22:57)
[2016-10-25 12:39] LABS: ABSOLUTE BASOPHILS # (AUTO) 0.2 10^3/uL (0.0-0.2); ABSOLUTE EOSINOPHILS # (AUTO) 0.2 10^3/uL (0.0-0.6); ABSOLUTE LYMPHOCYTES (AUTO) 1.4 10^3/uL (0.5-4.7); ABSOLUTE NEUT (AUTO) 16.5 10^3/uL (1.7-8.2); BASOPHILS % (AUTO) 0.8 % (0-2); EOSINOPHILS % (AUTO) 0.9 % (0-6); HEMATOCRIT 29.6 % (37.9-51.0); HEMOGLOBIN 9.5 g/dL (13.5-17.0); HGB HCT DIFFERENCE -1.1; LYMPHOCYTES % (AUTO) 7.2 % (13-45); MEAN CORPUSCULAR HEMOGLOBIN 24.3 pg (27.0-33.4); MEAN CORPUSCULAR VOLUME 76 fl (80-97); MONOCYTES % (AUTO) 5.4 % (3-13); RED BLOOD COUNT 3.91 10^6/uL (4.35-5.55); SEGMENTED NEUTROPHILS % (AUTO) 85.7 % (42-78); WHITE BLOOD COUNT 19.3 10^3/uL (4.0-10.5)
[2016-10-25 12:57] LABS: ANION GAP 14 (5-19); BLOOD UREA NITROGEN 18 mg/dL (7-20); CALCIUM 9.8 mg/dL (8.4-10.2); CARBON DIOXIDE 31 mmol/L (22-30); CHLORIDE 93 mmol/L (98-107); CREATININE RESULT 0.87 mg/dL (0.52-1.25); GLUCOSE 84 mg/dL (75-110); MAGNESIUM 2.1 mg/dL (1.6-2.3); SODIUM 138.4 mmol/L (137-145)
[2016-10-25] MEDS: MICAFUNGIN SODIUM 100 MG in NORMAL SALINE 100 ML IV SCH (14:06)
[2016-10-25] MEDS: AMINO ACIDS 5%/D25W 1,000 ML IV PRN (15:39)
[2016-10-25] MEDS: NORMAL SALINE 10 ML SDV (AFTER EACH USE) IV PRN (15:41)
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
[2016-10-26] MEDS: DIPHENHYDRAMINE HCL 50 MG/ML VIAL IV PRN ×2 (02:20→19:56)
[2016-10-26] MEDS: PROMETHAZINE HCL INJ 25 MG/1 ML VIAL IV PRN (03:04)
[2016-10-26] MEDS: HYDROMORPHONE HCL INJ/PF 2 MG/ML AMPULE IV PRN ×6 (04:00→23:53)
[2016-10-26] MEDS: HEPARIN SOD (PORCINE) 5,000 UNIT/ML 1 ML SYRINGE SUBCUT SCH ×3 (06:45→22:20)
[2016-10-26] MEDS: AMINO ACIDS 5%/D25W 1,000 ML IV PRN ×2 (08:24→22:21)
[2016-10-26] MEDS ORDERED: DEXTROSE 50%-WATER SYRINGE 12.5 GM/25 ML DOSE IV PRN (10:31)
[2016-10-26] MEDS ORDERED: DEXTROSE 50%-WATER SYRINGE 25 GM/50 ML DOSE IV PRN (10:31)
[2016-10-26] MEDS ORDERED: DEXTROSE 40% GEL 15 GM TUBE PO PRN (10:31)
[2016-10-26] MEDS ORDERED: DEXTROSE 10%-WATER 1,000 ML IV PRN (10:31)
[2016-10-26] MEDS ORDERED: GLUCAGON,HUMAN RECOMB 1 MG INJ IM PRN (10:31)
[2016-10-26] MEDS ORDERED: INSULIN REG, HUMAN 100 UNIT/ML 3 ML VIAL (PYX) SUBCUT PRN (10:31)
[2016-10-26] MEDS ORDERED: DEXTROSE 40% GEL 15 GM TUBE X 2 PO PRN (10:31)
[2016-10-26] MEDS: NORMAL SALINE 10 ML SDV (SCHEDULED) IV SCH ×2 (12:04→22:20)
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
[2016-10-26] MEDS: MICAFUNGIN SODIUM 100 MG in NORMAL SALINE 100 ML IV SCH (14:54)
[2016-10-27] MEDS: DIPHENHYDRAMINE HCL 50 MG/ML VIAL IV PRN ×3 (02:26→20:07)
[2016-10-27] MEDS: HYDROMORPHONE HCL INJ/PF 2 MG/ML AMPULE IV PRN ×5 (03:47→22:46)
[2016-10-27] MEDS: HEPARIN SOD (PORCINE) 5,000 UNIT/ML 1 ML SYRINGE SUBCUT SCH ×3 (06:21→22:02)
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
[2016-10-27] MEDS ORDERED: FAT EMULSIONS 250 ML IV SCH (10:00)
[2016-10-27] MEDS: NORMAL SALINE 10 ML SDV (SCHEDULED) IV SCH ×2 (10:46→22:02)
[2016-10-27] MEDS: AMINO ACIDS 5%/D25W 1,000 ML IV PRN (10:53)
[2016-10-27] MEDS: MICAFUNGIN SODIUM 100 MG in NORMAL SALINE 100 ML IV SCH (16:30)
--- NOTE | 2016-10-27 16:52 | PDOC PROGRESS REPORT ---
Subjective Progress Note for:: 10/27/16 Subjective:: This is a follow-up visit for fungemia. At the bedside the patient is having more abdominal pain than usual. I spoke with Dr. Rothman about this patient this morning and he tells me that he feels that the patient is ready for discharge. He has contacted the accepting surgeon Dr. Lachelle Villa, who has agreed to take the patient. Unfortunately, we contacted [facility] no beds are available still for this patient. His surgery is currently scheduled for October 30. Physical Exam Vital Signs: Temp Pulse Resp BP Pulse Ox 98.4 F 90 17 112/81 97 10/27/16 12:12 10/27/16 12:12 10/27/16 12:12 10/27/16 12:12 10/27/16 12:12 Intake & Output 10/26/16 10/27/16 10/28/16 06:59 06:59 06:59 Intake Total 1920 2312 Output Total 1960 3320 Balance -40 -1008 Weight 53 kg 53.2 kg GENERAL: Well-developed undernourished appearing -Swazi male resting in bed currently in pain. HEART: Regular rate and rhythm. No murmurs, rubs or gallops. LUNGS: Clear to auscultation bilaterally with equal rise and fall of the chest. ABDOMEN: Soft, nontender, nondistended with normoactive bowel sounds. Ostomy bag is in place with brown/black liquid stool. EXTREMETIES: No clubbing, cyanosis or edema. 2+ peripheral pulses bilaterally. NEURO: Awake, alert and oriented 3. Cranial nerves II through XII are grossly intact. Results Impressions: KUB X-Ray 09/23/16 17:12 IMPRESSION: Tube placement as described. Facial Bones CT 09/27/16 00:00 IMPRESSION: NG tube is identified. No other significant findings. Abdomen/Pelvis CT 10/15/16 00:00 IMPRESSION: 1. Moderate small bowel obstruction pattern persists. Chronic severely dilated large bowel. No gross free air discerned. Lack of oral contrast decreases sensitivity-specificity of this exam. 2. Nonspecific moderate left hydronephrosis -hydroureter and mild right hydronephrosis - hydroureter. This appearance is new/ worsened compared with prior exams. Recommend dynamic contrast CT of the renal system. Chest CT 10/15/16 00:00 IMPRESSION: Small left lower lobar pneumonia/atelectasis, increased. Abnormal CT of the abdomen/pelvis reported separately. Chest X-Ray 10/15/16 08:16 IMPRESSION: Linear basilar atelectasis. Guidance Fluoroscopy 10/21/16 00:00 IMPRESSION: SUCCESSFUL PLACEMENT OF A 5 FR DUAL LUMEN 38 CM PICC IN THE LEFT BASILIC VEIN. Interventional Vascular Procedure 10/21/16 00:00 IMPRESSION: SUCCESSFUL PLACEMENT OF A 5 FR DUAL LUMEN 38 CM PICC IN THE LEFT BASILIC VEIN. PICC Line Insertion 10/21/16 00:00 IMPRESSION: SUCCESSFUL PLACEMENT OF A 5 FR DUAL LUMEN 38 CM PICC IN THE LEFT BASILIC VEIN. Assessment & Plan - Diagnosis (1) Fungemia Is this a current diagnosis for this admission?: Yes Plan: Culture growing non-albicans Jossie species. Patient is on micafungin. Microbiology lab was called to have the sample sent out for further speciation- awaiting results. Patient is no longer febrile. Patient restarted on TPN on 10/21/2016. Continue antifungals for total 14 days. Repeat blood cultures still remain negative. (2) Small bowel obstruction Is this a current diagnosis for this admission?: Yes Plan: Diverting ileostomy is in place. He is to be transferred to [facility] sometime next week. Patient remains n.p.o. but is not abiding by this and sometimes consumes water or Sunkist orange soda. TPN is being given continuously with a goal rate of 75 cc/h. He is currently at 75cc/h. hopefully the patient will be able to be transferred next week. (3) Acute renal failure Qualifiers: Acute renal failure type: unspecified Qualified Code(s): N17.9 - Acute kidney failure, unspecified Plan: resolved (4) Colon cancer Qualifiers: Is this a current diagnosis for this admission?: Yes Plan: The patient was going to undergo procedure at [facility] on 10/16/2016. However, this is been deferred due to fungemia. He is now ready for transferral. In the next day or 2. Dr. Sanders has recommended that the patient stay on his antifungal until transferral. (5) Generalized abdominal pain Is this a current diagnosis for this admission?: Yes Plan: His pain is a little worse today. I have agreed to let him have his 1145 dose now at 1115. (6) High output ileostomy Plan: Concern for small bowel obstruction. Patient is currently draining liquid brown stool to her diverting colostomy. He is due to follow-up at [facility] for surgery next week (7) Sepsis Qualifiers: Sepsis type: methicillin susceptible Staphylococcus aureus Qualified Code(s ): A41.01 - Sepsis due to Methicillin susceptible Staphylococcus aureus Is this a current diagnosis for this admission?: Yes Plan: Resolved (8) DVT prophylaxis Is this a current diagnosis for this admission?: Yes Plan: Heparin 3 times daily. SCDs are currently off. - Time Time Spent with patient: 15-24 minutes - Inpatient Certification Medical Necessity: Need Close Monitoring Due to Risk of Patient Decompensation
[2016-10-27 20:54] LABS: HEMATOCRIT 30.7 % (37.9-51.0); HEMOGLOBIN 9.3 g/dL (13.5-17.0); HGB HCT DIFFERENCE -2.8; MEAN CORPUSCULAR HEMOGLOBIN 23.1 pg (27.0-33.4); MEAN CORPUSCULAR HGB CONC 30.1 g/dL (32.0-36.0); MEAN CORPUSCULAR VOLUME 77 fl (80-97); WHITE BLOOD COUNT 21.4 10^3/uL (4.0-10.5)
[2016-10-27 21:08] LABS: ANION GAP 11 (5-19); BLOOD UREA NITROGEN 26 mg/dL (7-20); CALCIUM 9.9 mg/dL (8.4-10.2); CARBON DIOXIDE 31 mmol/L (22-30); CHLORIDE 94 mmol/L (98-107); CREATININE RESULT 0.76 mg/dL (0.52-1.25); GLUCOSE 63 mg/dL (75-110); POTASSIUM 4.2 mmol/L (3.6-5.0); SODIUM 136.3 mmol/L (137-145)
[2016-10-27 21:21] LABS: BASOPHILS % (MANUAL) 1 % (0-2); EOSINOPHILS % (MANUAL) 3 % (0-6); LYMPHOCYTES % (MANUAL) 11 % (13-45); NUCLEATED RED BLOOD CELLS 1 /100 WBC (0); TOTAL CELLS COUNTED 100
[2016-10-27 21:24] LABS: ANISOCYTOSIS 2+; HOWELL-JOLLY BODIES PRESENT; HYPOCHROMASIA 2+; MICROCYTOSIS SLIGHT; POLYCHROMASIA SLIGHT; TARGET CELLS 2+
[2016-10-27 21:26] LABS: TOXIC GRANULATION SLIGHT
[2016-10-28] MEDS: AMINO ACIDS 5%/D25W 1,000 ML IV PRN (02:59)
[2016-10-28] MEDS: HYDROMORPHONE HCL INJ/PF 2 MG/ML AMPULE IV PRN ×5 (02:59→16:44)
[2016-10-28] MEDS: DIPHENHYDRAMINE HCL 50 MG/ML VIAL IV PRN ×2 (02:59→09:35)
[2016-10-28] MEDS: HEPARIN SOD (PORCINE) 5,000 UNIT/ML 1 ML SYRINGE SUBCUT SCH ×2 (06:49→14:31)
--- NOTE | 2016-10-28 09:22 | PDOC PROGRESS REPORT ---
Subjective Progress Note for:: 10/28/16 Subjective:: No acute events overnight, patient awaiting transfer Physical Exam Vital Signs: Temp Pulse Resp BP Pulse Ox 98.2 F 86 18 122/85 100 10/27/16 20:03 10/27/16 20:03 10/27/16 20:03 10/27/16 20:03 10/27/16 20:03 Intake & Output 10/27/16 10/28/16 10/29/16 06:59 06:59 06:59 Intake Total 2312 1310 Output Total 3320 1900 1000 Balance -1008 -590 -1000 Weight 53.2 kg 53.2 kg General appearance: PRESENT: no acute distress, well-developed, well-nourished Head exam: PRESENT: atraumatic, normocephalic Eye exam: PRESENT: conjunctiva pink, EOMI, PERRLA. ABSENT: scleral icterus Ear exam: PRESENT: normal external ear exam Mouth exam: PRESENT: moist, tongue midline Neck exam: ABSENT: carotid bruit, JVD, lymphadenopathy, thyromegaly Respiratory exam: PRESENT: clear to auscultation luisa. ABSENT: rales, rhonchi, wheezes Cardiovascular exam: PRESENT: RRR. ABSENT: diastolic murmur, rubs, systolic murmur Pulses: PRESENT: normal dorsalis pedis pul Vascular exam: PRESENT: normal capillary refill GI/Abdominal exam: PRESENT: normal bowel sounds, soft. ABSENT: distended, guarding, mass, organolmegaly, rebound, tenderness Rectal exam: PRESENT: deferred Extremities exam: PRESENT: full ROM. ABSENT: calf tenderness, clubbing, pedal edema Neurological exam: PRESENT: alert, awake, oriented to person, oriented to place , oriented to time, oriented to situation, CN II-XII grossly intact. ABSENT: motor sensory deficit Psychiatric exam: PRESENT: appropriate affect, normal mood. ABSENT: homicidal ideation, suicidal ideation Skin exam: PRESENT: dry, intact, warm. ABSENT: cyanosis, rash Results Laboratory Results: 10/27/16 20:40 10/27/16 20:40 10/27/16 10/27/16 10/27/16 14:12 14:12 20:40 WBC Cancelled 21.4 H RBC Cancelled 4.00 L Hgb Cancelled 9.3 L Hct Cancelled 30.7 L MCV Cancelled 77 L MCH Cancelled 23.1 L MCHC Cancelled 30.1 L RDW Cancelled 20.0 H Plt Count Cancelled 643 H Seg Neutrophils % Cancelled Not Reportable Lymphocytes % Cancelled Not Reportable Monocytes % Cancelled Not Reportable Eosinophils % Cancelled Not Reportable Basophils % Cancelled Not Reportable Absolute Neutrophils Cancelled Not Reportable Absolute Lymphocytes Cancelled Not Reportable Absolute Monocytes Cancelled Not Reportable Absolute Eosinophils Cancelled Not Reportable Absolute Basophils Cancelled Not Reportable Sodium Cancelled Potassium Cancelled Chloride Cancelled Carbon Dioxide Cancelled Anion Gap Cancelled BUN Cancelled Creatinine Cancelled Est GFR ( Amer) Cancelled Est GFR (Non-Af Amer) Cancelled Glucose Cancelled Calcium Cancelled Magnesium Cancelled 10/27/16 20:40 WBC RBC Hgb Hct MCV MCH MCHC RDW Plt Count Seg Neutrophils % Lymphocytes % Monocytes % Eosinophils % Basophils % Absolute Neutrophils Absolute Lymphocytes Absolute Monocytes Absolute Eosinophils Absolute Basophils Sodium 136.3 L Potassium 4.2 Chloride 94 L Carbon Dioxide 31 H Anion Gap 11 BUN 26 H Creatinine 0.76 Est GFR ( Amer) > 60 Est GFR (Non-Af Amer) > 60 Glucose 63 L Calcium 9.9 Magnesium 2.0 Impressions: KUB X-Ray 09/23/16 17:12 IMPRESSION: Tube placement as described. Facial Bones CT 09/27/16 00:00 IMPRESSION: NG tube is identified. No other significant findings. Abdomen/Pelvis CT 10/15/16 00:00 IMPRESSION: 1. Moderate small bowel obstruction pattern persists. Chronic severely dilated large bowel. No gross free air discerned. Lack of oral contrast decreases sensitivity-specificity of this exam. 2. Nonspecific moderate left hydronephrosis -hydroureter and mild right hydronephrosis - hydroureter. This appearance is new/ worsened compared with prior exams. Recommend dynamic contrast CT of the renal system. Chest CT 10/15/16 00:00 IMPRESSION: Small left lower lobar pneumonia/atelectasis, increased. Abnormal CT of the abdomen/pelvis reported separately. Chest X-Ray 10/15/16 08:16 IMPRESSION: Linear basilar atelectasis. Guidance Fluoroscopy 10/21/16 00:00 IMPRESSION: SUCCESSFUL PLACEMENT OF A 5 FR DUAL LUMEN 38 CM PICC IN THE LEFT BASILIC VEIN. Interventional Vascular Procedure 10/21/16 00:00 IMPRESSION: SUCCESSFUL PLACEMENT OF A 5 FR DUAL LUMEN 38 CM PICC IN THE LEFT BASILIC VEIN. PICC Line Insertion 10/21/16 00:00 IMPRESSION: SUCCESSFUL PLACEMENT OF A 5 FR DUAL LUMEN 38 CM PICC IN THE LEFT BASILIC VEIN. Assessment & Plan - Diagnosis (1) Small bowel obstruction Is this a current diagnosis for this admission?: Yes Plan: Transfer to [facility] for surgery (2) Colon cancer metastasized to liver Is this a current diagnosis for this admission?: Yes Plan: After surgery, patient may be a candidate for further chemotherapy (3) Fungemia Is this a current diagnosis for this admission?: Yes Plan: Continue antifungal until patient gets to [facility], decision to continue will need to be made by infectious disease - Time Time Spent with patient: 35 or more minutes Critical Time spent with patient: 35 or more minutes Disposition: Patient will have transfer when bed availability is there, I have discussed with nursing to make sure all of the discs, micro-biology results and radiology results will need to be sent with patient. Today spent greater than 45 minutes in coordination of care
[2016-10-28] MEDS: NORMAL SALINE 10 ML SDV (SCHEDULED) IV SCH (09:36)
[2016-10-28] MEDS: PROMETHAZINE HCL INJ 25 MG/1 ML VIAL IV PRN (09:39)
[2016-10-28] MEDS ORDERED: HYDROMORPHONE HCL INJ/PF 2 MG/ML AMPULE IV PRN (12:07)
[2016-10-28] MEDS ORDERED: HYDROMORPHONE HCL INJ/PF 2 MG/ML AMPULE ONE (12:21)
[2016-10-28 12:35] VITALS: BP 113/85
[2016-10-28] MEDS ORDERED: AMINO ACIDS 5%/D25W 1,000 ML IV PRN (13:37)
[2016-10-28] MEDS: MICAFUNGIN SODIUM 100 MG in NORMAL SALINE 100 ML IV SCH (14:30)
--- NOTE | 2016-10-28 16:24 | PDOC DISCHARGE SUMMARY ---
General - Admit/Disc Date/PCP Admission Date/Primary Care Provider: 09/23/16 16:29 Discharge Date: 10/28/16 - Discharge Diagnosis (1) Fungemia Is this a current diagnosis for this admission?: Yes Summary: He will continue micafungin. This is day #12 of treatment. Repeat blood cultures have been negative. This was likely due to receiving TPN via his PICC line. His PICC line was removed. He went on a TPN holiday. He has since had his PICC line replaced and has been restarted on TPN. (2) Fever Is this a current diagnosis for this admission?: Yes Summary: Most recently related to fungemia. Currently on micafungin. This is day #12 of treatment. Repeat blood cultures have been negative. His fever has resolved (3) Small bowel obstruction Is this a current diagnosis for this admission?: Yes Summary: Currently with NG tube in place. Continue TPN for now. He is being transferred for consideration for HIPEC procedure to be performed by Dr. Villa (4) Colon cancer Is this a current diagnosis for this admission?: Yes Summary: He has stage IV colon cancer. His primary oncologist is Dr. Veronica Lewis. Her cell phone number is [phone]. His oncologist at this facility is Dr. Sanders and his number is [phone]. (5) MRSA bacteremia Is this a current diagnosis for this admission?: Yes Summary: He completed a course of antibiotic therapy for this.This was much earlier in his hospitalization. Most recent blood cultures are negative. (6) Leukocytosis Is this a current diagnosis for this admission?: Yes Summary: 2 weeks ago he had worsening leukocytosis and was found to have fungemia. He continues to have persistent leukocytosis which may just be reactive to his small bowel obstruction and underlying malignancy. He has been afebrile for over a week now.. (7) Malnutrition of moderate degree Is this a current diagnosis for this admission?: Yes Summary: Continue TPN for now. (8) Anemia Summary: Related to his underlying malignancy. (9) Thrombocytosis Is this a current diagnosis for this admission?: Yes Summary: Likely reactive (10) Hypomagnesemia Is this a current diagnosis for this admission?: Yes Summary: Continue to replete as needed (11) Hyperphosphatemia Is this a current diagnosis for this admission?: Yes Summary: Continue to replete as needed. (12) Elevated liver function tests Summary: Related to his underlying malignancy. - Additional Information Resuscitation Status: Full Code Discharge Diet: Other (Comments) - tpn Home Medications: Alprazolam [Xanax 0.5 mg Tablet] 0.5 mg PO BIDP PRN 09/23/16 Hydromorphone HCl [Dilaudid] 8 mg PO Q4HP PRN 09/23/16 Ondansetron HCl [Zofran 8 mg Tablet] 8 mg PO Q8HP PRN 09/23/16 Zolpidem Tartrate [Ambien 5 mg Tablet] 5 mg PO HSP PRN 09/23/16 History of Present Illness History of Present Illness: JERE CRUZ is a 41 year old male with stage IV colon cancer who presented with a small bowel obstruction. 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 He has had issues with recurrent small bowel obstruction and really has no further traditional chemotherapy options left. He follows with Dr. Veronica Lewis in [place] he was managed his cancer care to this point. He was initially admitted to this facility and transferred to [facility] for consideration of a possible HIPEC procedure. He was transferred back here for continued NG tube decompression and TPN to maximize his nutritional status. He was going to go back to [place] for his procedure initially on October 17, 2015. During this time. He remained time he remained on TPN and did fairly well until the morning he was supposed to be transferred and he developed a high fever. Ultimately he was found to have fungemia and has been placed on micafungin. He began to improve. His PICC line was removed and he was given a TPN holiday. Over the past 2 weeks the patient's PICC line was eventually replaced and he was started back on TPN. Repeat blood cultures have remained negative. Now his procedure is scheduled for October 30, 2016 to be performed by Dr. Villa. I was notified by the nursing staff that the patient now has a bed available and is ready for transfer. Today when I saw the patient he was having some increased abdominal pain. Otherwise he looked quite stable. He does have persistent leukocytosis but has remained afebrile. At this point it is felt that he can safely be transferred to [place] and he will go there this evening in stable condition. Physical Exam Vital Signs: Temp Pulse Resp BP Pulse Ox 98.0 F 91 14 113/85 97 10/28/16 11:54 10/28/16 11:54 10/28/16 11:54 10/28/16 11:54 10/28/16 07:58 Intake & Output 10/27/16 10/28/16 10/29/16 06:59 06:59 06:59 Intake Total 2312 1310 Output Total 3320 1900 1900 Balance -1008 -590 -1900 Weight 53.2 kg 53.2 kg General appearance: PRESENT: no acute distress, thin, other - Somewhat cachectic. He looks as if he does not feel well but is in no acute distress Head exam: PRESENT: atraumatic, normocephalic Mouth exam: PRESENT: moist, tongue midline Respiratory exam: PRESENT: clear to auscultation luisa. ABSENT: rales, rhonchi, wheezes Cardiovascular exam: PRESENT: RRR. ABSENT: diastolic murmur, rubs, systolic murmur GI/Abdominal exam: PRESENT: distended, firm, hypoactive bowel sounds, tenderness , other - He has an ostomy in the right lower quadrant with liquid light brown stool in the bag.. ABSENT: rebound Rectal exam: PRESENT: deferred Extremities exam: PRESENT: full ROM. ABSENT: calf tenderness, clubbing, pedal edema Musculoskeletal exam: PRESENT: ambulatory Neurological exam: PRESENT: alert, awake, oriented to person, oriented to place , oriented to time, oriented to situation, CN II-XII grossly intact. ABSENT: motor sensory deficit Psychiatric exam: PRESENT: appropriate affect, normal mood. ABSENT: homicidal ideation, suicidal ideation Skin exam: PRESENT: dry, intact, warm. ABSENT: cyanosis, rash Results Laboratory Results: 10/27/16 20:40 10/27/16 20:40 10/27/16 10/27/16 10/27/16 14:12 14:12 20:40 WBC Cancelled 21.4 H RBC Cancelled 4.00 L Hgb Cancelled 9.3 L Hct Cancelled 30.7 L MCV Cancelled 77 L MCH Cancelled 23.1 L MCHC Cancelled 30.1 L RDW Cancelled 20.0 H Plt Count Cancelled 643 H Seg Neutrophils % Cancelled Not Reportable Lymphocytes % Cancelled Not Reportable Monocytes % Cancelled Not Reportable Eosinophils % Cancelled Not Reportable Basophils % Cancelled Not Reportable Absolute Neutrophils Cancelled Not Reportable Absolute Lymphocytes Cancelled Not Reportable Absolute Monocytes Cancelled Not Reportable Absolute Eosinophils Cancelled Not Reportable Absolute Basophils Cancelled Not Reportable Sodium Cancelled Potassium Cancelled Chloride Cancelled Carbon Dioxide Cancelled Anion Gap Cancelled BUN Cancelled Creatinine Cancelled Est GFR ( Amer) Cancelled Est GFR (Non-Af Amer) Cancelled Glucose Cancelled Calcium Cancelled Magnesium Cancelled 10/27/16 20:40 WBC RBC Hgb Hct MCV MCH MCHC RDW Plt Count Seg Neutrophils % Lymphocytes % Monocytes % Eosinophils % Basophils % Absolute Neutrophils Absolute Lymphocytes Absolute Monocytes Absolute Eosinophils Absolute Basophils Sodium 136.3 L Potassium 4.2 Chloride 94 L Carbon Dioxide 31 H Anion Gap 11 BUN 26 H Creatinine 0.76 Est GFR ( Amer) > 60 Est GFR (Non-Af Amer) > 60 Glucose 63 L Calcium 9.9 Magnesium 2.0 Impressions: KUB X-Ray 09/23/16 17:12 IMPRESSION: Tube placement as described. Facial Bones CT 09/27/16 00:00 IMPRESSION: NG tube is identified. No other significant findings. Abdomen/Pelvis CT 10/15/16 00:00 IMPRESSION: 1. Moderate small bowel obstruction pattern persists. Chronic severely dilated large bowel. No gross free air discerned. Lack of oral contrast decreases sensitivity-specificity of this exam. 2. Nonspecific moderate left hydronephrosis -hydroureter and mild right hydronephrosis - hydroureter. This appearance is new/ worsened compared with prior exams. Recommend dynamic contrast CT of the renal system. Chest CT 10/15/16 00:00 IMPRESSION: Small left lower lobar pneumonia/atelectasis, increased. Abnormal CT of the abdomen/pelvis reported separately. Chest X-Ray 10/15/16 08:16 IMPRESSION: Linear basilar atelectasis. Guidance Fluoroscopy 10/21/16 00:00 IMPRESSION: SUCCESSFUL PLACEMENT OF A 5 FR DUAL LUMEN 38 CM PICC IN THE LEFT BASILIC VEIN. Interventional Vascular Procedure 10/21/16 00:00 IMPRESSION: SUCCESSFUL PLACEMENT OF A 5 FR DUAL LUMEN 38 CM PICC IN THE LEFT BASILIC VEIN. PICC Line Insertion 09/05/17 00:00 IMPRESSION: SUCCESSFUL PLACEMENT OF A 5 FR DUAL LUMEN 38 CM PICC IN THE LEFT BASILIC VEIN. Qualifiers PATEINT BEING DISCHARGED WITH ANY OF THE FOLLOWING DIAGNOSIS?: No Plan Discharge Plan: Transfer to [facility] today in poor but stable condition. Time Spent: Greater than 30 Minutes
== END 2016-10-28 18:20 | disposition short-term general hospital (02) | DRG 388 ==
LOC: 4N 16:29
PROVIDERS: ADMIT Family Medicine; ATTEND Family Medicine
PROC: 02HV33Z Insertion of Infusion Device into Superior Vena Cava, Percutaneous Approach (ICD-10-PCS; principal; 2016-10-21)
PROC: B5181ZA Fluoroscopy of Superior Vena Cava using Low Osmolar Contrast, Guidance (ICD-10-PCS; 2016-10-21)
PROC: B548ZZA Ultrasonography of Superior Vena Cava, Guidance (ICD-10-PCS; 2016-10-21)
DX: K56.69 Other intestinal obstruction (principal); A41.01 Sepsis due to Methicillin susceptible Staphylococcus aureus; J18.1 Lobar pneumonia, unspecified organism; B49 Unspecified mycosis; N17.9 Acute kidney failure, unspecified; E87.1 Hypo-osmolality and hyponatremia; E44.0 Moderate protein-calorie malnutrition; Z68.1 Body mass index [BMI] 19.9 or less, adult; C18.9 Malignant neoplasm of colon, unspecified; C78.7 Secondary malignant neoplasm of liver and intrahepatic bile duct; E87.5 Hyperkalemia; D63.0 Anemia in neoplastic disease; E83.42 Hypomagnesemia; E83.39 Other disorders of phosphorus metabolism; Z79.899 Other long term (current) drug therapy; Z90.49 Acquired absence of other specified parts of digestive tract; Z93.2 Ileostomy status
CPT/HCPCS: 36415; 36430; 36569; 70486; 71010; 71260; 74000; 74177; 76937; 77001; 80048; 80053; 80076; 80202; 81001; 82565; 82607; 82728; 82746; 82962; 83540; 83550; 83605; 83735; 84100; 84134; 84466; 84478; 85025; 85027; 85045; 85610; 85652; 86140; 86850; 86900; 86901; 86920; 87040; 87070; 87077; 87086; 87186; 93321; J0743; J1170; J1200; J1450; J1642; J1644; J1756; J1956; J2248; J2405; J2543; J2550; J3370; J3475; J3480; J3490; J7050; J7060; P9016

== ENCOUNTER 2017-01-10 01:20 | Emergency (ER) | payer MEDICAID ==
[2017-01-10] MEDS ORDERED: HYDROMORPHONE HCL INJ/PF 2 MG/ML AMPULE IV ONE ×3 (01:42→06:05)
[2017-01-10] MEDS ORDERED: HYDROMORPHONE HCL INJ/PF 2 MG/ML AMPULE ONE (01:43)
[2017-01-10] MEDS ORDERED: NORMAL SALINE 1000 ML 1,000 ML IV ONE (01:46)
--- NOTE | 2017-01-10 01:46 | ER Document Report ---
ED General - General Chief Complaint: Nausea/Vomiting Stated Complaint: STOMACH PAIN Time Seen by Provider: 01/10/17 01:29 Notes: Patient is a 41-year-old male with a past medical history of metastatic stage IV colon cancer, has been off chemotherapy for 5 months, has a chronic bowel obstruction with TPN dependency and a gastrostomy tube for chronic decompression of the GI tract who presents with vomiting, generalized weakness, and increasing abdominal pain for the past 24 hours. He was apparently discharged from [facility] less than 48 hours ago with a plan to recuperate at home with TPN so that he can become strong enough to apparently have surgery to correct the chronic bowel obstruction. However family states that at home he became so weak he could not even walk down the stairs. He has been taking hydromorphone 2 mg IV every 2 hours as needed for pain and states that this is not controlling his abdominal pain. He has not discussed with hospice or palliative care. He has not had any fever. His vomiting has been bilious. Nothing improves or worsens his symptoms. TRAVEL OUTSIDE OF THE [place] IN LAST 30 DAYS: No - Related Data Allergies/Adverse Reactions: No Known Allergies Allergy (Verified 08/04/16 14:39) Past Medical History - General Information source: Patient - Social History Smoking Status: Never Smoker Frequency of alcohol use: None Drug Abuse: None Lives with: Family Family History: Reviewed & Not Pertinent Patient has suicidal ideation: No Patient has homicidal ideation: No - Past Medical History Cardiac Medical History: Denies: Hx Congestive Heart Failure, Hx DVT, Hx Hypercholesterolemia, Hx Hypertension, Hx Pulmonary Embolism Pulmonary Medical History: Denies: Hx Asthma, Hx COPD, Hx Sleep Apnea, Hx Tuberculosis Neurological Medical History: Denies: Hx Seizures Endocrine Medical History: Denies: Hx Diabetes Mellitus Type 1, Hx Diabetes Mellitus Type 2, Hx Hyperthyroidism, Hx Hypothyroidism Renal/ Medical History: Denies: Hx Peritoneal Dialysis Malignancy Medical History: Reports Hx Colorectal Cancer - Metastatic to liver, status post complete colectomy. Ileostomy. GI Medical History: Reports: Hx Colonoscopy. Denies: Hx Cirrhosis, Hx Gastroesophageal Reflux Disease, Hx Hepatitis Musculoskeltal Medical History: Denies Hx Arthritis Psychiatric Medical History: Denies: Hx Depression Infectious Medical History: Denies: Hx C-Diff, Hx Hepatitis, Hx MRSA Past Surgical History: Reports: Hx Abdominal Surgery - colon resection, Hx Appendectomy, Hx Bowel Surgery - Partial bowel resection, partial splenectomy, Hx Cholecystectomy, Hx Genitourinary Surgery - partial bladder removel per pt., Hx Ileostomy, Other - Total colectomy for colorectal cancer. - Immunizations Hx Diphtheria, Pertussis, Tetanus Vaccination: No Hx Pneumococcal Vaccination: 01/16/13 Review of Systems - Review of Systems Notes: Constitutional: Negative for fever. HENT: Negative for sore throat. Eyes: Negative for visual changes. Cardiovascular: Negative for chest pain. Respiratory: Negative for shortness of breath. Gastrointestinal: Positive for abdominal pain and vomiting. Genitourinary: Negative for dysuria. Musculoskeletal: Negative for back pain. Skin: Negative for rash. Neurological: Negative for headaches, weakness or numbness. 10 point ROS negative except as marked above and in HPI. Physical Exam - Vital signs Vitals: Temp Resp BP Pulse Ox 99.8 F 21 H 127/85 H 98 01/10/17 01:27 01/10/17 01:27 01/10/17 01:27 01/10/17 01:27 Notes: PHYSICAL EXAMINATION: GENERAL: Chronically ill in appearance, emaciated HEAD: Atraumatic, normocephalic. EYES: Pupils equal round and reactive to light, extraocular movements intact, sclera anicteric, conjunctiva are normal. ENT: nares patent, oropharynx clear without exudates. Dry mucous membranes. NECK: supple without lymphadenopathy LUNGS: Breath sounds clear to auscultation bilaterally and equal. No wheezes rales or rhonchi. HEART: Regular tachycardia without murmurs ABDOMEN: Distended abdomen, diffusely tender EXTREMITIES: no pitting or edema. No cyanosis. NEUROLOGICAL: No focal neurological deficits. Moves all extremities spontaneously and on command. PSYCH: Appears tired SKIN: Warm, Dry, normal turgor, no rashes or lesions noted. Course - Re-evaluation Re-evalutation: 01/10/17 01:45 Patient presents with uncontrolled pain, nausea, vomiting, symptoms consistent with an obstruction which he apparently chronically has and is on TPN as a result of this issue. Patient is also apparently become more generally weak over the last 24 hours and just got out of [facility] less than 48 hours ago. Patient appears very chronically ill, much worse than the last time that I seen him. Quite dehydrated. Will provide pain control, fluids, and basic laboratories 01/10/17 06:11 Laboratories do show a leukocytosis, chronic anemia, hypernatremia. Patient continues to have vomiting and tachycardia. I discussed with Dr. Banerjee at [facility] was accepted the patient for transfer. - Vital Signs Vital signs: Temp Pulse Resp BP Pulse Ox 99.8 F 19 109/72 95 01/10/17 01:27 01/10/17 03:01 01/10/17 05:00 01/10/17 05:01 - Laboratory Result Diagrams: 01/10/17 02:14 01/10/17 02:14 Laboratory results interpreted by me: 01/10/17 01/10/17 02:14 02:14 WBC 18.4 H RBC 4.00 L Hgb 8.7 L Hct 27.9 L MCV 70 L MCH 21.8 L MCHC 31.3 L RDW 16.5 H Plt Count 481 H Seg Neuts % (Manual) 95 H Lymphocytes % (Manual) 1 L Monocytes % (Manual) 1 L Abs Neuts (Manual) 18.0 H Abs Lymphs (Manual) 0.2 L Sodium 149.9 H BUN 31 H Direct Bilirubin 0.6 H Alkaline Phosphatase 346 H Albumin 2.9 L Discharge - Discharge Clinical Impression: Anemia of chronic disease, Opiate dependence, continuous Bowel obstruction Qualifiers: Intestinal obstruction type: unspecified Intestinal obstruction extent: complete Qualified Code(s): K56.601 - Complete intestinal obstruction, unspecified as to cause Condition: Serious Disposition: [facility]
[2017-01-10 02:24] LABS: HEMATOCRIT 27.9 % (37.9-51.0); HEMOGLOBIN 8.7 g/dL (13.5-17.0); HGB HCT DIFFERENCE -1.8; MEAN CORPUSCULAR HEMOGLOBIN 21.8 pg (27.0-33.4); MEAN CORPUSCULAR HGB CONC 31.3 g/dL (32.0-36.0); MEAN CORPUSCULAR VOLUME 70 fl (80-97); RED CELL DISTRIBUTION WIDTH 16.5 % (11.5-14.0); WHITE BLOOD COUNT 18.4 10^3/uL (4.0-10.5)
[2017-01-10 02:57] LABS: ALANINE AMINOTRANSFERASE 53 U/L (21-72); ALBUMIN 2.9 g/dL (3.5-5.0); ALKALINE PHOSPHATASE 346 U/L (38-126); ANION GAP 17 (5-19); ASPARTATE AMINO TRANSFERASE 58 U/L (17-59); BAND NEUTROPHILS % (MANUAL) 3 % (3-5); BASOPHILS % (MANUAL) 0 % (0-2); BILIRUBIN,DIRECT 0.6 mg/dL (0.0-0.4); BILIRUBIN,TOTAL 0.8 mg/dL (0.2-1.3); BLOOD UREA NITROGEN 31 mg/dL (7-20); CALCIUM 9.7 mg/dL (8.4-10.2); CARBON DIOXIDE 29 mmol/L (22-30); CHLORIDE 104 mmol/L (98-107); CREATININE RESULT 0.91 mg/dL (0.52-1.25); EOSINOPHILS % (MANUAL) 0 % (0-6); GLUCOSE 103 mg/dL (75-110); LYMPHOCYTES % (MANUAL) 1 % (13-45); POTASSIUM 4.3 mmol/L (3.6-5.0); SODIUM 149.9 mmol/L (137-145); TOTAL CELLS COUNTED 100; TOTAL PROTEIN 7.8 g/dL (6.3-8.2)
[2017-01-10 03:10] LABS: ACANTHOCYTES 1+; ANISOCYTOSIS 1+; BURR CELLS 1+; HYPOCHROMASIA 2+; MICROCYTOSIS 2+; POIKILOCYTOSIS 3+; SCHISTOCYTES 1+; STOMATOCYTES 1+; TOXIC VACUOLATION PRESENT
[2017-01-10 03:11] LABS: TARGET CELLS 2+
[2017-01-10] MEDS ORDERED: ONDANSETRON HCL INJ/PF 4 MG/2 ML SDV IV ONE (04:01)
[2017-01-10] MEDS ORDERED: HYDROMORPHONE HCL INJ/PF 2 MG/ML AMPULE IV PRN (06:11)
[2017-01-10] MEDS ORDERED: NORMAL SALINE 1000 ML 1,000 ML IV PRN (06:58)
[2017-01-10 07:58] VITALS: BP 101/62
== END 2017-01-10 07:56 | disposition short-term general hospital (02) ==
LOC: ER 01:20
DX: D63.0 Anemia in neoplastic disease (principal); K56.601 Complete intestinal obstruction, unspecified as to cause; F11.20 Opioid dependence, uncomplicated; D72.829 Elevated white blood cell count, unspecified; E87.0 Hyperosmolality and hypernatremia; R11.2 Nausea with vomiting, unspecified; R10.9 Unspecified abdominal pain; C18.9 Malignant neoplasm of colon, unspecified; C78.7 Secondary malignant neoplasm of liver and intrahepatic bile duct; Z90.49 Acquired absence of other specified parts of digestive tract
CPT/HCPCS: 96376; 99285; 96361; 96374; 96375; 36415; 87040; 83690; 85025; 87077; 80053; 87186; J1170; J2405; J7030

== ENCOUNTER 2017-02-25 01:45 | Inpatient (IN) | payer MEDICAID ==
[2017-02-25] MEDS ORDERED: HYDROMORPHONE HCL INJ/PF 2 MG/ML AMPULE IV ONE ×2 (02:07→03:09)
[2017-02-25] MEDS ORDERED: NORMAL SALINE 500 ML IV ONE (02:07)
--- NOTE | 2017-02-25 03:11 | ER Document Report ---
ED General - General Chief Complaint: Breathing Difficulty Stated Complaint: DIFFICULTY BREATHING Time Seen by Provider: 02/25/17 01:53 Notes: Patient is a 41-year-old male who has stage IV colon cancer. She has been on chemotherapy and radiation in the past but no longer is. He is on palliative care at home. He does have a Dilaudid pump in place. Family said ousmane's blood pressure was getting low and he appear to have some difficulty breathing and therefore they stopped his Dilaudid pump. He arrives saying that he has a lot of pain. When I talked to the patient patient says that he is not concerned with his blood pressure. He says is concerned with pain. He says he understands that taking away the pain can lead to abnormal vital signs but he just wants to be kept comfortable. He denies any recent fevers or infections. He does have a feeding tube. Family says that they actually have the patient drink the formula instead of put it down the feeding tube its patient prefers it this way. They have no other complaints at this time. TRAVEL OUTSIDE OF THE [place] IN LAST 30 DAYS: No - Related Data Allergies/Adverse Reactions: No Known Allergies Allergy (Verified 08/04/16 14:39) Past Medical History - Social History Smoking Status: Unknown if Ever Smoked Frequency of alcohol use: None Drug Abuse: None Family History: Reviewed & Not Pertinent - Past Medical History Cardiac Medical History: Denies: Hx Congestive Heart Failure, Hx DVT, Hx Hypercholesterolemia, Hx Hypertension, Hx Pulmonary Embolism Pulmonary Medical History: Denies: Hx Asthma, Hx COPD, Hx Sleep Apnea, Hx Tuberculosis Neurological Medical History: Denies: Hx Seizures Endocrine Medical History: Denies: Hx Diabetes Mellitus Type 1, Hx Diabetes Mellitus Type 2, Hx Hyperthyroidism, Hx Hypothyroidism Renal/ Medical History: Denies: Hx Peritoneal Dialysis Malignancy Medical History: Reports Hx Colorectal Cancer - Metastatic to liver, status post complete colectomy. Ileostomy. GI Medical History: Reports: Hx Colonoscopy. Denies: Hx Cirrhosis, Hx Gastroesophageal Reflux Disease, Hx Hepatitis Musculoskeltal Medical History: Denies Hx Arthritis Psychiatric Medical History: Denies: Hx Depression Infectious Medical History: Denies: Hx C-Diff, Hx Hepatitis, Hx MRSA Past Surgical History: Reports: Hx Abdominal Surgery - colon resection, Hx Appendectomy, Hx Bowel Surgery - Partial bowel resection, partial splenectomy, Hx Cholecystectomy, Hx Genitourinary Surgery - partial bladder removel per pt., Hx Ileostomy, Other - Total colectomy for colorectal cancer. - Immunizations Hx Diphtheria, Pertussis, Tetanus Vaccination: No Hx Pneumococcal Vaccination: 01/16/13 Review of Systems - Review of Systems Notes: My Normal Review Basic REVIEW OF SYSTEMS: CONSTITUTIONAL : Denies fever, chills, or sweats. Denies recent illness. EENT: Denies eye, ear, throat, or mouth pain or symptoms. Denies nasal or sinus congestion. CARDIOVASCULAR: Denies chest pain. RESPIRATORY: Denies cough, cold, or chest congestion. Denies shortness of breath, difficulty breathing, or wheezing. GASTROINTESTINAL: Chronic abdominal pain GENITOURINARY: Denies difficulty urinating, painful urination, burning, frequency, or blood in urine. SKIN: Denies rash or skin lesions. NEUROLOGICAL: Denies altered mental status or loss of consciousness. ALL OTHER SYSTEMS REVIEWED AND NEGATIVE. Physical Exam - Vital signs Vitals: Resp Pulse Ox 20 100 02/25/17 01:56 02/25/17 01:56 - Notes Notes: General Appearance: Patient is extremely thin with cerebral wasting. Patient's is very weak on exam. Patient has what appears to be no body fat and has severe muscle wasting. Patient appears to be in pain. Vitals: reviewed, See vital signs table. Head: no swelling or tenderness to the head Eyes: PERRL, EOMI, Conjuctiva clear Mouth: Dry mucous membranes Neck: Supple, no neck tenderness, No thyromegaly Lungs: No wheezing, No rales, No rhonci, No accessory muscle use, good air exchange bilaterally. Heart: Normal rate, Regular rythm, No murmur, no rub Abdomen: Normal BS, soft, No rigidity, mild abdominal pain to palpation that is nonfocal. Feeding tube in place. No redness or swelling around feeding tube site. Extremities: strength 5/5 in all extremities, good pulses in all extremities, no swelling or tenderness in the extremities, no edema. Skin: warm, dry, appropriate color, no rash Neuro: speech clear, oriented x 3, normal affect, responds appropriately to questions. Course - Re-evaluation Re-evalutation: 02/25/17 03:10 We will first evaluate the patient did talk to him at length about what the expectations were. The patient does have some hypertension. I informed her this could be related to infection but most likely is related to the fact that he is so thin so dry in conjunction with him being on pain medicine. Informed him that we can treat his pain but it may lower his blood pressure. Patient says that at this point he just wants his pain control. He says that he does not care for it because blood pressure to go down or if it could cause some . He is at the end stages of cancer and at this point wishes just to be kept comfortable. I did give him with 1 mg of Dilaudid. He still has a lot of pain. I will therefore give him 2 mg of Dilaudid. 02/25/17 03:51 Patient is now is sleeping. His pulse ox is normal. The pain medicine seems to have helped. We will continue to reassess him. Blood pressure remains normal. 02/25/17 05:33 I did go back and speak with the patient's family members at bedside. I did talk to them about patient's labs. I talked to him about letting him go home and making hospice. They prefer if the patient submitted tonight while they arrange hospice for the patient to go home to. We will admit the patient for pain control. Patient will be made DNR and comfort care. Before giving the patient pain medication I did discuss this with the patient with family present. Patient was adamant that he just wants to be kept comfortable regardless of how this might affect his vital signs. I did inform the patient to expect that he most likely will not live much longer and the patient is accepting of this is okay with this as long as he is kept comfortable. Dictation of this chart was performed using voice recognition software; therefore, there may be some unintended grammatical errors. - Vital Signs Vital signs: Temp Pulse Resp BP Pulse Ox 4 L 90/77 L 98 02/25/17 05:00 02/25/17 02:08 02/25/17 05:00 - Laboratory Result Diagrams: 02/25/17 03:46 02/25/17 03:46 Laboratory results interpreted by me: 02/25/17 02/25/17 03:46 03:46 Hgb 10.3 L Hct 32.4 L MCV 69 L MCH 22.0 L MCHC 31.8 L RDW 18.6 H Seg Neuts % (Manual) 80 H Band Neutrophils % 9 H Lymphocytes % (Manual) 5 L Abs Lymphs (Manual) 0.3 L Sodium 122.3 L Chloride 58 L Carbon Dioxide 52 H* BUN 147 H Creatinine 1.80 H Est GFR ( Amer) 50 L Est GFR (Non-Af Amer) 42 L Discharge - Discharge Clinical Impression: Metabolic alkalosis, Dehydration Malnutrition Qualifiers: Malnutrition type: unspecified type Qualified Code(s): E46 - Unspecified protein-calorie malnutrition Condition: Stable Disposition: ADMITTED OBSERVATION Admitting Provider: Hospitalist Unit Admitted: Medical Floor
[2017-02-25 04:11] LABS: CALCIUM 8.9 mg/dL (8.4-10.2); CHLORIDE 58 mmol/L (98-107); GLUCOSE 94 mg/dL (75-110); POTASSIUM 4.5 mmol/L (3.6-5.0); SODIUM 122.3 mmol/L (137-145)
[2017-02-25 04:26] LABS: HEMATOCRIT 32.4 % (37.9-51.0); HEMOGLOBIN 10.3 g/dL (13.5-17.0); MEAN CORPUSCULAR HGB CONC 31.8 g/dL (32.0-36.0); MEAN CORPUSCULAR VOLUME 69 fl (80-97); PLATELET COUNT 175 10^3/uL (150-450); RED BLOOD COUNT 4.69 10^6/uL (4.35-5.55); RED CELL DISTRIBUTION WIDTH 18.6 % (11.5-14.0); WHITE BLOOD COUNT 6.5 10^3/uL (4.0-10.5)
[2017-02-25 04:33] LABS: ABSOLUTE LYMPHOCYTES# (MANUAL) 0.3 10^3/uL (0.5-4.7); ABSOLUTE MONOCYTES # (MANUAL) 0.4 10^3/uL (0.1-1.4); ABSOLUTE NEUTROPHILS# (MANUAL) 5.8 10^3/uL (1.7-8.2); ANISOCYTOSIS 2+; BAND NEUTROPHILS % (MANUAL) 9 % (3-5); BASOPHILS % (MANUAL) 0 % (0-2); EOSINOPHILS % (MANUAL) 0 % (0-6); HYPOCHROMASIA 1+; LYMPHOCYTES % (MANUAL) 5 % (13-45); MONOCYTES % (MANUAL) 6 % (3-13); NUCLEATED RED BLOOD CELLS 1 /100 WBC (0); POIKILOCYTOSIS 1+; SEGMENTED NEUTROPHILS % (MAN) 80 % (42-78); TOTAL CELLS COUNTED 100; TOXIC GRANULATION 1+; TOXIC VACUOLATION PRESENT
[2017-02-25 04:34] LABS: BURR CELLS SLIGHT; OVALOCYTES 1+; PLATELET COMMENT ADEQUATE; SCHISTOCYTES SLIGHT; TARGET CELLS SLIGHT
[2017-02-25 04:38] LABS: ANION GAP 12 (5-19); BLOOD UREA NITROGEN 147 mg/dL (7-20)
[2017-02-25 04:40] LABS: CARBON DIOXIDE 52 mmol/L (22-30)
[2017-02-25] MEDS ORDERED: HYDROMORPHONE HCL INJ/PF 2 MG/ML AMPULE IV PRN (05:29)
[2017-02-25] MEDS ORDERED: LORAZEPAM INJ 2 MG/1 ML VIAL IV PRN ×2 (05:29→20:03)
[2017-02-25] MEDS ORDERED: ATROPINE SULFATE 1% OPH SOLN 5 ML BOTTLE SL PRN ×2 (05:30→20:03)
[2017-02-25] MEDS ORDERED: ZOLPIDEM TARTRATE 5 MG TABLET PO PRN ×2 (05:33→20:04)
[2017-02-25] MEDS ORDERED: ALPRAZOLAM 0.5 MG TABLET PO PRN ×2 (05:33→20:03)
--- NOTE | 2017-02-25 07:38 | PDOC H&P ---
History of Present Illness Admission Date/PCP: 02/25/17 05:58 ANDREI WILLARD MD History of Present Illness: JERE MANSFIELD is a 41 year old male with past medical history for stage IV colon cancer for the last 10 years. Patient has been on chemotherapy and radiation but is no longer a candidate for any further therapy. He is on palliative care at home and has a Dilaudid pump in place, but denies family felt his blood pressure was getting too low and was having some difficulty breathing at which time they stopped his Dilaudid pump. Apparently upon arrival to the emergency department, patient reported that he is not concerned with his blood pressure dying he is concerned with his pain. His mother is at bedside and is in agreement with the moving forward of comfort measures and plans to take him home on hospice. Past Medical History Cardiac Medical History: Denies: Congestive Heart Failure, DVT, Hyperlipidema, Hypertension, Pulmonary Embolism Pulmonary Medical History: Denies: Asthma, Chronic Obstructive Pulmonary Disease (COPD), Sleep Apnea, Tuberculosis Neurological Medical History: Denies: Seizures Endocrine Medical History: Denies: Diabetes Mellitus Type 1, Diabetes Mellitus Type 2, Hyperthyroidism, Hypothyroidism Malignancy Medical History: Reports: Colorectal Cancer - Metastatic to liver, status post complete colectomy. Ileostomy. GI Medical History: Denies: Cirrhosis, Gastroesophageal Reflux Disease, Hepatitis Musculoskeltal Medical History: Denies: Arthritis Psychiatric Medical History: Denies: Depression Infectious Medical History: Reports: Other Denies: Clostridium Difficile, Methicillin-Resistant Staph Aureus Infectious History Note: Fungemia fungemia Past Surgical History Past Surgical History: Reports: Appendectomy, Cholecystectomy, Ileostomy, Other - Total colectomy for colorectal cancer. Social History Smoking Status: Unknown if Ever Smoked Frequency of Alcohol Use: None Hx Recreational Drug Use: No Drugs: None Hx Prescription Drug Abuse: No - Advance Directive Resuscitation Status: Comfort Measures Only Surrogate healthcare decision maker:: Mother Karuna Mansfield Family History Family History: Reviewed & Not Pertinent Parental Family History Reviewed: No Children Family History Reviewed: No Sibling(s) Family History Reviewed.: No Medication/Allergy Allergies/Adverse Reactions: No Known Allergies Allergy (Verified 08/04/16 14:39) Review of Systems ROS unobtainable: Due to mental status Physical Exam Vital Signs: Temp Pulse Resp BP Pulse Ox 4 L 90/77 L 98 02/25/17 05:00 02/25/17 02:08 02/25/17 05:00 General appearance: PRESENT: thin, other - Cachectic and severely ill-appearing Head exam: PRESENT: atraumatic, normocephalic Eye exam: PRESENT: conjunctiva pale. ABSENT: scleral icterus Ear exam: PRESENT: normal external ear exam Mouth exam: PRESENT: dry mucosa, tongue midline Neck exam: PRESENT: other - Thin and all structures evident. ABSENT: JVD, lymphadenopathy, thyromegaly, tracheal deviation Respiratory exam: PRESENT: clear to auscultation luisa. ABSENT: rales, rhonchi, wheezes Cardiovascular exam: PRESENT: RRR, +S1, +S2. ABSENT: diastolic murmur, rubs, systolic murmur Pulses: ABSENT: normal dorsalis pedis pul Vascular exam: ABSENT: normal capillary refill GI/Abdominal exam: PRESENT: soft, other - Feeding tube in place. ABSENT: distended, guarding, rebound, tenderness Rectal exam: PRESENT: deferred Extremities exam: ABSENT: calf tenderness, clubbing, pedal edema Neurological exam: PRESENT: other - Obtunded Psychiatric exam: PRESENT: other - Obtunded Skin exam: PRESENT: dry, warm. ABSENT: cyanosis, rash Assessment & Plan - Diagnosis (1) Comfort measures only status Is this a current diagnosis for this admission?: Yes (2) Hyponatremia Is this a current diagnosis for this admission?: Yes (3) Severe protein-calorie malnutrition Is this a current diagnosis for this admission?: Yes (4) Dehydration Is this a current diagnosis for this admission?: Yes (5) Malnutrition Qualifiers: Malnutrition type: unspecified type Qualified Code(s): E46 - Unspecified protein-calorie malnutrition Is this a current diagnosis for this admission?: Yes (6) Metabolic alkalosis Is this a current diagnosis for this admission?: Yes (7) Acute renal failure Qualifiers: Is this a current diagnosis for this admission?: Yes (8) Anemia Is this a current diagnosis for this admission?: Yes (9) Chronic pain Qualifiers: Is this a current diagnosis for this admission?: Yes (10) Colon cancer Qualifiers: Is this a current diagnosis for this admission?: Yes - Plan Summary Plan Summary: Will admit patient for comfort only status and place patient on as needed Dilaudid in addition to his normal allotted pump as well as Ativan and atropine drops as needed. I discussed at length with his mother his case and she is in agreement with this. Will consult discharge planning for help with establishing home hospice. Mother agrees to and understands no fluids, no vitals, no labs.
[2017-02-25] MEDS ORDERED: MORPHINE SULFATE 10 MG/ML INJ ONE (11:20)
[2017-02-25] MEDS ORDERED: HYDROMORPHONE HCL INJ/PF 2 MG/ML AMPULE ONE (13:26)
--- NOTE | 2017-02-25 13:43 | PROGRESS NOTE E ---
Progress Note NAME: JERE CRUZ : 1975 AGE: 41Y DATE: 02/25/2017 ROOM: ED11 SUBJECTIVE: The patient is currently lying in bed. The patient is in bed. They are trying to get his home pain pump working. The patient denies any vomiting. There have been no reported episodes of vomiting nor diarrhea, and the patient does not voice any specific concerns at this time. REVIEW OF SYSTEMS: Rest of review of systems negative. MEDICATIONS: Medications have been reviewed. OBJECTIVE: GENERAL: The patient is an unfortunate 41-year-old -Cong[place]ese male that is awake, alert. He is oriented and unbelievably cachectic, does not appear to be in acute distress. VITAL SIGNS: Heart rate is 67, respiratory rate of 12, oxygen saturation is 98% on room air. SKIN: Warm. There is no rash. HEENT: The patient's face is completely emaciated. No evidence of JVP. Great vessels through the neck are obvious. CARDIOVASCULAR SYSTEM: Heart is bounding, regular. EXTREMITIES: No edema. PSYCHIATRIC: Appears comfortable. DIAGNOSTICS: Lab values are as follows: Hematology obtained on 02/25/2017: WBCs are 6.5, hemoglobin is 10.3, hematocrit is 32.4, platelet count is 175,000. IMPRESSION AND PLAN: 1. METASTATIC COLON CANCER. The patient has been placed on comfort measures. Currently awaiting hospice input. The patient is only receiving comfort measures at this time. 2. HYPONATREMIA. The patient is only receiving comfort measures. 3. SEVERE PROTEIN CALORIE MALNOURISHMENT. The patient's clinical presentation does not appear to be compatible with life. 4. DEHYDRATION. Currently receiving only comfort measures. 5. CHRONIC PAIN SECONDARY TO NUMBER 1. Will palliate. 6. OPIATE DEPENDENCY, CONTINUOUS. 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 DISPOSITION: The patient is a DO NOT RESUSCITATE/DO NOT INTUBATE with comfort care measures only. The patient's prognosis is quite poor. Hopefully, we can get him home with hospice as he has a supportive family that wants to take him home. Time spent on this followup including assessment, plan, physical examination, patient education, family meeting, review of records, and resource alignment is 60 minutes. DICTATING PHYSICIAN: ANDREI BROWN NP [id number] PHY#: [id number] ID: [id number] JOB#: [id number] ACCT: [id number] cc: >
[2017-02-25 20:04] VITALS: BP 80/60
[2017-02-25] MEDS: HYDROMORPHONE HCL INJ/PF 2 MG/ML AMPULE IV PRN (20:20)
[2017-02-26] MEDS: HYDROMORPHONE HCL INJ/PF 2 MG/ML AMPULE IV PRN (03:26)
--- NOTE | 2017-02-26 09:34 | DEATH SUMMARY E ---
Summary NAME: JERE CRUZ : 1975 AGE: 41Y ADMITTED: 02/25/2017 : 02/26/2017 TIME OF : 0832 CAUSE OF : Metastatic colon cancer. FINAL DIAGNOSES: 1. Metastatic colon cancer. 2. Severe protein calorie malnourishment. 3. Dehydration. 4. Hyponatremia. 5. Chronic pain secondary to number 1. 6. Opiate dependency continuous. 7. Acute renal failure. DIAGNOSTICS: Hematology obtained on 02/25/2017: WBCs are 6.5, hemoglobin is 10.3, hematocrit is 34.4, platelet count is 175,000. Chemistry obtained on 02/25/2017: Sodium is 122, potassium 4.5, chloride is 58, carbon dioxide 52, BUN 147, creatinine is 1.80, glucose 94, calcium is 8.9. HISTORY OF PRESENT ILLNESS: The patient is a 41-year-old -[place] male with a past medical history of metastatic colon cancer who is well known to the hospitalist service. The patient presented to the emergency department with a chief complaint of difficulty breathing. The patient, who is on palliative care at home, had a Dilaudid pump in place and had been holding his pain medications at home due to his low blood pressures. However, the patient was in intractable pain. After discussion with the family, they have elected to proceed with comfort measures. Given the patient's persistent pain and ongoing 10 year mackay with colorectal cancer, the family elected to proceed, with the patient's agreeance to comfort measures only. The patient was placed on Dilaudid pump and given palliative measures. The patient was seen by his home hospice and palliative care agency. They elected to defer transport back home and to keep him within the facility. The patient comfortably surrounded by his family at 0832. The patient ceased respirations and pulse. Time spent on this summary is 15 minutes. DICTATING PHYSICIAN: ANDREI BROWN NP [id number] PHY#: [id number] ID: [id number] JOB#: [id number] ACCT: [id number] cc:ANDREI BROWN NP > [facility]
== END 2017-02-26 11:51 | disposition left against medical advice (07) | DRG 640 ==
LOC: ER 01:45 → UNDOADMOB 05:32 → EH 05:32 → 5 16:00 → OBSVTOIN 18:09
PROVIDERS: ADMIT Family Medicine; ATTEND Family Medicine
DX: E87.1 Hypo-osmolality and hyponatremia (principal); E43 Unspecified severe protein-calorie malnutrition; C18.9 Malignant neoplasm of colon, unspecified; C78.7 Secondary malignant neoplasm of liver and intrahepatic bile duct; N17.9 Acute kidney failure, unspecified; Z68.1 Body mass index [BMI] 19.9 or less, adult; R64 Cachexia; E86.0 Dehydration; G89.3 Neoplasm related pain (acute) (chronic); E87.3 Alkalosis; Z51.5 Encounter for palliative care; Z79.891 Long term (current) use of opiate analgesic; Z92.3 Personal history of irradiation; Z92.21 Personal history of antineoplastic chemotherapy; Z93.2 Ileostomy status; Z90.49 Acquired absence of other specified parts of digestive tract; D63.0 Anemia in neoplastic disease
CPT/HCPCS: 36415; 80048; 85025; 96361; 96374; 96376; 99285; J1170; J3490; J7040